=== PATIENT | female | born 1970 | race Caucasian/White ===

== ENCOUNTER 2020-07-20 15:56 | Emergency (ER) | payer MEDICARE, MEDICAID, SELFPAY ==
--- NOTE | 2020-07-20 | ECG_ITS ---
Test Reason : CP Blood Pressure : / mmHG Vent. Rate : 085 BPM Atrial Rate : 085 BPM P-R Int : 166 ms QRS Dur : 078 ms QT Int : 400 ms P-R-T Axes : 039 -02 028 degrees QTc Int : 476 ms Normal sinus rhythm Cannot rule out Anterior infarct (cited on or before 03-MAY-2019) Abnormal ECG When compared with ECG of 15-JUL-2020 15:26, Heart rate has decreased Referred By: Ry Gonzalez Electronically Signed By:REYNA POWER
--- NOTE | 2020-07-20 | XR_ITS ---
EXAMINATION: XR CHEST CLINICAL INFORMATION: Shortness of breath COMPARISON: 07/15/2020 TECHNIQUE: 2 views of the chest were obtained. FINDINGS: No significant abnormality is noted involving the heart, lungs, mediastinum, bony thorax or soft tissues. Again seen is a left chest wall port with its tip at the SVC/RA junction. IMPRESSION: No acute intrathoracic disease.
--- NOTE | 2020-07-20 18:32 | ED_ITS ---
HPI - Asthma General Chief Complaint: Dyspnea <Ry Gonzalez MD - Last Filed: 07/21/20 08:53> Stated Complaint: sob <Ry Gonzalez MD - Last Filed: 07/21/20 08:53> Time Seen by Provider: 07/20/20 18:32 <Ry Gonzalez MD - Last Filed: 07/21/20 08:53> Source: patient <Ry Gonzalez MD - Last Filed: 07/21/20 08:53> Mode of arrival: ambulatory <Ry Gonzalez MD - Last Filed: 07/21/20 08:53> Limitations: no limitations <Ry Gonzalez MD - Last Filed: 07/21/20 08:53> History of Present Illness HPI Narrative: patient was admitted and discharged yesterday, had a cardiac work up. Patient has a clotting disorder and her heart is racing. Patient has been ad mitted mulitple times in the last 3 weeks. <Ry Gonzalez MD - Last Filed: 07/21/20 08:53> MD complaint: shortness of breath <Ry Gonzalez MD - Last Filed: 07/21/20 08:53> Onset (ago): hour(s) <Ry Gonzalez MD - Last Filed: 07/21/20 08:53> Severity: moderate <Ry Gonzalez MD - Last Filed: 07/21/20 08:53> Associated symptoms: dry cough <Ry Gonzalez MD - Last Filed: 07/21/20 08:53> Asthma History: adult onset <Ry Gonzalez MD - Last Filed: 07/21/20 08:53> Related Data Current Asthma Therapy: inhaled bronchodilator, inhaled steroid and recent oral steroid <Ry Gonzalez MD - Last Filed: 07/21/20 08:53> Allergies/Adverse Reactions: Allergies Allergy/AdvReac Type Severity Reaction Status Date / Time dexamethasone [From DECADRON] Allergy Severe HIVES Verified 07/20/20 20:23 oxycodone [From PERCOCET] Allergy Severe HIVES Verified 07/20/20 20:23 azithromycin Allergy Intermediate ITCHING Verified 07/20/20 20:23 [From ZITHROMAX Z-XANDER] acetaminophen [Percocet] Allergy Unknown Unknown Verified 07/20/20 20:23 amoxicillin [AMOXICILLIN] Allergy Unknown UNKNOWN, Verified 07/20/20 20:23 hives, swelling budesonide [From SYMBICORT] Allergy Unknown UNKNOWN Verified 07/20/20 20:23 cefpodoxime [From VANTIN] Allergy Unknown UNKNOWN Verified 07/20/20 20:23 cefuroxime [From CEFTIN] Allergy Unknown UNKNOWN Verified 07/20/20 21:42 Cephalosporins Allergy Unknown UNKNOWN Verified 07/20/20 20:23 [CEPHALOSPORINS] ciprofloxacin [From CIPRO] Allergy Unknown UNKNOWN Verified 07/20/20 20:23 diazepam [DIAZEPAM] Allergy Unknown ITCHING Verified 07/20/20 20:23 diphtheria,pertussis Allergy Unknown Unknown Verified 07/20/20 20:23 (acellular),te [Adacel(Tdap Adolesn/Adult)(PF)] erythromycin base Allergy Unknown UNKNOWN Verified 07/20/20 20:23 [ERYTHROMYCIN BASE] fluticasone [Advair Diskus] Allergy Unknown Unknown Verified 07/20/20 20:23 formoterol [From SYMBICORT] Allergy Unknown UNKNOWN Verified 07/20/20 20:23 hydrocodone [From VICODIN] Allergy Unknown unknown Verified 07/20/20 20:23 Iodinated Contrast Media Allergy Unknown UNKNOWN Verified 07/20/20 20:23 [CONTRAST, IV] levofloxacin [From LEVAQUIN] Allergy Unknown UNKNOWN Verified 07/20/20 20:23 penicillin G Allergy Unknown Unknown Verified 07/20/20 20:23 penicillin V Allergy Unknown Unknown Verified 07/20/20 20:23 Penicillins [PENICILLINS] Allergy Unknown UNKNOWN Verified 07/20/20 20:23 salmeterol [Advair Diskus] Allergy Unknown Unknown Verified 07/20/20 20:23 sertraline [From ZOLOFT] Allergy Unknown SUICIDAL Verified 07/20/20 20:23 Sulfa (Sulfonamide Allergy Unknown hives Verified 07/20/20 20:23 Antibiotics) tetanus and diphtheria Allergy Unknown UNKNOWN Verified 07/20/20 20:23 toxoids [TETANUS & DIPHTHERIA TOXOIDS] Vantin Allergy Unknown Unknown Verified 07/20/20 20:23 ketorolac [From TORADOL] AdvReac Mild ITCHING Verified 07/20/20 20:23 Ceftin Allergy Unknown Unknown Uncoded 07/20/20 20:23 IV dye Allergy Unknown Unknown Uncoded 07/20/20 20:23 Symbicort Allergy Unknown Unknown Uncoded 07/20/20 20:23 Tetanus Allergy Unknown Unknown Uncoded 07/20/20 20:23 Erythromycin Allergy Unknown Uncoded 07/20/20 20:23 <Ry Gonzalez MD - Last Filed: 07/21/20 08:53> Review of Systems Constitutional: Constitutional: Reports no additional constitutional complaints <Ry Gonzalez MD - Last Filed: 07/21/20 08:53> Eyes: Eyes: Reports no additional eye complaints <Ry Gonzalez MD - Last Filed: 07/21/20 08:53> ENT: Denies dizziness <Ry Gonzalez MD - Last Filed: 07/21/20 08:53> Cardiovascular: Cardiovascular: Reports no additional cardiovascular complaints <Ry Gonzalez MD - Last Filed: 07/21/20 08:53> Respiratory: Respiratory: Reports as per HPI <Ry Gonzalez MD - Last Filed: 07/21/20 08:53> Gastrointestinal: Gastrointestinal: Reports no additional gastrointestinal complaints <Ry Gonzalez MD - Last Filed: 07/21/20 08:53> Genitourinary: Genitourinary: Reports no additional female genitourinary complaints <Ry Gonzalez MD - Last Filed: 07/21/20 08:53> Musculoskeletal: Musculoskeletal: Reports no additional musculoskeletal complaints <Ry Gonzalez MD - Last Filed: 07/21/20 08:53> Integumentary/Breasts: Skin/Breast: Denies rash <Ry Gonzalez MD - Last Filed: 07/21/20 08:53> Neurologic: Reports system reviewed and no additional complaints, except as documented, Denies dizziness and Denies Sensory deficit (Neuro) <Ry Gonzalez MD - Last Filed: 07/21/20 08:53> Psychiatric: Psychiatric: Denies anxiety <Ry Gonzalez MD - Last Filed: 07/21/20 08:53> PMFSH Past Medical History Medical History: Medical History Anxiety Asthma Depression DVT (deep venous thrombosis) <Ry Gonzalez MD - Last Filed: 07/21/20 08:53> Social History Social History: Social History Advance Directives: No Advance Directives Information Provided: No <Ry Gonzalez MD - Last Filed: 07/21/20 08:53> Physical Exam Vital Signs and I&O and Narrative: Vital Signs and I&O: Vital Signs Temp 98.0 F 07/20/20 21:32 Pulse 86 07/20/20 22:53 Resp 16 07/20/20 22:53 BP 116/60 07/20/20 22:53 Pulse Ox 98 07/20/20 22:53 Intake & Output 07/20/20 07/21/20 07/21/20 18:59 06:59 18:59 Weight 99.79 kg Body Mass Index 43.0 <Ry Gonzalez MD - Last Filed: 07/21/20 08:53> Vital Signs and I&O: Vital Signs Temp 98.0 F 07/20/20 21:32 Pulse 86 07/20/20 22:53 Resp 16 07/20/20 22:53 BP 116/60 07/20/20 22:53 Pulse Ox 98 07/20/20 22:53 Intake & Output 07/20/20 07/21/20 07/21/20 18:59 06:59 18:59 Weight 99.79 kg Body Mass Index 43.0 <Arnie Vital MD - Last Filed: 07/20/20 23:23> Const: General: comfortable <Ry Gonzalez MD - Last Filed: 07/21/20 08:53> Nutritional Appearance: obese <Ry Gonzalez MD - Last Filed: 07/21/20 08:53> Orientation/consciousness: oriented to person and patient oriented x3 <Ry Gonzalez MD - Last Filed: 07/21/20 08:53> Limitations: no limitations <Ry Gonzalez MD - Last Filed: 07/21/20 08:53> HENMT: Head: Yes normal to inspection <Ry Gonzalez MD - Last Filed: 07/21/20 08:53> Ears: external ears normal <Ry Gonzalez MD - Last Filed: 07/21/20 08:53> General nose exam: Normal external nose present <Ry Gonzalez MD - Last Filed: 07/21/20 08:53> Mouth: Normal oral and palatal mucosa present and oropharynx normal <Ry Gonzalez MD - Last Filed: 07/21/20 08:53> Throat: Yes posterior oropharynx normal <Ry Gonzalez MD - Last Filed: 07/21/20 08:53> Eyes: General: appearance normal, both eyes and all related structures <Ry Gonzalez MD - Last Filed: 07/21/20 08:53> Neck: Other: supple <Ry Gonzalez MD - Last Filed: 07/21/20 08:53> Neck: Yes normal visual inspection <Ry Gonzalez MD - Last Filed: 07/21/20 08:53> Chest: Chest palpation & inspection: normal inspection of the chest <Ry Gonzalez MD - Last Filed: 07/21/20 08:53> Resp: Auscultation: clear to auscultation bilaterally <Ry Gonzalez MD - Last Filed: 07/21/20 08:53> Cardio: Jugular venous distension: no JVD <Ry Gonzalez MD - Last Filed: 07/21/20 08:53> Rate: regular rate <Ry Gonzalez MD - Last Filed: 07/21/20 08:53> Rhythm: regular rhythm <Ry Gonzalez MD - Last Filed: 07/21/20 08:53> Heart sounds: S1 normal heart sound present and S2 normal heart sound present <Ry Gonzalez MD - Last Filed: 07/21/20 08:53> GI: Inspection: Yes normal to inspection <Ry Gonzalez MD - Last Filed: 07/21/20 08:53> Palpation (GI): Soft to palpation, nontender and No hepatosplenomegaly present <Ry Gonzalez MD - Last Filed: 07/21/20 08:53> Auscultation: normal bowel sounds <Ry Gonzalez MD - Last Filed: 07/21/20 08:53> : General: Yes no CVA tenderness <Ry Gonzalez MD - Last Filed: 07/21/20 08:53> Back/Spine/Pelvis: Back: no CVA tenderness <Ry Gonzalez MD - Last Filed: 07/21/20 08:53> Skin: General skin exam: no rashes or lesions noted <Ry Gonzalez MD - Last Filed: 07/21/20 08:53> Neuro: General: oriented to person and patient oriented x3 <Ry Gonzalez MD - Last Filed: 07/21/20 08:53> Cranial nerves: Yes CN's II-XII intact bilaterally <Ry Gonzalez MD - Last Filed: 07/21/20 08:53> Motor exam (neuro): 5/5 motor strength present throughout <Ry Gonzalez MD - Last Filed: 07/21/20 08:53> Sensory Exam: No Sensory deficit (Neuro) <Ry Gonzalez MD - Last Filed: 07/21/20 08:53> Extrem: General: Yes normal to inspection <Ry Gonzalez MD - Last Filed: 07/21/20 08:53> Psych: Appearance: grossly normal <Ry Gonzalez MD - Last Filed: 07/21/20 08:53> Course Reevaluation(s) Reevaluation #1: still awaiting blood draw <Ry Gonzalez MD - Last Filed: 07/21/20 08:53> Time: 20:46 <Ry Gonzalez MD - Last Filed: 07/21/20 08:53> Reevaluation #2: signed patient out to Dr. Vital expect work up to be negative and patient to go home <Ry Gonzalez MD - Last Filed: 07/21/20 08:53> Reevaluation #3: I received signout from Dr. Gonzalez <Arnie Vital MD - Last Filed: 07/20/20 23:23> Time: 21:00 <Arnie Vital MD - Last Filed: 07/20/20 23:23> Additional Reevaluation(s): 2230: Patients lab work, chest x-ray have returned. Her INR was subtherapeutic, which the patient was made aware of. Chest x-ray is unremarkable. Troponin and EKG are not consistent with myocardial ischemia. I have low suspicion of pulmonary embolism this patient as She is not hypoxic, she is not tachycardic and reports that she has been compliant with her anticoagulation although it is subtherapeutic she has had numerous supratherapeutic INRs over the past several days when she was an inpatient. I received additional history from the patient she has been experiencing left-sided chest pain that is pleuritic in nature without any neurologic symptoms and I do not think this is an aortic dissection. She was provided with discharge instructions and return precautions which she acknowledged. <Arnie Vital MD - Last Filed: 07/20/20 23:23> MDM - Asthma Lab Data Result diagrams: : 07/20/20 21:13 07/20/20 21:13 <Ry Gonzalez MD - Last Filed: 07/21/20 08:53> Labs: Lab Results 07/20/20 07/20/20 07/20/20 Range/Units 21:13 21:13 21:13 WBC 5.8 (4.8-10.8) X10*3/uL RBC 3.64 L (4.20-5.50) X10*6/uL Hgb 10.5 L (12.0-16.0) g/dl Hct 31.8 L (37-47) % MCV 87.4 (80-98) fL MCH 28.8 (27.0-33.0) pg MCHC 33.0 (31.0-35.0) g/dl RDW 14.4 (11.0-16.0) % Plt Count 223 (160-400) X10*3/uL MPV 11.0 (9.4-12.3) fL Immature Gran % (Auto) 1.0 H (0.0-0.4) % Neut % (Auto) 64.0 (45-73) % Lymph % (Auto) 24.0 (20-40) % [place] % (Auto) 7.7 (2-11) % Eos % (Auto) 3.3 (0-4) % Baso % (Auto) 0.0 (0-2) % Neut # (Auto) 3.7 (2.0-8.3) X10*3/uL Lymph # (Auto) 1.4 (1.2-4.9) X10*3/uL [place] # (Auto) 0.5 (0.1-1.2) X10*3/uL Eos # (Auto) 0.2 (0.0-0.4) X10*3/uL Baso # (Auto) 0.0 (0.0-0.2) X10*3/uL Abs Immat Gran (auto) 0.06 H (0.00-0.03) X10*3/uL Absolute Nucleated RBC 0.000 (0.0-0.012) X10*3/uL Nucleated RBC % (auto) 0.0 (0.0-0.2) /100WBC PT (10.8-13.0) SEC INR (0.9-1.1) Sodium 138 (135-145) mmol/L Potassium 3.5 (3.3-5.1) mmol/l Chloride 108 (96-108) mmol/L Carbon Dioxide 23 (22-29) mmol/L Anion Gap 11 L (12-20) BUN 26 H (9-16) mg/dL Creatinine 0.95 (0.5-1.4) mg/dL Estim Creat Clear Calc 75.1 Estimated GFR > 60 Random Glucose 114 (60-115) mg/dL Calcium 7.9 L (8.4-10.2) mg/dL Troponin I High Sens < 3.5 (<3.5-17.0) ng/L 07/20/20 Range/Units 21:13 WBC (4.8-10.8) X10*3/uL RBC (4.20-5.50) X10*6/uL Hgb (12.0-16.0) g/dl Hct (37-47) % MCV (80-98) fL MCH (27.0-33.0) pg MCHC (31.0-35.0) g/dl RDW (11.0-16.0) % Plt Count (160-400) X10*3/uL MPV (9.4-12.3) fL Immature Gran % (Auto) (0.0-0.4) % Neut % (Auto) (45-73) % Lymph % (Auto) (20-40) % [place] % (Auto) (2-11) % Eos % (Auto) (0-4) % Baso % (Auto) (0-2) % Neut # (Auto) (2.0-8.3) X10*3/uL Lymph # (Auto) (1.2-4.9) X10*3/uL [place] # (Auto) (0.1-1.2) X10*3/uL Eos # (Auto) (0.0-0.4) X10*3/uL Baso # (Auto) (0.0-0.2) X10*3/uL Abs Immat Gran (auto) (0.00-0.03) X10*3/uL Absolute Nucleated RBC (0.0-0.012) X10*3/uL Nucleated RBC % (auto) (0.0-0.2) /100WBC PT 18.1 H (10.8-13.0) SEC INR 1.5 H (0.9-1.1) Sodium (135-145) mmol/L Potassium (3.3-5.1) mmol/l Chloride (96-108) mmol/L Carbon Dioxide (22-29) mmol/L Anion Gap (12-20) BUN (9-16) mg/dL Creatinine (0.5-1.4) mg/dL Estim Creat Clear Calc Estimated GFR Random Glucose (60-115) mg/dL Calcium (8.4-10.2) mg/dL Troponin I High Sens (<3.5-17.0) ng/L <Ry Gonzalez MD - Last Filed: 07/21/20 08:53> Lab Results 07/20/20 07/20/20 07/20/20 Range/Units 21:13 21:13 21:13 WBC 5.8 (4.8-10.8) X10*3/uL RBC 3.64 L (4.20-5.50) X10*6/uL Hgb 10.5 L (12.0-16.0) g/dl Hct 31.8 L (37-47) % MCV 87.4 (80-98) fL MCH 28.8 (27.0-33.0) pg MCHC 33.0 (31.0-35.0) g/dl RDW 14.4 (11.0-16.0) % Plt Count 223 (160-400) X10*3/uL MPV 11.0 (9.4-12.3) fL Immature Gran % (Auto) 1.0 H (0.0-0.4) % Neut % (Auto) 64.0 (45-73) % Lymph % (Auto) 24.0 (20-40) % [place] % (Auto) 7.7 (2-11) % Eos % (Auto) 3.3 (0-4) % Baso % (Auto) 0.0 (0-2) % Neut # (Auto) 3.7 (2.0-8.3) X10*3/uL Lymph # (Auto) 1.4 (1.2-4.9) X10*3/uL [place] # (Auto) 0.5 (0.1-1.2) X10*3/uL Eos # (Auto) 0.2 (0.0-0.4) X10*3/uL Baso # (Auto) 0.0 (0.0-0.2) X10*3/uL Abs Immat Gran (auto) 0.06 H (0.00-0.03) X10*3/uL Absolute Nucleated RBC 0.000 (0.0-0.012) X10*3/uL Nucleated RBC % (auto) 0.0 (0.0-0.2) /100WBC PT (10.8-13.0) SEC INR (0.9-1.1) Sodium 138 (135-145) mmol/L Potassium 3.5 (3.3-5.1) mmol/l Chloride 108 (96-108) mmol/L Carbon Dioxide 23 (22-29) mmol/L Anion Gap 11 L (12-20) BUN 26 H (9-16) mg/dL Creatinine 0.95 (0.5-1.4) mg/dL Estim Creat Clear Calc 75.1 Estimated GFR > 60 Random Glucose 114 (60-115) mg/dL Calcium 7.9 L (8.4-10.2) mg/dL Troponin I High Sens < 3.5 (<3.5-17.0) ng/L 07/20/20 Range/Units 21:13 WBC (4.8-10.8) X10*3/uL RBC (4.20-5.50) X10*6/uL Hgb (12.0-16.0) g/dl Hct (37-47) % MCV (80-98) fL MCH (27.0-33.0) pg MCHC (31.0-35.0) g/dl RDW (11.0-16.0) % Plt Count (160-400) X10*3/uL MPV (9.4-12.3) fL Immature Gran % (Auto) (0.0-0.4) % Neut % (Auto) (45-73) % Lymph % (Auto) (20-40) % [place] % (Auto) (2-11) % Eos % (Auto) (0-4) % Baso % (Auto) (0-2) % Neut # (Auto) (2.0-8.3) X10*3/uL Lymph # (Auto) (1.2-4.9) X10*3/uL [place] # (Auto) (0.1-1.2) X10*3/uL Eos # (Auto) (0.0-0.4) X10*3/uL Baso # (Auto) (0.0-0.2) X10*3/uL Abs Immat Gran (auto) (0.00-0.03) X10*3/uL Absolute Nucleated RBC (0.0-0.012) X10*3/uL Nucleated RBC % (auto) (0.0-0.2) /100WBC PT 18.1 H (10.8-13.0) SEC INR 1.5 H (0.9-1.1) Sodium (135-145) mmol/L Potassium (3.3-5.1) mmol/l Chloride (96-108) mmol/L Carbon Dioxide (22-29) mmol/L Anion Gap (12-20) BUN (9-16) mg/dL Creatinine (0.5-1.4) mg/dL Estim Creat Clear Calc Estimated GFR Random Glucose (60-115) mg/dL Calcium (8.4-10.2) mg/dL Troponin I High Sens (<3.5-17.0) ng/L <Arnie Vital MD - Last Filed: 07/20/20 23:23> ECG Data Attestation: I personally reviewed and interpreted this ECG as follows: <Ry Gonzalez MD - Last Filed: 07/21/20 08:53> ECG interpretation date: 07/20/20 <Ry Gonzalez MD - Last Filed: 07/21/20 08:53> ECG interpretation time: 20:15 <Ry Gonzalez MD - Last Filed: 07/21/20 08:53> Interpretation: sinus rate of 85, no st or twave changes <Ry Gonzalez MD - Last Filed: 07/21/20 08:53> Discharge Plan Discharge Clinical Impression: Left-sided chest pain <Ry Gonzalez MD - Last Filed: 07/21/20 08:53> Patient Disposition: Home, Self-Care <Ry Gonzalez MD - Last Filed: 07/21/20 08:53> Instructions: Chest Pain (ED) <Ry Gonzalez MD - Last Filed: 07/21/20 08:53> Additional Instructions: Your lab work, WKG, and chest xray were reassuring. Your Coumadin was slightly low, please have this rechecked tomorrow or the next day. Please continue to take all of your medications at home. Followup with your primary care doctor in 1-2 days for reevaluation. If you develop any new or concerning symptoms please return to the emergency department. <Ry Gonzalez MD - Last Filed: 07/21/20 08:53> Interventions: ED Discharge Assessment Last Done: 07/20/20 23:42 <Ry Gonzalez MD - Last Filed: 07/21/20 08:53> Discharge Date/Time: 07/20/20 23:15 <Ry Gonzalez MD - Last Filed: 07/21/20 08:53>
[2020-07-20 18:47] VITALS: BP 120/42; PULSE 86; RESP 20; TEMP 36.6; O2SAT 98; BMI 43.0
--- NOTE | 2020-07-20 19:44 | PC.NURSE ---
Assumed care of pt. Pt resting in stretcher c/o pain which radiates into left shoulder, rating pain 8/10. MD aware. Pt alert, respirations easy, n/l. skin w/d. VS obtained. Will continue to montor pt.
[2020-07-20 19:46] VITALS: BP 118/56; PULSE 88; RESP 18
[2020-07-20 21:17] LABS: MANUAL DIFF FLAG NO
[2020-07-20] MEDS: Morphine Sulfate 4 MG/ML CARTRIDGE IVPUSH ×2 (21:17→22:48)
[2020-07-20 21:20] LABS: Eosinophils Absolute Auto 0.2 X10*3/uL (0.0-0.4); Eosinophils Percent Auto 3.3 % (0-4); Hematocrit 31.8 % (37-47); Hemoglobin 10.5 g/dl (12.0-16.0); Imm Gran Abs Auto 0.06 X10*3/uL (0.00-0.03); Lymphocytes Absolute Auto 1.4 X10*3/uL (1.2-4.9); Mean Corpuscular Hemoglobin 28.8 pg (27.0-33.0); Mean Corpuscular Volume 87.4 fL (80-98); Monocytes Absolute Auto 0.5 X10*3/uL (0.1-1.2); Monocytes Percent Auto 7.7 % (2-11); Neutrophils Absolute Auto 3.7 X10*3/uL (2.0-8.3); Platelet Count 223 X10*3/uL (160-400); Red Blood Count 3.64 X10*6/uL (4.20-5.50); Red Cell Distribution Width 14.4 % (11.0-16.0); White Blood Count 5.8 X10*3/uL (4.8-10.8)
[2020-07-20 21:30] LABS: INTERNATIONAL NORM RATIO 1.5 (0.9-1.1); Prothrombin Time 18.1 SEC (10.8-13.0)
[2020-07-20 21:32] VITALS: BP 119/64; PULSE 82; RESP 18; TEMP 36.7
--- NOTE | 2020-07-20 21:46 | PC.NURSE ---
Port accessed at 2114 and pt medicated for left sided chest pain rating pain 8/10.
[2020-07-20 21:48] LABS: Anion Gap 11 (12-20); Blood Urea Nitrogen 26 mg/dL (9-16); Calcium 7.9 mg/dL (8.4-10.2); Carbon Dioxide 23 mmol/L (22-29); Chloride 108 mmol/L (96-108); Creatinine Clr Calc Pharmacy 75.1; Estimated Glomerular Filt Rate > 60; Glucose Random 114 mg/dL (60-115); Potassium 3.5 mmol/l (3.3-5.1); Sodium 138 mmol/L (135-145)
[2020-07-20 21:53] LABS: Troponin-I High Sensitivity < 3.5 ng/L (<3.5-17.0)
[2020-07-20 22:06] VITALS: BP 119/64; PULSE 86; RESP 16; O2SAT 97
[2020-07-20] MEDS: Heparin Sodium,Porcine Flush 50 UNITS, 0.9 % Sodium Chloride Flush 5 ML IVFLUSH (22:30)
--- NOTE | 2020-07-20 22:52 | PC.NURSE ---
PT C/O PAIN TO LEFT CHEST AREA WHICH RADIATES INTO LEFT SHOULDER. PT MEDICATED PER EMAR FOR PAIN. PT C/O NAUSEA, MD AWARE.
[2020-07-20 22:53] VITALS: BP 116/60; PULSE 86; RESP 16; O2SAT 98
[2020-07-20] MEDS: ondansetron HCL 4 MG/2 ML VIAL IVPUSH (23:00)
== END 2020-07-20 23:15 | disposition home or self-care (01) ==
PROVIDERS: Emergency Medicine; Emergency Provider Emergency Medicine; PCP Family Medicine
DX: R07.9 Chest pain, unspecified (principal); J45.909 Unspecified asthma, uncomplicated; Z86.718 Personal history of other venous thrombosis and embolism; Z79.01 Long term (current) use of anticoagulants
CPT/HCPCS: 36415; 71046; 80048; 84484; 85025; 85610; 93005; 93010; 96374; 96375; 96376; 99284; J2270; J2405

== ENCOUNTER 2020-08-03 17:16 | Inpatient (IN) | payer MEDICARE, MEDICAID, SELFPAY ==
[2020-08-03 18:29] VITALS: PULSE 100; RESP 18; O2SAT 100
[2020-08-03 18:31] VITALS: BP 100/67; PULSE 112; RESP 22; TEMP 37.7; O2SAT 95; BMI 42.3
--- NOTE | 2020-08-03 19:04 | ECG_ITS ---
Test Reason : DYSPNEA Blood Pressure : / mmHG Vent. Rate : 097 BPM Atrial Rate : 097 BPM P-R Int : 154 ms QRS Dur : 070 ms QT Int : 372 ms P-R-T Axes : 035 -17 027 degrees QTc Int : 472 ms Normal sinus rhythm Left axis deviation Anterolateral infarct (cited on or before 03-MAY-2019) Abnormal ECG When compared with ECG of 20-JUL-2020 20:08, Heart rate has increased Referred By: Volodymyr Hernandez Electronically Signed By:BRIAN WILCOX MD
--- NOTE | 2020-08-03 19:11 | XR_ITS ---
EXAMINATION: XR CHEST CLINICAL INFORMATION: Cough and dyspnea. COMPARISON: Chest x-ray 07/20/2020 TECHNIQUE: Frontal portable view of the chest was obtained. 7:15 PM FINDINGS: Central port catheter tip projects over the right atrium and remains unchanged in position since prior study 07/20/2020. Lung volume is low. This causes crowding of the bronchovascular markings. Allowing for low inspiratory effort there does not appear to be significant pulmonary vascular congestion. There is no infiltrate or pleural effusion. There is no pneumothorax. IMPRESSION: Low lung volume. No acute abnormality of the chest.
--- NOTE | 2020-08-03 19:15 | ED.SOB ---
HPI - SOB/Dyspnea General Chief Complaint: Dyspnea <MARISOL Sandy Last Filed: 08/04/20 01:01> Stated Complaint: shortness of breath <MARISOL Sandy Last Filed: 08/04/20 01:01> Time Seen by Provider: 08/03/20 19:02 <MARISOL Sandy Last Filed: 08/04/20 01:01> Source: patient <MARISOL Sandy Last Filed: 08/04/20 01:01> Mode of arrival: ambulatory <MARISOL Sandy Last Filed: 08/04/20 01:01> Limitations: no limitations <MARISOL Sandy Last Filed: 08/04/20 01:01> History of Present Illness HPI Narrative: Patient presents to the ED for coughing, wheezing, and SOB for the past 2 weeks. Patient denies any swelling of lower extremity, calf pain, receive travel, or recent surgery. Patient states history of asthma. patient denies any chest pain on inspiration, leg swelling, calf pain, recent surgery, recent long travel, or control use. <MARISOL Sandy Last Filed: 08/04/20 01:01> MD elicited complaint: asthma attack <MARISOL Sandy Last Filed: 08/04/20 01:01> Pertinent past history: asthma and DVT <MARISOL Sandy Last Filed: 08/04/20 01:01> Related Data Home oxygen amount: none <MARISOL Sandy Last Filed: 08/04/20 01:01> Home Medications: Home Medications Medication Instructions Recorded Confirmed Trelegy Ellipta 1 inh INHALATION QID PRN 08/03/20 08/03/20 diltiazem HCl 180 mg PO DAILY 08/03/20 08/03/20 fluoxetine 60 mg PO BEDTIME 08/03/20 08/03/20 hydroxyzine HCl 50 mg PO BEDTIME PRN 08/03/20 08/03/20 montelukast 10 mg PO BEDTIME 08/03/20 08/03/20 omeprazole 40 mg PO BEDTIME 08/03/20 08/03/20 risperidone 0.25 mg PO BEDTIME 08/03/20 08/03/20 topiramate 50 mg PO BEDTIME 08/03/20 08/03/20 trazodone 100 mg PO BEDTIME 08/03/20 08/03/20 warfarin 5 mg PO 2XW 08/03/20 08/03/20 warfarin 15 mg PO 5XW 08/03/20 08/03/20 Previous Rx's Medication Instructions Recorded dextromethorphan-guaifenesin 10 ml PO Q4-8H PRN #118 ml 08/06/20 [Robitussin Cough-Chest Saad DM] morphine 15 mg PO Q6H PRN #8 tab 08/06/20 prednisone 20 mg PO DAILY #4 tab 08/06/20 <MARISOL Sandy - Last Filed: 08/04/20 01:01> Allergies/Adverse Reactions: Allergies Allergy/AdvReac Type Severity Reaction Status Date / Time dexamethasone [From DECADRON] Allergy Severe HIVES Verified 08/03/20 18:35 oxycodone [From PERCOCET] Allergy Severe HIVES Verified 08/03/20 18:35 azithromycin Allergy Intermediate ITCHING Verified 08/03/20 18:35 [From ZITHROMAX Z-XANDER] acetaminophen [Percocet] Allergy Unknown Unknown Verified 08/03/20 18:35 amoxicillin [AMOXICILLIN] Allergy Unknown UNKNOWN, Verified 08/03/20 18:35 hives, swelling budesonide [From SYMBICORT] Allergy Unknown UNKNOWN Verified 08/03/20 18:35 cefpodoxime [From VANTIN] Allergy Unknown UNKNOWN Verified 08/03/20 18:35 cefuroxime [From CEFTIN] Allergy Unknown UNKNOWN Verified 08/03/20 18:35 Cephalosporins Allergy Unknown UNKNOWN Verified 08/03/20 18:35 [CEPHALOSPORINS] ciprofloxacin [From CIPRO] Allergy Unknown UNKNOWN Verified 08/03/20 18:35 diazepam [DIAZEPAM] Allergy Unknown ITCHING Verified 08/03/20 18:35 diphtheria,pertussis Allergy Unknown Unknown Verified 08/03/20 18:35 (acellular),te [Adacel(Tdap Adolesn/Adult)(PF)] erythromycin base Allergy Unknown UNKNOWN Verified 08/03/20 18:35 [ERYTHROMYCIN BASE] fluticasone [Advair Diskus] Allergy Unknown Unknown Verified 08/03/20 18:35 formoterol [From SYMBICORT] Allergy Unknown UNKNOWN Verified 08/03/20 18:35 hydrocodone [From VICODIN] Allergy Unknown unknown Verified 08/03/20 18:35 Iodinated Contrast Media Allergy Unknown UNKNOWN Verified 08/03/20 18:35 [CONTRAST, IV] levofloxacin [From LEVAQUIN] Allergy Unknown UNKNOWN Verified 08/03/20 18:35 penicillin G Allergy Unknown Unknown Verified 08/03/20 18:35 penicillin V Allergy Unknown Unknown Verified 08/03/20 18:35 Penicillins [PENICILLINS] Allergy Unknown UNKNOWN Verified 08/03/20 18:35 salmeterol [Advair Diskus] Allergy Unknown Unknown Verified 08/03/20 18:35 sertraline [From ZOLOFT] Allergy Unknown SUICIDAL Verified 08/03/20 18:35 Sulfa (Sulfonamide Allergy Unknown hives Verified 08/03/20 18:35 Antibiotics) tetanus and diphtheria Allergy Unknown UNKNOWN Verified 08/03/20 18:35 toxoids [TETANUS & DIPHTHERIA TOXOIDS] Vantin Allergy Unknown Unknown Verified 08/03/20 18:35 ketorolac [From TORADOL] AdvReac Mild ITCHING Verified 08/03/20 18:35 Ceftin Allergy Unknown Unknown Uncoded 07/20/20 20:23 IV dye Allergy Unknown Unknown Uncoded 07/20/20 20:23 Symbicort Allergy Unknown Unknown Uncoded 07/20/20 20:23 Tetanus Allergy Unknown Unknown Uncoded 07/20/20 20:23 Erythromycin Allergy Unknown Uncoded 07/20/20 20:23 <MARISOL Sandy Last Filed: 08/04/20 01:01> Review of Systems Review of Systems: Yes all other systems are reviewed and are negative and unobtainable due to endotracheal tube <MARISOL Sandy Last Filed: 08/04/20 01:01> Constitutional: Constitutional: Reports as per HPI and Reports no additional constitutional complaints <MARISOL Sandy Last Filed: 08/04/20 01:01> Eyes: Eyes: Reports as per HPI and Reports no additional eye complaints <MARISOL Sandy Last Filed: 08/04/20 01:01> ENT: Reports system reviewed and no additional complaints, except as documented and Reports as per HPI <MARISOL Sandy Last Filed: 08/04/20 01:01> Cardiovascular: Cardiovascular: Reports as per HPI, Reports no additional cardiovascular complaints and Reports dyspnea <MARISOL Sandy Last Filed: 08/04/20 01:01> Respiratory: Respiratory: Reports cough, Reports pain with cough, Reports dyspnea and Reports wheezing <MARISOL Sandy - Last Filed: 08/04/20 01:01> Gastrointestinal: Gastrointestinal: Reports as per HPI and Reports no additional gastrointestinal complaints <MARISOL Sandy - Last Filed: 08/04/20 01:01> Musculoskeletal: Musculoskeletal: Reports no additional musculoskeletal complaints, Reports as per HPI and Reports back pain <MARISOL Sandy - Last Filed: 08/04/20 01:01> Allergic/Immunologic: Allergic/Immunologic: Reports wheezing <MARISOL Sandy - Last Filed: 08/04/20 01:01> [facility] Past Medical History Medical History: Medical History (Updated 08/05/20 @ 10:20 by Rodolfo Fairchild MD) Anxiety Asthma Depression DVT (deep venous thrombosis) Hypertension Morbid obesity <MARISOL Sandy - Last Filed: 08/04/20 01:01> Social History Social History: Social History Household Members: Family Housing: House Do you presently have visiting nurse or other home services: No Alcohol intake: never Smoking Status: Never smoker Smoked in Last 30 Days: No Second Hand Smoke Exposure: No Use of substances other than those prescribed or required for medical reasons: No Currently Displaying Signs/Symptoms of Drug Intoxication Withdrawal: No Any prior treatment program specific to substance use: No Have you been hit, kicked, punched, or otherwise hurt by someone within the past year? If so, by whom?: No Do you feel safe in your current relationship?: No Is there a partner from a previous relationship who is making you feel unsafe now?: No Are you made to feel afraid or neglected: No Advance Directives: No Advance Directives Information Provided: Yes Do you have thoughts of harming others: None Do you have a plan to hurt others: No Plan Recently lost weight without trying: No service: No Current occupational status: unemployed <MARISOL Sandy - Last Filed: 08/04/20 01:01> Physical Exam Vital Signs: Vital Signs: Vital Signs Temp Pulse Resp BP Pulse Ox 08/03/20 23:16 98.5 F 103 H 21 H 133/73 97 08/03/20 22:56 98.1 F 99 28 H 133/73 100 08/03/20 20:50 18 L 105 H 104/52 L 96 08/03/20 18:31 99.9 F 112 H 22 H 100/67 95 08/03/20 18:29 100 18 100 Body Mass Index 42.3 <MARISOL Sandy Last Filed: 08/04/20 01:01> Vital Signs: Vital Signs Temp Pulse Resp BP Pulse Ox 08/03/20 23:16 98.5 F 103 H 21 H 133/73 97 08/03/20 22:56 98.1 F 99 28 H 133/73 100 08/03/20 20:50 18 L 105 H 104/52 L 96 08/03/20 18:31 99.9 F 112 H 22 H 100/67 95 08/03/20 18:29 100 18 100 Body Mass Index 42.3 <Ry Gonzalez MD - Last Filed: 08/08/20 15:20> Const: General: cooperative, healthy appearing and comfortable <MARISOL Sandy Last Filed: 08/04/20 01:01> Orientation/consciousness: patient oriented x3 <MARISOL Sandy Last Filed: 08/04/20 01:01> HENMT: Head: Yes normal to inspection <MARISOL Sandy Last Filed: 08/04/20 01:01> Eyes: General: appearance normal, both eyes and all related structures <MARISOL Sandy Last Filed: 08/04/20 01:01> Neck: Neck: Yes normal visual inspection, Yes full ROM and Yes no lymphadenopathy <MARISOL Sandy Last Filed: 08/04/20 01:01> Chest: Chest palpation & inspection: normal inspection of the chest and normal palpation of entire chest wall <MARISOL Sandy Last Filed: 08/04/20 01:01> Resp: Auscultation: wheezes expiratory wheezes and throughout <MARISOL Sandy Last Filed: 08/04/20 01:01> Cardio: Jugular venous distension: no JVD <MARISOL Sandy Last Filed: 08/04/20 01:01> Rate: tachycardic <MARISOL Sandy Last Filed: 08/04/20 01:01> Heart sounds: S1 normal heart sound present and S2 normal heart sound present <MARISOL Sandy Last Filed: 08/04/20 01:01> GI: Inspection: Yes normal to inspection, Yes abdominal wall ecchymosis, No Abdominal wall edema and No distended <MARISOL Sandy Last Filed: 08/04/20 01:01> Palpation (GI): Soft to palpation, nontender, no guarding, not rigid and hepatosplenomegaly present <MARISOL Sandy Last Filed: 08/04/20 01:01> Percussion: Yes normal to percussion <MARISOL Sandy Last Filed: 08/04/20 01:01> : General: No CVA tenderness and Yes no CVA tenderness <MARISOL Sandy Last Filed: 08/04/20 01:01> Back/Spine/Pelvis: Back: no CVA tenderness, No CVA tenderness and No back tenderness <MARISOL Sandy Last Filed: 08/04/20 01:01> Skin: General skin exam: no rashes or lesions noted <MARISOL Sandy Last Filed: 08/04/20 01:01> Neuro: General: patient oriented x3, gait normal and CN's II-XI intact bilaterally <MARISOL Sandy Last Filed: 08/04/20 01:01> Cranial nerves: Yes CN's II-XII intact bilaterally <MARISOL Sandy Last Filed: 08/04/20 01:01> Extrem: Other: Lower extremites negative for pitting edema of lower extremites,calf pain, or redness <MARISOL Sandy Last Filed: 08/04/20 01:01> General: Yes normal to inspection and Yes full ROM <MARISOL Sandy Last Filed: 08/04/20 01:01> Psych: Appearance: grossly normal and well kempt <MARISOL Sandy Last Filed: 08/04/20 01:01> Course Course Course Narrative: History and physical exam indicate asthma exacerbation. albuterol, magnesium, solumderol, labs, and EKG ordered. Will re-evaluate patient. History and physical exam does not indicate PE <MARISOL Sandy - Last Filed: 08/04/20 01:01> I have reviewed the chart. Patient was never intubated despite statement in the chart. patient eventually went home provider to make an addendum <Ry Gonzalez MD - Last Filed: 08/08/20 15:20> Reevaluation(s) Reevaluation #1: Patient states she usually for her asthma exacerbations, she receives ketamine to help with her cough and SOB. Patient states ketamine helps with asthma exacerbation esoeciallly the cough. Patient recievied ketamine on 06/25/2020. <MARISOL Sandy - Last Filed: 08/04/20 01:01> Time: 20:33 <MARISOL Sandy - Last Filed: 08/04/20 01:01> Reevaluation #2: While walking around the ED, patient 02 saturation remained above 97%. Patient still has wheezing and states shorteness of breath. Labs and chest xray are normal. patient accepted by hospitalist, Dr. Pop, for admission for asthma exacaerbation. <MARISOL Sandy - Last Filed: 08/04/20 01:01> Time: 00:56 <MARISOL Sandy - Last Filed: 08/04/20 01:01> Reevaluation #3: Rapid Covid 19 test negtive <MARISOL Sandy - Last Filed: 08/04/20 01:01> Time: 00:56 <MARISOL Sandy - Last Filed: 08/04/20 01:01> MDM - SOB/Dyspnea MDM Narrative Medical decision making narrative: Asthma exacerbation <MARISOL Sandy - Last Filed: 08/04/20 01:01> Differential Diagnosis Differential diagnosis: Likely asthma with exacerbation <MARISOL Sandy - Last Filed: 08/04/20 01:01> Lab Data Result diagrams: : 08/03/20 19:52 08/03/20 19:52 <MARISOL Sandy - Last Filed: 08/04/20 01:01> Labs: Lab Results 08/03/20 08/03/20 08/03/20 Range/Units 19:52 19:52 19:52 WBC 5.8 (4.8-10.8) X10*3/uL RBC 3.84 L (4.20-5.50) X10*6/uL Hgb 10.8 L (12.0-16.0) g/dl Hct 32.9 L (37-47) % MCV 85.7 (80-98) fL MCH 28.1 (27.0-33.0) pg MCHC 32.8 (31.0-35.0) g/dl RDW 14.8 (11.0-16.0) % Plt Count 236 (160-400) X10*3/uL MPV 12.1 (9.4-12.3) fL Immature Gran % (Auto) 0.2 (0.0-0.4) % Neut % (Auto) 57.9 (45-73) % Lymph % (Auto) 32.1 (20-40) % [place] % (Auto) 8.1 (2-11) % Eos % (Auto) 1.2 (0-4) % Baso % (Auto) 0.5 (0-2) % Lymph # (Auto) 1.9 (1.2-4.9) X10*3/uL [place] # (Auto) 0.5 (0.1-1.2) X10*3/uL Eos # (Auto) 0.1 (0.0-0.4) X10*3/uL Baso # (Auto) 0.0 (0.0-0.2) X10*3/uL Abs Immat Gran (auto) 0.01 (0.00-0.03) X10*3/uL Absolute Neuts (auto) 3.4 (2.0-8.3) X10*3/uL Absolute Nucleated RBC 0.000 (0.0-0.012) X10*3/uL Nucleated RBC % (auto) 0.0 (0.0-0.2) /100WBC PT 28.9 H D (10.8-13.0) SEC INR 2.4 H (0.9-1.1) APTT 92.7 H* (24.1-38.0) SEC Sodium 138 (135-145) mmol/L Potassium 3.9 (3.3-5.1) mmol/l Chloride 107 (96-108) mmol/L Carbon Dioxide 21 L (22-29) mmol/L Anion Gap 14 (12-20) BUN 12 D (9-16) mg/dL Creatinine 0.81 (0.5-1.4) mg/dL Estim Creat Clear Calc 87.4 Estimated GFR > 60 Random Glucose 99 (60-115) mg/dL Calcium 9.2 (8.4-10.2) mg/dL Total Bilirubin 0.3 (0.0-1.0) mg/dL AST 19 (5-31) U/L ALT 29 (0-31) U/L Alkaline Phosphatase 89 (39-117) U/L Troponin I High Sens (<3.5-17.0) ng/L B-Natriuretic Peptide (<100) pg/mL Total Protein 6.3 L (6.5-8.0) g/dL Albumin 4.2 (3.5-5.0) g/dL Coronavirus (PCR) (Negative) 08/03/20 08/03/20 Range/Units 19:52 23:37 WBC (4.8-10.8) X10*3/uL RBC (4.20-5.50) X10*6/uL Hgb (12.0-16.0) g/dl Hct (37-47) % MCV (80-98) fL MCH (27.0-33.0) pg MCHC (31.0-35.0) g/dl RDW (11.0-16.0) % Plt Count (160-400) X10*3/uL MPV (9.4-12.3) fL Immature Gran % (Auto) (0.0-0.4) % Neut % (Auto) (45-73) % Lymph % (Auto) (20-40) % [place] % (Auto) (2-11) % Eos % (Auto) (0-4) % Baso % (Auto) (0-2) % Lymph # (Auto) (1.2-4.9) X10*3/uL [place] # (Auto) (0.1-1.2) X10*3/uL Eos # (Auto) (0.0-0.4) X10*3/uL Baso # (Auto) (0.0-0.2) X10*3/uL Abs Immat Gran (auto) (0.00-0.03) X10*3/uL Absolute Neuts (auto) (2.0-8.3) X10*3/uL Absolute Nucleated RBC (0.0-0.012) X10*3/uL Nucleated RBC % (auto) (0.0-0.2) /100WBC PT (10.8-13.0) SEC INR (0.9-1.1) APTT (24.1-38.0) SEC Sodium (135-145) mmol/L Potassium (3.3-5.1) mmol/l Chloride (96-108) mmol/L Carbon Dioxide (22-29) mmol/L Anion Gap (12-20) BUN (9-16) mg/dL Creatinine (0.5-1.4) mg/dL Estim Creat Clear Calc Estimated GFR Random Glucose (60-115) mg/dL Calcium (8.4-10.2) mg/dL Total Bilirubin (0.0-1.0) mg/dL AST (5-31) U/L ALT (0-31) U/L Alkaline Phosphatase (39-117) U/L Troponin I High Sens < 3.5 (<3.5-17.0) ng/L B-Natriuretic Peptide < 10 (<100) pg/mL Total Protein (6.5-8.0) g/dL Albumin (3.5-5.0) g/dL Coronavirus (PCR) NEGATIVE (Negative) <MARISOL Sandy - Last Filed: 08/04/20 01:01> Lab Results 08/03/20 08/03/20 08/03/20 Range/Units 19:52 19:52 19:52 WBC 5.8 (4.8-10.8) X10*3/uL RBC 3.84 L (4.20-5.50) X10*6/uL Hgb 10.8 L (12.0-16.0) g/dl Hct 32.9 L (37-47) % MCV 85.7 (80-98) fL MCH 28.1 (27.0-33.0) pg MCHC 32.8 (31.0-35.0) g/dl RDW 14.8 (11.0-16.0) % Plt Count 236 (160-400) X10*3/uL MPV 12.1 (9.4-12.3) fL Immature Gran % (Auto) 0.2 (0.0-0.4) % Neut % (Auto) 57.9 (45-73) % Lymph % (Auto) 32.1 (20-40) % [place] % (Auto) 8.1 (2-11) % Eos % (Auto) 1.2 (0-4) % Baso % (Auto) 0.5 (0-2) % Lymph # (Auto) 1.9 (1.2-4.9) X10*3/uL [place] # (Auto) 0.5 (0.1-1.2) X10*3/uL Eos # (Auto) 0.1 (0.0-0.4) X10*3/uL Baso # (Auto) 0.0 (0.0-0.2) X10*3/uL Abs Immat Gran (auto) 0.01 (0.00-0.03) X10*3/uL Absolute Neuts (auto) 3.4 (2.0-8.3) X10*3/uL Absolute Nucleated RBC 0.000 (0.0-0.012) X10*3/uL Nucleated RBC % (auto) 0.0 (0.0-0.2) /100WBC PT 28.9 H D (10.8-13.0) SEC INR 2.4 H (0.9-1.1) APTT 92.7 H* (24.1-38.0) SEC Sodium 138 (135-145) mmol/L Potassium 3.9 (3.3-5.1) mmol/l Chloride 107 (96-108) mmol/L Carbon Dioxide 21 L (22-29) mmol/L Anion Gap 14 (12-20) BUN 12 D (9-16) mg/dL Creatinine 0.81 (0.5-1.4) mg/dL Estim Creat Clear Calc 87.4 Estimated GFR > 60 Random Glucose 99 (60-115) mg/dL Calcium 9.2 (8.4-10.2) mg/dL Total Bilirubin 0.3 (0.0-1.0) mg/dL AST 19 (5-31) U/L ALT 29 (0-31) U/L Alkaline Phosphatase 89 (39-117) U/L Troponin I High Sens (<3.5-17.0) ng/L B-Natriuretic Peptide (<100) pg/mL Total Protein 6.3 L (6.5-8.0) g/dL Albumin 4.2 (3.5-5.0) g/dL Coronavirus (PCR) (Negative) 08/03/20 08/03/20 Range/Units 19:52 23:37 WBC (4.8-10.8) X10*3/uL RBC (4.20-5.50) X10*6/uL Hgb (12.0-16.0) g/dl Hct (37-47) % MCV (80-98) fL MCH (27.0-33.0) pg MCHC (31.0-35.0) g/dl RDW (11.0-16.0) % Plt Count (160-400) X10*3/uL MPV (9.4-12.3) fL Immature Gran % (Auto) (0.0-0.4) % Neut % (Auto) (45-73) % Lymph % (Auto) (20-40) % [place] % (Auto) (2-11) % Eos % (Auto) (0-4) % Baso % (Auto) (0-2) % Lymph # (Auto) (1.2-4.9) X10*3/uL [place] # (Auto) (0.1-1.2) X10*3/uL Eos # (Auto) (0.0-0.4) X10*3/uL Baso # (Auto) (0.0-0.2) X10*3/uL Abs Immat Gran (auto) (0.00-0.03) X10*3/uL Absolute Neuts (auto) (2.0-8.3) X10*3/uL Absolute Nucleated RBC (0.0-0.012) X10*3/uL Nucleated RBC % (auto) (0.0-0.2) /100WBC PT (10.8-13.0) SEC INR (0.9-1.1) APTT (24.1-38.0) SEC Sodium (135-145) mmol/L Potassium (3.3-5.1) mmol/l Chloride (96-108) mmol/L Carbon Dioxide (22-29) mmol/L Anion Gap (12-20) BUN (9-16) mg/dL Creatinine (0.5-1.4) mg/dL Estim Creat Clear Calc Estimated GFR Random Glucose (60-115) mg/dL Calcium (8.4-10.2) mg/dL Total Bilirubin (0.0-1.0) mg/dL AST (5-31) U/L ALT (0-31) U/L Alkaline Phosphatase (39-117) U/L Troponin I High Sens < 3.5 (<3.5-17.0) ng/L B-Natriuretic Peptide < 10 (<100) pg/mL Total Protein (6.5-8.0) g/dL Albumin (3.5-5.0) g/dL Coronavirus (PCR) NEGATIVE (Negative) <Ry Gonzalez MD - Last Filed: 08/08/20 15:20> ECG Data Interpretation: Normal Sign Rhythm. VEntricular Rate of 97. Anterolateral infarct, age undertermined. Negative for STEMI <MARISOL Sandy - Last Filed: 08/04/20 01:01> Discharge Plan Discharge Clinical Impression: Asthma with exacerbation <MARISOL Sandy - Last Filed: 08/04/20 01:01> Patient Disposition: Admitted As Inpatient <MARISOL Sandy - Last Filed: 08/04/20 01:01> Interventions: Admission Worksheet (ED) Last Done: 08/04/20 01:59 <MARISOL Sandy - Last Filed: 08/04/20 01:01> Discharge Date/Time: 08/04/20 02:00 <MARISOL Sandy - Last Filed: 08/04/20 01:01>
[2020-08-03 19:58] LABS: MANUAL DIFF FLAG NO
[2020-08-03 20:01] LABS: Basophils Percent Auto 0.5 % (0-2); Eosinophils Absolute Auto 0.1 X10*3/uL (0.0-0.4); Eosinophils Percent Auto 1.2 % (0-4); Hematocrit 32.9 % (37-47); Hemoglobin 10.8 g/dl (12.0-16.0); Imm Gran Abs Auto 0.01 X10*3/uL (0.00-0.03); Imm Gran Pct Auto 0.2 % (0.0-0.4); Lymphocytes Absolute Auto 1.9 X10*3/uL (1.2-4.9); Lymphocytes Percent Auto 32.1 % (20-40); Mean Corpuscular HGB Conc 32.8 g/dl (31.0-35.0); Mean Corpuscular Hemoglobin 28.1 pg (27.0-33.0); Mean Corpuscular Volume 85.7 fL (80-98); Mean Platelet Volume 12.1 fL (9.4-12.3); Monocytes Absolute Auto 0.5 X10*3/uL (0.1-1.2); Monocytes Percent Auto 8.1 % (2-11); Neutrophils Absolute Auto 3.4 X10*3/uL (2.0-8.3); Neutrophils Percent Auto 57.9 % (45-73); Platelet Count 236 X10*3/uL (160-400); Red Blood Count 3.84 X10*6/uL (4.20-5.50); Red Cell Distribution Width 14.8 % (11.0-16.0); White Blood Count 5.8 X10*3/uL (4.8-10.8)
[2020-08-03 20:07] LABS: INTERNATIONAL NORM RATIO 2.4 (0.9-1.1); Prothrombin Time 28.9 SEC (10.8-13.0)
[2020-08-03 20:12] LABS: Partial Thromboplastin Time 92.7 SEC (24.1-38.0)
[2020-08-03] MEDS: methylPREDNISolone Sod Succ/PF 125 MG/2 ML VIAL IVPUSH (20:18)
[2020-08-03] MEDS: Magnesium Sulfate/H2O 2 GM/50 ML PIGGYBACK IV (20:18)
[2020-08-03] MEDS: diphenhydrAMINE HCL 50 MG/ML VIAL IVPUSH (20:18)
[2020-08-03] MEDS: Albuterol/Iprat 2.5/0.5MG 3 ML AMPUL.NEB INHALE (20:25)
[2020-08-03 20:31] LABS: Alanine Aminotransferase 29 U/L (0-31); Albumin Level 4.2 g/dL (3.5-5.0); Alkaline Phosphatase 89 U/L (39-117); Anion Gap 14 (12-20); Aspartate Amino Transferase 19 U/L (5-31); Bilirubin Total 0.3 mg/dL (0.0-1.0); Blood Urea Nitrogen 12 mg/dL (9-16); Calcium 9.2 mg/dL (8.4-10.2); Carbon Dioxide 21 mmol/L (22-29); Chloride 107 mmol/L (96-108); Creatinine Clr Calc Pharmacy 87.4; Estimated Glomerular Filt Rate > 60; Glucose Random 99 mg/dL (60-115); Potassium 3.9 mmol/l (3.3-5.1); Sodium 138 mmol/L (135-145); Total Protein 6.3 g/dL (6.5-8.0)
[2020-08-03 20:37] LABS: B Type Natriuretic Peptide < 10 pg/mL (<100); Troponin-I High Sensitivity < 3.5 ng/L (<3.5-17.0)
[2020-08-03] MEDS: guaiFEN/Codeine SF 200/20/10ML 10 ML LIQUID PO (20:46)
[2020-08-03 20:50] VITALS: BP 104/52; PULSE 18; RESP 105; O2SAT 96
[2020-08-03] MEDS: Ketamine HCl 500 MG/5 ML VIAL 50 MG IM (20:57)
[2020-08-03 22:56] VITALS: BP 133/73; PULSE 99; RESP 28; TEMP 36.7; O2SAT 100
[2020-08-03 23:02] VITALS: PULSE 106; RESP 97; RESP 98
[2020-08-03] MEDS: Benzonatate 100 MG CAPSULE PO (23:15)
[2020-08-03 23:16] VITALS: BP 133/73; PULSE 103; RESP 21; TEMP 36.9; O2SAT 97
[2020-08-04] VITALS (7 sets, daily range): BP systolic 109–148; BP diastolic 62–80; PULSE 80–100; RESP 18–20; TEMP 35.8–36.8; O2SAT 95–97; BMI 42.8
--- NOTE | 2020-08-04 00:43 | P.HPIM_ITS ---
History of Present Illness Date of Service: 08/03/20 Chief Complaint: SOB This is a 49-year-old female with past medical history of asthma, CHF, depression, recurrent DVT, history of GI bleed, among others who presents to the hospital with complaints of shortness of breath, wheezing and cough. Patient reports her symptoms started about a day ago but she has not been feeling well for past 2 weeks. She has been feeling generalized weakness and just off for 2 weeks. She has no nausea or vomiting no fever or chills, patient is also complaining sharp back pain, and diarrhea for the past 1 week. She reports that her diarrhea is watery nonbloody, about 6 episode each day. Otherwise has no abdominal pain, no urinary symptoms and no lower extremity edema. All other review of systems negative except as mentioned above on arrival patient hemodynamically stable with no significant abnormal vitals satting 98% on room air labs ar significant for normal WBC count, INR of 2.4, chest x-ray negative for pneumonia Patient will be admitted for asthma exacerbation Past medical history: CHF, anxiety, asthma, depression, recurrent DVT, GI bleed, herniated disc L4 and L5, IBD, OCD Past surgical history: Partial hysterectomy, adenoidectomy, tonsillectomy, breast reduction Family history: No significant family history Social history: Comes from home, former smoker no longer smokes, no history of alcohol or illicit drug use Review of Systems Review of Systems: Yes all other systems are reviewed and are negative [facility] Medical History Anxiety Asthma Depression DVT (deep venous thrombosis) Hypertension Social History Household Members: Family Housing: House Do you presently have visiting nurse or other home services: No Alcohol intake: never Smoking Status: Never smoker Smoked in Last 30 Days: No Second Hand Smoke Exposure: No Use of substances other than those prescribed or required for medical reasons: No Currently Displaying Signs/Symptoms of Drug Intoxication Withdrawal: No Any prior treatment program specific to substance use: No Have you been hit, kicked, punched, or otherwise hurt by someone within the past year? If so, by whom?: No Do you feel safe in your current relationship?: No Is there a partner from a previous relationship who is making you feel unsafe now?: No Are you made to feel afraid or neglected: No Advance Directives: No Advance Directives Information Provided: Yes Do you have thoughts of harming others: None Recently lost weight without trying: No Meds Allergies Allergy/AdvReac Type Severity Reaction Status Date / Time dexamethasone [From DECADRON] Allergy Severe HIVES Verified 08/03/20 18:35 oxycodone [From PERCOCET] Allergy Severe HIVES Verified 08/03/20 18:35 azithromycin Allergy Intermediate ITCHING Verified 08/03/20 18:35 [From ZITHROMAX Z-XANDER] acetaminophen [Percocet] Allergy Unknown Unknown Verified 08/03/20 18:35 amoxicillin [AMOXICILLIN] Allergy Unknown UNKNOWN, Verified 08/03/20 18:35 hives, swelling budesonide [From SYMBICORT] Allergy Unknown UNKNOWN Verified 08/03/20 18:35 cefpodoxime [From VANTIN] Allergy Unknown UNKNOWN Verified 08/03/20 18:35 cefuroxime [From CEFTIN] Allergy Unknown UNKNOWN Verified 08/03/20 18:35 Cephalosporins Allergy Unknown UNKNOWN Verified 08/03/20 18:35 [CEPHALOSPORINS] ciprofloxacin [From CIPRO] Allergy Unknown UNKNOWN Verified 08/03/20 18:35 diazepam [DIAZEPAM] Allergy Unknown ITCHING Verified 08/03/20 18:35 diphtheria,pertussis Allergy Unknown Unknown Verified 08/03/20 18:35 (acellular),te [Adacel(Tdap Adolesn/Adult)(PF)] erythromycin base Allergy Unknown UNKNOWN Verified 08/03/20 18:35 [ERYTHROMYCIN BASE] fluticasone [Advair Diskus] Allergy Unknown Unknown Verified 08/03/20 18:35 formoterol [From SYMBICORT] Allergy Unknown UNKNOWN Verified 08/03/20 18:35 hydrocodone [From VICODIN] Allergy Unknown unknown Verified 08/03/20 18:35 Iodinated Contrast Media Allergy Unknown UNKNOWN Verified 08/03/20 18:35 [CONTRAST, IV] levofloxacin [From LEVAQUIN] Allergy Unknown UNKNOWN Verified 08/03/20 18:35 penicillin G Allergy Unknown Unknown Verified 08/03/20 18:35 penicillin V Allergy Unknown Unknown Verified 08/03/20 18:35 Penicillins [PENICILLINS] Allergy Unknown UNKNOWN Verified 08/03/20 18:35 salmeterol [Advair Diskus] Allergy Unknown Unknown Verified 08/03/20 18:35 sertraline [From ZOLOFT] Allergy Unknown SUICIDAL Verified 08/03/20 18:35 Sulfa (Sulfonamide Allergy Unknown hives Verified 08/03/20 18:35 Antibiotics) tetanus and diphtheria Allergy Unknown UNKNOWN Verified 08/03/20 18:35 toxoids [TETANUS & DIPHTHERIA TOXOIDS] Vantin Allergy Unknown Unknown Verified 08/03/20 18:35 ketorolac [From TORADOL] AdvReac Mild ITCHING Verified 08/03/20 18:35 Ceftin Allergy Unknown Unknown Uncoded 07/20/20 20:23 IV dye Allergy Unknown Unknown Uncoded 07/20/20 20:23 Symbicort Allergy Unknown Unknown Uncoded 07/20/20 20:23 Tetanus Allergy Unknown Unknown Uncoded 07/20/20 20:23 Erythromycin Allergy Unknown Uncoded 07/20/20 20:23 Home Medications Medication Instructions Recorded Confirmed Type diltiazem HCl 180 mg PO DAILY 08/03/20 08/03/20 History fluoxetine 60 mg PO BEDTIME 08/03/20 08/03/20 History flnnlbszedd-aunktofvk-jragrpoy 1 inh INHALATION QID PRN 08/03/20 08/03/20 History [Trelegy Ellipta] hydroxyzine HCl 50 mg PO BEDTIME PRN 08/03/20 08/03/20 History montelukast 10 mg PO BEDTIME 08/03/20 08/03/20 History omeprazole 40 mg PO BEDTIME 08/03/20 08/03/20 History risperidone 0.25 mg PO BEDTIME 08/03/20 08/03/20 History topiramate 50 mg PO BEDTIME 08/03/20 08/03/20 History trazodone 100 mg PO BEDTIME 08/03/20 08/03/20 History warfarin 5 mg PO 2XW 08/03/20 08/03/20 History warfarin 15 mg PO 5XW 08/03/20 08/03/20 History Physical Exam Vital Signs and Narrative: Vital Signs: Last Vital Signs Temp 98.5 F 08/03/20 23:16 Pulse 103 H 08/03/20 23:16 Resp 21 H 08/03/20 23:16 BP 133/73 08/03/20 23:16 Pulse Ox 97 08/03/20 23:16 Body Mass Index 42.3 Const: General: cooperative and no acute distress Orientation/consciousness: patient oriented x3 Eyes: General: appearance normal, both eyes and all related structures Pupils: Equal, round and reactive pupils present Resp: Other: wheezing, coughing, tachypneic Auscultation: wheezes Cardio: Rate: regular rate Rhythm: regular rhythm GI: Palpation (GI): Soft to palpation Auscultation: normal bowel sounds Skin: General skin exam: no rashes or lesions noted Neuro: General: patient oriented x3 Cranial nerves: Yes Equal, round and reactive pupils present Cognition (Neuro): normal cognition Extrem: General: Yes normal to inspection and Yes no pedal edema Results Labs Labs: Laboratory Tests 08/03/20 08/03/20 08/03/20 19:52 19:52 19:52 WBC 5.8 RBC 3.84 L Hgb 10.8 L Hct 32.9 L MCV 85.7 MCH 28.1 MCHC 32.8 RDW 14.8 Plt Count 236 MPV 12.1 Immature Gran % (Auto) 0.2 Neut % (Auto) 57.9 Lymph % (Auto) 32.1 [place] % (Auto) 8.1 Eos % (Auto) 1.2 Baso % (Auto) 0.5 Lymph # (Auto) 1.9 [place] # (Auto) 0.5 Eos # (Auto) 0.1 Baso # (Auto) 0.0 Abs Immat Gran (auto) 0.01 Absolute Neuts (auto) 3.4 Absolute Nucleated RBC 0.000 Nucleated RBC % (auto) 0.0 PT 28.9 H D INR 2.4 H APTT 92.7 H* Sodium 138 Potassium 3.9 Chloride 107 Carbon Dioxide 21 L Anion Gap 14 BUN 12 D Creatinine 0.81 Estim Creat Clear Calc 87.4 Estimated GFR > 60 Random Glucose 99 Calcium 9.2 Total Bilirubin 0.3 AST 19 ALT 29 Alkaline Phosphatase 89 Troponin I High Sens B-Natriuretic Peptide Total Protein 6.3 L Albumin 4.2 08/03/20 19:52 WBC RBC Hgb Hct MCV MCH MCHC RDW Plt Count MPV Immature Gran % (Auto) Neut % (Auto) Lymph % (Auto) [place] % (Auto) Eos % (Auto) Baso % (Auto) Lymph # (Auto) [place] # (Auto) Eos # (Auto) Baso # (Auto) Abs Immat Gran (auto) Absolute Neuts (auto) Absolute Nucleated RBC Nucleated RBC % (auto) PT INR APTT Sodium Potassium Chloride Carbon Dioxide Anion Gap BUN Creatinine Estim Creat Clear Calc Estimated GFR Random Glucose Calcium Total Bilirubin AST ALT Alkaline Phosphatase Troponin I High Sens < 3.5 B-Natriuretic Peptide < 10 Total Protein Albumin ECG Interpretation: Normal sinus rhythm Anterolateral infarct (cited on or before 03-MAY-2019) Abnormal ECG When compared with ECG of 20-JUL-2020 20:08, Questionable change in initial forces of Lateral leads Imaging Chest x-ray: Radiologist's impression: chest x-ray Assessment and Plan (1) Asthma with exacerbation: Status: Acute (2) Hypertension: Status: Acute (3) CHF (congestive heart failure): Status: Acute (4) Depression: Status: Acute (5) DVT (deep venous thrombosis): Status: Acute This is a 49-year-old female with past medical history of asthma exacerbation and multiple admissions for the same and intubations in the past who presents to the hospital with shortness of breath, wheezing, and cough. Patient will be admitted for management of asthma exacerbation # asthma exacerbation - wheezing, cough, dyspnea, no hypoxia - will start her on DuoNeb q.i.d. and Ventolin p.r.n. - Solu-Medrol 40 IV t.i.d. - patient was also recently treated for bronchitis with doxycycline- will continue that to complete course # diarrhea - patient with recent antibiotic use - no leukocytosis, no evidence of acute infection - will order C diff to rule out # history of recurrent DVTs - on Coumadin - PT INR pending - will get stat PT INR, will continue warfarin based on therapeutic level # history of hypertension - continue Cardizem # history of CHF - not in exacerbation - continue Lasix # mood disorder - continue risperidone, Atarax trazodone Dvt ppx: coumadin date of admission 08/04/2020
[2020-08-04 00:49] LABS: SARS COV2 PCR INHOUSE NEGATIVE (Negative)
[2020-08-04] MEDS: FLUoxetine HCl 20 MG CAPSULE 60 MG PO ×2 (02:34→21:18)
[2020-08-04] MEDS: Montelukast Sodium 10 MG TABLET PO ×2 (02:34→21:19)
[2020-08-04] MEDS: Omeprazole 40 MG CAPSULE.DR PO ×2 (02:34→21:18)
[2020-08-04] MEDS: risperiDONE 0.25 MG TABLET PO ×2 (02:35→22:44)
[2020-08-04] MEDS: Morphine Sulfate 2 MG/ML CARTRIDGE IVPUSH ×5 (02:35→21:18)
[2020-08-04] MEDS: 0.9 % Sodium Chloride Flush 3 ML SYRINGE IVFLUSH ×3 (02:35→16:00)
[2020-08-04] MEDS: traZODone HCL 100 MG TABLET PO ×2 (02:35→21:19)
[2020-08-04] MEDS: Albuterol/Iprat 2.5/0.5MG 3 ML AMPUL.NEB INHALE ×4 (08:16→19:59)
--- NOTE | 2020-08-04 08:49 | P.CDIC_ITS ---
CDI Concurrent Query Service Date: 08/05/20 Documentation Clarification: Please clarify if you are treating a proba ble/suspected/likely or confirmed: Chronic diastolic and/or systolic Congestive heart failure Please specify if known or other Provider Response: Other Other Diagnosis: Crh[place] diastolic heart failure PLEASE DO NOT DELETE/MODIFY EXISTING CONTENT Additional information is needed in order to code to the highest accuracy and appropriate Severity of Illness (SOI). Please clarify the information noted below in your progress notes and discharge summary. Risk Factors/Clinical Indicators/Treatments History of CHF not in exacerbation continue Lasix BNP <10 negative for pitting edema of low extremities. CDS: Marni Mcknight CCS, CDIS Contact Number: [phone] Please Review the information above and exercise your independent professional judgment in responding to the query. If you concur, pleas document in the PROGRESS NOTES and DISCHARGE SUMMARY. If you do not agree with the query, please document in the query above. THIS QUERY IS PART OF THE PERMANENT MEDICAL RECORD
--- NOTE | 2020-08-04 08:50 | P.CDIC_ITS ---
CDI Concurrent Query Service Date: 08/05/20 Documentation Clarification: Please clarify if you are treating a proba ble/suspected/likely or confirmed: Morbid obesity Please specify if known Provider Response: Morbid Obesity PLEASE DO NOT DELETE/MODIFY EXISTING CONTENT Additional information is needed in order to code to the highest accuracy and appropriate Severity of Illness (SOI). Please clarify the information noted below in your progress notes and discharge summary. Risk Factors/Clinical Indicators/Treatments Body mass index: 42.8 Assessment notes extreme obesity/Obesity class III CDS: Marni Mcknight CCS, CDIS Contact Number: [phone] Please Review the information above and exercise your independent professional judgment in responding to the query. If you concur, pleas document in the PROGRESS NOTES and DISCHARGE SUMMARY. If you do not agree with the query, please document in the query above. THIS QUERY IS PART OF THE PERMANENT MEDICAL RECORD
[2020-08-04 10:28] LABS: INTERNATIONAL NORM RATIO 3.3 (0.9-1.1)
[2020-08-04] MEDS: dilTIAZem HCL CD 180 MG CAP.ER.24H PO (10:57)
--- NOTE | 2020-08-04 13:21 | MHC.CM.PN ---
nurse tree care foreman note electronic medical record reviewed along with patient and explained the role of the nurse care manger in the in the transition from the hospital to home, she reported that she lives with her family , she is independent in all her adls and mobility, she reported to me that she was recently hospitalized for pneumonioa , and her asthma has worsen since then. patient atg this time has no vna no dme services , discharge plan home with n services patient to follow up post hospital discharge pulmonary physician follow up transportation family
[2020-08-04] MEDS: diphenhydrAMINE HCL 25 MG TABLET PO ×2 (13:39→22:44)
[2020-08-04] MEDS: Warfarin Sodium 7.5 MG TABLET 15 MG PO (16:23)
[2020-08-04] MEDS: Acetaminophen 325 MG TABLET 650 MG PO (16:23)
[2020-08-04] MEDS: LORazepam 1 MG TABLET PO (19:48)
[2020-08-04] MEDS: hydrOXYzine HCL 25 MG TABLET 50 MG PO (21:18)
[2020-08-05] VITALS (9 sets, daily range): BP systolic 114–142; BP diastolic 59–70; PULSE 82–94; RESP 16–19; TEMP 36.1–36.6; O2SAT 96–97
[2020-08-05] MEDS: 0.9 % Sodium Chloride Flush 3 ML SYRINGE IVFLUSH ×4 (00:47→22:20)
[2020-08-05] MEDS: Morphine Sulfate 2 MG/ML CARTRIDGE IVPUSH ×2 (01:06→07:59)
[2020-08-05] MEDS: diphenhydrAMINE HCL 50 MG/ML VIAL 25 MG IVPUSH ×2 (01:20→19:51)
[2020-08-05] MEDS: dilTIAZem HCL CD 180 MG CAP.ER.24H PO (07:52)
--- NOTE | 2020-08-05 10:05 | P.DS_ITS ---
DS: Providers Provider Date of admission: 08/04/20 00:04 Date of discharge and Date of Service: 08/06/20 Primary care physician: Vel Martinez MD DS: Diagnosis Discharge Diagnosis (1) Asthma with exacerbation: Status: Acute (2) Hypertension: Status: Acute (3) CHF (congestive heart failure): Status: Acute (4) Depression: Status: Acute (5) DVT (deep venous thrombosis): Status: Acute (6) Morbid obesity: Status: Acute DS: Summary Hospital Course Hospital Course: 49-year-old female with history of asthma require frequent hospitalization will presented yet again with shortness of breath as detailed in the history of present illness. She was admitted for exacerbation of asthma and was initiated on IV steroid bronchodilators by nebulizers. Hospital course: During hospitalization patient was treated with IV Solu- Medrol, bronchodilators by nebulizer. Her respiratory status has been stable she is not hypoxic her lung exam is clear. She will be discharged home with prednisone taper and to continue use of her home inhalers and to follow-up with her primary care doctor and her cabinet maker Dr. Esteban. She is to continue her other medications including those for history of DVT (Coumadin) And to follow-up with Doctor as usual. She has an Istat machine to check coumadin and report the result to PCP for further adjustment. I have advised her not to take coumadin today 08/06, check INR tomorrow and get direction from PCP as to what to do. Also advise to loose weight for morbid obesity as this maybe contributing to her overall health and specifically difficulty breathing Time Spent with Patient Time attestation: Total time spent providing and/or coordinating discharge services: Time spent: Greater than 30 minutes Physical Exam Vital Signs: Constitutional Awake and Alert, No apparent distress Neck Supple, No lymphadenopathy Cardiovascular RRR, No M/R/G, S1 S2, No S3 S4, No pedal edema Respiratory Lungs clear, No respiratory distress Gastrointestinal Non tender, Non-distended Skin No rash Neurological Alert & oriented x3 Psychological Appropriate affect DS: Data Data Completed and Pending Labs on day of discharge: Labs from last 24 hours 08/04/20 08/04/20 09:55 09:55 PT 40.0 H D Cancelled INR 3.3 H Cancelled Discharge Plan Discharge Anticipated Discharge Date/Time: 08/06/20 12:40 Patient Disposition: Home, Self-Care Referrals: Vel Martinez MD [Primary Care Provider] - 1 Week (Please call and edward e a follow up appointment.) Discharge Medications: New morphine 15 mg Tablet 15 mg PO Q6H PRN (Reason: Pain, Severe (Pain Scale 7-10)) Qty: 8 RF: 0 prednisone 20 mg tablet 20 mg PO DAILY Qty: 4 RF: 0 Robitussin Cough-Chest Saad DM 5-100 mg/5 mL liquid 10 ml PO Q4-8H PRN (Reason: cough) Qty: 118 RF: 0 Continued diltiazem HCl 180 mg capsule,extended release 24hr 180 mg PO DAILY RF: 0 warfarin 10 mg tablet 15 mg PO 5XW RF: 0 risperidone 0.25 mg tablet 0.25 mg PO BEDTIME RF: 0 omeprazole 40 mg capsule,delayed release(DR/EC) 40 mg PO BEDTIME RF: 0 trazodone 100 mg tablet 100 mg PO BEDTIME RF: 0 warfarin 5 mg Tablet 5 mg PO 2XW RF: 0 montelukast 10 mg tablet 10 mg PO BEDTIME RF: 0 hydroxyzine HCl 25 mg tablet 50 mg PO BEDTIME PRN (Reason: Anxiety) RF: 0 topiramate 50 mg tablet 50 mg PO BEDTIME RF: 0 fluoxetine 60 mg tablet 60 mg PO BEDTIME RF: 0 Trelegy Ellipta 100-62.5-25 mcg blister with device 1 inh inhalation QID PRN (Reason: Shortness Of Breath) RF: 0 Discharge Orders: Discharge Order (Routine); Ordered 08/06/20 Ordered By: Rodolfo Fairchild Diet: advance to your usual diet Activity on Discharge: As tolerated Print Language: Tristanian Visit Report Forms: Patient Portal Discharge page Care Plan Goals: you presented with asthma exacerbation and expect to have few flare and rehospitilization Health Concerns: Recurrent hospitalization for asthma Plan of Treatment: Take Prednisone as directed, continuing using inhalers, follow up with Dr. Esteban and your Primary care Doctor.. Call for appointment --Your INR was 7 on 08/05/20 and you were giving Vitamin K and no coumadin. Today 08/06/20 your INR is 4. Take no coumadin today and check INR tomorrow and call your Doctor for further direction. INR is checked at home
[2020-08-05 10:52] LABS: Prothrombin Time 81.2 SEC (10.8-13.0)
[2020-08-05 10:55] LABS: INTERNATIONAL NORM RATIO 6.7 (0.9-1.1)
[2020-08-05] MEDS: Albuterol/Iprat 2.5/0.5MG 3 ML AMPUL.NEB INHALE ×2 (11:45→20:19)
--- NOTE | 2020-08-05 15:12 | HO.PM.IMPN ---
Subjective Subjective Date of Service: 08/05/20 Interval History: Seen in f/u for asthma exacerbation. Better Review of Systems Resp no sob, cv no chest pain gen no fever Physical Exam Vital Signs: Vital Signs: Vital Signs Temp Pulse Resp BP Pulse Ox 08/05/20 07:52 82 114/64 08/05/20 07:50 97.0 F 82 16 114/64 97 08/05/20 03:26 97.6 F 94 19 136/69 96 08/05/20 01:30 94 18 142/70 H 08/05/20 01:05 89 18 114/68 08/04/20 23:16 97.6 F 91 19 109/66 97 08/04/20 19:14 98.3 F 95 19 136/62 96 08/04/20 15:34 97.7 F 100 18 144/77 H 97 Body Mass Index 42.8 Constitutional Awake and Alert, No apparent distress Neck Supple, No lymphadenopathy Cardiovascular RRR, No M/R/G, S1 S2, No S3 S4, No pedal edema Respiratory Lungs clear, No respiratory distress Gastrointestinal Non tender, Non-distended Skin No rash Neurological Alert & oriented x3 Psychological Appropriate affect Objective Data Current Medications Generic Name Dose Route Start Last Admin Trade Name Freq PRN Reason Stop Dose Admin Acetaminophen 650 mg 08/04/20 02:07 08/04/20 16:23 Acetaminophen 325 Mg Tablet PO 650 mg Q6H PRN Administration Pain, Mild (Pain Scale 1-3) Albuterol/Ipratropium 3 ml 08/04/20 08:00 08/05/20 11:45 Albuterol/Iprat 2.5/0.5mg 3 Ml Ampul.Neb INHALE 3 ml RQ4H WHILE AWAKE ONEIDA Administration Albuterol/Ipratropium 3 ml 08/04/20 06:21 Albuterol/Iprat 2.5/0.5mg 3 Ml Ampul.Neb INHALE RQ4H PRN Shortness of Breath/Wheezing Diltiazem HCl 180 mg 08/04/20 09:00 08/05/20 07:52 Diltiazem Hcl Cd 180 Mg Cap.Er.24h PO 180 mg DAILY ONEIDA Administration Protocol Diphenhydramine HCl 25 mg 08/04/20 13:16 08/04/20 22:44 Diphenhydramine Hcl 25 Mg Tablet PO 25 mg Q4H PRN Administration itchyness Docusate Sodium 100 mg 08/04/20 02:07 Docusate Sodium 100 Mg Capsule PO DAILY PRN Constipation Fluoxetine HCl 60 mg 08/04/20 02:07 08/04/20 21:18 Fluoxetine Hcl 20 Mg Capsule PO 60 mg BEDTIME ONEIDA Administration Hydroxyzine HCl 50 mg 08/04/20 02:07 08/04/20 21:18 Hydroxyzine Hcl 25 Mg Tablet PO 50 mg BEDTIME PRN Administration Anxiety Lorazepam 1 mg 08/04/20 17:01 08/04/20 19:48 Lorazepam 1 Mg Tablet PO 1 mg Q6H PRN Administration Anxiety Montelukast Sodium 10 mg 08/04/20 02:07 08/04/20 21:19 Montelukast Sodium 10 Mg Tablet PO 10 mg BEDTIME ONE[place] Administration Omeprazole 40 mg 08/04/20 02:07 08/04/20 21:18 Omeprazole 40 Mg Capsule.Dr PO 40 mg BEDTIME ONEIDA Administration Ondansetron HCl 4 mg 08/04/20 02:07 Ondansetron Hcl 4 Mg/2 Ml Vial IVPUSH Q8H PRN Nausea and Vomiting Oxycodone HCl 5 mg 08/05/20 13:54 Oxycodone Hcl Immed Release 5 Mg Tablet PO Q6H PRN Pain, Severe (Pain Scale 7-10) Risperidone 0.25 mg 08/04/20 02:07 08/04/20 22:44 Risperidone 0.25 Mg Tablet PO 0.25 mg BEDTIME ONE[place] Administration Sodium Chloride 3 ml 08/04/20 02:07 08/05/20 07:53 0.9 % Sodium Chloride Flush 3 Ml Syringe IVFLUSH 3 ml QSHIFT ONE[place] Administration Trazodone HCl 100 mg 08/04/20 02:07 08/04/20 21:19 Trazodone Hcl 100 Mg Tablet PO 100 mg BEDTIME ONE[place] Administration Warfarin Sodium 15 mg 08/04/20 16:00 08/04/20 16:23 Warfarin Sodium 7.5 Mg Tablet PO 15 mg [id number] ONEIDA Administration Warfarin Sodium 5 mg 08/05/20 16:00 Warfarin Sodium 5 Mg Tablet PO SuSa [facility] Labs CBC & Chem 7: 08/03/20 19:52 08/03/20 19:52 Labs: Laboratory Tests 08/05/20 10:25 INR 6.7 H* D Assessment and Plan (1) Asthma with exacerbation: Status: Acute (2) Depression: Status: Acute (3) CHF (congestive heart failure): Status: Acute (4) DVT (deep venous thrombosis): Status: Acute (5) Hypertension: Status: Acute (6) Morbid obesity: Status: Acute Assessment and Plan: 49-year-old female with past medical history of asthma exacerbation and multiple admissions for the same and intubations in the past who presents to the hospital with shortness of breath, wheezing, and cough. Patient will be admitted for management of asthma exacerbation # asthma exacerbation - wheezing, cough, dyspnea, no hypoxia - will start her on DuoNeb q.i.d. and Ventolin p.r.n. - Solu-Medrol 40 IV t.i.df to prednisone at discharge - patient was also recently treated for bronchitis with doxycycline- will continue that to complete course # diarrhea - patient with recent antibiotic use - no leukocytosis, no evidence of acute infection - no further diarrhea reported # history of recurrent DVTs - on Coumadin - PT INR is high, hold coumadin and follow level # history of hypertension - continue Cardizem # history of CHF - not in exacerbation - continue Lasix # mood disorder - continue risperidone, Atarax trazodone Dvt ppx inr is high possibly discharge later today
[2020-08-05 15:46] LABS: Prothrombin Time 86.8 SEC (10.8-13.0)
[2020-08-05 15:50] LABS: INTERNATIONAL NORM RATIO 7.2 (0.9-1.1)
[2020-08-05] MEDS: Phytonadione (Vit K1) Oral 10 MG/ML AMPUL 2.5 MG PO (16:10)
[2020-08-05] MEDS: Morphine Sulfate Immed Release 15 MG TABLET PO ×2 (16:49→22:53)
[2020-08-05] MEDS: risperiDONE 0.25 MG TABLET PO (20:49)
[2020-08-05] MEDS: FLUoxetine HCl 20 MG CAPSULE 60 MG PO (20:49)
[2020-08-05] MEDS: Omeprazole 40 MG CAPSULE.DR PO (20:49)
[2020-08-05] MEDS: Montelukast Sodium 10 MG TABLET PO (20:49)
[2020-08-05] MEDS: traZODone HCL 100 MG TABLET PO (20:49)
[2020-08-06] MEDS: Albuterol/Iprat 2.5/0.5MG 3 ML AMPUL.NEB INHALE ×2 (07:10→11:39)
[2020-08-06 07:48] VITALS: BP 117/67; PULSE 72; RESP 17; TEMP 36.6; O2SAT 96
[2020-08-06 08:43] VITALS: BP 117/67; PULSE 72
[2020-08-06] MEDS: 0.9 % Sodium Chloride Flush 3 ML SYRINGE IVFLUSH (08:43)
[2020-08-06] MEDS: dilTIAZem HCL CD 180 MG CAP.ER.24H PO (08:43)
[2020-08-06] MEDS: Morphine Sulfate Immed Release 15 MG TABLET PO ×2 (08:50→14:38)
[2020-08-06 09:38] LABS: Prothrombin Time 47.7 SEC (10.8-13.0)
[2020-08-06 12:00] VITALS: BP 131/62; PULSE 91; RESP 20; TEMP 37; O2SAT 96
--- NOTE | 2020-08-06 12:40 | MHC.CM.PN ---
Pt cleared for DC today, home with no services
--- NOTE | 2020-08-06 13:25 | MHC.CM.PN ---
Pt to DC today, home with no services. Pt to self arrange transportation at DC
== END 2020-08-06 15:00 | disposition home or self-care (01) | DRG 202 ==
LOC: HO.ED 08-04 01:07 → HO.S3 08-04 01:20
PROVIDERS: Physician Assistant; Admitting Provider Internal Medicine; Emergency Provider Emergency Medicine; PCP Family Medicine; Visit Provider Internal Medicine
DX: J45.901 Unspecified asthma with (acute) exacerbation (principal); I50.32 Chronic diastolic (congestive) heart failure; Z68.41 Body mass index [BMI] 40.0-44.9, adult; F41.9 Anxiety disorder, unspecified; F32.9 Major depressive disorder, single episode, unspecified; I11.0 Hypertensive heart disease with heart failure; E66.01 Morbid (severe) obesity due to excess calories; Z20.828 Contact with and (suspected) exposure to other viral communicable diseases; Z86.718 Personal history of other venous thrombosis and embolism; Z88.0 Allergy status to penicillin; Z88.2 Allergy status to sulfonamides; Z88.5 Allergy status to narcotic agent; Z79.01 Long term (current) use of anticoagulants; Z79.899 Other long term (current) drug therapy
CPT/HCPCS: 36415; 71045; 80053; 83880; 84484; 85025; 85610; 85730; 87635; 93005; 96365; 96366; 96372; 96375; 99285; J1200; J2270; J2920; J2930; J3430; J3475; Q0163

== ENCOUNTER 2020-08-23 15:45 | Emergency (ER) | payer MEDICARE, MEDICAID, SELFPAY ==
[2020-08-23 16:33] VITALS: BP 121/70; PULSE 123; RESP 22; TEMP 36.9; O2SAT 98; BMI 45.6
--- NOTE | 2020-08-23 16:37 | XR_ITS ---
EXAMINATION: XR CHEST CLINICAL INFORMATION: Shortness of breath COMPARISON: 08/03/2020 TECHNIQUE: Frontal view of the chest was obtained. FINDINGS: Since the previous exam there has been significant improvement in appearances better expanded lungs. The heart and pulmonary vessels appear normal. No infiltrates, effusions or lung masses are seen. Again noted is a left chest wall port with its tip at the SVC/RA junction. XR/XR chest 1V IMPRESSION: No acute intrathoracic disease.
[2020-08-23] MEDS: Albuterol Sulfate (0.083%) 2.5 MG/3 ML VIAL.NEB 7.5 MG INHALE (16:59)
--- NOTE | 2020-08-23 16:59 | ED_ITS ---
HPI - Asthma General Chief Complaint: Asthma Stated Complaint: Asthma Time Seen by Provider: 08/23/20 16:27 Source: patient Mode of arrival: ambulatory Limitations: no limitations History of Present Illness HPI Narrative: patient has history of asthma and tracheomalacia been here frequently for asthma attack anxiety mostly wheezing with question of symptoms secondary to tracheomalacia this time she comes here for increased shortness of breath for last 2 days very anxious on arrival patient very anxious on arrival making sounds from her throat asking for ketamine complaint: asthma attack Onset (ago): day(s) (2) Severity: moderate Context: none known Associated symptoms: none Asthma History: adult onset and history of frequent attacks Related Data Current Asthma Therapy: inhaled bronchodilator Home Medications Medication Instructions Recorded Confirmed Trelegy Ellipta 1 inh INHALATION QID PRN 08/03/20 08/03/20 diltiazem HCl 180 mg PO DAILY 08/03/20 08/03/20 fluoxetine 60 mg PO BEDTIME 08/03/20 08/03/20 hydroxyzine HCl 50 mg PO BEDTIME PRN 08/03/20 08/03/20 montelukast 10 mg PO BEDTIME 08/03/20 08/03/20 omeprazole 40 mg PO BEDTIME 08/03/20 08/03/20 risperidone 0.25 mg PO BEDTIME 08/03/20 08/03/20 topiramate 50 mg PO BEDTIME 08/03/20 08/03/20 trazodone 100 mg PO BEDTIME 08/03/20 08/03/20 warfarin 5 mg PO 2XW 08/03/20 08/03/20 warfarin 15 mg PO 5XW 08/03/20 08/03/20 Previous Rx's Medication Instructions Recorded dextromethorphan-guaifenesin 10 ml PO Q4-8H PRN #118 ml 08/06/20 [Robitussin Cough-Chest Saad DM] morphine 15 mg PO Q6H PRN #8 tab 08/06/20 prednisone 20 mg PO DAILY #4 tab 08/06/20 Allergies Allergy/AdvReac Type Severity Reaction Status Date / Time dexamethasone [From DECADRON] Allergy Severe HIVES Verified 08/03/20 18:35 oxycodone [From PERCOCET] Allergy Severe HIVES Verified 08/03/20 18:35 azithromycin Allergy Intermediate ITCHING Verified 08/03/20 18:35 [From ZITHROMAX Z-XANDER] acetaminophen [Percocet] Allergy Unknown Unknown Verified 08/03/20 18:35 amoxicillin [AMOXICILLIN] Allergy Unknown UNKNOWN, Verified 08/03/20 18:35 hives, swelling budesonide [From SYMBICORT] Allergy Unknown UNKNOWN Verified 08/03/20 18:35 cefpodoxime [From VANTIN] Allergy Unknown UNKNOWN Verified 08/03/20 18:35 cefuroxime [From CEFTIN] Allergy Unknown UNKNOWN Verified 08/03/20 18:35 Cephalosporins Allergy Unknown UNKNOWN Verified 08/03/20 18:35 [CEPHALOSPORINS] ciprofloxacin [From CIPRO] Allergy Unknown UNKNOWN Verified 08/03/20 18:35 diazepam [DIAZEPAM] Allergy Unknown ITCHING Verified 08/03/20 18:35 diphtheria,pertussis Allergy Unknown Unknown Verified 08/03/20 18:35 (acellular),te [Adacel(Tdap Adolesn/Adult)(PF)] erythromycin base Allergy Unknown UNKNOWN Verified 08/03/20 18:35 [ERYTHROMYCIN BASE] fluticasone [Advair Diskus] Allergy Unknown Unknown Verified 08/03/20 18:35 formoterol [From SYMBICORT] Allergy Unknown UNKNOWN Verified 08/03/20 18:35 hydrocodone [From VICODIN] Allergy Unknown unknown Verified 08/03/20 18:35 Iodinated Contrast Media Allergy Unknown UNKNOWN Verified 08/03/20 18:35 [CONTRAST, IV] levofloxacin [From LEVAQUIN] Allergy Unknown UNKNOWN Verified 08/03/20 18:35 penicillin G Allergy Unknown Unknown Verified 08/03/20 18:35 penicillin V Allergy Unknown Unknown Verified 08/03/20 18:35 Penicillins [PENICILLINS] Allergy Unknown UNKNOWN Verified 08/03/20 18:35 salmeterol [Advair Diskus] Allergy Unknown Unknown Verified 08/03/20 18:35 sertraline [From ZOLOFT] Allergy Unknown SUICIDAL Verified 08/03/20 18:35 Sulfa (Sulfonamide Allergy Unknown hives Verified 08/03/20 18:35 Antibiotics) tetanus and diphtheria Allergy Unknown UNKNOWN Verified 08/03/20 18:35 toxoids [TETANUS & DIPHTHERIA TOXOIDS] Vantin Allergy Unknown Unknown Verified 08/03/20 18:35 ketorolac [From TORADOL] AdvReac Mild ITCHING Verified 08/03/20 18:35 Ceftin Allergy Unknown Unknown Uncoded 07/20/20 20:23 IV dye Allergy Unknown Unknown Uncoded 07/20/20 20:23 Symbicort Allergy Unknown Unknown Uncoded 07/20/20 20:23 Tetanus Allergy Unknown Unknown Uncoded 07/20/20 20:23 Erythromycin Allergy Unknown Uncoded 07/20/20 20:23 Review of Systems Review of Systems: REVIEW OF SYSTEMS: Pertinent positives and negatives are stated above in the history. GEN: no fevers, chills, fatigue HEENT: no nasal congestion, sore throat, ear pain NEURO: no headache, dizziness, focal weakness, anxiety+ PULM: dry cough, shortness of breath+ CV: no chest pain, palpitations, LE edema ABD: no abdominal pain, nausea, vomiting, diarrhea : no dysuria, urgency, frequency SKIN: no rash ROS otherwise negative x 10 [facility] Past Medical History Medical History Anxiety Asthma CHF (congestive heart failure) Depression DVT (deep venous thrombosis) Hypertension Morbid obesity Social History Social History Household Members: Family Housing: House Alcohol intake: never Smoking Status: Former smoker Smoked in Last 30 Days: No Second Hand Smoke Exposure: No Use of substances other than those prescribed or required for medical reasons: No Advance Directives: No Advance Directives Information Provided: Yes service: No Current occupational status: unemployed Physical Exam Vital Signs: Vital Signs: Vital Signs Temp Pulse Resp BP Pulse Ox 08/23/20 16:33 98.5 F 123 H 22 H 121/70 98 Body Mass Index 45.6 Appearance: Alert. Oriented X3. very anxious. Eyes: Pupils equal, round and reactive to light. ENT: Pharynx normal. Neck: Normal inspection. Neck supple. CVS: Normal heart rate and rhythm. Pulses normal. Respiratory: expiratory stridor from the throat when patient exhales, equal air entry both sides occasional rhonchi no rales Abdomen: Soft and nontender. Skin: Skin warm and dry. Normal skin color. Normal skin turgor. Extremities: No lower extremity edema. Good range of movement Neuro: Oriented X 3. No motor deficit. No sensory deficit. Course Course Course Narrative: patient feeling much better now saturating 94% very anxious asking for pain medications will give her morphine usual p.m. dose chest x-ray negative will discharge patient home MDM - Asthma Lab Data Result diagrams: 08/23/20 16:59 08/23/20 16:59 Labs: Lab Results 08/23/20 08/23/20 08/23/20 Range/Units 16:59 16:59 16:59 WBC 4.8 (4.8-10.8) X10*3/uL RBC 3.49 L (4.20-5.50) X10*6/uL Hgb 9.8 L (12.0-16.0) g/dl Hct 30.5 L (37-47) % MCV 87.4 (80-98) fL MCH 28.1 (27.0-33.0) pg MCHC 32.1 (31.0-35.0) g/dl RDW 15.1 (11.0-16.0) % Plt Count 212 (160-400) X10*3/uL MPV 11.8 (9.4-12.3) fL Immature Gran % (Auto) 0.4 (0.0-0.4) % Neut % (Auto) 63.3 (45-73) % Lymph % (Auto) 27.2 (20-40) % Baker % (Auto) 6.2 (2-11) % Eos % (Auto) 2.5 (0-4) % Baso % (Auto) 0.4 (0-2) % Lymph # (Auto) 1.3 (1.2-4.9) X10*3/uL Baker # (Auto) 0.3 (0.1-1.2) X10*3/uL Eos # (Auto) 0.1 (0.0-0.4) X10*3/uL Baso # (Auto) 0.0 (0.0-0.2) X10*3/uL Abs Immat Gran (auto) 0.02 (0.00-0.03) X10*3/uL Absolute Neuts (auto) 3.0 (2.0-8.3) X10*3/uL Absolute Nucleated RBC 0.000 (0.0-0.012) X10*3/uL Nucleated RBC % (auto) 0.0 (0.0-0.2) /100WBC Sodium 138 (135-145) mmol/L Potassium 3.8 (3.3-5.1) mmol/l Chloride 108 (96-108) mmol/L Carbon Dioxide 22 (22-29) mmol/L Anion Gap 12 (12-20) BUN 12 (9-16) mg/dL Creatinine 0.84 (0.5-1.4) mg/dL Estim Creat Clear Calc 88.1 Estimated GFR > 60 Random Glucose 253 H D (60-115) mg/dL Calcium 8.1 L (8.4-10.2) mg/dL B-Natriuretic Peptide 77 (<100) pg/mL Discharge Plan Discharge Prescriptions: No Action diltiazem HCl 180 mg capsule,extended release 24hr 180 mg PO DAILY RF: 0 warfarin 10 mg tablet 15 mg PO 5XW RF: 0 risperidone 0.25 mg tablet 0.25 mg PO BEDTIME RF: 0 omeprazole 40 mg capsule,delayed release(DR/EC) 40 mg PO BEDTIME RF: 0 trazodone 100 mg tablet 100 mg PO BEDTIME RF: 0 warfarin 5 mg Tablet 5 mg PO 2XW RF: 0 montelukast 10 mg tablet 10 mg PO BEDTIME RF: 0 hydroxyzine HCl 25 mg tablet 50 mg PO BEDTIME PRN (Reason: Anxiety) RF: 0 topiramate 50 mg tablet 50 mg PO BEDTIME RF: 0 fluoxetine 60 mg tablet 60 mg PO BEDTIME RF: 0 Trelegy Ellipta 100-62.5-25 mcg blister with device 1 inh inhalation QID PRN (Reason: Shortness Of Breath) RF: 0 morphine 15 mg Tablet 15 mg PO Q6H PRN (Reason: Pain, Severe (Pain Scale 7-10)) Qty: 8 RF: 0 prednisone 20 mg tablet 20 mg PO DAILY Qty: 4 RF: 0 Robitussin Cough-Chest Saad DM 5-100 mg/5 mL liquid 10 ml PO Q4-8H PRN (Reason: cough) Qty: 118 RF: 0
[2020-08-23 17:04] LABS: MANUAL DIFF FLAG NO
[2020-08-23 17:05] LABS: Basophils Percent Auto 0.4 % (0-2); Eosinophils Absolute Auto 0.1 X10*3/uL (0.0-0.4); Eosinophils Percent Auto 2.5 % (0-4); Hematocrit 30.5 % (37-47); Hemoglobin 9.8 g/dl (12.0-16.0); Imm Gran Abs Auto 0.02 X10*3/uL (0.00-0.03); Imm Gran Pct Auto 0.4 % (0.0-0.4); Lymphocytes Absolute Auto 1.3 X10*3/uL (1.2-4.9); Lymphocytes Percent Auto 27.2 % (20-40); Mean Corpuscular HGB Conc 32.1 g/dl (31.0-35.0); Mean Corpuscular Hemoglobin 28.1 pg (27.0-33.0); Mean Corpuscular Volume 87.4 fL (80-98); Mean Platelet Volume 11.8 fL (9.4-12.3); Monocytes Absolute Auto 0.3 X10*3/uL (0.1-1.2); Monocytes Percent Auto 6.2 % (2-11); Neutrophils Percent Auto 63.3 % (45-73); Platelet Count 212 X10*3/uL (160-400); Red Blood Count 3.49 X10*6/uL (4.20-5.50); Red Cell Distribution Width 15.1 % (11.0-16.0); White Blood Count 4.8 X10*3/uL (4.8-10.8)
[2020-08-23] MEDS: LORazepam 2 MG/ML VIAL 1 MG IVPUSH (17:05)
[2020-08-23] MEDS: methylPREDNISolone Sod Succ/PF 125 MG/2 ML VIAL IVPUSH (17:06)
[2020-08-23] MEDS: Magnesium Sulfate/H2O 2 GM/50 ML PIGGYBACK IV (17:06)
[2020-08-23] MEDS: 0.9 % Sodium Chloride 1,000 ML 999 ML IVCONT (17:07)
[2020-08-23 17:37] LABS: B Type Natriuretic Peptide 77 pg/mL (<100)
[2020-08-23 17:39] LABS: Anion Gap 12 (12-20); Blood Urea Nitrogen 12 mg/dL (9-16); Calcium 8.1 mg/dL (8.4-10.2); Carbon Dioxide 22 mmol/L (22-29); Chloride 108 mmol/L (96-108); Creatinine Clr Calc Pharmacy 88.1; Estimated Glomerular Filt Rate > 60; Glucose Random 253 mg/dL (60-115); Potassium 3.8 mmol/l (3.3-5.1); Sodium 138 mmol/L (135-145)
[2020-08-23] MEDS: Morphine Sulfate 4 MG/ML CARTRIDGE IVPUSH (18:06)
[2020-08-23 18:08] VITALS: BP 140/102; PULSE 110; RESP 16; TEMP 36.9; O2SAT 99
--- NOTE | 2020-08-23 18:09 | PC.NURSE ---
pt initially arrives wheezing with shortness of breath. Accessed port, pt got nebulizer and slept. She requested ketamine, also morphine. MD aware. Pt states she takes morphine at home. She got one dose for chest pain, reports pain improved and is ready for discharge
== END 2020-08-23 18:49 | disposition home or self-care (01) ==
PROVIDERS: Emergency Provider Internal Medicine
DX: J45.909 Unspecified asthma, uncomplicated (principal); F41.9 Anxiety disorder, unspecified; F43.0 Acute stress reaction; Z79.899 Other long term (current) drug therapy; Z87.891 Personal history of nicotine dependence
CPT/HCPCS: 36415; 71045; 80048; 83880; 85025; 96365; 96375; 99284; J2060; J2270; J2930; J3475

== ENCOUNTER 2020-09-03 15:32 | Inpatient (IN) | payer MEDICARE, MEDICAID, SELFPAY ==
[2020-09-03 15:37] VITALS: BP 00/00; PULSE 115; RESP 55; TEMP 36.1; O2SAT 97; BMI 43.0
[2020-09-03] MEDS: Albuterol Sulfate (0.083%) 2.5 MG/3 ML VIAL.NEB 10 MG INHALE ×2 (17:28→22:00)
--- NOTE | 2020-09-03 17:39 | ED_ITS ---
HPI - Asthma General Chief Complaint: Asthma Stated Complaint: asthma flare-up Time Seen by Provider: 09/03/20 17:12 Source: patient Mode of arrival: ambulatory Limitations: no limitations History of Present Illness HPI Narrative: patient comes in complaining of shortness of breath for 2 days. Patient states she used 3 neb treatments prior to arrival with no relief. MD complaint: asthma attack and shortness of breath Related Data Home Medications Medication Instructions Recorded Confirmed Trelegy Ellipta 1 inh INHALATION QID PRN 08/03/20 08/03/20 diltiazem HCl 180 mg PO DAILY 08/03/20 08/03/20 fluoxetine 60 mg PO BEDTIME 08/03/20 08/03/20 hydroxyzine HCl 50 mg PO BEDTIME PRN 08/03/20 08/03/20 montelukast 10 mg PO BEDTIME 08/03/20 08/03/20 omeprazole 40 mg PO BEDTIME 08/03/20 08/03/20 risperidone 0.25 mg PO BEDTIME 08/03/20 08/03/20 topiramate 50 mg PO BEDTIME 08/03/20 08/03/20 trazodone 100 mg PO BEDTIME 08/03/20 08/03/20 warfarin 5 mg PO 2XW 08/03/20 08/03/20 warfarin 15 mg PO 5XW 08/03/20 08/03/20 Previous Rx's Medication Instructions Recorded dextromethorphan-guaifenesin 10 ml PO Q4-8H PRN #118 ml 08/06/20 [Robitussin Cough-Chest Saad DM] morphine 15 mg PO Q6H PRN #8 tab 08/06/20 prednisone 20 mg PO DAILY #4 tab 08/06/20 prednisone 40 mg PO DAILY #10 tab 08/23/20 Allergies Allergy/AdvReac Type Severity Reaction Status Date / Time dexamethasone [From DECADRON] Allergy Severe HIVES Verified 08/03/20 18:35 oxycodone [From PERCOCET] Allergy Severe HIVES Verified 08/03/20 18:35 azithromycin Allergy Intermediate ITCHING Verified 08/03/20 18:35 [From ZITHROMAX Z-XANDER] acetaminophen [Percocet] Allergy Unknown Unknown Verified 08/03/20 18:35 amoxicillin [AMOXICILLIN] Allergy Unknown UNKNOWN, Verified 08/03/20 18:35 hives, swelling budesonide [From SYMBICORT] Allergy Unknown UNKNOWN Verified 08/03/20 18:35 cefpodoxime [From VANTIN] Allergy Unknown UNKNOWN Verified 08/03/20 18:35 cefuroxime [From CEFTIN] Allergy Unknown UNKNOWN Verified 08/03/20 18:35 Cephalosporins Allergy Unknown UNKNOWN Verified 08/03/20 18:35 [CEPHALOSPORINS] ciprofloxacin [From CIPRO] Allergy Unknown UNKNOWN Verified 08/03/20 18:35 diazepam [DIAZEPAM] Allergy Unknown ITCHING Verified 08/03/20 18:35 diphtheria,pertussis Allergy Unknown Unknown Verified 08/03/20 18:35 (acellular),te [Adacel(Tdap Adolesn/Adult)(PF)] erythromycin base Allergy Unknown UNKNOWN Verified 08/03/20 18:35 [ERYTHROMYCIN BASE] fluticasone [Advair Diskus] Allergy Unknown Unknown Verified 08/03/20 18:35 formoterol [From SYMBICORT] Allergy Unknown UNKNOWN Verified 08/03/20 18:35 hydrocodone [From VICODIN] Allergy Unknown unknown Verified 08/03/20 18:35 Iodinated Contrast Media Allergy Unknown UNKNOWN Verified 08/03/20 18:35 [CONTRAST, IV] levofloxacin [From LEVAQUIN] Allergy Unknown UNKNOWN Verified 08/03/20 18:35 penicillin G Allergy Unknown Unknown Verified 08/03/20 18:35 penicillin V Allergy Unknown Unknown Verified 08/03/20 18:35 Penicillins [PENICILLINS] Allergy Unknown UNKNOWN Verified 08/03/20 18:35 salmeterol [Advair Diskus] Allergy Unknown Unknown Verified 08/03/20 18:35 sertraline [From ZOLOFT] Allergy Unknown SUICIDAL Verified 08/03/20 18:35 Sulfa (Sulfonamide Allergy Unknown hives Verified 08/03/20 18:35 Antibiotics) tetanus and diphtheria Allergy Unknown UNKNOWN Verified 08/03/20 18:35 toxoids [TETANUS & DIPHTHERIA TOXOIDS] Vantin Allergy Unknown Unknown Verified 08/03/20 18:35 ketorolac [From TORADOL] AdvReac Mild ITCHING Verified 08/03/20 18:35 Ceftin Allergy Unknown Unknown Uncoded 07/20/20 20:23 IV dye Allergy Unknown Unknown Uncoded 07/20/20 20:23 Symbicort Allergy Unknown Unknown Uncoded 07/20/20 20:23 Tetanus Allergy Unknown Unknown Uncoded 07/20/20 20:23 Erythromycin Allergy Unknown Uncoded 07/20/20 20:23 Review of Systems Review of Systems: Constitutional : No Weight loss, No Fever, No Chills, No Night Sweats, No Fatigue, No Malaise ENT/Mouth : No Hearing loss, No Ear Pain, No Nasal Congestion, No Sinus Pain, No Hoarseness, No sore throat, No Rhinorrhea, No Swallowing Difficulty Eyes: No Eye Pain, No Swelling, No Redness, No Foreign Body, No Discharge, No Vision Changes Cardiovascular : No Chest Pain, No SOB, No Dyspnea on Exertion, No Orthopnea, No Edema, No Palpitations Respiratory : Patient complaining of dyspnea, wheezing for 3 days. Gastrointestinal : No Nausea, No Vomiting, No Diarrhea, No Constipation, No abdominal Pain, No Hematochezia, No Melena Genitourinary : no irregular bleeding, No Dysuria, No Urinary Frequency, No Hematuria, No Urinary Incontinence, No Urgency, No Flank Pain, No Urinary Flow Changes, No Hesitancy Musculoskeletal : No joint pain, No Myalgias, No Joint Swelling Skin : No Skin Lesions, No rash Neuro : No Weakness, No Numbness, No Paresthesias, No Loss of Consciousness, No Dizziness, No Headache Psych : No Anxiety/Panic, No Depression, No SI/HI/AH/VH, No Social Issues, Heme/Lymph: No Bruising, No Bleeding,No Lymphadenopathy Endocrine : No Polyuria, No Polydipsia, No Temperature Intolerance [facility] Past Medical History Medical History Anxiety Asthma CHF (congestive heart failure) Depression DVT (deep venous thrombosis) Hypertension Morbid obesity Social History Social History Household Members: Family Housing: House Alcohol intake: unknown Smoking Status: Unknown if ever smoked Second Hand Smoke Exposure: No Use of substances other than those prescribed or required for medical reasons: Unknown Advance Directives: No Advance Directives Information Provided: No service: No Current occupational status: unemployed Physical Exam Vital Signs: Vital Signs: Last Vital Signs Temp 97 F 09/03/20 15:37 Pulse 108 H 09/03/20 18:16 Resp 26 H 09/03/20 18:16 BP 128/76 09/03/20 18:16 Pulse Ox 96 09/03/20 18:16 Body Mass Index 43.0 Appearance: Alert. Oriented X3. No acute distress. Very anxious. Eyes: Pupils equal, round and reactive to light. ENT: Pharynx normal. Neck: Normal inspection. Neck supple. No lymph nodes noted. No crepitus CVS: Normal heart rate and rhythm. Pulses normal. Normal S1 and S2 Respiratory: Patient wheezing, mild respiratory distress, oxygen saturation 97% on room air, tachypneic Abdomen: Soft and nontender. No rigidity. No distention. good BS x4 Skin: Skin warm and dry. Normal skin color. Normal skin turgor. Extremities: No lower extremity edema. No lower extremity edema. No Lacerations. No Rash Neuro: Oriented X 3. No motor deficit. No sensory deficit. Moving all exte rmities. No slurred speech. Course Course Course Narrative: patient continues coughing and wheezing, oxygen saturation is 97% on room air. I discussed the patient with our hospitalist, patient will be admitted for asthma exacerbation. [facility] - Asthma Lab Data Result diagrams: 09/03/20 18:50 09/03/20 18:50 Labs: Lab Results 09/03/20 09/03/20 Range/Units 18:50 18:50 WBC 5.0 (4.8-10.8) X10*3/uL RBC 3.45 L (4.20-5.50) X10*6/uL Hgb 9.5 L (12.0-16.0) g/dl Hct 29.6 L (37-47) % MCV 85.8 (80-98) fL MCH 27.5 (27.0-33.0) pg MCHC 32.1 (31.0-35.0) g/dl RDW 14.8 (11.0-16.0) % Plt Count 198 (160-400) X10*3/uL MPV 11.8 (9.4-12.3) fL Immature Gran % (Auto) 0.6 H (0.0-0.4) % Neut % (Auto) 51.6 (45-73) % Lymph % (Auto) 35.6 (20-40) % Bartholomew % (Auto) 9.0 (2-11) % Eos % (Auto) 2.8 (0-4) % Baso % (Auto) 0.4 (0-2) % Lymph # (Auto) 1.8 (1.2-4.9) X10*3/uL Bartholomew # (Auto) 0.5 (0.1-1.2) X10*3/uL Eos # (Auto) 0.1 (0.0-0.4) X10*3/uL Baso # (Auto) 0.0 (0.0-0.2) X10*3/uL Abs Immat Gran (auto) 0.03 (0.00-0.03) X10*3/uL Absolute Neuts (auto) 2.6 (2.0-8.3) X10*3/uL Absolute Nucleated RBC 0.000 (0.0-0.012) X10*3/uL Nucleated RBC % (auto) 0.0 (0.0-0.2) /100WBC Sodium 140 (135-145) mmol/L Potassium 3.4 (3.3-5.1) mmol/l Chloride 108 (96-108) mmol/L Carbon Dioxide 22 (22-29) mmol/L Anion Gap 13 (12-20) BUN 7 L (9-16) mg/dL Creatinine 0.82 (0.5-1.4) mg/dL Estim Creat Clear Calc 87.0 Estimated GFR > 60 Random Glucose 132 H D (60-115) mg/dL Calcium 8.5 (8.4-10.2) mg/dL Imaging Data Chest x-ray: Radiologist's impression: Once again, no significant abnormality is noted involving the heart, lungs, mediastinum, bony thorax or soft tissues. A left chest wall port remains in place with its tip at the SVC/RA junction. XR/XR chest 1V IMPRESSION: No acute intrathoracic disease. A cause for the patient's shortness of breath has not been found. Discharge Plan Discharge Clinical Impression: Asthma with exacerbation Qualifiers: Asthma severity: unspecified severity Asthma persistence: unspecified Qualified Code(s): J45.901 - Unspecified asthma with (acute) exacerbation Patient Disposition: Admitted As Inpatient
[2020-09-03] MEDS: LORazepam 2 MG/ML VIAL 1 MG IVPUSH (18:03)
[2020-09-03] MEDS: Magnesium Sulfate/H2O 2 GM/50 ML PIGGYBACK IV (18:04)
[2020-09-03] MEDS: methylPREDNISolone Sod Succ/PF 125 MG/2 ML VIAL IVPUSH (18:04)
[2020-09-03 18:16] VITALS: BP 128/76; PULSE 108; RESP 26; O2SAT 96
[2020-09-03] MEDS: diphenhydrAMINE HCL 50 MG/ML VIAL IVPUSH (18:19)
--- NOTE | 2020-09-03 18:22 | XR_ITS ---
EXAMINATION: XR CHEST CLINICAL INFORMATION: Shortness of breath COMPARISON: 08/23/2020 TECHNIQUE: Frontal view of the chest was obtained. FINDINGS: Once again, no significant abnormality is noted involving the heart, lungs, mediastinum, bony thorax or soft tissues. A left chest wall port remains in place with its tip at the SVC/RA junction. XR/XR chest 1V IMPRESSION: No acute intrathoracic disease. A cause for the patient's shortness of breath has not been found.
[2020-09-03 18:56] LABS: Basophils Percent Auto 0.4 % (0-2); Eosinophils Absolute Auto 0.1 X10*3/uL (0.0-0.4); Eosinophils Percent Auto 2.8 % (0-4); Hematocrit 29.6 % (37-47); Hemoglobin 9.5 g/dl (12.0-16.0); Imm Gran Abs Auto 0.03 X10*3/uL (0.00-0.03); Imm Gran Pct Auto 0.6 % (0.0-0.4); Lymphocytes Absolute Auto 1.8 X10*3/uL (1.2-4.9); Lymphocytes Percent Auto 35.6 % (20-40); Mean Corpuscular HGB Conc 32.1 g/dl (31.0-35.0); Mean Corpuscular Hemoglobin 27.5 pg (27.0-33.0); Mean Corpuscular Volume 85.8 fL (80-98); Mean Platelet Volume 11.8 fL (9.4-12.3); Monocytes Absolute Auto 0.5 X10*3/uL (0.1-1.2); Neutrophils Absolute Auto 2.6 X10*3/uL (2.0-8.3); Neutrophils Percent Auto 51.6 % (45-73); Platelet Count 198 X10*3/uL (160-400); Red Blood Count 3.45 X10*6/uL (4.20-5.50); Red Cell Distribution Width 14.8 % (11.0-16.0)
[2020-09-03 18:57] LABS: MANUAL DIFF FLAG NO
[2020-09-03 19:26] LABS: Anion Gap 13 (12-20); Blood Urea Nitrogen 7 mg/dL (9-16); Calcium 8.5 mg/dL (8.4-10.2); Carbon Dioxide 22 mmol/L (22-29); Chloride 108 mmol/L (96-108); Estimated Glomerular Filt Rate > 60; Glucose Random 132 mg/dL (60-115); Potassium 3.4 mmol/l (3.3-5.1); Sodium 140 mmol/L (135-145)
[2020-09-03 21:29] VITALS: BP 124/85; PULSE 110; O2SAT 95
[2020-09-03] MEDS: Benzonatate 100 MG CAPSULE 200 MG PO (21:38)
--- NOTE | 2020-09-03 21:53 | PC.NURSE ---
pt awake and alert, resting in bed. pt requested hospital pj bottoms and pad. pt also asking for ketamine, this was relayed to provider.
[2020-09-03 22:18] LABS: INTERNATIONAL NORM RATIO 1.9 (0.9-1.1); Prothrombin Time 22.5 SEC (10.8-13.0)
[2020-09-03 22:30] LABS: COVID-19 Test Negative (Negative)
[2020-09-03 22:36] VITALS: O2SAT 95
[2020-09-03 22:47] LABS: B Type Natriuretic Peptide 51 pg/mL (<100)
[2020-09-03] MEDS: Ketamine HCl 500 MG/5 ML VIAL 100 MG IM (22:49)
[2020-09-03 23:09] LABS: Pt Ventilation O2% ROOM AIR
--- NOTE | 2020-09-03 23:10 | P.HPHOSP_ITS ---
History of Present Illness Date of Service: 09/03/20 Chief Complaint: SOB 49 y/o female with PMHX of asthma who presented from home c/o SOB. Per history provided by the patient, for the past day has been having worsening difficulty breathing associated with wheezes. Denies any chest pain, nausea, vomiting, fever, sick contacts or any recent travel. Patient used to be a smoker but reports that stopped 1 year ago. Has been admitted in the past for asthma exacerbation in our premises, last time 1 month ago which was treated with duoneb, solumedrol and Ketamine (in the ED). On presentation currently patient was noted to be hypoxemic, RR 110 and tachypenic. Placed on oxygen therapy, given multiple doses of duoneb with minimal relieve on patients symptoms. One dose of ketamine to be administer now by ED. Decision for admission given at present to medicine. Patient seen and evaluated at the bedside, laying down in bed in mild resp distress. ROS as per above otherwise negative. Physical exam positive for w heezes, no rales or ronchi. PMHx: CHF, anxiety, asthma, depression, recurrent DVT, GI bleed, herniated disc L4 and L5, IBD, OCD PSx: Partial hysterectomy, adenoidectomy, tonsillectomy, breast reduction Family history: No significant family history Social history: Comes from home, former smoker no longer smokes, no history of alcohol or illicit drug use Review of Systems Cardiovascular: Cardiovascular: Reports dyspnea Respiratory: Respiratory: Reports cough, Reports dyspnea and Reports wheezing Allergic/Immunologic: Allergic/Immunologic: Reports wheezing [facility] Medical History (Updated 09/03/20 @ 23:19 by Siddharth Taylor MD) Anxiety Asthma CHF (congestive heart failure) Depression DVT (deep venous thrombosis) Hypertension Morbid obesity Functional capacity: independent ambulation Family history: reviewed and not pertinent Social History Household Members: Family Housing: House Alcohol intake: unknown Smoking Status: Unknown if ever smoked Second Hand Smoke Exposure: No Use of substances other than those prescribed or required for medical reasons: Unknown Advance Directives: No Advance Directives Information Provided: No service: No Current occupational status: unemployed Meds Allergies Allergy/AdvReac Type Severity Reaction Status Date / Time dexamethasone [From DECADRON] Allergy Severe HIVES Verified 08/03/20 18:35 oxycodone [From PERCOCET] Allergy Severe HIVES Verified 08/03/20 18:35 azithromycin Allergy Intermediate ITCHING Verified 08/03/20 18:35 [From ZITHROMAX Z-XANDER] acetaminophen [Percocet] Allergy Unknown Unknown Verified 08/03/20 18:35 amoxicillin [AMOXICILLIN] Allergy Unknown UNKNOWN, Verified 08/03/20 18:35 hives, swelling budesonide [From SYMBICORT] Allergy Unknown UNKNOWN Verified 08/03/20 18:35 cefpodoxime [From VANTIN] Allergy Unknown UNKNOWN Verified 08/03/20 18:35 cefuroxime [From CEFTIN] Allergy Unknown UNKNOWN Verified 08/03/20 18:35 Cephalosporins Allergy Unknown UNKNOWN Verified 08/03/20 18:35 [CEPHALOSPORINS] ciprofloxacin [From CIPRO] Allergy Unknown UNKNOWN Verified 08/03/20 18:35 diazepam [DIAZEPAM] Allergy Unknown ITCHING Verified 08/03/20 18:35 diphtheria,pertussis Allergy Unknown Unknown Verified 08/03/20 18:35 (acellular),te [Adacel(Tdap Adolesn/Adult)(PF)] erythromycin base Allergy Unknown UNKNOWN Verified 08/03/20 18:35 [ERYTHROMYCIN BASE] fluticasone [Advair Diskus] Allergy Unknown Unknown Verified 08/03/20 18:35 formoterol [From SYMBICORT] Allergy Unknown UNKNOWN Verified 08/03/20 18:35 hydrocodone [From VICODIN] Allergy Unknown unknown Verified 08/03/20 18:35 Iodinated Contrast Media Allergy Unknown UNKNOWN Verified 08/03/20 18:35 [CONTRAST, IV] levofloxacin [From LEVAQUIN] Allergy Unknown UNKNOWN Verified 08/03/20 18:35 penicillin G Allergy Unknown Unknown Verified 08/03/20 18:35 penicillin V Allergy Unknown Unknown Verified 08/03/20 18:35 Penicillins [PENICILLINS] Allergy Unknown UNKNOWN Verified 08/03/20 18:35 salmeterol [Advair Diskus] Allergy Unknown Unknown Verified 08/03/20 18:35 sertraline [From ZOLOFT] Allergy Unknown SUICIDAL Verified 08/03/20 18:35 Sulfa (Sulfonamide Allergy Unknown hives Verified 08/03/20 18:35 Antibiotics) tetanus and diphtheria Allergy Unknown UNKNOWN Verified 08/03/20 18:35 toxoids [TETANUS & DIPHTHERIA TOXOIDS] Vantin Allergy Unknown Unknown Verified 08/03/20 18:35 ketorolac [From TORADOL] AdvReac Mild ITCHING Verified 08/03/20 18:35 Ceftin Allergy Unknown Unknown Uncoded 07/20/20 20:23 IV dye Allergy Unknown Unknown Uncoded 07/20/20 20:23 Symbicort Allergy Unknown Unknown Uncoded 07/20/20 20:23 Tetanus Allergy Unknown Unknown Uncoded 07/20/20 20:23 Erythromycin Allergy Unknown Uncoded 07/20/20 20:23 Home Medications Medication Instructions Recorded Confirmed Type alprazolam PO 09/03/20 History diltiazem HCl 180 mg PO DAILY 09/03/20 09/03/20 History fluoxetine 60 mg PO DAILY 09/03/20 09/03/20 History montelukast 10 mg PO BEDTIME 09/03/20 09/03/20 History morphine 15 mg PO Q6H PRN 09/03/20 09/03/20 History risperidone 0.25 mg PO BEDTIME 09/03/20 09/03/20 History topiramate 50 mg PO DAILY 09/03/20 09/03/20 History trazodone 100 mg PO BEDTIME 09/03/20 09/03/20 History warfarin 5 mg PO DAILY 09/03/20 09/03/20 History warfarin 15 mg PO DAILY 09/03/20 09/03/20 History Physical Exam Vital Signs and Narrative: Vital Signs: Last Vital Signs Temp 97 F 09/03/20 15:37 Pulse 110 H 09/03/20 21:29 Resp 26 H 09/03/20 18:16 BP 124/85 09/03/20 21:29 Pulse Ox 95 09/03/20 21:29 Body Mass Index 43.0 Const: General: cooperative, well developed and anxious Orientation/c onsciousness: oriented to person, oriented to place and oriented to time HENMT: Head: Yes normal to inspection Eyes: General: appearance normal, both eyes and all related structures Neck: Yes normal visual inspection Chest: Chest palpation & inspection: normal inspection of the chest Resp: Effort & Inspection: able to speak in complete sentences, audible wheezes, Actively coughing and respiratory distress Auscultation: wheezes Cardio: Rate: tachycardic Heart sounds: S1 normal heart sound present and S2 normal heart sound present GI: Inspection: Yes normal to inspection Skin: General skin exam: no rashes or lesions noted Neuro: General: oriented to person, oriented to place and oriented to time Extrem: General: Yes normal to inspection Psych: Appearance: grossly normal Results Labs CBC and Chem 7: 09/03/20 18:50 09/03/20 18:50 Labs: Laboratory Results - last 24 hr 09/03/20 09/03/20 09/03/20 18:50 18:50 21:57 MCV 85.8 MCH 27.5 MCHC 32.1 RDW 14.8 Plt Count 198 MPV 11.8 Immature Gran % (Auto) 0.6 H Neut % (Auto) 51.6 Lymph % (Auto) 35.6 [place] % (Auto) 9.0 Eos % (Auto) 2.8 Baso % (Auto) 0.4 Lymph # (Auto) 1.8 [place] # (Auto) 0.5 Eos # (Auto) 0.1 Baso # (Auto) 0.0 Abs Immat Gran (auto) 0.03 Absolute Neuts (auto) 2.6 Absolute Nucleated RBC 0.000 Nucleated RBC % (auto) 0.0 PT 22.5 H D INR 1.9 H Oxygen Given Anion Gap 13 Estim Creat Clear Calc 87.0 Estimated GFR > 60 Random Glucose 132 H D Calcium 8.5 B-Natriuretic Peptide COVID-19 (ELYSE) COVID-FolderBoy Com 09/03/20 09/03/20 09/03/20 21:57 22:06 23:03 MCV MCH MCHC RDW Plt Count MPV Immature Gran % (Auto) Neut % (Auto) Lymph % (Auto) [place] % (Auto) Eos % (Auto) Baso % (Auto) Lymph # (Auto) [place] # (Auto) Eos # (Auto) Baso # (Auto) Abs Immat Gran (auto) Absolute Neuts (auto) Absolute Nucleated RBC Nucleated RBC % (auto) PT INR Oxygen Given ROOM AIR Anion Gap Estim Creat Clear Calc Estimated GFR Random Glucose Calcium B-Natriuretic Peptide 51 COVID-19 (ELYSE) Negative COVID-19 Clin Com See Note Imaging Radiologist's Impressions: Impressions Chest X-Ray 09/03/20 18:22 IMPRESSION: No acute intrathoracic disease. A cause for the patient's shortness of breath has not been found. Assessment and Plan (1) Asthma with exacerbation: Qualifiers: Asthma persistence: unspecified Asthma severity: unspecified severity Qualified Code(s): J45.901 - Unspecified asthma with (acute) exacerbation Status: Acute continue with oxygen therapy continue with solumedrol and taper off as tolerated. Benadryl to be given with the solumedrol dose in the am. No side effect seen in the ED after solumedrol was given. Follow up covid swab test Continue with duoneb therapy ABG ordered per Ed shows low CO2 which might be secondary to tachypnea, PaO2 level of 60. Patient noticed in the ED be okay but reacting with anxiety when anyone of the staff pass nearby, asking for ketamine to be given, Which raises the concern for possible psychogenic etiology of symptoms. Will monitor closely. (2) Hypertension: Status: Inactive continue with diltiazem home dose (3) DVT (deep venous thrombosis): Status: Inactive continue with coumadin home dose as ordered (patient taking 15 mg daily M- D and then only 5 mg on weekends) monitor INR (4) CHF (congestive heart failure): Status: Inactive stable (5) Depression: Status: Inactive continue with fluoxetine home dose continue with risperidone for underlying psychotic features continue with trazodone home dose (6) Anxiety: Status: Acute continue with fluoxetine as ordered
[2020-09-03 23:17] LABS: ABG PCO2 30 mmhg (32-45); HCO3 ABG 18 mmol/l (22-26); PO2 ABG 60 mmhg (83-108); pH ABG 7.39 (7.35-7.45)
[2020-09-03 23:18] LABS: Oxygen Saturation ABG 89.4 %
[2020-09-04] VITALS (10 sets, daily range): BP systolic 117–162; BP diastolic 65–82; PULSE 89–116; RESP 16–20; TEMP 36.4–36.8; O2SAT 93–98; BMI 44.3
--- NOTE | 2020-09-04 00:16 | PC.NURSE ---
PT HAS A MED PORT ON LEFT CHEST, FLUSHED FOLLOWING MAGNESIUM AND CLAMPED. PT REQUESTED AND WAS ADMINISTERED 100MG KETAMINE IM. SHORTLY FOLLOWING PT SLEEPING WITH GOOD RESPIRATORY EFFORT AND RATE. PT NO LONGER COUGHING.
--- NOTE | 2020-09-04 00:35 | PC.NURSE ---
AWAITING CALL BACK FROM FLOOR RN FOR REPORT.
--- NOTE | 2020-09-04 01:26 | PC.NURSE ---
report given to rn on floor, pt ready for transport.
[2020-09-04] MEDS: 0.9 % Sodium Chloride Flush 3 ML SYRINGE IVFLUSH ×4 (02:20→23:20)
[2020-09-04] MEDS: diphenhydrAMINE HCL 50 MG/ML VIAL 25 MG IVPUSH ×2 (06:53→12:18)
[2020-09-04 07:33] LABS: Basophils Percent Auto 0.1 % (0-2); Hematocrit 31.4 % (37-47); Imm Gran Abs Auto 0.11 X10*3/uL (0.00-0.03); Imm Gran Pct Auto 1.4 % (0.0-0.4); Lymphocytes Absolute Auto 0.7 X10*3/uL (1.2-4.9); Lymphocytes Percent Auto 8.7 % (20-40); MANUAL DIFF FLAG SCAN; Mean Corpuscular HGB Conc 31.8 g/dl (31.0-35.0); Mean Corpuscular Hemoglobin 27.2 pg (27.0-33.0); Mean Corpuscular Volume 85.6 fL (80-98); Mean Platelet Volume 12.1 fL (9.4-12.3); Monocytes Absolute Auto 0.1 X10*3/uL (0.1-1.2); Monocytes Percent Auto 0.8 % (2-11); Platelet Count 239 X10*3/uL (160-400); Red Blood Count 3.67 X10*6/uL (4.20-5.50); Red Cell Distribution Width 15.1 % (11.0-16.0); SCAN SMEAR FLAG 1; White Blood Count 7.9 X10*3/uL (4.8-10.8)
[2020-09-04 07:37] LABS: INTERNATIONAL NORM RATIO 1.9 (0.9-1.1); Prothrombin Time 22.1 SEC (10.8-13.0)
[2020-09-04 08:13] LABS: Anion Gap 16 (12-20); Blood Urea Nitrogen 8 mg/dL (9-16); Calcium 9.3 mg/dL (8.4-10.2); Carbon Dioxide 19 mmol/L (22-29); Chloride 108 mmol/L (96-108); Creatinine Clr Calc Pharmacy 95.7; Estimated Glomerular Filt Rate > 60; Glucose Random 199 mg/dL (60-115); Potassium 4.6 mmol/l (3.3-5.1); Sodium 138 mmol/L (135-145)
[2020-09-04 08:35] LABS: SLIDE REVIEW VERIFIED
[2020-09-04] MEDS: dilTIAZem HCL CD 180 MG CAP.ER.24H PO (08:41)
[2020-09-04] MEDS: FLUoxetine HCl 20 MG CAPSULE 60 MG PO (08:42)
[2020-09-04] MEDS: Topiramate 25 MG TABLET 50 MG PO (08:42)
--- NOTE | 2020-09-04 10:41 | P.CDIC_ITS ---
CDI Concurrent Query Service Date: 09/07/20 Documentation Clarification: Please clarify if you are treating a proba ble/suspected/likely or confirmed: BMI Morbid obesity Please specify if known wrong provider Provider Response: Other Other Diagnosis: wrong provider PLEASE DO NOT DELETE/MODIFY EXISTING CONTENT Additional information is needed in order to code to the highest accuracy and appropriate Severity of Illness (SOI). Please clarify the information noted below in your progress notes and discharge summary. Risk Factors/Clinical Indicators/Treatments Body mass index: 44.3 Nursing assessment - Extreme obesity Class III CDS: Marni Mcknight CCS, CDIS Contact Number: [phone] Please Review the information above and exercise your independent professional judgment in responding to the query. If you concur, pleas document in the PROGRESS NOTES and DISCHARGE SUMMARY. If you do not agree with the query, please document in the query above. THIS QUERY IS PART OF THE PERMANENT MEDICAL RECORD
--- NOTE | 2020-09-04 11:24 | MHC.CM.PN ---
CM met with patient at the bedside who reports she is independent and lives with her and 2 sons. Patient does have a HCP , Hussain [phone], and a copy is on file. Discussed discharge plan, home no services. or son will provide transportation. CM will continue to follow patient for discharge needs. IMM addressed.
[2020-09-04] MEDS: Morphine Sulfate Immed Release 15 MG TABLET PO ×2 (12:19→18:19)
--- NOTE | 2020-09-04 13:37 | HO.PM.IMPN ---
Subjective Subjective Date of Service: 09/05/20 Interval History: asthma excerebation Review of Systems stil feels sob Physical Exam Vital Signs: Vital Signs: Last Vital Signs Temp 97.9 F 09/04/20 11:57 Pulse 110 H 09/04/20 11:57 Resp 20 09/04/20 11:57 BP 162/82 H 09/04/20 11:57 Pulse Ox 96 09/04/20 11:57 Body Mass Index 44.3 Physical exam: Cvs: rrr, [id number] , no murmur res: diminshed at bases , wheezing present. abd: no rebound or guarding ,nt, bs present. ext pulses present , no cyanosis neuro: axo3 , nonfocal. Objective Data Current Medications Generic Name Dose Route Start Last Admin Trade Name Freq PRN Reason Stop Dose Admin Albuterol Sulfate 1.25 mg 09/04/20 01:18 Albuterol Sulfate (0.042%) 1.25 Mg/3 Ml Vial.Neb INHALE RQ4H PRN Shortness of Breath Diltiazem HCl 180 mg 09/04/20 09:00 09/04/20 08:41 Diltiazem Hcl Cd 180 Mg Cap.Er.24h PO 180 mg DAILY ONEIDA Administration Fluoxetine HCl 60 mg 09/04/20 09:00 09/04/20 08:42 Fluoxetine Hcl 20 Mg Capsule PO 60 mg DAILY ONEIDA Administration Methylprednisolone Sodium Succinate 40 mg 09/04/20 12:00 09/04/20 12:19 Methylprednisolone Sod Succ/Pf 40 Mg/Ml Vial IVPUSH Not Given Q24H ONEIDA Montelukast Sodium 10 mg 09/04/20 21:00 Montelukast Sodium 10 Mg Tablet PO BEDTIME ONEIDA Morphine Sulfate 15 mg 09/04/20 11:51 09/04/20 12:19 Morphine Sulfate Immed Release 15 Mg Tablet PO 15 mg Q6H PRN Administration Pain Nitrofurantoin Macrocrystals 100 mg 09/04/20 21:00 Nitrofurantoin Monohyd/M-Cryst 100 Mg Capsule PO BID [facility] Pharmacy Consult 1 each 09/03/20 20:56 Consult Rx Perform Med Rec MISCELLANE ONCE PRN Consult order Risperidone 0.25 mg 09/04/20 21:00 Risperidone 0.25 Mg Tablet PO BEDTIME [facility] Sodium Chloride 3 ml 09/04/20 01:18 09/04/20 08:41 0.9 % Sodium Chloride Flush 3 Ml Syringe IVFLUSH 3 ml QSHIFT [facility] Administration Topiramate 50 mg 09/04/20 09:00 09/04/20 08:42 Topiramate 25 Mg Tablet PO 50 mg DAILY ONEIDA Administration Trazodone HCl 100 mg 09/04/20 21:00 Trazodone Hcl 100 Mg Tablet PO BEDTIME [facility] Warfarin Sodium 15 mg 09/04/20 18:00 Warfarin Sodium 7.5 Mg Tablet PO [id number] [facility] Warfarin Sodium 5 mg 09/09/20 18:00 Warfarin Sodium 5 Mg Tablet PO [id number] [facility] Labs CBC & Chem 7: 09/04/20 06:45 09/04/20 06:30 Assessment and Plan (1) Asthma with exacerbation: Status: Acute Assessment and Plan: Asthma excerebation: continue solumedrole,continue , nebs with oxygen therapy continue with solumedrol and taper off as tolerated. Benadryl to be given with the solumedrol dose in the am. No side effect seen in the ED after solumedrol was given. Follow up covid and res panel neg UTI: cotninue microbid. dvt: inr 1.9 , continue warfarin (2) Anxiety: Status: Acute Assessment and Plan: continue with fluoxetine as ordered
[2020-09-04] MEDS: Warfarin Sodium 7.5 MG TABLET 15 MG PO (17:18)
[2020-09-04] MEDS: hydrOXYzine HCL 25 MG TABLET PO (18:18)
[2020-09-04] MEDS: Montelukast Sodium 10 MG TABLET PO (21:39)
[2020-09-04] MEDS: risperiDONE 0.25 MG TABLET PO (21:39)
[2020-09-04] MEDS: traZODone HCL 100 MG TABLET PO (21:39)
[2020-09-04] MEDS: Nitrofurantoin Monohyd/M-Cryst 100 MG CAPSULE PO (21:39)
[2020-09-05] MEDS: Morphine Sulfate Immed Release 15 MG TABLET PO ×3 (00:05→12:23)
[2020-09-05 03:29] VITALS: BP 119/78; PULSE 86; RESP 18; TEMP 36.6; O2SAT 94
[2020-09-05 07:29] VITALS: BP 127/73; PULSE 76; RESP 18; TEMP 36.5; O2SAT 94
[2020-09-05] MEDS: 0.9 % Sodium Chloride Flush 3 ML SYRINGE IVFLUSH (09:10)
[2020-09-05] MEDS: Nitrofurantoin Monohyd/M-Cryst 100 MG CAPSULE PO (09:10)
[2020-09-05 09:11] VITALS: BP 127/73; PULSE 76
[2020-09-05] MEDS: Topiramate 25 MG TABLET 50 MG PO (09:11)
[2020-09-05] MEDS: dilTIAZem HCL CD 180 MG CAP.ER.24H PO (09:11)
[2020-09-05] MEDS: FLUoxetine HCl 20 MG CAPSULE 60 MG PO (09:11)
[2020-09-05 09:59] LABS: INTERNATIONAL NORM RATIO 2.1 (0.9-1.1); Prothrombin Time 24.6 SEC (10.8-13.0)
[2020-09-05] MEDS: diphenhydrAMINE HCL 50 MG/ML VIAL 25 MG IVPUSH (10:46)
[2020-09-05 11:28] VITALS: BP 143/67; PULSE 83; RESP 18; TEMP 37; O2SAT 96
--- NOTE | 2020-09-05 13:37 | P.DS_ITS ---
DS: Providers Provider Date of admission: 09/03/20 23:49 Primary care physician: Unknown Physician DS: Diagnosis Discharge Diagnosis (1) Asthma with exacerbation: Status: Acute (2) Anxiety: Status: Acute (3) DVT (deep venous thrombosis): Status: Acute DS: Medications Discharge Medications Home Medications: Home Medications Medication Instructions Recorded Confirmed alprazolam PO 09/03/20 diltiazem HCl 180 mg PO DAILY 09/03/20 09/03/20 fluoxetine 60 mg PO DAILY 09/03/20 09/03/20 montelukast 10 mg PO BEDTIME 09/03/20 09/03/20 morphine 15 mg PO Q6H PRN 09/03/20 09/03/20 risperidone 0.25 mg PO BEDTIME 09/03/20 09/03/20 topiramate 50 mg PO DAILY 09/03/20 09/03/20 trazodone 100 mg PO BEDTIME 09/03/20 09/03/20 warfarin 5 mg PO SUSA 09/03/20 09/04/20 warfarin 15 mg PO MOTUWETHFR 09/03/20 09/04/20 nitrofurantoin monohyd/m-cryst 100 mg PO BID 09/04/20 09/04/20 DS: Summary Status at Discharge Cognitive/behavioral status at discharge: 49 y/o female with PMHX of asthma who presented from home c/o SOB. Per history provided by the patient, for the past day has been having worsening difficulty breathing associated with wheezes. Denies any chest pain, nausea, vomiting, fever, sick contacts or any recent travel. Patient used to be a smoker but reports that stopped 1 year ago. Has been admitted in the past for asthma exacerbation in our premises, last time 1 month ago which was treated with duoneb, solumedrol and Ketamine (in the ED). On presentation currently patient was noted to be hypoxemic, RR 110 and tachypenic. Placed on oxygen therapy, given multiple doses of duoneb with minimal relieve on patients symptoms. One dose of ketamine to be administer now by ED. Decision for admission given at present to medicine. Patient seen and evaluated at the bedside, laying down in bed in mild resp distress. ROS as per above otherwise negative. Physical exam positive for wheezes, no rales or ronchi. PMHx: CHF, anxiety, asthma, depression, recurrent DVT, GI bleed, herniated disc L4 and L5, IBD, OCD. Hospital cause problem virk section: Patient came with asthma exacerbation: Started on nebs, steroids and seems to be improving, subsequently patient will be discharged on p.o. steroids. DVT virk: Initially INR was borderline 1.9 , seems to be improved in her home warfarin dosing today INR is 2.1, continue warfarin and monitor INR out patiently with PCP and further management accordingly. Patient also has ER discomfort on the left side: Bilateral ear exam was done: Right-sided ear is within normal limit exam virk: Left-sided ear has some dried blood, she said she had some bleeding from the ear area on the left side re cently . She was advised to follow-up with Dr. Silver out patiently ENT virk and further management outpatient as per Dr. Silver. Above management discussed with the patient in detail length she understand and in agreement with the above plan, time spent 50 minutes and 50% time spent on counseling. Significant findings: As above. Procedures performed: None. Treatment and response: As above. Complications: None. Time Spent with Patient Time attestation: Total time spent providing and/or coordinating discharge services: Physical Exam Vital Signs: Vital Signs: Last Vital Signs Temp 98.6 F 09/05/20 11:28 Pulse 83 09/05/20 11:28 Resp 18 09/05/20 11:28 BP 143/67 H 09/05/20 11:28 Pulse Ox 96 09/05/20 11:28 Body Mass Index 44.3 Physical exam: Cvs: rrr, [id number] , no murmur res: clear to auscultation ,no rhonchii or wheezing abd: no rebound or guarding ,nt, bs present. ext pulses present , no cyanosis neuro: axo3 , nonfocal. DS: Data Data Completed and Pending Labs on day of discharge: 09/03/20 17:20 Albuterol Sulfate (0.083%) [Ventolin (0.083%)] 10 mg INHALE ONCE ONE Magnesium Sulfate/H2O 2 gm in 50 ml IV ONCE methylPREDNISolone Sod Succ/PF [SOLU-MedroL] 125 mg IVPUSH ONCE ONE 09/03/20 17:40 LORazepam [Ativan] 1 mg IVPUSH ONCE ONE 09/03/20 18:12 diphenhydrAMINE HCL [Benadryl] 50 mg IVPUSH ONCE ONE 09/03/20 18:22 XR chest 1V Stat 09/03/20 18:50 Basic Metabolic Panel Stat Complete Blood Count Auto Diff Stat 09/03/20 20:55 Albuterol Sulfate (0.083%) [Ventolin (0.083%)] 10 mg INHALE ONCE ONE 09/03/20 20:56 Benzonatate [Tessalon] 200 mg PO ONCE ONE 09/03/20 21:57 B Type Natriuretic Peptide Stat Prothrombin Time INR Stat 09/03/20 22:06 COVID-19 ID NOW (Aguilar) Stat 09/03/20 22:36 Ketamine HCl [Ketalar] 100 mg IM ONCE ONE 09/03/20 23:03 Arterial Blood Gas Routine 09/03/20 23:46 Transfer Order Routine 09/04/20 01:18 methylPREDNISolone Sod Succ/PF [SOLU-MedroL] 40 mg IVPUSH ONCE ONE 09/04/20 02:56 Ibuprofen [Motrin] 600 mg PO ONCE ONE 09/04/20 06:00 diphenhydrAMINE HCL [Benadryl] 25 mg IVPUSH ONCE ONE 09/04/20 06:27 methylPREDNISolone Sod Succ/PF [SOLU-MedroL] 40 mg IVPUSH ONCE ONE 09/04/20 06:30 Basic Metabolic Panel Routine Prothrombin Time INR DAILY 09/04/20 06:45 Complete Blood Count Auto Diff Routine SLIDE REVIEW Routine 09/04/20 Breakfast Regular Diet 09/04/20 11:42 diphenhydrAMINE HCL [Benadryl] 25 mg IVPUSH ONCE ONE 09/04/20 18:09 hydrOXYzine HCL [Atarax] 25 mg PO ONCE ONE 09/05/20 09:16 Prothrombin Time INR Urgent 09/05/20 10:13 diphenhydrAMINE HCL [Benadryl] 25 mg IVPUSH ONCE ONE Laboratory Last Values WBC 7.9 X10*3/uL (4.8-10.8) 09/04/20 06:45 RBC 3.67 X10*6/uL (4.20-5.50) L 09/04/20 06:45 Hgb 10.0 g/dl (12.0-16.0) L 09/04/20 06:45 Hct 31.4 % (37-47) L 09/04/20 06:45 MCV 85.6 fL (80-98) 09/04/20 06:45 MCH 27.2 pg (27.0-33.0) 09/04/20 06:45 MCHC 31.8 g/dl (31.0-35.0) 09/04/20 06:45 RDW 15.1 % (11.0-16.0) 09/04/20 06:45 Plt Count 239 X10*3/uL (160-400) 09/04/20 06:45 MPV 12.1 fL (9.4-12.3) 09/04/20 06:45 Immature Gran % (Auto) 1.4 % (0.0-0.4) H 09/04/20 06:45 Neut % (Auto) 89.0 % (45-73) H 09/04/20 06:45 Lymph % (Auto) 8.7 % (20-40) L 09/04/20 06:45 [place] % (Auto) 0.8 % (2-11) L 09/04/20 06:45 Eos % (Auto) 0.0 % (0-4) 09/04/20 06:45 Baso % (Auto) 0.1 % (0-2) 09/04/20 06:45 Lymph # (Auto) 0.7 X10*3/uL (1.2-4.9) L 09/04/20 06:45 [place] # (Auto) 0.1 X10*3/uL (0.1-1.2) 09/04/20 06:45 Eos # (Auto) 0.0 X10*3/uL (0.0-0.4) 09/04/20 06:45 Baso # (Auto) 0.0 X10*3/uL (0.0-0.2) 09/04/20 06:45 Abs Immat Gran (auto) 0.11 X10*3/uL (0.00-0.03) H 09/04/20 06:45 Absolute Neuts (auto) 7.0 X10*3/uL (2.0-8.3) 09/04/20 06:45 Absolute Nucleated RBC 0.000 X10*3/uL (0.0-0.012) 09/04/20 06:45 Nucleated RBC % (auto) 0.0 /100WBC (0.0-0.2) 09/04/20 06:45 Smear Tech's Comments VERIFIED 09/04/20 06:45 PT 24.6 SEC (10.8-13.0) H 09/05/20 09:16 INR 2.1 (0.9-1.1) H 09/05/20 09:16 ABG pH 7.39 (7.35-7.45) 09/03/20 23:03 ABG pCO2 30 mmhg (32-45) L 09/03/20 23:03 ABG pO2 60 mmhg (83-108) L 09/03/20 23:03 ABG HCO3 18 mmol/l (22-26) L 09/03/20 23:03 ABG O2 Saturation 89.4 % 09/03/20 23:03 ABG Base Excess -6.0 09/03/20 23:03 Oxygen Given ROOM AIR 09/03/20 23:03 Sodium 138 mmol/L (135-145) 09/04/20 06:30 Potassium 4.6 mmol/l (3.3-5.1) D 09/04/20 06:30 Chloride 108 mmol/L (96-108) 09/04/20 06:30 Carbon Dioxide 19 mmol/L (22-29) L 09/04/20 06:30 Anion Gap 16 (12-20) 09/04/20 06:30 BUN 8 mg/dL (9-16) L 09/04/20 06:30 Creatinine 0.76 mg/dL (0.5-1.4) 09/04/20 06:30 Estim Creat Clear Calc 95.7 09/04/20 06:30 Estimated GFR > 60 09/04/20 06:30 Random Glucose 199 mg/dL (60-115) H D 09/04/20 06:30 Calcium 9.3 mg/dL (8.4-10.2) D 09/04/20 06:30 B-Natriuretic Peptide 51 pg/mL (<100) 09/03/20 21:57 COVID-19 (ELYSE) Negative (Negative) 09/03/20 22:06 COVID-19 Clin Com See Note 09/03/20 22:06 Discharge Plan Discharge Patient Disposition: Home, Self-Care Referrals: Vel Martinez MD [Physician] - 1 Week (Please call and schedule a follow up appointment per Dr office.) Discharge Medications: New prednisone 20 mg tablet 20 mg PO DAILY Qty: 3 RF: 0 Continued diltiazem HCl 180 mg Capsule,Extended Release 24 Hr 180 mg PO DAILY RF: 0 alprazolam 1 mg tablet PO RF: 0 risperidone 0.25 mg Tablet 0.25 mg PO BEDTIME RF: 0 montelukast 10 mg Tablet 10 mg PO BEDTIME RF: 0 topiramate 50 mg Tablet 50 mg PO DAILY RF: 0 fluoxetine 60 mg Tablet 60 mg PO DAILY RF: 0 warfarin 10 mg Tablet 15 mg PO MOTUWETHFR RF: 0 trazodone 100 mg Tablet 100 mg PO BEDTIME RF: 0 warfarin 5 mg Tablet 5 mg PO SUSA RF: 0 morphine 15 mg Tablet 15 mg PO Q6H PRN (Reason: Pain) RF: 0 nitrofurantoin monohyd/m-cryst 100 mg capsule 100 mg PO BID RF: 0 Discharge Orders: Discharge Order (Routine); Ordered 09/05/20 Ordered By: Hank Roberts Diet: advance to usual diet Activity on Discharge: As tolerated Visit Report Forms: Patient Portal Discharge page Care Plan Goals: Patient came with asthma exacerbation-given nebs, steroids and seems improving, seems to near her baseline, going home with p.o. steroids. has hx of dvt -INR was initially borderline which is improved to therapeutic range 2.1, monitor INR with PCP and further management outpatient as per PCP. Health Concerns: As above. Plan of Treatment: As above.
[2020-09-05] MEDS: diphenhydrAMINE HCL 25 MG TABLET PO (13:41)
--- NOTE | 2020-09-05 13:56 | MHC.CM.PN ---
Patient will be discharged home no services. /son will provide transportation.
== END 2020-09-05 14:26 | disposition home or self-care (01) | DRG 202 ==
LOC: HO.ED 20:58 → HO.IMC 23:59
PROVIDERS: Nurse Practitioner Family; Admitting Provider Internal Medicine; Emergency Provider Emergency Medicine; Visit Provider Internal Medicine
DX: J45.901 Unspecified asthma with (acute) exacerbation (principal); N39.0 Urinary tract infection, site not specified; Z68.41 Body mass index [BMI] 40.0-44.9, adult; F41.9 Anxiety disorder, unspecified; E66.01 Morbid (severe) obesity due to excess calories; Z20.828 Contact with and (suspected) exposure to other viral communicable diseases; Z86.718 Personal history of other venous thrombosis and embolism; Z87.891 Personal history of nicotine dependence; Z88.0 Allergy status to penicillin; Z88.2 Allergy status to sulfonamides; Z88.5 Allergy status to narcotic agent; Z88.6 Allergy status to analgesic agent; Z79.01 Long term (current) use of anticoagulants; Z79.891 Long term (current) use of opiate analgesic; Z79.899 Other long term (current) drug therapy
CPT/HCPCS: 36415; 71045; 80048; 82803; 83880; 85025; 85610; 87635; 94640; 94644; 94645; 96365; 96366; 96372; 96375; 99285; J1200; J1642; J2060; J2920; J2930; J3475; Q0163

== ENCOUNTER 2020-10-02 22:07 | Emergency (ER) | payer MEDICARE, MEDICAID, SELFPAY ==
[2020-10-02 22:24] VITALS: BP 140/75; PULSE 105; RESP 13; TEMP 36.8; O2SAT 99; BMI 44.9
--- NOTE | 2020-10-02 22:24 | XR_ITS ---
EXAMINATION: XR CHEST CLINICAL INFORMATION: Shortness of breath COMPARISON: 09/03/2020 TECHNIQUE: Frontal view of the chest was obtained. FINDINGS: Lungs are clear. No focal consolidation or mass. Normal pulmonary vascularity. No pleural effusion or pneumothorax. CT compatible left-sided chest port with catheter tip in the right atrium, unchanged. XR/XR chest 1V IMPRESSION: No acute pulmonary disease. No significant change from prior study.
--- NOTE | 2020-10-02 22:27 | ED.SOB ---
HPI - SOB/Dyspnea General Chief Complaint: Dyspnea Stated Complaint: sob,cough Time Seen by Provider: 10/02/20 22:20 Source: patient History of Present Illness HPI Narrative: This is a 49-year-old female who is well known to this emergency department and presents with reported asthma exacerbation after having been evaluated at [place] emergency department and receiving breathing treatments there. Patient states that she had felt better and then was on her way home and began experiencing another asthma attack. She further endorses that she has been admitted there twice over the past 3 weeks and on review of her records she was admitted here to our facility on 09/03. Patient states that she is currently doing a Lovenox to Coumadin bridge under the direction of her primary care provider. Related Data Home Medications Medication Instructions Recorded Confirmed alprazolam PO 09/03/20 diltiazem HCl 180 mg PO DAILY 09/03/20 09/03/20 fluoxetine 60 mg PO DAILY 09/03/20 09/03/20 montelukast 10 mg PO BEDTIME 09/03/20 09/03/20 morphine 15 mg PO Q6H PRN 09/03/20 09/03/20 risperidone 0.25 mg PO BEDTIME 09/03/20 09/03/20 topiramate 50 mg PO DAILY 09/03/20 09/03/20 trazodone 100 mg PO BEDTIME 09/03/20 09/03/20 warfarin 5 mg PO SUSA 09/03/20 09/04/20 warfarin 15 mg PO MOTUWETHFR 09/03/20 09/04/20 nitrofurantoin monohyd/m-cryst 100 mg PO BID 09/04/20 09/04/20 Previous Rx's Medication Instructions Recorded prednisone 20 mg PO DAILY #3 tab 09/05/20 prednisone 50 mg PO DAILY 4 Days #4 tab 10/03/20 Allergies Allergy/AdvReac Type Severity Reaction Status Date / Time dexamethasone [From DECADRON] Allergy Severe HIVES Verified 10/02/20 22:28 oxycodone [From PERCOCET] Allergy Severe HIVES Verified 10/02/20 22:28 azithromycin Allergy Intermediate ITCHING Verified 10/02/20 22:28 [From ZITHROMAX Z-XANDER] acetaminophen [Percocet] Allergy Unknown Unknown Verified 10/02/20 22:28 amoxicillin [AMOXICILLIN] Allergy Unknown UNKNOWN, Verified 10/02/20 22:28 hives, swelling budesonide [From SYMBICORT] Allergy Unknown UNKNOWN Verified 10/02/20 22:28 cefpodoxime [From VANTIN] Allergy Unknown UNKNOWN Verified 10/02/20 22:28 cefuroxime [From CEFTIN] Allergy Unknown UNKNOWN Verified 10/02/20 22:28 Cephalosporins Allergy Unknown UNKNOWN Verified 10/02/20 22:28 [CEPHALOSPORINS] ciprofloxacin [From CIPRO] Allergy Unknown UNKNOWN Verified 10/02/20 22: diazepam [DIAZEPAM] Allergy Unknown ITCHING Verified 10/02/20 22:28 diphtheria,pertussis Allergy Unknown Unknown Verified 10/02/20 22:28 (acellular),te [Adacel(Tdap Adolesn/Adult)(PF)] erythromycin base Allergy Unknown UNKNOWN Verified 10/02/20 22:28 [ERYTHROMYCIN BASE] fluticasone [Advair Diskus] Allergy Unknown Unknown Verified 10/02/20 22:28 formoterol [From SYMBICORT] Allergy Unknown UNKNOWN Verified 10/02/20 22:28 hydrocodone [From VICODIN] Allergy Unknown unknown Verified 10/02/20 22:28 Iodinated Contrast Media Allergy Unknown UNKNOWN Verified 10/02/20 22:28 [CONTRAST, IV] levofloxacin [From LEVAQUIN] Allergy Unknown UNKNOWN Verified 10/02/20 22:28 penicillin G Allergy Unknown Unknown Verified 10/02/20 22:28 penicillin V Allergy Unknown Unknown Verified 10/02/20 22:28 Penicillins [PENICILLINS] Allergy Unknown UNKNOWN Verified 10/02/20 22:28 salmeterol [Advair Diskus] Allergy Unknown Unknown Verified 10/02/20 22:28 sertraline [From ZOLOFT] Allergy Unknown SUICIDAL Verified 10/02/20 22:28 Sulfa (Sulfonamide Allergy Unknown hives Verified 10/02/20 22:28 Antibiotics) tetanus and diphtheria Allergy Unknown UNKNOWN Verified 10/02/20 22:28 toxoids [TETANUS & DIPHTHERIA TOXOIDS] Vantin Allergy Unknown Unknown Verified 10/02/20 22:28 ketorolac [From TORADOL] AdvReac Mild ITCHING Verified 10/02/20 22:28 Ceftin Allergy Unknown Unknown Uncoded 10/02/20 22:28 IV dye Allergy Unknown Unknown Uncoded 10/02/20 22:28 Symbicort Allergy Unknown Unknown Uncoded 12/14/20 22:28 Tetanus Allergy Unknown Unknown Uncoded 10/02/20 22:28 Erythromycin Allergy Unknown Uncoded 10/02/20 22:28 Review of Systems Review of Systems: Pertinent positives and negatives as stated in HPI 10 point review of systems is otherwise negative. [facility] Past Medical History Source: nursing notes reviewed Medical History Anxiety Asthma Atrial fibrillation CHF (congestive heart failure) Depression DVT (deep venous thrombosis) Hypertension Morbid obesity Social History Social History Household Members: Family Housing: House Alcohol intake: unknown Smoking Status: Former smoker Second Hand Smoke Exposure: No Advance Directives: No Advance Directives Information Provided: Yes service: No Current occupational status: unemployed Physical Exam Vital Signs: Vital Signs: Last Vital Signs Temp 98.3 F 10/02/20 22:24 Pulse 96 10/02/20 23:01 Resp 13 10/02/20 22:24 BP 140/75 H 10/02/20 22:24 Pulse Ox 99 10/02/20 22:24 Body Mass Index 44.9 VITAL SIGNS: Reviewed. GENERAL: Well developed, well nourished, in no acute distress. HEAD: Normocephalic/atraumatic, EYES: PERRLA, EOMI intact without pain, no nystagmus/pallor/icterus noted EARS: Ext canals without abnormality, TMs non-bulging and non-erythematous NOSE: Nares patent bilateral OROPHARYNX: no oral lesions noted, posterior pharynx clear and non-erythematous without noted tonsillar enlargement/erythema/exudates NECK: Supple, no adenopathy LUNGS: Normal breath sounds. No adventitious sounds or accessory muscle use. SpO2<99> CARDIOVASCULAR: Regular rate and rhythm without noted murmurs, no JVD or lower extremity edema. ABDOMEN: Soft, non-tender, non-distended with bowel sounds. No rigidity. No guarding. No palpable masses or hernias noted MUSCULOSKELETAL: No tenderness, deformities, or effusions noted on gross inspection. EXTREMITIES: No cyanosis, clubbing or edema. SKIN: Inspection of the skin reveals no rashes, ulcerations, jaundice, pallor, or petechiae. NEUROLOGIC: Alert and oriented x 4. Strength and sensation to light touch were grossly intact x 4. Course Course Course Narrative: This is a 49-year-old female with history and clinical presentation consistent with poorly controlled asthma and specifically requesting ketamine. Patient was initially observed to be resting comfortably in the gurney not tachypneic, however when I entered the room she began breathing quickly and followups to be exhibiting increased work of breathing while she provided the history. Her oxygenation has remained within normal limits and again it was noted that when I prepared to auscultate her lungs she then began experiencing audible wheezing and on auscultation it was noted that she was bearing down at the end of the expiratory cycle. Will evaluate the patient for evidence of asthma exacerbation, pneumonia, CHF. She reports a recent GI bleed that she was treated for at [place] and we are awaiting for documentation from [place] at this time. There is no suspicion for COVID-19 at this time. On review of all investigations there is no evidence of systemic infection, anemia is chronically stable, and INR is not therapeutic but may be secondary to patient undergoing current bridging with Lovenox. BNP/chest x-ray/clinical exam inconsistent with CHF. Multiple rhythm strips demonstrate sinus tachycardia which is consistent with patient's multiple albuterol treatments between [facility] and here at our facility. ABG is without evidence of CO2 retention and SaO2 on room air is 99.4%. Plan is for patient to be discharged on a course of steroids with recommendations to follow-up with whomever prescribes her Coumadin. We have not received any documentation from [facility] at this time, but there is no evidence to suggest acute bleeding and patient has outpatient Gastroenterology following her. Again it is noted that patient was resting comfortably in the gurney until I entered the room to provide her with all the results and findings and reassure her that she is otherwise stable for discharge to home with follow-up in the morning with both her room service runner and primary care provider for further outpatient management via either medication adjustments or further workup. At the time that I entered the room patient began coughing and breathing heavily and was visibly upset at hearing that she was going to be discharged. She was also informed that she would be provided with a short course of oral steroids (which on review of her documentation she has been able to tolerate without difficulty although it is documented as being an allergy in her chart). MDM - SOB/Dyspnea Lab Data Result diagrams: 10/02/20 22:53 10/02/20 22:53 Labs: Lab Results 10/02/20 10/02/20 10/02/20 Range/Units 22:53 22:53 22:53 WBC 6.6 (4.8-10.8) X10*3/uL RBC 4.12 L (4.20-5.50) X10*6/uL Hgb 11.4 L (12.0-16.0) g/dl Hct 34.3 L (37-47) % MCV 83.3 (80-98) fL MCH 27.7 (27.0-33.0) pg MCHC 33.2 (31.0-35.0) g/dl RDW 14.9 (11.0-16.0) % Plt Count 194 (160-400) X10*3/uL MPV 11.6 (9.4-12.3) fL Immature Gran % (Auto) 0.5 H (0.0-0.4) % Neut % (Auto) 67.3 (45-73) % Lymph % (Auto) 23.4 (20-40) % Drew % (Auto) 7.6 (2-11) % Eos % (Auto) 1.2 (0-4) % Baso % (Auto) 0.0 (0-2) % Lymph # (Auto) 1.5 (1.2-4.9) X10*3/uL Drew # (Auto) 0.5 (0.1-1.2) X10*3/uL Eos # (Auto) 0.1 (0.0-0.4) X10*3/uL Baso # (Auto) 0.0 (0.0-0.2) X10*3/uL Abs Immat Gran (auto) 0.03 (0.00-0.03) X10*3/uL Absolute Neuts (auto) 4.4 (2.0-8.3) X10*3/uL Absolute Nucleated RBC 0.000 (0.0-0.012) X10*3/uL Nucleated RBC % (auto) 0.0 (0.0-0.2) /100WBC PT 12.8 D (10.8-13.0) SEC INR 1.1 (0.9-1.1) ABG pH (7.35-7.45) ABG pCO2 (32-45) mmhg ABG pO2 (83-108) mmhg ABG HCO3 (22-26) mmol/l ABG O2 Saturation % ABG Base Excess Oxygen Given Sodium (135-145) mmol/L Potassium (3.3-5.1) mmol/l Chloride (96-108) mmol/L Carbon Dioxide (22-29) mmol/L Anion Gap (12-20) BUN (9-16) mg/dL Creatinine (0.5-1.4) mg/dL Estim Creat Clear Calc Estimated GFR Random Glucose (60-115) mg/dL Calcium (8.4-10.2) mg/dL Total Bilirubin (0.0-1.0) mg/dL AST (5-31) U/L ALT (0-31) U/L Alkaline Phosphatase (39-117) U/L B-Natriuretic Peptide 12 (<100) pg/mL Total Protein (6.5-8.0) g/dL Albumin (3.5-5.0) g/dL 10/02/20 10/02/20 Range/Units 22:53 23:12 WBC (4.8-10.8) X10*3/uL RBC (4.20-5.50) X10*6/uL Hgb (12.0-16.0) g/dl Hct (37-47) % MCV (80-98) fL MCH (27.0-33.0) pg MCHC (31.0-35.0) g/dl RDW (11.0-16.0) % Plt Count (160-400) X10*3/uL MPV (9.4-12.3) fL Immature Gran % (Auto) (0.0-0.4) % Neut % (Auto) (45-73) % Lymph % (Auto) (20-40) % Drew % (Auto) (2-11) % Eos % (Auto) (0-4) % Baso % (Auto) (0-2) % Lymph # (Auto) (1.2-4.9) X10*3/uL Drew # (Auto) (0.1-1.2) X10*3/uL Eos # (Auto) (0.0-0.4) X10*3/uL Baso # (Auto) (0.0-0.2) X10*3/uL Abs Immat Gran (auto) (0.00-0.03) X10*3/uL Absolute Neuts (auto) (2.0-8.3) X10*3/uL Absolute Nucleated RBC (0.0-0.012) X10*3/uL Nucleated RBC % (auto) (0.0-0.2) /100WBC PT (10.8-13.0) SEC INR (0.9-1.1) ABG pH 7.44 (7.35-7.45) ABG pCO2 31 L (32-45) mmhg ABG pO2 231 H (83-108) mmhg ABG HCO3 21 L (22-26) mmol/l ABG O2 Saturation 99.4 % ABG Base Excess -2.8 Oxygen Given ROOM AIR Sodium 140 (135-145) mmol/L Potassium 4.0 (3.3-5.1) mmol/l Chloride 108 (96-108) mmol/L Carbon Dioxide 22 (22-29) mmol/L Anion Gap 14 (12-20) BUN 17 H D (9-16) mg/dL Creatinine 1.00 (0.5-1.4) mg/dL Estim Creat Clear Calc 73.3 Estimated GFR 59 Random Glucose 154 H (60-115) mg/dL Calcium 7.9 L D (8.4-10.2) mg/dL Total Bilirubin 0.5 (0.0-1.0) mg/dL AST 19 (5-31) U/L ALT 30 (0-31) U/L Alkaline Phosphatase 67 D (39-117) U/L B-Natriuretic Peptide (<100) pg/mL Total Protein 5.6 L (6.5-8.0) g/dL Albumin 3.7 (3.5-5.0) g/dL Discharge Plan Discharge Clinical Impression: Asthma with exacerbation Qualifiers: Asthma severity: mild Asthma persistence: persistent Qualified Code(s): J45.31 - Mild persistent asthma with (acute) exacerbation Patient Disposition: Home, Self-Care Instructions: Asthma (ED) Additional Instructions: 1. Please resume all home medications as prescribed. 2. Please follow up by calling your primary care provider tomorrow morning for re-evaluation after having been seen in the emergency department, copies of your visit will be sent to your primary care provider, room service runner, and java performance engineer. Prescriptions: New prednisone 50 mg tablet 50 mg PO DAILY 4 Days Qty: 4 RF: 0 No Action diltiazem HCl 180 mg Capsule,Extended Release 24 Hr 180 mg PO DAILY RF: 0 alprazolam 1 mg tablet PO RF: 0 risperidone 0.25 mg Tablet 0.25 mg PO BEDTIME RF: 0 montelukast 10 mg Tablet 10 mg PO BEDTIME RF: 0 topiramate 50 mg Tablet 50 mg PO DAILY RF: 0 fluoxetine 60 mg Tablet 60 mg PO DAILY RF: 0 warfarin 10 mg Tablet 15 mg PO MOTUWETHFR RF: 0 trazodone 100 mg Tablet 100 mg PO BEDTIME RF: 0 warfarin 5 mg Tablet 5 mg PO SUSA RF: 0 morphine 15 mg Tablet 15 mg PO Q6H PRN (Reason: Pain) RF: 0 nitrofurantoin monohyd/m-cryst 100 mg capsule 100 mg PO BID RF: 0 prednisone 20 mg tablet 20 mg PO DAILY Qty: 3 RF: 0 Referrals: Edilma Bunn MD [Physician] - 2 days (Re-evaluation after being seen at both [facility] as well as here at [facility] for respiratory symptoms, ABG/CXR/lab work without acute findings.)
[2020-10-02 23:01] VITALS: PULSE 96; O2SAT 100
[2020-10-02] MEDS: Albuterol Sulfate (0.083%) 2.5 MG/3 ML VIAL.NEB 10 MG INHALE (23:01)
[2020-10-02 23:12] LABS: MANUAL DIFF FLAG NO
[2020-10-02 23:14] LABS: Eosinophils Absolute Auto 0.1 X10*3/uL (0.0-0.4); Eosinophils Percent Auto 1.2 % (0-4); Hematocrit 34.3 % (37-47); Hemoglobin 11.4 g/dl (12.0-16.0); Imm Gran Abs Auto 0.03 X10*3/uL (0.00-0.03); Imm Gran Pct Auto 0.5 % (0.0-0.4); Lymphocytes Absolute Auto 1.5 X10*3/uL (1.2-4.9); Lymphocytes Percent Auto 23.4 % (20-40); Mean Corpuscular HGB Conc 33.2 g/dl (31.0-35.0); Mean Corpuscular Hemoglobin 27.7 pg (27.0-33.0); Mean Corpuscular Volume 83.3 fL (80-98); Mean Platelet Volume 11.6 fL (9.4-12.3); Monocytes Absolute Auto 0.5 X10*3/uL (0.1-1.2); Monocytes Percent Auto 7.6 % (2-11); Neutrophils Absolute Auto 4.4 X10*3/uL (2.0-8.3); Neutrophils Percent Auto 67.3 % (45-73); Platelet Count 194 X10*3/uL (160-400); Red Blood Count 4.12 X10*6/uL (4.20-5.50); Red Cell Distribution Width 14.9 % (11.0-16.0); White Blood Count 6.6 X10*3/uL (4.8-10.8)
[2020-10-02 23:19] LABS: ABG PCO2 31 mmhg (32-45); Base Excess ABG -2.8; HCO3 ABG 21 mmol/l (22-26); Oxygen Saturation ABG 99.4 %; PO2 ABG 231 mmhg (83-108); Pt Ventilation O2% ROOM AIR; pH ABG 7.44 (7.35-7.45)
[2020-10-02 23:23] VITALS: O2SAT 97
[2020-10-02] MEDS: methylPREDNISolone Sod Succ/PF 125 MG/2 ML VIAL IVPUSH (23:35)
[2020-10-02] MEDS: diphenhydrAMINE HCL 50 MG/ML VIAL IVPUSH (23:36)
[2020-10-02 23:37] LABS: Alanine Aminotransferase 30 U/L (0-31); Albumin Level 3.7 g/dL (3.5-5.0); Alkaline Phosphatase 67 U/L (39-117); Anion Gap 14 (12-20); Aspartate Amino Transferase 19 U/L (5-31); Bilirubin Total 0.5 mg/dL (0.0-1.0); Blood Urea Nitrogen 17 mg/dL (9-16); Calcium 7.9 mg/dL (8.4-10.2); Carbon Dioxide 22 mmol/L (22-29); Chloride 108 mmol/L (96-108); Creatinine Clr Calc Pharmacy 73.3; Estimated Glomerular Filt Rate 59; Glucose Random 154 mg/dL (60-115); Sodium 140 mmol/L (135-145); Total Protein 5.6 g/dL (6.5-8.0)
[2020-10-02 23:44] LABS: B Type Natriuretic Peptide 12 pg/mL (<100); INTERNATIONAL NORM RATIO 1.1 (0.9-1.1); Prothrombin Time 12.8 SEC (10.8-13.0)
[2020-10-03 00:52] VITALS: BP 130/61; PULSE 110; RESP 19; O2SAT 96
== END 2020-10-03 01:02 | disposition home or self-care (01) ==
PROVIDERS: Emergency Provider Student in an Organized Health Care Education/Training Program
DX: J45.31 Mild persistent asthma with (acute) exacerbation (principal); I11.0 Hypertensive heart disease with heart failure; I50.9 Heart failure, unspecified; I48.91 Unspecified atrial fibrillation; Z86.718 Personal history of other venous thrombosis and embolism; Z79.01 Long term (current) use of anticoagulants
CPT/HCPCS: 36415; 71045; 80053; 82803; 83880; 85025; 85610; 94640; 94644; 96374; 96375; 99283; 99284; J1200; J2930

== ENCOUNTER 2020-10-03 22:07 | Emergency (ER) | payer MEDICARE, MEDICAID, SELFPAY ==
[2020-10-03 22:10] VITALS: BP 137/77; PULSE 113; RESP 24; TEMP 36.7; O2SAT 98; BMI 44.9
--- NOTE | 2020-10-03 22:26 | ED_ITS ---
HPI - Allergic Reaction General Chief complaint: Allergic Reaction Stated complaint: allergic reaction Time Seen by Provider: 10/03/20 22:21 Source: patient Mode of arrival: ambulatory Limitations: no limitations History of Present Illness HPI narrative: Patient with anxiety with somatization syndrome been here multiple times for asthma and allergic reactions asking for ketamine was seen here yesterday patient received blood a week ago and today noticed slight itching and redness of face her spouse give her epinephrine prior to arrival patient complaining of itching all over but there is no rash noticed except face redness which she is scratching patient asking for Benadryl a higher dose. Patient already taken Atarax at home complaint: allergic reaction Exposure: unknown Symptoms: rash, itching and facial swelling Severity: mild Treatment prior to arrival: epinephrine Previous Allergic Reaction History: prior ED visit(s) Related Data Home Medications Medication Instructions Recorded Confirmed alprazolam PO 09/03/20 diltiazem HCl 180 mg PO DAILY 09/03/20 09/03/20 fluoxetine 60 mg PO DAILY 09/03/20 09/03/20 montelukast 10 mg PO BEDTIME 09/03/20 09/03/20 morphine 15 mg PO Q6H PRN 09/03/20 09/03/20 risperidone 0.25 mg PO BEDTIME 09/03/20 09/03/20 topiramate 50 mg PO DAILY 09/03/20 09/03/20 trazodone 100 mg PO BEDTIME 09/03/20 09/03/20 warfarin 5 mg PO SUSA 09/03/20 09/04/20 warfarin 15 mg PO MOTUWETHFR 09/03/20 09/04/20 nitrofurantoin monohyd/m-cryst 100 mg PO BID 09/04/20 09/04/20 Previous Rx's Medication Instructions Recorded prednisone 20 mg PO DAILY #3 tab 09/05/20 prednisone 50 mg PO DAILY 4 Days #4 tab 10/03/20 Allergies Allergy/AdvReac Type Severity Reaction Status Date / Time dexamethasone [From DECADRON] Allergy Severe HIVES Verified 10/02/20 22:28 oxycodone [From PERCOCET] Allergy Severe HIVES Verified 10/02/20 22:28 azithromycin Allergy Intermediate ITCHING Verified 10/02/20 22:28 [From ZITHROMAX Z-XANDER] acetaminophen [Percocet] Allergy Unknown Unknown Verified 10/02/20 22:28 amoxicillin [AMOXICILLIN] Allergy Unknown UNKNOWN, Verified 10/02/20 22:28 hives, swelling budesonide [From SYMBICORT] Allergy Unknown UNKNOWN Verified 10/02/20 22: cefpodoxime [From VANTIN] Allergy Unknown UNKNOWN Verified 10/02/20 22:28 cefuroxime [From CEFTIN] Allergy Unknown UNKNOWN Verified 10/02/20 22:28 Cephalosporins Allergy Unknown UNKNOWN Verified 10/02/20 22:28 [CEPHALOSPORINS] ciprofloxacin [From CIPRO] Allergy Unknown UNKNOWN Verified 10/02/20 22: diazepam [DIAZEPAM] Allergy Unknown ITCHING Verified 10/02/20 22:28 diphtheria,pertussis Allergy Unknown Unknown Verified 10/02/20 22: (acellular),te [Adacel(Tdap Adolesn/Adult)(PF)] erythromycin base Allergy Unknown UNKNOWN Verified 10/02/20 22:28 [ERYTHROMYCIN BASE] fluticasone [Advair Diskus] Allergy Unknown Unknown Verified 10/02/20 22:28 formoterol [From SYMBICORT] Allergy Unknown UNKNOWN Verified 10/02/20 22: hydrocodone [From VICODIN] Allergy Unknown unknown Verified 10/02/20 22:28 Iodinated Contrast Media Allergy Unknown UNKNOWN Verified 10/02/20 22:28 [CONTRAST, IV] levofloxacin [From LEVAQUIN] Allergy Unknown UNKNOWN Verified 10/02/20 22:28 penicillin G Allergy Unknown Unknown Verified 10/02/20 22:28 penicillin V Allergy Unknown Unknown Verified 10/02/20 22:28 Penicillins [PENICILLINS] Allergy Unknown UNKNOWN Verified 10/02/20 22:28 salmeterol [Advair Diskus] Allergy Unknown Unknown Verified 10/02/20 22:28 sertraline [From ZOLOFT] Allergy Unknown SUICIDAL Verified 10/02/20 22:28 Sulfa (Sulfonamide Allergy Unknown hives Verified 10/02/20 22:28 Antibiotics) tetanus and diphtheria Allergy Unknown UNKNOWN Verified 10/02/20 22:28 toxoids [TETANUS & DIPHTHERIA TOXOIDS] Vantin Allergy Unknown Unknown Verified 10/02/20 22:28 ketorolac [From TORADOL] AdvReac Mild ITCHING Verified 10/02/20 22:28 Ceftin Allergy Unknown Unknown Uncoded 10/02/20 22:28 IV dye Allergy Unknown Unknown Uncoded 10/02/20 22:28 Symbicort Allergy Unknown Unknown Uncoded 10/02/20 22:28 Tetanus Allergy Unknown Unknown Uncoded 10/02/20 22:28 Erythromycin Allergy Unknown Uncoded 10/02/20 22:28 Review of Systems Review of Systems: REVIEW OF SYSTEMS: Pertinent positives and negatives are stated above in the history. GEN: no fevers, chills, fatigue HEENT: no nasal congestion, sore throat, ear pain NEURO: no headache, dizziness, focal weakness PULM: no cough, shortness of breath CV: no chest pain, palpitations, LE edema ABD: no abdominal pain, nausea, vomiting, diarrhea : no dysuria, urgency, frequency SKIN: Erythematous rash on the face ROS otherwise negative x 10 [facility] Past Medical History Medical History Anxiety Asthma Atrial fibrillation CHF (congestive heart failure) Depression DVT (deep venous thrombosis) Hypertension Morbid obesity Social History Social History Household Members: Family Housing: House Alcohol intake: unknown Smoking Status: Former smoker Second Hand Smoke Exposure: No Advance Directives: No Advance Directives Information Provided: Yes service: No Current occupational status: unemployed Physical Exam Vital Signs: Vital Signs: Last Vital Signs Temp 98.0 F 10/03/20 22:10 Pulse 113 H 10/03/20 22:10 Resp 24 H 10/03/20 22:10 BP 137/77 10/03/20 22:10 Pulse Ox 98 10/03/20 22:10 Body Mass Index 44.9 Appearance: Alert. Oriented X3. Very anxious scratching her face with erythema of the face Eyes: Pupils equal, round and reactive to light. ENT: Pharynx normal. No tongue or lip swelling uvula is normal Neck: Normal inspection. Neck supple. CVS: Normal heart rate and rhythm. Pulses normal. Respiratory: No respiratory distress. Breath sounds normal. Abdomen: Soft and nontender. Skin: Skin warm and dry. Normal skin color. Normal skin turgor. Erythematous rash on the face Extremities: No lower extremity edema. Good range of movement Neuro: Oriented X 3. No motor deficit. No sensory deficit. MDM - Allergic Reaction MDM Narrative Medical decision making narrative: Patient with possible allergic reaction likely more anxiety induced scratching and rash gave her Benadryl and Pepcid will discharge her home, patient feeling better now Discharge Plan Discharge Clinical Impression: Anxiety Allergic reaction Qualifiers: Encounter type: initial encounter Qualified Code(s): T78.40XA - Allergy, unspecified, initial encounter Patient Disposition: Home, Self-Care Instructions: Allergies (ED) Additional Instructions: Taking medication as advised, take anxiety medication and follow-up with PCP Prescriptions: No Action prednisone 50 mg tablet 50 mg PO DAILY 4 Days Qty: 4 RF: 0 diltiazem HCl 180 mg Capsule,Extended Release 24 Hr 180 mg PO DAILY RF: 0 alprazolam 1 mg tablet PO RF: 0 risperidone 0.25 mg Tablet 0.25 mg PO BEDTIME RF: 0 montelukast 10 mg Tablet 10 mg PO BEDTIME RF: 0 topiramate 50 mg Tablet 50 mg PO DAILY RF: 0 fluoxetine 60 mg Tablet 60 mg PO DAILY RF: 0 warfarin 10 mg Tablet 15 mg PO MOTUWETHFR RF: 0 trazodone 100 mg Tablet 100 mg PO BEDTIME RF: 0 warfarin 5 mg Tablet 5 mg PO SUSA RF: 0 morphine 15 mg Tablet 15 mg PO Q6H PRN (Reason: Pain) RF: 0 nitrofurantoin monohyd/m-cryst 100 mg capsule 100 mg PO BID RF: 0 prednisone 20 mg tablet 20 mg PO DAILY Qty: 3 RF: 0
[2020-10-03] MEDS: diphenhydrAMINE HCL 50 MG/ML VIAL IM (22:46)
[2020-10-03] MEDS: Famotidine 20 MG TABLET PO (22:46)
== END 2020-10-03 23:16 | disposition home or self-care (01) ==
PROVIDERS: Emergency Provider Internal Medicine
DX: L23.9 Allergic contact dermatitis, unspecified cause (principal); F41.1 Generalized anxiety disorder; F43.0 Acute stress reaction; Z79.899 Other long term (current) drug therapy; Z87.891 Personal history of nicotine dependence
CPT/HCPCS: 96372; 99283; 99284; J1200

== ENCOUNTER 2020-10-30 16:12 | Emergency (ER) | payer MEDICARE, MEDICAID, SELFPAY | END 2020-10-30 20:01 | disposition left against medical advice (07) | PROVIDERS: Emergency Provider Emergency Medicine; PCP Family Medicine | DX: R06.02 Shortness of breath (principal) ==

== ENCOUNTER 2020-11-12 16:13 | Emergency (ER) | payer MEDICARE, MEDICAID, SELFPAY ==
[2020-11-12 16:22] VITALS: BP 131/64; PULSE 98; RESP 18; TEMP 36.8; O2SAT 97; BMI 44.9
[2020-11-12 17:26] VITALS: BP 111/69; PULSE 92; RESP 17; TEMP 37; O2SAT 98
--- NOTE | 2020-11-12 17:41 | ED_ITS ---
HPI - Ear Problem General Chief complaint: Ear Problems Stated complaint: ear problem Time Seen by Provider: 11/12/20 20:51 Source: patient Mode of arrival: ambulatory Limitations: no limitations History of Present Illness HPI Narrative: 49-year-old female presents with left ear pain radiating down to her neck. Was seen at [facility] last week and given doxycycline for otitis media as well as perforated tympanic membrane. She states it difficult to move her neck, difficult to chew and is asking for pain management. She is crying at this time, but denies any other symptoms. MD Complaint: ear pain Location: bilateral Duration: constant Severity: severe Relieving factors: nothing Exacerbating factors: chewing, position of head and palpation Context: recent illness Discharge from ear: yes - clear Associated symptoms ear: headache, external ear tenderness and neck pain Treatment prior to arrival: oral analgesic Related Data Home Medications Medication Instructions Recorded Confirmed alprazolam PO 09/03/20 diltiazem HCl 180 mg PO DAILY 09/03/20 09/03/20 fluoxetine 60 mg PO DAILY 09/03/20 09/03/20 montelukast 10 mg PO BEDTIME 09/03/20 09/03/20 morphine 15 mg PO Q6H PRN 09/03/20 09/03/20 risperidone 0.25 mg PO BEDTIME 09/03/20 09/03/20 topiramate 50 mg PO DAILY 09/03/20 09/03/20 trazodone 100 mg PO BEDTIME 09/03/20 09/03/20 warfarin 5 mg PO SUSA 09/03/20 09/04/20 warfarin 15 mg PO MOTUWETHFR 09/03/20 09/04/20 nitrofurantoin monohyd/m-cryst 100 mg PO BID 09/04/20 09/04/20 Previous Rx's Medication Instructions Recorded prednisone 20 mg PO DAILY #3 tab 09/05/20 prednisone 50 mg PO DAILY 4 Days #4 tab 10/03/20 doxycycline monohydrate 100 mg PO BID 10 Days #20 cap 11/12/20 Allergies Allergy/AdvReac Type Severity Reaction Status Date / Time dexamethasone [From DECADRON] Allergy Severe HIVES Verified 10/02/20 22:28 oxycodone [From PERCOCET] Allergy Severe HIVES Verified 10/02/20 22:28 azithromycin Allergy Intermediate ITCHING Verified 10/02/20 22:28 [From ZITHROMAX Z-XANDER] acetaminophen [Percocet] Allergy Unknown Unknown Verified 10/02/20 22:28 amoxicillin [AMOXICILLIN] Allergy Unknown UNKNOWN, Verified 10/02/20 22: hives, swelling budesonide [From SYMBICORT] Allergy Unknown UNKNOWN Verified 10/02/20 22: cefpodoxime [From VANTIN] Allergy Unknown UNKNOWN Verified 10/02/20 22: cefuroxime [From CEFTIN] Allergy Unknown UNKNOWN Verified 10/02/20 22: Cephalosporins Allergy Unknown UNKNOWN Verified 10/02/20 22:28 [CEPHALOSPORINS] ciprofloxacin [From CIPRO] Allergy Unknown UNKNOWN Verified 10/02/20 22: diazepam [DIAZEPAM] Allergy Unknown ITCHING Verified 10/02/20: diphtheria,pertussis Allergy Unknown Unknown Verified 10/02/20: (acellular),te [Adacel(Tdap Adolesn/Adult)(PF)] erythromycin base Allergy Unknown UNKNOWN Verified 10/02/20 22: [ERYTHROMYCIN BASE] fluticasone [Advair Diskus] Allergy Unknown Unknown Verified 10/02/20 22: formoterol [From SYMBICORT] Allergy Unknown UNKNOWN Verified 10/02/20 22: hydrocodone [From VICODIN] Allergy Unknown unknown Verified 10/02/20 22: Iodinated Contrast Media Allergy Unknown UNKNOWN Verified 10/02/20 22:28 [CONTRAST, IV] levofloxacin [From LEVAQUIN] Allergy Unknown UNKNOWN Verified 10/02/20 22:28 penicillin G Allergy Unknown Unknown Verified 10/02/20 22:28 penicillin V Allergy Unknown Unknown Verified 10/02/20 22:28 Penicillins [PENICILLINS] Allergy Unknown UNKNOWN Verified 10/02/20 22:28 salmeterol [Advair Diskus] Allergy Unknown Unknown Verified 10/02/20 22:28 sertraline [From ZOLOFT] Allergy Unknown SUICIDAL Verified 10/02/20: Sulfa (Sulfonamide Allergy Unknown hives Verified 10/02/20 22:28 Antibiotics) tetanus and diphtheria Allergy Unknown UNKNOWN Verified 10/02/20 22:28 toxoids [TETANUS & DIPHTHERIA TOXOIDS] Vantin Allergy Unknown Unknown Verified 10/02/20 22:28 ketorolac [From TORADOL] AdvReac Mild ITCHING Verified 10/02/20 22:28 Ceftin Allergy Unknown Unknown Uncoded 10/02/20 22:28 IV dye Allergy Unknown Unknown Uncoded 10/02/20 22:28 Symbicort Allergy Unknown Unknown Uncoded 10/02/20 22:28 Tetanus Allergy Unknown Unknown Uncoded 10/02/20 22:28 Erythromycin Allergy Unknown Uncoded 10/02/20 22:28 Review of Systems Review of Systems: Constitutional: No Fever, No Chills ENT/Mouth: Positive bilateral Ear Pain, No Hoarseness, No sore throat Eyes: No Eye Pain, No Swelling, No Redness, No Foreign Body Cardiovascular: No Chest Pain, No SOB Respiratory: No Cough, No Dyspnea Gastrointestinal: No Nausea, No Vomiting, No Diarrhea, No abdominal Pain Genitourinary: No Dysuria, No Hematuria Musculoskeletal: Positive soft tissue neck pain, No Myalgias, No Joint Swelling Skin: No Skin lacerations, No rash Neuro: No Weakness, No Numbness, No Paresthesias, No Loss of Consciousness, No Dizziness, No Headache Psych: No Anxiety/Panic, No Depression Heme/Lymph: no easy bruising, no Lymphadenopathy Endocrine: No Polyuria, No Polydipsia PMFSH Past Medical History Medical History Anxiety Asthma Atrial fibrillation CHF (congestive heart failure) Depression DVT (deep venous thrombosis) Hypertension Morbid obesity Social History Social History Household Members: Family Housing: House Alcohol intake: unknown Smoking Status: Former smoker Second Hand Smoke Exposure: No Use of substances other than those prescribed or required for medical reasons: No Advance Directives: No Advance Directives Information Provided: No service: No Current occupational status: unemployed Physical Exam Vital Signs: Vital Signs: Last Vital Signs Temp 97.3 F 11/12/20 20:00 Pulse 88 11/12/20 20:00 Resp 16 11/12/20 20:00 BP 119/60 11/12/20 20:00 Pulse Ox 96 11/12/20 20:00 Body Mass Index 44.9 Appearance: Alert. Oriented X3. No acute distress. Eyes: Pupils equal, round and reactive to light. ENT: Pharynx normal. Right tympanic membrane and auditory canal normal, left tympanic membrane small perforation noted in the 7 o'clock position, small drop of dried blood noted on the membrane, no purulent drainage noted. No lymphadenopathy, diffusely tender to the mastoid, sternocleidomastoid muscles. Neck: Normal inspection. Neck supple. CVS: Normal heart rate and rhythm. Pulses normal. Respiratory: No respiratory distress. Breath sounds normal. Abdomen: Soft and nontender. Skin: Skin warm and dry. Normal skin color. Normal skin turgor. Extremities: No lower extremity edema. Neuro: No motor deficit. No sensory deficit. Course Course Course Narrative: 49-year-old female with significant past medical history of chronic pain, asthma, anxiety, history of DVT on Coumadin, and multitude of allergies presents with bilateral ear pain, left worse than the right. Was treated with doxycycline when she was seen at [facility] last week. She is concerned because she is having drainage from the ear and is complaining of 10/[address] scan of head and neck to rule out mastoiditis as she is tender to the mastoid bone on palpation. She is able to open and close her mouth, is able to eat without difficulty but states that moving her mouth causes her significant pain. She states that she cannot lay on the left side because of the pain. Pain management with 4 mg of morphine and Benadryl 50 mg in preparation for IV dye. Labs note mild hypokalemia will replete with 40 mEq p.o.. At 8:02 p.m. Patient has hair extensions and has significant amounts of metal adhering the extensions to her natural hair. We cannot remove these extensions without pliers and she also does not want the extensions removed. CT scan would be inconclusive secondary to the artifact that metal will give off. Will change the CT scan of head and neck to x-rays. Patient does understand the x-rays are not as detailed as the CT scan. X-rays are negative for acute findings. Patient advised to follow-up with ENT, again requesting more pain medications. Detailed discussion regarding proper use of Pain medication, she was advised to follow up with her primary care physician and her pain management for further prescriptions. Patient disappointed but did understand pain medication policies. Patient verbalized understanding of and agrees to plan of care discharge home. Consultations Time: 20:02 MDM - Ear Differential Diagnosis Differential diagnosis: Likely otitis externa, otitis media and ruptured TM Medical Records Attestation: I reviewed the patient's medical records. Lab Data Attestation: I reviewed the patient's lab results. Result diagrams: 11/12/20 18:20 11/12/20 18:20 Labs: Lab Results 11/12/20 11/12/20 11/12/20 Range/Units 18:18 18:20 18:20 WBC 6.3 (4.8-10.8) X10*3/uL RBC 4.06 L (4.20-5.50) X10*6/uL Hgb 11.8 L (12.0-16.0) g/dl Hct 34.2 L (37-47) % MCV 84.2 (80-98) fL MCH 29.1 (27.0-33.0) pg MCHC 34.5 (31.0-35.0) g/dl RDW 15.8 (11.0-16.0) % Plt Count 263 D (160-400) X10*3/uL MPV 11.1 (9.4-12.3) fL Immature Gran % (Auto) 0.5 H (0.0-0.4) % Neut % (Auto) 56.1 (45-73) % Lymph % (Auto) 31.9 (20-40) % [place] % (Auto) 8.0 (2-11) % Eos % (Auto) 3.0 (0-4) % Baso % (Auto) 0.5 (0-2) % Lymph # (Auto) 2.0 (1.2-4.9) X10*3/uL [place] # (Auto) 0.5 (0.1-1.2) X10*3/uL Eos # (Auto) 0.2 (0.0-0.4) X10*3/uL Baso # (Auto) 0.0 (0.0-0.2) X10*3/uL Abs Immat Gran (auto) 0.03 (0.00-0.03) X10*3/uL Absolute Neuts (auto) 3.6 (2.0-8.3) X10*3/uL Absolute Nucleated RBC 0.000 (0.0-0.012) X10*3/uL Nucleated RBC % (auto) 0.0 (0.0-0.2) /100WBC PT 32.6 H D (10.8-13.0) SEC INR 2.7 H (0.9-1.1) APTT 52.0 H D (24.1-38.0) SEC Sodium 141 (135-145) mmol/L Potassium 3.1 L D (3.3-5.1) mmol/l Chloride 105 (96-108) mmol/L Carbon Dioxide 24 (22-29) mmol/L Anion Gap 15 (12-20) BUN 13 (9-16) mg/dL Creatinine 0.79 (0.5-1.4) mg/dL Estim Creat Clear Calc 92.8 Estimated GFR > 60 Random Glucose 95 D (60-115) mg/dL Calcium 8.4 D (8.4-10.2) mg/dL Imaging Data Soft tissue x-ray: Attestation: I personally reviewed and interpreted this imaging study as follows: Radiologist's impression: EXAMINATION: XR SOFT TISSUE NECK CLINICAL INDICATION: Left year pain COMPARISON: None TECHNIQUE: 2 views of the soft tissue neck were obtained. FINDINGS: The the nasopharyngeal, laryngeal airway is widely patent. The prevertebral soft tissues are normal. Degenerative disc changes with spondylosis C5-C6 disc level. No other bony abnormality seen. A left central port is noted with its tip in [facility] [place] XR/XR soft tissue neck IMPRESSION: Unremarkable exam soft tissue neck. Discharge Plan Discharge Clinical Impression: Otitis media Patient Disposition: Home, Self-Care Instructions: Ear Infection (ED), Warm Compress or Soak (ED) Additional Instructions: You were evaluated for recurrent otitis media with perforated tympanic membrane. Please follow-up with ENT. We prescribed doxycycline. Please take this medication as directed. Please follow-up with primary care physician and or pain management provider for pain medications. Thank you for choosing this emergency department for evaluation. Please follow-up with primary care physician as needed. Return to the emergency department for any new, concerning, or worsening symptoms. Prescriptions: New doxycycline monohydrate 100 mg capsule 100 mg PO BID 10 Days Qty: 20 RF: 0 No Action prednisone 50 mg tablet 50 mg PO DAILY 4 Days Qty: 4 RF: 0 diltiazem HCl 180 mg Capsule,Extended Release 24 Hr 180 mg PO DAILY RF: 0 alprazolam 1 mg tablet PO RF: 0 risperidone 0.25 mg Tablet 0.25 mg PO BEDTIME RF: 0 montelukast 10 mg Tablet 10 mg PO BEDTIME RF: 0 topiramate 50 mg Tablet 50 mg PO DAILY RF: 0 fluoxetine 60 mg Tablet 60 mg PO DAILY RF: 0 warfarin 10 mg Tablet 15 mg PO MOTUWETHFR RF: 0 trazodone 100 mg Tablet 100 mg PO BEDTIME RF: 0 warfarin 5 mg Tablet 5 mg PO SUSA RF: 0 morphine 15 mg Tablet 15 mg PO Q6H PRN (Reason: Pain) RF: 0 nitrofurantoin monohyd/m-cryst 100 mg capsule 100 mg PO BID RF: 0 prednisone 20 mg tablet 20 mg PO DAILY Qty: 3 RF: 0 Referrals: Cyril Silver [Physician] - 2 days (Left ear perforation) Interventions: ED Discharge Assessment Last Done: 11/12/20 21:26 Discharge Date/Time: 11/12/20 21:26
[2020-11-12 18:24] LABS: MANUAL DIFF FLAG NO
[2020-11-12 18:28] LABS: Basophils Percent Auto 0.5 % (0-2); Eosinophils Absolute Auto 0.2 X10*3/uL (0.0-0.4); Hematocrit 34.2 % (37-47); Hemoglobin 11.8 g/dl (12.0-16.0); Imm Gran Abs Auto 0.03 X10*3/uL (0.00-0.03); Imm Gran Pct Auto 0.5 % (0.0-0.4); Lymphocytes Percent Auto 31.9 % (20-40); Mean Corpuscular HGB Conc 34.5 g/dl (31.0-35.0); Mean Corpuscular Hemoglobin 29.1 pg (27.0-33.0); Mean Corpuscular Volume 84.2 fL (80-98); Mean Platelet Volume 11.1 fL (9.4-12.3); Monocytes Absolute Auto 0.5 X10*3/uL (0.1-1.2); Neutrophils Absolute Auto 3.6 X10*3/uL (2.0-8.3); Neutrophils Percent Auto 56.1 % (45-73); Platelet Count 263 X10*3/uL (160-400); Red Blood Count 4.06 X10*6/uL (4.20-5.50); Red Cell Distribution Width 15.8 % (11.0-16.0); White Blood Count 6.3 X10*3/uL (4.8-10.8)
[2020-11-12 18:32] LABS: INTERNATIONAL NORM RATIO 2.7 (0.9-1.1); Prothrombin Time 32.6 SEC (10.8-13.0)
[2020-11-12] MEDS: diphenhydrAMINE HCL 50 MG/ML VIAL IVPUSH (18:44)
[2020-11-12] MEDS: Morphine Sulfate 4 MG/ML CARTRIDGE IVPUSH (18:44)
[2020-11-12 18:45] VITALS: BP 128/62; PULSE 87; RESP 17; O2SAT 96
[2020-11-12 18:52] LABS: Anion Gap 15 (12-20); Blood Urea Nitrogen 13 mg/dL (9-16); Calcium 8.4 mg/dL (8.4-10.2); Carbon Dioxide 24 mmol/L (22-29); Chloride 105 mmol/L (96-108); Creatinine Clr Calc Pharmacy 92.8; Estimated Glomerular Filt Rate > 60; Glucose Random 95 mg/dL (60-115); Potassium 3.1 mmol/l (3.3-5.1); Sodium 141 mmol/L (135-145)
--- NOTE | 2020-11-12 19:43 | PC.NURSE ---
PROVIDER AWARE OF PT C/O PAIN. NO ADDITIONAL PAIN MED AT THIS TIME. PT AWARE. RESTING IN BED, APPEARS COMFORTABLE.
[2020-11-12 20:00] VITALS: BP 119/60; PULSE 88; RESP 16; TEMP 36.3; O2SAT 96
--- NOTE | 2020-11-12 20:03 | XR_ITS ---
EXAMINATION: XR SOFT TISSUE NECK CLINICAL INDICATION: Left year pain COMPARISON: None TECHNIQUE: 2 views of the soft tissue neck were obtained. FINDINGS: The the nasopharyngeal, laryngeal airway is widely patent. The prevertebral soft tissues are normal. Degenerative disc changes with spondylosis C5-C6 disc level. No other bony abnormality seen. A left central port is noted with its tip in SVC XR/XR soft tissue neck IMPRESSION: Unremarkable exam soft tissue neck.
[2020-11-12] MEDS: Heparin Sodium,Porcine Flush 500 UNIT/5 ML SYRINGE IVFLUSH (21:17)
[2020-11-12] MEDS: HYDROmorphone HCl 2 MG TABLET PO (21:17)
== END 2020-11-12 21:26 | disposition home or self-care (01) ==
PROVIDERS: Nurse Practitioner Family; Emergency Provider Emergency Medicine Emergency Medical Services; PCP Family Medicine
DX: H66.92 Otitis media, unspecified, left ear (principal); H92.02 Otalgia, left ear; R51.9 Headache, unspecified; M54.2 Cervicalgia; Z79.899 Other long term (current) drug therapy; Z87.891 Personal history of nicotine dependence; Z79.01 Long term (current) use of anticoagulants
CPT/HCPCS: 36415; 70360; 80048; 85025; 85610; 85730; 96374; 96375; 99284; J1200; J1642; J2270

== ENCOUNTER 2020-12-02 21:32 | Emergency (ER) | payer MEDICARE, MEDICAID, SELFPAY ==
--- NOTE | 2020-12-02 | ECG_ITS ---
Test Reason : SHORNESS OF BREATH Blood Pressure : / mmHG Vent. Rate : 108 BPM Atrial Rate : 108 BPM P-R Int : 152 ms QRS Dur : 072 ms QT Int : 362 ms P-R-T Axes : 046 -20 043 degrees QTc Int : 485 ms Sinus tachycardia Inferior infarct , age undetermined Anterior infarct (cited on or before 03-MAY-2019) Abnormal ECG When compared with ECG of 03-AUG-2020 20:00, No significant change was found Referred By: Generic ED Physician Electronically Signed By:LITTLE ROONEY MD
[2020-12-02 21:37] VITALS: BP 124/55; PULSE 110; RESP 22; TEMP 36.6; O2SAT 97; BMI 42.3
[2020-12-02] MEDS: 0.9 % Sodium Chloride 1,000 ML 999 ML IVCONT (22:25)
--- NOTE | 2020-12-02 22:37 | ED_ITS ---
HPI - Arrhythmia/Palpitations General Chief Complaint: Chest Pain Stated Complaint: Palpitations Time Seen by Provider: 12/02/20 22:02 Source: patient Mode of arrival: ambulatory Limitations: no limitations History of Present Illness HPI narrative: 50-year-old female history significant for asthma (with frequent exacerbation, requiring intubation in the past), tracheal malacia, anxiety, depression, DVT (recurrent on Coumadin), patient presented today with feeling palpitation, feeling anxious, chest wall cramps. Symptoms started few hours ago, has been constant since it started, described as moderate, patient felt the same when last week went to [facility] and found to have low potassium (record was requested from [facility]). Related Data Home Medications Medication Instructions Recorded Confirmed alprazolam PO 09/03/20 diltiazem HCl 180 mg PO DAILY 09/03/20 09/03/20 fluoxetine 60 mg PO DAILY 09/03/20 09/03/20 montelukast 10 mg PO BEDTIME 09/03/20 09/03/20 morphine 15 mg PO Q6H PRN 09/03/20 09/03/20 risperidone 0.25 mg PO BEDTIME 09/03/20 09/03/20 topiramate 50 mg PO DAILY 09/03/20 09/03/20 trazodone 100 mg PO BEDTIME 09/03/20 09/03/20 warfarin 5 mg PO SUSA 09/03/20 09/04/20 warfarin 15 mg PO MOTUWETHFR 09/03/20 09/04/20 nitrofurantoin monohyd/m-cryst 100 mg PO BID 09/04/20 09/04/20 Previous Rx's Medication Instructions Recorded prednisone 20 mg PO DAILY #3 tab 09/05/20 prednisone 50 mg PO DAILY 4 Days #4 tab 10/03/20 doxycycline monohydrate 100 mg PO BID 10 Days #20 cap 11/12/20 Allergies Allergy/AdvReac Type Severity Reaction Status Date / Time dexamethasone [From DECADRON] Allergy Severe HIVES Verified 12/02/20 21:41 oxycodone [From PERCOCET] Allergy Severe HIVES Verified 12/02/20 21:41 azithromycin Allergy Intermediate ITCHING Verified 12/02/20 21:41 [From ZITHROMAX Z-XANDER] acetaminophen [Percocet] Allergy Unknown Unknown Verified 12/02/20 21:41 amoxicillin [AMOXICILLIN] Allergy Unknown UNKNOWN, Verified 12/02/20 21:41 hives, swelling budesonide [From SYMBICORT] Allergy Unknown UNKNOWN Verified 12/02/20 21:41 cefpodoxime [From VANTIN] Allergy Unknown UNKNOWN Verified 12/02/20 21:41 cefuroxime [From CEFTIN] Allergy Unknown UNKNOWN Verified 12/02/20 21:41 Cephalosporins Allergy Unknown UNKNOWN Verified 12/02/20 21:41 [CEPHALOSPORINS] ciprofloxacin [From CIPRO] Allergy Unknown UNKNOWN Verified 12/02/20 21:41 diazepam [DIAZEPAM] Allergy Unknown ITCHING Verified 12/02/20 21:41 diphtheria,pertussis Allergy Unknown Unknown Verified 12/02/20 21:41 (acellular),te [Adacel(Tdap Adolesn/Adult)(PF)] erythromycin base Allergy Unknown UNKNOWN Verified 12/02/20 21:41 [ERYTHROMYCIN BASE] fluticasone [Advair Diskus] Allergy Unknown Unknown Verified 12/02/20 21:41 formoterol [From SYMBICORT] Allergy Unknown UNKNOWN Verified 12/02/20 21:41 hydrocodone [From VICODIN] Allergy Unknown unknown Verified 12/02/20 21:41 Iodinated Contrast Media Allergy Unknown UNKNOWN Verified 12/02/20 21:41 [CONTRAST, IV] levofloxacin [From LEVAQUIN] Allergy Unknown UNKNOWN Verified 12/02/20 21:41 penicillin G Allergy Unknown Unknown Verified 12/02/20 21:41 penicillin V Allergy Unknown Unknown Verified 12/02/20 21:41 Penicillins [PENICILLINS] Allergy Unknown UNKNOWN Verified 12/02/20 21:41 salmeterol [Advair Diskus] Allergy Unknown Unknown Verified 12/02/20 21:41 sertraline [From ZOLOFT] Allergy Unknown SUICIDAL Verified 12/02/20 21:41 Sulfa (Sulfonamide Allergy Unknown hives Verified 12/02/20 21:41 Antibiotics) tetanus and diphtheria Allergy Unknown UNKNOWN Verified 12/02/20 21:41 toxoids [TETANUS & DIPHTHERIA TOXOIDS] Vantin Allergy Unknown Unknown Verified 12/02/20 21:41 ketorolac [From TORADOL] AdvReac Mild ITCHING Verified 12/02/20 21:41 Ceftin Allergy Unknown Unknown Uncoded 12/02/20 21:41 IV dye Allergy Unknown Unknown Uncoded 12/02/20 21:41 Symbicort Allergy Unknown Unknown Uncoded 12/02/20 21:41 Tetanus Allergy Unknown Unknown Uncoded 12/02/20 21:41 Erythromycin Allergy Unknown Uncoded 12/02/20 21:41 Review of Systems Review of Systems: All other systems are reviewed and are negative Constitutional: Reports as per HPI and Reports no additional constitutional complaints Eyes: Reports as per HPI and Reports no additional eye complaints Reports system reviewed and no additional complaints, except as documented Cardiovascular: Reports as per HPI and Reports no additional cardiovascular complaints Respiratory: Reports as per HPI and Reports no additional respiratory complaints Gastrointestinal: Reports as per HPI and Reports no additional gastrointestinal complaints Genitourinary: Reports no additional female genitourinary complaints Musculoskeletal: Reports no additional musculoskeletal complaints Skin/Breast: Reports system reviewed and no additional complaints, except as d ocu Psychiatric: Reports no additional psychiatric complaints Endocrine: Reports no additional endocrine complaints Hematologic/Lymphatic: Reports no additional hematologic/lymphatic complaints Allergic/Immunologic: Reports no additional allergic/immunologic complaints Reports system reviewed and no additional complaints, except as documented and Reports Abnormal speech present [facility] Past Medical History Medical History Anxiety Asthma Atrial fibrillation CHF (congestive heart failure) Depression DVT (deep venous thrombosis) Hypertension Morbid obesity Social History Social History Household Members: Family Housing: House Alcohol intake: unknown Smoking Status: Current every day smoker Second Hand Smoke Exposure: No Use of substances other than those prescribed or required for medical reasons: No Advance Directives: No Advance Directives Information Provided: No service: No Current occupational status: unemployed Physical Exam Vital Signs: Vital Signs: Last Vital Signs Temp 97.9 F 12/02/20 21:37 Pulse 90 12/03/20 00:00 Resp 18 12/03/20 00:00 BP 120/54 L 12/03/20 00:00 Pulse Ox 96 12/03/20 00:00 Body Mass Index 42.3 Vital signs have been reviewed as normal and appeared to be correct. Blood pressure in the high range. Heart rate tachycardia. Respiration rate normal. Temperature normal. Oxygen saturation normal. Appearance: Alert. Oriented X3. No acute distress. Appear very anxious. Head: Normal external exam. Normocephalic. Atraumatic. No Salter signs noted. No raccoon eyes noted Eyes: PERRLA. EOMI. Conjunctiva and sclera normal. Eyelids normal. ENT: EAC normal. TM's Normal. Pharynx normal. Uvula midline. Moist mucous membranes. No trismus noted. No drooling noted. No muffled voice noted. Neck: Normal inspection. Neck supple. FROM. No adenopathy. Thyroid Normal. No meningeal signs. No neck mass noted. CVS: Normal heart rate and rhythm. Heart sound normal. No murmurs noted. Pulses normal throughout. Respiratory: No respiratory distress. Painless inspiration. Breath sounds normal. No wheezes/rales/rhonchi noted. Chest nontender. No accessory muscle usage noted or decreased air movement noted. Abdomen: Soft and nontender. Bowel sounds normal in all 4 quadrants. No distention noted. No organomegaly noted. No visible injury noted. Back: No CVA tenderness. Full range of motion noted. Skin: Skin warm and dry. Normal skin color. Normal skin turgor. No rashes/lesions/lacerations noted. Extremities: No lower extremity edema. Extremities exhibit normal range of motion. Extremities nontender. Neuro: Oriented X 3. No motor deficit. No sensory deficit. Reflexes normal. Course Course Course Narrative: Assessment and plan. This is a 50-year-old female known history of asthma, anxiety, recent hospitalization for hypokalemia, patient presented today with palpitation and shortness of breath, heart rate now is 90 beats per minute, lung exam is unremarkable for any pathology, labs at her baseline. Slight hypokalemia was replaced by p.o. potassium. Patient is asymptomatic now will discharge to follow-up with PCP. COVID is negative today. MDM - Arrhythmia/Palpitations Lab Data Attestation: I reviewed the patient's lab results. Result diagrams: 12/02/20 22:21 12/02/20 22:21 Labs: Lab Results 12/02/20 12/02/20 12/02/20 Range/Units 22:21 22:21 22:21 WBC 6.4 (4.8-10.8) X10*3/uL RBC 4.02 L (4.20-5.50) X10*6/uL Hgb 11.4 L (12.0-16.0) g/dl Hct 34.5 L (37-47) % MCV 85.8 (80-98) fL MCH 28.4 (27.0-33.0) pg MCHC 33.0 (31.0-35.0) g/dl RDW 16.1 H (11.0-16.0) % Plt Count 249 (160-400) X10*3/uL MPV 11.8 (9.4-12.3) fL Immature Gran % (Auto) 0.5 H (0.0-0.4) % Neut % (Auto) 59.3 (45-73) % Lymph % (Auto) 29.6 (20-40) % [place] % (Auto) 7.6 (2-11) % Eos % (Auto) 2.7 (0-4) % Baso % (Auto) 0.3 (0-2) % Lymph # (Auto) 1.9 (1.2-4.9) X10*3/uL [place] # (Auto) 0.5 (0.1-1.2) X10*3/uL Eos # (Auto) 0.2 (0.0-0.4) X10*3/uL Baso # (Auto) 0.0 (0.0-0.2) X10*3/uL Abs Immat Gran (auto) 0.03 (0.00-0.03) X10*3/uL Absolute Neuts (auto) 3.8 (2.0-8.3) X10*3/uL Absolute Nucleated RBC 0.000 (0.0-0.012) X10*3/uL Nucleated RBC % (auto) 0.0 (0.0-0.2) /100WBC PT 23.0 H D (10.8-13.0) SEC INR 1.9 H (0.9-1.1) APTT 65.5 H* D (24.1-38.0) SEC D-Dimer < 200 NG/ML Sodium 142 (135-145) mmol/L Potassium 3.3 (3.3-5.1) mmol/L Chloride 107 (96-108) mmol/L Carbon Dioxide 23 (22-29) mmol/L Anion Gap 15 (12-20) BUN 13 (9-16) mg/dL Creatinine 1.13 (0.5-1.4) mg/dL Estim Creat Clear Calc 62.0 Estimated GFR 51 Random Glucose 135 H D (60-115) mg/dL Calcium 8.5 (8.4-10.2) mg/dL Total Bilirubin 0.5 (0.0-1.0) mg/dL Direct Bilirubin < 0.2 (0.0-0.5) mg/dL AST 20 (5-31) U/L ALT 27 (0-31) U/L Alkaline Phosphatase 99 D (39-117) U/L Troponin I High Sens (<3.5-17.0) ng/L B-Natriuretic Peptide (<100) pg/mL Total Protein 6.3 L (6.5-8.0) g/dL Albumin 4.1 (3.5-5.0) g/dL Lipase 79 H (8-78) U/L COVID-19 (ELYSE) (Negative) COVID-19 Clin Com 12/02/20 12/02/20 Range/Units 22:21 22:23 WBC (4.8-10.8) X10*3/uL RBC (4.20-5.50) X10*6/uL Hgb (12.0-16.0) g/dl Hct (37-47) % MCV (80-98) fL MCH (27.0-33.0) pg MCHC (31.0-35.0) g/dl RDW (11.0-16.0) % Plt Count (160-400) X10*3/uL MPV (9.4-12.3) fL Immature Gran % (Auto) (0.0-0.4) % Neut % (Auto) (45-73) % Lymph % (Auto) (20-40) % [place] % (Auto) (2-11) % Eos % (Auto) (0-4) % Baso % (Auto) (0-2) % Lymph # (Auto) (1.2-4.9) X10*3/uL [place] # (Auto) (0.1-1.2) X10*3/uL Eos # (Auto) (0.0-0.4) X10*3/uL Baso # (Auto) (0.0-0.2) X10*3/uL Abs Immat Gran (auto) (0.00-0.03) X10*3/uL Absolute Neuts (auto) (2.0-8.3) X10*3/uL Absolute Nucleated RBC (0.0-0.012) X10*3/uL Nucleated RBC % (auto) (0.0-0.2) /100WBC PT (10.8-13.0) SEC INR (0.9-1.1) APTT (24.1-38.0) SEC D-Dimer NG/ML Sodium (135-145) mmol/L Potassium (3.3-5.1) mmol/L Chloride (96-108) mmol/L Carbon Dioxide (22-29) mmol/L Anion Gap (12-20) BUN (9-16) mg/dL Creatinine (0.5-1.4) mg/dL Estim Creat Clear Calc Estimated GFR Random Glucose (60-115) mg/dL Calcium (8.4-10.2) mg/dL Total Bilirubin (0.0-1.0) mg/dL Direct Bilirubin (0.0-0.5) mg/dL AST (5-31) U/L ALT (0-31) U/L Alkaline Phosphatase (39-117) U/L Troponin I High Sens < 3.5 (<3.5-17.0) ng/L B-Natriuretic Peptide < 10 (<100) pg/mL Total Protein (6.5-8.0) g/dL Albumin (3.5-5.0) g/dL Lipase (8-78) U/L COVID-19 (ELYSE) Negative (Negative) COVID-19 Clin Com See Note ECG Data Interpretation: Sinus tachycardia at 108 beats per minutes, normal axis deviatio n, normal intervals, left atrial enlargement, no change from old EKG. Discharge Plan Discharge Clinical Impression: Anxiety Patient Disposition: Home, Self-Care Instructions: Anxiety (ED) Prescriptions: No Action prednisone 50 mg tablet 50 mg PO DAILY 4 Days Qty: 4 RF: 0 doxycycline monohydrate 100 mg capsule 100 mg PO BID 10 Days Qty: 20 RF: 0 diltiazem HCl 180 mg Capsule,Extended Release 24 Hr 180 mg PO DAILY RF: 0 alprazolam 1 mg tablet PO RF: 0 risperidone 0.25 mg Tablet 0.25 mg PO BEDTIME RF: 0 montelukast 10 mg Tablet 10 mg PO BEDTIME RF: 0 topiramate 50 mg Tablet 50 mg PO DAILY RF: 0 fluoxetine 60 mg Tablet 60 mg PO DAILY RF: 0 warfarin 10 mg Tablet 15 mg PO MOTUWETHFR RF: 0 trazodone 100 mg Tablet 100 mg PO BEDTIME RF: 0 warfarin 5 mg Tablet 5 mg PO SUSA RF: 0 morphine 15 mg Tablet 15 mg PO Q6H PRN (Reason: Pain) RF: 0 nitrofurantoin monohyd/m-cryst 100 mg capsule 100 mg PO BID RF: 0 prednisone 20 mg tablet 20 mg PO DAILY Qty: 3 RF: 0 Referrals: Physician,Unknown [Primary Care Provider] - 2 days
[2020-12-02 22:40] LABS: MANUAL DIFF FLAG NO
[2020-12-02 22:49] LABS: Basophils Percent Auto 0.3 % (0-2); Eosinophils Absolute Auto 0.2 X10*3/uL (0.0-0.4); Eosinophils Percent Auto 2.7 % (0-4); Hematocrit 34.5 % (37-47); Hemoglobin 11.4 g/dl (12.0-16.0); Imm Gran Abs Auto 0.03 X10*3/uL (0.00-0.03); Imm Gran Pct Auto 0.5 % (0.0-0.4); Lymphocytes Absolute Auto 1.9 X10*3/uL (1.2-4.9); Lymphocytes Percent Auto 29.6 % (20-40); Mean Corpuscular Hemoglobin 28.4 pg (27.0-33.0); Mean Corpuscular Volume 85.8 fL (80-98); Mean Platelet Volume 11.8 fL (9.4-12.3); Monocytes Absolute Auto 0.5 X10*3/uL (0.1-1.2); Monocytes Percent Auto 7.6 % (2-11); Neutrophils Absolute Auto 3.8 X10*3/uL (2.0-8.3); Neutrophils Percent Auto 59.3 % (45-73); Platelet Count 249 X10*3/uL (160-400); Red Blood Count 4.02 X10*6/uL (4.20-5.50); Red Cell Distribution Width 16.1 % (11.0-16.0); White Blood Count 6.4 X10*3/uL (4.8-10.8)
[2020-12-02 23:04] LABS: COVID-19 Test Negative (Negative)
[2020-12-02 23:18] LABS: Alanine Aminotransferase 27 U/L (0-31); Albumin Level 4.1 g/dL (3.5-5.0); Alkaline Phosphatase 99 U/L (39-117); Anion Gap 15 (12-20); Aspartate Amino Transferase 20 U/L (5-31); Bilirubin Direct < 0.2 mg/dL (0.0-0.5); Bilirubin Total 0.5 mg/dL (0.0-1.0); Blood Urea Nitrogen 13 mg/dL (9-16); Calcium 8.5 mg/dL (8.4-10.2); Carbon Dioxide 23 mmol/L (22-29); Chloride 107 mmol/L (96-108); Estimated Glomerular Filt Rate 51; Glucose Random 135 mg/dL (60-115); Lipase 79 U/L (8-78); Potassium 3.3 mmol/L (3.3-5.1); Sodium 142 mmol/L (135-145); Total Protein 6.3 g/dL (6.5-8.0)
[2020-12-02 23:21] LABS: B Type Natriuretic Peptide < 10 pg/mL (<100); Troponin-I High Sensitivity < 3.5 ng/L (<3.5-17.0)
[2020-12-02 23:24] LABS: INTERNATIONAL NORM RATIO 1.9 (0.9-1.1)
[2020-12-02 23:30] LABS: D Dimer < 200 NG/ML
[2020-12-02 23:32] LABS: Partial Thromboplastin Time 65.5 SEC (24.1-38.0)
[2020-12-03] VITALS: BP 120/54; PULSE 90; RESP 18; O2SAT 96
--- NOTE | 2020-12-03 00:04 | PC.NURSE ---
md aware of complaints regarding muscle spasms and chest pressure. fluid infusing at this time.
[2020-12-03] MEDS: Potassium Chloride Packet 20 MEQ PACKET 40 MEQ PO (00:43)
== END 2020-12-03 01:05 | disposition home or self-care (01) ==
PROVIDERS: Emergency Provider Emergency Medicine
DX: F41.9 Anxiety disorder, unspecified (principal); Z20.822 Contact with and (suspected) exposure to COVID-19; I11.0 Hypertensive heart disease with heart failure; I50.9 Heart failure, unspecified; I48.91 Unspecified atrial fibrillation; J45.909 Unspecified asthma, uncomplicated; F17.200 Nicotine dependence, unspecified, uncomplicated; Z86.718 Personal history of other venous thrombosis and embolism; Z79.01 Long term (current) use of anticoagulants; Z79.899 Other long term (current) drug therapy
CPT/HCPCS: 36415; 80048; 80076; 83690; 83880; 84484; 85025; 85379; 85610; 85730; 87635; 93005; 96360; 99284

== ENCOUNTER 2020-12-27 16:21 | Emergency (ER) | payer MEDICARE, MEDICAID, SELFPAY ==
[2020-12-27 17:35] VITALS: BP 118/81; PULSE 95; RESP 20; TEMP 36.6; O2SAT 100; BMI 16.9
[2020-12-27 18:12] VITALS: BP 136/69; PULSE 88; RESP 18; TEMP 36.4; O2SAT 97
--- NOTE | 2020-12-27 18:12 | ED_ITS ---
HPI - Allergic Reaction General Chief complaint: Allergic Reaction Stated complaint: Allergic reaction Time Seen by Provider: 12/27/20 18:12 Source: patient Mode of arrival: ambulatory Limitations: no limitations History of Present Illness HPI narrative: Itching head to toe. MD complaint: allergic reaction and hives Onset (ago): day(s) Exposure: unknown Symptoms: rash and itching Severity: mild Treatment prior to arrival: benadryl Previous Allergic Reaction History: prior ED visit(s) Related Data Home Medications Medication Instructions Recorded Confirmed alprazolam PO 09/03/20 diltiazem HCl 180 mg PO DAILY 09/03/20 09/03/20 fluoxetine 60 mg PO DAILY 09/03/20 09/03/20 montelukast 10 mg PO BEDTIME 09/03/20 09/03/20 morphine 15 mg PO Q6H PRN 09/03/20 09/03/20 risperidone 0.25 mg PO BEDTIME 09/03/20 09/03/20 topiramate 50 mg PO DAILY 09/03/20 09/03/20 trazodone 100 mg PO BEDTIME 09/03/20 09/03/20 warfarin 5 mg PO SUSA 09/03/20 09/04/20 warfarin 15 mg PO MOTUWETHFR 09/03/20 09/04/20 nitrofurantoin monohyd/m-cryst 100 mg PO BID 09/04/20 09/04/20 Previous Rx's Medication Instructions Recorded prednisone 20 mg PO DAILY #3 tab 09/05/20 prednisone 50 mg PO DAILY 4 Days #4 tab 10/03/20 doxycycline monohydrate 100 mg PO BID 10 Days #20 cap 11/12/20 Allergies Allergy/AdvReac Type Severity Reaction Status Date / Time dexamethasone [From DECADRON] Allergy Severe HIVES Verified 12/02/20 21:41 oxycodone [From PERCOCET] Allergy Severe HIVES Verified 12/02/20 21:41 azithromycin Allergy Intermediate ITCHING Verified 12/02/20 21:41 [From ZITHROMAX Z-XANDER] acetaminophen [Percocet] Allergy Unknown Unknown Verified 12/02/20 21:41 amoxicillin [AMOXICILLIN] Allergy Unknown UNKNOWN, Verified 12/02/20 21:41 hives, swelling budesonide [From SYMBICORT] Allergy Unknown UNKNOWN Verified 12/02/20 21:41 cefpodoxime [From VANTIN] Allergy Unknown UNKNOWN Verified 12/02/20 21:41 cefuroxime [From CEFTIN] Allergy Unknown UNKNOWN Verified 12/02/20 21:41 Cephalosporins Allergy Unknown UNKNOWN Verified 12/02/20 21:41 [CEPHALOSPORINS] ciprofloxacin [From CIPRO] Allergy Unknown UNKNOWN Verified 12/02/20 21:41 diazepam [DIAZEPAM] Allergy Unknown ITCHING Verified 12/02/20 21:41 diphtheria,pertussis Allergy Unknown Unknown Verified 12/02/20 21:41 (acellular),te [Adacel(Tdap Adolesn/Adult)(PF)] erythromycin base Allergy Unknown UNKNOWN Verified 12/02/20 21:41 [ERYTHROMYCIN BASE] fluticasone [Advair Diskus] Allergy Unknown Unknown Verified 12/02/20 21:41 formoterol [From SYMBICORT] Allergy Unknown UNKNOWN Verified 12/02/20 21:41 hydrocodone [From VICODIN] Allergy Unknown unknown Verified 12/02/20 21:41 Iodinated Contrast Media Allergy Unknown UNKNOWN Verified 12/02/20 21:41 [CONTRAST, IV] levofloxacin [From LEVAQUIN] Allergy Unknown UNKNOWN Verified 12/02/20 21:41 penicillin G Allergy Unknown Unknown Verified 12/02/20 21:41 penicillin V Allergy Unknown Unknown Verified 12/02/20 21:41 Penicillins [PENICILLINS] Allergy Unknown UNKNOWN Verified 12/02/20 21:41 salmeterol [Advair Diskus] Allergy Unknown Unknown Verified 12/02/20 21:41 sertraline [From ZOLOFT] Allergy Unknown SUICIDAL Verified 12/02/20 21:41 Sulfa (Sulfonamide Allergy Unknown hives Verified 12/02/20 21:41 Antibiotics) tetanus and diphtheria Allergy Unknown UNKNOWN Verified 12/02/20 21:41 toxoids [TETANUS & DIPHTHERIA TOXOIDS] Vantin Allergy Unknown Unknown Verified 12/02/20 21:41 ketorolac [From TORADOL] AdvReac Mild ITCHING Verified 12/02/20 21:41 Ceftin Allergy Unknown Unknown Uncoded 12/02/20 21:41 IV dye Allergy Unknown Unknown Uncoded 12/02/20 21:41 Symbicort Allergy Unknown Unknown Uncoded 12/02/20 21:41 Tetanus Allergy Unknown Unknown Uncoded 12/02/20 21:41 Erythromycin Allergy Unknown Uncoded 12/02/20 21:41 Review of Systems Constitutional: Constitutional: Reports no additional constitutional complaints Eyes: Eyes: Reports no additional eye complaints ENT: Denies dizziness Cardiovascular: Cardiovascular: Reports no additional cardiovascular complaints Respiratory: Respiratory: Reports as per HPI Gastrointestinal: Gastrointestinal: Reports no additional gastrointestinal complaints Genitourinary: Genitourinary: Reports no additional female genitourinary complaints Musculoskeletal: Musculoskeletal: Reports no additional musculoskeletal complaints Integumentary/Breasts: Skin/Breast: Denies rash Neurologic: Reports system reviewed and no additional complaints, except as documented, Denies dizziness and Denies Sensory deficit (Neuro) Psychiatric: Psychiatric: Denies anxiety [facility] Past Medical History Medical History Anxiety Asthma Atrial fibrillation CHF (congestive heart failure) Depression DVT (deep venous thrombosis) Hypertension Morbid obesity Social History Social History Household Members: Family Housing: House Alcohol intake: current Alcohol intake frequency: 0-2 drinks per day Smoking Status: Current every day smoker Second Hand Smoke Exposure: No Use of substances other than those prescribed or required for medical reasons: No Advance Directives: No Advance Directives Information Provided: Yes service: No Current occupational status: unemployed Physical Exam Vital Signs: Vital Signs: Last Vital Signs Temp 97.5 F 12/27/20 18:12 Pulse 88 12/27/20 18:12 Resp 18 12/27/20 18:12 BP 136/69 12/27/20 18:12 Pulse Ox 97 12/27/20 18:12 Body Mass Index 16.9 Const: Other: calm no distress Nutritional Appearance: obese Orientation/consciousness: oriented to person and patient oriented x3 Limitations: no limitations HENMT: Other: uvula and tongue are normal Head: Yes normal to inspection Ears: external ears normal General nose exam: Normal external nose present Mouth: Normal oral and palatal mucosa present and oropharynx normal Throat: Yes posterior oropharynx normal Eyes: General: appearance normal, both eyes and all related structures Neck: Other: supple Neck: Yes normal visual inspection Chest: Chest palpation & inspection: normal inspection of the chest Resp: Auscultation: clear to auscultation bilaterally Cardio: Jugular venous distension: no JVD Rate: regular rate Rhythm: regular rhythm Heart sounds: S1 normal heart sound present and S2 normal heart sound present GI: Inspection: Yes normal to inspection Palpation (GI): Soft to palpation, nontender and No hepatosplenomegaly present Auscultation: normal bowel sounds : General: Yes no CVA tenderness Back/Spine/Pelvis: Back: no CVA tenderness Skin: Other: mild redness to face, no hives seen Neuro: General: oriented to person and patient oriented x3 Cranial nerves: Yes CN's II-XII intact bilaterally Motor exam (neuro): 5/5 motor strength present throughout Sensory Exam: No Sensory deficit (Neuro) Extrem: General: Yes normal to inspection Psych: Appearance: grossly normal Course Course Course Narrative: resting comfortably, no rash, no hives, no stridor, lungs jordy r MDM - Allergic Reaction Differential Diagnosis Differential diagnosis: Likely allergic reaction, angioedema, contact dermatitis and adverse reaction to drug Lab Data Result diagrams: 12/27/20 18:51 Discharge Plan Discharge Clinical Impression: Allergic reaction Patient Disposition: Home, Self-Care Prescriptions: No Action prednisone 50 mg tablet 50 mg PO DAILY 4 Days Qty: 4 RF: 0 doxycycline monohydrate 100 mg capsule 100 mg PO BID 10 Days Qty: 20 RF: 0 diltiazem HCl 180 mg Capsule,Extended Release 24 Hr 180 mg PO DAILY RF: 0 alprazolam 1 mg tablet PO RF: 0 risperidone 0.25 mg Tablet 0.25 mg PO BEDTIME RF: 0 montelukast 10 mg Tablet 10 mg PO BEDTIME RF: 0 topiramate 50 mg Tablet 50 mg PO DAILY RF: 0 fluoxetine 60 mg Tablet 60 mg PO DAILY RF: 0 warfarin 10 mg Tablet 15 mg PO MOTUWETHFR RF: 0 trazodone 100 mg Tablet 100 mg PO BEDTIME RF: 0 warfarin 5 mg Tablet 5 mg PO SUSA RF: 0 morphine 15 mg Tablet 15 mg PO Q6H PRN (Reason: Pain) RF: 0 nitrofurantoin monohyd/m-cryst 100 mg capsule 100 mg PO BID RF: 0 prednisone 20 mg tablet 20 mg PO DAILY Qty: 3 RF: 0 Referrals: Physician,Unknown [Primary Care Provider] - 2 days
--- NOTE | 2020-12-27 18:32 | PC.NURSE ---
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
[2020-12-27] MEDS: methylPREDNISolone Sod Succ 125 MG/2 ML VIAL IVPUSH (18:51)
[2020-12-27] MEDS: diphenhydrAMINE HCL 50 MG/ML VIAL IVPUSH (18:55)
[2020-12-27 19:58] LABS: Anion Gap 12 (12-20); Blood Urea Nitrogen 16 mg/dL (9-16); Calcium 8.6 mg/dL (8.4-10.2); Carbon Dioxide 19 mmol/L (22-29); Chloride 112 mmol/L (96-108); Estimated Glomerular Filt Rate > 60; Glucose Random 99 mg/dL (60-115); Potassium 3.6 mmol/L (3.3-5.1); Sodium 139 mmol/L (135-145)
[2020-12-27] MEDS: Heparin Sodium,Porcine Flush 50 UNITS, 0.9 % Sodium Chloride Flush 5 ML IVFLUSH (20:15)
== END 2020-12-27 20:23 | disposition home or self-care (01) ==
PROVIDERS: Emergency Provider Emergency Medicine
DX: L23.9 Allergic contact dermatitis, unspecified cause (principal); F17.200 Nicotine dependence, unspecified, uncomplicated; I10 Essential (primary) hypertension; Z71.6 Tobacco abuse counseling; Z79.899 Other long term (current) drug therapy
CPT/HCPCS: 36415; 80048; 96365; 96375; 99284; J1200; J1642; J2930

== ENCOUNTER 2021-01-12 15:43 | Emergency (ER) | payer MEDICARE, MEDICAID, SELFPAY ==
--- NOTE | ~2021-01-12 | CT_ITS ---
EXAMINATION: CT ABDOMEN AND PELVIS WITHOUT CONTRAST CLINICAL INFORMATION: Right lower quadrant pain and diarrhea COMPARISON: CT abdomen pelvis 12/23/2019 TECHNIQUE: Multidetector volumetric imaging was performed from the superior aspect of the liver through the pubic symphysis. Sagittal and coronal reformatted images were obtained on the technologist's workstation. This CT examination was performed using dose optimization techniques as appropriate, variously including the following: *Automated exposure control *Adjustment of mA and/or kV according to patient size (this includes techniques or standardized protocols for targeted exams where dose is matched to indication/reason for exam; i.e. extremities or head) *Use of iterative reconstruction technique DLP: 915 mGy-cm FINDINGS: LUNG BASES: The visualized lung bases are unremarkable. LIVER, GALLBLADDER, AND BILIARY TREE: The liver is normal in size and shape but demonstrates decreased attenuation consistent with hepatic steatosis. No focal hepatic lesion or biliary ductal dilatation is present. The gallbladder is unremarkable with no evidence of radiopaque gallstones, gallbladder wall thickening, or obvious pericholecystic inflammatory changes. PANCREAS: Unremarkable. SPLEEN: Unremarkable. ADRENAL GLANDS: Unremarkable. KIDNEYS AND URETERS: The kidneys are normal in size, shape, and attenuation. No hydronephrosis, hydroureter, or calculi seen. No perinephric stranding. BLADDER: Unremarkable. GASTROINTESTINAL TRACT: A small hiatal hernia is present. The small and large bowel are unremarkable. The appendix is unremarkable. ABDOMINAL WALL: No significant hernia is appreciated. There is a tiny periumbilical hernia containing only fat. LYMPH NODES: No retroperitoneal lymphadenopathy seen. VASCULAR: Unremarkable. PELVIC VISCERA: Surgically absent OSSEOUS STRUCTURES: Unremarkable. CT/CT abdomen pelvis wo con IMPRESSION: 1. Hepatic steatosis 2. Small hiatal hernia 3. Status post hysterectomy 4. A definitive cause for the patient's right lower quadrant pain and diarrhea has not been found.
[2021-01-12 15:54] VITALS: BP 114/76; PULSE 96; RESP 16; TEMP 36.8; O2SAT 97; BMI 43.0
--- NOTE | 2021-01-12 19:21 | ED.GIBLEED ---
HPI - GI Bleed General Chief complaint: GI Bleed Stated complaint: Asthma Time Seen by Provider: 01/12/21 19:19 Source: patient Mode of arrival: ambulatory Limitations: no limitations History of Present Illness HPI Narrative: 50-year-old female came in today for evaluation of diarrhea, and lower abdominal cramping pain. This is a 50-year-old female came in with lower abdominal pain that started 3 days ago pain was described as right lower quadrant area, pain has been intermittent crampy pain comes and goes, maximum pain is severe 10/10. Now pain is moderate 5/10, nothing makes the pain worse or make it better. Patient also has been complaining of 3 days of nonbloody watery diarrhea patient declined any recent travel, no recent use of antibiotics, no history of eating bad food. Today patient notices that she has been passing dark/black stool thought to be blood. Related Data Home Medications Medication Instructions Recorded Confirmed alprazolam PO 09/03/20 diltiazem HCl 180 mg PO DAILY 09/03/20 09/03/20 fluoxetine 60 mg PO DAILY 09/03/20 09/03/20 montelukast 10 mg PO BEDTIME 09/03/20 09/03/20 morphine 15 mg PO Q6H PRN 09/03/20 09/03/20 risperidone 0.25 mg PO BEDTIME 09/03/20 09/03/20 topiramate 50 mg PO DAILY 09/03/20 09/03/20 trazodone 100 mg PO BEDTIME 09/03/20 09/03/20 warfarin 5 mg PO SUSA 09/03/20 09/04/20 warfarin 15 mg PO MOTUWETHFR 09/03/20 09/04/20 nitrofurantoin monohyd/m-cryst 100 mg PO BID 09/04/20 09/04/20 Previous Rx's Medication Instructions Recorded prednisone 20 mg PO DAILY #3 tab 09/05/20 prednisone 50 mg PO DAILY 4 Days #4 tab 10/03/20 doxycycline monohydrate 100 mg PO BID 10 Days #20 cap 11/12/20 Allergies Allergy/AdvReac Type Severity Reaction Status Date / Time dexamethasone [From DECADRON] Allergy Severe HIVES Verified 12/02/20 21:41 oxycodone [From PERCOCET] Allergy Severe HIVES Verified 12/02/20 21:41 azithromycin Allergy Intermediate ITCHING Verified 12/02/20 21:41 [From ZITHROMAX Z-XANDER] acetaminophen [Percocet] Allergy Unknown Unknown Verified 12/02/20 21:41 amoxicillin [AMOXICILLIN] Allergy Unknown UNKNOWN, Verified 12/02/20 21:41 hives, swelling budesonide [From SYMBICORT] Allergy Unknown UNKNOWN Verified 12/02/20 21:41 cefpodoxime [From VANTIN] Allergy Unknown UNKNOWN Verified 12/02/20 21:41 cefuroxime [From CEFTIN] Allergy Unknown UNKNOWN Verified 12/02/20 21:41 Cephalosporins Allergy Unknown UNKNOWN Verified 12/02/20 21:41 [CEPHALOSPORINS] ciprofloxacin [From CIPRO] Allergy Unknown UNKNOWN Verified 12/02/20 21:41 diazepam [DIAZEPAM] Allergy Unknown ITCHING Verified 12/02/20 21:41 diphtheria,pertussis Allergy Unknown Unknown Verified 12/02/20 21:41 (acellular),te [Adacel(Tdap Adolesn/Adult)(PF)] erythromycin base Allergy Unknown UNKNOWN Verified 12/02/20 21:41 [ERYTHROMYCIN BASE] fluticasone [Advair Diskus] Allergy Unknown Unknown Verified 12/02/20 21:41 formoterol [From SYMBICORT] Allergy Unknown UNKNOWN Verified 12/02/20 21:41 hydrocodone [From VICODIN] Allergy Unknown unknown Verified 12/02/20 21:41 Iodinated Contrast Media Allergy Unknown UNKNOWN Verified 12/02/20 21:41 [CONTRAST, IV] levofloxacin [From LEVAQUIN] Allergy Unknown UNKNOWN Verified 12/02/20 21:41 penicillin G Allergy Unknown Unknown Verified 12/02/20 21:41 penicillin V Allergy Unknown Unknown Verified 12/02/20 21:41 Penicillins [PENICILLINS] Allergy Unknown UNKNOWN Verified 12/02/20 21:41 salmeterol [Advair Diskus] Allergy Unknown Unknown Verified 12/02/20 21:41 sertraline [From ZOLOFT] Allergy Unknown SUICIDAL Verified 12/02/20 21:41 Sulfa (Sulfonamide Allergy Unknown hives Verified 12/02/20 21:41 Antibiotics) tetanus and diphtheria Allergy Unknown UNKNOWN Verified 12/02/20 21:41 toxoids [TETANUS & DIPHTHERIA TOXOIDS] Vantin Allergy Unknown Unknown Verified 12/02/20 21:41 ketorolac [From TORADOL] AdvReac Mild ITCHING Verified 12/02/20 21:41 Ceftin Allergy Unknown Unknown Uncoded 12/02/20 21:41 IV dye Allergy Unknown Unknown Uncoded 12/02/20 21:41 Symbicort Allergy Unknown Unknown Uncoded 12/02/20 21:41 Tetanus Allergy Unknown Unknown Uncoded 12/02/20 21:41 Erythromycin Allergy Unknown Uncoded 12/02/20 21:41 Review of Systems Review of Systems: All other systems are reviewed and are negative Constitutional: Reports as per HPI and Reports no additional constitutional complaints Eyes: Reports as per HPI and Reports no additional eye complaints Reports system reviewed and no additional complaints, except as documented Cardiovascular: Reports as per HPI and Reports no additional cardiovascular complaints Respiratory: Reports as per HPI and Reports no additional respiratory complaints Gastrointestinal: Reports as per HPI and Reports no additional gastrointestinal complaints Genitourinary: Reports no additional female genitourinary complaints Musculoskeletal: Reports no additional musculoskeletal complaints Skin/Breast: Reports system reviewed and no additional complaints, except as docu Psychiatric: Reports no additional psychiatric complaints Endocrine: Reports no additional endocrine complaints Hematologic/Lymphatic: Reports no additional hematologic/lymphatic complaints Allergic/Immunologic: Reports no additional allergic/immunologic complaints Reports system reviewed and no additional complaints, except as documented and Reports Abnormal speech present ON LICENSE OF [facility] Past Medical History Medical History Anxiety Asthma Atrial fibrillation CHF (congestive heart failure) Depression DVT (deep venous thrombosis) Hypertension Morbid obesity Social History Social History Household Members: Family Housing: House Alcohol intake: current Alcohol intake frequency: 0-2 drinks per day Smoking Status: Current every day smoker Second Hand Smoke Exposure: No Advance Directives: No Advance Directives Information Provided: Yes service: No Current occupational status: unemployed Physical Exam Vital Signs: Vital Signs: Last Vital Signs Temp 98.3 F 01/12/21 15:54 Pulse 96 01/12/21 15:54 Resp 16 01/12/21 15:54 BP 114/76 01/12/21 15:54 Pulse Ox 97 01/12/21 15:54 Body Mass Index 43.0 Vital signs have been reviewed as appeared to be correct. Blood pressure normal. Heart rate normal. Respiration rate normal. Temperature normal. Oxygen saturation normal. Appearance: Alert. Oriented X3. No acute distress. Head: Normal external exam. Normocephalic. Atraumatic. No Salter signs noted. No raccoon eyes noted Eyes: PERRLA. EOMI. Conjunctiva and sclera normal. Eyelids normal. ENT: TM's Normal. Pharynx normal. Uvula midline. Moist mucous membranes. No trismus noted. No drooling noted. No muffled voice noted. Neck: Normal inspection. Neck supple. FROM. No adenopathy. Thyroid Normal. No meningeal signs. No neck mass noted. CVS: Normal heart rate and rhythm. Heart sound normal. No murmurs noted. Pulses normal throughout. Respiratory: No respiratory distress. Painless inspiration. Breath sounds normal. No wheezes/rales/rhonchi noted. Chest nontender. No accessory muscle usage noted or decreased air movement noted. Abdomen: Soft, mild tenderness to the right lower quadrant, no rebound tenderness, no guarding. Bowel sounds normal in all 4 quadrants. No distention noted. No organomegaly noted. No visible injury noted. Rectal exam: In the presence of a female landing signal officer RN, stool is brown guaiac negative. Back: No CVA tenderness. Full range of motion noted. Skin: Skin warm and dry. Normal skin color. Normal skin turgor. No rashes/lesions/lacerations noted. Extremities: No lower extremity edema. Extremities exhibit normal range of motion. Extremities nontender. Neuro: Oriented X 3. No motor deficit. No sensory deficit. Reflexes normal. Course Course Course Narrative: Assessment and plan. 50-year-old female came in with rectal bleed and abdominal pain. Patient had a CT of the abdomen pelvis which showed no acute intra abdominal pathology, patient was chronic anemia but at her baseline, unremarkable labs, patient unable to give UA. 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 MDM - GI Bleed Lab Data Attestation: I reviewed the patient's lab results. Result diagrams: 01/12/21 19:56 01/12/21 19:56 Labs: Lab Results 01/12/21 01/12/21 01/12/21 Range/Units 19:18 19:56 19:56 WBC 6.2 (4.8-10.8) X10*3/uL RBC 3.70 L (4.20-5.50) X10*6/uL Hgb 10.2 L (12.0-16.0) g/dl Hct 31.9 L (37-47) % MCV 86.2 (80-98) fL MCH 27.6 (27.0-33.0) pg MCHC 32.0 (31.0-35.0) g/dl RDW 14.7 (11.0-16.0) % Plt Count 250 (160-400) X10*3/uL MPV 12.6 H (9.4-12.3) fL Immature Gran % (Auto) 0.2 (0.0-0.4) % Neut % (Auto) 63.4 (45-73) % Lymph % (Auto) 26.4 (20-40) % [place] % (Auto) 7.1 (2-11) % Eos % (Auto) 2.4 (0-4) % Baso % (Auto) 0.5 (0-2) % Lymph # (Auto) 1.6 (1.2-4.9) X10*3/uL [place] # (Auto) 0.4 (0.1-1.2) X10*3/uL Eos # (Auto) 0.2 (0.0-0.4) X10*3/uL Baso # (Auto) 0.0 (0.0-0.2) X10*3/uL Abs Immat Gran (auto) 0.01 (0.00-0.03) X10*3/uL Absolute Neuts (auto) 3.9 (2.0-8.3) X10*3/uL Absolute Nucleated RBC 0.000 (0.0-0.012) X10*3/uL Nucleated RBC % (auto) 0.0 (0.0-0.2) /100WBC Hold Blue Top SEE NOTE Sodium (135-145) mmol/L Potassium (3.3-5.1) mmol/L Chloride (96-108) mmol/L Carbon Dioxide (22-29) mmol/L Anion Gap (12-20) BUN (9-16) mg/dL Creatinine (0.5-1.4) mg/dL Estim Creat Clear Calc Estimated GFR Random Glucose (60-115) mg/dL Calcium (8.4-10.2) mg/dL Lipase (8-78) U/L Stool Occult Blood NEGATIVE (NEGATIVE) 01/12/21 Range/Units 19:56 WBC (4.8-10.8) X10*3/uL RBC (4.20-5.50) X10*6/uL Hgb (12.0-16.0) g/dl Hct (37-47) % MCV (80-98) fL MCH (27.0-33.0) pg MCHC (31.0-35.0) g/dl RDW (11.0-16.0) % Plt Count (160-400) X10*3/uL MPV (9.4-12.3) fL Immature Gran % (Auto) (0.0-0.4) % Neut % (Auto) (45-73) % Lymph % (Auto) (20-40) % [place] % (Auto) (2-11) % Eos % (Auto) (0-4) % Baso % (Auto) (0-2) % Lymph # (Auto) (1.2-4.9) X10*3/uL [place] # (Auto) (0.1-1.2) X10*3/uL Eos # (Auto) (0.0-0.4) X10*3/uL Baso # (Auto) (0.0-0.2) X10*3/uL Abs Immat Gran (auto) (0.00-0.03) X10*3/uL Absolute Neuts (auto) (2.0-8.3) X10*3/uL Absolute Nucleated RBC (0.0-0.012) X10*3/uL Nucleated RBC % (auto) (0.0-0.2) /100WBC Hold Blue Top Sodium 142 (135-145) mmol/L Potassium 3.0 L (3.3-5.1) mmol/L Chloride 107 (96-108) mmol/L Carbon Dioxide 23 (22-29) mmol/L Anion Gap 15 (12-20) BUN 21 H (9-16) mg/dL Creatinine 0.86 (0.5-1.4) mg/dL Estim Creat Clear Calc 82.1 Estimated GFR > 60 Random Glucose 118 H (60-115) mg/dL Calcium 8.8 (8.4-10.2) mg/dL Lipase 44 (8-78) U/L Stool Occult Blood (NEGATIVE) Imaging Data CT scan - abdomen: Radiologist's impression: 1. Hepatic steatosis 2. Small hiatal hernia 3. Status post hysterectomy 4. A definitive cause for the patient's right lower quadrant pain and diarrhea has not been found. Discharge Plan Discharge Clinical Impression: Abdominal pain Qualifiers: Abdominal location: right lower quadrant Qualified Code(s): R10.31 - Right lower quadrant pain Anemia Qualifiers: Anemia type: unspecified type Qualified Code(s): D64.9 - Anemia, unspecified Patient Disposition: Home, Self-Care Instructions: Abdominal Pain (ED) Prescriptions: No Action prednisone 50 mg tablet 50 mg PO DAILY 4 Days Qty: 4 RF: 0 doxycycline monohydrate 100 mg capsule 100 mg PO BID 10 Days Qty: 20 RF: 0 diltiazem HCl 180 mg Capsule,Extended Release 24 Hr 180 mg PO DAILY RF: 0 alprazolam 1 mg tablet PO RF: 0 risperidone 0.25 mg Tablet 0.25 mg PO BEDTIME RF: 0 montelukast 10 mg Tablet 10 mg PO BEDTIME RF: 0 topiramate 50 mg Tablet 50 mg PO DAILY RF: 0 fluoxetine 60 mg Tablet 60 mg PO DAILY RF: 0 warfarin 10 mg Tablet 15 mg PO MOTUWETHFR RF: 0 trazodone 100 mg Tablet 100 mg PO BEDTIME RF: 0 warfarin 5 mg Tablet 5 mg PO SUSA RF: 0 morphine 15 mg Tablet 15 mg PO Q6H PRN (Reason: Pain) RF: 0 nitrofurantoin monohyd/m-cryst 100 mg capsule 100 mg PO BID RF: 0 prednisone 20 mg tablet 20 mg PO DAILY Qty: 3 RF: 0 Referrals: Vel Martinez MD [Primary Care Provider] - 2 days
[2021-01-12 19:26] LABS: OBS Int Ctl Valid YES; OBS1 NEGATIVE (NEGATIVE)
[2021-01-12 20:03] LABS: MANUAL DIFF FLAG NO
[2021-01-12] MEDS: 0.9 % Sodium Chloride 1,000 ML 999 ML IVCONT (20:05)
[2021-01-12] MEDS: ondansetron HCL 4 MG/2 ML VIAL IVPUSH (20:05)
[2021-01-12 20:06] LABS: Basophils Percent Auto 0.5 % (0-2); Eosinophils Absolute Auto 0.2 X10*3/uL (0.0-0.4); Eosinophils Percent Auto 2.4 % (0-4); Hematocrit 31.9 % (37-47); Hemoglobin 10.2 g/dl (12.0-16.0); Imm Gran Abs Auto 0.01 X10*3/uL (0.00-0.03); Imm Gran Pct Auto 0.2 % (0.0-0.4); Lymphocytes Absolute Auto 1.6 X10*3/uL (1.2-4.9); Lymphocytes Percent Auto 26.4 % (20-40); Mean Corpuscular Hemoglobin 27.6 pg (27.0-33.0); Mean Corpuscular Volume 86.2 fL (80-98); Mean Platelet Volume 12.6 fL (9.4-12.3); Monocytes Absolute Auto 0.4 X10*3/uL (0.1-1.2); Monocytes Percent Auto 7.1 % (2-11); Neutrophils Absolute Auto 3.9 X10*3/uL (2.0-8.3); Neutrophils Percent Auto 63.4 % (45-73); Platelet Count 250 X10*3/uL (160-400); Red Cell Distribution Width 14.7 % (11.0-16.0); White Blood Count 6.2 X10*3/uL (4.8-10.8)
[2021-01-12 20:26] LABS: Anion Gap 15 (12-20); Blood Urea Nitrogen 21 mg/dL (9-16); Calcium 8.8 mg/dL (8.4-10.2); Carbon Dioxide 23 mmol/L (22-29); Chloride 107 mmol/L (96-108); Creatinine Clr Calc Pharmacy 82.1; Estimated Glomerular Filt Rate > 60; Glucose Random 118 mg/dL (60-115); Lipase 44 U/L (8-78); Sodium 142 mmol/L (135-145)
[2021-01-12] MEDS: Potassium Chloride Packet 20 MEQ PACKET 40 MEQ PO (23:50)
[2021-01-12] MEDS: Heparin Sodium,Porcine Flush 50 UNITS/5 ML SYRINGE IVFLUSH (23:59)
== END 2021-01-13 00:02 | disposition home or self-care (01) ==
PROVIDERS: Emergency Provider Emergency Medicine; PCP Family Medicine
DX: R10.31 Right lower quadrant pain (principal); D64.9 Anemia, unspecified; R19.7 Diarrhea, unspecified; K44.9 Diaphragmatic hernia without obstruction or gangrene; I11.0 Hypertensive heart disease with heart failure; I50.9 Heart failure, unspecified; I48.91 Unspecified atrial fibrillation; Z90.710 Acquired absence of both cervix and uterus; Z86.718 Personal history of other venous thrombosis and embolism; Z79.01 Long term (current) use of anticoagulants; Z79.899 Other long term (current) drug therapy
CPT/HCPCS: 36415; 74176; 80048; 82272; 83690; 85025; 96361; 96374; 96375; 99283; 99284; J1642; J2405

== ENCOUNTER 2021-01-27 12:02 | Emergency (ER) | payer MEDICARE, MEDICAID, SELFPAY ==
--- NOTE | ~2021-01-27 | XR_ITS ---
EXAMINATION: XR CHEST CLINICAL INFORMATION: Shortness of breath COMPARISON: 10/02/2020 TECHNIQUE: Frontal view of the chest was obtained. FINDINGS: CT compatible left chest wall port terminates near the cavoatrial junction. The lungs are well expanded. There is no focal consolidation, edema, or effusion. No pneumothorax. The cardiomediastinal silhouette is within normal limits. No acute osseous abnormality. XR/XR chest 1V IMPRESSION: Clear lungs.
[2021-01-27 12:06] VITALS: BP 127/76; PULSE 106; RESP 24; TEMP 37.5; O2SAT 96; BMI 43.0
--- NOTE | 2021-01-27 12:29 | ED_ITS ---
HPI - General Adult General Chief complaint: General Medical Stated complaint: sob,facial swelling,leg swelling Time Seen by Provider: 01/27/21 12:28 Source: patient Mode of arrival: ambulatory Limitations: no limitations History of Present Illness HPI narrative: Pleasant 50-year-old female with below noted past medical history including history of anxiety disorder, asthma, CHF, DVT, hypertension, morbid obesity with numerous ED visits and she is currently anticoagulated on Coumadin she presents today with constellation of complaints including upper respiratory symptoms of cough congestion for past 1 day and also leg swelling with redness. No fever, chest pain or shortness of breath. Onset (ago): day(s) Severity: moderate Severity scale (1-10): 5 Pain Consistency: constant Relieving factors: none Exacerbating factors: none Treatments prior to arrival: none Related Data Home Medications Medication Instructions Recorded Confirmed alprazolam PO 09/03/20 diltiazem HCl 180 mg PO DAILY 09/03/20 09/03/20 fluoxetine 60 mg PO DAILY 09/03/20 09/03/20 montelukast 10 mg PO BEDTIME 09/03/20 09/03/20 morphine 15 mg PO Q6H PRN 09/03/20 09/03/20 risperidone 0.25 mg PO BEDTIME 09/03/20 09/03/20 topiramate 50 mg PO DAILY 09/03/20 09/03/20 trazodone 100 mg PO BEDTIME 09/03/20 09/03/20 warfarin 5 mg PO SUSA 09/03/20 09/04/20 warfarin 15 mg PO MOTUWETHFR 09/03/20 09/04/20 nitrofurantoin monohyd/m-cryst 100 mg PO BID 09/04/20 09/04/20 Previous Rx's Medication Instructions Recorded prednisone 20 mg PO DAILY #3 tab 09/05/20 prednisone 50 mg PO DAILY 4 Days #4 tab 10/03/20 doxycycline monohydrate 100 mg PO BID 10 Days #20 cap 11/12/20 Allergies Allergy/AdvReac Type Severity Reaction Status Date / Time dexamethasone [From DECADRON] Allergy Severe HIVES Verified 01/27/21 12:06 oxycodone [From PERCOCET] Allergy Severe HIVES Verified 01/27/21 12:06 azithromycin Allergy Intermediate ITCHING Verified 01/27/21 12:06 [From ZITHROMAX Z-XANDER] acetaminophen [Percocet] Allergy Unknown Unknown Verified 01/27/21 12:06 amoxicillin [AMOXICILLIN] Allergy Unknown UNKNOWN, Verified 01/27/21 12:06 hives, swelling budesonide [From SYMBICORT] Allergy Unknown UNKNOWN Verified 01/27/21 12:06 cefpodoxime [From VANTIN] Allergy Unknown UNKNOWN Verified 01/27/21 12:06 cefuroxime [From CEFTIN] Allergy Unknown UNKNOWN Verified 01/27/21 12:06 Cephalosporins Allergy Unknown UNKNOWN Verified 01/27/21 12:06 [CEPHALOSPORINS] ciprofloxacin [From CIPRO] Allergy Unknown UNKNOWN Verified 01/27/21 12:06 diazepam [DIAZEPAM] Allergy Unknown ITCHING Verified 01/27/21 12:06 diphtheria,pertussis Allergy Unknown Unknown Verified 01/27/21 12:06 (acellular),te [Adacel(Tdap Adolesn/Adult)(PF)] erythromycin base Allergy Unknown UNKNOWN Verified 01/27/21 12:06 [ERYTHROMYCIN BASE] fluticasone [Advair Diskus] Allergy Unknown Unknown Verified 01/27/21 12:06 formoterol [From SYMBICORT] Allergy Unknown UNKNOWN Verified 01/27/21 12:06 hydrocodone [From VICODIN] Allergy Unknown unknown Verified 01/27/21 12:06 Iodinated Contrast Media Allergy Unknown UNKNOWN Verified 01/27/21 12:06 [CONTRAST, IV] levofloxacin [From LEVAQUIN] Allergy Unknown UNKNOWN Verified 01/27/21 12:06 penicillin G Allergy Unknown Unknown Verified 01/27/21 12:06 penicillin V Allergy Unknown Unknown Verified 01/27/21 12:06 Penicillins [PENICILLINS] Allergy Unknown UNKNOWN Verified 01/27/21 12:06 salmeterol [Advair Diskus] Allergy Unknown Unknown Verified 01/27/21 12:06 sertraline [From ZOLOFT] Allergy Unknown SUICIDAL Verified 01/27/21 12:06 Sulfa (Sulfonamide Allergy Unknown hives Verified 01/27/21 12:06 Antibiotics) tetanus and diphtheria Allergy Unknown UNKNOWN Verified 01/27/21 12:06 toxoids [TETANUS & DIPHTHERIA TOXOIDS] Vantin Allergy Unknown Unknown Verified 01/27/21 12:06 ketorolac [From TORADOL] AdvReac Mild ITCHING Verified 01/27/21 12:06 Ceftin Allergy Unknown Unknown Uncoded 12/02/20 21:41 IV dye Allergy Unknown Unknown Uncoded 12/02/20 21:41 Symbicort Allergy Unknown Unknown Uncoded 12/02/20 21:41 Tetanus Allergy Unknown Unknown Uncoded 12/02/20 21:41 Erythromycin Allergy Unknown Uncoded 12/02/20 21:41 Review of Systems Review of Systems: Constitutional: No Weight loss, No Fever, No Chills, No Night Sweats, No Fatigue, No Malaise ENT/Mouth: No Hearing loss, No Ear Pain, + Nasal Congestion, No Sinus Pain, No Hoarseness, No sore throat, No Rhinorrhea, No Swallowing Difficulty Eyes: No Eye Pain, No Swelling, No Redness, No Foreign Body, No Discharge, No Vision Changes Cardiovascular: No Chest Pain, No SOB, No Dyspnea on Exertion, No Orthopnea, No Edema, No Palpitations Respiratory: No Cough, No Sputum, No Wheezing, No Smoke Exposure, No Dyspnea Gastrointestinal: No Nausea, No Vomiting, No Diarrhea, No Constipation, No abdominal Pain, No Hematochezia, No Melena Genitourinary: No Dysuria, No Urinary Frequency, No Hematuria, No Urinary Incontinence, No Urgency, No Flank Pain, No Urinary Flow Changes, No Hesitancy Musculoskeletal: No joint pain, No Myalgias, No Joint Swelling Skin: No Skin Lesions, + as noted Neuro: No Weakness, No Numbness, No Paresthesias, No Loss of Consciousness, No Dizziness, No Headache Psych: No Social Issues Heme/Lymph: No Bruising, No Bleeding,No Lymphadenopathy Endocrine: No Polyuria, No Polydipsia, No Temperature Intolerance Yes all other systems are reviewed and are negative [facility] Past Medical History Medical History Anxiety Asthma Atrial fibrillation CHF (congestive heart failure) Depression DVT (deep venous thrombosis) Hypertension Morbid obesity Social History Social History Household Members: Family Housing: House Alcohol intake: current Alcohol intake frequency: 0-2 drinks per day Smoking Status: Current every day smoker Second Hand Smoke Exposure: No Advance Directives: Yes Advance Directives Information Provided: Yes Advance Directives on File: Yes Advance Directives Date on File: 09/06/20 service: No Current occupational status: unemployed Physical Exam Vital Signs: Vital Signs: Last Vital Signs Temp 98.7 F 01/27/21 14:53 Pulse 99 01/27/21 14:53 Resp 18 01/27/21 14:53 BP 144/74 H 01/27/21 14:53 Pulse Ox 96 01/27/21 14:53 Body Mass Index 43.0 Reviewed Const: General: cooperative and healthy appearing; No acute distress or intoxicated appearing Nutritional Appearance: average body habitus Orientation/consciousness: patient oriented x3 HENMT: Head: Yes normal to inspection Ears: hearing grossly normal bilaterally Eyes: General: appearance normal, both eyes and all related structures Visual De Los Santos: normal visual de los santos by confrontation Neck: Neck: Yes normal visual inspection, No positive Brudzinski's sign, No positive Kernig's sign and No tender Thyroid: Thyroid normal Chest: Chest palpation & inspection: normal inspection of the chest Resp: Effort & Inspection: normal respiratory effort Auscultation: clear to auscultation bilaterally Cardio: Jugular venous distension: no JVD Rhythm: regular rhythm Heart sounds: S1 normal heart sound present and S2 normal heart sound present GI: Inspection: Yes normal to inspection Palpation (GI): Soft to palpation Percussion: Yes normal to percussion Auscultation: normal bowel sounds : General: Yes no CVA tenderness Back/Spine/Pelvis: Back: no CVA tenderness Skin: General skin exam: no rashes or lesions noted Neuro: General: patient oriented x3 Extrem: General: Yes normal to inspection Upper/lower leg/hip images: 1. Both anterior church areas with very minimal erythema over the exposed area and she admits to sitting in the chair in the sun over the past day given that with nice outside. Consistent with very mild sunburn. No blistering, erythema, TTP, discharge. 2. Course Reevaluation(s) Reevaluation #1: Overall nontoxic appearing more anxious. Mild upper respiratory symptoms will discharge supportive care. Bilateral church areas she wears shorts since this nature under the sun or past day since has been nice consistent with first-degree sunburn very mild. Supportive care for this reviewed. Feels comfortable plan. Otherwise lab stable stable for discharge. Medical Decision Making Lab Data Result diagrams: 01/27/21 12:53 01/27/21 12:53 Labs: Lab Results 04/10/21 04/10/21 04/10/21 Range/Units 12:52 12:52 12:53 WBC 7.6 (4.8-10.8) X10*3/uL RBC 4.03 L (4.20-5.50) X10*6/uL Hgb 10.7 L (12.0-16.0) g/dl Hct 34.5 L (37-47) % MCV 85.6 (80-98) fL MCH 26.6 L (27.0-33.0) pg MCHC 31.0 (31.0-35.0) g/dl RDW 14.8 (11.0-16.0) % Plt Count 256 (160-400) X10*3/uL MPV 12.7 H (9.4-12.3) fL Immature Gran % (Auto) 0.5 H (0.0-0.4) % Neut % (Auto) 74.8 H (45-73) % Lymph % (Auto) 15.5 L (20-40) % Kershaw % (Auto) 7.4 (2-11) % Eos % (Auto) 1.4 (0-4) % Baso % (Auto) 0.4 (0-2) % Lymph # (Auto) 1.2 (1.2-4.9) X10*3/uL [place] # (Auto) 0.6 (0.1-1.2) X10*3/uL Eos # (Auto) 0.1 (0.0-0.4) X10*3/uL Baso # (Auto) 0.0 (0.0-0.2) X10*3/uL Abs Immat Gran (auto) 0.04 H (0.00-0.03) X10*3/uL Absolute Neuts (auto) 5.7 (2.0-8.3) X10*3/uL Absolute Nucleated RBC 0.000 (0.0-0.012) X10*3/uL Nucleated RBC % (auto) 0.0 (0.0-0.2) /100WBC PT (10.8-13.0) SEC INR (0.9-1.1) APTT (24.1-38.0) SEC D-Dimer NG/ML Sodium (135-145) mmol/L Potassium (3.3-5.1) mmol/L Chloride (96-108) mmol/L Carbon Dioxide (22-29) mmol/L Anion Gap (12-20) BUN (9-16) mg/dL Creatinine (0.5-1.4) mg/dL Estim Creat Clear Calc Estimated GFR Random Glucose (60-115) mg/dL Lactic Acid 2.1 H* (0.5-2.0) mmol/L Calcium (8.4-10.2) mg/dL Total Bilirubin (0.0-1.0) mg/dL AST (5-31) U/L ALT (0-31) U/L Alkaline Phosphatase (39-117) U/L Troponin I High Sens 3.6 (<3.5-17.0) ng/L C-Reactive Protein (< or = 0.50) mg/dL B-Natriuretic Peptide 20 (<100) pg/mL Total Protein (6.5-8.0) g/dL Albumin (3.5-5.0) g/dL Coronavirus (PCR) (Negative) Influenza Type A (PCR) (Negative) Influenza Type B (PCR) (Negative) RSV RNA Qual (PCR) (Negative) 01/27/21 01/27/21 01/27/21 Range/Units 12:53 12:53 12:54 WBC (4.8-10.8) X10*3/uL RBC (4.20-5.50) X10*6/uL Hgb (12.0-16.0) g/dl Hct (37-47) % MCV (80-98) fL MCH (27.0-33.0) pg MCHC (31.0-35.0) g/dl RDW (11.0-16.0) % Plt Count (160-400) X10*3/uL MPV (9.4-12.3) fL Immature Gran % (Auto) (0.0-0.4) % Neut % (Auto) (45-73) % Lymph % (Auto) (20-40) % K[place]haw % (Auto) (2-11) % Eos % (Auto) (0-4) % Baso % (Auto) (0-2) % Lymph # (Auto) (1.2-4.9) X10*3/uL [place] # (Auto) (0.1-1.2) X10*3/uL Eos # (Auto) (0.0-0.4) X10*3/uL Baso # (Auto) (0.0-0.2) X10*3/uL Abs Immat Gran (auto) (0.00-0.03) X10*3/uL Absolute Neuts (auto) (2.0-8.3) X10*3/uL Absolute Nucleated RBC (0.0-0.012) X10*3/uL Nucleated RBC % (auto) (0.0-0.2) /100WBC PT 34.7 H D (10.8-13.0) SEC INR 2.9 H (0.9-1.1) APTT 42.2 H (24.1-38.0) SEC D-Dimer < 200 NG/ML Sodium 141 (135-145) mmol/L Potassium 5.0 D (3.3-5.1) mmol/L Chloride 111 H (96-108) mmol/L Carbon Dioxide 17 L (22-29) mmol/L Anion Gap 18 (12-20) BUN 9 D (9-16) mg/dL Creatinine 0.73 (0.5-1.4) mg/dL Estim Creat Clear Calc 96.7 Estimated GFR > 60 Random Glucose 99 (60-115) mg/dL Lactic Acid (0.5-2.0) mmol/L Calcium 8.7 (8.4-10.2) mg/dL Total Bilirubin 0.2 (0.0-1.0) mg/dL AST 31 D (5-31) U/L ALT 24 (0-31) U/L Alkaline Phosphatase 85 (39-117) U/L Troponin I High Sens (<3.5-17.0) ng/L C-Reactive Protein 1.27 H (< or = 0.50) mg/dL B-Natriuretic Peptide (<100) pg/mL Total Protein 6.8 (6.5-8.0) g/dL Albumin 4.2 (3.5-5.0) g/dL Coronavirus (PCR) NEGATIVE (Negative) Influenza Type A (PCR) NEGATIVE (Negative) Influenza Type B (PCR) NEGATIVE (Negative) RSV RNA Qual (PCR) NEGATIVE (Negative) Imaging Data Chest x-ray: Radiologist's impression: [facility] [place], [place] [id number] ReportSigned Patient: Samara TaylorMR#: [id number]: [id number]:[id number]/Sex: 50 / FADM Date: 01/27/21Loc: EDAttending Dr: Ordering Physician: Chad Barragan NP Date of Service: 01/27/21 Procedure(s): XR chest 1V Accession Number(s): [id number] cc: Chad Barragan [employer] SUPERVISOR~ EXAMINATION: XR CHEST CLINICAL INFORMATION: Shortness of breath COMPARISON: 10/02/2020 TECHNIQUE: Frontal view of the chest was obtained. FINDINGS: CT compatible left chest wall port terminates near the cavoatrial junction. The lungs are well expanded. There is no focal consolidation, edema, or effusion. No pneumothorax. The cardiomediastinal silhouette is within normal limits. No acute osseous abnormality. XR/XR chest 1V IMPRESSION: Clear lungs. Dictated By:Joseluis Arora MDSigned By:<Electronically signed by Joseluis Arora MD in OV>01/27/21 1340 DD/ 1230TD/TT: Telegraphic Typewriter Operator: SATHYA ECG Data Interpretation: Normal sinus rhythm HR 98 Low voltage QRS Cannot rule out Anterior infarct (cited on or before 03-MAY-2019) Abnormal ECG When compared with ECG of 02-DEC-2020 21:49, No significant change was found Discharge Plan Discharge Clinical Impression: Acute viral syndrome Sun exposure, mild Qualifiers: Encounter type: initial encounter Qualified Code(s): X32.XXXA - Exposure to sunlight, initial encounter Patient Disposition: Home, Self-Care Instructions: Sunscreen (On the skin), Viral Syndrome (ED) Additional Instructions: Your blood work was overall reassuring The redness to the lower legs anterior church area is from the mild sunburn Supportive care discussed Your COVID test was negative Her chest x-ray was okay Your mild upper respiratory symptoms will get better with supportive care discussed Return if any concerns or worsening symptoms Thank you Prescriptions: No Action prednisone 50 mg tablet 50 mg PO DAILY 4 Days Qty: 4 RF: 0 doxycycline monohydrate 100 mg capsule 100 mg PO BID 10 Days Qty: 20 RF: 0 diltiazem HCl 180 mg Capsule,Extended Release 24 Hr 180 mg PO DAILY RF: 0 alprazolam 1 mg tablet PO RF: 0 risperidone 0.25 mg Tablet 0.25 mg PO BEDTIME RF: 0 montelukast 10 mg Tablet 10 mg PO BEDTIME RF: 0 topiramate 50 mg Tablet 50 mg PO DAILY RF: 0 fluoxetine 60 mg Tablet 60 mg PO DAILY RF: 0 warfarin 10 mg Tablet 15 mg PO MOTUWETHFR RF: 0 trazodone 100 mg Tablet 100 mg PO BEDTIME RF: 0 warfarin 5 mg Tablet 5 mg PO SUSA RF: 0 morphine 15 mg Tablet 15 mg PO Q6H PRN (Reason: Pain) RF: 0 nitrofurantoin monohyd/m-cryst 100 mg capsule 100 mg PO BID RF: 0 prednisone 20 mg tablet 20 mg PO DAILY Qty: 3 RF: 0 Referrals: Vel Martinez MD [Primary Care Provider] - 1 week Discharge Date/Time: 01/27/21 15:57
--- NOTE | 2021-01-27 12:30 | ECG_ITS ---
Test Reason : SOB Blood Pressure : / mmHG Vent. Rate : 098 BPM Atrial Rate : 098 BPM P-R Int : 162 ms QRS Dur : 080 ms QT Int : 366 ms P-R-T Axes : 038 -14 034 degrees QTc Int : 467 ms Normal sinus rhythm Low voltage QRS Cannot rule out Anterior infarct (cited on or before 03-MAY-2019) Abnormal ECG When compared with ECG of 02-DEC-2020 21:49, No significant change was found Referred By: Chad Barragan Electronically Signed By:AUTUMN BALLARD
[2021-01-27 12:58] LABS: MANUAL DIFF FLAG NO
[2021-01-27 13:00] LABS: Basophils Percent Auto 0.4 % (0-2); Eosinophils Absolute Auto 0.1 X10*3/uL (0.0-0.4); Eosinophils Percent Auto 1.4 % (0-4); Hematocrit 34.5 % (37-47); Hemoglobin 10.7 g/dl (12.0-16.0); Imm Gran Abs Auto 0.04 X10*3/uL (0.00-0.03); Imm Gran Pct Auto 0.5 % (0.0-0.4); Lymphocytes Absolute Auto 1.2 X10*3/uL (1.2-4.9); Lymphocytes Percent Auto 15.5 % (20-40); Mean Corpuscular Hemoglobin 26.6 pg (27.0-33.0); Mean Corpuscular Volume 85.6 fL (80-98); Mean Platelet Volume 12.7 fL (9.4-12.3); Monocytes Absolute Auto 0.6 X10*3/uL (0.1-1.2); Monocytes Percent Auto 7.4 % (2-11); Neutrophils Absolute Auto 5.7 X10*3/uL (2.0-8.3); Neutrophils Percent Auto 74.8 % (45-73); Platelet Count 256 X10*3/uL (160-400); Red Blood Count 4.03 X10*6/uL (4.20-5.50); Red Cell Distribution Width 14.8 % (11.0-16.0); White Blood Count 7.6 X10*3/uL (4.8-10.8)
[2021-01-27 13:07] LABS: INTERNATIONAL NORM RATIO 2.9 (0.9-1.1); Prothrombin Time 34.7 SEC (10.8-13.0)
[2021-01-27 13:10] LABS: D Dimer < 200 NG/ML; Partial Thromboplastin Time 42.2 SEC (24.1-38.0)
[2021-01-27 13:32] LABS: Lactic Acid 2.1 mmol/L (0.5-2.0)
[2021-01-27 13:32] LABS: Alanine Aminotransferase 24 U/L (0-31); Albumin Level 4.2 g/dL (3.5-5.0); Alkaline Phosphatase 85 U/L (39-117); Anion Gap 18 (12-20); Aspartate Amino Transferase 31 U/L (5-31); Bilirubin Total 0.2 mg/dL (0.0-1.0); Blood Urea Nitrogen 9 mg/dL (9-16); C Reactive Protein 1.27 mg/dL (< or = 0.50); Calcium 8.7 mg/dL (8.4-10.2); Carbon Dioxide 17 mmol/L (22-29); Chloride 111 mmol/L (96-108); Creatinine Clr Calc Pharmacy 96.7; Estimated Glomerular Filt Rate > 60; Glucose Random 99 mg/dL (60-115); Sodium 141 mmol/L (135-145); Total Protein 6.8 g/dL (6.5-8.0)
[2021-01-27 13:39] LABS: B Type Natriuretic Peptide 20 pg/mL (<100); Troponin-I High Sensitivity 3.6 ng/L (<3.5-17.0)
[2021-01-27] MEDS: ondansetron HCL 4 MG/2 ML VIAL IVPUSH (14:09)
[2021-01-27 14:53] VITALS: BP 144/74; PULSE 99; RESP 18; TEMP 37.1; O2SAT 96
[2021-01-27 14:57] LABS: Reflex Lactate? Lactic Acid Added
[2021-01-27 15:03] LABS: Influenza A PCR NEGATIVE (Negative); Influenza B PCR NEGATIVE (Negative); Resp Syncy Virus RNA Qual PCR NEGATIVE (Negative); SARS COV2 PCR INHOUSE NEGATIVE (Negative)
--- NOTE | 2021-01-27 15:55 | PC.NURSE ---
[employer] SUPER[employer] aware of lacti acid of 2.1. At this time he does not feel a lactic acid repeat is necessary and he is comfortable with discharge.
== END 2021-01-27 15:57 | disposition home or self-care (01) ==
PROVIDERS: Nurse Practitioner Primary Care; Emergency Provider Emergency Medicine Emergency Medical Services; PCP Family Medicine
DX: B34.9 Viral infection, unspecified (principal); Z20.822 Contact with and (suspected) exposure to COVID-19; L55.0 Sunburn of first degree; I11.0 Hypertensive heart disease with heart failure; I50.9 Heart failure, unspecified; F41.9 Anxiety disorder, unspecified; J45.909 Unspecified asthma, uncomplicated; I48.91 Unspecified atrial fibrillation; F17.200 Nicotine dependence, unspecified, uncomplicated; Z79.01 Long term (current) use of anticoagulants
CPT/HCPCS: 0241U; 36415; 71045; 80053; 83605; 83880; 84484; 85025; 85379; 85610; 85730; 86140; 87040; 93005; 96374; 99283; 99284; J2405

== ENCOUNTER 2021-02-16 11:43 | Inpatient (IN) | payer MEDICARE, MEDICAID, SELFPAY ==
[2021-02-16] VITALS (14 sets, daily range): BP systolic 105–162; BP diastolic 77–115; PULSE 101–133; RESP 13–39; TEMP 37.3; O2SAT 96–100; BMI 41.0
--- NOTE | 2021-02-16 | ECG_ITS ---
Test Reason : CHEST PRESSURE Blood Pressure : / mmHG Vent. Rate : 120 BPM Atrial Rate : 120 BPM P-R Int : 146 ms QRS Dur : 074 ms QT Int : 326 ms P-R-T Axes : 050 -16 047 degrees QTc Int : 460 ms Sinus tachycardia Possible Inferior infarct , age undetermined Anterolateral infarct (cited on or before 03-MAY-2019) Abnormal ECG When compared with ECG of 27-JAN-2021 12:50, No significant change was found Referred By: Blade Luna Electronically Signed By:LITTLE ROONEY MD
--- NOTE | ~2021-02-16 | XR_ITS ---
EXAMINATION: XR CHEST CLINICAL INFORMATION: Asthma COMPARISON: Previous chest x-ray most recent 01/27/2021 TECHNIQUE: Frontal view of the chest was obtained. FINDINGS: The cardiac and mediastinal contours are normal. The lungs are clear. There is no pleural effusion or pneumothorax. There is a left jugular port with tip projecting over the cavoatrial junction. Bony structures are unremarkable. XR/XR chest 1V IMPRESSION: No evidence for acute disease in the chest.
--- NOTE | 2021-02-16 12:48 | ED.SOB ---
HPI - SOB/Dyspnea General Chief Complaint: Dyspnea Stated Complaint: DIFF BREATHING Time Seen by Provider: 02/16/21 12:40 Source: patient Mode of arrival: ambulatory Limitations: no limitations History of Present Illness HPI Narrative: 50-year-old female with a past medical history of asthma with previous intubations. AFib, CHF, DVT, HTN, obesity and depression and anxiety who presents with shortness of breath since 03:00. Patient states she took all of her normal asthma medications and gave herself a nebulizer treatment with albuterol but none of these medications helped. She is currently extremely short of breath, sweating and coughing. Related Data Home Medications Medication Instructions Recorded Confirmed diltiazem HCl 180 mg PO DAILY 09/03/20 02/16/21 fluoxetine 60 mg PO DAILY 09/03/20 02/16/21 montelukast 10 mg PO BEDTIME 09/03/20 02/16/21 risperidone 0.5 mg PO BEDTIME 09/03/20 02/16/21 topiramate 50 mg PO BEDTIME 09/03/20 02/16/21 trazodone 150 mg PO BEDTIME 09/03/20 02/16/21 cyclobenzaprine 5 mg PO BID PRN 02/16/21 02/16/21 diphenhydramine HCl [Benadryl] 25 mg PO Q6H PRN 02/16/21 02/16/21 furosemide 80 mg PO DAILY PRN 02/16/21 02/16/21 hydromorphone 2 mg PO Q6H PRN 02/16/21 02/16/21 omeprazole 40 mg PO BID@0630,1630 02/16/21 02/16/21 warfarin 12.5 mg PO DAILY@1800 02/16/21 02/16/21 Allergies Allergy/AdvReac Type Severity Reaction Status Date / Time dexamethasone [From DECADRON] Allergy Severe HIVES Verified 02/16/21 12:18 oxycodone [From PERCOCET] Allergy Severe HIVES Verified 02/16/21 12:18 azithromycin Allergy Intermediate ITCHING Verified 02/16/21 12:18 [From ZITHROMAX Z-XANDER] acetaminophen [Percocet] Allergy Unknown Unknown Verified 02/16/21 12:18 amoxicillin [AMOXICILLIN] Allergy Unknown UNKNOWN, Verified 02/16/21 12:18 hives, swelling budesonide [From SYMBICORT] Allergy Unknown UNKNOWN Verified 02/16/21 12:18 cefpodoxime [From VANTIN] Allergy Unknown UNKNOWN Verified 02/16/21 12:18 cefuroxime [From CEFTIN] Allergy Unknown UNKNOWN Verified 02/16/21 12:18 Cephalosporins Allergy Unknown UNKNOWN Verified 02/16/21 12:18 [CEPHALOSPORINS] ciprofloxacin [From CIPRO] Allergy Unknown UNKNOWN Verified 02/16/21 12:18 diazepam [DIAZEPAM] Allergy Unknown ITCHING Verified 02/16/21 12:18 diphtheria,pertussis Allergy Unknown Unknown Verified 02/16/21 12:18 (acellular),te [Adacel(Tdap Adolesn/Adult)(PF)] erythromycin base Allergy Unknown UNKNOWN Verified 02/16/21 12:18 [ERYTHROMYCIN BASE] fluticasone [Advair Diskus] Allergy Unknown Unknown Verified 02/16/21 12:18 formoterol [From SYMBICORT] Allergy Unknown UNKNOWN Verified 02/16/21 12:18 hydrocodone [From VICODIN] Allergy Unknown unknown Verified 02/16/21 12:18 Iodinated Contrast Media Allergy Unknown UNKNOWN Verified 02/16/21 12:18 [CONTRAST, IV] levofloxacin [From LEVAQUIN] Allergy Unknown UNKNOWN Verified 02/16/21 12:18 penicillin G Allergy Unknown Unknown Verified 02/16/21 12:18 penicillin V Allergy Unknown Unknown Verified 02/16/21 12:18 Penicillins [PENICILLINS] Allergy Unknown UNKNOWN Verified 02/16/21 12:18 salmeterol [Advair Diskus] Allergy Unknown Unknown Verified 02/16/21 12:18 sertraline [From ZOLOFT] Allergy Unknown SUICIDAL Verified 02/16/21 12:18 Sulfa (Sulfonamide Allergy Unknown hives Verified 02/16/21 12:18 Antibiotics) tetanus and diphtheria Allergy Unknown UNKNOWN Verified 02/16/21 12:18 toxoids [TETANUS & DIPHTHERIA TOXOIDS] Vantin Allergy Unknown Unknown Verified 02/16/21 12:18 ketorolac [From TORADOL] AdvReac Mild ITCHING Verified 02/16/21 12:18 Ceftin Allergy Unknown Unknown Uncoded 12/02/20 21:41 IV dye Allergy Unknown Unknown Uncoded 12/02/20 21:41 Symbicort Allergy Unknown Unknown Uncoded 12/02/20 21:41 Tetanus Allergy Unknown Unknown Uncoded 12/02/20 21:41 Erythromycin Allergy Unknown Uncoded 12/02/20 21:41 Review of Systems Review of Systems: Yes all other systems are reviewed and are negative [facility] Past Medical History Medical History Anxiety Asthma Atrial fibrillation CHF (congestive heart failure) Depression DVT (deep venous thrombosis) Hypertension Morbid obesity Social History Social History Household Members: Family Housing: House Alcohol intake: current Alcohol intake frequency: holidays/special occasions only Smoking Status: Never smoker Second Hand Smoke Exposure: No Use of substances other than those prescribed or required for medical reasons: No Advance Directives: Yes Advance Directives on File: Yes Advance Directives Date on File: 09/06/20 service: No Current occupational status: unemployed Physical Exam Vital Signs: Vital Signs: Last Vital Signs Temp 99.2 F 02/16/21 16:00 Pulse 118 H 02/16/21 16:00 Resp 26 H 02/16/21 16:50 BP 162/101 H 02/16/21 16:00 Pulse Ox 100 02/16/21 16:00 Body Mass Index 41.0 Const: General: cooperative, acute distress respiratory, anxious and diaphoretic Nutritional Appearance: obese Orientation/consciousness: patient oriented x3 Limitations: no limitations Eyes: General: appearance normal, both eyes and all related structures Neck: Neck: Yes normal visual inspection and Yes full ROM Resp: Effort & Inspection: not able to speak in complete sentences (speaking in short sentence), audible wheezes, Actively coughing, no grunting, labored, no nasal flaring, respiratory distress, tachypneic and no tripod positioning Cardio: Rate: tachycardic Rhythm: regular rhythm Neuro: General: patient oriented x3 Course Course Course Narrative: 50-year-old female with a past medical history of asthma with previous intubations. AFib, CHF, DVT, HTN, obesity and depression and anxiety who presents with shortness of breath since 03:00. Patient is tachycardic, dyspneic, tachypneic and diaphoretic. Called respiratory stat for BiPAP, will give magnesium Solu-Medrol and a breathing treatment while we wait. Dr Mccoy aware of pt, advised BiPAP and ketamine. Reevaluation(s) Reevaluation #1: Gave patient another 25 mg of ketamine as she was starting to struggle and become tachypneic. Time: 13:34 Reevaluation #2: Text to sanforizing machine operator for admission, patient unable to come off BiPAP, soon is BiPAP is removed she starts coughing and can not breathe. Dr Baxter recommended fentanyl and ativan. Pt off BiPAP, still coughing but O2 sat in high 90's. ABG not drawn yet... Time: 16:37 Reevaluation #3: Dr Mas advised to run the case by the hand suture winder at 19:00. Signing out patient to CARA Mckeon in the ED. Time: 18:08 MDM - SOB/Dyspnea Medical Records Attestation: I reviewed the patient's medical records. Lab Data Attestation: I reviewed the patient's lab results. Result diagrams: 02/16/21 13:23 02/16/21 13:23 Labs: Lab Results 02/16/21 02/16/21 02/16/21 Range/Units 13:23 13:23 13:23 WBC 6.0 (4.8-10.8) X10*3/uL RBC 3.87 L (4.20-5.50) X10*6/uL Hgb 10.1 L (12.0-16.0) g/dl Hct 32.5 L (37-47) % MCV 84.0 (80-98) fL MCH 26.1 L (27.0-33.0) pg MCHC 31.1 (31.0-35.0) g/dl RDW 15.9 (11.0-16.0) % Plt Count 226 (160-400) X10*3/uL MPV 12.1 (9.4-12.3) fL Immature Gran % (Auto) 0.3 (0.0-0.4) % Neut % (Auto) 63.5 (45-73) % Lymph % (Auto) 28.2 (20-40) % [place] % (Auto) 6.2 (2-11) % Eos % (Auto) 1.5 (0-4) % Baso % (Auto) 0.3 (0-2) % Lymph # (Auto) 1.7 (1.2-4.9) X10*3/uL [place] # (Auto) 0.4 (0.1-1.2) X10*3/uL Eos # (Auto) 0.1 (0.0-0.4) X10*3/uL Baso # (Auto) 0.0 (0.0-0.2) X10*3/uL Abs Immat Gran (auto) 0.02 (0.00-0.03) X10*3/uL Absolute Neuts (auto) 3.8 (2.0-8.3) X10*3/uL Absolute Nucleated RBC 0.000 (0.0-0.012) X10*3/uL Nucleated RBC % (auto) 0.0 (0.0-0.2) /100WBC Hold Purple Top SEE NOTE Hold Blue Top SEE NOTE O2 Saturation % ABG pH at Pt Temp (7.35-7.45) ABG pH (Temp Correct) (7.35-7.45) ABG pCO2 at Pt Temp (32-45) mmHg ABG pCO2 (Temp Corrct (32-45) mmHg ABG pO2 at Pt Temp (83-108) mmHg ABG pO2 (Temp Correct (83-108) ABG HCO3 (22-26) mmol/L ABG Base Excess (Actual) mmol/L Sodium (135-145) mmol/L Potassium (3.3-5.1) mmol/L Chloride (96-108) mmol/L Carbon Dioxide (22-29) mmol/L Anion Gap (12-20) BUN (9-16) mg/dL Creatinine (0.5-1.4) mg/dL Estim Creat Clear Calc Estimated GFR Random Glucose (60-115) mg/dL Calcium (8.4-10.2) mg/dL Hold Yellow Top 02/16/21 02/16/21 02/16/21 Range/Units 13:23 13:23 17:20 WBC (4.8-10.8) X10*3/uL RBC (4.20-5.50) X10*6/uL Hgb (12.0-16.0) g/dl Hct (37-47) % MCV (80-98) fL MCH (27.0-33.0) pg MCHC (31.0-35.0) g/dl RDW (11.0-16.0) % Plt Count (160-400) X10*3/uL MPV (9.4-12.3) fL Immature Gran % (Auto) (0.0-0.4) % Neut % (Auto) (45-73) % Lymph % (Auto) (20-40) % [place] % (Auto) (2-11) % Eos % (Auto) (0-4) % Baso % (Auto) (0-2) % Lymph # (Auto) (1.2-4.9) X10*3/uL [place] # (Auto) (0.1-1.2) X10*3/uL Eos # (Auto) (0.0-0.4) X10*3/uL Baso # (Auto) (0.0-0.2) X10*3/uL Abs Immat Gran (auto) (0.00-0.03) X10*3/uL Absolute Neuts (auto) (2.0-8.3) X10*3/uL Absolute Nucleated RBC (0.0-0.012) X10*3/uL Nucleated RBC % (auto) (0.0-0.2) /100WBC Hold Purple Top Hold Blue Top O2 Saturation 98.0 % ABG pH at Pt Temp 7.46 H (7.35-7.45) ABG pH (Temp Correct) 7.45 (7.35-7.45) ABG pCO2 at Pt Temp 24 L (32-45) mmHg ABG pCO2 (Temp Corrct 24 L (32-45) mmHg ABG pO2 at Pt Temp 116 H (83-108) mmHg ABG pO2 (Temp Correct 118 H (83-108) ABG HCO3 17 L (22-26) mmol/L ABG Base Excess (Actual) -4.7 mmol/L Sodium 141 (135-145) mmol/L Potassium 3.2 L D (3.3-5.1) mmol/L Chloride 109 H (96-108) mmol/L Carbon Dioxide 20 L (22-29) mmol/L Anion Gap 15 (12-20) BUN 14 D (9-16) mg/dL Creatinine 0.85 (0.5-1.4) mg/dL Estim Creat Clear Calc 80.8 Estimated GFR > 60 Random Glucose 146 H D (60-115) mg/dL Calcium 9.0 (8.4-10.2) mg/dL Hold Yellow Top See Note ABG Data ABG results: PH 7.46, pCO2 24, PO2 116, bicarb 17, negative base excess -4.7 Attestation: I personally reviewed and interpreted this ABG as follows: Interpretation: No acute process seen Imaging Data Chest x-ray: Attestation: I personally reviewed and interpreted this imaging study as follows: Radiologist's impression: [facility] [place] [id number] ReportSigned Patient: Samara TaylorMR#: [id number]: [id number]:[id number]/Sex: 50 / FADM Date: 02/16/21Loc: EDAttending Dr: Ordering Physician: Domenica Hilario PA-C Date of Service: 02/16/21 Procedure(s): XR chest 1V Accession Number(s): [id number] cc: Domenica Hilario PA-C~ EXAMINATION: XR CHEST CLINICAL INFORMATION: Asthma COMPARISON: Previous chest x-ray most recent 01/27/2021 TECHNIQUE: Frontal view of the chest was obtained. FINDINGS: The cardiac and mediastinal contours are normal. The lungs are clear. There is no pleural effusion or pneumothorax. There is a left jugular port with tip projecting over the cavoatrial junction. Bony structures are unremarkable. XR/XR chest 1V IMPRESSION: No evidence for acute disease in the chest. Dictated By:LEE DUARTE MDSigned By:<Electronically signed by LEE DUARTE MD in OV>02/16/21 1553 DD/ 1540TD/TT: Substance Abuse Clinician: VENKAT Discharge Plan Discharge Clinical Impression: Asthma with exacerbation Qualifiers: Asthma severity: moderate Asthma persistence: persistent Qualified Code(s): J45.41 - Moderate persistent asthma with (acute) exacerbation Patient Disposition: Admitted As Inpatient
[2021-02-16] MEDS: Ketamine HCl/NS 50 MG/5 ML SYRINGE 25 MG IVPUSH (13:12)
[2021-02-16] MEDS: methylPREDNISolone Sod Succ 125 MG/2 ML VIAL IVPUSH (13:16)
[2021-02-16] MEDS: Magnesium Sulfate/H2O 2 GM/50 ML PIGGYBACK IV (13:20)
[2021-02-16 13:27] LABS: MANUAL DIFF FLAG NO
[2021-02-16] MEDS: Albuterol Sulfate (0.083%) 2.5 MG/3 ML VIAL.NEB 10 MG INHALE (13:27)
[2021-02-16 13:32] LABS: Basophils Percent Auto 0.3 % (0-2); Eosinophils Absolute Auto 0.1 X10*3/uL (0.0-0.4); Eosinophils Percent Auto 1.5 % (0-4); Hematocrit 32.5 % (37-47); Hemoglobin 10.1 g/dl (12.0-16.0); Imm Gran Abs Auto 0.02 X10*3/uL (0.00-0.03); Imm Gran Pct Auto 0.3 % (0.0-0.4); Lymphocytes Absolute Auto 1.7 X10*3/uL (1.2-4.9); Lymphocytes Percent Auto 28.2 % (20-40); Mean Corpuscular HGB Conc 31.1 g/dl (31.0-35.0); Mean Corpuscular Hemoglobin 26.1 pg (27.0-33.0); Mean Platelet Volume 12.1 fL (9.4-12.3); Monocytes Absolute Auto 0.4 X10*3/uL (0.1-1.2); Monocytes Percent Auto 6.2 % (2-11); Neutrophils Absolute Auto 3.8 X10*3/uL (2.0-8.3); Neutrophils Percent Auto 63.5 % (45-73); Platelet Count 226 X10*3/uL (160-400); Red Blood Count 3.87 X10*6/uL (4.20-5.50); Red Cell Distribution Width 15.9 % (11.0-16.0)
[2021-02-16 13:52] LABS: Anion Gap 15 (12-20); Blood Urea Nitrogen 14 mg/dL (9-16); Carbon Dioxide 20 mmol/L (22-29); Chloride 109 mmol/L (96-108); Creatinine Clr Calc Pharmacy 80.8; Estimated Glomerular Filt Rate > 60; Glucose Random 146 mg/dL (60-115); Potassium 3.2 mmol/L (3.3-5.1); Sodium 141 mmol/L (135-145)
[2021-02-16] MEDS: Ketamine HCl 500 MG/5 ML VIAL 25 MG IVPUSH (14:03)
--- NOTE | 2021-02-16 14:08 | PC.NURSE ---
PP ACCESS OBTAINED. MAG GTT RUNNING. PT TOLERATING BIPAP WELL, DROWSY THOUGH EASILY ROUSED BY NAME, ORIENTED. NO LONGER TACHYPNEIC, THOUGH COUGHING DID RESUME. ADDITIONAL KETAMINE ADMINISTERED, WITNESSED ON WASTE BY RN. BP HAS REMAINED WNL. PLAN FOR ADMISSION, PT AWARE.
--- NOTE | 2021-02-16 16:21 | PC.NURSE ---
Patient remains on BIpap RR 28 100% spo2. ST on tele 110's. HTN. Tremors noted states shes not cold- likely from long albuterol treatments. Reports 8/10 central nonradiating chest pain, requesting pain medication.
--- NOTE | 2021-02-16 16:37 | PC.NURSE ---
Patient trailed off BIPAP by . Unable to tolerate. Coughing uncontrollably, face reddened. Back on BIPAP now 100% spo2. Pt aware she will be admitted to icu.
[2021-02-16] MEDS: fentaNYL citrate/PF 100 MCG/2 ML VIAL 50 MCG IVPUSH (16:59)
[2021-02-16] MEDS: LORazepam 1 MG TABLET PO (17:15)
[2021-02-16 17:28] LABS: ABG Refer to POC result
[2021-02-16 17:29] LABS: ABG Base Excess -4.7 mmol/L; ABG HCO3 17 mmol/L (22-26); ABG pCO2 24 mmHg (32-45); ABG pCO2 TC 24 mmHg (32-45); ABG pH 7.46 (7.35-7.45); ABG pH TC 7.45 (7.35-7.45); ABG pO2 116 mmHg (83-108); ABG pO2 TC 118 (83-108)
[2021-02-16] MEDS: Albuterol/Iprat 2.5/0.5MG 3 ML AMPUL.NEB INHALE ×2 (20:09→20:22)
--- NOTE | 2021-02-16 20:28 | PC.NURSE ---
pt is now awake nonstop coughing, attempting ekg. sat 99% o 3l nc.
[2021-02-16] MEDS: traZODone HCL 50 MG TABLET 150 MG PO (20:35)
[2021-02-16] MEDS: Topiramate 25 MG TABLET 50 MG PO (20:35)
[2021-02-16] MEDS: risperiDONE 0.5 MG TABLET PO (20:35)
[2021-02-16] MEDS: Montelukast Sodium 10 MG TABLET PO (20:36)
[2021-02-16] MEDS: diphenhydrAMINE HCL 50 MG/ML VIAL 25 MG IVPUSH (21:10)
[2021-02-16] MEDS: methylPREDNISolone Sod Succ 125 MG/2 ML VIAL 60 MG IVPUSH (21:10)
[2021-02-16] MEDS: guaiFEN/Codeine SF 200/20/10ML 10 ML LIQUID 5 ML PO (21:19)
[2021-02-16] MEDS: Morphine Sulfate 4 MG/ML CARTRIDGE IVPUSH (21:24)
--- NOTE | 2021-02-16 21:31 | PC.NURSE ---
pt medicated with morphoine 4 mg iv per verbal order from hospitalist. Rolando from ice present at bedside as well. pt still has the non stop coughing, sat 98% on 3l and now changed to highflow at this time.
--- NOTE | 2021-02-16 21:34 | PC.NURSE ---
pt lungs tights wheezing, non prod cough, medicated with cough med, morphine, solumederal, benadry,
--- NOTE | 2021-02-16 22:20 | P.HPHOSP_ITS ---
History of Present Illness Date of Service: 02/16/21 Chief Complaint: SOB 50-year-old female with a past medical history of hypertension, morbid obesity, history of DVT, depression, CHF, anxiety, history of AFib, history of very poor peripheral access status post Port-A-Cath; multiple allergies to medications presented to the hospital today with a chief complaint of shortness of breath. Patient reports that she has been having shortness of breath for the past 2 days. Symptoms are gradually worsening hence decided to come to the ER for further evaluation. Denies any chest pain palpitations. Denies any numbness tingling. Denies any fevers. Reports dry cough. Denies any urinary symptoms. Review of all other systems is negative except mentioned above ER course: Per ER team patient on presentation noted to be in mild distress placed on BiPAP briefly and subsequently transitioned to supplemental oxygen when acid cannula. Given nebs and steroids [facility] Medical History Anxiety Asthma Atrial fibrillation CHF (congestive heart failure) Depression DVT (deep venous thrombosis) Hypertension Morbid obesity Social History Household Members: Spouse and Children Housing: Apartment Do you presently have visiting nurse or other home services: No Alcohol intake: current Alcohol intake frequency: holidays/special occasions only Smoking Status: Never smoker Second Hand Smoke Exposure: No Use of substances other than those prescribed or required for medical reasons: No Currently Displaying Signs/Symptoms of Drug Intoxication Withdrawal: No Have you been hit, kicked, punched, or otherwise hurt by someone within the past year? If so, by whom?: No Do you feel safe in your current relationship?: Yes Is there a partner from a previous relationship who is making you feel unsafe now?: No Are you made to feel afraid or neglected: No Advance Directives: Yes Advance Directives on File: Yes Advance Directives Date on File: 09/06/20 Do you have thoughts of harming others: None Do you have a plan to hurt others: No Plan Recently lost weight without trying: No service: No Current occupational status: disabled Meds Allergies Allergy/AdvReac Type Severity Reaction Status Date / Time dexamethasone [From DECADRON] Allergy Severe HIVES Verified 02/16/21 12:18 oxycodone [From PERCOCET] Allergy Severe HIVES Verified 02/16/21 12:18 azithromycin Allergy Intermediate ITCHING Verified 02/16/21 12:18 [From ZITHROMAX Z-XANDER] acetaminophen [Percocet] Allergy Unknown Unknown Verified 02/16/21 12:18 amoxicillin [AMOXICILLIN] Allergy Unknown UNKNOWN, Verified 02/16/21 12:18 hives, swelling budesonide [From SYMBICORT] Allergy Unknown UNKNOWN Verified 02/16/21 12:18 cefpodoxime [From VANTIN] Allergy Unknown UNKNOWN Verified 02/16/21 12:18 cefuroxime [From CEFTIN] Allergy Unknown UNKNOWN Verified 02/16/21 12:18 Cephalosporins Allergy Unknown UNKNOWN Verified 02/16/21 12:18 [CEPHALOSPORINS] ciprofloxacin [From CIPRO] Allergy Unknown UNKNOWN Verified 02/16/21 12:18 diazepam [DIAZEPAM] Allergy Unknown ITCHING Verified 02/16/21 12:18 diphtheria,pertussis Allergy Unknown Unknown Verified 02/16/21 12:18 (acellular),te [Adacel(Tdap Adolesn/Adult)(PF)] erythromycin base Allergy Unknown UNKNOWN Verified 02/16/21 12:18 [ERYTHROMYCIN BASE] fluticasone [Advair Diskus] Allergy Unknown Unknown Verified 02/16/21 12:18 formoterol [From SYMBICORT] Allergy Unknown UNKNOWN Verified 02/16/21 12:18 hydrocodone [From VICODIN] Allergy Unknown unknown Verified 02/16/21 12:18 Iodinated Contrast Media Allergy Unknown UNKNOWN Verified 02/16/21 12:18 [CONTRAST, IV] levofloxacin [From LEVAQUIN] Allergy Unknown UNKNOWN Verified 02/16/21 12:18 penicillin G Allergy Unknown Unknown Verified 02/16/21 12:18 penicillin V Allergy Unknown Unknown Verified 02/16/21 12:18 Penicillins [PENICILLINS] Allergy Unknown UNKNOWN Verified 02/16/21 12:18 salmeterol [Advair Diskus] Allergy Unknown Unknown Verified 02/16/21 12:18 sertraline [From ZOLOFT] Allergy Unknown SUICIDAL Verified 02/16/21 12:18 Sulfa (Sulfonamide Allergy Unknown hives Verified 02/16/21 12:18 Antibiotics) tetanus and diphtheria Allergy Unknown UNKNOWN Verified 02/16/21 12:18 toxoids [TETANUS & DIPHTHERIA TOXOIDS] Vantin Allergy Unknown Unknown Verified 02/16/21 12:18 ketorolac [From TORADOL] AdvReac Mild ITCHING Verified 02/16/21 12:18 Ceftin Allergy Unknown Unknown Uncoded 12/02/20 21:41 IV dye Allergy Unknown Unknown Uncoded 12/02/20 21:41 Symbicort Allergy Unknown Unknown Uncoded 12/02/20 21:41 Tetanus Allergy Unknown Unknown Uncoded 12/02/20 21:41 Erythromycin Allergy Unknown Uncoded 12/02/20 21:41 Active Medications: Current Medications Generic Name Dose Route Start Last Admin Trade Name Freq PRN Reason Stop Dose Admin Acetaminophen 650 mg 02/16/21 19:45 Acetaminophen 325 Mg Tablet PO Q6H PRN Pain, Mild (Pain Scale 1-3) Albuterol/Ipratropium 3 ml 02/16/21 19:45 02/16/21 20:22 Albuterol/Iprat 2.5/0.5mg 3 Ml Ampul.Neb INHALE 3 ml RQ4H PRN Administration Shortness of Breath/Wheezing Albuterol/Ipratropium 3 ml 02/16/21 20:00 02/16/21 20:09 Albuterol/Iprat 2.5/0.5mg 3 Ml Ampul.Neb INHALE 3 ml RQ6H WHILE AWAKE ONE[place] Administration Cyclobenzaprine HCl 5 mg 02/16/21 19:50 Cyclobenzaprine Hcl 5 Mg Tablet PO BID PRN Muscle Pain Diltiazem HCl 180 mg 02/17/21 09:00 Diltiazem Hcl Cd 180 Mg Cap.Er.24h PO DAILY [place] Protocol Diphenhydramine HCl 25 mg 02/16/21 19:50 Diphenhydramine Hcl 25 Mg Tablet PO Q6H PRN Allergy Symptoms Diphenhydramine HCl 25 mg 02/16/21 21:00 02/16/21 21:10 Diphenhydramine Hcl 50 Mg/Ml Vial IVPUSH 25 mg Q8H [place] Administration Docusate Sodium 100 mg 02/16/21 19:45 Docusate Sodium 100 Mg Capsule PO DAILY PRN Constipation Fluoxetine HCl 60 mg 02/17/21 09:00 Fluoxetine Hcl 20 Mg Capsule PO DAILY [facility] Furosemide 80 mg 02/16/21 19:50 Furosemide 40 Mg Tablet PO DAILY PRN Edema Protocol Guaifenesin/Codeine Phosphate 5 ml 02/16/21 20:39 02/16/21 21:19 Guaifen/Codeine Sf 200/20/10ml 10 Ml Liquid PO 5 ml Q6H PRN Administration cough Methylprednisolone Sodium Succinate 60 mg 02/16/21 21:00 02/16/21 21:10 Methylprednisolone Sod Succ 125 Mg/2 Ml Vial IVPUSH 60 mg Q8H [place] Administration Montelukast Sodium 10 mg 02/16/21 21:00 02/16/21 20:36 Montelukast Sodium 10 Mg Tablet PO 10 mg BEDTIME [facility] Administration Morphine Sulfate 2 mg 02/16/21 22:15 Morphine Sulfate 2 Mg/Ml Cartridge IVPUSH Q4H PRN anxiety/restlessness Omeprazole 40 mg 02/17/21 06:30 Omeprazole 40 Mg Capsule.Dr TRAORE BID@2830,6240 [facility] Ondansetron HCl 4 mg 02/16/21 19:45 Ondansetron Hcl 4 Mg/2 Ml Vial IVPUSH Q8H PRN Nausea and Vomiting Pharmacy Consult 1 each 02/16/21 13:53 Consult Rx Perform Med Rec MISCELLANE ONCE PRN Consult order Risperidone 0.5 mg 02/16/21 21:00 02/16/21 20:35 Risperidone 0.5 Mg Tablet PO 0.5 mg BEDTIME [place] Administration Sodium Chloride 3 ml 02/17/21 00:00 0.9 % Sodium Chloride Flush 3 Ml Syringe IVFLUSH QSHIFT [facility] Topiramate 50 mg 02/16/21 21:00 02/16/21 20:35 Topiramate 25 Mg Tablet PO 50 mg BEDTIME [facility] Administration Trazodone HCl 150 mg 02/16/21 21:00 02/16/21 20:35 Trazodone Hcl 50 Mg Tablet PO 150 mg BEDTIME [facility] Administration Warfarin Sodium 12.5 mg 02/17/21 18:00 Warfarin Sodium 2.5 Mg Tablet PO DAILY@1800 [facility] Home Medications Medication Instructions Recorded Confirmed Last Taken Type diltiazem HCl 180 mg PO DAILY 09/03/20 02/16/21 02/16/21 History fluoxetine 60 mg PO DAILY 09/03/20 02/16/21 02/16/21 History montelukast 10 mg PO BEDTIME 09/03/20 02/16/21 02/15/21 History risperidone 0.5 mg PO BEDTIME 09/03/20 02/16/21 02/15/21 History topiramate 50 mg PO BEDTIME 09/03/20 02/16/21 02/15/21 History trazodone 150 mg PO BEDTIME 09/03/20 02/16/21 02/15/21 History cyclobenzaprine 5 mg PO BID PRN 02/16/21 02/16/21 Unknown History diphenhydramine HCl [Benadryl] 25 mg PO Q6H PRN 02/16/21 02/16/21 Unknown H istory furosemide 80 mg PO DAILY PRN 02/16/21 02/16/21 Unknown History omeprazole 40 mg PO BID@0630,1630 02/16/21 02/16/21 02/16/21 History warfarin 12.5 mg PO DAILY@1800 02/16/21 02/16/21 Unknown History Physical Exam Vital Signs and Narrative: Vital Signs: Last Vital Signs Temp 99.2 F 02/16/21 16:00 Pulse 114 H 02/16/21 22:15 Resp 39 H 02/16/21 22:15 BP 141/110 H 02/16/21 22:15 Pulse Ox 98 02/16/21 22:15 Body Mass Index 41.0 Gen: Appears be in no acute distress; patient has been coughing; Obese; HEENT: NCAT, Moist mucosa. Pulmonary: Slightly diminished breath sounds. Noted expiratory wheezing. CVS: Normal S1-S2 Abdomen: BS+, Soft, Nontender Extremities: Warm well perfused Neuro: Alert and awake. Results Labs CBC and Chem 7: 02/17/21 07:06 02/17/21 07:06 Labs: Laboratory Results - last 24 hr 02/16/21 02/16/21 02/16/21 13:23 13:23 13:23 MCV 84.0 MCH 26.1 L MCHC 31.1 RDW 15.9 Plt Count 226 MPV 12.1 Immature Gran % (Auto) 0.3 Neut % (Auto) 63.5 Lymph % (Auto) 28.2 [place] % (Auto) 6.2 Eos % (Auto) 1.5 Baso % (Auto) 0.3 Lymph # (Auto) 1.7 [place] # (Auto) 0.4 Eos # (Auto) 0.1 Baso # (Auto) 0.0 Abs Immat Gran (auto) 0.02 Absolute Neuts (auto) 3.8 Absolute Nucleated RBC 0.000 Nucleated RBC % (auto) 0.0 Hold Purple Top SEE NOTE Hold Blue Top SEE NOTE O2 Saturation ABG pH at Pt Temp ABG pH (Temp Correct) ABG pCO2 at Pt Temp ABG pCO2 (Temp Corrct ABG pO2 at Pt Temp ABG pO2 (Temp Correct ABG HCO3 ABG Base Excess (Actual) Anion Gap Estim Creat Clear Calc Estimated GFR Random Glucose Calcium Hold Yellow Top 02/16/21 02/16/21 02/16/21 13:23 13:23 17:20 MCV MCH MCHC RDW Plt Count MPV Immature Gran % (Auto) Neut % (Auto) Lymph % (Auto) [place] % (Auto) Eos % (Auto) Baso % (Auto) Lymph # (Auto) [place] # (Auto) Eos # (Auto) Baso # (Auto) Abs Immat Gran (auto) Absolute Neuts (auto) Absolute Nucleated RBC Nucleated RBC % (auto) Hold Purple Top Hold Blue Top O2 Saturation 98.0 ABG pH at Pt Temp 7.46 H ABG pH (Temp Correct) 7.45 ABG pCO2 at Pt Temp 24 L ABG pCO2 (Temp Corrct 24 L ABG pO2 at Pt Temp 116 H ABG pO2 (Temp Correct 118 H ABG HCO3 17 L ABG Base Excess (Actual) -4.7 Anion Gap 15 Estim Creat Clear Calc 80.8 Estimated GFR > 60 Random Glucose 146 H D Calcium 9.0 Hold Yellow Top See Note Imaging Radiologist's Impressions: Impressions Chest X-Ray 02/16/21 15:40 IMPRESSION: No evidence for acute disease in the chest. Assessment and Plan (1) Asthma with exacerbation: Qualifiers: Asthma persistence: persistent Asthma severity: moderate Qualified Code(s): J45.41 - Moderate persistent asthma with (acute) exacerbation Status: Acute 50-year-old female with a past medical history of hypertension, anxiety, depression, morbid obesity, DVT, AFib, CHF, multiple allergies to medications presented to the hospital with chief complaint of shortness of breath. Noted to be in acute asthma exacerbation Acute asthma exacerbation: Patient was briefly given the BiPAP subsequently transitioned to nasal cannula. Patient is currently placed on high-flow oxygen. Saturating well. Patient noted to be tachycardic and tachypneic-discussed with ICU attending, recommended morphine for rate controlling and anxiety, patient will be closely monitored by ICU team. Continue Solu-Medrol IV t.i.d.-> patient takes Benadryl along with Solu-Medrol g iven her allergies. Nebulizers standing and p.r.n.. DVT/AFib: Continue Coumadin. Monitor INR. Attending INR values from today. History of CHF: Continue home medications. For all other issues, home medications will be continued Code status: Full code
[2021-02-16 22:48] LABS: INTERNATIONAL NORM RATIO 1.9 (0.9-1.1); Prothrombin Time 22.1 SEC (10.8-13.0)
[2021-02-16 23:01] LABS: COVID-19 Test Negative (Negative); IDNOW Serial# 9DD0AD1C
[2021-02-16 23:08] LABS: Troponin-I High Sensitivity < 3.5 ng/L (<3.5-17.0)
[2021-02-17] VITALS (14 sets, daily range): BP systolic 109–132; BP diastolic 58–73; PULSE 78–102; RESP 12–20; TEMP 36.1–37.1; O2SAT 95–98
[2021-02-17] MEDS: Morphine Sulfate 2 MG/ML CARTRIDGE IVPUSH ×5 (00:58→19:52)
--- NOTE | 2021-02-17 03:05 | PC.NURSE ---
pt is sleeping at this time, no sign of distress.
[2021-02-17] MEDS: methylPREDNISolone Sod Succ 125 MG/2 ML VIAL 60 MG IVPUSH ×2 (06:33→12:34)
[2021-02-17] MEDS: Omeprazole 40 MG CAPSULE.DR PO ×2 (06:33→15:33)
[2021-02-17] MEDS: diphenhydrAMINE HCL 50 MG/ML VIAL 25 MG IVPUSH ×3 (06:34→20:55)
--- NOTE | 2021-02-17 07:15 | PC.NURSE ---
Pt alert, oriented x 3. Speaks in full clear sentences. Respirations slightly laboured on high flow O2, O2 saturation 97%. Pt asked for PRN morphine 2mg for 7/10 pain, administered it to patient per DEC. Will continue to monitor.
[2021-02-17 07:17] LABS: Hematocrit 31.3 % (37-47); Hemoglobin 9.7 g/dl (12.0-16.0); Imm Gran Abs Auto 0.03 X10*3/uL (0.00-0.03); Imm Gran Pct Auto 0.5 % (0.0-0.4); Lymphocytes Absolute Auto 0.5 X10*3/uL (1.2-4.9); MANUAL DIFF FLAG SCAN; Mean Corpuscular Hemoglobin 26.2 pg (27.0-33.0); Mean Corpuscular Volume 84.6 fL (80-98); Mean Platelet Volume 12.4 fL (9.4-12.3); Monocytes Absolute Auto 0.1 X10*3/uL (0.1-1.2); Monocytes Percent Auto 0.8 % (2-11); Neutrophils Absolute Auto 5.6 X10*3/uL (2.0-8.3); Neutrophils Percent Auto 90.7 % (45-73); Platelet Count 260 X10*3/uL (160-400); Red Cell Distribution Width 16.1 % (11.0-16.0); SCAN SMEAR FLAG 1; White Blood Count 6.1 X10*3/uL (4.8-10.8)
[2021-02-17 07:23] LABS: INTERNATIONAL NORM RATIO 1.8 (0.9-1.1); Prothrombin Time 21.9 SEC (10.8-13.0)
[2021-02-17 07:43] LABS: SLIDE REVIEW VERIFIED
[2021-02-17 07:46] LABS: Anion Gap 13 (12-20); Blood Urea Nitrogen 15 mg/dL (9-16); Calcium 9.1 mg/dL (8.4-10.2); Carbon Dioxide 20 mmol/L (22-29); Chloride 110 mmol/L (96-108); Creatinine Clr Calc Pharmacy 89.2; Estimated Glomerular Filt Rate > 60; Glucose Random 197 mg/dL (60-115); Magnesium 2.6 mg/dL (1.6-2.6); Potassium 4.3 mmol/L (3.3-5.1); Sodium 139 mmol/L (135-145)
[2021-02-17] MEDS: Albuterol/Iprat 2.5/0.5MG 3 ML AMPUL.NEB INHALE ×3 (08:04→20:10)
[2021-02-17] MEDS: FLUoxetine HCl 20 MG CAPSULE 60 MG PO (09:21)
[2021-02-17] MEDS: dilTIAZem HCL CD 180 MG CAP.ER.24H PO (09:22)
[2021-02-17] MEDS: 0.9 % Sodium Chloride Flush 3 ML SYRINGE IVFLUSH ×3 (09:26→20:59)
--- NOTE | 2021-02-17 10:43 | PC.NURSE ---
Per Hospitalist pt taken off high flow NC, Spo2 staying at 92% on room air at this time.
--- NOTE | 2021-02-17 15:02 | P.PNIM_ITS ---
Subjective Subjective Date of Service: 02/17/21 Interval History: Patient feeling better this morning , complaining of persistent shortness of breath, is on high-flow oxygen finger oximetry 97%, no other acute issues overnight. ROS General no headache , no fever chills. CVS no chest pain, no palpitation. Respiratory sob. Gastrointestinal no nausea no vomiting, no abdominal pain Physical Exam Vital Signs: Vital Signs: Last Vital Signs Temp 98.4 F 02/17/21 11:38 Pulse 97 02/17/21 13:47 Resp 18 02/17/21 11:38 BP 129/73 02/17/21 11:38 Pulse Ox 98 02/17/21 11:38 Body Mass Index 41.0 General sitting in bed, no acute distress. Neck is supple no JVD. CVS regular rate rhythm, Respiratory lungs clear to auscultation,coarse, no respiratory distress, no wheeze, no rhonchi. Gastrointestinal abdomen soft, nontender, bowel sounds audible Extremities no edema. Neuro nonfocal Skin no rash Objective Data Current Medications Generic Name Dose Route Start Last Admin Trade Name Freq PRN Reason Stop Dose Admin Acetaminophen 650 mg 02/16/21 19:45 Acetaminophen 325 Mg Tablet PO Q6H PRN Pain, Mild (Pain Scale 1-3) Albuterol/Ipratropium 3 ml 02/16/21 19:45 02/16/21 20:22 Albuterol/Iprat 2.5/0.5mg 3 Ml Ampul.Neb INHALE 3 ml RQ4H PRN Administration Shortness of Breath/Wheezing Albuterol/Ipratropium 3 ml 02/16/21 20:00 02/17/21 13:46 Albuterol/Iprat 2.5/0.5mg 3 Ml Ampul.Neb INHALE 3 ml RQ6H WHILE AWAKE ONEIDA Administration Cyclobenzaprine HCl 5 mg 02/16/21 19:50 Cyclobenzaprine Hcl 5 Mg Tablet PO BID PRN Muscle Pain Diltiazem HCl 180 mg 02/17/21 09:00 02/17/21 09:22 Diltiazem Hcl Cd 180 Mg Cap.Er.24h PO 180 mg DAILY ONEIDA Administration Protocol Diphenhydramine HCl 25 mg 02/16/21 19:50 Diphenhydramine Hcl 25 Mg Tablet PO Q6H PRN Allergy Symptoms Diphenhydramine HCl 25 mg 02/16/21 21:00 02/17/21 12:26 Diphenhydramine Hcl 50 Mg/Ml Vial IVPUSH 25 mg Q8H ONEIDA Administration Docusate Sodium 100 mg 02/16/21 19:45 Docusate Sodium 100 Mg Capsule PO DAILY PRN Constipation Fluoxetine HCl 60 mg 02/17/21 09:00 02/17/21 09:21 Fluoxetine Hcl 20 Mg Capsule PO 60 mg DAILY ONEIDA Administration Furosemide 80 mg 02/16/21 19:50 Furosemide 40 Mg Tablet PO DAILY PRN Edema Protocol Guaifenesin/Codeine Phosphate 5 ml 02/16/21 20:39 02/16/21 21:19 Guaifen/Codeine Sf 200/20/10ml 10 Ml Liquid PO 5 ml Q6H PRN Administration cough Methylprednisolone Sodium Succinate 60 mg 02/16/21 21:00 02/17/21 12:34 Methylprednisolone Sod Succ 125 Mg/2 Ml Vial IVPUSH 60 mg Q8H ONEIDA Administration Montelukast Sodium 10 mg 02/16/21 21:00 02/16/21 20:36 Montelukast Sodium 10 Mg Tablet PO 10 mg BEDTIME ONEIDA Administration Morphine Sulfate 2 mg 02/16/21 22:15 02/17/21 11:12 Morphine Sulfate 2 Mg/Ml Cartridge IVPUSH 2 mg Q4H PRN Administration anxiety/restlessness Omeprazole 40 mg 02/17/21 06:30 02/17/21 06:33 Omeprazole 40 Mg Capsule.Dr PO 40 mg BID@0630,1630 ONEIDA Administration Ondansetron HCl 4 mg 02/16/21 19:45 Ondansetron Hcl 4 Mg/2 Ml Vial IVPUSH Q8H PRN Nausea and Vomiting Pharmacy Consult 1 each 02/16/21 13:53 Consult Rx Perform Med Rec MISCELLANE ONCE PRN Consult order Risperidone 0.5 mg 02/16/21 21:00 02/16/21 20:35 Risperidone 0.5 Mg Tablet PO 0.5 mg BEDTIME ONEIDA Administration Sodium Chloride 3 ml 02/17/21 00:00 02/17/21 09:26 0.9 % Sodium Chloride Flush 3 Ml Syringe IVFLUSH 3 ml QSHIFT ONEIDA Administration Topiramate 50 mg 02/16/21 21:00 02/16/21 20:35 Topiramate 25 Mg Tablet PO 50 mg BEDTIME ONEIDA Administration Trazodone HCl 150 mg 02/16/21 21:00 02/16/21 20:35 Trazodone Hcl 50 Mg Tablet PO 150 mg BEDTIME ONEIDA Administration Warfarin Sodium 12.5 mg 02/17/21 18:00 Warfarin Sodium 2.5 Mg Tablet PO DAILY@1800 [facility] Labs CBC & Chem 7: 02/17/21 07:06 02/17/21 07:06 Assessment and Plan (1) Asthma with exacerbation: Status: Acute (2) Anxiety: Status: Acute Assessment and Plan: 50-year-old female with a past medical history of hypertension, anxiety, depress ion, morbid obesity, DVT, AFib, CHF, multiple allergies to medications presented to the hospital with chief complaint of shortness of breath. Noted to be in acute asthma exacerbation Acute asthma exacerbation: Patient feeling better, complaining of less shortness of breath, no overnight issues no fever chills, currently on high-flow oxygen finger oximetry 97%, lung sounds are clear pt. was briefly treated with BiPAP in ER, subsequently transitioned to nasal cannula,than placed on high-flow oxygen. No cause of acute exacerbation found to no evidence of acute infection, no allergy symptoms likely anxiety contributing to her symptoms, will place patient back on nasal cannula DC high-flow oxygen Will continue IV Solu-Medrol IV t.i.d., wean dosage, continue scheduled nebulizer treatment, continue Singulair, supportive care DVT/AFib: Stable ventricular rate continue Cardizem, Continue Coumadin,inr 1.8 , Monitor INR. History of CHF: No acute exacerbation,continue home medications. History of anxiety continue Prozac, trazodone and risperidone Code status: Full code
[2021-02-17] MEDS: diphenhydrAMINE HCL 25 MG TABLET PO (15:33)
[2021-02-17] MEDS: Warfarin Sodium 2.5 MG TABLET 12.5 MG PO (17:51)
--- NOTE | 2021-02-17 18:36 | PC.NURSE ---
Patient complained of shortness of breath and chest tightness. O2 saturation 95 on RA. Lungs diminished throughout with wheezing at bases. Patient also complaing of allergic reaction that is not new. Patients face is red. Dr. Mas made aware. Dr. Fairchild at bedside to evaluate patient. Instructed to give scheduled IV Benadryl as due. Patient currently resting in bed comfortably with no new complaints at this time. Oncoming nurse made aware.
--- NOTE | 2021-02-17 19:04 | PM.EVENT ---
Event Note Date of Service: 02/17/21 Event Note: Saw pt because she was having allergic reaction
[2021-02-17] MEDS: methylPREDNISolone Sod Succ 40 MG/ML VIAL IVPUSH (20:54)
[2021-02-17] MEDS: Montelukast Sodium 10 MG TABLET PO (20:55)
[2021-02-17] MEDS: risperiDONE 0.5 MG TABLET PO (20:55)
[2021-02-17] MEDS: traZODone HCL 50 MG TABLET 150 MG PO (20:56)
[2021-02-17] MEDS: Topiramate 25 MG TABLET 50 MG PO (20:56)
[2021-02-18] MEDS: Morphine Sulfate 2 MG/ML CARTRIDGE IVPUSH (00:38)
[2021-02-18 04:00] VITALS: BP 136/66; PULSE 96; RESP 18; TEMP 36.9; O2SAT 97
[2021-02-18] MEDS: methylPREDNISolone Sod Succ 40 MG/ML VIAL IVPUSH (05:32)
[2021-02-18] MEDS: diphenhydrAMINE HCL 50 MG/ML VIAL 25 MG IVPUSH (05:32)
[2021-02-18] MEDS: Omeprazole 40 MG CAPSULE.DR PO (05:33)
[2021-02-18 07:16] LABS: INTERNATIONAL NORM RATIO 2.6 (0.9-1.1)
[2021-02-18 08:00] VITALS: BP 127/61; PULSE 71; RESP 19; TEMP 36.4; O2SAT 96
[2021-02-18] MEDS: Albuterol/Iprat 2.5/0.5MG 3 ML AMPUL.NEB INHALE (08:47)
[2021-02-18 08:48] VITALS: PULSE 84; O2SAT 97
[2021-02-18 09:08] VITALS: BP 127/61; PULSE 84
[2021-02-18] MEDS: FLUoxetine HCl 20 MG CAPSULE 60 MG PO (09:08)
[2021-02-18] MEDS: 0.9 % Sodium Chloride Flush 3 ML SYRINGE IVFLUSH (09:08)
[2021-02-18] MEDS: dilTIAZem HCL CD 180 MG CAP.ER.24H PO (09:08)
--- NOTE | 2021-02-18 09:35 | MHC.CM.PN ---
CM met with Patient at bedside and addressed IMM , providing Patient with the original and placing a copy on the chart. Patient lives in an apartment with her and 2 adult Sons and she is functionally independent. PCP is Dr. Clifford and HCP is on file.Patient's goal for dc is to return home today with no services and CM has initiated and will follow for dc planning.
--- NOTE | 2021-02-18 10:27 | P.DS_ITS ---
DS: Providers Provider Date of Service: 02/18/21 Date of admission: 02/16/21 19:45 Primary care physician: Unknown Physician DS: Diagnosis Discharge Diagnosis (1) Asthma with exacerbation: Status: Acute (2) Anxiety: Status: Acute DS: Medications Discharge Medications Home Medications: Home Medications Medication Instructions Recorded Confirmed diltiazem HCl 180 mg PO DAILY 09/03/20 02/16/21 fluoxetine 60 mg PO DAILY 09/03/20 02/16/21 montelukast 10 mg PO BEDTIME 09/03/20 02/16/21 risperidone 0.5 mg PO BEDTIME 09/03/20 02/16/21 topiramate 50 mg PO BEDTIME 09/03/20 02/16/21 trazodone 150 mg PO BEDTIME 09/03/20 02/16/21 cyclobenzaprine 5 mg PO BID PRN 02/16/21 02/16/21 diphenhydramine HCl [Benadryl] 25 mg PO Q6H PRN 02/16/21 02/16/21 furosemide 80 mg PO DAILY PRN 02/16/21 02/16/21 omeprazole 40 mg PO BID@0630,1630 02/16/21 02/16/21 warfarin 12.5 mg PO DAILY@1800 02/16/21 02/16/21 Previous Rx's Medication Instructions Recorded ipratropium-albuterol 3 ml INHALATION RQ6H WHILE AWAKE 02/18/21 #100 ml prednisone 20 mg PO DAILY #3 tab 02/18/21 DS: Summary Hospital Course Hospital Course: History of presenting illness 50-year-old female with a past medical history of hypertension, morbid obesity, history of DVT, depression, CHF, anxiety, history of AFib, history of very poor peripheral access status post Port-A-Cath; multiple allergies to medications presented to the hospital today with a chief complaint of shortness of breath. Patient reports that she has been having shortness of breath for the past 2 days. Symptoms are gradually worsening hence decided to come to the ER for further evaluation. Denies any chest pain palpitations. Denies any numbness tingling. Denies any fevers. Reports dry cough. Denies any urinary symptoms. Hospital course Acute asthma exacerbation patient treated briefly with BiPAP in the emergency room and was subsequently transitioned to nasal cannula, she responded well to IV steroids, updraft treatment chest x-ray showed no acute infiltrate, currently oxygenation 95 96% on room air, patient has been ambulating to bathroom with no worsening symptoms, lungs are clear to auscultation, with good air movement, therefore patient is being discharged home on few more days of prednisone and DuoNeb updraft she has been recommended to take Shanda for allergies and continue her steroid inhalers. In regard to atrial fibrillation she will be continued on Coumadin recommended to follow PT INR closely, she had no acute exacerbation of CHF and has been continued on all baseline medications upon discharge Time Spent with Patient Time attestation: Total time spent providing and/or coordinating discharge services: Discharge coordination time: Greater than 30 minutes Physical Exam Vital Signs: Vital Signs: Last Vital Signs Temp 97.6 F 02/18/21 08:00 Pulse 84 02/18/21 09:08 Resp 19 02/18/21 08:00 BP 127/61 02/18/21 09:08 Pulse Ox 96 02/18/21 08:00 Body Mass Index 41.0 General sitting in bed, no acute distress. Neck supple no JVD. CVS regular rate rhythm, Respiratory lungs clear to auscultation,diminished,no respiratory distress, no wheeze, no rhonchi. Gastrointestinal abdomen soft, nontender, bowel sounds audible Extremities no edema. Neuro nonfocal Skin no rash DS: Data Data Completed and Pending Labs on day of discharge: Laboratory Results - last 24 hr 02/16/21 02/18/21 17:20 06:57 PT 31.0 H D INR 2.6 H O2 Saturation 98.0 ABG pH at Pt Temp 7.46 H ABG pH (Temp Correct) 7.45 ABG pCO2 at Pt Temp 24 L ABG pCO2 (Temp Corrct 24 L ABG pO2 at Pt Temp 116 H ABG pO2 (Temp Correct 118 H ABG HCO3 17 L ABG Base Excess (Actual) -4.7 Discharge Plan Discharge Patient Disposition: Home, Self-Care Discharge Diagnosis: Asthma exacerbation Referrals: Physician,Unknown [Primary Care Provider] - 1 Week Discharge Medications: New ipratropium-albuterol 0.5 mg-3 mg(2.5 mg base)/3 mL Solution For Nebulization 3 ml inhalation RQ6H WHILE AWAKE Qty: 100 RF: 0 prednisone 20 mg Tablet 20 mg PO DAILY Qty: 3 RF: 0 Continued diltiazem HCl 180 mg Capsule,Extended Release 24 Hr 180 mg PO DAILY RF: 0 risperidone 0.25 mg Tablet 0.5 mg PO BEDTIME RF: 0 montelukast 10 mg Tablet 10 mg PO BEDTIME RF: 0 topiramate 50 mg Tablet 50 mg PO BEDTIME RF: 0 fluoxetine 60 mg Tablet 60 mg PO DAILY RF: 0 trazodone 100 mg Tablet 150 mg PO BEDTIME RF: 0 cyclobenzaprine 5 mg Tablet 5 mg PO BID PRN (Reason: Muscle Pain) RF: 0 diphenhydramine HCl [Benadryl] 25 mg Capsule 25 mg PO Q6H PRN (Reason: Allergy Symptoms) RF: 0 warfarin 5 mg Tablet 12.5 mg PO DAILY@1800 RF: 0 furosemide 80 mg Tablet 80 mg PO DAILY PRN (Reason: Edema) RF: 0 omeprazole 40 mg Capsule,Delayed Release(Dr/Ec) 40 mg PO BID@0630,1630 RF: 0 Discontinued hydromorphone 2 mg Tablet 2 mg PO Q6H PRN (Reason: Breakthrough Pain, Severe) RF: 0 Discharge Orders: Discharge Order (Routine); Ordered 02/18/21 Ordered By: Agus Mas Diet: low fat, low cholesterol Activity on Discharge: As tolerated Stand Alone Forms: Patient Portal Discharge page Care Plan Goals: Continue all home medications follow PT INR closely, take dose of Coumadin as before Health Concerns: Your diagnosed to have asthma exacerbation likely due to allergies take Shanda as prescribed, take prednisone 20 mg daily for 3 more days, continue updraft treatment 4 times a day for next few days and then use as needed for shortness of breath. Plan of Treatment: Outpatient follow-up with primary care physician take all home medications as be fore Assessment: As per discharge plan
--- NOTE | 2021-02-18 10:46 | MHC.CM.PN ---
Patient has been medically cleared for dc to home today, no services. IMM addressed earlier this morning.
[2021-02-18] MEDS: Heparin Sodium,Porcine Flush 50 UNITS/5 ML SYRINGE IVFLUSH (13:12)
== END 2021-02-18 13:10 | disposition home or self-care (01) | DRG 202 ==
LOC: HO.ED 17:42 → HO.EDOVER 20:57 → HO.S3 02-17 10:25
PROVIDERS: Physician Assistant; Admitting Provider Hospitalist; Emergency Provider Emergency Medicine; Visit Provider Hospitalist
DX: J45.41 Moderate persistent asthma with (acute) exacerbation (principal); Z68.41 Body mass index [BMI] 40.0-44.9, adult; F32.9 Major depressive disorder, single episode, unspecified; I48.91 Unspecified atrial fibrillation; E66.01 Morbid (severe) obesity due to excess calories; Z20.822 Contact with and (suspected) exposure to COVID-19; Z88.0 Allergy status to penicillin; Z88.5 Allergy status to narcotic agent; Z79.01 Long term (current) use of anticoagulants; Z79.899 Other long term (current) drug therapy
CPT/HCPCS: 36415; 71045; 80048; 83735; 84484; 85025; 85610; 87635; 93005; 94640; 94644; 94645; 94660; 96365; 96366; 96375; 99285; J1200; J1642; J2270; J2920; J2930; J3010; J3475; Q0163

== ENCOUNTER 2021-02-24 12:30 | Emergency (ER) | payer MEDICARE, MEDICAID, SELFPAY ==
--- NOTE | ~2021-02-24 | XR_ITS ---
EXAMINATION: XR CHEST CLINICAL INFORMATION: Shortness of breath. COMPARISON: 02/16/2021 chest radiograph. TECHNIQUE: Frontal view of the chest was obtained. FINDINGS: A left-sided central venous port is seen with tip terminating at the cavoatrial junction. No significant abnormality is noted involving the heart, lungs, mediastinum, bony thorax or soft tissues. XR/XR chest 1V IMPRESSION: No acute cardiopulmonary process.
--- NOTE | 2021-02-24 08:00 | ECG_ITS ---
Test Reason : TACHYCARDIA Blood Pressure : / mmHG Vent. Rate : 122 BPM Atrial Rate : 122 BPM P-R Int : 154 ms QRS Dur : 078 ms QT Int : 330 ms P-R-T Axes : 035 -07 031 degrees QTc Int : 470 ms Sinus tachycardia Low voltage QRS Possible Inferior infarct , age undetermined Possible Anterolateral infarct (cited on or before 03-MAY-2019) Abnormal ECG When compared with ECG of 24-FEB-2021 13:43, No significant change was found Referred By: Malik Gregorio Electronically Signed By:Carlos Quick
[2021-02-24 12:32] VITALS: BP 147/104; PULSE 142; RESP 28; TEMP 36.8; O2SAT 99; BMI 43.0
--- NOTE | 2021-02-24 12:54 | ECG_ITS ---
Test Reason : ASTHMA Blood Pressure : / mmHG Vent. Rate : 135 BPM Atrial Rate : 135 BPM P-R Int : 136 ms QRS Dur : 064 ms QT Int : 302 ms P-R-T Axes : 043 -46 037 degrees QTc Int : 453 ms Sinus tachycardia Possible Left atrial enlargement Inferior infarct (cited on or before 03-MAY-2019) Anterolateral infarct (cited on or before 03-MAY-2019) Abnormal ECG When compared with ECG of 24-FEB-2021 13:40, No significant changes seen Referred By: Marlee Lopez Electronically Signed By:Carlos Quick
[2021-02-24] MEDS: Albuterol Sulfate (0.083%) 2.5 MG/3 ML VIAL.NEB 10 MG INHALE (13:14)
[2021-02-24 13:18] LABS: MANUAL DIFF FLAG NO
[2021-02-24] MEDS: Ketamine HCl/NS 50 MG/5 ML SYRINGE 25 MG IVPUSH (13:18)
[2021-02-24] MEDS: methylPREDNISolone Sod Succ 125 MG/2 ML VIAL IVPUSH (13:18)
[2021-02-24] MEDS: Magnesium Sulfate/H2O 2 GM/50 ML PIGGYBACK IV (13:18)
[2021-02-24 13:20] LABS: Basophils Percent Auto 0.1 % (0-2); Eosinophils Absolute Auto 0.2 X10*3/uL (0.0-0.4); Eosinophils Percent Auto 2.9 % (0-4); Hematocrit 33.5 % (37-47); Hemoglobin 10.4 g/dl (12.0-16.0); Imm Gran Abs Auto 0.03 X10*3/uL (0.00-0.03); Imm Gran Pct Auto 0.4 % (0.0-0.4); Lymphocytes Absolute Auto 2.1 X10*3/uL (1.2-4.9); Lymphocytes Percent Auto 28.4 % (20-40); Mean Corpuscular Hemoglobin 25.7 pg (27.0-33.0); Mean Corpuscular Volume 82.7 fL (80-98); Mean Platelet Volume 11.8 fL (9.4-12.3); Monocytes Absolute Auto 0.6 X10*3/uL (0.1-1.2); Monocytes Percent Auto 8.6 % (2-11); Neutrophils Absolute Auto 4.3 X10*3/uL (2.0-8.3); Neutrophils Percent Auto 59.6 % (45-73); Platelet Count 276 X10*3/uL (160-400); Red Blood Count 4.05 X10*6/uL (4.20-5.50); Red Cell Distribution Width 15.8 % (11.0-16.0); White Blood Count 7.2 X10*3/uL (4.8-10.8)
[2021-02-24 13:24] VITALS: O2SAT 98
--- NOTE | 2021-02-24 13:26 | ED_ITS ---
HPI - Asthma General Chief Complaint: Asthma Stated Complaint: Asthma Time Seen by Provider: 02/24/21 12:52 Source: patient Mode of arrival: ambulatory History of Present Illness HPI Narrative: 50-year-old female history of asthma with multiple ED visits and hospitalization came in for evaluation of acute exacerbation of asthma. Patient started to have wheezing, coughing about 1 hour before arrival which usually trigger her asthma, came in with wheezing and shortness of breath. Related Data Home Medications Medication Instructions Recorded Confirmed diltiazem HCl 180 mg PO DAILY 09/03/20 02/16/21 fluoxetine 60 mg PO DAILY 09/03/20 02/16/21 montelukast 10 mg PO BEDTIME 09/03/20 02/16/21 risperidone 0.5 mg PO BEDTIME 09/03/20 02/16/21 topiramate 50 mg PO BEDTIME 09/03/20 02/16/21 trazodone 150 mg PO BEDTIME 09/03/20 02/16/21 cyclobenzaprine 5 mg PO BID PRN 02/16/21 02/16/21 diphenhydramine HCl [Benadryl] 25 mg PO Q6H PRN 02/16/21 02/16/21 furosemide 80 mg PO DAILY PRN 02/16/21 02/16/21 omeprazole 40 mg PO BID@0630,1630 02/16/21 02/16/21 warfarin 12.5 mg PO DAILY@1800 02/16/21 02/16/21 Previous Rx's Medication Instructions Recorded ipratropium-albuterol 3 ml INHALATION RQ6H WHILE AWAKE 02/18/21 #100 ml prednisone 20 mg PO DAILY #3 tab 02/18/21 Allergies Allergy/AdvReac Type Severity Reaction Status Date / Time dexamethasone [From DECADRON] Allergy Severe HIVES Verified 02/16/21 12:18 oxycodone [From PERCOCET] Allergy Severe HIVES Verified 02/16/21 12:18 azithromycin Allergy Intermediate ITCHING Verified 02/16/21 12:18 [From ZITHROMAX Z-XANDER] acetaminophen [Percocet] Allergy Unknown Unknown Verified 02/16/21 12:18 amoxicillin [AMOXICILLIN] Allergy Unknown UNKNOWN, Verified 02/16/21 12:18 hives, swelling budesonide [From SYMBICORT] Allergy Unknown UNKNOWN Verified 02/16/21 12:18 cefpodoxime [From VANTIN] Allergy Unknown UNKNOWN Verified 02/16/21 12:18 cefuroxime [From CEFTIN] Allergy Unknown UNKNOWN Verified 02/16/21 12:18 Cephalosporins Allergy Unknown UNKNOWN Verified 02/16/21 12:18 [CEPHALOSPORINS] ciprofloxacin [From CIPRO] Allergy Unknown UNKNOWN Verified 02/16/21 12:18 diazepam [DIAZEPAM] Allergy Unknown ITCHING Verified 02/16/21 12:18 diphtheria,pertussis Allergy Unknown Unknown Verified 02/16/21 12:18 (acellular),te [Adacel(Tdap Adolesn/Adult)(PF)] erythromycin base Allergy Unknown UNKNOWN Verified 02/16/21 12:18 [ERYTHROMYCIN BASE] fluticasone [Advair Diskus] Allergy Unknown Unknown Verified 02/16/21 12:18 formoterol [From SYMBICORT] Allergy Unknown UNKNOWN Verified 02/16/21 12:18 hydrocodone [From VICODIN] Allergy Unknown unknown Verified 02/16/21 12:18 Iodinated Contrast Media Allergy Unknown UNKNOWN Verified 02/16/21 12:18 [CONTRAST, IV] levofloxacin [From LEVAQUIN] Allergy Unknown UNKNOWN Verified 02/16/21 12:18 penicillin G Allergy Unknown Unknown Verified 02/16/21 12:18 penicillin V Allergy Unknown Unknown Verified 02/16/21 12:18 Penicillins [PENICILLINS] Allergy Unknown UNKNOWN Verified 02/16/21 12:18 salmeterol [Advair Diskus] Allergy Unknown Unknown Verified 02/16/21 12:18 sertraline [From ZOLOFT] Allergy Unknown SUICIDAL Verified 02/16/21 12:18 Sulfa (Sulfonamide Allergy Unknown hives Verified 02/16/21 12:18 Antibiotics) tetanus and diphtheria Allergy Unknown UNKNOWN Verified 02/16/21 12:18 toxoids [TETANUS & DIPHTHERIA TOXOIDS] Vantin Allergy Unknown Unknown Verified 02/16/21 12:18 ketorolac [From TORADOL] AdvReac Mild ITCHING Verified 02/16/21 12:18 Ceftin Allergy Unknown Unknown Uncoded 12/02/20 21:41 IV dye Allergy Unknown Unknown Uncoded 12/02/20 21:41 Symbicort Allergy Unknown Unknown Uncoded 12/02/20 21:41 Tetanus Allergy Unknown Unknown Uncoded 12/02/20 21:41 Erythromycin Allergy Unknown Uncoded 12/02/20 21:41 Review of Systems Review of Systems: All other systems are reviewed and are negative Constitutional: Reports as per HPI and Reports no additional constitutional complaints Eyes: Reports as per HPI and Reports no additional eye complaints Reports system reviewed and no additional complaints, except as documented Cardiovascular: Reports as per HPI and Reports no additional cardiovascular complaints Respiratory: Reports as per HPI and Reports no additional respiratory complaints Gastrointestinal: Reports as per HPI and Reports no additional gastrointestinal complaints Genitourinary: Reports no additional female genitourinary complaints Musculoskeletal: Reports no additional musculoskeletal complaints Skin/Breast: Reports system reviewed and no additional complaints, except as docu Psychiatric: Reports no additional psychiatric complaints Endocrine: Reports no additional endocrine complaints Hematologic/Lymphatic: Reports no additional hematologic/lymphatic complaints Allergic/Immunologic: Reports no additional allergic/immunologic complaints Reports system reviewed and no additional complaints, except as documented and Reports Abnormal speech present [facility] Past Medical History Medical History Anxiety Asthma Atrial fibrillation CHF (congestive heart failure) Depression DVT (deep venous thrombosis) Hypertension Morbid obesity Social History Social History Household Members: Spouse and Children Housing: Apartment Alcohol intake: current Alcohol intake frequency: holidays/special occasions only Smoking Status: Never smoker Second Hand Smoke Exposure: No Advance Directives: Yes Advance Directives on File: Yes Advance Directives Date on File: 09/06/20 Patient : No service: No Current occupational status: disabled Physical Exam Vital Signs: Vital Signs: Last Vital Signs Temp 98.2 F 02/24/21 12:32 Pulse 116 H 02/24/21 14:25 Resp 16 02/24/21 14:25 BP 183/77 H 02/24/21 14:25 Pulse Ox 97 02/24/21 14:25 Body Mass Index 43.0 Vital signs have been reviewed as appeared to be correct. Blood pressure elevated. Heart rate elevated. Respiration rate elevated. Temperature normal. Oxygen saturation normal. Appearance: Alert. Oriented X3. No acute distress. Appear anxious Head: Normal external exam. Normocephalic. Atraumatic. No Salter signs noted. No raccoon eyes noted Eyes: PERRLA. EOMI. Conjunctiva and sclera normal. Eyelids normal. ENT: TM's Normal. Pharynx normal. Uvula midline. Moist mucous membranes. No trismus noted. No drooling noted. No muffled voice noted. Neck: Normal inspection. Neck supple. FROM. No adenopathy. Thyroid Normal. No meningeal signs. No neck mass noted. CVS: Normal heart rate and rhythm. Heart sound normal. No murmurs noted. Pulses normal throughout. Respiratory: No respiratory distress. Painless inspiration. Breath sounds normal. Diffuse mild expiratory wheezing with prolonged expiration.. Chest nontender. No accessory muscle usage noted or decreased air movement noted. Abdomen: Soft and nontender. Bowel sounds normal in all 4 quadrants. No distention noted. No organomegaly noted. No visible injury noted. Back: No CVA tenderness. Full range of motion noted. Skin: Skin warm and dry. Normal skin color. Normal skin turgor. No rashes/lesions/lacerations noted. Extremities: No lower extremity edema. Extremities exhibit normal range of motion. Extremities nontender. Neuro: Oriented X 3. No motor deficit. No sensory deficit. Reflexes normal. Course Course Course Narrative: Assessment and plan. Patient with acute asthma exacerbation and cough labs, ABG, chest x-ray at patient baseline, patient now sleeping maintaining her oxygenation at 97%, improved physical exam less wheezing more comfortable breathing. Will discharge the patient home continue with her home medication. MDM - Asthma Lab Data Attestation: I reviewed the patient's lab results. Result diagrams: 02/24/21 13:09 02/24/21 13:09 Labs: Lab Results 02/24/21 02/24/21 02/24/21 Range/Units 13:09 13:09 13:09 WBC 7.2 (4.8-10.8) X10*3/uL RBC 4.05 L (4.20-5.50) X10*6/uL Hgb 10.4 L (12.0-16.0) g/dl Hct 33.5 L (37-47) % MCV 82.7 (80-98) fL MCH 25.7 L (27.0-33.0) pg MCHC 31.0 (31.0-35.0) g/dl RDW 15.8 (11.0-16.0) % Plt Count 276 (160-400) X10*3/uL MPV 11.8 (9.4-12.3) fL Immature Gran % (Auto) 0.4 (0.0-0.4) % Neut % (Auto) 59.6 (45-73) % Lymph % (Auto) 28.4 (20-40) % [place] % (Auto) 8.6 (2-11) % Eos % (Auto) 2.9 (0-4) % Baso % (Auto) 0.1 (0-2) % Lymph # (Auto) 2.1 (1.2-4.9) X10*3/uL [place] # (Auto) 0.6 (0.1-1.2) X10*3/uL Eos # (Auto) 0.2 (0.0-0.4) X10*3/uL Baso # (Auto) 0.0 (0.0-0.2) X10*3/uL Abs Immat Gran (auto) 0.03 (0.00-0.03) X10*3/uL Absolute Neuts (auto) 4.3 (2.0-8.3) X10*3/uL Absolute Nucleated RBC 0.000 (0.0-0.012) X10*3/uL Nucleated RBC % (auto) 0.0 (0.0-0.2) /100WBC Hold Purple Top SEE NOTE PT 52.4 H D (10.8-13.0) SEC INR 4.3 H (0.9-1.1) O2 Saturation % ABG pH at Pt Temp (7.35-7.45) ABG pH (Temp Correct) (7.35-7.45) ABG pCO2 at Pt Temp (32-45) mmHg ABG pCO2 (Temp Corrct (32-45) mmHg ABG pO2 at Pt Temp (83-108) mmHg ABG pO2 (Temp Correct (83-108) ABG HCO3 (22-26) mmol/L ABG Base Excess (Actual) mmol/L Sodium (135-145) mmol/L Potassium (3.3-5.1) mmol/L Chloride (96-108) mmol/L Carbon Dioxide (22-29) mmol/L Anion Gap (12-20) BUN (9-16) mg/dL Creatinine (0.5-1.4) mg/dL Estim Creat Clear Calc Estimated GFR Random Glucose (60-115) mg/dL Calcium (8.4-10.2) mg/dL Magnesium (1.6-2.6) mg/dL Total Bilirubin (0.0-1.0) mg/dL AST (5-31) U/L ALT (0-31) U/L Alkaline Phosphatase (39-117) U/L B-Natriuretic Peptide (<100) pg/mL Total Protein (6.5-8.0) g/dL Albumin (3.5-5.0) g/dL Beta HCG, Quant mIU/mL 02/24/21 02/24/21 02/24/21 Range/Units 13:09 13:09 13:29 WBC (4.8-10.8) X10*3/uL RBC (4.20-5.50) X10*6/uL Hgb (12.0-16.0) g/dl Hct (37-47) % MCV (80-98) fL MCH (27.0-33.0) pg MCHC (31.0-35.0) g/dl RDW (11.0-16.0) % Plt Count (160-400) X10*3/uL MPV (9.4-12.3) fL Immature Gran % (Auto) (0.0-0.4) % Neut % (Auto) (45-73) % Lymph % (Auto) (20-40) % [place] % (Auto) (2-11) % Eos % (Auto) (0-4) % Baso % (Auto) (0-2) % Lymph # (Auto) (1.2-4.9) X10*3/uL [place] # (Auto) (0.1-1.2) X10*3/uL Eos # (Auto) (0.0-0.4) X10*3/uL Baso # (Auto) (0.0-0.2) X10*3/uL Abs Immat Gran (auto) (0.00-0.03) X10*3/uL Absolute Neuts (auto) (2.0-8.3) X10*3/uL Absolute Nucleated RBC (0.0-0.012) X10*3/uL Nucleated RBC % (auto) (0.0-0.2) /100WBC Hold Purple Top PT (10.8-13.0) SEC INR (0.9-1.1) O2 Saturation 98.0 % ABG pH at Pt Temp 7.45 (7.35-7.45) ABG pH (Temp Correct) 7.45 (7.35-7.45) ABG pCO2 at Pt Temp 28 L (32-45) mmHg ABG pCO2 (Temp Corrct 28 L (32-45) mmHg ABG pO2 at Pt Temp 104 (83-108) mmHg ABG pO2 (Temp Correct 103 (83-108) ABG HCO3 20 L (22-26) mmol/L ABG Base Excess (Actual) -2.6 mmol/L Sodium 139 (135-145) mmol/L Potassium 4.2 (3.3-5.1) mmol/L Chloride 107 (96-108) mmol/L Carbon Dioxide 22 (22-29) mmol/L Anion Gap 14 (12-20) BUN 10 (9-16) mg/dL Creatinine 0.80 (0.5-1.4) mg/dL Estim Creat Clear Calc 88.2 Estimated GFR > 60 Random Glucose 130 H (60-115) mg/dL Calcium 9.1 (8.4-10.2) mg/dL Magnesium 2.0 (1.6-2.6) mg/dL Total Bilirubin 0.2 (0.0-1.0) mg/dL AST 18 D (5-31) U/L ALT 25 (0-31) U/L Alkaline Phosphatase 118 H D (39-117) U/L B-Natriuretic Peptide 15 (<100) pg/mL Total Protein 6.4 L (6.5-8.0) g/dL Albumin 4.2 (3.5-5.0) g/dL Beta HCG, Quant < 2 mIU/mL ABG Data Interpretation: PH 7.45, pCO2 28, PO2 104, HC03 20 Imaging Data Chest x-ray: Radiologist's impression: No acute pathology, No acute cardiopulmonary pr ocess. Lab and today how Discharge Plan Discharge Clinical Impression: Asthma with exacerbation, Anxiety Patient Disposition: Home, Self-Care Instructions: Bronchospasm (ED) Prescriptions: No Action diltiazem HCl 180 mg Capsule,Extended Release 24 Hr 180 mg PO DAILY RF: 0 risperidone 0.25 mg Tablet 0.5 mg PO BEDTIME RF: 0 montelukast 10 mg Tablet 10 mg PO BEDTIME RF: 0 topiramate 50 mg Tablet 50 mg PO BEDTIME RF: 0 fluoxetine 60 mg Tablet 60 mg PO DAILY RF: 0 trazodone 100 mg Tablet 150 mg PO BEDTIME RF: 0 cyclobenzaprine 5 mg Tablet 5 mg PO BID PRN (Reason: Muscle Pain) RF: 0 diphenhydramine HCl [Benadryl] 25 mg Capsule 25 mg PO Q6H PRN (Reason: Allergy Symptoms) RF: 0 warfarin 5 mg Tablet 12.5 mg PO DAILY@1800 RF: 0 furosemide 80 mg Tablet 80 mg PO DAILY PRN (Reason: Edema) RF: 0 omeprazole 40 mg Capsule,Delayed Release(Dr/Ec) 40 mg PO BID@0630,1630 RF: 0 ipratropium-albuterol 0.5 mg-3 mg(2.5 mg base)/3 mL Solution For Nebulization 3 ml inhalation RQ6H WHILE AWAKE Qty: 100 RF: 0 prednisone 20 mg Tablet 20 mg PO DAILY Qty: 3 RF: 0 Referrals: Vel Martinez MD [Primary Care Provider] - 2 days
[2021-02-24 13:30] LABS: INTERNATIONAL NORM RATIO 4.3 (0.9-1.1); Prothrombin Time 52.4 SEC (10.8-13.0)
[2021-02-24 13:37] LABS: ABG Base Excess -2.6 mmol/L; ABG HCO3 20 mmol/L (22-26); ABG pCO2 28 mmHg (32-45); ABG pCO2 TC 28 mmHg (32-45); ABG pH 7.45 (7.35-7.45); ABG pH TC 7.45 (7.35-7.45); ABG pO2 104 mmHg (83-108); ABG pO2 TC 103 (83-108)
[2021-02-24 13:40] LABS: ABG Refer to POC result
[2021-02-24 13:54] LABS: Alanine Aminotransferase 25 U/L (0-31); Albumin Level 4.2 g/dL (3.5-5.0); Alkaline Phosphatase 118 U/L (39-117); Anion Gap 14 (12-20); Aspartate Amino Transferase 18 U/L (5-31); Bilirubin Total 0.2 mg/dL (0.0-1.0); Blood Urea Nitrogen 10 mg/dL (9-16); Calcium 9.1 mg/dL (8.4-10.2); Carbon Dioxide 22 mmol/L (22-29); Chloride 107 mmol/L (96-108); Creatinine Clr Calc Pharmacy 88.2; Estimated Glomerular Filt Rate > 60; Glucose Random 130 mg/dL (60-115); Potassium 4.2 mmol/L (3.3-5.1); Sodium 139 mmol/L (135-145); Total Protein 6.4 g/dL (6.5-8.0)
[2021-02-24 13:56] LABS: B Type Natriuretic Peptide 15 pg/mL (<100)
[2021-02-24 14:01] LABS: HCG Quantitative < 2 mIU/mL
[2021-02-24 14:25] VITALS: BP 183/77; PULSE 116; RESP 16; O2SAT 97
[2021-02-24] MEDS: Ketamine HCl 500 MG/5 ML VIAL 25 MG IV (14:26)
--- NOTE | 2021-02-24 15:17 | PC.NURSE ---
LS CLEAR THROUGHOUT, PT SLEEPING, NO LONGER TACHYPNEIC, HR DOWN TO 110S, SPO2 HAS REMAINED WNL SINCE ARRIVAL TO ED.
[2021-02-24 16:03] VITALS: BP 130/65; PULSE 109; RESP 16; O2SAT 98
== END 2021-02-24 16:09 | disposition home or self-care (01) ==
PROVIDERS: Physician Assistant Medical; Emergency Provider Emergency Medicine; PCP Family Medicine
DX: J45.901 Unspecified asthma with (acute) exacerbation (principal); F41.9 Anxiety disorder, unspecified; I11.0 Hypertensive heart disease with heart failure; I50.9 Heart failure, unspecified; I48.91 Unspecified atrial fibrillation; Z79.01 Long term (current) use of anticoagulants; Z79.899 Other long term (current) drug therapy
CPT/HCPCS: 36415; 71045; 80053; 83735; 83880; 84702; 85025; 85610; 93005; 96365; 96366; 96375; 99284; 99285; J2930; J3475

== ENCOUNTER 2021-02-24 20:15 | Inpatient (IN) | payer MEDICARE, MEDICAID, SELFPAY ==
[2021-02-24] VITALS (8 sets, daily range): BP systolic 101–159; BP diastolic 61–95; PULSE 110–140; RESP 20–32; TEMP 37.1; O2SAT 97–100; BMI 43.5
[2021-02-24] MEDS: diphenhydrAMINE HCL 50 MG/ML VIAL IVPUSH (20:25)
[2021-02-24] MEDS: Magnesium Sulfate/H2O 2 GM/50 ML PIGGYBACK IV (20:25)
[2021-02-24] MEDS: methylPREDNISolone Sod Succ 125 MG/2 ML VIAL IVPUSH (20:25)
[2021-02-24] MEDS: Albuterol Sulfate (0.083%) 2.5 MG/3 ML VIAL.NEB 10 MG INHALE (20:42)
[2021-02-24] MEDS: LORazepam 2 MG/ML VIAL 1 MG IVPUSH (20:52)
[2021-02-24] MEDS: Ketamine HCl/NS 50 MG/5 ML SYRINGE 90 MG IVPUSH (20:52)
[2021-02-24 20:54] LABS: VBG Base Excess -8.8 mmol/L; VBG HCO3 13 mmol/L (22-26); VBG pCO2 21 mmHg; VBG pO2 233 mmHg
[2021-02-24 20:55] LABS: Venous Blood Gas Refer to POC result
--- NOTE | 2021-02-24 20:57 | ED_ITS ---
HPI - Asthma General Chief Complaint: Asthma Stated Complaint: asthma Time Seen by Provider: 02/24/21 20:22 Source: patient and family Mode of arrival: wheelchair Limitations: other (Shortness of breath) History of Present Illness HPI Narrative: 50-year-old female with a past medical history of hypertension, morbid obesity, history of DVT, depression, CHF, anxiety, history of AFib, history of very poor peripheral access status post Port-A-Cath; multiple allergies to medications presented to the hospital today with a chief complaint of shortness of breath. Patient was discharged from the hospital 4 hours ago. Patient came in unable to speak, diaphoretic, wheezing. However, patient's oxygen saturation was 96% on room air. Patient's states that they were at home, their son has a cat, patient is allergic to cats, likely triggered the current asthma exacerbation. MD complaint: asthma attack Related Data Home Medications Medication Instructions Recorded Confirmed diltiazem HCl 180 mg PO DAILY 09/03/20 02/24/21 fluoxetine 60 mg PO DAILY 09/03/20 02/24/21 montelukast 10 mg PO BEDTIME 09/03/20 02/24/21 risperidone 0.5 mg PO BEDTIME 09/03/20 02/24/21 topiramate 50 mg PO BEDTIME 09/03/20 02/24/21 trazodone 150 mg PO BEDTIME 09/03/20 02/24/21 cyclobenzaprine 5 mg PO BID PRN 02/16/21 02/24/21 diphenhydramine HCl [Benadryl] 25 mg PO Q6H PRN 02/16/21 02/24/21 furosemide 80 mg PO DAILY PRN 02/16/21 02/24/21 omeprazole 40 mg PO BID@0630,1630 02/16/21 02/24/21 warfarin 12.5 mg PO DAILY@1800 02/16/21 02/24/21 Previous Rx's Medication Instructions Recorded ipratropium-albuterol 3 ml INHALATION RQ6H WHILE AWAKE 02/18/21 #100 ml prednisone 20 mg PO DAILY #3 tab 02/18/21 Allergies Allergy/AdvReac Type Severity Reaction Status Date / Time dexamethasone [From DECADRON] Allergy Severe HIVES Verified 02/16/21 12:18 oxycodone [From PERCOCET] Allergy Severe HIVES Verified 02/16/21 12:18 azithromycin Allergy Intermediate ITCHING Verified 02/16/21 12:18 [From ZITHROMAX Z-XANDER] acetaminophen [Percocet] Allergy Unknown Unknown Verified 02/16/21 12:18 amoxicillin [AMOXICILLIN] Allergy Unknown UNKNOWN, Verified 02/16/21 12:18 hives, swelling budesonide [From SYMBICORT] Allergy Unknown UNKNOWN Verified 02/16/21 12:18 cefpodoxime [From VANTIN] Allergy Unknown UNKNOWN Verified 02/16/21 12:18 cefuroxime [From CEFTIN] Allergy Unknown UNKNOWN Verified 02/16/21 12:18 Cephalosporins Allergy Unknown UNKNOWN Verified 02/16/21 12:18 [CEPHALOSPORINS] ciprofloxacin [From CIPRO] Allergy Unknown UNKNOWN Verified 02/16/21 12:18 diazepam [DIAZEPAM] Allergy Unknown ITCHING Verified 02/16/21 12:18 diphtheria,pertussis Allergy Unknown Unknown Verified 02/16/21 12:18 (acellular),te [Adacel(Tdap Adolesn/Adult)(PF)] erythromycin base Allergy Unknown UNKNOWN Verified 02/16/21 12:18 [ERYTHROMYCIN BASE] fluticasone [Advair Diskus] Allergy Unknown Unknown Verified 02/16/21 12:18 formoterol [From SYMBICORT] Allergy Unknown UNKNOWN Verified 02/16/21 12:18 hydrocodone [From VICODIN] Allergy Unknown unknown Verified 02/16/21 12:18 Iodinated Contrast Media Allergy Unknown UNKNOWN Verified 02/16/21 12:18 [CONTRAST, IV] levofloxacin [From LEVAQUIN] Allergy Unknown UNKNOWN Verified 02/16/21 12:18 penicillin G Allergy Unknown Unknown Verified 02/16/21 12:18 penicillin V Allergy Unknown Unknown Verified 02/16/21 12:18 Penicillins [PENICILLINS] Allergy Unknown UNKNOWN Verified 02/16/21 12:18 salmeterol [Advair Diskus] Allergy Unknown Unknown Verified 02/16/21 12:18 sertraline [From ZOLOFT] Allergy Unknown SUICIDAL Verified 02/16/21 12:18 Sulfa (Sulfonamide Allergy Unknown hives Verified 02/16/21 12:18 Antibiotics) tetanus and diphtheria Allergy Unknown UNKNOWN Verified 02/16/21 12:18 toxoids [TETANUS & DIPHTHERIA TOXOIDS] Vantin Allergy Unknown Unknown Verified 02/16/21 12:18 ketorolac [From TORADOL] AdvReac Mild ITCHING Verified 02/16/21 12:18 Ceftin Allergy Unknown Unknown Uncoded 12/02/20 21:41 IV dye Allergy Unknown Unknown Uncoded 12/02/20 21:41 Symbicort Allergy Unknown Unknown Uncoded 12/02/20 21:41 Tetanus Allergy Unknown Unknown Uncoded 12/02/20 21:41 Erythromycin Allergy Unknown Uncoded 12/02/20 21:41 Review of Systems Review of Systems: Constitutional : No Weight loss, No Fever, No Chills, No Night Sweats, No Fatigue, No Malaise ENT/Mouth : No Hearing loss, No Ear Pain, No Nasal Congestion, No Sinus Pain, No Hoarseness, No sore throat, No Rhinorrhea, No Swallowing Difficulty Eyes: No Eye Pain, No Swelling, No Redness, No Foreign Body, No Discharge, No Vision Changes Cardiovascular : No Chest Pain Respiratory : No Cough, No Sputum, complaining of wheezing and dyspnea Gastrointestinal : No Nausea, No Vomiting, No Diarrhea, No Constipation, No abdominal Pain, No Hematochezia, No Melena Genitourinary : no irregular bleeding, No Dysuria, No Urinary Frequency, No Hem aturia, No Urinary Incontinence, No Urgency, No Flank Pain, No Urinary Flow Changes, No Hesitancy Musculoskeletal : No joint pain, No Myalgias, No Joint Swelling Skin : No Skin Lesions, No rash Neuro : No Weakness, No Numbness, No Paresthesias, No Loss of Consciousness, No Dizziness, No Headache Psych : Anxious Heme/Lymph: No Bruising, No Bleeding,No Lymphadenopathy Endocrine : No Polyuria, No Polydipsia, No Temperature Intolerance [facility] Past Medical History Medical History Anxiety Asthma Atrial fibrillation CHF (congestive heart failure) Depression DVT (deep venous thrombosis) Hypertension Morbid obesity Social History Social History Household Members: Spouse and Children Housing: Apartment Alcohol intake: never Smoking Status: Never smoker Second Hand Smoke Exposure: No Use of substances other than those prescribed or required for medical reasons: No Advance Directives: Yes Advance Directives on File: Yes Advance Directives Date on File: 09/06/20 service: No Current occupational status: disabled Physical Exam Vital Signs: Vital Signs: Last Vital Signs Temp 98.8 F 02/24/21 20:55 Pulse 131 H 02/24/21 21:56 Resp 28 H 02/24/21 21:56 BP 146/95 H 02/24/21 21:10 Pulse Ox 99 02/24/21 21:56 Body Mass Index 43.5 Appearance: Alert. Oriented X3. In moderate distress, extremely anxious Eyes: Pupils equal, round and reactive to light. ENT: Pharynx normal. Neck: Normal inspection. Neck supple. No lymph nodes noted. No crepitus CVS: Normal heart rate and rhythm. Pulses normal. Normal S1 and S2 Respiratory: No respiratory distress. Breath sounds normal. No Wheezing. No rales Abdomen: Soft and nontender. No rigidity. No distention. good BS x4 Skin: Flushed and diffusely diaphoretic Extremities: No lower extremity edema. Neuro: Cranial nerves 2-12 grossly intact, Moving all extermities. No slurred speech. Course Course Course Narrative: Patient has labs from this morning, venous blood gas obtained this evening. Patient was giving a breathing treatment, Solu-Medrol, will be magnesium, ketamine, Ativan, responded well to treatment. Patient still has mild wheezing, I discussed the patient with our hospitalist Dr. Pop, patient being readmitted. Patient was initially on a non-rebreather at 15 L, she was weaned off to 4 L, patient remains oxygenating between 96 and 99% on room air, speaking full sentences. Patient was offered Tessalon Perles and Robitussin, patient states ?this shit doesnt work , patient states that she wants more ketamine, states that if I want to give herself, if should have codeine, and then the ICU they gave her morphine or fentanyl for her cough and she would like to have a dose. At this time, patient has wheezing, good air movement, oxygen saturation 99% on room air. At this time, I discussed with the patient that neither ketamine, codeine, morphine or fentanyl is indicated MDM - Asthma Lab Data Labs: Lab Results 02/24/21 02/24/21 Range/Units 20:38 20:46 VBG pH 7.40 (7.32-7.43) VBG pCO2 21 mmHg VBG pO2 233 mmHg VBG HCO3 13 L (22-26) mmol/L VBG O2 Saturation 99.0 % VBG Base Excess -8.8 mmol/L Coronavirus (PCR) NEGATIVE (Negative) Influenza Type A (PCR) NEGATIVE (Negative) Influenza Type B (PCR) NEGATIVE (Negative) RSV RNA Qual (PCR) NEGATIVE (Negative) ECG Data Attestation: I personally reviewed and interpreted this ECG as follows: (Sinus tachycardia, heart rate 122, no ST segment depression or elevation, no T-wave inversion, QTC 470) Discharge Plan Discharge Clinical Impression: Anxiety Asthma with exacerbation Qualifiers: Asthma severity: unspecified severity Asthma persistence: unspecified Qualified Code(s): J45.901 - Unspecified asthma with (acute) exacerbation Patient Disposition: Admitted As Inpatient
--- NOTE | 2021-02-24 21:05 | PC.NURSE ---
2044, ATIVAN AND 40MG KETAMINE GIVEN IVP FOR RESPIRATORY DISTRESS. PER MD, HOLD 50MG KETAMINE. PT BECAME TACHYCARDIAC IN 180S-250S. PROVIDER CALLED TO BEDSIDE TO CONFIRM RATE. PER MD MONITOR DOUBLE COUNTING. 2X ATTEMPTED IV ACCESS IN ADDITION TO PORT. FAILED. PROVIER AWARE. PER AT BEDSIDE, PT WAS TREATED HERE EARLY TODAY FOR SAME ISSUE, PATIENT GIVEN MORE KETAMINE AND LOTS OF OTHER THINGS TO HELP HER BREATH.
--- NOTE | 2021-02-24 21:17 | PC.NURSE ---
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 Arnie Feliciano aware of plan. continuing to monitor at this time.
--- NOTE | 2021-02-24 21:34 | PC.NURSE ---
Md aware of RR and. HR. Monitoring for further airway management needs.
[2021-02-24 21:43] LABS: Influenza A PCR NEGATIVE (Negative); Influenza B PCR NEGATIVE (Negative); Resp Syncy Virus RNA Qual PCR NEGATIVE (Negative); SARS COV2 PCR INHOUSE NEGATIVE (Negative)
--- NOTE | 2021-02-24 21:47 | PC.NURSE ---
MD AT BEDSIDE TITRATED PATIENT FROM 15LPM VIA NR TO 4LPM VIA NC. PER MD WHEEZING OCCURS FROM THROAT. PATIENT IS ASKING FOR MORE KETAMINE AT THIS TIME FOR COUGHING.
[2021-02-24] MEDS: Benzonatate 100 MG CAPSULE 200 MG PO (21:52)
--- NOTE | 2021-02-24 21:54 | PC.NURSE ---
Pt medicated with tessolon collette per dec. Pt stated this bullshit doesnt work for me, the only thing that does is ketamine and cough syrup with codeine . pt educated about potential for adverse reactions due to combo of meds eariler in day. continuing to monitor at this itme.
[2021-02-24] MEDS: guaiFENesin 200 MG/10 ML 10 ML LIQUID PO (22:11)
--- NOTE | 2021-02-24 22:13 | PC.NURSE ---
Per patient I don't get why you wont give me another dose of ketamine for my coughing. A second dose normally knocks it out. Pt educated that maintenance dosing with ketamine is not clinically appropriate unless in severe respiratory distress. Pt medicated with PO robatussin. Per patient Once again, this fucking bullshit doesnt' work for me. Only robatussin with codeine does or do what the ICU doctor did. Pt encouraged to further expand upon previous statement. He gave me morphine and fentanyl, whatever that is. pt at this time is able to speak full sentences and is maintaining oxygen saturation.
--- NOTE | 2021-02-24 22:29 | PM.IMHP ---
History of Present Illness Date of Service: 02/24/21 Chief Complaint: Shortness of breath This is a 50-year-old female with past medical history of asthma with multiple exacerbation within the last 1 year, recurrent DVT, depression, anxiety, history of GI bleed, who presents to the hospital with complaints of persistent shortness of breath and cough. Of note patient was discharged earlier in the day after being managed for asthma exacerbation. Patient reports that she did not feel better on discharge, continued to have shortness of breath, wheezing, coughing. She denies any chest pain, no headache, no change in vision, no abdominal pain nausea or vomiting, no diarrhea constipation, no urinary symptoms and no lower extremity edema To the ED patient had a temp of 98.2?, heart rate of 140, respiratory rate of 32, satting 153/63, satting well on room air but was placed on non-rebreather due to her work of breathing Labs showed pH of 7.4, CO2 of 21, INR 3.8, BNP of 34 Patient will be admitted for management of her asthma Review of Systems Review of Systems: Yes all other systems are reviewed and are negative [facility] Medical History Anxiety Asthma Atrial fibrillation CHF (congestive heart failure) Depression DVT (deep venous thrombosis) Hypertension Morbid obesity Social History Household Members: Family Housing: Apartment Do you presently have visiting nurse or other home services: Yes Alcohol intake: never Smoking Status: Never smoker Second Hand Smoke Exposure: No Use of substances other than those prescribed or required for medical reasons: No Have you been hit, kicked, punched, or otherwise hurt by someone within the past year? If so, by whom?: No Do you feel safe in your current relationship?: Yes Is there a partner from a previous relationship who is making you feel unsafe now?: No Are you made to feel afraid or neglected: No Advance Directives: Yes Advance Directives on File: Yes Advance Directives Date on File: 09/06/20 Do you have thoughts of harming others: None Do you have a plan to hurt others: No Plan Recently lost weight without trying: No Nutrition Risks: No Nutritional Risk Patient : No : No Poor oral hygiene: No service: No Current occupational status: disabled Meds Allergies Allergy/AdvReac Type Severity Reaction Status Date / Time dexamethasone [From DECADRON] Allergy Severe HIVES Verified 02/16/21 12:18 oxycodone [From PERCOCET] Allergy Severe HIVES Verified 02/16/21 12:18 azithromycin Allergy Intermediate ITCHING Verified 02/16/21 12:18 [From ZITHROMAX Z-XANDER] acetaminophen [Percocet] Allergy Unknown Unknown Verified 02/16/21 12:18 amoxicillin [AMOXICILLIN] Allergy Unknown UNKNOWN, Verified 02/16/21 12:18 hives, swelling budesonide [From SYMBICORT] Allergy Unknown UNKNOWN Verified 02/16/21 12:18 cefpodoxime [From VANTIN] Allergy Unknown UNKNOWN Verified 02/16/21 12:18 cefuroxime [From CEFTIN] Allergy Unknown UNKNOWN Verified 02/16/21 12:18 Cephalosporins Allergy Unknown UNKNOWN Verified 02/16/21 12:18 [CEPHALOSPORINS] ciprofloxacin [From CIPRO] Allergy Unknown UNKNOWN Verified 02/16/21 12:18 diazepam [DIAZEPAM] Allergy Unknown ITCHING Verified 02/16/21 12:18 diphtheria,pertussis Allergy Unknown Unknown Verified 02/16/21 12:18 (acellular),te [Adacel(Tdap Adolesn/Adult)(PF)] erythromycin base Allergy Unknown UNKNOWN Verified 02/16/21 12:18 [ERYTHROMYCIN BASE] fluticasone [Advair Diskus] Allergy Unknown Unknown Verified 02/16/21 12:18 formoterol [From SYMBICORT] Allergy Unknown UNKNOWN Verified 02/16/21 12:18 hydrocodone [From VICODIN] Allergy Unknown unknown Verified 02/16/21 12:18 Iodinated Contrast Media Allergy Unknown UNKNOWN Verified 02/16/21 12:18 [CONTRAST, IV] levofloxacin [From LEVAQUIN] Allergy Unknown UNKNOWN Verified 02/16/21 12:18 penicillin G Allergy Unknown Unknown Verified 02/16/21 12:18 penicillin V Allergy Unknown Unknown Verified 02/16/21 12:18 Penicillins [PENICILLINS] Allergy Unknown UNKNOWN Verified 02/16/21 12:18 salmeterol [Advair Diskus] Allergy Unknown Unknown Verified 02/16/21 12:18 sertraline [From ZOLOFT] Allergy Unknown SUICIDAL Verified 02/16/21 12:18 Sulfa (Sulfonamide Allergy Unknown hives Verified 02/16/21 12:18 Antibiotics) tetanus and diphtheria Allergy Unknown UNKNOWN Verified 02/16/21 12:18 toxoids [TETANUS & DIPHTHERIA TOXOIDS] Vantin Allergy Unknown Unknown Verified 02/16/21 12:18 ketorolac [From TORADOL] AdvReac Mild ITCHING Verified 02/16/21 12:18 Ceftin Allergy Unknown Unknown Uncoded 12/02/20 21:41 IV dye Allergy Unknown Unknown Uncoded 12/02/20 21:41 Symbicort Allergy Unknown Unknown Uncoded 12/02/20 21:41 Tetanus Allergy Unknown Unknown Uncoded 12/02/20 21:41 Erythromycin Allergy Unknown Uncoded 12/02/20 21:41 Active Medications: Current Medications Generic Name Dose Route Start Last Admin Trade Name Freq PRN Reason Stop Dose Admin Trazodone HCl 150 mg 02/25/21 21:00 Trazodone Hcl 50 Mg Tablet PO BEDTIME [facility] Home Medications Medication Instructions Recorded Confirmed Last Taken Type diltiazem HCl 180 mg PO DAILY 09/03/20 02/24/21 02/16/21 History fluoxetine 60 mg PO DAILY 09/03/20 02/24/21 02/16/21 History montelukast 10 mg PO BEDTIME 09/03/20 02/24/21 02/15/21 History risperidone 0.5 mg PO BEDTIME 09/03/20 02/24/21 02/15/21 History topiramate 50 mg PO BEDTIME 09/03/20 02/24/21 02/15/21 History trazodone 150 mg PO BEDTIME 09/03/20 02/24/21 02/15/21 History cyclobenzaprine 5 mg PO BID PRN 02/16/21 02/24/21 Unknown History diphenhydramine HCl [Benadryl] 25 mg PO Q6H PRN 02/16/21 02/24/21 Unknown History furosemide 80 mg PO DAILY PRN 02/16/21 02/24/21 Unknown History omeprazole 40 mg PO BID@0630,1630 02/16/21 02/24/21 02/16/21 History warfarin 12.5 mg PO DAILY@1800 02/16/21 02/24/21 Unknown History Physical Exam Vital Signs and Narrative: Vital Signs: Last Vital Signs Temp 98.8 F 02/24/21 20:55 Pulse 131 H 02/24/21 21:56 Resp 28 H 02/24/21 21:56 BP 146/95 H 02/24/21 21:10 Pulse Ox 99 02/24/21 21:56 Body Mass Index 43.5 Const: General: cooperative and no acute distress Orientation/consciousness: patient oriented x3 Eyes: General: appearance normal, both eyes and all related structures Resp: Other: Using accessory muscles, wheezing, coughing Effort & Inspection: respiratory distress Cardio: Rate: regular rate Rhythm: regular rhythm GI: Palpation (GI): Soft to palpation Auscultation: normal bowel sounds Skin: General skin exam: no rashes or lesions noted Neuro: General: patient oriented x3 Cognition (Neuro): normal cognition Extrem: General: Yes normal to inspection and Yes no pedal edema Results Labs Labs: Laboratory Results - last 24 hr 02/24/21 02/24/21 20:38 20:46 VBG pH 7.40 VBG pCO2 21 VBG pO2 233 VBG HCO3 13 L VBG O2 Saturation 99.0 VBG Base Excess -8.8 Coronavirus (PCR) NEGATIVE Influenza Type A (PCR) NEGATIVE Influenza Type B (PCR) NEGATIVE RSV RNA Qual (PCR) NEGATIVE Assessment and Plan (1) Asthma with exacerbation: Qualifiers: Asthma persistence: unspecified Asthma severity: unspecified severity Qualified Code(s): J45.901 - Unspecified asthma with (acute) exacerbation Status: Acute (2) Anxiety: Status: Acute This is a 50-year-old female with was known to our service for multiple admissions for asthma exacerbation returns today after being discharged only few hours prior with complaints of shortness of breath and cough # asthma exacerbation - she was discharged home on prednisone, will switch back to Solu-Medrol IV - DuoNeb q.i.d. and p.r.n. - I believe there is large aspect of anxiety as well as possible medical attention seeking and possible opioid seeking behavior also notable because patient comes in asking for ketamine in majority of admissions as well as fentanyl and morphine - monitor respiratory status # supratherapeutic INR - on Coumadin for history of DVT - will hold Coumadin given her supratherapeutic INR 3.8 - PT INR daily # anxiety = continue risperidone, trazodone and fluoxetine # hypertension - elevated - Continue diltiazem DVT prophylaxis: Warfarin
--- NOTE | 2021-02-24 22:40 | PC.NURSE ---
2236: pt bp 83/66, reports increased coughing. requesting ketamine. md notified, per md monk 1l ns. pt maintaining o2 saturation. upper airway wheezing heard only along with forced coughing.
--- NOTE | 2021-02-24 22:43 | PC.NURSE ---
BP now 101/67. Monitoring at this time.
--- NOTE | 2021-02-24 22:50 | PC.NURSE ---
Pt tolerating po.
[2021-02-24 23:54] LABS: INTERNATIONAL NORM RATIO 3.8 (0.9-1.1); Prothrombin Time 45.3 SEC (10.8-13.0)
--- NOTE | 2021-02-24 23:56 | PC.NURSE ---
pt sleeping at this time. rr even and labored.
[2021-02-25 00:12] LABS: B Type Natriuretic Peptide 34 pg/mL (<100)
--- NOTE | 2021-02-25 00:27 | PC.NURSE ---
remaining ketamine wasted with hannah mckee.
[2021-02-25] MEDS: Cyclobenzaprine HCl 5 MG TABLET PO ×2 (00:31→08:35)
[2021-02-25] MEDS: Morphine Sulfate 4 MG/ML CARTRIDGE IVPUSH (01:08)
[2021-02-25] MEDS: 0.9 % Sodium Chloride Flush 3 ML SYRINGE IVFLUSH ×2 (01:08→08:35)
[2021-02-25 04:00] VITALS: BP 148/84; PULSE 99; RESP 20; TEMP 36.2; O2SAT 98
[2021-02-25] MEDS: HYDROcodone/Homat 5/1.5/5 ML 5 ML SYRUP PO (04:32)
[2021-02-25] MEDS: Omeprazole 40 MG CAPSULE.DR PO (04:32)
[2021-02-25 07:05] LABS: Basophils Percent Auto 0.1 % (0-2); Hematocrit 30.6 % (37-47); Hemoglobin 9.4 g/dl (12.0-16.0); Imm Gran Abs Auto 0.08 X10*3/uL (0.00-0.03); Lymphocytes Absolute Auto 0.6 X10*3/uL (1.2-4.9); Lymphocytes Percent Auto 7.3 % (20-40); MANUAL DIFF FLAG SCAN; Mean Corpuscular HGB Conc 30.7 g/dl (31.0-35.0); Mean Corpuscular Hemoglobin 25.8 pg (27.0-33.0); Mean Corpuscular Volume 84.1 fL (80-98); Mean Platelet Volume 12.3 fL (9.4-12.3); Monocytes Absolute Auto 0.1 X10*3/uL (0.1-1.2); Monocytes Percent Auto 1.2 % (2-11); Neutrophils Absolute Auto 6.9 X10*3/uL (2.0-8.3); Neutrophils Percent Auto 90.4 % (45-73); Platelet Count 249 X10*3/uL (160-400); Red Blood Count 3.64 X10*6/uL (4.20-5.50); Red Cell Distribution Width 16.2 % (11.0-16.0); SCAN SMEAR FLAG 1; White Blood Count 7.7 X10*3/uL (4.8-10.8)
[2021-02-25 07:18] LABS: INTERNATIONAL NORM RATIO 3.9 (0.9-1.1); Prothrombin Time 46.4 SEC (10.8-13.0)
[2021-02-25 07:39] LABS: SLIDE REVIEW VERIFIED
[2021-02-25 07:42] LABS: Anion Gap 14 (12-20); Blood Urea Nitrogen 19 mg/dL (9-16); Calcium 8.8 mg/dL (8.4-10.2); Carbon Dioxide 21 mmol/L (22-29); Chloride 109 mmol/L (96-108); Creatinine Clr Calc Pharmacy 86.8; Estimated Glomerular Filt Rate > 60; Glucose Random 222 mg/dL (60-115); Potassium 4.9 mmol/L (3.3-5.1); Sodium 139 mmol/L (135-145)
[2021-02-25] MEDS: Albuterol/Iprat 2.5/0.5MG 3 ML AMPUL.NEB INHALE (07:44)
[2021-02-25 07:46] VITALS: PULSE 101; O2SAT 92
[2021-02-25 08:00] VITALS: BP 140/58; PULSE 100; RESP 26; TEMP 36.4; O2SAT 99
[2021-02-25] MEDS: Acetaminophen 325 MG TABLET 650 MG PO (08:35)
[2021-02-25] MEDS: dilTIAZem HCL CD 180 MG CAP.ER.24H PO (08:35)
[2021-02-25] MEDS: Docusate Sodium 100 MG CAPSULE PO (08:35)
[2021-02-25] MEDS: diphenhydrAMINE HCL 25 MG TABLET PO ×2 (08:35→12:12)
[2021-02-25] MEDS: FLUoxetine HCl 20 MG CAPSULE 60 MG PO (08:35)
[2021-02-25 11:27] VITALS: BP 139/73; PULSE 109; RESP 24; TEMP 36.6; O2SAT 96
--- NOTE | 2021-02-25 11:30 | PM.DS ---
DS: Providers Provider Date of Service: 02/25/21 Date of admission: 02/24/21 22:20 Primary care physician: Unknown Physician Consults: 02/25/21 00:29 Consult Respiratory Therapy Routine Reason for consultation: asthma ex Has provider been notified: Yes DS: Diagnosis Discharge Diagnosis (1) Asthma with exacerbation: Status: Acute (2) Anxiety: Status: Acute DS: Medications Discharge Medications Home Medications: Home Medications Medication Instructions Recorded Confirmed diltiazem HCl 180 mg PO DAILY 09/03/20 02/24/21 fluoxetine 60 mg PO DAILY 09/03/20 02/24/21 montelukast 10 mg PO BEDTIME 09/03/20 02/24/21 risperidone 0.5 mg PO BEDTIME 09/03/20 02/24/21 topiramate 50 mg PO BEDTIME 09/03/20 02/24/21 trazodone 150 mg PO BEDTIME 09/03/20 02/24/21 cyclobenzaprine 5 mg PO BID PRN 02/16/21 02/24/21 diphenhydramine HCl [Benadryl] 25 mg PO Q6H PRN 02/16/21 02/24/21 furosemide 80 mg PO DAILY PRN 02/16/21 02/24/21 omeprazole 40 mg PO BID@0630,1630 02/16/21 02/24/21 warfarin 12.5 mg PO DAILY@1800 02/16/21 02/24/21 Previous Rx's Medication Instructions Recorded ipratropium-albuterol 3 ml INHALATION RQ6H WHILE AWAKE 02/18/21 #100 ml DS: Summary Hospital Course Hospital Course: Chief Complaint: Shortness of breath 50-year-old female with past medical history of asthma with multiple exacerbation within the last 1 year, recurrent DVT, depression, anxiety, history of GI bleed, who presents to the hospital with complaints of persistent shortness of breath and cough. Of note patient was discharged earlier in the day after being managed for asthma exacerbation. Patient reports that she did not feel better on discharge, continued to have shortness of breath, wheezing, coughing. She denies any chest pain, no headache, no change in vision, no abdominal pain nausea or vomiting, no diarrhea constipation, no urinary symptoms and no lower extremity edema To the ED patient had a temp of 98.2?, heart rate of 140, respiratory rate of 32, satting 153/63, satting well on room air but was placed on non-rebreather due to her work of breathing Labs showed pH of 7.4, CO2 of 21, INR 3.8, BNP of 34 Hospital course Asthma exacerbation. 50-year-old female known to our service for multiple admissions for asthma exacerbation returns today after being discharged from ER only few hours prior with complaints of shortness of breath and cough workup including chest xray showed no acute infiltrate ,ABG showed no hypoxia symptoms likley due to anxiety and opiod seeking behavior at present patient oxygenation is stable her lungs are clear to auscultation, therefore she is being discharged home with strong recommendations to continue home inhalers to follow low-calorie diet, encourage ambulation, will hold off on steroids. [place] [id number] Hospitalist - Progress NoteSigned Patient: Samara TaylorMR#: [id number]: [id number]:[id number]/Sex: 50 / FLoc:[id number]: Agus Mas MD cc: ~ Subjective Subjective Date of Service: 02/17/21 Interval History: Patient feeling better this morning , complaining of persistent shortness of breath, is on high-flow oxygen finger oximetry 97%, no other acute issues overnight. ROS General no headache , no fever chills. CVS no chest pain, no palpitation. Respiratory sob. Gastrointestinal no nausea no vomiting, no abdominal pain Physical Exam Vital Signs: Vital Signs: Last Vital Signs Temp 98.4 F 02/17/21 11:38 Pulse 97 02/17/21 13:47 Resp 18 02/17/21 11:38 BP 129/73 02/17/21 11:38 Pulse Ox 98 02/17/21 11:38 Body Mass Index 41.0 General sitting in bed, no acute distress. Neck is supple no JVD. CVS regular rate rhythm, Respiratory lungs clear to auscultation,coarse, no respiratory distress, no wheeze, no rhonchi. Gastrointestinal abdomen soft, nontender, bowel sounds audible Extremities no edema. Neuro nonfocal Skin no rash Objective Data Current Medications Generic Name Dose Route Start Last Admin Trade Name Freq PRN Reason Stop Dose Admin Acetaminophen 650 mg 02/16/21 19:45 Acetaminophen 325 Mg Tablet PO Q6H PRN Pain, Mild (Pain Scale 1-3) Albuterol/Ipratropium 3 ml 02/16/21 19:45 02/16/21 20:22 Albuterol/Iprat 2.5/0.5mg 3 Ml Ampul.Neb INHALE 3 ml RQ4H PRN Administration Shortness of Breath/Wheezing Albuterol/Ipratropium 3 ml 02/16/21 20:00 02/17/21 13:46 Albuterol/Iprat 2.5/0.5mg 3 Ml Ampul.Neb INHALE 3 ml RQ6H WHILE AWAKE ONEIDA Administration Cyclobenzaprine HCl 5 mg 02/16/21 19:50 Cyclobenzaprine Hcl 5 Mg Tablet PO BID PRN Muscle Pain Diltiazem HCl 180 mg 02/17/21 09:00 02/17/21 09:22 Diltiazem Hcl Cd 180 Mg Cap.Er.24h PO 180 mg DAILY ONEIDA Administration Protocol Diphenhydramine HCl 25 mg 02/16/21 19:50 Diphenhydramine Hcl 25 Mg Tablet PO Q6H PRN Allergy Symptoms Diphenhydramine HCl 25 mg 02/16/21 21:00 02/17/21 12:26 Diphenhydramine Hcl 50 Mg/Ml Vial IVPUSH 25 mg Q8H ONEIDA Administration Docusate Sodium 100 mg 02/16/21 19:45 Docusate Sodium 100 Mg Capsule PO DAILY PRN Constipation Fluoxetine HCl 60 mg 02/17/21 09:00 02/17/21 09:21 Fluoxetine Hcl 20 Mg Capsule PO 60 mg DAILY ONEIDA Administration Furosemide 80 mg 02/16/21 19:50 Furosemide 40 Mg Tablet PO DAILY PRN Edema Protocol Guaifenesin/Codeine Phosphate 5 ml 02/16/21 20:39 02/16/21 21:19 Guaifen/Codeine Sf 200/20/10ml 10 Ml Liquid PO 5 ml Q6H PRN Administration cough Methylprednisolone Sodium Succinate 60 mg 02/16/21 21:00 02/17/21 12:34 Methylprednisolone Sod Succ 125 Mg/2 Ml Vial IVPUSH 60 mg Q8H ONEIDA Administration Montelukast Sodium 10 mg 02/16/21 21:00 02/16/21 20:36 Montelukast Sodium 10 Mg Tablet PO 10 mg BEDTIME ONEIDA Administration Morphine Sulfate 2 mg 02/16/21 22:15 02/17/21 11:12 Morphine Sulfate 2 Mg/Ml Cartridge IVPUSH 2 mg Q4H PRN Administration anxiety/restlessness Omeprazole 40 mg 02/17/21 06:30 02/17/21 06:33 Omeprazole 40 Mg Capsule. PO 40 mg BID@0630,1630 ONEIDA Administration Ondansetron HCl 4 mg 02/16/21 19:45 Ondansetron Hcl 4 Mg/2 Ml Vial IVPUSH Q8H PRN Nausea and Vomiting Pharmacy Consult 1 each 02/16/21 13:53 Consult Rx Perform Med Rec MISCELLANE ONCE PRN Consult order Risperidone 0.5 mg 02/16/21 21:00 02/16/21 20:35 Risperidone 0.5 Mg Tablet PO 0.5 mg BEDTIME ONEIDA Administration Sodium Chloride 3 ml 02/17/21 00:00 02/17/21 09:26 0.9 % Sodium Chloride Flush 3 Ml Syringe IVFLUSH 3 ml QSHIFT ONEIDA Administration Topiramate 50 mg 02/16/21 21:00 02/16/21 20:35 Topiramate 25 Mg Tablet PO 50 mg BEDTIME ONEIDA Administration Trazodone HCl 150 mg 02/16/21 21:00 02/16/21 20:35 Trazodone Hcl 50 Mg Tablet PO 150 mg BEDTIME ONEIDA Administration Warfarin Sodium 12.5 mg 02/17/21 18:00 Warfarin Sodium 2.5 Mg Tablet PO DAILY@1800 [facility] Labs CBC & Chem 7: 02/17/21 07:06 document embedded image 02/17/21 07:06 document embedded image Assessment and Plan (1) Asthma with exacerbation: Status: Acute (2) Anxiety: Status: Acute Assessment and Plan: 50-year-old female with a past medical history of hypertension, anxiety, depression, morbid obesity, DVT, AFib, CHF, multiple allergies to medications presented to the hospital with chief complaint of shortness of breath. Noted to be in acute asthma exacerbation Acute asthma exacerbation: Patient feeling better, complaining of less shortness of breath, no overnight issues no fever chills, currently on high-flow oxygen finger oximetry 97%, lung sounds are clear pt. was briefly treated with BiPAP in ER, subsequently transitioned to nasal cannula,than placed on high-flow oxygen. No cause of acute exacerbation found to no evidence of acute infection, no allergy symptoms likely anxiety contributing to her symptoms, will place patient back on nasal cannula DC high-flow oxygen Will continue IV Solu-Medrol IV t.i.d., wean dosage, continue scheduled nebulizer treatment, continue Singulair, supportive care DVT/AFib Elevated INR, advised to hold Coumadin and to lower dose from 12.5 mg daily to 10 mg daily and to check PT INR on February 27 prior to resuming Coumadin, continue Cardizem. History of CHF: No acute exacerbation,continue home medications. History of anxiety continue Prozac, trazodone and risperidone Time Spent with Patient Time attestation: Total time spent providing and/or coordinating discharge services: Discharge coordination time: Greater than 30 minutes Physical Exam Vital Signs: Vital Signs: Last Vital Signs Temp 97.9 F 02/25/21 11:27 Pulse 109 H 02/25/21 11:27 Resp 24 H 02/25/21 11:27 BP 139/73 02/25/21 11:27 Pulse Ox 96 02/25/21 11:27 Body Mass Index 43.5 General sitting in bed, no acute distress. Neck is supple no JVD. CVS regular rate rhythm, Respiratory lungs clear to auscultation, no respiratory distress, no wheeze, no rhonchi. Gastrointestinal abdomen soft, nontender, bowel sounds audible Extremities no edema. Neuro nonfocal Skin no rash DS: Data Data Completed and Pending Completed studies during hospitalization [Text1]: Procedures Assistance with Respiratory Ventilation, Less than 24 Consecutive Hours, Continuous Positive Airway Pressure (02/16/21) Labs on day of discharge: Laboratory Results - last 24 hr 02/24/21 02/24/21 02/24/21 20:38 20:46 23:40 WBC RBC Hgb Hct MCV MCH MCHC RDW Plt Count MPV Immature Gran % (Auto) Neut % (Auto) Lymph % (Auto) [place] % (Auto) Eos % (Auto) Baso % (Auto) Lymph # (Auto) [place] # (Auto) Eos # (Auto) Baso # (Auto) Abs Immat Gran (auto) Absolute Neuts (auto) Absolute Nucleated RBC Nucleated RBC % (auto) Smear Tech's Comments PT INR VBG pH 7.40 VBG pCO2 21 VBG pO2 233 VBG HCO3 13 L VBG O2 Saturation 99.0 VBG Base Excess -8.8 Sodium Potassium Chloride Carbon Dioxide Anion Gap BUN Creatinine Estim Creat Clear Calc Estimated GFR Random Glucose Calcium B-Natriuretic Peptide 34 Coronavirus (PCR) NEGATIVE Influenza Type A (PCR) NEGATIVE Influenza Type B (PCR) NEGATIVE RSV RNA Qual (PCR) NEGATIVE 02/24/21 02/25/21 02/25/21 23:40 06:44 06:44 WBC 7.7 RBC 3.64 L Hgb 9.4 L Hct 30.6 L MCV 84.1 MCH 25.8 L MCHC 30.7 L RDW 16.2 H Plt Count 249 MPV 12.3 Immature Gran % (Auto) 1.0 H Neut % (Auto) 90.4 H Lymph % (Auto) 7.3 L [place] % (Auto) 1.2 L Eos % (Auto) 0.0 Baso % (Auto) 0.1 Lymph # (Auto) 0.6 L [place] # (Auto) 0.1 Eos # (Auto) 0.0 Baso # (Auto) 0.0 Abs Immat Gran (auto) 0.08 H Absolute Neuts (auto) 6.9 Absolute Nucleated RBC 0.000 Nucleated RBC % (auto) 0.0 Smear Tech's Comments VERIFIED PT 45.3 H INR 3.8 H VBG pH VBG pCO2 VBG pO2 VBG HCO3 VBG O2 Saturation VBG Base Excess Sodium 139 Potassium 4.9 Chloride 109 H Carbon Dioxide 21 L Anion Gap 14 BUN 19 H D Creatinine 0.82 Estim Creat Clear Calc 86.8 Estimated GFR > 60 Random Glucose 222 H D Calcium 8.8 B-Natriuretic Peptide Coronavirus (PCR) Influenza Type A (PCR) Influenza Type B (PCR) RSV RNA Qual (PCR) 02/25/21 06:44 WBC RBC Hgb Hct MCV MCH MCHC RDW Plt Count MPV Immature Gran % (Auto) Neut % (Auto) Lymph % (Auto) [place] % (Auto) Eos % (Auto) Baso % (Auto) Lymph # (Auto) [place] # (Auto) Eos # (Auto) Baso # (Auto) Abs Immat Gran (auto) Absolute Neuts (auto) Absolute Nucleated RBC Nucleated RBC % (auto) Smear Tech's Comments PT 46.4 H INR 3.9 H VBG pH VBG pCO2 VBG pO2 VBG HCO3 VBG O2 Saturation VBG Base Excess Sodium Potassium Chloride Carbon Dioxide Anion Gap BUN Creatinine Estim Creat Clear Calc Estimated GFR Random Glucose Calcium B-Natriuretic Peptide Coronavirus (PCR) Influenza Type A (PCR) Influenza Type B (PCR) RSV RNA Qual (PCR) Discharge Plan Discharge Patient Disposition: Home, Self-Care Discharge Diagnosis: Asthma exacerbation Anxiety Referrals: Physician,Unknown [Primary Care Provider] - 1 Week Discharge Medications: Continued diltiazem HCl 180 mg Capsule,Extended Release 24 Hr 180 mg PO DAILY RF: 0 risperidone 0.25 mg Tablet 0.5 mg PO BEDTIME RF: 0 montelukast 10 mg Tablet 10 mg PO BEDTIME RF: 0 topiramate 50 mg Tablet 50 mg PO BEDTIME RF: 0 fluoxetine 60 mg Tablet 60 mg PO DAILY RF: 0 trazodone 100 mg Tablet 150 mg PO BEDTIME RF: 0 cyclobenzaprine 5 mg Tablet 5 mg PO BID PRN (Reason: Muscle Pain) RF: 0 diphenhydramine HCl [Benadryl] 25 mg Capsule 25 mg PO Q6H PRN (Reason: Allergy Symptoms) RF: 0 furosemide 80 mg Tablet 80 mg PO DAILY PRN (Reason: Edema) RF: 0 omeprazole 40 mg Capsule,Delayed Release(Dr/Ec) 40 mg PO BID@0630,1630 RF: 0 ipratropium-albuterol 0.5 mg-3 mg(2.5 mg base)/3 mL Solution For Nebulization 3 ml inhalation RQ6H WHILE AWAKE Qty: 100 RF: 0 Held warfarin 5 mg Tablet 12.5 mg PO DAILY@1800 RF: 0 Hold Instructions: Resume on 02/27/21. Change dose to 10mg and check inr on 02/27/21 if below 3 start coumadin 10mg Discontinued prednisone 20 mg Tablet 20 mg PO DAILY Qty: 3 RF: 0 Discharge Orders: Discharge Order (Routine); Ordered 02/25/21 Ordered By: Agus Mas Diet: low fat, low cholesterol and low salt diet Activity on Discharge: As tolerated Stand Alone Forms: Patient Portal Discharge page Care Plan Goals: Continue home inhalers as before, check PT INR on Friday and lower dose of Coumadin to 10 mg, Health Concerns: Asthma exacerbation, lungs are clear, continue home inhalers hold steroids, elevated INR therefore hold Coumadin, check PT INR on Friday and resume low-dose of Coumadin 10 mg if INR below 3. Plan of Treatment: Close outpatient follow-up with PCP Assessment: See discharge no
--- NOTE | 2021-02-25 12:13 | PC.NURSE ---
per dr herron, ok to give early dose of banadryl for co swelling to eye lids and hold prednisone
[2021-02-25] MEDS: Heparin Sodium,Porcine Flush 50 UNITS/5 ML SYRINGE IVFLUSH (13:22)
== END 2021-02-25 13:47 | disposition home or self-care (01) | DRG 202 ==
LOC: HO.ED 21:21 → HO.EDOVER 22:56 → HO.S3 23:48
PROVIDERS: Admitting Provider Internal Medicine; Emergency Provider Emergency Medicine; Visit Provider Hospitalist
DX: J45.901 Unspecified asthma with (acute) exacerbation (principal); Z68.41 Body mass index [BMI] 40.0-44.9, adult; E66.01 Morbid (severe) obesity due to excess calories; I10 Essential (primary) hypertension; F41.9 Anxiety disorder, unspecified; R79.1 Abnormal coagulation profile; F32.9 Major depressive disorder, single episode, unspecified; Z20.822 Contact with and (suspected) exposure to COVID-19; Z86.718 Personal history of other venous thrombosis and embolism; Z88.0 Allergy status to penicillin; Z88.5 Allergy status to narcotic agent; Z79.01 Long term (current) use of anticoagulants; Z79.899 Other long term (current) drug therapy
CPT/HCPCS: 0241U; 36415; 71045; 80048; 80053; 83735; 83880; 84702; 85025; 85610; 93005; 94640; 94644; 96365; 96366; 96375; 99284; 99285; J1200; J1642; J2060; J2270; J2930; J3475; Q0163

== ENCOUNTER 2021-03-06 14:43 | Inpatient (IN) | payer MEDICARE, MEDICAID, SELFPAY ==
[2021-03-06] VITALS (8 sets, daily range): BP systolic 97–138; BP diastolic 34–100; PULSE 113–147; RESP 18–26; TEMP 36.6–37.5; O2SAT 93–98; BMI 35.2
--- NOTE | ~2021-03-06 | XR_ITS ---
EXAMINATION: XR CHEST CLINICAL INFORMATION: Shortness of breath. COMPARISON: None TECHNIQUE: Frontal view of the chest was obtained. FINDINGS: The lungs are well-expanded and clear of acute process. Heart size and pulmonary vascularity is normal. There is a right central port with its tip in the mid to distal SVC. XR/XR chest 1V IMPRESSION: Unremarkable chest exam.
--- NOTE | 2021-03-06 15:20 | PC.NURSE ---
Respiratory contacted for eval regarding dyspnea. MD aware of HR.
--- NOTE | 2021-03-06 15:21 | ED_ITS ---
HPI - SOB/Dyspnea General Chief Complaint: Dyspnea <Ry Gonzalez MD - Last Filed: 03/29/21 01:38> Stated Complaint: ASTHMA DIFF BREATHING <Ry Gonzalez MD - Last Filed: 03/29/21 01:38> Time Seen by Provider: 03/06/21 15:21 <Ry Gonzalez MD - Last Filed: 03/29/21 01:38> Source: patient <Ry Gonzalez MD - Last Filed: 03/29/21 01:38> Mode of arrival: ambulatory <Ry Gonzalez MD - Last Filed: 03/29/21 01:38> Limitations: no limitations <Ry Gonzalez MD - Last Filed: 03/29/21 01:38> History of Present Illness HPI Narrative: shortness of breath all day. Patient with a long history of anxiety mixed with asthma <Ry Gonzalez MD - Last Filed: 03/29/21 01:38> MD elicited complaint: shortness of breath <Ry Gonzalez MD - Last Filed: 03/29/21 01:38> Pertinent past history: other (anxiety) <Ry Gonzalez MD - Last Filed: 03/29/21 01:38> Onset (ago): day(s) <Ry Gonzalez MD - Last Filed: 03/29/21 01:38> Timing: constant <Ry Gonzalez MD - Last Filed: 03/29/21 01:38> Severity: moderate <Ry Gonzalez MD - Last Filed: 03/29/21 01:38> Relieving factors: nothing <Ry Gonzalez MD - Last Filed: 03/29/21 01:38> Known history of: asthma <Ry Gonzalez MD - Last Filed: 03/29/21 01:38> Related Data Home Medications: Home Medications Medication Instructions Recorded Confirmed diltiazem HCl 180 mg PO DAILY 09/03/20 03/06/21 fluoxetine 60 mg PO DAILY 09/03/20 03/06/21 montelukast 10 mg PO BEDTIME 09/03/20 03/06/21 risperidone 0.5 mg PO BEDTIME 09/03/20 03/06/21 topiramate 50 mg PO BEDTIME 09/03/20 03/06/21 trazodone 150 mg PO BEDTIME 09/03/20 03/06/21 omeprazole 40 mg PO BEDTIME 02/16/21 03/06/21 warfarin 12.5 mg PO SUWEFR 02/16/21 03/06/21 warfarin 1 tab PO MOTUTHSA 03/06/21 03/06/21 Trelegy Ellipta 1 puff PO DAILY 03/08/21 03/08/21 ipratropium-albuterol 3 ml INHALATION Q6H PRN 03/08/21 03/08/21 Previous Rx's Medication Instructions Recorded dextromethorphan-guaifenesin 10 ml PO Q4-8H PRN #118 ml 03/08/21 [Robitussin Cough-Chest Saad DM] dextromethorphan-guaifenesin 2 tab-cap PO Q4-6H PRN #1 cap 03/14/21 [Robitussin Cough-Chest Saad DM] dicyclomine 20 mg PO BID PRN #10 tab 03/15/21 <Ry Gonzalez MD - Last Filed: 03/29/21 01:38> Allergies/Adverse Reactions: Allergies Allergy/AdvReac Type Severity Reaction Status Date / Time azithromycin Allergy Intermediate ITCHING Verified 03/06/21 20:19 [From ZITHROMAX Z-XANDER] amoxicillin [AMOXICILLIN] Allergy Unknown UNKNOWN, Verified 03/06/21 20:19 hives, swelling budesonide [From SYMBICORT] Allergy Unknown UNKNOWN Verified 03/06/21 20:19 cefpodoxime [From VANTIN] Allergy Unknown UNKNOWN Verified 03/06/21 20:19 cefuroxime [From CEFTIN] Allergy Unknown UNKNOWN Verified 03/06/21 20:19 Cephalosporins Allergy Unknown UNKNOWN Verified 03/06/21 20:19 [CEPHALOSPORINS] ciprofloxacin [From CIPRO] Allergy Unknown UNKNOWN Verified 03/06/21 20:19 diphtheria,pertussis Allergy Unknown Unknown Verified 03/06/21 20:19 (acellular),te [Adacel(Tdap Adolesn/Adult)(PF)] erythromycin base Allergy Unknown UNKNOWN Verified 03/06/21 20:19 [ERYTHROMYCIN BASE] fluticasone [Advair Diskus] Allergy Unknown Unknown Verified 03/06/21 20:19 formoterol [From SYMBICORT] Allergy Unknown UNKNOWN Verified 03/06/21 20:19 hydrocodone [From VICODIN] Allergy Unknown unknown Verified 03/06/21 20:19 Iodinated Contrast Media Allergy Unknown UNKNOWN Verified 03/06/21 20:19 [CONTRAST, IV] levofloxacin [From LEVAQUIN] Allergy Unknown UNKNOWN Verified 03/06/21 20:19 penicillin G Allergy Unknown Unknown Verified 03/06/21 20:19 penicillin V Allergy Unknown Unknown Verified 03/06/21 20:19 Penicillins [PENICILLINS] Allergy Unknown UNKNOWN Verified 03/06/21 20:19 salmeterol [Advair Diskus] Allergy Unknown Unknown Verified 03/06/21 20:19 sertraline [From ZOLOFT] Allergy Unknown SUICIDAL Verified 03/06/21 20:19 Sulfa (Sulfonamide Allergy Unknown hives Verified 03/06/21 20:19 Antibiotics) tetanus and diphtheria Allergy Unknown UNKNOWN Verified 03/06/21 20:19 toxoids [TETANUS & DIPHTHERIA TOXOIDS] Vantin Allergy Unknown Unknown Verified 03/06/21 20:19 ketorolac [From TORADOL] AdvReac Mild ITCHING Verified 03/06/21 20:19 Ceftin Allergy Unknown Unknown Uncoded 03/06/21 20:19 IV dye Allergy Unknown Unknown Uncoded 03/06/21 20:19 Symbicort Allergy Unknown Unknown Uncoded 03/06/21 20:19 Tetanus Allergy Unknown Unknown Uncoded 03/06/21 20:19 Erythromycin Allergy Unknown Uncoded 03/06/21 20:19 <Ry Gonzalez MD - Last Filed: 03/29/21 01:38> Review of Systems Constitutional: Constitutional: Reports no additional constitutional complaints <Ry Gonzalez MD - Last Filed: 03/29/21 01:38> Eyes: Eyes: Reports no additional eye complaints <Ry Gonzalez MD - Last Filed: 03/29/21 01:38> ENT: Denies dizziness <Ry Gonzalez MD - Last Filed: 03/29/21 01:38> Cardiovascular: Cardiovascular: Reports no additional cardiovascular complaints <Ry Gonzalez MD - Last Filed: 03/29/21 01:38> Respiratory: Respiratory: Reports as per HPI <Ry Gonzalez MD - Last Filed: 03/29/21 01:38> Gastrointestinal: Gastrointestinal: Reports no additional gastrointestinal complaints <Ry Gonzalez MD - Last Filed: 03/29/21 01:38> Genitourinary: Genitourinary: Reports no additional female genitourinary complaints <Ry Gonzalez MD - Last Filed: 03/29/21 01:38> Musculoskeletal: Musculoskeletal: Reports no additional musculoskeletal complaints <Ry Gonzalez MD - Last Filed: 03/29/21 01:38> Integumentary/Breasts: Skin/Breast: Denies rash <Ry Gonzalez MD - Last Filed: 03/29/21 01:38> Neurologic: Reports system reviewed and no additional complaints, except as documented, Denies dizziness and Denies Sensory deficit (Neuro) <Ry Gonzalez MD - Last Filed: 03/29/21 01:38> Psychiatric: Psychiatric: Denies anxiety <Ry Gonzalez MD - Last Filed: 03/29/21 01:38> [facility] Past Medical History Medical History: Medical History Anxiety Asthma Atrial fibrillation CHF (congestive heart failure) Depression DVT (deep venous thrombosis) Hypertension Morbid obesity <Ry Gonzalez MD - Last Filed: 03/29/21 01:38> Social History Social History: Social History Household Members: Family Housing: Apartment Housing Other:: duplex Do you presently have visiting nurse or other home services: No Alcohol intake: current Alcohol intake frequency: 0-2 drinks per day Second Hand Smoke Exposure: No Advance Directives: Yes Advance Directives on File: Yes Advance Directives Date on File: 09/06/20 service: No Current occupational status: disabled <Ry Gonzalez MD - Last Filed: 03/29/21 01:38> Physical Exam Vital Signs: Vital Signs: Last Vital Signs Temp 97.8 F 03/08/21 07:47 Pulse 89 03/08/21 11:16 Resp 18 03/08/21 07:47 BP 137/69 03/08/21 07:47 Pulse Ox 98 03/08/21 07:47 Body Mass Index 35.2 <Ry Gonzalez MD - Last Filed: 03/29/21 01:38> Vital Signs: Last Vital Signs Temp 97.8 F 03/08/21 07:47 Pulse 89 03/08/21 11:16 Resp 18 03/08/21 07:47 BP 137/69 03/08/21 07:47 Pulse Ox 98 03/08/21 07:47 Body Mass Index 35.2 <Malik Gregorio MD - Last Filed: 03/07/21 00:21> Const: Other: anxious female with abnormal breathing and coughing pattern appearing more anxious than true asthma <Ry Gonzalez MD - Last Filed: 03/29/21 01:38> Nutritional Appearance: obese <Ry Gonzalez MD - Last Filed: 03/29/21 01:38> Orientation/consciousness: oriented to person and patient oriented x3 <Ry Gonzalez MD - Last Filed: 03/29/21 01:38> Limitations: no limitations <Ry Gonzalez MD - Last Filed: 03/29/21 01:38> HENMT: Head: Yes normal to inspection <Ry Gonzalez MD - Last Filed: 03/29/21 01:38> Ears: external ears normal <Ry Gonzalez MD - Last Filed: 03/29/21 01:38> General nose exam: Normal external nose present <Ry Gonzalez MD - Last Filed: 03/29/21 01:38> Mouth: Normal oral and palatal mucosa present and oropharynx normal <Ry Gonzalez MD - Last Filed: 03/29/21 01:38> Throat: Yes posterior oropharynx normal <Ry Gonzalez MD - Last Filed: 03/29/21 01:38> Eyes: General: appearance normal, both eyes and all related structures <Ry Gonzalez MD - Last Filed: 03/29/21 01:38> Neck: Other: supple <Ry Gonzalez MD - Last Filed: 03/29/21 01:38> Neck: Yes normal visual inspection <Ry Gonzalez MD - Last Filed: 03/29/21 01:38> Chest: Chest palpation & inspection: normal inspection of the chest <Ry Gonzalez MD - Last Filed: 03/29/21 01:38> Resp: Other: Inspiration is clear but patient with force expiratory wheeze. There is good air movement <Ry Gonzalez MD - Last Filed: 03/29/21 01:38> Cardio: Other: severe tachycardia from most likely anxiety rather than asthma <Ry Gonzalez MD - Last Filed: 03/29/21 01:38> Jugular venous distension: no JVD <Ry Gonzalez MD - Last Filed: 03/29/21 01:38> Heart sounds: S1 normal heart sound present and S2 normal heart sound present <Ry Gonzalez MD - Last Filed: 03/29/21 01:38> GI: Inspection: Yes normal to inspection <Ry Gonzalez MD - Last Filed: 03/29/21 01:38> Palpation (GI): Soft to palpation, nontender and No hepatosplenomegaly present <Ry Gonzalez MD - Last Filed: 03/29/21 01:38> Auscultation: normal bowel sounds <Ry Gonzalez MD - Last Filed: 03/29/21 01:38> : General: Yes no CVA tenderness <Ry Gonzalez MD - Last Filed: 03/29/21 01:38> Back/Spine/Pelvis: Back: no CVA tenderness <Ry Gonzalez MD - Last Filed: 03/29/21 01:38> Skin: General skin exam: no rashes or lesions noted <Ry Gonzalez MD - Last Filed: 03/29/21 01:38> Neuro: General: oriented to person and patient oriented x3 <Ry Gonzalez MD - Last Filed: 03/29/21 01:38> Cranial nerves: Yes CN's II-XII intact bilaterally <Ry Gonzalez MD - Last Filed: 03/29/21 01:38> Motor exam (neuro): 5/5 motor strength present throughout <Ry Gonzalez MD - Last Filed: 03/29/21 01:38> Sensory Exam: No Sensory deficit (Neuro) <Ry Gonzalez MD - Last Filed: 03/29/21 01:38> Extrem: General: Yes normal to inspection <Ry Gonzalez MD - Last Filed: 03/29/21 01:38> Psych: Appearance: grossly normal <Ry Gonzalez MD - Last Filed: 03/29/21 01:38> Course Course Course Narrative: Discussed management and plan with Dr. Gregorio <Ry Gonzalez MD - Last Filed: 03/29/21 01:38> I assumed care of 50 years old female well known to our facility with frequent ED visits for COPD/anxiety exacerbation, patient seen initially by Dr. Diaz and sign-out to me, patient received in the emergency department ketamine/fentanyl/bronchodilator/Ativan that usually improved patient's symptoms. Today patient is appeared more anxious, causing more upper respiratory sound and coughing, tachycardic and tachypneic. Been saturating at 98%, bicarb at her normal levels, has been unremarkable, patient required multiple admissions in the past including ICU admission with BiPAP, I do not think patient needs BiPAP today. Will admit her for aggressive bronchodilator and keep monitoring the patient. <Malik Gregorio MD - Last Filed: 03/07/21 00:21> MDM - SOB/Dyspnea Lab Data Attestation: I reviewed the patient's lab results. <Malik Gregorio MD - Last Filed: 03/07/21 00:21> Result diagrams: : 03/07/21 06:06 03/07/21 06:06 <Ry Gonzalez MD - Last Filed: 03/29/21 01:38> Labs: Lab Results 03/06/21 03/06/21 03/06/21 Range/Units 15:35 15:35 17:39 WBC 7.5 (4.8-10.8) X10*3/uL RBC 3.80 L (4.20-5.50) X10*6/uL Hgb 9.8 L (12.0-16.0) g/dl Hct 32.1 L (37-47) % MCV 84.5 (80-98) fL MCH 25.8 L (27.0-33.0) pg MCHC 30.5 L (31.0-35.0) g/dl RDW 17.1 H (11.0-16.0) % Plt Count 177 D (160-400) X10*3/uL MPV 12.0 (9.4-12.3) fL Immature Gran % (Auto) 0.5 H (0.0-0.4) % Neut % (Auto) 81.3 H (45-73) % Lymph % (Auto) 13.8 L (20-40) % [place] % (Auto) 3.6 (2-11) % Eos % (Auto) 0.5 (0-4) % Baso % (Auto) 0.3 (0-2) % Lymph # (Auto) 1.0 L (1.2-4.9) X10*3/uL [place] # (Auto) 0.3 (0.1-1.2) X10*3/uL Eos # (Auto) 0.0 (0.0-0.4) X10*3/uL Baso # (Auto) 0.0 (0.0-0.2) X10*3/uL Abs Immat Gran (auto) 0.04 H (0.00-0.03) X10*3/uL Absolute Neuts (auto) 6.1 (2.0-8.3) X10*3/uL Absolute Nucleated RBC 0.000 (0.0-0.012) X10*3/uL Nucleated RBC % (auto) 0.0 (0.0-0.2) /100WBC Smear Tech's Comments VERIFIED VBG pH 7.32 (7.32-7.43) VBG pCO2 38 mmHg VBG pO2 48 mmHg VBG HCO3 20 L (22-26) mmol/L VBG O2 Saturation 74.0 % VBG Base Excess -4.9 mmol/L Sodium 141 (135-145) mmol/L Potassium 3.7 D (3.3-5.1) mmol/L Chloride 108 (96-108) mmol/L Carbon Dioxide 21 L (22-29) mmol/L Anion Gap 16 (12-20) BUN 11 (9-16) mg/dL Creatinine 1.03 (0.5-1.4) mg/dL Estim Creat Clear Calc 61.1 Estimated GFR 56 Random Glucose 193 H (60-115) mg/dL Calcium 9.2 (8.4-10.2) mg/dL COVID-19 (ELYSE) (Negative) COVID-19 Clin Com 03/06/21 Range/Units 20:39 WBC (4.8-10.8) X10*3/uL RBC (4.20-5.50) X10*6/uL Hgb (12.0-16.0) g/dl Hct (37-47) % MCV (80-98) fL MCH (27.0-33.0) pg MCHC (31.0-35.0) g/dl RDW (11.0-16.0) % Plt Count (160-400) X10*3/uL MPV (9.4-12.3) fL Immature Gran % (Auto) (0.0-0.4) % Neut % (Auto) (45-73) % Lymph % (Auto) (20-40) % [place] % (Auto) (2-11) % Eos % (Auto) (0-4) % Baso % (Auto) (0-2) % Lymph # (Auto) (1.2-4.9) X10*3/uL [place] # (Auto) (0.1-1.2) X10*3/uL Eos # (Auto) (0.0-0.4) X10*3/uL Baso # (Auto) (0.0-0.2) X10*3/uL Abs Immat Gran (auto) (0.00-0.03) X10*3/uL Absolute Neuts (auto) (2.0-8.3) X10*3/uL Absolute Nucleated RBC (0.0-0.012) X10*3/uL Nucleated RBC % (auto) (0.0-0.2) /100WBC Smear Tech's Comments VBG pH (7.32-7.43) VBG pCO2 mmHg VBG pO2 mmHg VBG HCO3 (22-26) mmol/L VBG O2 Saturation % VBG Base Excess mmol/L Sodium (135-145) mmol/L Potassium (3.3-5.1) mmol/L Chloride (96-108) mmol/L Carbon Dioxide (22-29) mmol/L Anion Gap (12-20) BUN (9-16) mg/dL Creatinine (0.5-1.4) mg/dL Estim Creat Clear Calc Estimated GFR Random Glucose (60-115) mg/dL Calcium (8.4-10.2) mg/dL COVID-19 (ELYSE) Negative (Negative) COVID-19 Clin Com See Note <Ry Gonzalez MD - Last Filed: 03/29/21 01:38> Lab Results 03/06/21 03/06/21 03/06/21 Range/Units 15:35 15:35 17:39 WBC 7.5 (4.8-10.8) X10*3/uL RBC 3.80 L (4.20-5.50) X10*6/uL Hgb 9.8 L (12.0-16.0) g/dl Hct 32.1 L (37-47) % MCV 84.5 (80-98) fL MCH 25.8 L (27.0-33.0) pg MCHC 30.5 L (31.0-35.0) g/dl RDW 17.1 H (11.0-16.0) % Plt Count 177 D (160-400) X10*3/uL MPV 12.0 (9.4-12.3) fL Immature Gran % (Auto) 0.5 H (0.0-0.4) % Neut % (Auto) 81.3 H (45-73) % Lymph % (Auto) 13.8 L (20-40) % [place] % (Auto) 3.6 (2-11) % Eos % (Auto) 0.5 (0-4) % Baso % (Auto) 0.3 (0-2) % Lymph # (Auto) 1.0 L (1.2-4.9) X10*3/uL [place] # (Auto) 0.3 (0.1-1.2) X10*3/uL Eos # (Auto) 0.0 (0.0-0.4) X10*3/uL Baso # (Auto) 0.0 (0.0-0.2) X10*3/uL Abs Immat Gran (auto) 0.04 H (0.00-0.03) X10*3/uL Absolute Neuts (auto) 6.1 (2.0-8.3) X10*3/uL Absolute Nucleated RBC 0.000 (0.0-0.012) X10*3/uL Nucleated RBC % (auto) 0.0 (0.0-0.2) /100WBC Smear Tech's Comments VERIFIED VBG pH 7.32 (7.32-7.43) VBG pCO2 38 mmHg VBG pO2 48 mmHg VBG HCO3 20 L (22-26) mmol/L VBG O2 Saturation 74.0 % VBG Base Excess -4.9 mmol/L Sodium 141 (135-145) mmol/L Potassium 3.7 D (3.3-5.1) mmol/L Chloride 108 (96-108) mmol/L Carbon Dioxide 21 L (22-29) mmol/L Anion Gap 16 (12-20) BUN 11 (9-16) mg/dL Creatinine 1.03 (0.5-1.4) mg/dL Estim Creat Clear Calc 61.1 Estimated GFR 56 Random Glucose 193 H (60-115) mg/dL Calcium 9.2 (8.4-10.2) mg/dL COVID-19 (ELYSE) (Negative) COVID-19 Clin Com 03/06/21 Range/Units 20:39 WBC (4.8-10.8) X10*3/uL RBC (4.20-5.50) X10*6/uL Hgb (12.0-16.0) g/dl Hct (37-47) % MCV (80-98) fL MCH (27.0-33.0) pg MCHC (31.0-35.0) g/dl RDW (11.0-16.0) % Plt Count (160-400) X10*3/uL MPV (9.4-12.3) fL Immature Gran % (Auto) (0.0-0.4) % Neut % (Auto) (45-73) % Lymph % (Auto) (20-40) % [place] % (Auto) (2-11) % Eos % (Auto) (0-4) % Baso % (Auto) (0-2) % Lymph # (Auto) (1.2-4.9) X10*3/uL [place] # (Auto) (0.1-1.2) X10*3/uL Eos # (Auto) (0.0-0.4) X10*3/uL Baso # (Auto) (0.0-0.2) X10*3/uL Abs Immat Gran (auto) (0.00-0.03) X10*3/uL Absolute Neuts (auto) (2.0-8.3) X10*3/uL Absolute Nucleated RBC (0.0-0.012) X10*3/uL Nucleated RBC % (auto) (0.0-0.2) /100WBC Smear Tech's Comments VBG pH (7.32-7.43) VBG pCO2 mmHg VBG pO2 mmHg VBG HCO3 (22-26) mmol/L VBG O2 Saturation % VBG Base Excess mmol/L Sodium (135-145) mmol/L Potassium (3.3-5.1) mmol/L Chloride (96-108) mmol/L Carbon Dioxide (22-29) mmol/L Anion Gap (12-20) BUN (9-16) mg/dL Creatinine (0.5-1.4) mg/dL Estim Creat Clear Calc Estimated GFR Random Glucose (60-115) mg/dL Calcium (8.4-10.2) mg/dL COVID-19 (ELYSE) Negative (Negative) COVID-19 Clin Com See Note <Malik Gregorio MD - Last Filed: 03/07/21 00:21> Imaging Data Chest x-ray: Radiologist's impression: no infiltrate <Ry Gonzalez MD - Last Filed: 03/29/21 01:38> No acute pathology. <Malik Gregorio MD - Last Filed: 03/07/21 00:21> Discharge Plan Discharge Clinical Impression: Acute exacerbation of chronic obstructive airways disease, Anxiety <Ry Gonzalez MD - Last Filed: 03/29/21 01:38> Patient Disposition: Admitted As Inpatient <Ry Gonzalez MD - Last Filed: 03/29/21 01:38> Interventions: Admission Worksheet (ED) Last Done: 03/07/21 00:50 <Ry Gonzalez MD - Last Filed: 03/29/21 01:38> Discharge Date/Time: 03/07/21 01:31 <Ry Gonzalez MD - Last Filed: 03/29/21 01:38>
[2021-03-06] MEDS: methylPREDNISolone Sod Succ 125 MG/2 ML VIAL IVPUSH (15:48)
[2021-03-06] MEDS: LORazepam 2 MG/ML VIAL IVPUSH (15:49)
[2021-03-06] MEDS: Ketamine HCl/NS 50 MG/5 ML SYRINGE 40 MG IVPUSH (15:49)
--- NOTE | 2021-03-06 16:10 | PC.NURSE ---
MD copeland gave verbal order to MONET baron
--- NOTE | 2021-03-06 16:13 | PC.NURSE ---
rt contacted for neb and abg.
[2021-03-06] MEDS: Albuterol Sulfate (0.083%) 2.5 MG/3 ML VIAL.NEB 10 MG INHALE (16:22)
[2021-03-06] MEDS: Ipratropium Bromide 0.5 MG/2.5 ML SOLUTION INHALE (16:22)
--- NOTE | 2021-03-06 16:46 | PC.NURSE ---
phlebotomy contacted due to patient being a difficult stick. Labs were not able to be drawn off of port. Pt stated last time port was accessed, heparin was not administered prior do deaccessing. port was difficult flush, with +but minimal blood return.
--- NOTE | 2021-03-06 17:12 | PC.NURSE ---
educational technologist was unable to draw patient. will send colleague
--- NOTE | 2021-03-06 17:16 | PC.NURSE ---
ketan rn, certified surgical assistant, phelbotomy supervisor [facility], and phleb tech to try for labs.
--- NOTE | 2021-03-06 17:38 | PC.NURSE ---
during blood draw, patient became upset and began to force coughing. per patient i want more ketamine, i need it. or morphine/fentynal to help .
[2021-03-06 17:48] LABS: VBG Base Excess -4.9 mmol/L; VBG HCO3 20 mmol/L (22-26); VBG pCO2 38 mmHg; VBG pH 7.32 (7.32-7.43); VBG pO2 48 mmHg
[2021-03-06 17:48] LABS: Eosinophils Percent Auto 0.5 % (0-4); Hemoglobin 9.8 g/dl (12.0-16.0); MANUAL DIFF FLAG SCAN; SCAN SMEAR FLAG 1
[2021-03-06 17:48] LABS: Venous Blood Gas Refer to POC result
[2021-03-06 17:50] LABS: Basophils Percent Auto 0.3 % (0-2); Hematocrit 32.1 % (37-47); Imm Gran Abs Auto 0.04 X10*3/uL (0.00-0.03); Imm Gran Pct Auto 0.5 % (0.0-0.4); Lymphocytes Percent Auto 13.8 % (20-40); Mean Corpuscular HGB Conc 30.5 g/dl (31.0-35.0); Mean Corpuscular Hemoglobin 25.8 pg (27.0-33.0); Mean Corpuscular Volume 84.5 fL (80-98); Monocytes Absolute Auto 0.3 X10*3/uL (0.1-1.2); Monocytes Percent Auto 3.6 % (2-11); Neutrophils Absolute Auto 6.1 X10*3/uL (2.0-8.3); Neutrophils Percent Auto 81.3 % (45-73); PLT ABN DIST 1; Platelet Count 177 X10*3/uL (160-400); Red Cell Distribution Width 17.1 % (11.0-16.0); White Blood Count 7.5 X10*3/uL (4.8-10.8)
[2021-03-06 18:06] LABS: Anion Gap 16 (12-20); Blood Urea Nitrogen 11 mg/dL (9-16); Calcium 9.2 mg/dL (8.4-10.2); Carbon Dioxide 21 mmol/L (22-29); Chloride 108 mmol/L (96-108); Creatinine Clr Calc Pharmacy 61.1; Estimated Glomerular Filt Rate 56; Glucose Random 193 mg/dL (60-115); Potassium 3.7 mmol/L (3.3-5.1); Sodium 141 mmol/L (135-145)
[2021-03-06 18:08] LABS: SLIDE REVIEW VERIFIED
[2021-03-06] MEDS: fentaNYL citrate/PF 100 MCG/2 ML VIAL 25 MCG IVPUSH (18:34)
[2021-03-06] MEDS: Ketamine HCl/NS 50 MG/5 ML SYRINGE 25 MG IVPUSH (18:36)
--- NOTE | 2021-03-06 19:04 | PC.NURSE ---
Pt resting on stretcher, appears uncomfortable, ST in 130-140 on property assessment monitor. Pt maintaining O2 sat >95% on RA. Pt with persistent nonproductive cough. Pt lung sounds with expiratory wheezing bilaterally. Pt in upright position. Pt endorses MSCP CP. Pt awaiting ABG from RT and dispo. Pt stretcher in lowest locked position, rails raised, call agrawal within reach.
--- NOTE | 2021-03-06 19:07 | PC.NURSE ---
MD Davonte aware of this RN's assessment and pt's current vital signs.
--- NOTE | 2021-03-06 20:05 | PC.NURSE ---
RAFI HUTCHINSON AWARE OF PATIENT HIGH HEART RATE .
--- NOTE | 2021-03-06 20:15 | PC.NURSE ---
respiratory and Dr Pop at bedside.
--- NOTE | 2021-03-06 20:16 | PC.NURSE ---
Per Dr Pop, ABG no longer needed
[2021-03-06] MEDS: Albuterol Sulfate (0.083%) 2.5 MG/3 ML VIAL.NEB INHALE ×2 (20:19→20:25)
[2021-03-06] MEDS: LORazepam 1 MG TABLET PO (20:19)
[2021-03-06] MEDS: Albuterol/Iprat 2.5/0.5MG 3 ML AMPUL.NEB INHALE (20:27)
[2021-03-06 21:01] LABS: COVID-19 Test Negative (Negative); IDNOW Serial# 9DD0AD1C
[2021-03-06] MEDS: methylPREDNISolone Sod Succ 40 MG/ML VIAL IVPUSH (22:25)
--- NOTE | 2021-03-06 22:26 | PC.NURSE ---
Per Chrissy Rogers RN, pt port is approved for use by [facility] [place].
--- NOTE | 2021-03-06 22:53 | P.HPHOSP_ITS ---
History of Present Illness Date of Service: 03/06/21 Chief Complaint: shortness of breath This is a 50-year-old female with past medical history of asthma with multiple exacerbation within the last 1 year and readmissions to hospital for the same most recently 02/24, recurrent DVT, depression, anxiety, history of GI bleed, who presents to the hospital with complaints of persistent shortness of breath and cough. pt reports symptoms started today, cough, no sputum production, no fever or chills, no chest pain, no abdominal pain, nausea or vomiting, no diarrhea constipation, no urinary symptoms and no lower extremity edema. Patient reports that she tried her inhalers, with no success and therefore she decided to come to the hospital. On arrival patient's vital significant for temperature of 99.0?, heart rate of 113, respiratory rate of 18, blood pressure of 138/94, satting 97% on room air Lab significant for WBC count of 7.5, hemoglobin of 9.8 which is around her baseline pH of 7.32 CO2 of 38, CMP unremarkable, COVID-19 negative, Chest x-ray is negative for any acute disease acute disease. Review of Systems Review of Systems: Yes all other systems are reviewed and are negative [facility] Medical History Anxiety Asthma Atrial fibrillation CHF (congestive heart failure) Depression DVT (deep venous thrombosis) Hypertension Morbid obesity Social History Household Members: Family Housing: Apartment Do you presently have visiting nurse or other home services: No Alcohol intake: current Alcohol intake frequency: 0-2 drinks per day Smoking Status: Former smoker Second Hand Smoke Exposure: No Use of substances other than those prescribed or required for medical reasons: No Currently Displaying Signs/Symptoms of Drug Intoxication Withdrawal: No Any prior treatment program specific to substance use: No Have you been hit, kicked, punched, or otherwise hurt by someone within the past year? If so, by whom?: No Do you feel safe in your current relationship?: Yes Is there a partner from a previous relationship who is making you feel unsafe now?: No Are you made to feel afraid or neglected: No Advance Directives: Yes Advance Directives on File: Yes Advance Directives Date on File: 09/06/20 Do you have thoughts of harming others: None Do you have a plan to hurt others: No Plan Recently lost weight without trying: No Eating poorly because of decreased appetite: Yes Patient : No : No Poor oral hygiene: No service: No Current occupational status: disabled Meds Allergies Allergy/AdvReac Type Severity Reaction Status Date / Time azithromycin Allergy Intermediate ITCHING Verified 03/06/21 20:19 [From ZITHROMAX Z-XANDER] amoxicillin [AMOXICILLIN] Allergy Unknown UNKNOWN, Verified 03/06/21 20:19 hives, swelling budesonide [From SYMBICORT] Allergy Unknown UNKNOWN Verified 03/06/21 20:19 cefpodoxime [From VANTIN] Allergy Unknown UNKNOWN Verified 03/06/21 20:19 cefuroxime [From CEFTIN] Allergy Unknown UNKNOWN Verified 03/06/21 20:19 Cephalosporins Allergy Unknown UNKNOWN Verified 03/06/21 20:19 [CEPHALOSPORINS] ciprofloxacin [From CIPRO] Allergy Unknown UNKNOWN Verified 03/06/21 20:19 diphtheria,pertussis Allergy Unknown Unknown Verified 03/06/21 20:19 (acellular),te [Adacel(Tdap Adolesn/Adult)(PF)] erythromycin base Allergy Unknown UNKNOWN Verified 03/06/21 20:19 [ERYTHROMYCIN BASE] fluticasone [Advair Diskus] Allergy Unknown Unknown Verified 03/06/21 20:19 formoterol [From SYMBICORT] Allergy Unknown UNKNOWN Verified 03/06/21 20:19 hydrocodone [From VICODIN] Allergy Unknown unknown Verified 03/06/21 20:19 Iodinated Contrast Media Allergy Unknown UNKNOWN Verified 03/06/21 20:19 [CONTRAST, IV] levofloxacin [From LEVAQUIN] Allergy Unknown UNKNOWN Verified 03/06/21 20:19 penicillin G Allergy Unknown Unknown Verified 03/06/21 20:19 penicillin V Allergy Unknown Unknown Verified 03/06/21 20:19 Penicillins [PENICILLINS] Allergy Unknown UNKNOWN Verified 03/06/21 20:19 salmeterol [Advair Diskus] Allergy Unknown Unknown Verified 03/06/21 20:19 sertraline [From ZOLOFT] Allergy Unknown SUICIDAL Verified 03/06/21 20:19 Sulfa (Sulfonamide Allergy Unknown hives Verified 03/06/21 20:19 Antibiotics) tetanus and diphtheria Allergy Unknown UNKNOWN Verified 03/06/21 20:19 toxoids [TETANUS & DIPHTHERIA TOXOIDS] Vantin Allergy Unknown Unknown Verified 03/06/21 20:19 ketorolac [From TORADOL] AdvReac Mild ITCHING Verified 03/06/21 20:19 Ceftin Allergy Unknown Unknown Uncoded 03/06/21 20:19 IV dye Allergy Unknown Unknown Uncoded 03/06/21 20:19 Symbicort Allergy Unknown Unknown Uncoded 03/06/21 20:19 Tetanus Allergy Unknown Unknown Uncoded 03/06/21 20:19 Erythromycin Allergy Unknown Uncoded 03/06/21 20:19 Active Medications: Current Medications Generic Name Dose Route Start Last Admin Trade Name Freq PRN Reason Stop Dose Admin Acetaminophen 650 mg 03/06/21 22:02 Acetaminophen 325 Mg Tablet PO Q6H PRN Pain, Mild (Pain Scale 1-3) Albuterol/Ipratropium 3 ml 03/07/21 08:00 Albuterol/Iprat 2.5/0.5mg 3 Ml Ampul.Neb INHALE RQ4H WHILE AWAKE ONEIDA Albuterol/Ipratropium 3 ml 03/06/21 22:02 Albuterol/Iprat 2.5/0.5mg 3 Ml Ampul.Neb INHALE Q4H PRN Shortness of Breath/Wheezing Diltiazem HCl 180 mg 03/07/21 09:00 Diltiazem Hcl Cd 180 Mg Cap.Er.24h PO DAILY [facility] Protocol Docusate Sodium 100 mg 03/06/21 22:02 Docusate Sodium 100 Mg Capsule PO DAILY PRN Constipation Fluoxetine HCl 60 mg 03/07/21 09:00 Fluoxetine Hcl 20 Mg Capsule PO DAILY [facility] Hydrocodone Bit/Homatropine Methylb 5 ml 03/06/21 22:02 Hydrocodone/Homat 5/1.5/5 Ml 5 Ml Syrup PO Q6H PRN Cough Methylprednisolone Sodium Succinate 40 mg 03/06/21 22:02 03/06/21 22:25 Methylprednisolone Sod Succ 40 Mg/Ml Vial IVPUSH 40 mg Q12H ONEIDA Administration Omeprazole 40 mg 03/07/21 21:00 Omeprazole 40 Mg Capsule.Dr PO BEDTIME ONEIDA Ondansetron HCl 4 mg 03/06/21 22:02 Ondansetron Hcl 4 Mg/2 Ml Vial IVPUSH Q8H PRN Nausea and Vomiting Pharmacy Consult 1 each 03/06/21 19:44 Consult Rx Perform Med Rec MISCELLANE ONCE PRN Consult order Risperidone 0.5 mg 03/07/21 21:00 Risperidone 0.5 Mg Tablet PO BEDTIME [facility] Sodium Chloride 3 ml 03/07/21 00:00 0.9 % Sodium Chloride Flush 3 Ml Syringe IVFLUSH QSHIFT [facility] Topiramate 50 mg 03/07/21 21:00 Topiramate 25 Mg Tablet PO BEDTIME [facility] Trazodone HCl 150 mg 03/07/21 21:00 Trazodone Hcl 50 Mg Tablet PO BEDTIME [facility] Warfarin Sodium 10 mg 03/08/21 18:00 Warfarin Sodium 10 Mg Tablet PO [email or web address] [facility] Warfarin Sodium 10 mg/ 12.5 mg 03/07/21 18:00 Warfarin Sodium 2.5 mg PO [email or web address] [facility] Home Medications Medication Instructions Recorded Confirmed Last Taken Type diltiazem HCl 180 mg PO DAILY 09/03/20 03/06/21 02/16/21 History fluoxetine 60 mg PO DAILY 09/03/20 03/06/21 02/16/21 History montelukast 10 mg PO BEDTIME 09/03/20 03/06/21 02/15/21 History risperidone 0.5 mg PO BEDTIME 09/03/20 03/06/21 02/15/21 History topiramate 50 mg PO BEDTIME 09/03/20 03/06/21 02/15/21 History trazodone 150 mg PO BEDTIME 09/03/20 03/06/21 02/15/21 History omeprazole 40 mg PO BEDTIME 02/16/21 03/06/21 02/16/21 History warfarin 12.5 mg PO SUWEFR 02/16/21 03/06/21 Unknown History warfarin 1 tab PO MOTUTHSA 03/06/21 03/06/21 Unknown History Physical Exam Vital Signs and Narrative: Vital Signs: Last Vital Signs Temp 97.8 F 03/06/21 22:02 Pulse 114 H 03/06/21 22:02 Resp 18 03/06/21 22:02 BP 107/60 03/06/21 22:02 Pulse Ox 93 03/06/21 22:02 Body Mass Index 35.2 Const: General: cooperative and no acute distress Orientation/consciousness: patient oriented x3 Eyes: General: appearance normal, both eyes and all related structures Resp: Other: Constant coughing, wheezing, Cardio: Rate: regular rate Rhythm: regular rhythm GI: Palpation (GI): Soft to palpation Auscultation: normal bowel sounds Skin: General skin exam: no rashes or lesions noted Neuro: General: patient oriented x3 Cognition (Neuro): normal cognition Extrem: General: Yes normal to inspection and Yes no pedal edema Results Labs CBC and Chem 7: 03/06/21 15:35 03/06/21 15:35 Labs: Laboratory Results - last 24 hr 03/06/21 03/06/21 03/06/21 15:35 15:35 17:39 MCV 84.5 MCH 25.8 L MCHC 30.5 L RDW 17.1 H Plt Count 177 D MPV 12.0 Immature Gran % (Auto) 0.5 H Neut % (Auto) 81.3 H Lymph % (Auto) 13.8 L [place] % (Auto) 3.6 Eos % (Auto) 0.5 Baso % (Auto) 0.3 Lymph # (Auto) 1.0 L [place] # (Auto) 0.3 Eos # (Auto) 0.0 Baso # (Auto) 0.0 Abs Immat Gran (auto) 0.04 H Absolute Neuts (auto) 6.1 Absolute Nucleated RBC 0.000 Nucleated RBC % (auto) 0.0 Smear Tech's Comments VERIFIED VBG pH 7.32 VBG pCO2 38 VBG pO2 48 VBG HCO3 20 L VBG O2 Saturation 74.0 VBG Base Excess -4.9 Anion Gap 16 Estim Creat Clear Calc 61.1 Estimated GFR 56 Random Glucose 193 H Calcium 9.2 COVID-19 (ELYSE) COVID-19 Clin Com 03/06/21 20:39 MCV MCH MCHC RDW Plt Count MPV Immature Gran % (Auto) Neut % (Auto) Lymph % (Auto) [place] % (Auto) Eos % (Auto) Baso % (Auto) Lymph # (Auto) [place] # (Auto) Eos # (Auto) Baso # (Auto) Abs Immat Gran (auto) Absolute Neuts (auto) Absolute Nucleated RBC Nucleated RBC % (auto) Smear Tech's Comments VBG pH VBG pCO2 VBG pO2 VBG HCO3 VBG O2 Saturation VBG Base Excess Anion Gap Estim Creat Clear Calc Estimated GFR Random Glucose Calcium COVID-19 (ELYSE) Negative COVID-19 Clin Com See Note Imaging Radiologist's Impressions: Impressions Chest X-Ray 03/06/21 15:35 IMPRESSION: Unremarkable chest exam. Assessment and Plan (1) Acute exacerbation of chronic obstructive airways disease: Status: Acute (2) Anxiety: Status: Acute 50-year-old female with was known to our service for multiple admissions for asthma exacerbation returns today after being discharged only few hours prior with complaints of shortness of breath and cough # asthma exacerbation - Solu-Medrol IV - DuoNeb q.i.d. and p.r.n. - cough suppressant - I believe there is large aspect of anxiety as well as possible medical attention seeking and possible opioid seeking behavior also notable because patient comes in asking for ketamine in majority of admissions as well as fentanyl and morphine - monitor respiratory status # Recurrent DVT - will check PT/INR - Continue warfarin # anxiety = continue risperidone, trazodone and fluoxetine # hypertension -stable - Continue diltiazem DVT prophylaxis: Warfarin
[2021-03-07] VITALS (13 sets, daily range): BP systolic 103–176; BP diastolic 58–81; PULSE 96–123; RESP 17–19; TEMP 36.4–37.1; O2SAT 94–99
[2021-03-07] MEDS: HYDROcodone/Homat 5/1.5/5 ML 5 ML SYRUP PO ×3 (02:02→17:14)
[2021-03-07] MEDS: Albuterol/Iprat 2.5/0.5MG 3 ML AMPUL.NEB INHALE ×5 (02:11→19:59)
[2021-03-07] MEDS: diphenhydrAMINE HCL 50 MG/ML VIAL IVPUSH ×2 (02:58→20:58)
[2021-03-07 06:46] LABS: Hematocrit 29.7 % (37-47); Imm Gran Abs Auto 0.04 X10*3/uL (0.00-0.03); Imm Gran Pct Auto 0.6 % (0.0-0.4); Lymphocytes Absolute Auto 0.3 X10*3/uL (1.2-4.9); Lymphocytes Percent Auto 5.4 % (20-40); MANUAL DIFF FLAG SCAN; Mean Corpuscular HGB Conc 30.3 g/dl (31.0-35.0); Mean Corpuscular Hemoglobin 25.4 pg (27.0-33.0); Mean Corpuscular Volume 83.9 fL (80-98); Mean Platelet Volume 12.9 fL (9.4-12.3); Monocytes Percent Auto 0.5 % (2-11); Neutrophils Absolute Auto 5.9 X10*3/uL (2.0-8.3); Neutrophils Percent Auto 93.5 % (45-73); Platelet Count 220 X10*3/uL (160-400); Red Blood Count 3.54 X10*6/uL (4.20-5.50); Red Cell Distribution Width 17.1 % (11.0-16.0); SCAN SMEAR FLAG 1; White Blood Count 6.3 X10*3/uL (4.8-10.8)
[2021-03-07 07:02] LABS: INTERNATIONAL NORM RATIO 1.7 (0.9-1.1); Prothrombin Time 20.7 SEC (10.8-13.0)
[2021-03-07 07:18] LABS: Anion Gap 16 (12-20); Blood Urea Nitrogen 15 mg/dL (9-16); Calcium 9.4 mg/dL (8.4-10.2); Carbon Dioxide 19 mmol/L (22-29); Chloride 109 mmol/L (96-108); Estimated Glomerular Filt Rate > 60; Glucose Random 286 mg/dL (60-115); Potassium 4.3 mmol/L (3.3-5.1); Sodium 140 mmol/L (135-145)
[2021-03-07 07:28] LABS: SLIDE REVIEW VERIFIED
[2021-03-07] MEDS: 0.9 % Sodium Chloride Flush 3 ML SYRINGE IVFLUSH (07:43)
--- NOTE | 2021-03-07 08:40 | HO.PM.IMPN ---
Subjective Subjective Date of Service: 03/08/21 Interval History: copd excerebation Review of Systems Patient is somewhat short of breath but otherwise seems near baseline. Denies any cough or phlegm or fever or chills., feels anxious Physical Exam Vital Signs: Vital Signs: Last Vital Signs Temp 98.7 F 03/07/21 07:34 Pulse 109 H 03/07/21 07:34 Resp 19 03/07/21 07:34 BP 176/81 H 03/07/21 07:34 Pulse Ox 96 03/07/21 07:34 Body Mass Index 35.2 Physical exam: Constitutional: Does not seem to be in acute distress Cvs: rrr, [id number] , no murmur res: grossly fair air entry, few scattered rhonchii or no wheezing abd: no rebound or guarding ,nt, bs present. ext pulses present , no cyanosis neuro: axo3 , nonfocal. Objective Data Current Medications Generic Name Dose Route Start Last Admin Trade Name Freq PRN Reason Stop Dose Admin Acetaminophen 650 mg 03/06/21 22:02 Acetaminophen 325 Mg Tablet PO Q6H PRN Pain, Mild (Pain Scale 1-3) Albuterol/Ipratropium 3 ml 03/07/21 08:00 03/07/21 07:29 Albuterol/Iprat 2.5/0.5mg 3 Ml Ampul.Neb INHALE 3 ml RQ4H WHILE AWAKE ONEIDA Administration Albuterol/Ipratropium 3 ml 03/06/21 22:02 03/07/21 02:11 Albuterol/Iprat 2.5/0.5mg 3 Ml Ampul.Neb INHALE 3 ml Q4H PRN Administration Shortness of Breath/Wheezing Diltiazem HCl 180 mg 03/07/21 09:00 Diltiazem Hcl Cd 180 Mg Cap.Er.24h PO DAILY [facility] Protocol Docusate Sodium 100 mg 03/06/21 22:02 Docusate Sodium 100 Mg Capsule PO DAILY PRN Constipation Fluoxetine HCl 60 mg 03/07/21 09:00 Fluoxetine Hcl 20 Mg Capsule PO DAILY [facility] Hydrocodone Bit/Homatropine Methylb 5 ml 03/06/21 22:02 03/07/21 02:02 Hydrocodone/Homat 5/1.5/5 Ml 5 Ml Syrup PO 5 ml Q6H PRN Administration Cough Methylprednisolone Sodium Succinate 40 mg 05/18/21 22:02 03/06/21 22:25 Methylprednisolone Sod Succ 40 Mg/Ml Vial IVPUSH 40 mg Q12H ONE[place] Administration Omeprazole 40 mg 03/07/21 21:00 Omeprazole 40 Mg Capsule. PO BEDTIME [facility] Ondansetron HCl 4 mg 03/06/21 22:02 Ondansetron Hcl 4 Mg/2 Ml Vial IVPUSH Q8H PRN Nausea and Vomiting Pharmacy Consult 1 each 03/06/21 19:44 Consult Rx Perform Med Rec MISCELLANE ONCE PRN Consult order Risperidone 0.5 mg 03/07/21 21:00 Risperidone 0.5 Mg Tablet PO BEDTIME [facility] Sodium Chloride 3 ml 03/07/21 00:00 03/07/21 07:43 0.9 % Sodium Chloride Flush 3 Ml Syringe IVFLUSH 3 ml QSHIFT [facility] Administration Topiramate 50 mg 03/07/21 21:00 Topiramate 25 Mg Tablet PO BEDTIME [facility] Trazodone HCl 150 mg 03/07/21 21:00 Trazodone Hcl 50 Mg Tablet PO BEDTIME [facility] Warfarin Sodium 10 mg 03/08/21 18:00 Warfarin Sodium 10 Mg Tablet PO [id number] [facility] Warfarin Sodium 10 mg/ 12.5 mg 03/07/21 18:00 Warfarin Sodium 2.5 mg PO [email or web address]@1800 [facility] Labs CBC & Chem 7: 03/07/21 06:06 03/07/21 06:06 Assessment and Plan (1) Acute exacerbation of chronic obstructive airways disease: Status: Acute (2) Anxiety: Status: Acute Assessment and Plan: 50-year-old female with was known to our service for multiple admissions for asthma exacerbation returns today after being discharged only few hours prior with complaints of shortness of breath and cough 1. asthma exacerbation Seems shortness of breath is significantly improved, sats are totally fine. Will continue to monitor, -continue nebs and steroids for now, cough medication.. 2.Recurrent DVT - will check PT/INR sutherapeutic - Continue warfarin, willrecheck inr in am 3. anxiety:continue risperidone, trazodone and fluoxetine 4.hypertension -stable - Continue diltiazem
--- NOTE | 2021-03-07 10:21 | MHC.CM.PN ---
IMM 03/07/21, EMR REVIEWED, PT ADMITTED W/ ASTHMA EXACERBATION, CM MET W/ PT WHO REPORTS SHE LIVES W/ AND SON, PT'S ONLY DME IS A NEBULIZER AND PT HAS NO HOME SERVICES, PT VERIFIES PCPS AND PHARMACY AND HAS HCP ON FILE FROM PREVIOUS VISIT. PT IS ON DIAZEPAM, FLUOXETINE AND RISPERIDONE WHICH HER PCP DR. MAJOR CURRENTLY ORDERS, PT REPORTS SHE HAS BEEN DIFFICULTY FINDING A THERAPIST AND WAS OFFERED CARE TEAM WHO CAN REFER PT TO [facility], PT REPORTS SHE IS WILLING TO TRAVEL TO [place] HOWEVER DOES NOT WANT TO HAVE TO TRAVEL TO [facility] TO SEE A THERAPIST. PCP: DR. OATES HCP: SPARKLE BUCK ([place]) [phone] D/C PLAN: HOME SELF-CARE, REFERRAL FOR [facility] COUNSELING, FAMILY FOR TRANSPORT
[2021-03-07] MEDS: dilTIAZem HCL CD 180 MG CAP.ER.24H PO (10:27)
[2021-03-07] MEDS: FLUoxetine HCl 20 MG CAPSULE 60 MG PO (10:27)
[2021-03-07] MEDS: Heparin Sodium,Porcine Flush 50 UNITS, 0.9 % Sodium Chloride Flush 5 ML IVFLUSH (10:27)
[2021-03-07] MEDS: diphenhydrAMINE HCL 50 MG/ML VIAL 25 MG IVPUSH ×2 (10:27→17:45)
[2021-03-07] MEDS: methylPREDNISolone Sod Succ 40 MG/ML VIAL IVPUSH ×2 (10:27→20:58)
[2021-03-07] MEDS: Acetaminophen 325 MG TABLET 650 MG PO ×2 (10:28→17:13)
--- NOTE | 2021-03-07 16:08 | MHC.CARE ---
CARE Team met with Pt who reported she is need of a therapist and pyschiatrist due to PCP stating she will no longer prescriber her pysch medications. She reports she had a lapse in health insurance which made her loose her previous providers through [facility]. Pt reports difficulty obtaining new mental health providers. Pt reports overall no concerns regarding her mental health or needing a medication adjustment. CARE Team to refer Pt to [facility] for mental health providers.
[2021-03-07] MEDS: traZODone HCL 50 MG TABLET 150 MG PO (20:58)
[2021-03-07] MEDS: hydrOXYzine HCL 25 MG TABLET PO (20:58)
[2021-03-07] MEDS: Topiramate 25 MG TABLET 50 MG PO (20:59)
[2021-03-07] MEDS: risperiDONE 0.5 MG TABLET PO (20:59)
[2021-03-07] MEDS: Omeprazole 40 MG CAPSULE.DR PO (20:59)
[2021-03-08] VITALS: BP 165/81; PULSE 79; RESP 18; TEMP 35.7; O2SAT 98
[2021-03-08 03:43] VITALS: BP 156/79; PULSE 93; RESP 20; TEMP 36.6; O2SAT 97
[2021-03-08] MEDS: diphenhydrAMINE HCL 50 MG/ML VIAL 25 MG IVPUSH (04:52)
[2021-03-08] MEDS: HYDROcodone/Homat 5/1.5/5 ML 5 ML SYRUP PO ×2 (04:52→10:06)
[2021-03-08] MEDS: Albuterol/Iprat 2.5/0.5MG 3 ML AMPUL.NEB INHALE ×2 (07:16→11:14)
[2021-03-08 07:18] VITALS: PULSE 84; O2SAT 96
[2021-03-08 07:47] VITALS: BP 137/69; PULSE 87; RESP 18; TEMP 36.6; O2SAT 98
[2021-03-08] MEDS: dilTIAZem HCL CD 180 MG CAP.ER.24H PO (09:03)
[2021-03-08] MEDS: FLUoxetine HCl 20 MG CAPSULE 60 MG PO (09:04)
[2021-03-08] MEDS: Heparin Sodium,Porcine Flush 50 UNITS, 0.9 % Sodium Chloride Flush 5 ML IVFLUSH (09:05)
[2021-03-08 09:10] LABS: INTERNATIONAL NORM RATIO 1.9 (0.9-1.1); Prothrombin Time 22.1 SEC (10.8-13.0)
[2021-03-08] MEDS: diphenhydrAMINE HCL 50 MG/ML VIAL IVPUSH (10:07)
[2021-03-08 11:16] VITALS: PULSE 89; O2SAT 96
--- NOTE | 2021-03-08 13:18 | MHC.CM.PN ---
PT DISCHARGING TODAY HOME SELF-CARE W/APPT'S FOR APPTS FOR [facility] COUNSELING LISTED BELOW, PER PT PCP IS MAKING REFERRALS FOR PULMONOLGY FOR PT THROUGH [facility] FOR TRANSPORT. [facility] COUNSELING APPT'S 03/12/21 10AM [facility] ASSESSMENT & DIAGNOSTIC INTAKE 04/04/21 9:20AM [facility] FOR PSYCH EVAL 04/30/21 11:30AM [facility] HORAN, MED MANAGEMENT
--- NOTE | 2021-03-08 13:20 | PM.DS ---
DS: Providers Provider Date of Service: 03/10/21 Date of admission: 03/06/21 21:52 Primary care physician: Unknown Physician Consults: 03/07/21 11:52 Consult to Care Team Routine Comment: Reason for consultation: anxiety DS: Diagnosis Discharge Diagnosis (1) Acute exacerbation of chronic obstructive airways disease: Status: Acute (2) Anxiety: Status: Acute DS: Medications Discharge Medications Home Medications: Home Medications Medication Instructions Recorded Confirmed diltiazem HCl 180 mg PO DAILY 09/03/20 03/06/21 fluoxetine 60 mg PO DAILY 09/03/20 03/06/21 montelukast 10 mg PO BEDTIME 09/03/20 03/06/21 risperidone 0.5 mg PO BEDTIME 09/03/20 03/06/21 topiramate 50 mg PO BEDTIME 09/03/20 03/06/21 trazodone 150 mg PO BEDTIME 09/03/20 03/06/21 omeprazole 40 mg PO BEDTIME 02/16/21 03/06/21 warfarin 12.5 mg PO SUWEFR 02/16/21 03/06/21 warfarin 1 tab PO MOTUTHSA 03/06/21 03/06/21 Trelegy Ellipta 1 puff PO DAILY 03/08/21 03/08/21 ipratropium-albuterol 3 ml INHALATION Q6H PRN 03/08/21 03/08/21 Previous Rx's Medication Instructions Recorded dextromethorphan-guaifenesin 10 ml PO Q4-8H PRN #118 ml 03/08/21 [Robitussin Cough-Chest Saad DM] DS: Summary Hospital Course Hospital Course: 50-year-old female with a past medical history of hypertension, anxiety, depression, morbid obesity, DVT, AFib, CHF, multiple allergies to medications presented to the hospital with chief complaint of shortness of breath. Noted to be in acute asthma exacerbation Patient initially admitted for Acute asthma exacerbation: Patient was started on nebs and steroids and coughs medication Patient feeling better, complaining of less shortness of breath, no overnight issues no fever chills, currently on high-flow oxygen finger oximetry 97%, lung sounds are clear Patient sats seems to be fine, no shortness of breath, question that patient probably have these symptoms related to her anxiety related rather than asthma. No cause of acute exacerbation found to no evidence of acute infection, no allergy symptoms likely anxiety contributing to her symptoms. Continue her home asthma medications include Anxiety virk also seen care team and given information in detail. DVT/AFib : inr is improving to 1.9 (borderline ), we will continue current warfarin dose and patient needs her INR checked out patiently with PCP. History of CHF: No acute exacerbation,continue home medications. Above management discussed with the patient in detail length she understand and in agreement with the above plan, time spent 50 minutes and 50% time spent on counseling. Significant findings: As above. Procedures performed: None. Treatment and response: As above. Complications: None. Time Spent with Patient Time attestation: Total time spent providing and/or coordinating discharge services: Discharge coordination time: Greater than 30 minutes Quality: Stroke Does the patient have a stroke diagnosis?: No Physical Exam Vital Signs: Vital Signs: Last Vital Signs Temp 97.8 F 03/08/21 07:47 Pulse 89 03/08/21 11:16 Resp 18 03/08/21 07:47 BP 137/69 03/08/21 07:47 Pulse Ox 98 03/08/21 07:47 Body Mass Index 35.2 Physical exam: Constitutional: Not in acute distress Cvs: rrr, [id number] , no murmur res: clear to auscultation ,no rhonchii or wheezing abd: no rebound or guarding ,nt, bs present. ext pulses present , no cyanosis neuro: axo3 , nonfocal. DS: Data Data Completed and Pending Completed studies during hospitalization [Text1]: Procedures Assistance with Respiratory Ventilation, Less than 24 Consecutive Hours, Continuous Positive Airway Pressure (02/16/21) Labs on day of discharge: Laboratory Results - last 24 hr 03/08/21 08:16 PT 22.1 H INR 1.9 H Discharge Plan Discharge Patient Disposition: Home, Self-Care Discharge Diagnosis: asthma , anxiety Referrals: [facility] [Other] - 1 Week (All Appointments listed below are telehealth appts. 03/12/21 10am-11am with Yari Dozier, Assessment and Diagnostic Intake 04/04/21 9:20am -10:20am with Regina Martinez, Psychiatric Evaluation 04/30/21 11:30am-11:50am with Regina Martinez, Medication Management ) Physician,Unknown [Primary Care Provider] - 1 Week (Patient has follow up on 03/12/2021 at 1:30 pm to discuss this visit) Discharge Medications: New Robitussin Cough-Chest Saad DM 5-100 mg/5 mL liquid 10 ml PO Q4-8H PRN (Reason: cough) Qty: 118 RF: 0 Continued diltiazem HCl 180 mg Capsule,Extended Release 24 Hr 180 mg PO DAILY RF: 0 risperidone 0.25 mg Tablet 0.5 mg PO BEDTIME RF: 0 montelukast 10 mg Tablet 10 mg PO BEDTIME RF: 0 topiramate 50 mg Tablet 50 mg PO BEDTIME RF: 0 fluoxetine 60 mg Tablet 60 mg PO DAILY RF: 0 trazodone 100 mg Tablet 150 mg PO BEDTIME RF: 0 warfarin 5 mg Tablet 12.5 mg PO SUWEFR RF: 0 Hold Instructions: Resume on 02/27/21. Change dose to 10mg and check inr on 02/27/21 if below 3 start coumadin 10mg omeprazole 40 mg Capsule,Delayed Release(Dr/Ec) 40 mg PO BEDTIME RF: 0 warfarin 10 mg tablet 1 tab PO MOTUTHSA RF: 0 Trelegy Ellipta 100-62.5-25 mcg blister with device 1 puff PO DAILY RF: 0 ipratropium-albuterol 0.5 mg-3 mg(2.5 mg base)/3 mL Solution For Nebulization 3 ml INHALATION Q6H PRN (Reason: Wheezing) RF: 0 Discharge Orders: Discharge Order (Routine); Ordered 03/08/21 Ordered By: Hank Roberts Diet: advance to usual diet Activity on Discharge: As tolerated Stand Alone Forms: Patient Portal Discharge page Care Plan Goals: Patient asthma virk shortness of breath is seems to be improved. Patient will be going home will continue her home medications. In addition patient was advised to follow up with Pulmonary out patiently as per the patient she is already in the process with her PCP to get there. Further management outpatient as per PCP. Health Concerns: As above. Plan of Treatment: As above. Assessment: As above. Discharge Date/Time: 03/08/21 14:55
== END 2021-03-08 14:55 | disposition home or self-care (01) | DRG 202 ==
LOC: HO.ED 19:43 → HO.EDOVER 22:00 → HO.S3 03-07 00:38
PROVIDERS: Emergency Medicine; Admitting Provider Internal Medicine; Emergency Provider Emergency Medicine; PCP Family Medicine; Visit Provider Internal Medicine
DX: J45.901 Unspecified asthma with (acute) exacerbation (principal); J44.1 Chronic obstructive pulmonary disease with (acute) exacerbation; F41.9 Anxiety disorder, unspecified; I11.0 Hypertensive heart disease with heart failure; E66.01 Morbid (severe) obesity due to excess calories; I48.91 Unspecified atrial fibrillation; I50.9 Heart failure, unspecified; Z68.35 Body mass index [BMI] 35.0-35.9, adult; Z86.718 Personal history of other venous thrombosis and embolism; Z76.5 Malingerer [conscious simulation]; Z20.822 Contact with and (suspected) exposure to COVID-19; Z88.0 Allergy status to penicillin; Z88.2 Allergy status to sulfonamides; Z79.01 Long term (current) use of anticoagulants; Z79.899 Other long term (current) drug therapy
CPT/HCPCS: 36415; 71045; 80048; 85025; 85610; 87635; 94640; 94644; 94645; 96374; 96375; 99285; J1200; J1642; J2060; J2920; J2930; J3010

== ENCOUNTER 2021-03-14 20:54 | Emergency (ER) | payer MEDICARE, MEDICAID, SELFPAY ==
[2021-03-14 21:05] VITALS: BP 139/80; PULSE 93; RESP 20; TEMP 36.9; O2SAT 98; BMI 43.0
[2021-03-14 21:09] VITALS: BP 130/80; PULSE 88; O2SAT 98
--- NOTE | 2021-03-14 21:22 | ED_ITS ---
HPI - Allergic Reaction General Chief complaint: Allergic Reaction Stated complaint: HIVES/ITCH S/P 1ST MODERNA SHOT Time Seen by Provider: 03/14/21 21:00 Source: patient Mode of arrival: ambulatory Limitations: no limitations History of Present Illness HPI narrative: Patient comes emergency room complaining of itchiness in her head and face after receiving her COVID-19 shot at 18:30. Patient complaining of itchiness all over her body. Patient denies shortness of breath, no facial swelling, no foreign body sensation in her throat. Only itchiness. Related Data Home Medications Medication Instructions Recorded Confirmed diltiazem HCl 180 mg PO DAILY 09/03/20 03/06/21 fluoxetine 60 mg PO DAILY 09/03/20 03/06/21 montelukast 10 mg PO BEDTIME 09/03/20 03/06/21 risperidone 0.5 mg PO BEDTIME 09/03/20 03/06/21 topiramate 50 mg PO BEDTIME 09/03/20 03/06/21 trazodone 150 mg PO BEDTIME 09/03/20 03/06/21 omeprazole 40 mg PO BEDTIME 02/16/21 03/06/21 warfarin 12.5 mg PO SUWEFR 02/16/21 03/06/21 warfarin 1 tab PO MOTUTHSA 03/06/21 03/06/21 Trelegy Ellipta 1 puff PO DAILY 03/08/21 03/08/21 ipratropium-albuterol 3 ml INHALATION Q6H PRN 03/08/21 03/08/21 Previous Rx's Medication Instructions Recorded dextromethorphan-guaifenesin 10 ml PO Q4-8H PRN #118 ml 03/08/21 [Robitussin Cough-Chest Saad DM] dextromethorphan-guaifenesin 2 tab-cap PO Q4-6H PRN #1 cap 03/14/21 [Robitussin Cough-Chest Saad DM] Allergies Allergy/AdvReac Type Severity Reaction Status Date / Time azithromycin Allergy Intermediate ITCHING Verified 03/06/21 20:19 [From ZITHROMAX Z-XANDER] amoxicillin [AMOXICILLIN] Allergy Unknown UNKNOWN, Verified 03/06/21 20:19 hives, swelling budesonide [From SYMBICORT] Allergy Unknown UNKNOWN Verified 03/06/21 20:19 cefpodoxime [From VANTIN] Allergy Unknown UNKNOWN Verified 03/06/21 20:19 cefuroxime [From CEFTIN] Allergy Unknown UNKNOWN Verified 03/06/21 20:19 Cephalosporins Allergy Unknown UNKNOWN Verified 03/06/21 20:19 [CEPHALOSPORINS] ciprofloxacin [From CIPRO] Allergy Unknown UNKNOWN Verified 03/06/21 20:19 diphtheria,pertussis Allergy Unknown Unknown Verified 03/06/21 20:19 (acellular),te [Adacel(Tdap Adolesn/Adult)(PF)] erythromycin base Allergy Unknown UNKNOWN Verified 03/06/21 20:19 [ERYTHROMYCIN BASE] fluticasone [Advair Diskus] Allergy Unknown Unknown Verified 03/06/21 20:19 formoterol [From SYMBICORT] Allergy Unknown UNKNOWN Verified 03/06/21 20:19 hydrocodone [From VICODIN] Allergy Unknown unknown Verified 03/06/21 20:19 Iodinated Contrast Media Allergy Unknown UNKNOWN Verified 03/06/21 20:19 [CONTRAST, IV] levofloxacin [From LEVAQUIN] Allergy Unknown UNKNOWN Verified 03/06/21 20:19 penicillin G Allergy Unknown Unknown Verified 03/06/21 20:19 penicillin V Allergy Unknown Unknown Verified 03/06/21 20:19 Penicillins [PENICILLINS] Allergy Unknown UNKNOWN Verified 03/06/21 20:19 salmeterol [Advair Diskus] Allergy Unknown Unknown Verified 03/06/21 20:19 sertraline [From ZOLOFT] Allergy Unknown SUICIDAL Verified 03/06/21 20:19 Sulfa (Sulfonamide Allergy Unknown hives Verified 03/06/21 20:19 Antibiotics) tetanus and diphtheria Allergy Unknown UNKNOWN Verified 03/06/21 20:19 toxoids [TETANUS & DIPHTHERIA TOXOIDS] Vantin Allergy Unknown Unknown Verified 03/06/21 20:19 ketorolac [From TORADOL] AdvReac Mild ITCHING Verified 03/06/21 20:19 Ceftin Allergy Unknown Unknown Uncoded 03/06/21 20:19 IV dye Allergy Unknown Unknown Uncoded 03/06/21 20:19 Symbicort Allergy Unknown Unknown Uncoded 03/06/21 20:19 Tetanus Allergy Unknown Unknown Uncoded 03/06/21 20:19 Erythromycin Allergy Unknown Uncoded 03/06/21 20:19 Review of Systems Review of Systems: Constitutional : No Weight loss, No Fever, No Chills, No Night Sweats, No Fatigue, No Malaise ENT/Mouth : No Hearing loss, No Ear Pain, No Nasal Congestion, No Sinus Pain, No Hoarseness, No sore throat, No Rhinorrhea, No Swallowing Difficulty Eyes: No Eye Pain, No Swelling, No Redness, No Foreign Body, No Discharge, No Vision Changes Cardiovascular : No Chest Pain, No SOB, No Dyspnea on Exertion, No Orthopnea, No Edema, No Palpitations Respiratory : No Cough, No Sputum, No Wheezing, No Smoke Exposure, No Dyspnea Gastrointestinal : No Nausea, No Vomiting, No Diarrhea, No Constipation, No abdominal Pain, No Hematochezia, No Melena Genitourinary : no irregular bleeding, No Dysuria, No Urinary Frequency, No Hematuria, No Urinary Incontinence, No Urgency, No Flank Pain, No Urinary Flow Changes, No Hesitancy Musculoskeletal : No joint pain, No Myalgias, No Joint Swelling Skin : Itchiness in scalp and face Neuro : No Weakness, No Numbness, No Paresthesias, No Loss of Consciousness, No Dizziness, No Headache Psych : No Anxiety/Panic, No Depression, No SI/HI/AH/VH, No Social Issues, Heme/Lymph: No Bruising, No Bleeding,No Lymphadenopathy Endocrine : No Polyuria, No Polydipsia, No Temperature Intolerance [facility] Past Medical History Medical History Anxiety Asthma Atrial fibrillation CHF (congestive heart failure) Depression DVT (deep venous thrombosis) Hypertension Morbid obesity Social History Social History Household Members: Family Housing: Apartment Housing Other:: duplex Do you presently have visiting nurse or other home services: No Alcohol intake: current Alcohol intake frequency: 0-2 drinks per day Second Hand Smoke Exposure: No Advance Directives: Yes Advance Directives on File: Yes Advance Directives Date on File: 09/06/20 Patient : No service: No Current occupational status: disabled Physical Exam Vital Signs: Vital Signs: Last Vital Signs Temp 98.4 F 03/14/21 21:05 Pulse 98 03/14/21 22:50 Resp 19 03/14/21 22:50 BP 132/79 03/14/21 22:50 Pulse Ox 98 03/14/21 22:50 Body Mass Index 43.0 Appearance: Alert. Oriented X3. No acute distress. Eyes: Pupils equal, round and reactive to light. ENT: Pharynx normal. No angioedema Neck: Normal inspection. Neck supple. No lymph nodes noted. No crepitus CVS: Normal heart rate and rhythm. Pulses normal. Normal S1 and S2 Respiratory: No respiratory distress. Breath sounds normal. No Wheezing. No rales Abdomen: Soft and nontender. No rigidity. No distention. good BS x4 Skin: Skin warm and dry. Very mild erythema in face in both cheeks from scratching/L jeronimo but no visible rash on face, no rash/hives noted anywhere in her body including face and scalp. Extremities: No lower extremity edema. No lower extremity edema. No Lacerations. No Rash Neuro: Oriented X 3. No motor deficit. No sensory deficit. Moving all extermities. No slurred speech. Course Course Course Narrative: Patient is actively coughing, requesting albuterol. Patient is very well known to the hospital. Patient is known to make herself wheeze and asked for IV ketamine. At this time, patient is coughing , requesting albuterol. However, the patient is not wheezing at all, oxygen saturation is 99% on room air. Patient provided with albuterol for comfort. Patient no longer has itchiness. Patient occasionally coughing, oxygen saturation remains at 98% on room air, on multiple pulmonary/respiratory checks, on auscultation patient was not wheezing Allergic reaction resolved, as mentioned above patient wheezing, occasionally coughing, vitals stable. After the patient left, I was informed by the patient's nurse that upon discharge, the patient and her were upset because I sent to the pharmacy cough syrup that does not contain codeine Discharge Plan Discharge Clinical Impression: Allergic reaction Qualifiers: Encounter type: initial encounter Qualified Code(s): T78.40XA - Allergy, unspecified, initial encounter Patient Disposition: Home, Self-Care Instructions: General Allergic Reaction (ED) Additional Instructions: Please follow-up with your primary care physician tomorrow, discussed with your PCP if you should get the 2nd dose of the COVID-19 immunization. If you have any worsening or new symptoms, please return to the emergency room or call 911 Prescriptions: New Robitussin Cough-Chest Saad DM 10-200 mg capsule 2 tab-cap PO Q4-6H PRN (Reason: cough) Qty: 1 RF: 0 No Action diltiazem HCl 180 mg Capsule,Extended Release 24 Hr 180 mg PO DAILY RF: 0 risperidone 0.25 mg Tablet 0.5 mg PO BEDTIME RF: 0 montelukast 10 mg Tablet 10 mg PO BEDTIME RF: 0 topiramate 50 mg Tablet 50 mg PO BEDTIME RF: 0 fluoxetine 60 mg Tablet 60 mg PO DAILY RF: 0 trazodone 100 mg Tablet 150 mg PO BEDTIME RF: 0 warfarin 5 mg Tablet 12.5 mg PO SUWEFR RF: 0 Hold Instructions: Resume on 02/27/21. Change dose to 10mg and check inr on 02/27/21 if below 3 start coumadin 10mg omeprazole 40 mg Capsule,Delayed Release(Dr/Ec) 40 mg PO BEDTIME RF: 0 warfarin 10 mg tablet 1 tab PO MOTUTHSA RF: 0 Trelegy Ellipta 100-62.5-25 mcg blister with device 1 puff PO DAILY RF: 0 ipratropium-albuterol 0.5 mg-3 mg(2.5 mg base)/3 mL Solution For Nebulization 3 ml INHALATION Q6H PRN (Reason: Wheezing) RF: 0 Robitussin Cough-Chest Saad DM 5-100 mg/5 mL liquid 10 ml PO Q4-8H PRN (Reason: cough) Qty: 118 RF: 0 Interventions: ED Discharge Assessment Last Done: 03/14/21 22:55 Discharge Date/Time: 03/14/21 22:56
[2021-03-14] MEDS: Famotidine 20 MG TABLET PO (21:26)
[2021-03-14] MEDS: predniSONE 20 MG TABLET 60 MG PO (21:26)
[2021-03-14] MEDS: diphenhydrAMINE HCL 25 MG TABLET 50 MG PO (21:26)
--- NOTE | 2021-03-14 21:56 | PC.NURSE ---
Pt rang in requesting RN to bedside. This rn to bedside, pt states I need an inhaler. This RN inspects airway, no visible swelling to airway. Pt without stridor. Lauro WHITE to bedside, assesses pt's lung sounds, discusses plan for neb tx with pt. Respiratory made aware.
[2021-03-14 22:00] VITALS: BP 152/110; PULSE 122; RESP 17; O2SAT 97
[2021-03-14] MEDS: Albuterol Sulfate 90 MCG 8 GM INHALER 2 PUFF INHALE (22:08)
[2021-03-14 22:50] VITALS: BP 132/79; PULSE 98; RESP 19; O2SAT 98
== END 2021-03-14 22:56 | disposition home or self-care (01) ==
PROVIDERS: Emergency Provider Emergency Medicine; PCP Family Medicine
DX: L50.9 Urticaria, unspecified (principal); Z79.899 Other long term (current) drug therapy
CPT/HCPCS: 99284; Q0163

== ENCOUNTER 2021-03-15 09:27 | Emergency (ER) | payer MEDICARE, MEDICAID, SELFPAY ==
[2021-03-15] VITALS (9 sets, daily range): BP systolic 122–147; BP diastolic 62–108; PULSE 111–129; RESP 20–36; TEMP 36.5; O2SAT 9–100; BMI 43.0
--- NOTE | ~2021-03-15 | XR_ITS ---
EXAMINATION: XR CHEST CLINICAL INFORMATION: Cough, shortness of breath, wheezing COMPARISON: Chest radiographs 03/06/2021, 02/24/2021, 02/16/2021 TECHNIQUE: Portable upright AP view of the chest was obtained. FINDINGS: The lungs are clear. There is no hyperinflation, airspace consolidation, groundglass opacity. Tunneled port is again seen with catheter tip overlying right atrium similar to prior studies. The heart is normal in size. The vascularity is normal. The costophrenic sulci are clear. The hilar and mediastinal contours and visualized bony structures are unremarkable. XR/XR chest 1V IMPRESSION: Unremarkable examination.
--- NOTE | 2021-03-15 09:34 | ED_ITS ---
HPI - SOB/Dyspnea General Chief Complaint: General Medical Stated Complaint: difficulty breathing, blood in stool Time Seen by Provider: 03/15/21 09:32 Source: patient Mode of arrival: ambulatory Limitations: no limitations History of Present Illness HPI Narrative: 50 y/o female with history of poorly controlled asthma/COPD, afib, recurrent DVT's on Coumadin, CHF, depression/anxiety, obesity who presents to the ED with SOB, cough, lower abdominal pain and dark stools. She was seen in the ED last night for itchiness in her throat after receiving the COVID-19 vaccination. She was coughing but not wheezing at that time per documentation. She was recently admitted 02/16-02/18, 02/24-02/25, and again 03/06-03/08 for acute asthma exacerbations. She reports last night she did not sleep at all because of her cough and wheezing. She was discharged with a medication that did not work. Cough is dry. She reports being intubated for this cough before. She also has central chest pain that started before the coughing. She reports her face being red, swollen, and itchy since her COVID-19 vaccination yesterday evening. Pertinent past history: COPD, asthma and congestive heart failure Onset (ago): day(s) Context: anxiety and other (recent COVID vaccine) Timing: constant Severity: similar to previous episodes Exacerbating factors: exertion and coughing Relieving factors: rest and bronchodilators Known history of: COPD, asthma, congestive heart failure and DVT Associated symptoms: chest pain, cough, wheezing, palpitations and abdominal pain Treatment prior to arrival: bronchodilator Related Data Home oxygen amount: none Home Medications Medication Instructions Recorded Confirmed diltiazem HCl 180 mg PO DAILY 09/03/20 03/06/21 fluoxetine 60 mg PO DAILY 09/03/20 03/06/21 montelukast 10 mg PO BEDTIME 09/03/20 03/06/21 risperidone 0.5 mg PO BEDTIME 09/03/20 03/06/21 topiramate 50 mg PO BEDTIME 09/03/20 03/06/21 trazodone 150 mg PO BEDTIME 09/03/20 03/06/21 omeprazole 40 mg PO BEDTIME 02/16/21 03/06/21 warfarin 12.5 mg PO SUWEFR 02/16/21 03/06/21 warfarin 1 tab PO MOTUTHSA 03/06/21 03/06/21 Trelegy Ellipta 1 puff PO DAILY 03/08/21 03/08/21 ipratropium-albuterol 3 ml INHALATION Q6H PRN 03/08/21 03/08/21 Previous Rx's Medication Instructions Recorded dextromethorphan-guaifenesin 10 ml PO Q4-8H PRN #118 ml 03/08/21 [Robitussin Cough-Chest Saad DM] dextromethorphan-guaifenesin 2 tab-cap PO Q4-6H PRN #1 cap 03/14/21 [Robitussin Cough-Chest Saad DM] dicyclomine 20 mg PO BID PRN #10 tab 03/15/21 Allergies Allergy/AdvReac Type Severity Reaction Status Date / Time azithromycin Allergy Intermediate ITCHING Verified 03/06/21 20:19 [From ZITHROMAX Z-XANDER] amoxicillin [AMOXICILLIN] Allergy Unknown UNKNOWN, Verified 03/06/21 20:19 hives, swelling budesonide [From SYMBICORT] Allergy Unknown UNKNOWN Verified 03/06/21 20:19 cefpodoxime [From VANTIN] Allergy Unknown UNKNOWN Verified 03/06/21 20:19 cefuroxime [From CEFTIN] Allergy Unknown UNKNOWN Verified 03/06/21 20:19 Cephalosporins Allergy Unknown UNKNOWN Verified 03/06/21 20:19 [CEPHALOSPORINS] ciprofloxacin [From CIPRO] Allergy Unknown UNKNOWN Verified 03/06/21 20:19 diphtheria,pertussis Allergy Unknown Unknown Verified 03/06/21 20:19 (acellular),te [Adacel(Tdap Adolesn/Adult)(PF)] erythromycin base Allergy Unknown UNKNOWN Verified 03/06/21 20:19 [ERYTHROMYCIN BASE] fluticasone [Advair Diskus] Allergy Unknown Unknown Verified 03/06/21 20:19 formoterol [From SYMBICORT] Allergy Unknown UNKNOWN Verified 03/06/21 20:19 hydrocodone [From VICODIN] Allergy Unknown unknown Verified 03/06/21 20:19 Iodinated Contrast Media Allergy Unknown UNKNOWN Verified 03/06/21 20:19 [CONTRAST, IV] levofloxacin [From LEVAQUIN] Allergy Unknown UNKNOWN Verified 03/06/21 20:19 penicillin G Allergy Unknown Unknown Verified 03/06/21 20:19 penicillin V Allergy Unknown Unknown Verified 03/06/21 20:19 Penicillins [PENICILLINS] Allergy Unknown UNKNOWN Verified 03/06/21 20:19 salmeterol [Advair Diskus] Allergy Unknown Unknown Verified 03/06/21 20:19 sertraline [From ZOLOFT] Allergy Unknown SUICIDAL Verified 03/06/21 20:19 Sulfa (Sulfonamide Allergy Unknown hives Verified 03/06/21 20:19 Antibiotics) tetanus and diphtheria Allergy Unknown UNKNOWN Verified 03/06/21 20:19 toxoids [TETANUS & DIPHTHERIA TOXOIDS] Vantin Allergy Unknown Unknown Verified 03/06/21 20:19 ketorolac [From TORADOL] AdvReac Mild ITCHING Verified 03/06/21 20:19 Ceftin Allergy Unknown Unknown Uncoded 03/06/21 20:19 IV dye Allergy Unknown Unknown Uncoded 03/06/21 20:19 Symbicort Allergy Unknown Unknown Uncoded 03/06/21 20:19 Tetanus Allergy Unknown Unknown Uncoded 03/06/21 20:19 Erythromycin Allergy Unknown Uncoded 03/06/21 20:19 Review of Systems Review of Systems: Constitutional: No Fever, No Chills ENT/Mouth: No sore throat, No Rhinorrhea, No Swallowing Difficulty Eyes: No Eye Pain, No Swelling, No Redness Cardiovascular: + Chest Pain, + SOB, No Orthopnea, No Edema Respiratory: + Cough, No Sputum, + Wheezing, + dyspnea Gastrointestinal: No Nausea, No Vomiting, No Diarrhea, +abdominal Pain, No Hematochezia, + Melena Genitourinary: No Dysuria, No Urinary Frequency, No Hematuria Musculoskeletal: No joint pain, No Myalgias Skin: No Skin Lesions, + rash Neuro: No Weakness, No Numbness, No Dizziness, No Headache Psych: + Anxiety/Panic, No Depression Heme/Lymph: No Bruising, No Lymphadenopathy Endocrine: No Polyuria, No Polydipsia PMFSH Past Medical History Attestation statement: The following information was validated with the patient. Medical History Anxiety Asthma Atrial fibrillation CHF (congestive heart failure) Depression DVT (deep venous thrombosis) Hypertension Morbid obesity Social History Social History Household Members: Family Housing: Apartment Housing Other:: duplex Do you presently have visiting nurse or other home services: No Alcohol intake: current Alcohol intake frequency: 0-2 drinks per day Second Hand Smoke Exposure: No Advance Directives: Yes Advance Directives on File: Yes Advance Directives Date on File: 09/06/20 service: No Current occupational status: disabled Physical Exam Vital Signs: Vital Signs: Last Vital Signs Temp 97.7 F 03/15/21 09:29 Pulse 111 H 03/15/21 16:00 Resp 20 03/15/21 16:00 BP 136/78 03/15/21 16:00 Pulse Ox 100 03/15/21 16:00 Body Mass Index 43.0 Appearance: Alert. Oriented X3. Mild respiratory distress w/ persistent cough and increased RR. Head/face: erythemtatous skin of face, neck and chest. no swelling. Eyes: Pupils equal, round and reactive to light. ENT: Pharynx normal. Neck: Normal inspection. Neck supple. CVS: tachycardic, regular rhythm. Pulses normal. Respiratory: Mild respiratory distress. Breath sounds with inspiratory and expiratory wheezes throughout, coarse. No rales. No rhonchi. Speaks in 2-3 word sentences. Dry cough Abdomen: Obese, Soft and non-tender. +BS x4. MACIE with brown stool in rectal vault, normal sphincter tone. no hemorrhoids. Skin: Skin warm and dry. Normal skin color. Normal skin turgor. No rashes. Extremities: No lower extremity edema. Neuro: Oriented X 3. No motor deficit. No sensory deficit. Anxious Course Course Course Narrative: 50 y/o female presenting with SOB, cough, and wheezing since last night along with mild lower abdominal pain and reports of dark stools x3 days. She is on Coumadin and has history of GI bleed. She cannot recall the source. Diffuse wheezing on exam, ?partially from upper airway ?vocal cord dysfunction component. Will treat with IV steroids, hour long neb and Mg++. CXR, EKG and lab workup ordered. She will most likely require admission. Reevaluation(s) Reevaluation #1: Minimal improvement after 1st neb, 2nd neb ordered. Will reassess. Lab workup shows H/H is stable. Occult stool negative. Troponin negative. INR is subtherapeutic, however given her examination with wheezing and cough doubt her symptoms are due to PE. Reevaluation #2: Patient reports feeling slightly improved after the 2nd neb treatment but also like she was tiring out. Agreeable to BiPAP for rest. Will get ABG prior to putting on NIV to make sure she is not retaining CO2. Reevaluation #3: ABG ok, no CO2 retention. Reassessed patient at 2:05 pm - found sleeping comfortably with BiPAP 15/10, RR 16-18. Wheezing resolved on BiPAP. Asked if she wants to come off and she states not yet. She c/o itching of her face - already given steroids and benadryl. Will plan for admission once off BiPAP. Additional Reevaluation(s): Patient agreeable to come off of BiPAP. She remains SOB and wheezing has return, making VCD or tracheomalacia more likely. Called and spoke with Dr. Dow and Dr. Mas who are recommending discharge home with psych follow up, that her tachycardia, wheezing and SOB are anxiety driven. Dr. Mas will come evaluate the patient but anticipates d/c home. Dr. Mas evaluated the patient and is recommending discharge home. Discussed with patient. She is asking for pain medication for her abdominal pain. When offered Bentyl she cursed at staff, left the ER saying she was going to [facility]. MDM - SOB/Dyspnea Differential Diagnosis Differential diagnosis: Likely congestive heart failure, pneumonia, asthma with exacerbation, pleural effusion, sleep apnea and anemia Medical Records Attestation: I reviewed the patient's medical records. Lab Data Attestation: I reviewed the patient's lab results. Result diagrams: 03/15/21 10:30 03/15/21 10:30 Labs: Lab Results 03/15/21 03/15/21 03/15/21 Range/Units 10:30 10:30 10:30 WBC 6.9 (4.8-10.8) X10*3/uL RBC 3.74 L (4.20-5.50) X10*6/uL Hgb 9.5 L (12.0-16.0) g/dl Hct 30.9 L (37-47) % MCV 82.6 (80-98) fL MCH 25.4 L (27.0-33.0) pg MCHC 30.7 L (31.0-35.0) g/dl RDW 17.0 H (11.0-16.0) % Plt Count 284 D (160-400) X10*3/uL MPV 11.3 (9.4-12.3) fL Immature Gran % (Auto) 1.3 H (0.0-0.4) % Neut % (Auto) 75.5 H (45-73) % Lymph % (Auto) 17.6 L (20-40) % [place] % (Auto) 5.6 (2-11) % Eos % (Auto) 0.0 (0-4) % Baso % (Auto) 0.0 (0-2) % Lymph # (Auto) 1.2 (1.2-4.9) X10*3/uL [place] # (Auto) 0.4 (0.1-1.2) X10*3/uL Eos # (Auto) 0.0 (0.0-0.4) X10*3/uL Baso # (Auto) 0.0 (0.0-0.2) X10*3/uL Abs Immat Gran (auto) 0.09 H (0.00-0.03) X10*3/uL Absolute Neuts (auto) 5.2 (2.0-8.3) X10*3/uL Absolute Nucleated RBC 0.000 (0.0-0.012) X10*3/uL Nucleated RBC % (auto) 0.0 (0.0-0.2) /100WBC PT 16.4 H D (10.8-13.0) SEC INR 1.4 H (0.9-1.1) APTT 68.2 H* D (24.1-38.0) SEC Hold Blue Top SEE NOTE O2 Saturation % ABG pH at Pt Temp (7.35-7.45) ABG pH (Temp Correct) (7.35-7.45) ABG pCO2 at Pt Temp (32-45) mmHg ABG pCO2 (Temp Corrct (32-45) mmHg ABG pO2 at Pt Temp (83-108) mmHg ABG pO2 (Temp Correct (83-108) ABG HCO3 (22-26) mmol/L ABG Base Excess (Actual) mmol/L Sodium 140 (135-145) mmol/L Potassium 4.2 (3.3-5.1) mmol/L Chloride 109 H (96-108) mmol/L Carbon Dioxide 20 L (22-29) mmol/L Anion Gap 15 (12-20) BUN 12 (9-16) mg/dL Creatinine 0.85 (0.5-1.4) mg/dL Estim Creat Clear Calc 83.0 Estimated GFR > 60 Random Glucose 142 H D (60-115) mg/dL Calcium 9.5 (8.4-10.2) mg/dL Magnesium 2.2 (1.6-2.6) mg/dL Total Bilirubin 0.3 (0.0-1.0) mg/dL Direct Bilirubin < 0.2 (0.0-0.5) mg/dL AST 13 (5-31) U/L ALT 21 (0-31) U/L Alkaline Phosphatase 95 (39-117) U/L Troponin I High Sens (<3.5-17.0) ng/L B-Natriuretic Peptide (<100) pg/mL Total Protein 6.6 (6.5-8.0) g/dL Albumin 4.3 (3.5-5.0) g/dL Procalcitonin ng/mL Stool Occult Blood (NEGATIVE) 03/15/21 03/15/21 03/15/21 Range/Units 10:30 10:30 10:30 WBC (4.8-10.8) X10*3/uL RBC (4.20-5.50) X10*6/uL Hgb (12.0-16.0) g/dl Hct (37-47) % MCV (80-98) fL MCH (27.0-33.0) pg MCHC (31.0-35.0) g/dl RDW (11.0-16.0) % Plt Count (160-400) X10*3/uL MPV (9.4-12.3) fL Immature Gran % (Auto) (0.0-0.4) % Neut % (Auto) (45-73) % Lymph % (Auto) (20-40) % [place] % (Auto) (2-11) % Eos % (Auto) (0-4) % Baso % (Auto) (0-2) % Lymph # (Auto) (1.2-4.9) X10*3/uL [place] # (Auto) (0.1-1.2) X10*3/uL Eos # (Auto) (0.0-0.4) X10*3/uL Baso # (Auto) (0.0-0.2) X10*3/uL Abs Immat Gran (auto) (0.00-0.03) X10*3/uL Absolute Neuts (auto) (2.0-8.3) X10*3/uL Absolute Nucleated RBC (0.0-0.012) X10*3/uL Nucleated RBC % (auto) (0.0-0.2) /100WBC PT (10.8-13.0) SEC INR (0.9-1.1) APTT (24.1-38.0) SEC Hold Blue Top O2 Saturation % ABG pH at Pt Temp (7.35-7.45) ABG pH (Temp Correct) (7.35-7.45) ABG pCO2 at Pt Temp (32-45) mmHg ABG pCO2 (Temp Corrct (32-45) mmHg ABG pO2 at Pt Temp (83-108) mmHg ABG pO2 (Temp Correct (83-108) ABG HCO3 (22-26) mmol/L ABG Base Excess (Actual) mmol/L Sodium (135-145) mmol/L Potassium (3.3-5.1) mmol/L Chloride (96-108) mmol/L Carbon Dioxide (22-29) mmol/L Anion Gap (12-20) BUN (9-16) mg/dL Creatinine (0.5-1.4) mg/dL Estim Creat Clear Calc Estimated GFR Random Glucose (60-115) mg/dL Calcium (8.4-10.2) mg/dL Magnesium (1.6-2.6) mg/dL Total Bilirubin (0.0-1.0) mg/dL Direct Bilirubin (0.0-0.5) mg/dL AST (5-31) U/L ALT (0-31) U/L Alkaline Phosphatase (39-117) U/L Troponin I High Sens < 3.5 (<3.5-17.0) ng/L B-Natriuretic Peptide 27 (<100) pg/mL Total Protein (6.5-8.0) g/dL Albumin (3.5-5.0) g/dL Procalcitonin 0.29 ng/mL Stool Occult Blood (NEGATIVE) 03/15/21 03/15/21 Range/Units 12:21 12:51 WBC (4.8-10.8) X10*3/uL RBC (4.20-5.50) X10*6/uL Hgb (12.0-16.0) g/dl Hct (37-47) % MCV (80-98) fL MCH (27.0-33.0) pg MCHC (31.0-35.0) g/dl RDW (11.0-16.0) % Plt Count (160-400) X10*3/uL MPV (9.4-12.3) fL Immature Gran % (Auto) (0.0-0.4) % Neut % (Auto) (45-73) % Lymph % (Auto) (20-40) % [place] % (Auto) (2-11) % Eos % (Auto) (0-4) % Baso % (Auto) (0-2) % Lymph # (Auto) (1.2-4.9) X10*3/uL [place] # (Auto) (0.1-1.2) X10*3/uL Eos # (Auto) (0.0-0.4) X10*3/uL Baso # (Auto) (0.0-0.2) X10*3/uL Abs Immat Gran (auto) (0.00-0.03) X10*3/uL Absolute Neuts (auto) (2.0-8.3) X10*3/uL Absolute Nucleated RBC (0.0-0.012) X10*3/uL Nucleated RBC % (auto) (0.0-0.2) /100WBC PT (10.8-13.0) SEC INR (0.9-1.1) APTT (24.1-38.0) SEC Hold Blue Top O2 Saturation 98.0 % ABG pH at Pt Temp 7.45 (7.35-7.45) ABG pH (Temp Correct) 7.46 H (7.35-7.45) ABG pCO2 at Pt Temp 24 L (32-45) mmHg ABG pCO2 (Temp Corrct 23 L (32-45) mmHg ABG pO2 at Pt Temp 138 H (83-108) mmHg ABG pO2 (Temp Correct 135 H (83-108) ABG HCO3 17 L (22-26) mmol/L ABG Base Excess (Actual) -5.2 mmol/L Sodium (135-145) mmol/L Potassium (3.3-5.1) mmol/L Chloride (96-108) mmol/L Carbon Dioxide (22-29) mmol/L Anion Gap (12-20) BUN (9-16) mg/dL Creatinine (0.5-1.4) mg/dL Estim Creat Clear Calc Estimated GFR Random Glucose (60-115) mg/dL Calcium (8.4-10.2) mg/dL Magnesium (1.6-2.6) mg/dL Total Bilirubin (0.0-1.0) mg/dL Direct Bilirubin (0.0-0.5) mg/dL AST (5-31) U/L ALT (0-31) U/L Alkaline Phosphatase (39-117) U/L Troponin I High Sens (<3.5-17.0) ng/L B-Natriuretic Peptide (<100) pg/mL Total Protein (6.5-8.0) g/dL Albumin (3.5-5.0) g/dL Procalcitonin ng/mL Stool Occult Blood NEGATIVE (NEGATIVE) ABG Data ABG results: 7.46/24/138 Attestation: I personally reviewed and interpreted this ABG as follows: Interpretation: mild acute respiratory alkalosis ECG Data Attestation: I personally reviewed and interpreted this ECG as follows: ECG interpretation date: 03/15/21 ECG interpretation time: 13:13 Interpretation: sinus tachycardia, HR 119 bpm, artifact present, prolonged QTc, normal FL interval Critical Care Time Critical Care Time Critical Care Time: Yes Total Critical Care Time: 42 Attestation: I attest to critical care time spent with this patient. Discharge Plan Discharge Clinical Impression: Anxiety Patient Disposition: Home, Self-Care Instructions: Anxiety (ED) Additional Instructions: Your lab workup today was normal. Your chest x-ray was negative. Your stool did NOT have any blood in it. Your blood counts were normal. Continue taking Coumadin. Your INR was low 1.4 - follow up with your doctor for dosing recommendations. Your wheezing and shortness of breath is likely anxiety related. Recommend following up with Psychiatry. Recommend following up with Pulmonology for formal Pulmonary Function Testing. Recommend Benadryl 50 mg every 6 hours as needed for itching. Recommend trial of dicyclomine as needed for abdominal pain. Can also try Pepto Bismol. Follow up with your doctor on Friday. If you have any worsening symptoms come back to the ER for further evaluation. Prescriptions: New dicyclomine 20 mg tablet 20 mg PO BID PRN (Reason: abdominal pain) Qty: 10 RF: 0 No Action Robitussin Cough-Chest Saad DM 10-200 mg capsule 2 tab-cap PO Q4-6H PRN (Reason: cough) Qty: 1 RF: 0 diltiazem HCl 180 mg Capsule,Extended Release 24 Hr 180 mg PO DAILY RF: 0 risperidone 0.25 mg Tablet 0.5 mg PO BEDTIME RF: 0 montelukast 10 mg Tablet 10 mg PO BEDTIME RF: 0 topiramate 50 mg Tablet 50 mg PO BEDTIME RF: 0 fluoxetine 60 mg Tablet 60 mg PO DAILY RF: 0 trazodone 100 mg Tablet 150 mg PO BEDTIME RF: 0 warfarin 5 mg Tablet 12.5 mg PO SUWEFR RF: 0 Hold Instructions: Resume on 02/27/21. Change dose to 10mg and check inr on 02/27/21 if below 3 start coumadin 10mg omeprazole 40 mg Capsule,Delayed Release(Dr/Ec) 40 mg PO BEDTIME RF: 0 warfarin 10 mg tablet 1 tab PO MOTUTHSA RF: 0 Trelegy Ellipta 100-62.5-25 mcg blister with device 1 puff PO DAILY RF: 0 ipratropium-albuterol 0.5 mg-3 mg(2.5 mg base)/3 mL Solution For Nebulization 3 ml INHALATION Q6H PRN (Reason: Wheezing) RF: 0 Robitussin Cough-Chest Saad DM 5-100 mg/5 mL liquid 10 ml PO Q4-8H PRN (Reason: cough) Qty: 118 RF: 0 Referrals: Frederick Whitney MD [Physician] - 2 days (anxiety) Destin Esteban MD [Physician] - 2 days (?Asthma) Interventions: ED Discharge Assessment Last Done: 03/15/21 16:37
--- NOTE | 2021-03-15 09:54 | ECG_ITS ---
Test Reason : DYSPNEA Blood Pressure : / mmHG Vent. Rate : 119 BPM Atrial Rate : 119 BPM P-R Int : 144 ms QRS Dur : 072 ms QT Int : 344 ms P-R-T Axes : 048 -23 043 degrees QTc Int : 483 ms Artifact in tracing Sinus tachycardia Low voltage QRS Inferior infarct (cited on or before 03-MAY-2019) Possible Anterolateral infarct (cited on or before 03-MAY-2019) Abnormal ECG When compared with ECG of 24-FEB-2021 20:54, No significant change was found Referred By: Linda Francois Electronically Signed By:AUTUMN BALLARD
[2021-03-15] MEDS: Albuterol Sulfate (0.083%) 2.5 MG/3 ML VIAL.NEB 10 MG INHALE ×2 (09:57→11:15)
[2021-03-15 10:35] LABS: MANUAL DIFF FLAG NO
[2021-03-15] MEDS: methylPREDNISolone Sod Succ 125 MG/2 ML VIAL IVPUSH (10:37)
[2021-03-15] MEDS: diphenhydrAMINE HCL 50 MG/ML VIAL IVPUSH (10:37)
[2021-03-15 10:39] LABS: Hematocrit 30.9 % (37-47); Hemoglobin 9.5 g/dl (12.0-16.0); Imm Gran Abs Auto 0.09 X10*3/uL (0.00-0.03); Imm Gran Pct Auto 1.3 % (0.0-0.4); Lymphocytes Absolute Auto 1.2 X10*3/uL (1.2-4.9); Lymphocytes Percent Auto 17.6 % (20-40); Mean Corpuscular HGB Conc 30.7 g/dl (31.0-35.0); Mean Corpuscular Hemoglobin 25.4 pg (27.0-33.0); Mean Corpuscular Volume 82.6 fL (80-98); Mean Platelet Volume 11.3 fL (9.4-12.3); Monocytes Absolute Auto 0.4 X10*3/uL (0.1-1.2); Monocytes Percent Auto 5.6 % (2-11); Neutrophils Absolute Auto 5.2 X10*3/uL (2.0-8.3); Neutrophils Percent Auto 75.5 % (45-73); Platelet Count 284 X10*3/uL (160-400); Red Blood Count 3.74 X10*6/uL (4.20-5.50); White Blood Count 6.9 X10*3/uL (4.8-10.8)
[2021-03-15 10:41] LABS: INTERNATIONAL NORM RATIO 1.4 (0.9-1.1); Prothrombin Time 16.4 SEC (10.8-13.0)
[2021-03-15] MEDS: Magnesium Sulfate/H2O 2 GM/50 ML PIGGYBACK IV (10:42)
[2021-03-15 10:55] LABS: Partial Thromboplastin Time 68.2 SEC (24.1-38.0)
[2021-03-15 11:09] LABS: B Type Natriuretic Peptide 27 pg/mL (<100)
[2021-03-15 11:10] LABS: Troponin-I High Sensitivity < 3.5 ng/L (<3.5-17.0)
[2021-03-15 11:20] LABS: Alanine Aminotransferase 21 U/L (0-31); Albumin Level 4.3 g/dL (3.5-5.0); Alkaline Phosphatase 95 U/L (39-117); Anion Gap 15 (12-20); Aspartate Amino Transferase 13 U/L (5-31); Bilirubin Direct < 0.2 mg/dL (0.0-0.5); Bilirubin Total 0.3 mg/dL (0.0-1.0); Blood Urea Nitrogen 12 mg/dL (9-16); Calcium 9.5 mg/dL (8.4-10.2); Carbon Dioxide 20 mmol/L (22-29); Chloride 109 mmol/L (96-108); Estimated Glomerular Filt Rate > 60; Glucose Random 142 mg/dL (60-115); Magnesium 2.2 mg/dL (1.6-2.6); Potassium 4.2 mmol/L (3.3-5.1); Sodium 140 mmol/L (135-145); Total Protein 6.6 g/dL (6.5-8.0)
[2021-03-15 12:25] LABS: OBS1 NEGATIVE (NEGATIVE)
[2021-03-15 12:26] LABS: OBS Int Ctl Valid YES
[2021-03-15 12:57] LABS: ABG Base Excess -5.2 mmol/L; ABG HCO3 17 mmol/L (22-26); ABG pCO2 24 mmHg (32-45); ABG pCO2 TC 23 mmHg (32-45); ABG pH 7.45 (7.35-7.45); ABG pH TC 7.46 (7.35-7.45); ABG pO2 138 mmHg (83-108); ABG pO2 TC 135 (83-108)
[2021-03-15 12:59] LABS: ABG Refer to POC result
[2021-03-15 13:38] LABS: Procalcitonin 0.29 ng/mL
--- NOTE | 2021-03-15 15:41 | PC.NURSE ---
md grady at bedside to eval.
--- NOTE | 2021-03-15 15:51 | P.EN_ITS ---
Event Note Date of Service: 03/15/21 Event Note: Evaluated patient in the emergency room at request of ER MARISOL 50-year-old female with recurrent hospitalization to [facility] due to asthma exacerbation presented today due to shortness of breath receive mode on a short last evening after that notice redness and swelling of face and neck and itching complaining of abdominal pain asking for pain medication and allergy medication On examination resting comfortably eating sandwich talking in full sentences Lungs no wheeze or rhonchi, coarse breath sounds Abdomen obese soft nontender Extremities no edema Face mild hyperemia, neck with no redness no swelling, tongue midline ABGs unremarkable Chest x-ray no infiltrate CBC baseline blood sugar 142 normal sodium and potassium CO2 20 Chronic asthma with multiple hospitalization no acute exacerbation patient seems to be at baseline anxious Patient does not require admission at present with stable oxygenation no respiratory distress clear lungs and normal ABG recommended patient to continue home inhalers as before. Patient can be discharged home with home inhalers.
--- NOTE | 2021-03-15 16:01 | PC.NURSE ---
cleared by [facility] for d/c home. per siddhartha amaya, medicate with bentyl and benadryl
--- NOTE | 2021-03-15 16:35 | PC.NURSE ---
Per patient fuck your benytal. I am going to go to [facility]. I'm not going sign your discharge paperwork because you refereed me to junior, i already have psychiatrist. Pt ambualted to exit with steady gait. skin p/w/d. airway patent.
== END 2021-03-15 16:37 | disposition home or self-care (01) ==
PROVIDERS: Physician Assistant; Emergency Provider Emergency Medicine; PCP Family Medicine
DX: F41.1 Generalized anxiety disorder (principal); F43.0 Acute stress reaction; R06.02 Shortness of breath; J44.9 Chronic obstructive pulmonary disease, unspecified; I48.91 Unspecified atrial fibrillation; Z79.01 Long term (current) use of anticoagulants; Z79.899 Other long term (current) drug therapy; Z20.822 Contact with and (suspected) exposure to COVID-19
CPT/HCPCS: 36415; 71045; 80048; 80076; 82272; 83735; 83880; 84145; 84484; 85025; 85610; 85730; 93005; 94640; 94644; 94645; 94660; 96365; 96375; 99284; 99291; J1200; J2930; J3475

== ENCOUNTER 2021-04-01 11:36 | Emergency (ER) | payer MEDICARE, MEDICAID, SELFPAY ==
[2021-04-01 11:43] VITALS: BP 125/93; PULSE 120; RESP 20; TEMP 36.6; O2SAT 97; BMI 42.7
--- NOTE | 2021-04-01 12:38 | ED.GENADULT ---
HPI - General Adult General Chief complaint: General Medical Stated complaint: throat swollen Time Seen by Provider: 04/01/21 12:06 Source: patient and family Mode of arrival: ambulatory Limitations: no limitations History of Present Illness HPI narrative: 50 y/o female with history of poorly controlled asthma/COPD, afib, recurrent DVT's on Coumadin, CHF, depression/anxiety, obesity here with complaints of sore throat with waking and now feeling like she is having difficulty swallowing. She feels like it is difficult to swallow liquids. She is tolerating her secretions. She denies any new ingestion or new medications. She denies any itching, rash, facial swelling, vomiting, diarrhea. She does have mild shortness of breath but tells me that this is secondary to her asthma. Chronic cough but does not feel like this change from baseline. No chest pain. No weakness. Related Data Home Medications Medication Instructions Recorded Confirmed diltiazem HCl 180 mg PO DAILY 09/03/20 03/06/21 fluoxetine 60 mg PO DAILY 09/03/20 03/06/21 montelukast 10 mg PO BEDTIME 09/03/20 03/06/21 risperidone 0.5 mg PO BEDTIME 09/03/20 03/06/21 topiramate 50 mg PO BEDTIME 09/03/20 03/06/21 trazodone 150 mg PO BEDTIME 09/03/20 03/06/21 omeprazole 40 mg PO BEDTIME 02/16/21 03/06/21 warfarin 12.5 mg PO SUWEFR 02/16/21 03/06/21 warfarin 1 tab PO MOTUTHSA 03/06/21 03/06/21 Trelegy Ellipta 1 puff PO DAILY 03/08/21 03/08/21 ipratropium-albuterol 3 ml INHALATION Q6H PRN 03/08/21 03/08/21 Previous Rx's Medication Instructions Recorded dextromethorphan-guaifenesin 10 ml PO Q4-8H PRN #118 ml 03/08/21 [Robitussin Cough-Chest Saad DM] dextromethorphan-guaifenesin 2 tab-cap PO Q4-6H PRN #1 cap 03/14/21 [Robitussin Cough-Chest Saad DM] dicyclomine 20 mg PO BID PRN #10 tab 05/27/21 prednisone 40 mg PO DAILY #8 tab 04/01/21 Allergies Allergy/AdvReac Type Severity Reaction Status Date / Time azithromycin Allergy Intermediate ITCHING Verified 03/06/21 20:19 [From ZITHROMAX Z-XANDER] amoxicillin [AMOXICILLIN] Allergy Unknown UNKNOWN, Verified 03/06/21 20:19 hives, swelling budesonide [From SYMBICORT] Allergy Unknown UNKNOWN Verified 03/06/21 20:19 cefpodoxime [From VANTIN] Allergy Unknown UNKNOWN Verified 03/06/21 20:19 cefuroxime [From CEFTIN] Allergy Unknown UNKNOWN Verified 03/06/21 20:19 Cephalosporins Allergy Unknown UNKNOWN Verified 03/06/21 20:19 [CEPHALOSPORINS] ciprofloxacin [From CIPRO] Allergy Unknown UNKNOWN Verified 03/06/21 20:19 diphtheria,pertussis Allergy Unknown Unknown Verified 03/06/21 20:19 (acellular),te [Adacel(Tdap Adolesn/Adult)(PF)] erythromycin base Allergy Unknown UNKNOWN Verified 03/06/21 20:19 [ERYTHROMYCIN BASE] fluticasone [Advair Diskus] Allergy Unknown Unknown Verified 03/06/21 20:19 formoterol [From SYMBICORT] Allergy Unknown UNKNOWN Verified 03/06/21 20:19 hydrocodone [From VICODIN] Allergy Unknown unknown Verified 03/06/21 20:19 Iodinated Contrast Media Allergy Unknown UNKNOWN Verified 03/06/21 20:19 [CONTRAST, IV] levofloxacin [From LEVAQUIN] Allergy Unknown UNKNOWN Verified 03/06/21 20:19 penicillin G Allergy Unknown Unknown Verified 03/06/21 20:19 penicillin V Allergy Unknown Unknown Verified 03/06/21 20:19 Penicillins [PENICILLINS] Allergy Unknown UNKNOWN Verified 03/06/21 20:19 salmeterol [Advair Diskus] Allergy Unknown Unknown Verified 03/06/21 20:19 sertraline [From ZOLOFT] Allergy Unknown SUICIDAL Verified 03/06/21 20:19 Sulfa (Sulfonamide Allergy Unknown hives Verified 03/06/21 20:19 Antibiotics) tetanus and diphtheria Allergy Unknown UNKNOWN Verified 03/06/21 20:19 toxoids [TETANUS & DIPHTHERIA TOXOIDS] Vantin Allergy Unknown Unknown Verified 03/06/21 20:19 ketorolac [From TORADOL] AdvReac Mild ITCHING Verified 03/06/21 20:19 Ceftin Allergy Unknown Unknown Uncoded 03/06/21 20:19 IV dye Allergy Unknown Unknown Uncoded 03/06/21 20:19 Symbicort Allergy Unknown Unknown Uncoded 03/06/21 20:19 Tetanus Allergy Unknown Unknown Uncoded 03/06/21 20:19 Erythromycin Allergy Unknown Uncoded 03/06/21 20:19 Review of Systems Review of Systems: Yes all other systems are reviewed and are negative Constitutional: Constitutional: Reports no additional constitutional complaints, Denies body ache(s), Denies chills, Denies fever(s), Denies headache(s) and Denies weakness Eyes: Eyes: Reports no additional eye complaints and Denies change in vision ENT: Reports system reviewed and no additional complaints, except as documented, Denies dizziness, Denies headache(s), Denies nasal congestion, Denies nasal discharge, Denies neck pain, Reports sore throat and Reports throat swelling Cardiovascular: Cardiovascular: Reports no additional cardiovascular complaints, Denies chest pain, Denies leg edema and Reports dyspnea (Chronic) Respiratory: Respiratory: Reports no additional respiratory complaints, Reports cough (Chronic) and Reports dyspnea (Chronic) Gastrointestinal: Gastrointestinal: Reports no additional gastrointestinal complaints, Denies abdominal pain, Denies diarrhea, Denies nausea and Denies vomiting Genitourinary: Genitourinary: Reports no additional female genitourinary complaints and Denies urinary incontinence Musculoskeletal: Musculoskeletal: Reports no additional musculoskeletal complaints, Denies back pain, Denies arthralgias, Denies joint swelling, Denies neck pain, Denies numbness and Denies tingling Integumentary/Breasts: Skin/Breast: Reports system reviewed and no additional complaints, except as docu and Denies rash Neurologic: Reports system reviewed and no additional complaints, except as documented, Denies Abnormal speech present, Denies dizziness, Denies headache(s), Denies numbness, Denies tingling and Denies weakness Allergic/Immunologic: Allergic/Immunologic: Reports throat swelling PMFSH Past Medical History Attestation statement: The following information was validated with the patient. Source: old records reviewed and nursing notes reviewed Medical History Anxiety Asthma Atrial fibrillation CHF (congestive heart failure) Depression DVT (deep venous thrombosis) Hypertension Morbid obesity Social History Social History Household Members: Family Housing: Apartment Housing Other:: duplex Do you presently have visiting nurse or other home services: No Alcohol intake: current Alcohol intake frequency: 0-2 drinks per day Second Hand Smoke Exposure: No Advance Directives: Yes Advance Directives on File: Yes Advance Directives Date on File: 09/06/20 Patient : No service: No Current occupational status: disabled Physical Exam Vital Signs: Vital Signs: Last Vital Signs Temp 98.5 F 04/01/21 13:48 Pulse 113 H 04/01/21 13:48 Resp 18 04/01/21 13:48 BP 144/81 H 04/01/21 13:48 Pulse Ox 95 04/01/21 13:48 Body Mass Index 42.7 Const: General: cooperative, healthy appearing, comfortable and no acute distress Orientation/consciousness: patient oriented x3 Limitations: no limitations HENMT: Other: s/p tonsillectomy No angioedema or swelling Patient tolerating her secretions with no drooling Head: Yes normal to inspection Ears: hearing grossly normal bilaterally and TM's normal bilaterally General nose exam: Normal external nose present Face and sinus: Yes normal facial exam Mouth: Normal oral and palatal mucosa present Throat: Yes posterior oropharynx normal, Yes uvula midline, No peritonsillar mass and Yes posterior oropharynx abnormal Eyes: General: appearance normal, both eyes and all related structures Pupils: Equal, round and reactive pupils present Neck: Other: No swelling, crepitus or angioedema noted. No stridor Neck: Yes normal visual inspection, Yes full ROM, Yes no lymphadenopathy, Yes no meningeal signs, Yes trachea midline, Yes supple, No anterior neck swelling and No bilateral parotid enlargement Chest: Chest palpation & inspection: normal inspection of the chest Resp: Other: Mild expiratory wheezing throughout Effort & Inspection: normal respiratory effort Cardio: Rate: regular rate Rhythm: regular rhythm Peripheral pulses: Peripheral pulses 2+ throughout GI: Inspection: Yes normal to inspection Palpation (GI): Soft to palpation and nontender Auscultation: normal bowel sounds Back/Spine/Pelvis: Thoracic/Lumbar Spine: thoracic and lumbar spine normal to inspection Skin: General skin exam: no rashes or lesions noted Neuro: General: patient oriented x3, no meningeal signs, no focal motor deficits and normal sensation to monofilament Cranial nerves: Yes CN's II-XII intact bilaterally, Yes Equal, round and reactive pupils present, Yes Bilaterally intact EOM present, Yes Nystagmus not present, Yes Normal facial strength present and Yes Midline tongue present Cognition (Neuro): normal cognition Speech: No Abnormal speech present Gait exam (Neuro): Normal gait present Motor exam (neuro): 5/5 motor strength present throughout Sensory Exam: Normal double simultaneous stimulation for sensation Extrem: General: Yes normal to inspection, Yes no pedal edema and Yes no calf tenderness Course Course Course Narrative: 50 yo female here with complaints of waking with sore throat and now feels like her throat is swollen and she is having difficulty swallowing. No new ingestion. No new medications. No rash, itching, facial swelling or redness, vomiting or diarrhea. Patient does have chronic cough and shortness of breath with wheezing secondary to asthma does not feel like this is changed from baseline. On exam she is sitting upright, calm, speaking full sentences. Mild hoarse voice but from knowing the patient this is unchanged from baseline. ?VCD from previous intubation history. Her uvula is midline with no swelling. There is no angioedema, crepitus, stridor in the upper airway noted. Patient is tolerating her secretions with no drooling. Mild exp wheezing on exam with stable saturations. +anxiety. Will give patient solumedrol as reportable unable to tolerate decadron, benadryl, topical lidocaine, duoneb. Check basic labs and re-assess. 1430-mild improvement in symptoms. Re-evaluated the patient and she was able to tolerate the Maalox and lidocaine with no difficulty. Again she is tolerating her secretions with no drooling or upper airway stridor. Her lungs are clear. She looks very well. Reviewed findings with the patient. Will send her home with a short course of prednisone. Reviewed worrisome signs and symptoms and when to return to the emergency department. Comfortable discharge home. Medical Decision Making MDM Narrative Medical decision making narrative: No reports of ingestion and no other signs on exam concerning for anaphylaxis so this is less likely. No evidence of [employer], absent tonsils on exam with no posterior pharynx exudate or swelling and the uvula appears normal so less likely uveitis, peritonsillar abscess, pharyngitis Less likely MG with more sudden onset and no neurological deficits or recent illneses Medical Records Medical records reviewed: Yes I reviewed the patient's medical records. Lab Data Lab results reviewed: Yes I reviewed the patient's lab results. Result diagrams: 04/01/21 13:31 04/01/21 13:31 Labs: Lab Results 04/01/21 04/01/21 Range/Units 13:31 13:31 WBC 8.1 (4.8-10.8) X10*3/uL RBC 3.78 L (4.20-5.50) X10*6/uL Hgb 9.7 L (12.0-16.0) g/dl Hct 30.0 L (37-47) % MCV 79.4 L (80-98) fL MCH 25.7 L (27.0-33.0) pg MCHC 32.3 (31.0-35.0) g/dl RDW 16.7 H (11.0-16.0) % Plt Count 253 (160-400) X10*3/uL MPV 11.0 (9.4-12.3) fL Immature Gran % (Auto) 1.2 H (0.0-0.4) % Neut % (Auto) 70.6 (45-73) % Lymph % (Auto) 18.6 L (20-40) % Pettis % (Auto) 8.4 (2-11) % Eos % (Auto) 1.1 (0-4) % Baso % (Auto) 0.1 (0-2) % Lymph # (Auto) 1.5 (1.2-4.9) X10*3/uL Pettis # (Auto) 0.7 (0.1-1.2) X10*3/uL Eos # (Auto) 0.1 (0.0-0.4) X10*3/uL Baso # (Auto) 0.0 (0.0-0.2) X10*3/uL Abs Immat Gran (auto) 0.10 H (0.00-0.03) X10*3/uL Absolute Neuts (auto) 5.7 (2.0-8.3) X10*3/uL Absolute Nucleated RBC 0.000 (0.0-0.012) X10*3/uL Nucleated RBC % (auto) 0.0 (0.0-0.2) /100WBC Sodium 141 (135-145) mmol/L Potassium 3.7 (3.3-5.1) mmol/L Chloride 106 (96-108) mmol/L Carbon Dioxide 25 (22-29) mmol/L Anion Gap 14 (12-20) BUN 6 L (9-16) mg/dL Creatinine 0.71 (0.5-1.4) mg/dL Estim Creat Clear Calc 99.2 Estimated GFR > 60 Random Glucose 132 H (60-115) mg/dL Calcium 8.9 D (8.4-10.2) mg/dL Discharge Plan Discharge Clinical Impression: Acute sore throat Patient Disposition: Home, Self-Care Instructions: Pharyngitis (ED) Additional Instructions: Your exam is re-assuring with no swelling noted We gave you some solumedrol and benadryl and will give your short course of steroids for discomfort Increase fluids, try popicles/freeze pops and colder object which are not difficult to tolerate Prescriptions: New prednisone 20 mg tablet 40 mg PO DAILY Qty: 8 RF: 0 No Action Robitussin Cough-Chest Saad DM 10-200 mg capsule 2 tab-cap PO Q4-6H PRN (Reason: cough) Qty: 1 RF: 0 diltiazem HCl 180 mg Capsule,Extended Release 24 Hr 180 mg PO DAILY RF: 0 risperidone 0.25 mg Tablet 0.5 mg PO BEDTIME RF: 0 montelukast 10 mg Tablet 10 mg PO BEDTIME RF: 0 topiramate 50 mg Tablet 50 mg PO BEDTIME RF: 0 fluoxetine 60 mg Tablet 60 mg PO DAILY RF: 0 trazodone 100 mg Tablet 150 mg PO BEDTIME RF: 0 warfarin 5 mg Tablet 12.5 mg PO SUWEFR RF: 0 Hold Instructions: Resume on 02/27/21. Change dose to 10mg and check inr on 02/27/21 if below 3 start coumadin 10mg omeprazole 40 mg Capsule,Delayed Release(Dr/Ec) 40 mg PO BEDTIME RF: 0 warfarin 10 mg tablet 1 tab PO MOTUTHSA RF: 0 Trelegy Ellipta 100-62.5-25 mcg blister with device 1 puff PO DAILY RF: 0 ipratropium-albuterol 0.5 mg-3 mg(2.5 mg base)/3 mL Solution For Nebulization 3 ml INHALATION Q6H PRN (Reason: Wheezing) RF: 0 Robitussin Cough-Chest Saad DM 5-100 mg/5 mL liquid 10 ml PO Q4-8H PRN (Reason: cough) Qty: 118 RF: 0 dicyclomine 20 mg tablet 20 mg PO BID PRN (Reason: abdominal pain) Qty: 10 RF: 0 Referrals: Physician,Unknown [Primary Care Provider] - 2 days Interventions: ED Discharge Assessment Last Done: 04/01/21 14:58 Discharge Date/Time: 04/01/21 15:00
[2021-04-01] MEDS: Albuterol/Iprat 2.5/0.5MG 3 ML AMPUL.NEB INHALE (12:48)
[2021-04-01 12:51] VITALS: PULSE 104; O2SAT 96
[2021-04-01 13:35] LABS: MANUAL DIFF FLAG NO
[2021-04-01 13:36] LABS: Basophils Percent Auto 0.1 % (0-2); Eosinophils Absolute Auto 0.1 X10*3/uL (0.0-0.4); Eosinophils Percent Auto 1.1 % (0-4); Hemoglobin 9.7 g/dl (12.0-16.0); Imm Gran Pct Auto 1.2 % (0.0-0.4); Lymphocytes Absolute Auto 1.5 X10*3/uL (1.2-4.9); Lymphocytes Percent Auto 18.6 % (20-40); Mean Corpuscular HGB Conc 32.3 g/dl (31.0-35.0); Mean Corpuscular Hemoglobin 25.7 pg (27.0-33.0); Mean Corpuscular Volume 79.4 fL (80-98); Monocytes Absolute Auto 0.7 X10*3/uL (0.1-1.2); Monocytes Percent Auto 8.4 % (2-11); Neutrophils Absolute Auto 5.7 X10*3/uL (2.0-8.3); Neutrophils Percent Auto 70.6 % (45-73); Platelet Count 253 X10*3/uL (160-400); Red Blood Count 3.78 X10*6/uL (4.20-5.50); Red Cell Distribution Width 16.7 % (11.0-16.0); White Blood Count 8.1 X10*3/uL (4.8-10.8)
[2021-04-01] MEDS: Lidocaine HCl Viscous 2 % 15 ML SOLUTION MUCOUS MEM (13:44)
[2021-04-01] MEDS: 0.9 % Sodium Chloride 1,000 ML 999 ML IV (13:44)
[2021-04-01] MEDS: diphenhydrAMINE HCL 50 MG/ML VIAL IVPUSH (13:44)
[2021-04-01] MEDS: Magnesium Hydrox/Alum Hydrox 30 ML ORAL.SUSP 15 ML PO (13:44)
[2021-04-01] MEDS: methylPREDNISolone Sod Succ 125 MG/2 ML VIAL IVPUSH (13:44)
[2021-04-01 13:48] VITALS: BP 144/81; PULSE 113; RESP 18; TEMP 36.9; O2SAT 95
[2021-04-01 14:24] LABS: Anion Gap 14 (12-20); Blood Urea Nitrogen 6 mg/dL (9-16); Calcium 8.9 mg/dL (8.4-10.2); Carbon Dioxide 25 mmol/L (22-29); Chloride 106 mmol/L (96-108); Creatinine Clr Calc Pharmacy 99.2; Estimated Glomerular Filt Rate > 60; Glucose Random 132 mg/dL (60-115); Potassium 3.7 mmol/L (3.3-5.1); Sodium 141 mmol/L (135-145)
== END 2021-04-01 15:00 | disposition home or self-care (01) ==
PROVIDERS: Nurse Practitioner Family; Emergency Provider Emergency Medicine Emergency Medical Services
DX: J02.9 Acute pharyngitis, unspecified (principal); J44.9 Chronic obstructive pulmonary disease, unspecified; I48.91 Unspecified atrial fibrillation; I11.0 Hypertensive heart disease with heart failure; I50.9 Heart failure, unspecified; Z86.718 Personal history of other venous thrombosis and embolism; Z79.01 Long term (current) use of anticoagulants; Z79.899 Other long term (current) drug therapy
CPT/HCPCS: 36415; 80048; 85025; 94640; 96361; 96374; 96375; 99283; 99284; J1200; J2930

== ENCOUNTER 2021-04-25 12:54 | Emergency (ER) | payer MEDICARE, MEDICAID, SELFPAY ==
--- NOTE | ~2021-04-25 | XR_ITS ---
EXAMINATION: XR CHEST CLINICAL INFORMATION: Shortness of breath, pneumonia. COMPARISON: Chest radiographs 03/15/2021, 03/06/2021, 02/24/2021 TECHNIQUE: Frontal view of the chest was obtained. FINDINGS: There is a left tunneled port with tip at proximal right atrium similar to prior studies. The heart is normal in size. The vascularity is normal. The lungs are clear. There is no airspace consolidation or groundglass opacity or effusion. The hilar and mediastinal contours and visualized bony structures are unremarkable. XR/XR chest 1V IMPRESSION: Unremarkable examination.
[2021-04-25 12:56] VITALS: BP 111/80; PULSE 136; RESP 26; TEMP 37.2; O2SAT 98; BMI 43.0
--- NOTE | 2021-04-25 13:10 | ED_ITS ---
HPI - SOB/Dyspnea General Chief Complaint: Dyspnea Stated Complaint: SOB Time Seen by Provider: 04/25/21 13:07 Source: patient Mode of arrival: ambulatory Limitations: no limitations History of Present Illness HPI Narrative: Patient with shortness of breath since last night. Last weekend patient was told that she has pneumonia, and was admitted. Discharged 2 days ago. Went back to [facility] yesterday and was discharged MD elicited complaint: shortness of breath Pertinent past history: COPD and asthma Onset (ago): day(s) Context: recent illness Timing: constant Severity: mild Related Data Home Medications Medication Instructions Recorded Confirmed diltiazem HCl 180 mg PO DAILY 09/03/20 03/06/21 fluoxetine 60 mg PO DAILY 09/03/20 03/06/21 montelukast 10 mg PO BEDTIME 09/03/20 03/06/21 risperidone 0.5 mg PO BEDTIME 09/03/20 03/06/21 topiramate 50 mg PO BEDTIME 09/03/20 03/06/21 trazodone 150 mg PO BEDTIME 09/03/20 03/06/21 omeprazole 40 mg PO BEDTIME 02/16/21 03/06/21 warfarin 12.5 mg PO SUWEFR 02/16/21 03/06/21 warfarin 1 tab PO MOTUTHSA 03/06/21 03/06/21 Trelegy Ellipta 1 puff PO DAILY 03/08/21 03/08/21 ipratropium-albuterol 3 ml INHALATION Q6H PRN 03/08/21 03/08/21 Previous Rx's Medication Instructions Recorded dextromethorphan-guaifenesin 10 ml PO Q4-8H PRN #118 ml 03/08/21 [Robitussin Cough-Chest Saad DM] dextromethorphan-guaifenesin 2 tab-cap PO Q4-6H PRN #1 cap 03/14/21 [Robitussin Cough-Chest Saad DM] dicyclomine 20 mg PO BID PRN #10 tab 03/15/21 prednisone 40 mg PO DAILY #8 tab 04/01/21 Allergies Allergy/AdvReac Type Severity Reaction Status Date / Time azithromycin Allergy Intermediate ITCHING Verified 03/06/21 20:19 [From ZITHROMAX Z-XANDER] amoxicillin [AMOXICILLIN] Allergy Unknown UNKNOWN, Verified 03/06/21 20:19 hives, swelling budesonide [From SYMBICORT] Allergy Unknown UNKNOWN Verified 03/06/21 20:19 cefpodoxime [From VANTIN] Allergy Unknown UNKNOWN Verified 03/06/21 20:19 cefuroxime [From CEFTIN] Allergy Unknown UNKNOWN Verified 03/06/21 20:19 Cephalosporins Allergy Unknown UNKNOWN Verified 03/06/21 20:19 [CEPHALOSPORINS] ciprofloxacin [From CIPRO] Allergy Unknown UNKNOWN Verified 03/06/21 20:19 diphtheria,pertussis Allergy Unknown Unknown Verified 03/06/21 20:19 (acellular),te [Adacel(Tdap Adolesn/Adult)(PF)] erythromycin base Allergy Unknown UNKNOWN Verified 03/06/21 20:19 [ERYTHROMYCIN BASE] fluticasone [Advair Diskus] Allergy Unknown Unknown Verified 03/06/21 20:19 formoterol [From SYMBICORT] Allergy Unknown UNKNOWN Verified 03/06/21 20:19 hydrocodone [From VICODIN] Allergy Unknown unknown Verified 03/06/21 20:19 Iodinated Contrast Media Allergy Unknown UNKNOWN Verified 03/06/21 20:19 [CONTRAST, IV] levofloxacin [From LEVAQUIN] Allergy Unknown UNKNOWN Verified 03/06/21 20:19 penicillin G Allergy Unknown Unknown Verified 03/06/21 20:19 penicillin V Allergy Unknown Unknown Verified 03/06/21 20:19 Penicillins [PENICILLINS] Allergy Unknown UNKNOWN Verified 03/06/21 20:19 salmeterol [Advair Diskus] Allergy Unknown Unknown Verified 03/06/21 20:19 sertraline [From ZOLOFT] Allergy Unknown SUICIDAL Verified 03/06/21 20:19 Sulfa (Sulfonamide Allergy Unknown hives Verified 03/06/21 20:19 Antibiotics) tetanus and diphtheria Allergy Unknown UNKNOWN Verified 03/06/21 20:19 toxoids [TETANUS & DIPHTHERIA TOXOIDS] Vantin Allergy Unknown Unknown Verified 03/06/21 20:19 ketorolac [From TORADOL] AdvReac Mild ITCHING Verified 03/06/21 20:19 Ceftin Allergy Unknown Unknown Uncoded 03/06/21 20:19 IV dye Allergy Unknown Unknown Uncoded 03/06/21 20:19 Symbicort Allergy Unknown Unknown Uncoded 03/06/21 20:19 Tetanus Allergy Unknown Unknown Uncoded 03/06/21 20:19 Erythromycin Allergy Unknown Uncoded 03/06/21 20:19 Review of Systems Constitutional: Constitutional: Reports no additional constitutional complaints Eyes: Eyes: Reports no additional eye complaints ENT: Denies dizziness Cardiovascular: Cardiovascular: Reports no additional cardiovascular complaints Respiratory: Respiratory: Reports as per HPI Gastrointestinal: Gastrointestinal: Reports no additional gastrointestinal complaints Genitourinary: Genitourinary: Reports no additional female genitourinary complaints Musculoskeletal: Musculoskeletal: Reports no additional musculoskeletal complaints Integumentary/Breasts: Skin/Breast: Denies rash Neurologic: Reports system reviewed and no additional complaints, except as documented, Denies dizziness and Denies Sensory deficit (Neuro) Psychiatric: Psychiatric: Denies anxiety PMFSH Past Medical History Medical History Anxiety Asthma Atrial fibrillation CHF (congestive heart failure) Depression DVT (deep venous thrombosis) Hypertension Morbid obesity Social History Social History Household Members: Family Housing: Apartment Housing Other:: duplex Do you presently have visiting nurse or other home services: No Alcohol intake: current Alcohol intake frequency: 0-2 drinks per day Second Hand Smoke Exposure: No Advance Directives: Yes Advance Directives on File: Yes Advance Directives Date on File: 09/06/20 Patient : No service: No Current occupational status: disabled Physical Exam Vital Signs: Vital Signs: Last Vital Signs Temp 99.0 F 04/25/21 12:56 Pulse 114 H 04/25/21 14:39 Resp 24 H 04/25/21 14:25 BP 134/74 04/25/21 14:25 Pulse Ox 98 04/25/21 14:25 Oxygen Flow Rate 2 04/25/21 12:56 Body Mass Index 43.0 Const: Other: patient with similar presentation as the past, much more short of breath with strange cough and anxiety Nutritional Appearance: obese Orientation/consciousness: oriented to person and patient oriented x3 Limitations: no limitations HENMT: Head: Yes normal to inspection Ears: external ears normal General nose exam: Normal external nose present Mouth: Normal oral and palatal mucosa present and oropharynx normal Throat: Yes posterior oropharynx normal Eyes: General: appearance normal, both eyes and all related structures Neck: Other: supple Neck: Yes normal visual inspection Chest: Chest palpation & inspection: normal inspection of the chest Resp: Other: slight wheeze with good air movement Cardio: Jugular venous distension: no JVD Rate: regular rate Rhythm: regular rhythm Heart sounds: S1 normal heart sound present and S2 normal heart sound present GI: Inspection: Yes normal to inspection Palpation (GI): Soft to palpation, nontender and No hepatosplenomegaly present Auscultation: normal bowel sounds : General: Yes no CVA tenderness Back/Spine/Pelvis: Back: no CVA tenderness Skin: General skin exam: no rashes or lesions noted Neuro: General: oriented to person and patient oriented x3 Cranial nerves: Yes CN's II-XII intact bilaterally Motor exam (neuro): 5/5 motor strength present throughout Sensory Exam: No Sensory deficit (Neuro) Extrem: General: Yes normal to inspection Psych: Appearance: grossly normal Course Course Course Narrative: old records reviewed: patient had a CT chest negative for PE with question on ground glass opacification in RLL and RML so she was treated for pneumonia. Patient was seen yesterday on the day of her discharge at [facility] where her work up was negative and she was discharged home Reevaluation(s) Reevaluation #1: patient relaxed sleeping will dc home Time: 15:35 MDM - SOB/Dyspnea Lab Data Result diagrams: 04/25/21 14:04 04/25/21 14:04 Labs: Lab Results 04/25/21 04/25/21 04/25/21 Range/Units 14:04 14:04 14:04 WBC 5.2 (4.8-10.8) X10*3/uL RBC 3.50 L (4.20-5.50) X10*6/uL Hgb 8.7 L (12.0-16.0) g/dl Hct 28.5 L (37-47) % MCV 81.4 (80-98) fL MCH 24.9 L (27.0-33.0) pg MCHC 30.5 L (31.0-35.0) g/dl RDW 16.0 (11.0-16.0) % Plt Count 211 (160-400) X10*3/uL MPV 11.4 (9.4-12.3) fL Immature Gran % (Auto) 0.2 (0.0-0.4) % Neut % (Auto) 61.7 (45-73) % Lymph % (Auto) 27.7 (20-40) % Pitkin % (Auto) 8.3 (2-11) % Eos % (Auto) 1.9 (0-4) % Baso % (Auto) 0.2 (0-2) % Lymph # (Auto) 1.4 (1.2-4.9) X10*3/uL Pitkin # (Auto) 0.4 (0.1-1.2) X10*3/uL Eos # (Auto) 0.1 (0.0-0.4) X10*3/uL Baso # (Auto) 0.0 (0.0-0.2) X10*3/uL Abs Immat Gran (auto) 0.01 (0.00-0.03) X10*3/uL Absolute Neuts (auto) 3.2 (2.0-8.3) X10*3/uL Absolute Nucleated RBC 0.000 (0.0-0.012) X10*3/uL Nucleated RBC % (auto) 0.0 (0.0-0.2) /100WBC VBG pH (7.32-7.43) VBG pCO2 mmHg VBG pO2 mmHg VBG HCO3 (22-26) mmol/L VBG O2 Saturation % VBG Base Excess mmol/L Sodium 142 (135-145) mmol/L Potassium 3.7 (3.3-5.1) mmol/L Chloride 108 (96-108) mmol/L Carbon Dioxide 25 (22-29) mmol/L Anion Gap 13 (12-20) BUN 12 D (9-16) mg/dL Creatinine 0.95 (0.5-1.4) mg/dL Estim Creat Clear Calc 74.3 Estimated GFR > 60 Random Glucose 119 H (60-115) mg/dL Calcium 9.2 (8.4-10.2) mg/dL Coronavirus (PCR) NEGATIVE (Negative) Influenza Type A (PCR) NEGATIVE (Negative) Influenza Type B (PCR) NEGATIVE (Negative) RSV RNA Qual (PCR) NEGATIVE (Negative) 04/25/21 Range/Units 14:10 WBC (4.8-10.8) X10*3/uL RBC (4.20-5.50) X10*6/uL Hgb (12.0-16.0) g/dl Hct (37-47) % MCV (80-98) fL MCH (27.0-33.0) pg MCHC (31.0-35.0) g/dl RDW (11.0-16.0) % Plt Count (160-400) X10*3/uL MPV (9.4-12.3) fL Immature Gran % (Auto) (0.0-0.4) % Neut % (Auto) (45-73) % Lymph % (Auto) (20-40) % Pitkin % (Auto) (2-11) % Eos % (Auto) (0-4) % Baso % (Auto) (0-2) % Lymph # (Auto) (1.2-4.9) X10*3/uL Pitkin # (Auto) (0.1-1.2) X10*3/uL Eos # (Auto) (0.0-0.4) X10*3/uL Baso # (Auto) (0.0-0.2) X10*3/uL Abs Immat Gran (auto) (0.00-0.03) X10*3/uL Absolute Neuts (auto) (2.0-8.3) X10*3/uL Absolute Nucleated RBC (0.0-0.012) X10*3/uL Nucleated RBC % (auto) (0.0-0.2) /100WBC VBG pH 7.45 H (7.32-7.43) VBG pCO2 35 mmHg VBG pO2 113 mmHg VBG HCO3 24 (22-26) mmol/L VBG O2 Saturation 98.0 % VBG Base Excess 1.1 mmol/L Sodium (135-145) mmol/L Potassium (3.3-5.1) mmol/L Chloride (96-108) mmol/L Carbon Dioxide (22-29) mmol/L Anion Gap (12-20) BUN (9-16) mg/dL Creatinine (0.5-1.4) mg/dL Estim Creat Clear Calc Estimated GFR Random Glucose (60-115) mg/dL Calcium (8.4-10.2) mg/dL Coronavirus (PCR) (Negative) Influenza Type A (PCR) (Negative) Influenza Type B (PCR) (Negative) RSV RNA Qual (PCR) (Negative) Imaging Data Chest x-ray: Radiologist's impression: IMPRESSION: Unremarkable examination. Discharge Plan Discharge Clinical Impression: Acute exacerbation of chronic obstructive airways disease, Anxiety Patient Disposition: Home, Self-Care Instructions: Asthma (ED) Prescriptions: No Action Robitussin Cough-Chest Saad DM 10-200 mg capsule 2 tab-cap PO Q4-6H PRN (Reason: cough) Qty: 1 RF: 0 diltiazem HCl 180 mg Capsule,Extended Release 24 Hr 180 mg PO DAILY RF: 0 risperidone 0.25 mg Tablet 0.5 mg PO BEDTIME RF: 0 montelukast 10 mg Tablet 10 mg PO BEDTIME RF: 0 topiramate 50 mg Tablet 50 mg PO BEDTIME RF: 0 fluoxetine 60 mg Tablet 60 mg PO DAILY RF: 0 trazodone 100 mg Tablet 150 mg PO BEDTIME RF: 0 warfarin 5 mg Tablet 12.5 mg PO SUWEFR RF: 0 Hold Instructions: Resume on 02/27/21. Change dose to 10mg and check inr on 02/27/21 if below 3 start coumadin 10mg omeprazole 40 mg Capsule,Delayed Release(Dr/Ec) 40 mg PO BEDTIME RF: 0 warfarin 10 mg tablet 1 tab PO MOTUTHSA RF: 0 Trelegy Ellipta 100-62.5-25 mcg blister with device 1 puff PO DAILY RF: 0 ipratropium-albuterol 0.5 mg-3 mg(2.5 mg base)/3 mL Solution For Nebulization 3 ml INHALATION Q6H PRN (Reason: Wheezing) RF: 0 Robitussin Cough-Chest Saad DM 5-100 mg/5 mL liquid 10 ml PO Q4-8H PRN (Reason: cough) Qty: 118 RF: 0 dicyclomine 20 mg tablet 20 mg PO BID PRN (Reason: abdominal pain) Qty: 10 RF: 0 prednisone 20 mg tablet 40 mg PO DAILY Qty: 8 RF: 0 Referrals: Physician,None [Primary Care Provider] - 2 days (Must call your doctor and be seen in 2 days)
[2021-04-25] MEDS: Albuterol Sulfate (0.083%) 2.5 MG/3 ML VIAL.NEB INHALE (13:32)
[2021-04-25 13:34] VITALS: PULSE 109; O2SAT 99
[2021-04-25 14:10] LABS: MANUAL DIFF FLAG NO
[2021-04-25 14:13] LABS: Basophils Percent Auto 0.2 % (0-2); Eosinophils Absolute Auto 0.1 X10*3/uL (0.0-0.4); Eosinophils Percent Auto 1.9 % (0-4); Hematocrit 28.5 % (37-47); Hemoglobin 8.7 g/dl (12.0-16.0); Imm Gran Abs Auto 0.01 X10*3/uL (0.00-0.03); Imm Gran Pct Auto 0.2 % (0.0-0.4); Lymphocytes Absolute Auto 1.4 X10*3/uL (1.2-4.9); Lymphocytes Percent Auto 27.7 % (20-40); Mean Corpuscular HGB Conc 30.5 g/dl (31.0-35.0); Mean Corpuscular Hemoglobin 24.9 pg (27.0-33.0); Mean Corpuscular Volume 81.4 fL (80-98); Mean Platelet Volume 11.4 fL (9.4-12.3); Monocytes Absolute Auto 0.4 X10*3/uL (0.1-1.2); Monocytes Percent Auto 8.3 % (2-11); Neutrophils Absolute Auto 3.2 X10*3/uL (2.0-8.3); Neutrophils Percent Auto 61.7 % (45-73); Platelet Count 211 X10*3/uL (160-400); White Blood Count 5.2 X10*3/uL (4.8-10.8)
[2021-04-25 14:17] LABS: VBG Base Excess 1.1 mmol/L; VBG HCO3 24 mmol/L (22-26); VBG pCO2 35 mmHg; VBG pH 7.45 (7.32-7.43); VBG pO2 113 mmHg
[2021-04-25 14:19] LABS: Venous Blood Gas Refer to POC result
[2021-04-25 14:25] VITALS: BP 134/74; PULSE 133; RESP 24; O2SAT 98
[2021-04-25 14:39] VITALS: PULSE 114
[2021-04-25] MEDS: Albuterol Sulfate (0.083%) 2.5 MG/3 ML VIAL.NEB 10 MG INHALE (14:39)
[2021-04-25 14:55] LABS: Influenza A PCR NEGATIVE (Negative); Influenza B PCR NEGATIVE (Negative); Resp Syncy Virus RNA Qual PCR NEGATIVE (Negative); SARS COV2 PCR INHOUSE NEGATIVE (Negative)
[2021-04-25 15:02] LABS: Anion Gap 13 (12-20); Blood Urea Nitrogen 12 mg/dL (9-16); Calcium 9.2 mg/dL (8.4-10.2); Carbon Dioxide 25 mmol/L (22-29); Chloride 108 mmol/L (96-108); Creatinine Clr Calc Pharmacy 74.3; Estimated Glomerular Filt Rate > 60; Glucose Random 119 mg/dL (60-115); Potassium 3.7 mmol/L (3.3-5.1); Sodium 142 mmol/L (135-145)
[2021-04-25] MEDS: Heparin Sodium,Porcine Flush 50 UNITS, 0.9 % Sodium Chloride Flush 5 ML IVFLUSH (16:05)
== END 2021-04-25 16:07 | disposition home or self-care (01) ==
PROVIDERS: Emergency Provider Emergency Medicine
DX: J44.1 Chronic obstructive pulmonary disease with (acute) exacerbation (principal); F41.9 Anxiety disorder, unspecified; I48.91 Unspecified atrial fibrillation; I11.0 Hypertensive heart disease with heart failure; I50.9 Heart failure, unspecified; Z86.718 Personal history of other venous thrombosis and embolism; Z79.01 Long term (current) use of anticoagulants; Z79.899 Other long term (current) drug therapy; Z20.822 Contact with and (suspected) exposure to COVID-19
CPT/HCPCS: 0241U; 36415; 71045; 80048; 85025; 94640; 94644; 99284; J1642

== ENCOUNTER 2021-05-13 08:44 | Inpatient (IN) | payer MEDICARE, MEDICAID, SELFPAY ==
--- NOTE | ~2021-05-13 | XR_ITS ---
EXAMINATION: XR CHEST CLINICAL INFORMATION: Pneumonia, CHF? COMPARISON: April 25, 2021 TECHNIQUE: AP portable view of the chest was obtained. FINDINGS: No significant abnormality is noted involving the heart, lungs, mediastinum, bony thorax or soft tissues. Left internal jugular port catheter in place with tip within the right atrium. XR/XR chest 1V IMPRESSION: No acute disease.
[2021-05-13 08:53] VITALS: BP 131/93; PULSE 95; RESP 20; TEMP 36.7; O2SAT 100; BMI 43.0
[2021-05-13 09:00] VITALS: RESP 20
--- NOTE | 2021-05-13 09:29 | ED.PSYCH ---
HPI - Psych General Chief Complaint: Psychiatric Symptoms Stated Complaint: CRISIS Time Seen by Provider: 05/13/21 11:22 Source: patient Mode of arrival: ambulatory Limitations: no limitations History of Present Illness HPI Narrative: Patient presents to ED for suicidal ideation. Patient states feeling depressed and suicidal. Patient patient states feeling suicidal because of feeling constantly sick since April. Patient has multiple admissions to [place] [id number] for anemia, slight fluid around the heart, and tachycardia. Patient has history of depression. MD complaint: suicidal ideation Related Data Home Medications Medication Instructions Recorded Confirmed diltiazem HCl 180 mg PO DAILY 09/03/20 05/13/21 montelukast 10 mg PO BEDTIME 09/03/20 05/13/21 risperidone 0.5 mg PO BEDTIME 09/03/20 05/13/21 trazodone 150 mg PO BEDTIME 09/03/20 05/13/21 omeprazole 40 mg PO BEDTIME 02/16/21 05/13/21 warfarin 10 mg PO SUTUTH@1800 03/06/21 05/13/21 Trelegy Ellipta 1 puff PO DAILY 03/08/21 05/13/21 ipratropium-albuterol 3 ml INHALATION Q6H PRN 03/08/21 05/13/21 escitalopram oxalate 1 tab PO QAM 05/13/21 05/13/21 warfarin 12.5 mg PO MOWEFRSA@1800 05/13/21 05/13/21 Allergies Allergy/AdvReac Type Severity Reaction Status Date / Time azithromycin Allergy Intermediate ITCHING Verified 03/06/21 20:19 [From ZITHROMAX Z-XANDER] amoxicillin [AMOXICILLIN] Allergy Unknown UNKNOWN, Verified 03/06/21 20:19 hives, swelling budesonide [From SYMBICORT] Allergy Unknown UNKNOWN Verified 03/06/21 20:19 cefpodoxime [From VANTIN] Allergy Unknown UNKNOWN Verified 03/06/21 20:19 cefuroxime [From CEFTIN] Allergy Unknown UNKNOWN Verified 03/06/21 20:19 Cephalosporins Allergy Unknown UNKNOWN Verified 03/06/21 20:19 [CEPHALOSPORINS] ciprofloxacin [From CIPRO] Allergy Unknown UNKNOWN Verified 03/06/21 20:19 diphtheria,pertussis Allergy Unknown Unknown Verified 03/06/21 20:19 (acellular),te [Adacel(Tdap Adolesn/Adult)(PF)] erythromycin base Allergy Unknown UNKNOWN Verified 03/06/21 20:19 [ERYTHROMYCIN BASE] fluticasone [Advair Diskus] Allergy Unknown Unknown Verified 03/06/21 20:19 formoterol [From SYMBICORT] Allergy Unknown UNKNOWN Verified 03/06/21 20:19 hydrocodone [From VICODIN] Allergy Unknown unknown Verified 03/06/21 20:19 Iodinated Contrast Media Allergy Unknown UNKNOWN Verified 03/06/21 20:19 [CONTRAST, IV] levofloxacin [From LEVAQUIN] Allergy Unknown UNKNOWN Verified 03/06/21 20:19 penicillin G Allergy Unknown Unknown Verified 03/06/21 20:19 penicillin V Allergy Unknown Unknown Verified 03/06/21 20:19 Penicillins [PENICILLINS] Allergy Unknown UNKNOWN Verified 03/06/21 20:19 salmeterol [Advair Diskus] Allergy Unknown Unknown Verified 03/06/21 20:19 sertraline [From ZOLOFT] Allergy Unknown SUICIDAL Verified 03/06/21 20:19 Sulfa (Sulfonamide Allergy Unknown hives Verified 03/06/21 20:19 Antibiotics) tetanus and diphtheria Allergy Unknown UNKNOWN Verified 03/06/21 20:19 toxoids [TETANUS & DIPHTHERIA TOXOIDS] Vantin Allergy Unknown Unknown Verified 03/06/21 20:19 ketorolac [From TORADOL] AdvReac Mild ITCHING Verified 03/06/21 20:19 Ceftin Allergy Unknown Unknown Uncoded 03/06/21 20:19 IV dye Allergy Unknown Unknown Uncoded 03/06/21 20:19 Symbicort Allergy Unknown Unknown Uncoded 03/06/21 20:19 Tetanus Allergy Unknown Unknown Uncoded 03/06/21 20:19 Erythromycin Allergy Unknown Uncoded 03/06/21 20:19 Review of Systems Review of Systems: Yes all other systems are reviewed and are negative Constitutional: Constitutional: Reports as per HPI and Reports no additional constitutional complaints Eyes: Eyes: Reports as per HPI and Reports no additional eye complaints ENT: Reports system reviewed and no additional complaints, except as documented and Reports as per HPI Cardiovascular: Cardiovascular: Reports as per HPI, Reports no additional cardiovascular complaints and Reports chest pain (since april 21) Respiratory: Respiratory: Reports as per HPI and Reports no additional respiratory complaints Gastrointestinal: Gastrointestinal: Reports as per HPI and Reports no additional gastrointestinal complaints Genitourinary: Genitourinary: Reports no additional female genitourinary complaints and Reports as per HPI Musculoskeletal: Musculoskeletal: Reports no additional musculoskeletal complaints and Reports as per HPI Integumentary/Breasts: Skin/Breast: Reports system reviewed and no additional complaints, except as docu and Reports as per HPI Neurologic: Reports system reviewed and no additional complaints, except as documented and Reports as per HPI Psychiatric: Psychiatric: Reports no additional psychiatric complaints, Reports as per HPI, Reports depression and Reports suicidal ideation [facility] Past Medical History Medical History Anxiety Asthma Atrial fibrillation CHF (congestive heart failure) Depression DVT (deep venous thrombosis) Hypertension Morbid obesity Social History Social History Household Members: Family Housing: Apartment Housing Other:: duplex Do you presently have visiting nurse or other home services: No Alcohol intake: former Patient Tobacco Use Status: Former Tobacco user Second Hand Smoke Exposure: No Use of substances other than those prescribed or required for medical reasons: No Advance Directives: Yes Advance Directives on File: Yes Advance Directives Date on File: 09/06/20 Healthcare Proxy: No Guardian: No Patient : No service: No Current occupational status: disabled Physical Exam Vital Signs: Vital Signs: Last Vital Signs Temp 97.2 F 05/13/21 15:12 Pulse 89 05/13/21 15:12 Resp 20 05/13/21 09:00 BP 128/71 05/13/21 15:12 Pulse Ox 98 05/13/21 15:12 Body Mass Index 43.0 Const: General: cooperative, healthy appearing, comfortable, no acute distress, well developed, alert, awake and Physically active Orientation/consciousness: patient oriented x3 HENMT: Head: Yes normal to inspection, Yes No palpable skull fracture present, Yes normocephalic, Yes atraumatic and No abrasion Eyes: General: appearance normal, both eyes and all related structures Neck: Neck: Yes normal visual inspection, Yes full ROM, Yes no lymphadenopathy, Yes no meningeal signs, Yes trachea midline, Yes supple and No tender Chest: Chest palpation & inspection: normal inspection of the chest and normal palpation of entire chest wall Resp: Effort & Inspection: normal respiratory effort and able to speak in complete sentences Auscultation: clear to auscultation bilaterally Cardio: Jugular venous distension: no JVD Heart sounds: S1 normal heart sound present and S2 normal heart sound present GI: Inspection: Yes normal to inspection and No abdominal wall ecchymosis Palpation (GI): Soft to palpation, not firm, nontender, no guarding and not rigid : General: No CVA tenderness and Yes no CVA tenderness Back/Spine/Pelvis: Back: no CVA tenderness, No CVA tenderness and No back tenderness Skin: General skin exam: no rashes or lesions noted and elasticity normal Neuro: General: patient oriented x3, gait normal, no meningeal signs and CN's II-XI intact bilaterally Cranial nerves: Yes CN's II-XII intact bilaterally Extrem: Other: Patient obese. Both lower extremities are the same size. Negative for any pitting edema or calf tenderness. Negative for any redness. General: Yes normal to inspection and Yes full ROM Psych: Appearance: grossly normal, well kempt and not disheveled Course Course Course Narrative: Patient presently stable. Patient vital signs stable. Patient is not showing signs of any respiratory distress. Will do medical evaluation which include troponin, BNP, chest x-ray. Will get records from [facility]. EKG ordered. Type and screen ordered. Reevaluation(s) Reevaluation #1: Perceive patient's [facility] ED notes from the 10 of May. Patient was there for similar complaints. As per ED note patient was discharged May 09 and was ruled out for PE. Patient also received blood transfusion during admission during the hospital. Before she was discharged on May 09. Chest CT during admission in April it only showed thin fluid around the heart. The ED on May 10 patient was evaluated and discharged. During that visit patient had mild left leg swelling compared to the right and had ultrasound whic was negative for DVT. Patient's troponin negative. Patient's BNP was also negative. Patient did not require blood transfusion an EKG was normal. Patient was safely discharged with normal vital signs. In the ER they also did bedside cardiac ultrasound which was negative for heart strain. Time: 10:00 Reevaluation #2: Patient's troponin BNP negative. Chest x-ray normal. Hemoglobin/hematocrit is stable and similar to visit at [facility] on the 10 of May. COVID swab negative. INR is 2. Patient history physical exam not in fluid overload. Patient eating food, talking and laughing with staff. Not suspect any cardiac tamponade or large pericardial effusion. Case was discussed with Dr. Gonzalez and he does not recommend repeat chest CT. He was informed of patient's PTT over 200. Patient is not on any heparin. Patient states taking warfarin 12 mg every other day and in between states taking 10 mg of warfarin. Will do repeat a PTT. Time: 14:40 Reevaluation #3: Repeat PTT came back at 56 which is her baseline. Patient evaluated by care team consulted [facility] and recommend inpatient for psych. pResently Not suspecting any PE, NE, pericardial effusion, pneumonia, Pericarditis, or Covid. Patient presently laughing with staff. Patient is on one-to-one. Patient is medically cleared Time: 16:24 MDM - Psych MDM Narrative Medical decision making narrative: Depression SI Lab Data Result diagrams: 05/13/21 11:47 05/13/21 11:47 Labs: Lab Results 05/13/21 05/13/21 05/13/21 Range/Units 10:33 10:33 10:33 WBC (4.8-10.8) X10*3/uL RBC (4.20-5.50) X10*6/uL Hgb (12.0-16.0) g/dl Hct (37-47) % MCV (80-98) fL MCH (27.0-33.0) pg MCHC (31.0-35.0) g/dl RDW (11.0-16.0) % Plt Count (160-400) X10*3/uL MPV (9.4-12.3) fL Immature Gran % (Auto) (0.0-0.4) % Neut % (Auto) (45-73) % Lymph % (Auto) (20-40) % [place] % (Auto) (2-11) % Eos % (Auto) (0-4) % Baso % (Auto) (0-2) % Lymph # (Auto) (1.2-4.9) X10*3/uL [place] # (Auto) (0.1-1.2) X10*3/uL Eos # (Auto) (0.0-0.4) X10*3/uL Baso # (Auto) (0.0-0.2) X10*3/uL Abs Immat Gran (auto) (0.00-0.03) X10*3/uL Absolute Neuts (auto) (2.0-8.3) X10*3/uL Absolute Nucleated RBC (0.0-0.012) X10*3/uL Nucleated RBC % (auto) (0.0-0.2) /100WBC PT (9.9-13.0) SEC INR (0.9-1.1) APTT (24.1-38.0) SEC Sodium (135-145) mmol/L Potassium (3.3-5.1) mmol/L Chloride (96-108) mmol/L Carbon Dioxide (22-29) mmol/L Anion Gap (12-20) BUN (9-16) mg/dL Creatinine (0.5-1.4) mg/dL Estim Creat Clear Calc Estimated GFR Random Glucose (60-115) mg/dL Calcium (8.4-10.2) mg/dL Total Bilirubin (0.0-1.0) mg/dL AST (5-31) U/L ALT (0-31) U/L Alkaline Phosphatase (39-117) U/L Troponin I High Sens (<3.5-17.0) ng/L B-Natriuretic Peptide (<100) pg/mL Total Protein (6.5-8.0) g/dL Albumin (3.5-5.0) g/dL Beta HCG, Quant mIU/mL Urine Color YELLOW Urine Appearance CLEAR Urine pH 7.0 (5.0-8.0) Ur Specific [place] 1.010 (1.005-1.025) Urine Protein NEG (NEG-TRACE) MG/DL Urine Glucose (UA) NEG (NEG) MG/DL Urine Ketones NEG (NEG) MG/DL Urine Blood NEG (NEG) Urine Nitrite NEG (NEG) Ur Leukocyte Esterase NEG (NEG) Urine Opiates Screen Not Detected (Not Detect) Ur Barbiturates Screen Not Detected (Not Detect) Ur Phencyclidine Scrn Not Detected (Not Detect) Ur Amphetamines Screen Not Detected (Not Detect) U Benzodiazepines Scrn Not Detected (Not Detect) Urine Cocaine Screen Not Detected (Not Detect) U Marijuana (THC) Screen Not Detected (Not Detect) COVID-19 (ELYSE) Cancelled COVID-19 Clin Com Cancelled Blood Type Antibody Screen 05/13/21 05/13/21 05/13/21 Range/Units 11:14 11:47 11:47 WBC 4.8 (4.8-10.8) X10*3/uL RBC 3.49 L (4.20-5.50) X10*6/uL Hgb 9.1 L (12.0-16.0) g/dl Hct 29.2 L (37-47) % MCV 83.7 (80-98) fL MCH 26.1 L (27.0-33.0) pg MCHC 31.2 (31.0-35.0) g/dl RDW 17.8 H (11.0-16.0) % Plt Count 205 (160-400) X10*3/uL MPV 11.0 (9.4-12.3) fL Immature Gran % (Auto) 0.4 (0.0-0.4) % Neut % (Auto) 70.4 (45-73) % Lymph % (Auto) 18.3 L (20-40) % [place] % (Auto) 6.5 (2-11) % Eos % (Auto) 3.8 (0-4) % Baso % (Auto) 0.6 (0-2) % Lymph # (Auto) 0.9 L (1.2-4.9) X10*3/uL [place] # (Auto) 0.3 (0.1-1.2) X10*3/uL Eos # (Auto) 0.2 (0.0-0.4) X10*3/uL Baso # (Auto) 0.0 (0.0-0.2) X10*3/uL Abs Immat Gran (auto) 0.02 (0.00-0.03) X10*3/uL Absolute Neuts (auto) 3.4 (2.0-8.3) X10*3/uL Absolute Nucleated RBC 0.000 (0.0-0.012) X10*3/uL Nucleated RBC % (auto) 0.0 (0.0-0.2) /100WBC PT 23.5 H (9.9-13.0) SEC INR 2.0 H (0.9-1.1) APTT > 200.0 H* (24.1-38.0) SEC Sodium (135-145) mmol/L Potassium (3.3-5.1) mmol/L Chloride (96-108) mmol/L Carbon Dioxide (22-29) mmol/L Anion Gap (12-20) BUN (9-16) mg/dL Creatinine (0.5-1.4) mg/dL Estim Creat Clear Calc Estimated GFR Random Glucose (60-115) mg/dL Calcium (8.4-10.2) mg/dL Total Bilirubin (0.0-1.0) mg/dL AST (5-31) U/L ALT (0-31) U/L Alkaline Phosphatase (39-117) U/L Troponin I High Sens (<3.5-17.0) ng/L B-Natriuretic Peptide (<100) pg/mL Total Protein (6.5-8.0) g/dL Albumin (3.5-5.0) g/dL Beta HCG, Quant mIU/mL Urine Color Urine Appearance Urine pH (5.0-8.0) Ur Specific [place] (1.005-1.025) Urine Protein (NEG-TRACE) MG/DL Urine Glucose (UA) (NEG) MG/DL Urine Ketones (NEG) MG/DL Urine Blood (NEG) Urine Nitrite (NEG) Ur Leukocyte Esterase (NEG) Urine Opiates Screen (Not Detect) Ur Barbiturates Screen (Not Detect) Ur Phencyclidine Scrn (Not Detect) Ur Amphetamines Screen (Not Detect) U Benzodiazepines Scrn (Not Detect) Urine Cocaine Screen (Not Detect) U Marijuana (THC) Screen (Not Detect) COVID-19 (ELYSE) Negative COVID-19 Clin Com See Note Blood Type Antibody Screen 05/13/21 05/13/21 05/13/21 Range/Units 11:47 11:47 11:55 WBC (4.8-10.8) X10*3/uL RBC (4.20-5.50) X10*6/uL Hgb (12.0-16.0) g/dl Hct (37-47) % MCV (80-98) fL MCH (27.0-33.0) pg MCHC (31.0-35.0) g/dl RDW (11.0-16.0) % Plt Count (160-400) X10*3/uL MPV (9.4-12.3) fL Immature Gran % (Auto) (0.0-0.4) % Neut % (Auto) (45-73) % Lymph % (Auto) (20-40) % [place] % (Auto) (2-11) % Eos % (Auto) (0-4) % Baso % (Auto) (0-2) % Lymph # (Auto) (1.2-4.9) X10*3/uL [place] # (Auto) (0.1-1.2) X10*3/uL Eos # (Auto) (0.0-0.4) X10*3/uL Baso # (Auto) (0.0-0.2) X10*3/uL Abs Immat Gran (auto) (0.00-0.03) X10*3/uL Absolute Neuts (auto) (2.0-8.3) X10*3/uL Absolute Nucleated RBC (0.0-0.012) X10*3/uL Nucleated RBC % (auto) (0.0-0.2) /100WBC PT (9.9-13.0) SEC INR (0.9-1.1) APTT (24.1-38.0) SEC Sodium 141 (135-145) mmol/L Potassium 4.3 (3.3-5.1) mmol/L Chloride 110 H (96-108) mmol/L Carbon Dioxide 22 (22-29) mmol/L Anion Gap 13 (12-20) BUN 11 (9-16) mg/dL Creatinine 0.80 (0.5-1.4) mg/dL Estim Creat Clear Calc 88.2 Estimated GFR > 60 Random Glucose 116 H (60-115) mg/dL Calcium 9.2 (8.4-10.2) mg/dL Total Bilirubin 0.3 (0.0-1.0) mg/dL AST 18 (5-31) U/L ALT 17 (0-31) U/L Alkaline Phosphatase 78 (39-117) U/L Troponin I High Sens < 3.5 (<3.5-17.0) ng/L B-Natriuretic Peptide 27 (<100) pg/mL Total Protein 6.1 L (6.5-8.0) g/dL Albumin 4.0 (3.5-5.0) g/dL Beta HCG, Quant < 2 mIU/mL Urine Color Urine Appearance Urine pH (5.0-8.0) Ur Specific [place] (1.005-1.025) Urine Protein (NEG-TRACE) MG/DL Urine Glucose (UA) (NEG) MG/DL Urine Ketones (NEG) MG/DL Urine Blood (NEG) Urine Nitrite (NEG) Ur Leukocyte Esterase (NEG) Urine Opiates Screen (Not Detect) Ur Barbiturates Screen (Not Detect) Ur Phencyclidine Scrn (Not Detect) Ur Amphetamines Screen (Not Detect) U Benzodiazepines Scrn (Not Detect) Urine Cocaine Screen (Not Detect) U Marijuana (THC) Screen (Not Detect) COVID-19 (ELYSE) COVID-19 Clin Com Blood Type O Positive Antibody Screen NEGATIVE 05/13/21 Range/Units 13:33 WBC (4.8-10.8) X10*3/uL RBC (4.20-5.50) X10*6/uL Hgb (12.0-16.0) g/dl Hct (37-47) % MCV (80-98) fL MCH (27.0-33.0) pg MCHC (31.0-35.0) g/dl RDW (11.0-16.0) % Plt Count (160-400) X10*3/uL MPV (9.4-12.3) fL Immature Gran % (Auto) (0.0-0.4) % Neut % (Auto) (45-73) % Lymph % (Auto) (20-40) % [place] % (Auto) (2-11) % Eos % (Auto) (0-4) % Baso % (Auto) (0-2) % Lymph # (Auto) (1.2-4.9) X10*3/uL [place] # (Auto) (0.1-1.2) X10*3/uL Eos # (Auto) (0.0-0.4) X10*3/uL Baso # (Auto) (0.0-0.2) X10*3/uL Abs Immat Gran (auto) (0.00-0.03) X10*3/uL Absolute Neuts (auto) (2.0-8.3) X10*3/uL Absolute Nucleated RBC (0.0-0.012) X10*3/uL Nucleated RBC % (auto) (0.0-0.2) /100WBC PT (9.9-13.0) SEC INR (0.9-1.1) APTT 56.5 H D (24.1-38.0) SEC Sodium (135-145) mmol/L Potassium (3.3-5.1) mmol/L Chloride (96-108) mmol/L Carbon Dioxide (22-29) mmol/L Anion Gap (12-20) BUN (9-16) mg/dL Creatinine (0.5-1.4) mg/dL Estim Creat Clear Calc Estimated GFR Random Glucose (60-115) mg/dL Calcium (8.4-10.2) mg/dL Total Bilirubin (0.0-1.0) mg/dL AST (5-31) U/L ALT (0-31) U/L Alkaline Phosphatase (39-117) U/L Troponin I High Sens (<3.5-17.0) ng/L B-Natriuretic Peptide (<100) pg/mL Total Protein (6.5-8.0) g/dL Albumin (3.5-5.0) g/dL Beta HCG, Quant mIU/mL Urine Color Urine Appearance Urine pH (5.0-8.0) Ur Specific [place] (1.005-1.025) Urine Protein (NEG-TRACE) MG/DL Urine Glucose (UA) (NEG) MG/DL Urine Ketones (NEG) MG/DL Urine Blood (NEG) Urine Nitrite (NEG) Ur Leukocyte Esterase (NEG) Urine Opiates Screen (Not Detect) Ur Barbiturates Screen (Not Detect) Ur Phencyclidine Scrn (Not Detect) Ur Amphetamines Screen (Not Detect) U Benzodiazepines Scrn (Not Detect) Urine Cocaine Screen (Not Detect) U Marijuana (THC) Screen (Not Detect) COVID-19 (ELYSE) COVID-19 Clin Com Blood Type Antibody Screen Discharge Plan Discharge Clinical Impression: Depression Prescriptions: No Action escitalopram oxalate 10 mg tablet 1 tab PO QAM RF: 0 warfarin 5 mg Tablet 12.5 mg PO MOWEFRSA@1800 RF: 0 diltiazem HCl 180 mg Capsule,Extended Release 24 Hr 180 mg PO DAILY RF: 0 risperidone 0.25 mg Tablet 0.5 mg PO BEDTIME RF: 0 montelukast 10 mg Tablet 10 mg PO BEDTIME RF: 0 trazodone 100 mg Tablet 150 mg PO BEDTIME RF: 0 omeprazole 40 mg Capsule,Delayed Release(Dr/Ec) 40 mg PO BEDTIME RF: 0 warfarin 10 mg tablet 10 mg PO SUTUTH@1800 RF: 0 Trelegy Ellipta 100-62.5-25 mcg blister with device 1 puff PO DAILY RF: 0 ipratropium-albuterol 0.5 mg-3 mg(2.5 mg base)/3 mL Solution For Nebulization 3 ml INHALATION Q6H PRN (Reason: Wheezing) RF: 0
--- NOTE | 2021-05-13 09:52 | ECG_ITS ---
Test Reason : CHEST PAIN Blood Pressure : / mmHG Vent. Rate : 082 BPM Atrial Rate : 082 BPM P-R Int : 168 ms QRS Dur : 078 ms QT Int : 386 ms P-R-T Axes : 043 000 033 degrees QTc Int : 450 ms Normal sinus rhythm Low voltage QRS Cannot rule out Anterior infarct (cited on or before 03-MAY-2019) Abnormal ECG When compared with ECG of 15-MAR-2021 10:08, No significant changes seen Referred By: Volodymyr Hernandez Electronically Signed By:AUTUMN BALLARD
[2021-05-13 10:50] LABS: Glucose Urine UA NEG (NEG); Leukocyte Esterase Urine NEG (NEG); Nitrite Urine NEG (NEG); Urine Blood NEG (NEG); Urine Ketones NEG (NEG); Urine Protein NEG (NEG-TRACE)
[2021-05-13 10:51] LABS: Appearance Urine CLEAR; Color Urine YELLOW
[2021-05-13 11:17] LABS: Amphetamine Screen Urine Not Detected (Not Detect); Barbiturates, Urine Not Detected (Not Detect); Benzodiazepines Screen Urine Not Detected (Not Detect); Cannabinoid Screen Urine Not Detected (Not Detect); Cocaine Screen Urine Not Detected (Not Detect); Opiate Screen Urine Not Detected (Not Detect); Phencyclidine Screen Urine Not Detected (Not Detect)
[2021-05-13 11:35] LABS: COVID-19 Test Negative (Negative)
[2021-05-13 11:53] LABS: Basophils Percent Auto 0.6 % (0-2); Eosinophils Absolute Auto 0.2 X10*3/uL (0.0-0.4); Eosinophils Percent Auto 3.8 % (0-4); Hematocrit 29.2 % (37-47); Hemoglobin 9.1 g/dl (12.0-16.0); Imm Gran Abs Auto 0.02 X10*3/uL (0.00-0.03); Imm Gran Pct Auto 0.4 % (0.0-0.4); Lymphocytes Absolute Auto 0.9 X10*3/uL (1.2-4.9); Lymphocytes Percent Auto 18.3 % (20-40); Mean Corpuscular HGB Conc 31.2 g/dl (31.0-35.0); Mean Corpuscular Hemoglobin 26.1 pg (27.0-33.0); Mean Corpuscular Volume 83.7 fL (80-98); Monocytes Absolute Auto 0.3 X10*3/uL (0.1-1.2); Monocytes Percent Auto 6.5 % (2-11); Neutrophils Absolute Auto 3.4 X10*3/uL (2.0-8.3); Neutrophils Percent Auto 70.4 % (45-73); Platelet Count 205 X10*3/uL (160-400); Red Blood Count 3.49 X10*6/uL (4.20-5.50); Red Cell Distribution Width 17.8 % (11.0-16.0); White Blood Count 4.8 X10*3/uL (4.8-10.8)
[2021-05-13 11:54] LABS: MANUAL DIFF FLAG NO
[2021-05-13 12:05] LABS: Prothrombin Time 23.5 SEC (9.9-13.0)
[2021-05-13] MEDS: LORazepam 1 MG TABLET 2 MG PO (12:28)
[2021-05-13 12:31] LABS: B Type Natriuretic Peptide 27 pg/mL (<100); Troponin-I High Sensitivity < 3.5 ng/L (<3.5-17.0)
[2021-05-13 12:36] LABS: Partial Thromboplastin Time > 200.0 SEC (24.1-38.0)
[2021-05-13 12:57] LABS: Alanine Aminotransferase 17 U/L (0-31); Alkaline Phosphatase 78 U/L (39-117); Anion Gap 13 (12-20); Aspartate Amino Transferase 18 U/L (5-31); Bilirubin Total 0.3 mg/dL (0.0-1.0); Blood Urea Nitrogen 11 mg/dL (9-16); Calcium 9.2 mg/dL (8.4-10.2); Carbon Dioxide 22 mmol/L (22-29); Chloride 110 mmol/L (96-108); Creatinine Clr Calc Pharmacy 88.2; Estimated Glomerular Filt Rate > 60; Glucose Random 116 mg/dL (60-115); Potassium 4.3 mmol/L (3.3-5.1); Sodium 141 mmol/L (135-145); Total Protein 6.1 g/dL (6.5-8.0)
[2021-05-13 13:05] LABS: HCG Quantitative < 2 mIU/mL
[2021-05-13 13:45] LABS: Partial Thromboplastin Time 56.5 SEC (24.1-38.0)
--- NOTE | 2021-05-13 13:59 | PC.NURSE ---
care team at bedside
--- NOTE | 2021-05-13 14:14 | PC.NURSE ---
bedsearch by care team
[2021-05-13] MEDS: Heparin Sodium,Porcine Flush 50 UNITS, 0.9 % Sodium Chloride Flush 5 ML IVFLUSH (14:26)
--- NOTE | 2021-05-13 14:30 | PC.NURSE ---
port deaccessed report given to francesco rn and pt back to pod with security and po
[2021-05-13 15:12] VITALS: BP 128/71; PULSE 89; TEMP 36.2; O2SAT 98
[2021-05-13 22:07] VITALS: BP 140/78; PULSE 83; TEMP 36.1; O2SAT 98
[2021-05-13] MEDS: traZODone HCL 50 MG TABLET 150 MG PO (23:11)
[2021-05-13] MEDS: Escitalopram Oxalate 10 MG TABLET PO (23:11)
[2021-05-13] MEDS: Montelukast Sodium 10 MG TABLET PO (23:12)
[2021-05-13] MEDS: Omeprazole 40 MG CAPSULE.DR PO (23:12)
[2021-05-13] MEDS: risperiDONE 1 MG TABLET PO (23:13)
[2021-05-13] MEDS: hydrOXYzine HCL 50 MG TABLET PO (23:33)
[2021-05-13 23:35] VITALS: BP 112/54; PULSE 76; RESP 17; TEMP 37.1; O2SAT 97
[2021-05-13] MEDS: Warfarin Sodium 7.5 MG TABLET PO (23:55)
--- NOTE | 2021-05-14 00:48 | PC.NURSE ---
Patient compliant with her night time medication, patient reported that she did not receive her Coumadin, provider notified/ordered Coumadin 7.5 mg/administered as ordered, patient in currently appears sleeping, no distress observed/reported, will continue to monitor.
--- NOTE | 2021-05-14 05:50 | PC.NURSE ---
Patient slept through the night, no distress observed/reported, med compliant, behavior appropriate, appetite good, elimination intact, VSS, disposition section 12 inpatient bed search, will continue to monitor.
--- NOTE | 2021-05-14 06:57 | PC.NURSE ---
patient appears to remain at rest at present, appears in no distress, respirations even and unlabored
[2021-05-14 07:53] VITALS: BP 112/54; PULSE 76
[2021-05-14] MEDS: Escitalopram Oxalate 10 MG TABLET PO (07:53)
[2021-05-14] MEDS: dilTIAZem HCL CD 180 MG CAP.ER.24H PO (07:53)
[2021-05-14 08:02] VITALS: BP 125/46; PULSE 73; RESP 16; TEMP 36.6; O2SAT 99
[2021-05-14 14:21] VITALS: BP 136/60; PULSE 90; RESP 16; TEMP 36.1; O2SAT 97
[2021-05-14 15:16] LABS: MANUAL DIFF FLAG NO
[2021-05-14 15:18] LABS: Basophils Percent Auto 0.4 % (0-2); Eosinophils Absolute Auto 0.2 X10*3/uL (0.0-0.4); Eosinophils Percent Auto 3.7 % (0-4); Hematocrit 33.4 % (37-47); Hemoglobin 10.3 g/dl (12.0-16.0); Imm Gran Abs Auto 0.01 X10*3/uL (0.00-0.03); Imm Gran Pct Auto 0.2 % (0.0-0.4); Lymphocytes Absolute Auto 1.1 X10*3/uL (1.2-4.9); Lymphocytes Percent Auto 22.9 % (20-40); Mean Corpuscular HGB Conc 30.8 g/dl (31.0-35.0); Mean Corpuscular Hemoglobin 25.9 pg (27.0-33.0); Mean Corpuscular Volume 84.1 fL (80-98); Mean Platelet Volume 11.8 fL (9.4-12.3); Monocytes Absolute Auto 0.3 X10*3/uL (0.1-1.2); Monocytes Percent Auto 6.5 % (2-11); Neutrophils Absolute Auto 3.3 X10*3/uL (2.0-8.3); Neutrophils Percent Auto 66.3 % (45-73); Platelet Count 237 X10*3/uL (160-400); Red Blood Count 3.97 X10*6/uL (4.20-5.50); Red Cell Distribution Width 17.9 % (11.0-16.0); White Blood Count 4.9 X10*3/uL (4.8-10.8)
--- NOTE | 2021-05-14 16:49 | PC.NURSE ---
phlebotomy unable to draw patient for pt/inr and patient states she wont allow additional blood draws
--- NOTE | 2021-05-14 17:07 | PC.NURSE ---
relayed information to Gill jovel in regards to patient and lab draws. she asked to me call unit and update them and ask power distribution engineer doc about proceeding, called unit and spoke with Carlos regarding update.
[2021-05-14] MEDS: Warfarin Sodium 2.5 MG TABLET PO (18:25)
[2021-05-14] MEDS: Warfarin Sodium 10 MG TABLET PO (18:25)
[2021-05-14] MEDS: risperiDONE 1 MG TABLET PO (21:37)
[2021-05-14] MEDS: Omeprazole 40 MG CAPSULE.DR PO (21:37)
[2021-05-14] MEDS: Montelukast Sodium 10 MG TABLET PO (21:37)
[2021-05-14] MEDS: LORazepam 1 MG TABLET PO (21:37)
[2021-05-14] MEDS: traZODone HCL 50 MG TABLET 150 MG PO (21:38)
--- NOTE | 2021-05-14 22:13 | PC.ADMIT ---
A 50 year old female was admitted to [facility] at 1940 as a CV following referral from [facility] team and [facility]. Pt self presented to [facility] ED reporting SI and depression. Pt stated in ED I am currently having thoughts to hurt myself and I am afraid to hurt someone else Pt denied thoughts to hurt anyone else during assessment, but reported by history of being afraid of what if thoughts of hurting self or others. Pt reported that has had vague thoughts without plan, but can seek help from staff. Pt reported one previous admission here on M5 many years ago. Pt has IPLOC elsewhere. Pt substance related admissions. Pt reports depressed mood and congruent affect, and poor sleep with difficulty falling asleep and frequent awakening from nightmares r/t her medical problems. Pt said is ruminative on and dying and had witnessed a a number of years ago. Pt reports recent weight gain r/t depressive symptoms and mentioned had history of anorexia. Pt denies AH/VH. Pt thinks may have PTSD and reported some history of dissociation. Pt refused blood work in ED POD prior to admission, stating she preferred blood be drawn from her port; pt refused blood work again after arrival to . Pt was cooperative during admission, but said did not want to attend any groups because her problems are different than thos of the other patients. Pt reports drinking Etoh less than monthly, 3-4 drinks; last consumption on 05/12/21. Pt denies use of substances except for recent use of marijuana to regulate her anxiety and depressive symptoms, Pt said the marijuana was not helpful and does not normally use it. Medical issues include: asthma, atrial fibrillation, CHF, DVT, HTN, IBS. Pt has an extensive list of meds to which she has allergies. Pt placed on 5-minute safety checks upon arrival, [id number]-[id number] done, admission orders obtained and treatment plan initiated. Pt is resting in room at this time.
[2021-05-14 23:38] VITALS: PULSE 90; O2SAT 97
[2021-05-14] MEDS: Albuterol/Iprat 2.5/0.5MG 3 ML AMPUL.NEB INHALE (23:38)
[2021-05-14 23:54] VITALS: BP 117/81; PULSE 120; O2SAT 98
--- NOTE | 2021-05-15 08:00 | ECG_ITS ---
Test Reason : QTC CHECK Blood Pressure : / mmHG Vent. Rate : 076 BPM Atrial Rate : 076 BPM P-R Int : 174 ms QRS Dur : 074 ms QT Int : 416 ms P-R-T Axes : 044 004 050 degrees QTc Int : 468 ms Normal sinus rhythm Low voltage QRS Cannot rule out old anterior infarct but could be from lead placement or body habitus Abnormal ECG When compared with ECG of 13-MAY-2021 10:53, No significant change was found Referred By: Chayo Contreras Electronically Signed By:AUTUMN BALLARD
[2021-05-15 08:53] VITALS: BP 122/68; PULSE 88
[2021-05-15] MEDS: dilTIAZem HCL CD 180 MG CAP.ER.24H PO (08:53)
[2021-05-15] MEDS: Escitalopram Oxalate 10 MG TABLET PO (08:54)
[2021-05-15 09:45] VITALS: BP 122/68; PULSE 88; RESP 20; TEMP 36.9; O2SAT 98
--- NOTE | 2021-05-15 10:36 | P.HPPS_ITS ---
HPI Chief Complaint: Suicidal ideation HPI Subjective Notes: [place] Warning and 3 Day Narrative: Ms. Taylor is a 50 year-old woman with hx of MDD, multiple medical comorbidities including asthma, CHF, anemia (of unclear source but apparently it may be GI), DVT on coumadin who initially presented to [facility] with c/o of asthma exacerbation. While in the ED, pt expressed suicidal ideation in context of worsening medical conditions. She denied any plan or intent to hurt herself. In the ED, her utox was negative. She did receive blood transfusion as Hgb (8.7)/Hct (28.5). On the unit, pt reports feeling tired, with SOB (although O 2 sat 100%), she reported that suicidal thoughts had faded but she states that she was frustrated as they did not give her enough medical attention while in the ED. She reports that usually she receives a combination of glucocortisode, nebulizer treatment and ketamine. She makes emphasis on ketamine being helpful for her asthma attacks and also her mood, as she feels much calmer afterwards. She had incident while in unit where pt presented out of breath, despite nebulizer treatments, rapid response was called. Dr. Dow evaluated pt- clear lungs, O2 sat 100%. Pt denied anxious mood and insisted this is the calmest I felt in days. She continues to report that medical staff were ignoring her medical condition. She insisted on ketamine treatment, which at time it was not recommeded by medical team. Pt on the unit adamantly denied suicidal or homicidal ideatino. She denies hx of VH/AH. She reports sleep is fair. She does report worrying about her health and this taking toll on her mental health. However, she signed 3 day noticed as she reported she was safe going back home. Collateral information was gathered from the - who reports they have been together for 35 years. reports increase anxiety with current medical conditions but denied any safety concerns. Medical Evaluation Reviewed: Yes Chronic anemia- unclear source most likely GI, on coumadin for DVT prevention w hich worsens bleeding. Monitor CBC with dif. On Coumadin- monitor INR/PT, aPPT. Asthma- no signs of pneumonia or infection source [facility] Medical History (Updated 05/17/21 @ 10:56 by Mayuri Schmidt) Anxiety Asthma Atrial fibrillation CHF (congestive heart failure) Depression DVT (deep venous thrombosis) Hypertension Irritable bowel Morbid obesity Family History: denies Social History: lives with and two sons ages 28 and 22. Reports is supportive as well as sons. No working on disability since . Substance History: denies Trauma History: of mother Diagnostics Vital Signs (24Hr): Vital Signs - 24 hr 05/16/21 18:00 05/17/21 08:34 Temperature 97 F Pulse Rate 78 Respiratory Rate 16 Blood Pressure 140/84 H 113/82 Pulse Oximetry 98 Body Mass Index 43.0 Labs Results: 05/16/21 15:32 05/13/21 11:47 Labs: Laboratory Results - last 48 hr 05/16/21 05/16/21 15:32 15:32 WBC 5.2 RBC 3.68 L Hgb 9.8 L Hct 31.2 L MCV 84.8 MCH 26.6 L MCHC 31.4 RDW 17.6 H Plt Count 235 MPV 12.1 Immature Gran % (Auto) 0.2 Neut % (Auto) 67.0 Lymph % (Auto) 18.4 L [place] % (Auto) 9.1 Eos % (Auto) 4.9 H Baso % (Auto) 0.4 Lymph # (Auto) 1.0 L [place] # (Auto) 0.5 Eos # (Auto) 0.3 Baso # (Auto) 0.0 Abs Immat Gran (auto) 0.01 Absolute Neuts (auto) 3.5 Absolute Nucleated RBC 0.000 Nucleated RBC % (auto) 0.0 PT 25.0 H INR 2.2 H APTT 44.1 H D EKG EKG: reviewed Imaging Radiology Impressions: ITS Impressions Chest X-Ray 05/13/21 09:52 IMPRESSION: No acute disease. Meds/Allergies Meds Home Medications Acetaminophen (Acetaminophen 325 Mg Tablet) 650 mg PO Q6H PRN PRN Reason: Headache/Pain Mild Scale (1-3) Al Hydroxide/Mg Hydroxide (Magnesium Hydrox/Alum Hydrox 30 Ml Oral.Susp) 30 ml PO Q6H PRN PRN Reason: Heartburn/Nausea Albuterol Sulfate (Albuterol Sulfate 90 Mcg 8 Gm Inhaler) 2 puff INHALE RQ4H PRN PRN Reason: Shortness of Breath Last Admin: 05/17/21 08:54 Dose: 2 puff Documented by: Albuterol/Ipratropium (Albuterol/Iprat 2.5/0.5mg 3 Ml Ampul.Neb) 3 ml INHALE Q6H PRN PRN Reason: Wheezing Last Admin: 05/15/21 12:30 Dose: 3 ml Documented by: Diltiazem HCl (Diltiazem Hcl Cd 180 Mg Cap.Er.24h) 180 mg PO DAILY [facility]; Protocol Last Admin: 05/17/21 08:34 Dose: 180 mg Documented by: Escitalopram Oxalate (Escitalopram Oxalate 10 Mg Tablet) 10 mg PO DAILY [facility] Last Admin: 05/17/21 08:35 Dose: 10 mg Documented by: Hydroxyzine HCl (Hydroxyzine Hcl 25 Mg Tablet) 25 mg PO BEDTIME PRN PRN Reason: Anxiety Last Admin: 05/16/21 21:23 Dose: 25 mg Documented by: Lorazepam (Lorazepam 1 Mg Tablet) 1 mg PO Q4H PRN PRN Reason: anxiety/restlessness Last Admin: 05/17/21 08:53 Dose: 1 mg Documented by: Magnesium Hydroxide (Milk Of Magnesia 30 Ml Oral.Susp) 30 ml PO DAILY PRN PRN Reason: Constipation Montelukast Sodium (Montelukast Sodium 10 Mg Tablet) 10 mg PO BEDTIME [facility] Last Admin: 05/16/21 21:23 Dose: 10 mg Documented by: Omeprazole (Omeprazole 40 Mg Capsule.Dr) 40 mg PO BEDTIME [facility] Last Admin: 05/16/21 21:23 Dose: 40 mg Documented by: Risperidone (Risperidone 1 Mg Tablet) 1 mg PO BEDTIME [facility] Last Admin: 05/16/21 21:23 Dose: 1 mg Documented by: Trazodone HCl (Trazodone Hcl 50 Mg Tablet) 150 mg PO BEDTIME [facility] Last Admin: 05/16/21 21:23 Dose: 150 mg Documented by: Trazodone HCl (Trazodone Hcl 50 Mg Tablet) 50 mg PO BEDTIME PRN PRN Reason: Insomnia Last Admin: 05/16/21 23:41 Dose: 50 mg Documented by: Warfarin Sodium (Warfarin Sodium 10 Mg Tablet) 10 mg PO DAILY@1800 [facility] Last Admin: 05/16/21 20:00 Dose: 10 mg Documented by: Warfarin Sodium (Warfarin Sodium 2.5 Mg Tablet) 2.5 mg PO MOWEFRSA@1800 [facility] Last Admin: 05/16/21 20:00 Dose: 2.5 mg Documented by: Allergies Allergies Allergy/AdvReac Type Severity Reaction Status Date / Time azithromycin Allergy Intermediate ITCHING Verified 03/06/21 20:19 [From ZITHROMAX Z-XANDER] amoxicillin [AMOXICILLIN] Allergy Unknown UNKNOWN, Verified 03/06/21 20:19 hives, swelling budesonide [From SYMBICORT] Allergy Unknown UNKNOWN Verified 03/06/21 20:19 cefpodoxime [From VANTIN] Allergy Unknown UNKNOWN Verified 03/06/21 20:19 cefuroxime [From CEFTIN] Allergy Unknown UNKNOWN Verified 03/06/21 20:19 Cephalosporins Allergy Unknown UNKNOWN Verified 03/06/21 20:19 [CEPHALOSPORINS] ciprofloxacin [From CIPRO] Allergy Unknown UNKNOWN Verified 03/06/21 20:19 diphtheria,pertussis Allergy Unknown Unknown Verified 03/06/21 20:19 (acellular),te [Adacel(Tdap Adolesn/Adult)(PF)] erythromycin base Allergy Unknown UNKNOWN Verified 03/06/21 20:19 [ERYTHROMYCIN BASE] fluticasone [Advair Diskus] Allergy Unknown Unknown Verified 03/06/21 20:19 formoterol [From SYMBICORT] Allergy Unknown UNKNOWN Verified 03/06/21 20:19 hydrocodone [From VICODIN] Allergy Unknown unknown Verified 03/06/21 20:19 Iodinated Contrast Media Allergy Unknown UNKNOWN Verified 03/06/21 20:19 [CONTRAST, IV] levofloxacin [From LEVAQUIN] Allergy Unknown UNKNOWN Verified 03/06/21 20:19 penicillin G Allergy Unknown Unknown Verified 03/06/21 20:19 penicillin V Allergy Unknown Unknown Verified 03/06/21 20:19 Penicillins [PENICILLINS] Allergy Unknown UNKNOWN Verified 03/06/21 20:19 salmeterol [Advair Diskus] Allergy Unknown Unknown Verified 03/06/21 20:19 sertraline [From ZOLOFT] Allergy Unknown SUICIDAL Verified 03/06/21 20:19 Sulfa (Sulfonamide Allergy Unknown hives Verified 03/06/21 20:19 Antibiotics) tetanus and diphtheria Allergy Unknown UNKNOWN Verified 03/06/21 20:19 toxoids [TETANUS & DIPHTHERIA TOXOIDS] Vantin Allergy Unknown Unknown Verified 03/06/21 20:19 ketorolac [From TORADOL] AdvReac Mild ITCHING Verified 03/06/21 20:19 Ceftin Allergy Unknown Unknown Uncoded 03/06/21 20:19 IV dye Allergy Unknown Unknown Uncoded 03/06/21 20:19 Symbicort Allergy Unknown Unknown Uncoded 03/06/21 20:19 Tetanus Allergy Unknown Unknown Uncoded 03/06/21 20:19 Erythromycin Allergy Unknown Uncoded 03/06/21 20:19 Mental Status Exam Mental Status Exam Narrative: Appearance: MO, casually groomed, fair hygiene, coughing but able to talk without getting out of breath Behavior:calm, somewhat guarded at first psychomotor: no agitation or retardation noted Speech:clear, normal rate/rhythm/volume, spontaneous Thought process:linear Thought content:no signs of psychosis, somatically preoccupied, feeling ignored and unheard by providers and family alike Mood: calm Affect:guarded SI:none HI:none VH/AH:none Delusions:none Memory/cog: alert, oriented x 3. grossly intact to conversational testing. Assessment & Plan Assessment & Plan (1) MDD (major depressive disorder), recurrent episode, moderate: Status: Acute Code(s): F33.1 - Major depressive disorder, recurrent, moderate Assessment and Plan: Mrs. Taylor is a 50 year-old woman w hx of MDD, multiple complex medical conditions including CHF, hx of DVT, afib, anemia (apparently GI) who expressed suicidal ideation while in [facility] initially presented for asthma exacerbation, found to have Hgb 8.7, received transfusion. She has not had psychiatric admission since 2014. She is somatically preoccupied with thoughts of others ignoring her concerns despite medical reassurance by medical providers. On the unit, she adamantly denies suicidal ideation and signed a 3 day notice. Family have no safety concern at the time. 1. continue lexapro 2. continue ativan 3. pt interested in ketamine treatments for depression 4. obtain collateral information 5. aftercare planning (2) Atrial fibrillation: Status: Acute Code(s): I48.91 - Unspecified atrial fibrillation (3) DVT (deep venous thrombosis): Status: Acute Code(s): I82.409 - Acute embolism and thrombosis of unspecified deep veins of unspecified lower extremity (4) Asthma: Status: Acute Code(s): J45.909 - Unspecified asthma, uncomplicated (5) CHF (congestive heart failure): Status: Acute Code(s): I50.9 - Heart failure, unspecified (6) Acute exacerbation of chronic obstructive airways disease: Status: Acute Code(s): J44.1 - Chronic obstructive pulmonary disease with (acute) exacerbation Reason for continued inpatient stay Substantial Risk for: harm to self
[2021-05-15] MEDS: Albuterol/Iprat 2.5/0.5MG 3 ML AMPUL.NEB INHALE (12:30)
[2021-05-15] MEDS: LORazepam 1 MG TABLET PO (12:56)
[2021-05-15] MEDS: Warfarin Sodium 10 MG TABLET PO (17:11)
[2021-05-15 17:23] VITALS: BP 124/59; PULSE 94; TEMP 36.6; O2SAT 99
[2021-05-15] MEDS: Montelukast Sodium 10 MG TABLET PO (20:59)
[2021-05-15] MEDS: traZODone HCL 50 MG TABLET 150 MG PO (20:59)
[2021-05-15] MEDS: risperiDONE 1 MG TABLET PO (20:59)
[2021-05-15] MEDS: hydrOXYzine HCL 25 MG TABLET PO (20:59)
[2021-05-15] MEDS: Omeprazole 40 MG CAPSULE.DR PO (20:59)
[2021-05-16 06:42] VITALS: BP 136/63; PULSE 83; TEMP 36.1; O2SAT 93
[2021-05-16 08:36] VITALS: BP 128/74; PULSE 101
[2021-05-16] MEDS: dilTIAZem HCL CD 180 MG CAP.ER.24H PO (08:36)
[2021-05-16] MEDS: Albuterol Sulfate 90 MCG 8 GM INHALER 2 PUFF INHALE ×2 (08:36→23:40)
[2021-05-16] MEDS: Escitalopram Oxalate 10 MG TABLET PO (08:37)
--- NOTE | 2021-05-16 11:02 | HO.PSYCHPN ---
Subjective Subjective Date of Service: 05/17/21 Reason For Visit: Suicidal ideation Subjective Notes: 3 Day (05/17/21) Interim History: Pt presents as much calmer although preoccupied with somatic complaints. Pt continues to denied suicidal or homicidal ideation. She reports fair sleep- due for new sleep study, may need CPAP. Pt reports she is looking forward to go home but interested in ketamine treatment for depression, as she thinks it will also have medical benefit for asthma. Although she denies anxiety and states this is calmer she's been in days asks if this creative services writer can given her ativan. Medication Compliance: Yes Side effects from medications: No Attending Groups: Intermittent Review of Systems Review of Systems Yes all other systems are reviewed and are negative Constitutional: Reports as per HPI and Reports no additional constitutional complaints Eyes: Reports as per HPI, Reports no additional eye complaints, Denies blurry vision, Denies diplopia and Denies photophobia Reports system reviewed and no additional complaints, except as documented and Reports as per HPI Cardiovascular: Reports as per HPI, Reports no additional cardiovascular complaints, Denies chest pain and Reports dyspnea Respiratory: Reports as per HPI, Reports no additional respiratory complaints, Reports cough and Reports dyspnea Gastrointestinal: Reports as per HPI and Reports no additional gastrointestinal complaints Musculoskeletal: Denies no additional musculoskeletal complaints and Reports as per HPI Skin/Breast: Reports system reviewed and no additional complaints, except as docu and Reports as per HPI Reports system reviewed and no additional complaints, except as documented and Reports as per HPI Psychiatric: Reports no additional psychiatric complaints, Reports as per HPI, Reports depression and Reports suicidal ideation Mental Status Exam Mental Status Exam Narrative: Appearance: MO, casually groomed, fair hygiene, coughing but able to talk without getting out of breath Behavior:superficially cooperative, somewhat guarded at first psychomotor: no agitation or retardation noted Speech:clear, normal rate/rhythm/volume, spontaneous Thought process:linear Thought content:no signs of psychosis, somatically preoccupied, feeling ignored and unheard by providers and family alike Mood: calm Affect:guarded SI:none HI:none VH/AH:none Delusions:none Memory/cog: alert, oriented x 3. grossly intact to conversational testing. Diagnostics Vital Signs (24Hr): Vital Signs - 24 hr 05/16/21 18:00 05/17/21 08:34 Temperature 97 F Pulse Rate 78 Respiratory Rate 16 Blood Pressure 140/84 H 113/82 Pulse Oximetry 98 Body Mass Index 43.0 Labs Results: 05/16/21 15:32 05/13/21 11:47 Labs: Laboratory Results - last 48 hr 05/16/21 05/16/21 15:32 15:32 WBC 5.2 RBC 3.68 L Hgb 9.8 L Hct 31.2 L MCV 84.8 MCH 26.6 L MCHC 31.4 RDW 17.6 H Plt Count 235 MPV 12.1 Immature Gran % (Auto) 0.2 Neut % (Auto) 67.0 Lymph % (Auto) 18.4 L [place] % (Auto) 9.1 Eos % (Auto) 4.9 H Baso % (Auto) 0.4 Lymph # (Auto) 1.0 L [place] # (Auto) 0.5 Eos # (Auto) 0.3 Baso # (Auto) 0.0 Abs Immat Gran (auto) 0.01 Absolute Neuts (auto) 3.5 Absolute Nucleated RBC 0.000 Nucleated RBC % (auto) 0.0 PT 25.0 H INR 2.2 H APTT 44.1 H D Imaging Radiology Impressions: ITS Impressions Chest X-Ray 05/13/21 09:52 IMPRESSION: No acute disease. Medications Medications Current Medications Generic Name Dose Route Start Last Admin Trade Name Freq PRN Reason Stop Dose Admin Acetaminophen 650 mg 05/14/21 18:32 Acetaminophen 325 Mg Tablet PO Q6H PRN Headache/Pain Mild Scale (1-3) Al Hydroxide/Mg Hydroxide 30 ml 05/14/21 18:32 Magnesium Hydrox/Alum Hydrox 30 Ml Oral.Susp PO Q6H PRN Heartburn/Nausea Albuterol Sulfate 2 puff 05/15/21 12:19 05/17/21 08:54 Albuterol Sulfate 90 Mcg 8 Gm Inhaler INHALE 2 puff RQ4H PRN Administration Shortness of Breath Albuterol/Ipratropium 3 ml 05/13/21 22:05 05/15/21 12:30 Albuterol/Iprat 2.5/0.5mg 3 Ml Ampul.Neb INHALE 3 ml Q6H PRN Administration Wheezing Diltiazem HCl 180 mg 05/14/21 09:00 05/17/21 08:34 Diltiazem Hcl Cd 180 Mg Cap.Er.24h PO 180 mg DAILY [facility] Administration Protocol Escitalopram Oxalate 10 mg 05/13/21 22:15 05/17/21 08:35 Escitalopram Oxalate 10 Mg Tablet PO 10 mg DAILY [facility] Administration Hydroxyzine HCl 25 mg 05/14/21 18:32 05/16/21 21:23 Hydroxyzine Hcl 25 Mg Tablet PO 25 mg BEDTIME PRN Administration Anxiety Lorazepam 1 mg 05/14/21 18:36 05/17/21 08:53 Lorazepam 1 Mg Tablet PO 1 mg Q4H PRN Administration anxiety/restlessness Magnesium Hydroxide 30 ml 05/14/21 18:32 Milk Of Magnesia 30 Ml Oral.Susp PO DAILY PRN Constipation Montelukast Sodium 10 mg 05/13/21 22:15 05/16/21 21:23 Montelukast Sodium 10 Mg Tablet PO 10 mg BEDTIME [facility] Administration Omeprazole 40 mg 05/13/21 22:15 05/16/21 21:23 Omeprazole 40 Mg Capsule.Dr PO 40 mg BEDTIME [facility] Administration Risperidone 1 mg 05/14/21 21:00 05/16/21 21:23 Risperidone 1 Mg Tablet PO 1 mg BEDTIME [facility] Administration Trazodone HCl 150 mg 05/13/21 22:15 05/16/21 21:23 Trazodone Hcl 50 Mg Tablet PO 150 mg BEDTIME [facility] Administration Trazodone HCl 50 mg 05/14/21 18:32 05/16/21 23:41 Trazodone Hcl 50 Mg Tablet PO 50 mg BEDTIME PRN Administration Insomnia Warfarin Sodium 10 mg 05/14/21 17:45 05/16/21 20:00 Warfarin Sodium 10 Mg Tablet PO 10 mg DAILY@1800 [facility] Administration Warfarin Sodium 2.5 mg 05/14/21 18:00 05/16/21 20:00 Warfarin Sodium 2.5 Mg Tablet PO 2.5 mg MOWEFRSA@1800 [facility] Administration Allergies Allergies Allergy/AdvReac Type Severity Reaction Status Date / Time azithromycin Allergy Intermediate ITCHING Verified 03/06/21 20:19 [From ZITHROMAX Z-XANDER] amoxicillin [AMOXICILLIN] Allergy Unknown UNKNOWN, Verified 03/06/21 20:19 hives, swelling budesonide [From SYMBICORT] Allergy Unknown UNKNOWN Verified 03/06/21 20:19 cefpodoxime [From VANTIN] Allergy Unknown UNKNOWN Verified 03/06/21 20:19 cefuroxime [From CEFTIN] Allergy Unknown UNKNOWN Verified 03/06/21 20:19 Cephalosporins Allergy Unknown UNKNOWN Verified 03/06/21 20:19 [CEPHALOSPORINS] ciprofloxacin [From CIPRO] Allergy Unknown UNKNOWN Verified 03/06/21 20:19 diphtheria,pertussis Allergy Unknown Unknown Verified 03/06/21 20:19 (acellular),te [Adacel(Tdap Adolesn/Adult)(PF)] erythromycin base Allergy Unknown UNKNOWN Verified 03/06/21 20:19 [ERYTHROMYCIN BASE] fluticasone [Advair Diskus] Allergy Unknown Unknown Verified 03/06/21 20:19 formoterol [From SYMBICORT] Allergy Unknown UNKNOWN Verified 03/06/21 20:19 hydrocodone [From VICODIN] Allergy Unknown unknown Verified 03/06/21 20:19 Iodinated Contrast Media Allergy Unknown UNKNOWN Verified 03/06/21 20:19 [CONTRAST, IV] levofloxacin [From LEVAQUIN] Allergy Unknown UNKNOWN Verified 03/06/21 20:19 penicillin G Allergy Unknown Unknown Verified 03/06/21 20:19 penicillin V Allergy Unknown Unknown Verified 03/06/21 20:19 Penicillins [PENICILLINS] Allergy Unknown UNKNOWN Verified 03/06/21 20:19 salmeterol [Advair Diskus] Allergy Unknown Unknown Verified 03/06/21 20:19 sertraline [From ZOLOFT] Allergy Unknown SUICIDAL Verified 03/06/21 20:19 Sulfa (Sulfonamide Allergy Unknown hives Verified 03/06/21 20:19 Antibiotics) tetanus and diphtheria Allergy Unknown UNKNOWN Verified 03/06/21 20:19 toxoids [TETANUS & DIPHTHERIA TOXOIDS] Vantin Allergy Unknown Unknown Verified 03/06/21 20:19 ketorolac [From TORADOL] AdvReac Mild ITCHING Verified 03/06/21 20:19 Ceftin Allergy Unknown Unknown Uncoded 03/06/21 20:19 IV dye Allergy Unknown Unknown Uncoded 03/06/21 20:19 Symbicort Allergy Unknown Unknown Uncoded 03/06/21 20:19 Tetanus Allergy Unknown Unknown Uncoded 03/06/21 20:19 Erythromycin Allergy Unknown Uncoded 03/06/21 20:19 Assessment & Plan Assessment & Plan (1) MDD (major depressive disorder), recurrent episode, moderate: Status: Acute Code(s): F33.1 - Major depressive disorder, recurrent, moderate Assessment and Plan: Mrs. Tyalor is a 50 year-old woman w hx of MDD, multiple complex medical conditions including CHF, hx of DVT, afib, anemia (apparently GI) who expressed suicidal ideation while in [facility] initially presented for asthma exacerbation, found to have Hgb 8.7, received transfusion. She has not had psychiatric admission since 2015. She is somatically preoccupied with thoughts of others ignoring her concerns despite medical reassurance by medical providers. On the unit, she adamantly denies suicidal ideation and signed a 3 day notice. Family have no safety concern at the time. 1. continue lexapro 2. continue ativan 3. pt interested in ketamine treatments for depression 4. obtain collateral information 5. aftercare planning (2) Atrial fibrillation: Status: Acute Code(s): I48.91 - Unspecified atrial fibrillation (3) DVT (deep venous thrombosis): Status: Acute Code(s): I82.409 - Acute embolism and thrombosis of unspecified deep veins of unspecified lower extremity (4) Asthma: Status: Acute Code(s): J45.909 - Unspecified asthma, uncomplicated (5) CHF (congestive heart failure): Status: Acute Code(s): I50.9 - Heart failure, unspecified (6) Acute exacerbation of chronic obstructive airways disease: Status: Acute Code(s): J44.1 - Chronic obstructive pulmonary disease with (acute) exacerbation Greater than 50% of the session was spent on counseling and/or coordination of care Reason for contiued inpatient stay Substantial Risk for: stable for discharge
[2021-05-16] MEDS: LORazepam 1 MG TABLET PO ×2 (13:19→21:23)
[2021-05-16 16:28] LABS: Basophils Percent Auto 0.4 % (0-2); Eosinophils Absolute Auto 0.3 X10*3/uL (0.0-0.4); Eosinophils Percent Auto 4.9 % (0-4); Hematocrit 31.2 % (37-47); Hemoglobin 9.8 g/dl (12.0-16.0); Imm Gran Abs Auto 0.01 X10*3/uL (0.00-0.03); Imm Gran Pct Auto 0.2 % (0.0-0.4); Lymphocytes Percent Auto 18.4 % (20-40); MANUAL DIFF FLAG NO; Mean Corpuscular HGB Conc 31.4 g/dl (31.0-35.0); Mean Corpuscular Hemoglobin 26.6 pg (27.0-33.0); Mean Corpuscular Volume 84.8 fL (80-98); Mean Platelet Volume 12.1 fL (9.4-12.3); Monocytes Absolute Auto 0.5 X10*3/uL (0.1-1.2); Monocytes Percent Auto 9.1 % (2-11); Neutrophils Absolute Auto 3.5 X10*3/uL (2.0-8.3); Platelet Count 235 X10*3/uL (160-400); Red Blood Count 3.68 X10*6/uL (4.20-5.50); Red Cell Distribution Width 17.6 % (11.0-16.0); White Blood Count 5.2 X10*3/uL (4.8-10.8)
[2021-05-16 16:41] LABS: INTERNATIONAL NORM RATIO 2.2 (0.9-1.1)
[2021-05-16 16:44] LABS: Partial Thromboplastin Time 44.1 SEC (24.1-38.0)
[2021-05-16 18:00] VITALS: BP 140/84; PULSE 78; RESP 16; TEMP 36.1; O2SAT 98
[2021-05-16] MEDS: Warfarin Sodium 2.5 MG TABLET PO (20:00)
[2021-05-16] MEDS: Warfarin Sodium 10 MG TABLET PO (20:00)
--- NOTE | 2021-05-16 20:04 | PC.NURSE ---
Patient relayed to this nurse concerns re latest labs and fears of needing a blood transfusion. Patient reports feeling fatigued and shortness of breath. VS stable @ this time, respirations even and unlabored, O2 sat 98%. Spoke w/ Dr. Contreras , no new orders at this time.
[2021-05-16] MEDS: Omeprazole 40 MG CAPSULE.DR PO (21:23)
[2021-05-16] MEDS: traZODone HCL 50 MG TABLET 150 MG PO (21:23)
[2021-05-16] MEDS: hydrOXYzine HCL 25 MG TABLET PO (21:23)
[2021-05-16] MEDS: risperiDONE 1 MG TABLET PO (21:23)
[2021-05-16] MEDS: Montelukast Sodium 10 MG TABLET PO (21:23)
[2021-05-16] MEDS: traZODone HCL 50 MG TABLET PO (23:41)
[2021-05-17 08:34] VITALS: BP 113/82
[2021-05-17] MEDS: dilTIAZem HCL CD 180 MG CAP.ER.24H PO (08:34)
[2021-05-17] MEDS: Escitalopram Oxalate 10 MG TABLET PO (08:35)
[2021-05-17] MEDS: LORazepam 1 MG TABLET PO (08:53)
[2021-05-17] MEDS: Albuterol Sulfate 90 MCG 8 GM INHALER 2 PUFF INHALE (08:54)
[2021-05-17 10:41] LABS: MANUAL DIFF FLAG NO
[2021-05-17 10:45] LABS: Basophils Percent Auto 0.2 % (0-2); Eosinophils Absolute Auto 0.2 X10*3/uL (0.0-0.4); Eosinophils Percent Auto 3.3 % (0-4); Hematocrit 30.8 % (37-47); Hemoglobin 9.5 g/dl (12.0-16.0); Imm Gran Abs Auto 0.01 X10*3/uL (0.00-0.03); Imm Gran Pct Auto 0.2 % (0.0-0.4); Lymphocytes Absolute Auto 0.9 X10*3/uL (1.2-4.9); Lymphocytes Percent Auto 20.7 % (20-40); Mean Corpuscular HGB Conc 30.8 g/dl (31.0-35.0); Mean Corpuscular Volume 84.2 fL (80-98); Mean Platelet Volume 12.4 fL (9.4-12.3); Monocytes Absolute Auto 0.4 X10*3/uL (0.1-1.2); Neutrophils Percent Auto 66.6 % (45-73); Platelet Count 210 X10*3/uL (160-400); Red Blood Count 3.66 X10*6/uL (4.20-5.50); Red Cell Distribution Width 17.3 % (11.0-16.0); White Blood Count 4.6 X10*3/uL (4.8-10.8)
--- NOTE | 2021-05-17 11:16 | P.DS_ITS ---
DS: Providers Provider Date of Service: 04/17/21 Date of admission: 05/14/21 18:32 Date of discharge: 05/17/21 Primary care physician: Unknown Physician Attending physician on discharge: Mayuri Schmidt DS: Diagnosis Discharge Diagnosis (1) MDD (major depressive disorder), recurrent episode, moderate: Status: Acute (2) Atrial fibrillation: Status: Acute (3) DVT (deep venous thrombosis): Status: Acute (4) Asthma: Status: Acute (5) CHF (congestive heart failure): Status: Acute (6) Acute exacerbation of chronic obstructive airways disease: Status: Acute DS: Medications Discharge Medications Home Medications: Home Medications Medication Instructions Recorded Confirmed diltiazem HCl 180 mg capsule,24 180 mg PO DAILY 09/03/20 05/13/21 hr,extended release montelukast 10 mg tablet 10 mg PO BEDTIME 09/03/20 05/13/21 trazodone 100 mg tablet 150 mg PO BEDTIME 09/03/20 05/13/21 omeprazole 40 mg capsule,delayed 40 mg PO BEDTIME 02/16/21 05/13/21 release warfarin 10 mg tablet 10 mg PO SUTUTH@1800 03/06/21 05/13/21 fluticasone fur. 100 mcg-umeclid 1 puff PO DAILY 03/08/21 05/13/21 62.5 mcg-vilant 25 mcg inhalat.powder (Trelegy Ellipta) ipratropium 0.5 mg-albuterol 3 mg 3 ml INHALATION Q6H PRN 03/08/21 05/13/21 (2.5 mg base)/3 mL nebulization soln escitalopram oxalate 10 mg tablet 1 tab PO QAM 05/13/21 05/13/21 risperidone 1 mg tablet (Risperdal) 1 mg PO BEDTIME 05/13/21 05/13/21 warfarin 5 mg tablet 12.5 mg PO MOWEFRSA@1800 05/13/21 05/13/21 Previous Rx's Medication Instructions Recorded albuterol sulfate 90 mcg/actuation 2 puff INHALATION RQ4H PRN #6.7 g 05/17/21 aerosol inhaler (Ventolin HFA) Mental Status Exam Mental Status Exam Narrative: Appearance: MO, casually groomed, fair hygiene, coughing but able to talk without getting out of breath Behavior:superficially cooperative, somewhat guarded at first psychomotor: no agitation or retardation noted Speech:clear, normal rate/rhythm/volume, spontaneous Thought process:linear Thought content:no signs of psychosis, somatically preoccupied, feeling ignored and unheard by providers and family alike Mood: calm Affect:guarded SI:none HI:none VH/AH:none Delusions:none Memory/cog: alert, oriented x 3. grossly intact to conversational testing. Data Data Completed and Pending Completed studies during hospitalization [Text1]: 05/13/21 05/13/21 05/13/21 10:33 10:33 10:33 WBC RBC Hgb Hct MCV MCH MCHC RDW Plt Count MPV Immature Gran % (Auto) Neut % (Auto) Lymph % (Auto) [place] % (Auto) Eos % (Auto) Baso % (Auto) Lymph # (Auto) [place] # (Auto) Eos # (Auto) Baso # (Auto) Abs Immat Gran (auto) Absolute Neuts (auto) Absolute Nucleated RBC Nucleated RBC % (auto) PT INR APTT Sodium Potassium Chloride Carbon Dioxide Anion Gap BUN Creatinine Estim Creat Clear Calc Estimated GFR Random Glucose Calcium Total Bilirubin AST ALT Alkaline Phosphatase Troponin I High Sens B-Natriuretic Peptide Total Protein Albumin Beta HCG, Quant Urine Color YELLOW Urine Appearance CLEAR Urine pH 7.0 Ur Specific [place] 1.010 Urine Protein NEG Urine Glucose (UA) NEG Urine Ketones NEG Urine Blood NEG Urine Nitrite NEG Ur Leukocyte Esterase NEG Urine Opiates Screen Not Detected Ur Barbiturates Screen Not Detected Ur Phencyclidine Scrn Not Detected Ur Amphetamines Screen Not Detected U Benzodiazepines Scrn Not Detected Urine Cocaine Screen Not Detected U Marijuana (THC) Screen Not Detected COVID-19 (ELYSE) Cancelled COVID-19 Clin Com Cancelled Blood Type Antibody Screen 05/13/21 05/13/21 05/13/21 11:14 11:47 11:47 WBC 4.8 RBC 3.49 L Hgb 9.1 L Hct 29.2 L MCV 83.7 MCH 26.1 L MCHC 31.2 RDW 17.8 H Plt Count 205 MPV 11.0 Immature Gran % (Auto) 0.4 Neut % (Auto) 70.4 Lymph % (Auto) 18.3 L [place] % (Auto) 6.5 Eos % (Auto) 3.8 Baso % (Auto) 0.6 Lymph # (Auto) 0.9 L [place] # (Auto) 0.3 Eos # (Auto) 0.2 Baso # (Auto) 0.0 Abs Immat Gran (auto) 0.02 Absolute Neuts (auto) 3.4 Absolute Nucleated RBC 0.000 Nucleated RBC % (auto) 0.0 PT 23.5 H INR 2.0 H APTT > 200.0 H* Sodium Potassium Chloride Carbon Dioxide Anion Gap BUN Creatinine Estim Creat Clear Calc Estimated GFR Random Glucose Calcium Total Bilirubin AST ALT Alkaline Phosphatase Troponin I High Sens B-Natriuretic Peptide Total Protein Albumin Beta HCG, Quant Urine Color Urine Appearance Urine pH Ur Specific [place] Urine Protein Urine Glucose (UA) Urine Ketones Urine Blood Urine Nitrite Ur Leukocyte Esterase Urine Opiates Screen Ur Barbiturates Screen Ur Phencyclidine Scrn Ur Amphetamines Screen U Benzodiazepines Scrn Urine Cocaine Screen U Marijuana (THC) Screen COVID-19 (ELYSE) Negative COVID-[place] Com See Note Blood Type Antibody Screen 05/13/21 05/13/21 05/13/21 11:47 11:47 11:55 WBC RBC Hgb Hct MCV MCH MCHC RDW Plt Count MPV Immature Gran % (Auto) Neut % (Auto) Lymph % (Auto) [place] % (Auto) Eos % (Auto) Baso % (Auto) Lymph # (Auto) [place] # (Auto) Eos # (Auto) Baso # (Auto) Abs Immat Gran (auto) Absolute Neuts (auto) Absolute Nucleated RBC Nucleated RBC % (auto) PT INR APTT Sodium 141 Potassium 4.3 Chloride 110 H Carbon Dioxide 22 Anion Gap 13 BUN 11 Creatinine 0.80 Estim Creat Clear Calc 88.2 Estimated GFR > 60 Random Glucose 116 H Calcium 9.2 Total Bilirubin 0.3 AST 18 ALT 17 Alkaline Phosphatase 78 Troponin I High Sens < 3.5 B-Natriuretic Peptide 27 Total Protein 6.1 L Albumin 4.0 Beta HCG, Quant < 2 Urine Color Urine Appearance Urine pH Ur Specific [place] Urine Protein Urine Glucose (UA) Urine Ketones Urine Blood Urine Nitrite Ur Leukocyte Esterase Urine Opiates Screen Ur Barbiturates Screen Ur Phencyclidine Scrn Ur Amphetamines Screen U Benzodiazepines Scrn Urine Cocaine Screen U Marijuana (THC) Screen COVID-19 (ELYSE) COVID-19 [facility] Com Blood Type O Positive Antibody Screen NEGATIVE 05/13/21 05/14/21 05/16/21 13:33 15:12 15:32 WBC 4.9 RBC 3.97 L Hgb 10.3 L Hct 33.4 L MCV 84.1 MCH 25.9 L MCHC 30.8 L RDW 17.9 H Plt Count 237 MPV 11.8 Immature Gran % (Auto) 0.2 Neut % (Auto) 66.3 Lymph % (Auto) 22.9 [place] % (Auto) 6.5 Eos % (Auto) 3.7 Baso % (Auto) 0.4 Lymph # (Auto) 1.1 L [place] # (Auto) 0.3 Eos # (Auto) 0.2 Baso # (Auto) 0.0 Abs Immat Gran (auto) 0.01 Absolute Neuts (auto) 3.3 Absolute Nucleated RBC 0.000 Nucleated RBC % (auto) 0.0 PT 25.0 H INR 2.2 H APTT 56.5 H D 44.1 H D Sodium Potassium Chloride Carbon Dioxide Anion Gap BUN Creatinine Estim Creat Clear Calc Estimated GFR Random Glucose Calcium Total Bilirubin AST ALT Alkaline Phosphatase Troponin I High Sens B-Natriuretic Peptide Total Protein Albumin Beta HCG, Quant Urine Color Urine Appearance Urine pH Ur Specific [place] Urine Protein Urine Glucose (UA) Urine Ketones Urine Blood Urine Nitrite Ur Leukocyte Esterase Urine Opiates Screen Ur Barbiturates Screen Ur Phencyclidine Scrn Ur Amphetamines Screen U Benzodiazepines Scrn Urine Cocaine Screen U Marijuana (THC) Screen COVID-19 (ELYSE) COVID-19 Clin Com Blood Type Antibody Screen 05/16/21 05/17/21 15:32 10:18 WBC 5.2 4.6 L RBC 3.68 L 3.66 L Hgb 9.8 L 9.5 L Hct 31.2 L 30.8 L MCV 84.8 84.2 MCH 26.6 L 26.0 L MCHC 31.4 30.8 L RDW 17.6 H 17.3 H Plt Count 235 210 MPV 12.1 12.4 H Immature Gran % (Auto) 0.2 0.2 Neut % (Auto) 67.0 66.6 Lymph % (Auto) 18.4 L 20.7 [place] % (Auto) 9.1 9.0 Eos % (Auto) 4.9 H 3.3 Baso % (Auto) 0.4 0.2 Lymph # (Auto) 1.0 L 0.9 L [place] # (Auto) 0.5 0.4 Eos # (Auto) 0.3 0.2 Baso # (Auto) 0.0 0.0 Abs Immat Gran (auto) 0.01 0.01 Absolute Neuts (auto) 3.5 3.0 Absolute Nucleated RBC 0.000 0.000 Nucleated RBC % (auto) 0.0 0.0 PT INR APTT Sodium Potassium Chloride Carbon Dioxide Anion Gap BUN Creatinine Estim Creat Clear Calc Estimated GFR Random Glucose Calcium Total Bilirubin AST ALT Alkaline Phosphatase Troponin I High Sens B-Natriuretic Peptide Total Protein Albumin Beta HCG, Quant Urine Color Urine Appearance Urine pH Ur Specific [place] Urine Protein Urine Glucose (UA) Urine Ketones Urine Blood Urine Nitrite Ur Leukocyte Esterase Urine Opiates Screen Ur Barbiturates Screen Ur Phencyclidine Scrn Ur Amphetamines Screen U Benzodiazepines Scrn Urine Cocaine Screen U Marijuana (THC) Screen COVID-19 (ELYSE) COVID-19 Clin Com Blood Type Antibody Screen Imaging Diagnostic Imaging Impressions Chest X-Ray 05/13/21 09:52 IMPRESSION: No acute disease. DS: Summary Hospital Course Hospital Course: HPI: Ms. Taylor is a 50 year-old woman with hx of MDD, multiple medical comorbidities including asthma, CHF, anemia (of unclear source but apparently it may be GI), DVT on coumadin who initially presented to [facility] ED with c/o of asthma exacerbation. While in the ED, pt expressed suicidal ideation in context of worsening medical conditions. She denied any plan or intent to hurt herself. In the ED, her utox was negative. She did receive blood transfusion as Hgb (8.7)/H ct (28.5). On the unit, pt reports feeling tired, with SOB (although O 2 sat 100%), she reported that suicidal thoughts had faded but she states that she was frustrated as they did not give her enough medical attention while in the ED. She reports that usually she receives a combination of glucocortisode, nebulizer treatment and ketamine. She makes emphasis on ketamine being helpful for her asthma attacks and also her mood, as she feels much calmer afterwards. She had incident while in unit where pt presented out of breath, despite nebulizer treatments, rapid response was called. Dr. Dow evaluated pt- clear lungs, O2 sat 100%. Pt denied anxious mood and insisted this is the calmest I felt in days. She continues to report that medical staff were ignoring her medical condition. She insisted on ketamine treatment, which at time it was not recommeded by medical team.? Pt on the unit adamantly denied suicidal or homicidal ideatino. She denies hx of VH/AH. She reports sleep is fair. She does report worrying about her health and this taking toll on her mental health. However, she signed 3 day noticed as she reported she was safe going back home. Collateral information was gathered from the - who reports they have been together for 35 years. reports increase anxiety with current medical conditions but denied any safety concerns. Medical Evaluation Reviewed: Yes Chronic anemia- unclear source most likely GI, on coumadin for DVT prevention which worsens bleeding. Monitor CBC with dif. On Coumadin- monitor INR/PT, aPPT. Asthma- no signs of pneumonia or infection source HOSPITAL COURSE On the unit, Ms. Taylor presented with several somatic complaints. She reported feeling frustrated as she felt that ED had not provided the usual treatment she receives when in respiratory distress secondary to asthma including combination of glucoesteroid and ketamine. Pt reported finding ketamine very helpful for mental health and medical. Pt did report feeling anxious as medical conditions worsening in past year. However, she reported that coughing and feeling out of breath it was not due to anxiety. However, she was evaluated by medical hospitalist- lungs clear, o2 sat 100% on room air. On the unit, she adamantly denied suicidal or homicidal ideation. She reported feeling calmer, hoping that referral to ketamine problem will be beneficial for mental health as well. we discussed risks, benefits and alternative treatment option. Ms. Taylor agreed to continue antidepressant- lexapro. She also agreed to continue ativan which was decreased by her OP provider as apparently pt asking to increase dose and reporting no benefit. Collateral information gathered from family- who denies any safety concerns and agrees that pt is ready to return home. She was visible in the unit, social with select peers. No incidences of disruptive behaviors nor use of restraints. Status at Discharge Cognitive/behavioral status at discharge: Pt presents as less overwhelmed, calmer, future oriented, no SI/HI. No signs of aggression towards self or others although somatically preoccupied despite reassurance from hospitalist. Functional status at discharge: independent ambulation Overall status at discharge: patient is progressing back to baseline Time Spent with Patient Time attestation: Total time spent providing and/or coordinating discharge services: Time spent: Greater than 30 minutes Discharge Plan Discharge Patient Disposition: Home, Self-Care Discharge Diagnosis: MDD, recurrent, moderate BILLY Referrals: RANDY NICOLE [Other] - 05/23/21 3:00 pm (TELEHEALTH) RK HORAN [Other] - 05/31/21 2:40 pm (TELEHEALTH) Sophie Tang MD [Physician] - 1 Week (OFFICE WILL CALL PT. AT HOME WITH FOLLOW-UP APOINTMENT) Discharge Medications: New albuterol sulfate [Ventolin HFA] 90 mcg/actuation Hfa Aerosol Inhaler 2 puff inhalation RQ4H PRN (Reason: Shortness Of Breath) Qty: 6.7 RF: 0 Continued escitalopram oxalate 10 mg tablet 1 tab PO QAM RF: 0 warfarin 5 mg Tablet 12.5 mg PO MOWEFRSA@1800 RF: 0 risperidone [Risperdal] 1 mg Tablet 1 mg PO BEDTIME RF: 0 diltiazem HCl 180 mg Capsule,Extended Release 24 Hr 180 mg PO DAILY RF: 0 montelukast 10 mg Tablet 10 mg PO BEDTIME RF: 0 trazodone 100 mg Tablet 150 mg PO BEDTIME RF: 0 omeprazole 40 mg Capsule,Delayed Release(Dr/Ec) 40 mg PO BEDTIME RF: 0 warfarin 10 mg tablet 10 mg PO SUTUTH@1800 RF: 0 Trelegy Ellipta 100-62.5-25 mcg blister with device 1 puff PO DAILY RF: 0 ipratropium-albuterol 0.5 mg-3 mg(2.5 mg base)/3 mL Solution For Nebulization 3 ml INHALATION Q6H PRN (Reason: Wheezing) RF: 0 Discharge Orders: Discharge Order (Routine); Ordered 05/17/21 Ordered By: Mayuri Schmidt Diet: low fat, low cholesterol Activity on Discharge: As tolerated Stand Alone Forms: Patient Portal Discharge page Care Plan Goals: 1. maintain mood 2. No SI/HI. Health Concerns: 1. Follow up with PCP Plan of Treatment: 1. Take medications as prescribed. 2. Go to nearest ED or call 911 in event of emergency. Assessment: No SI/HI. Less anxious. Future oriented, although continues to present as somatically preoccupied.
--- NOTE | 2021-05-17 15:16 | PC.NURSE ---
ACCESS DEVICE REMOVED BY CASHIER ASSOCIATE, HEP LOCK FLUCH ADMINISTERED BEFORE D/C FROM UNIT
== END 2021-05-17 15:17 | disposition home or self-care (01) | DRG 885 ==
LOC: HO.ED 23:36 → HO.PM5 05-14 18:49
PROVIDERS: Physician Assistant; Admitting Provider Psychiatry & Neurology Psychiatry; Emergency Provider Emergency Medicine; Visit Provider Social Worker
DX: F33.1 Major depressive disorder, recurrent, moderate (principal); R45.851 Suicidal ideations; I82.409 Acute embolism and thrombosis of unspecified deep veins of unspecified lower extremity; J44.1 Chronic obstructive pulmonary disease with (acute) exacerbation; F41.9 Anxiety disorder, unspecified; I48.91 Unspecified atrial fibrillation; I50.9 Heart failure, unspecified; Z20.822 Contact with and (suspected) exposure to COVID-19; Z88.0 Allergy status to penicillin; Z88.2 Allergy status to sulfonamides; Z79.01 Long term (current) use of anticoagulants; Z79.899 Other long term (current) drug therapy
CPT/HCPCS: 36415; 71045; 80053; 80307; 81003; 83880; 84484; 84702; 85025; 85610; 85730; 86850; 86900; 86901; 87635; 93005; 94640; 99285; J1642

== ENCOUNTER 2021-05-29 16:45 | Emergency (ER) | payer MEDICARE, MEDICAID, SELFPAY ==
--- NOTE | ~2021-05-29 | XR_ITS ---
EXAMINATION: XR CHEST CLINICAL INFORMATION: Shortness of breath. Chest pain. COMPARISON: Most recent chest radiograph dated 05/13/2021. TECHNIQUE: Frontal view of the chest was obtained. FINDINGS: Left chest wall port with its catheter tip in the region of the cavoatrial junction. No focal airspace consolidation. No pleural effusion or pneumothorax. Stable cardiac mediastinal silhouette. XR/XR chest 1V IMPRESSION: No acute cardiopulmonary findings.
--- NOTE | 2021-05-29 16:55 | ECG_ITS ---
Test Reason : DYSPNEA Blood Pressure : / mmHG Vent. Rate : 129 BPM Atrial Rate : 129 BPM P-R Int : 134 ms QRS Dur : 074 ms QT Int : 316 ms P-R-T Axes : 044 -19 029 degrees QTc Int : 462 ms Sinus tachycardia Possible Inferior infarct , age undetermined Cannot rule out Anterior infarct , age undetermined Abnormal ECG When compared with ECG of 15-MAY-2021 10:15, Vent. rate has increased BY 53 BPM Minimal criteria for Anterior infarct are now Present Borderline criteria for Inferior infarct are now Present Referred By: Marlee Lopez Electronically Signed By:LITTLE ROONEY MD
[2021-05-29] MEDS: Albuterol Sulfate (0.083%) 2.5 MG/3 ML VIAL.NEB 10 MG INHALE (17:06)
[2021-05-29 17:07] VITALS: PULSE 124; O2SAT 97
--- NOTE | 2021-05-29 17:14 | ED.SOB ---
HPI - SOB/Dyspnea General Chief Complaint: Dyspnea Stated Complaint: CHEST PAIN, SOB Time Seen by Provider: 05/29/21 16:55 Source: patient and EMS Mode of arrival: EMS Limitations: no limitations History of Present Illness HPI Narrative: 50 y/o female with history of poorly controlled asthma/COPD, afib, recurrent DVT's on Coumadin, CHF, depression/anxiety, obesity here with complaints of shortness of breath, chest discomfort with coughing No fevers, chills, productive cough, leg swelling or pain. Used daily medications today, rescue nebulizer. Went to PCP for scheduled appointment and sent here from there. Recently admitted 02/16-02/18, 02/24-02/25, and again 03/06-03/08 for acute asthma exacerbations. Patient also frequents [facility] and per patient has had multiple admits there for same. Per patient seen at [facility] last evening and discharged home. MD elicited complaint: shortness of breath, cough, pain with inspiration and chest pain Related Data Home Medications Medication Instructions Recorded Confirmed diltiazem HCl 180 mg capsule,24 180 mg PO DAILY 09/03/20 05/13/21 hr,extended release montelukast 10 mg tablet 10 mg PO BEDTIME 09/03/20 05/13/21 trazodone 100 mg tablet 150 mg PO BEDTIME 09/03/20 05/13/21 omeprazole 40 mg capsule,delayed 40 mg PO BEDTIME 02/16/21 05/13/21 release warfarin 10 mg tablet 10 mg PO SUTUTH@1800 03/06/21 05/13/21 fluticasone fur. 100 mcg-umeclid 1 puff PO DAILY 03/08/21 05/13/21 62.5 mcg-vilant 25 mcg inhalat.powder (Trelegy Ellipta) ipratropium 0.5 mg-albuterol 3 mg 3 ml INHALATION Q6H PRN 03/08/21 05/13/21 (2.5 mg base)/3 mL nebulization soln escitalopram oxalate 10 mg tablet 1 tab PO QAM 05/13/21 05/13/21 risperidone 1 mg tablet (Risperdal) 1 mg PO BEDTIME 05/13/21 05/13/21 warfarin 5 mg tablet 12.5 mg PO MOWEFRSA@1800 05/13/21 05/13/21 Previous Rx's Medication Instructions Recorded albuterol sulfate 90 mcg/actuation 2 puff INHALATION RQ4H PRN #6.7 g 05/17/21 aerosol inhaler (Ventolin HFA) lorazepam 1 mg tablet (Ativan) 1 mg PO BID PRN #30 tab 05/17/21 prednisone 20 mg tablet 40 mg PO DAILY #10 tab 05/29/21 Allergies Allergy/AdvReac Type Severity Reaction Status Date / Time azithromycin Allergy Intermediate ITCHING Verified 03/06/21 20:19 [From ZITHROMAX Z-XANDER] amoxicillin [AMOXICILLIN] Allergy Unknown UNKNOWN, Verified 03/06/21 20:19 hives, swelling budesonide [From SYMBICORT] Allergy Unknown UNKNOWN Verified 03/06/21 20:19 cefpodoxime [From VANTIN] Allergy Unknown UNKNOWN Verified 03/06/21 20:19 cefuroxime [From CEFTIN] Allergy Unknown UNKNOWN Verified 03/06/21 20:19 Cephalosporins Allergy Unknown UNKNOWN Verified 03/06/21 20:19 [CEPHALOSPORINS] ciprofloxacin [From CIPRO] Allergy Unknown UNKNOWN Verified 03/06/21 20:19 diphtheria,pertussis Allergy Unknown Unknown Verified 03/06/21 20:19 (acellular),te [Adacel(Tdap Adolesn/Adult)(PF)] erythromycin base Allergy Unknown UNKNOWN Verified 03/06/21 20:19 [ERYTHROMYCIN BASE] fluticasone [Advair Diskus] Allergy Unknown Unknown Verified 03/06/21 20:19 formoterol [From SYMBICORT] Allergy Unknown UNKNOWN Verified 03/06/21 20:19 hydrocodone [From VICODIN] Allergy Unknown unknown Verified 03/06/21 20:19 Iodinated Contrast Media Allergy Unknown UNKNOWN Verified 03/06/21 20:19 [CONTRAST, IV] levofloxacin [From LEVAQUIN] Allergy Unknown UNKNOWN Verified 03/06/21 20:19 penicillin G Allergy Unknown Unknown Verified 03/06/21 20:19 penicillin V Allergy Unknown Unknown Verified 03/06/21 20:19 Penicillins [PENICILLINS] Allergy Unknown UNKNOWN Verified 03/06/21 20:19 salmeterol [Advair Diskus] Allergy Unknown Unknown Verified 03/06/21 20:19 sertraline [From ZOLOFT] Allergy Unknown SUICIDAL Verified 03/06/21 20:19 Sulfa (Sulfonamide Allergy Unknown hives Verified 03/06/21 20:19 Antibiotics) tetanus and diphtheria Allergy Unknown UNKNOWN Verified 03/06/21 20:19 toxoids [TETANUS & DIPHTHERIA TOXOIDS] Vantin Allergy Unknown Unknown Verified 03/06/21 20:19 ketorolac [From TORADOL] AdvReac Mild ITCHING Verified 03/06/21 20:19 Ceftin Allergy Unknown Unknown Uncoded 03/06/21 20:19 IV dye Allergy Unknown Unknown Uncoded 03/06/21 20:19 Symbicort Allergy Unknown Unknown Uncoded 03/06/21 20:19 Tetanus Allergy Unknown Unknown Uncoded 03/06/21 20:19 Erythromycin Allergy Unknown Uncoded 03/06/21 20:19 Review of Systems Review of Systems: Yes all other systems are reviewed and are negative Constitutional: Constitutional: Reports no additional constitutional complaints, Denies body ache(s), Denies chills, Denies fever(s), Denies headache(s) and Denies weakness Eyes: Eyes: Reports no additional eye complaints and Denies change in vision ENT: Reports system reviewed and no additional complaints, except as documented, Denies dizziness, Denies headache(s), Denies nasal congestion, Denies nasal discharge and Denies neck pain Cardiovascular: Cardiovascular: Reports no additional cardiovascular complaints, Reports chest pain, Denies leg edema and Reports dyspnea Respiratory: Respiratory: Reports no additional respiratory complaints, Reports cough and Reports dyspnea Gastrointestinal: Gastrointestinal: Reports no additional gastrointestinal complaints, Denies abdominal pain, Denies diarrhea, Denies nausea and Denies vomiting Genitourinary: Genitourinary: Reports no additional female genitourinary complaints and Denies urinary incontinence Musculoskeletal: Musculoskeletal: Reports no additional musculoskeletal complaints, Denies back pain, Denies arthralgias, Denies joint swelling, Denies neck pain, Denies numbness and Denies tingling Integumentary/Breasts: Skin/Breast: Reports system reviewed and no additional complaints, except as docu and Denies rash Neurologic: Reports system reviewed and no additional complaints, except as documented, Denies Abnormal speech present, Denies dizziness, Denies headache(s), Denies numbness, Denies tingling and Denies weakness PMFSH Past Medical History Attestation statement: The following information was validated with the patient. Source: old records reviewed and nursing notes reviewed Medical History Anxiety Asthma Atrial fibrillation CHF (congestive heart failure) Depression DVT (deep venous thrombosis) Hypertension Irritable bowel Morbid obesity Social History Social History Household Members: Spouse and Children Housing: Apartment Housing Other:: duplex Do you presently have visiting nurse or other home services: No Alcohol intake: former Patient Tobacco Use Status: Former Tobacco user e-Cigarette/Vaping Use: Never Used Second Hand Smoke Exposure: No Substance Use Type: Marijuana Advance Directives: Yes Advance Directives on File: Yes Advance Directives Date on File: 09/06/20 service: No Current occupational status: disabled Sexual orientation: Straight/Heterosexual Physical Exam Vital Signs: Vital Signs: Last Vital Signs Pulse 103 H 05/29/21 20:00 Resp 25 H 05/29/21 20:00 BP 111/48 L 05/29/21 20:00 Pulse Ox 96 05/29/21 20:00 Body Mass Index 43.0 Const: General: cooperative, healthy appearing, comfortable and no acute distress Orientation/consciousness: patient oriented x3 Limitations: no limitations HENMT: Head: Yes normal to inspection Ears: hearing grossly normal bilaterally General nose exam: Normal external nose present Face and sinus: Yes normal facial exam Mouth: Normal oral and palatal mucosa present Throat: Yes posterior oropharynx normal Eyes: General: appearance normal, both eyes and all related structures Pupils: Equal, round and reactive pupils present Neck: Neck: Yes normal visual inspection Chest: Chest palpation & inspection: normal inspection of the chest Resp: Other: ?Mild respiratory distress.? Breath sounds with inspiratory and expiratory wheezes throughout, coarse. No rales. No rhonchi. Speaks in 2-3 word sentences. Dry cough Very anxious Cardio: Rate: regular rate Rhythm: regular rhythm Peripheral pulses: Peripheral pulses 2+ throughout GI: Inspection: Yes normal to inspection Palpation (GI): Soft to palpation and nontender Auscultation: normal bowel sounds Back/Spine/Pelvis: Thoracic/Lumbar Spine: thoracic and lumbar spine normal to inspection Skin: General skin exam: no rashes or lesions noted Neuro: General: patient oriented x3, no focal motor deficits and normal sensation to monofilament Cranial nerves: Yes Equal, round and reactive pupils present Cognition (Neuro): normal cognition Speech: No Abnormal speech present Gait exam (Neuro): Normal gait present Motor exam (neuro): 5/5 motor strength present throughout Extrem: General: Yes normal to inspection Course Course Course Narrative: 50 yo female well known to us with h/o poorly controlled asthma with anxiety component here with SOB, cough, wheezing, chest discomfort with coughing x several days worsening today despite home meds. On arrival diffuse wheezing, tachypnea, very anxious appearing. Chronic hoarseness ?secondary to VCD. Patient requesting pain medication and ketamine for ?anxiety/WOB. Patient will need labs, CXR, EKG, Covid screen. Will give 1 hr long nebulizer, iv solumedrol and magnesium and re-assess. APAP for pain. 1829-After 1st nebulizer continued wheezing, shortness of breath, cough. ?underlying anxiety component. Also c/o throat tightness with no itching/rash/vomiting or diarrhea. Will give dose of benadryl although I think this is from underlying anxiety. Will re-evaluate post nebulizer. -elevated lactic acid. Not from infection. Likely from multiple albuterol treatments. Gentle hydration ordered and will follow. Tachycardia and tachypnea from CLD/anxiety and not infection. 1854-Patient requesting cough medication. When I asked her what cough medication she can take d/t multiple listed allergies she tells me she has had robitussin and hycodan multiple times with no issues. Ordered hycodan. 1999-Patient has been resting from 1900 to now with no coughing with eyes closed, resp rate 20 and heart rate 103. I woke her at 1945 and she is requesting admission although I am not sure at this time if it is warranted. We discussed as she is improving she will likely be discharged home. 2009- Patient woke c/o facial itching and rash. Mild erythema noted to right side of face but patient itching it extensively so this may be from constant itching. No angioedema. Stable vital signs. Will re-dose with benadryl and give IV pepcid and re-assess. 2099-Sleeping, heart rate 94, rr 18, oxygen saturation >95% on RA. No angioedema, no diff breathing, resp even and unlabored. No redness or swelling noticed to the face. 2129-Spoke to patient. She wishes to stay but I do not think at this time admission is warranted. She is requesting dilaudid here which she tells me she takes at home however on review of [facility] she filled 2mg dilaudid 05/09 #12 and prior to this on 01/30 2mg #4. Does not seem consistent with what I am being told. Patient has been resting calmly >2 hrs with no wheezing and stable vital signs. Will send home with course of prednisone which she tells me she can. Has adequate refills for nebulizers. Reviewed worrisome signs and symptoms of when to return to the emergency department. Comfortable discharge home. MDM - SOB/Dyspnea MDM Narrative Medical decision making narrative: Less likely ACS symptoms greater than 24 hours with an EKG and troponin which are unremarkable. Less likely PE with patient being on Coumadin and compliant with dose Medical Records Attestation: I reviewed the patient's medical records. Lab Data Attestation: I reviewed the patient's lab results. Result diagrams: 05/29/21 17:58 05/29/21 17:58 Labs: Lab Results 05/29/21 05/29/21 05/29/21 Range/Units 17:37 17:58 17:58 WBC 8.8 (4.8-10.8) X10*3/uL RBC 4.05 L (4.20-5.50) X10*6/uL Hgb 10.5 L (12.0-16.0) g/dl Hct 34.0 L (37-47) % MCV 84.0 (80-98) fL MCH 25.9 L (27.0-33.0) pg MCHC 30.9 L (31.0-35.0) g/dl RDW 17.0 H (11.0-16.0) % Plt Count 270 D (160-400) X10*3/uL MPV 11.2 (9.4-12.3) fL Immature Gran % (Auto) 0.3 (0.0-0.4) % Neut % (Auto) 57.0 (45-73) % Lymph % (Auto) 34.1 (20-40) % [place] % (Auto) 6.9 (2-11) % Eos % (Auto) 1.5 (0-4) % Baso % (Auto) 0.2 (0-2) % Lymph # (Auto) 3.0 (1.2-4.9) X10*3/uL [place] # (Auto) 0.6 (0.1-1.2) X10*3/uL Eos # (Auto) 0.1 (0.0-0.4) X10*3/uL Baso # (Auto) 0.0 (0.0-0.2) X10*3/uL Abs Immat Gran (auto) 0.03 (0.00-0.03) X10*3/uL Absolute Neuts (auto) 5.0 (2.0-8.3) X10*3/uL Absolute Nucleated RBC 0.000 (0.0-0.012) X10*3/uL Nucleated RBC % (auto) 0.0 (0.0-0.2) /100WBC PT (9.9-13.0) SEC INR (0.9-1.1) Sodium 141 (135-145) mmol/L Potassium 4.1 (3.3-5.1) mmol/L Chloride 107 (96-108) mmol/L Carbon Dioxide 23 (22-29) mmol/L Anion Gap 15 (12-20) BUN 16 (9-16) mg/dL Creatinine 1.05 (0.5-1.4) mg/dL Estim Creat Clear Calc 67.2 Estimated GFR 55 Random Glucose 153 H (60-115) mg/dL Lactic Acid (0.5-2.0) mmol/L Calcium 9.9 D (8.4-10.2) mg/dL Magnesium 3.4 H (1.6-2.6) mg/dL Total Bilirubin 0.4 (0.0-1.0) mg/dL AST 16 (5-31) U/L ALT 20 (0-31) U/L Alkaline Phosphatase 78 (39-117) U/L Troponin I High Sens (<3.5-17.0) ng/L B-Natriuretic Peptide (<100) pg/mL Total Protein 6.8 (6.5-8.0) g/dL Albumin 4.5 (3.5-5.0) g/dL Coronavirus (PCR) NEGATIVE (Negative) Influenza Type A (PCR) NEGATIVE (Negative) Influenza Type B (PCR) NEGATIVE (Negative) RSV RNA Qual (PCR) NEGATIVE (Negative) 05/29/21 05/29/2105/29/21 Range/Units 17:58 17:58 17:58 WBC (4.8-10.8) X10*3/uL RBC (4.20-5.50) X10*6/uL Hgb (12.0-16.0) g/dl Hct (37-47) % MCV (80-98) fL MCH (27.0-33.0) pg MCHC (31.0-35.0) g/dl RDW (11.0-16.0) % Plt Count (160-400) X10*3/uL MPV (9.4-12.3) fL Immature Gran % (Auto) (0.0-0.4) % Neut % (Auto) (45-73) % Lymph % (Auto) (20-40) % [place] % (Auto) (2-11) % Eos % (Auto) (0-4) % Baso % (Auto) (0-2) % Lymph # (Auto) (1.2-4.9) X10*3/uL [place] # (Auto) (0.1-1.2) X10*3/uL Eos # (Auto) (0.0-0.4) X10*3/uL Baso # (Auto) (0.0-0.2) X10*3/uL Abs Immat Gran (auto) (0.00-0.03) X10*3/uL Absolute Neuts (auto) (2.0-8.3) X10*3/uL Absolute Nucleated RBC (0.0-0.012) X10*3/uL Nucleated RBC % (auto) (0.0-0.2) /100WBC PT 20.6 H (9.9-13.0) SEC INR 1.8 H (0.9-1.1) Sodium (135-145) mmol/L Potassium (3.3-5.1) mmol/L Chloride (96-108) mmol/L Carbon Dioxide (22-29) mmol/L Anion Gap (12-20) BUN (9-16) mg/dL Creatinine (0.5-1.4) mg/dL Estim Creat Clear Calc Estimated GFR Random Glucose (60-115) mg/dL Lactic Acid 2.3 H* (0.5-2.0) mmol/L Calcium (8.4-10.2) mg/dL Magnesium (1.6-2.6) mg/dL Total Bilirubin (0.0-1.0) mg/dL AST (5-31) U/L ALT (0-31) U/L Alkaline Phosphatase (39-117) U/L Troponin I High Sens < 3.5 (<3.5-17.0) ng/L B-Natriuretic Peptide 57 (<100) pg/mL Total Protein (6.5-8.0) g/dL Albumin (3.5-5.0) g/dL Coronavirus (PCR) (Negative) Influenza Type A (PCR) (Negative) Influenza Type B (PCR) (Negative) RSV RNA Qual (PCR) (Negative) Imaging Data Chest x-ray: Attestation: I personally reviewed and interpreted this imaging study as follows: Radiologist's impression: [address] [address] XRay Report Signed Patient: Samara Taylor MR#: [id number] : 1970 Acct:[id number] Age/Sex: 50 / F ADM Date: 05/29/21 Loc: .ED Attending Dr: Ordering Physician: SINDY SULLIVAN? MARISOL Date of Service: 05/29/21 Procedure(s): XR chest 1V Accession Number(s): [id number] cc: SINDY SULLIVAN? MARISOL~ EXAMINATION: XR CHEST CLINICAL INFORMATION: Shortness of breath. Chest pain. COMPARISON: Most recent chest radiograph dated 05/13/2021. TECHNIQUE: Frontal view of the chest was obtained. FINDINGS: Left chest wall port with its catheter tip in the region of the cavoatrial junction. No focal airspace consolidation. No pleural effusion or pneumothorax. Stable cardiac mediastinal silhouette. XR/XR chest 1V IMPRESSION: No acute cardiopulmonary findings. ? ECG Data Attestation: I personally reviewed and interpreted this ECG as follows: ECG interpretation date: 05/29/21 ECG interpretation time: 17:24 Interpretation: Sinus tachycardia with artifact present, rate 129, will repeat once patient less anxious Discharge Plan Discharge Clinical Impression: Asthma, Atypical chest pain Patient Disposition: Home, Self-Care Instructions: Chest Pain (ED), Asthma (ED) Additional Instructions: Your lab work showed mild anemia however this actually looks improved from your previous blood count Your EKG and chest x-ray are normal Your COVID test was negative You were treated with IV steroids, magnesium and nebulizers. You had some itching to hycodan cough syrup so you should probably avoid this moving forward Next dose of steroids tomorrow Continue your nebulizers Follow-up with your regular care doctors Prescriptions: New prednisone 20 mg tablet 40 mg PO DAILY Qty: 10 RF: 0 No Action escitalopram oxalate 10 mg tablet 1 tab PO QAM RF: 0 warfarin 5 mg Tablet 12.5 mg PO MOWEFRSA@1800 RF: 0 risperidone [Risperdal] 1 mg Tablet 1 mg PO BEDTIME RF: 0 albuterol sulfate [Ventolin HFA] 90 mcg/actuation Hfa Aerosol Inhaler 2 puff inhalation RQ4H PRN (Reason: Shortness Of Breath) Qty: 6.7 RF: 0 lorazepam [Ativan] 1 mg tablet 1 mg PO BID PRN (Reason: anxiety) Qty: 30 RF: 0 diltiazem HCl 180 mg Capsule,Extended Release 24 Hr 180 mg PO DAILY RF: 0 montelukast 10 mg Tablet 10 mg PO BEDTIME RF: 0 trazodone 100 mg Tablet 150 mg PO BEDTIME RF: 0 omeprazole 40 mg Capsule,Delayed Release(Dr/Ec) 40 mg PO BEDTIME RF: 0 warfarin 10 mg tablet 10 mg PO SUTUTH@1800 RF: 0 Trelegy Ellipta 100-62.5-25 mcg blister with device 1 puff PO DAILY RF: 0 ipratropium-albuterol 0.5 mg-3 mg(2.5 mg base)/3 mL Solution For Nebulization 3 ml INHALATION Q6H PRN (Reason: Wheezing) RF: 0 Referrals: Physician,Unknown [Primary Care Provider] - 2 days Interventions: ED Discharge Assessment Last Done: 05/29/21 21:18 Discharge Date/Time: 05/29/21 21:41
[2021-05-29] MEDS: methylPREDNISolone Sod Succ 125 MG/2 ML VIAL IVPUSH (17:20)
[2021-05-29] MEDS: Magnesium Sulfate/H2O 2 GM/50 ML PIGGYBACK IV (17:21)
--- NOTE | 2021-05-29 17:45 | PC.NURSE ---
Pt alert and oriented x3. she presents to the ed with c/o sob, difficulty breathing, and a dry cough with chest discomfort, audible breath sounds noted throughout lung botello. She states symptoms started this morning but got worse while at her doctor's appointment this afternoon. Pt reports she has had multiple episodes of the same symptoms in the past. Pt's port accessed, all her meds given and labs drawn as documented. Pt given updraft tx however she states it was not effective. Another updraft given. Pt's at bedside.
[2021-05-29 17:47] VITALS: BP 121/72; PULSE 133; RESP 22; O2SAT 96; BMI 43.0
[2021-05-29 18:01] LABS: Basophils Percent Auto 0.2 % (0-2); Eosinophils Absolute Auto 0.1 X10*3/uL (0.0-0.4); Eosinophils Percent Auto 1.5 % (0-4); Hemoglobin 10.5 g/dl (12.0-16.0); Imm Gran Abs Auto 0.03 X10*3/uL (0.00-0.03); Imm Gran Pct Auto 0.3 % (0.0-0.4); Lymphocytes Percent Auto 34.1 % (20-40); Mean Corpuscular HGB Conc 30.9 g/dl (31.0-35.0); Mean Corpuscular Hemoglobin 25.9 pg (27.0-33.0); Mean Platelet Volume 11.2 fL (9.4-12.3); Monocytes Absolute Auto 0.6 X10*3/uL (0.1-1.2); Monocytes Percent Auto 6.9 % (2-11); Platelet Count 270 X10*3/uL (160-400); Red Blood Count 4.05 X10*6/uL (4.20-5.50); White Blood Count 8.8 X10*3/uL (4.8-10.8)
[2021-05-29 18:02] LABS: MANUAL DIFF FLAG NO
[2021-05-29 18:07] LABS: INTERNATIONAL NORM RATIO 1.8 (0.9-1.1); Prothrombin Time 20.6 SEC (9.9-13.0)
[2021-05-29 18:21] LABS: Influenza A PCR NEGATIVE (Negative); Influenza B PCR NEGATIVE (Negative); Resp Syncy Virus RNA Qual PCR NEGATIVE (Negative); SARS COV2 PCR INHOUSE NEGATIVE (Negative)
[2021-05-29 18:29] LABS: Alanine Aminotransferase 20 U/L (0-31); Albumin Level 4.5 g/dL (3.5-5.0); Alkaline Phosphatase 78 U/L (39-117); Anion Gap 15 (12-20); Aspartate Amino Transferase 16 U/L (5-31); Bilirubin Total 0.4 mg/dL (0.0-1.0); Blood Urea Nitrogen 16 mg/dL (9-16); Calcium 9.9 mg/dL (8.4-10.2); Carbon Dioxide 23 mmol/L (22-29); Chloride 107 mmol/L (96-108); Creatinine Clr Calc Pharmacy 67.2; Estimated Glomerular Filt Rate 55; Glucose Random 153 mg/dL (60-115); Magnesium 3.4 mg/dL (1.6-2.6); Potassium 4.1 mmol/L (3.3-5.1); Sodium 141 mmol/L (135-145); Total Protein 6.8 g/dL (6.5-8.0)
[2021-05-29] MEDS: Albuterol Sulfate (0.083%) 2.5 MG/3 ML VIAL.NEB 5 MG INHALE (18:29)
[2021-05-29] MEDS: diphenhydrAMINE HCL 50 MG/ML VIAL IVPUSH ×2 (18:29→20:14)
[2021-05-29 18:32] LABS: Lactic Acid 2.3 mmol/L (0.5-2.0)
[2021-05-29 18:33] VITALS: PULSE 127; O2SAT 96
[2021-05-29 18:33] LABS: B Type Natriuretic Peptide 57 pg/mL (<100); Troponin-I High Sensitivity < 3.5 ng/L (<3.5-17.0)
[2021-05-29 19:18] VITALS: BP 111/48; PULSE 108; RESP 25; O2SAT 96
[2021-05-29] MEDS: Acetaminophen 325 MG TABLET 650 MG PO (19:19)
[2021-05-29] MEDS: 0.9 % Sodium Chloride 500 ML 999 ML IV (19:21)
[2021-05-29] MEDS: HYDROcodone/Homat 5/1.5/5 ML 5 ML SYRUP PO (19:44)
[2021-05-29 19:58] LABS: Reflex Lactate? Lactic Acid Added
[2021-05-29 20:00] VITALS: BP 111/48; PULSE 103; RESP 25; O2SAT 96
[2021-05-29] MEDS: Famotidine/PF 20 MG/2 ML VIAL IVPUSH (20:14)
== END 2021-05-29 21:41 | disposition home or self-care (01) ==
PROVIDERS: Nurse Practitioner Family; Physician Assistant Medical; Emergency Provider Emergency Medicine Emergency Medical Services
DX: J45.909 Unspecified asthma, uncomplicated (principal); R07.89 Other chest pain; R06.02 Shortness of breath; Z20.822 Contact with and (suspected) exposure to COVID-19; I48.91 Unspecified atrial fibrillation
CPT/HCPCS: 0241U; 36415; 71045; 80053; 83605; 83735; 83880; 84484; 85025; 85610; 87040; 93005; 94640; 94644; 96361; 96365; 96366; 96375; 96376; 99284; J1200; J2930; J3475

== ENCOUNTER 2021-05-31 12:35 | Emergency (ER) | payer MEDICARE, MEDICAID, SELFPAY | END 2021-05-31 13:31 | disposition left against medical advice (07) | PROVIDERS: Emergency Provider Emergency Medicine; PCP Family Medicine | DX: T14.90XA Injury, unspecified, initial encounter (principal); X58.XXXA Exposure to other specified factors, initial encounter ==

== ENCOUNTER 2021-06-03 23:08 | Emergency (ER) | payer MEDICARE, MEDICAID, SELFPAY ==
[2021-06-03 23:28] VITALS: PULSE 130; RESP 26; TEMP 36.8; O2SAT 99; BMI 43.0
[2021-06-03 23:36] VITALS: BP 127/97
--- NOTE | 2021-06-03 23:36 | PC.NURSE ---
patient is holding her breath during triage and why trying to listen to breath sounds, making and upper resp gurgling coughing noise. breath sounds are clear when patient takes a breath, normal gas exchange and upper resp sounds heard that patient is making. turning her face red from holding her breath. o2 sat is 100% on room. air. patient reports giving herself 4 breathing treatments today prior to arrival.
--- NOTE | 2021-06-03 23:55 | ED.SOB ---
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 She has been using her nebulizer at home with no improvement. She states her chest feels tight. She is coughing so hard that she vomits. She took 2 doses of ativan before coming in with no improvement in her cough and bronchospasm. She reports having pneumonia last month but the doctors did not want her to have antibiotics. She has multiple admissions here and other surrounding hospitals for asthma exacerbations. She was last seen here on 05/29 and had a full workup, discharged home on steroids. MD elicited complaint: shortness of breath and cough Pertinent past history: COPD, asthma and congestive heart failure Onset (ago): day(s) Timing: intermittent Severity: similar to previous episodes Exacerbating factors: coughing Relieving factors: nothing Known history of: COPD, asthma and congestive heart failure Associated symptoms: chest pain, cough and wheezing Treatment prior to arrival: bronchodilator Related Data Home oxygen amount: none Home Medications Medication Instructions Recorded Confirmed diltiazem HCl 180 mg capsule,24 180 mg PO DAILY 09/03/20 05/13/21 hr,extended release montelukast 10 mg tablet 10 mg PO BEDTIME 09/03/20 05/13/21 trazodone 100 mg tablet 150 mg PO BEDTIME 09/03/20 05/13/21 omeprazole 40 mg capsule,delayed 40 mg PO BEDTIME 02/16/21 05/13/21 release warfarin 10 mg tablet 10 mg PO SUTUTH@1800 03/06/21 05/13/21 fluticasone fur. 100 mcg-umeclid 1 puff PO DAILY 03/08/21 05/13/21 62.5 mcg-vilant 25 mcg inhalat.powder (Trelegy Ellipta) ipratropium 0.5 mg-albuterol 3 mg 3 ml INHALATION Q6H PRN 03/08/21 05/13/21 (2.5 mg base)/3 mL nebulization soln escitalopram oxalate 10 mg tablet 1 tab PO QAM 05/13/21 05/13/21 risperidone 1 mg tablet (Risperdal) 1 mg PO BEDTIME 05/13/21 05/13/21 warfarin 5 mg tablet 12.5 mg PO MOWEFRSA@1800 05/13/21 05/13/21 Previous Rx's Medication Instructions Recorded albuterol sulfate 90 mcg/actuation 2 puff INHALATION RQ4H PRN #6.7 g 05/17/21 aerosol inhaler (Ventolin HFA) lorazepam 1 mg tablet (Ativan) 1 mg PO BID PRN #30 tab 05/17/21 prednisone 20 mg tablet 40 mg PO DAILY #10 tab 05/29/21 Allergies Allergy/AdvReac Type Severity Reaction Status Date / Time azithromycin Allergy Intermediate ITCHING Verified 03/06/21 20:19 [From ZITHROMAX Z-XANDER] amoxicillin [AMOXICILLIN] Allergy Unknown UNKNOWN, Verified 03/06/21 20:19 hives, swelling budesonide [From SYMBICORT] Allergy Unknown UNKNOWN Verified 03/06/21 20:19 cefpodoxime [From VANTIN] Allergy Unknown UNKNOWN Verified 03/06/21 20:19 cefuroxime [From CEFTIN] Allergy Unknown UNKNOWN Verified 03/06/21 20:19 Cephalosporins Allergy Unknown UNKNOWN Verified 03/06/21 20:19 [CEPHALOSPORINS] ciprofloxacin [From CIPRO] Allergy Unknown UNKNOWN Verified 03/06/21 20:19 diphtheria,pertussis Allergy Unknown Unknown Verified 03/06/21 20:19 (acellular),te [Adacel(Tdap Adolesn/Adult)(PF)] erythromycin base Allergy Unknown UNKNOWN Verified 03/06/21 20:19 [ERYTHROMYCIN BASE] fluticasone [Advair Diskus] Allergy Unknown Unknown Verified 03/06/21 20:19 formoterol [From SYMBICORT] Allergy Unknown UNKNOWN Verified 03/06/21 20:19 hydrocodone [From VICODIN] Allergy Unknown unknown Verified 03/06/21 20:19 Iodinated Contrast Media Allergy Unknown UNKNOWN Verified 03/06/21 20:19 [CONTRAST, IV] levofloxacin [From LEVAQUIN] Allergy Unknown UNKNOWN Verified 03/06/21 20:19 penicillin G Allergy Unknown Unknown Verified 03/06/21 20:19 penicillin V Allergy Unknown Unknown Verified 03/06/21 20:19 Penicillins [PENICILLINS] Allergy Unknown UNKNOWN Verified 03/06/21 20:19 salmeterol [Advair Diskus] Allergy Unknown Unknown Verified 03/06/21 20:19 sertraline [From ZOLOFT] Allergy Unknown SUICIDAL Verified 03/06/21 20:19 Sulfa (Sulfonamide Allergy Unknown hives Verified 03/06/21 20:19 Antibiotics) tetanus and diphtheria Allergy Unknown UNKNOWN Verified 03/06/21 20:19 toxoids [TETANUS & DIPHTHERIA TOXOIDS] Vantin Allergy Unknown Unknown Verified 03/06/21 20:19 ketorolac [From TORADOL] AdvReac Mild ITCHING Verified 03/06/21 20:19 Ceftin Allergy Unknown Unknown Uncoded 03/06/21 20:19 IV dye Allergy Unknown Unknown Uncoded 03/06/21 20:19 Symbicort Allergy Unknown Unknown Uncoded 03/06/21 20:19 Tetanus Allergy Unknown Unknown Uncoded 03/06/21 20:19 Erythromycin Allergy Unknown Uncoded 03/06/21 20:19 Review of Systems Constitutional: Constitutional: Denies chills, Denies fever(s) and Reports headache(s) Eyes: Eyes: Reports irritation ENT: Reports Normal hearing present, Reports headache(s), Reports sore throat and Denies throat swelling Cardiovascular: Cardiovascular: Reports chest pain, Reports lightheadedness and Reports dyspnea Respiratory: Respiratory: Denies chest congestion, Reports cough, Denies hemoptysis, Reports pain with cough, Reports dyspnea and Denies stridor Gastrointestinal: Gastrointestinal: Denies abdominal pain, Denies diarrhea and Reports vomiting Musculoskeletal: Musculoskeletal: Denies myalgias Integumentary/Breasts: Skin/Breast: Denies rash Neurologic: Reports Normal hearing present and Reports headache(s) Psychiatric: Psychiatric: Reports anxiety, Reports depression and Reports irritability Allergic/Immunologic: Allergic/Immunologic: Denies throat swelling PMFSH Past Medical History Attestation statement: The following information was validated with the patient. Medical History Anxiety Asthma Atrial fibrillation CHF (congestive heart failure) Depression DVT (deep venous thrombosis) Hypertension Irritable bowel Morbid obesity Social History Social History Household Members: Spouse and Children Housing: Apartment Housing Other:: duplex Do you presently have visiting nurse or other home services: No Alcohol intake: former Patient Tobacco Use Status: Former Tobacco user e-Cigarette/Vaping Use: Never Used Second Hand Smoke Exposure: No Substance Use Type: Marijuana Advance Directives: Yes Advance Directives on File: Yes Advance Directives Date on File: 09/06/20 Patient : No service: No Current occupational status: disabled Sexual orientation: Straight/Heterosexual Physical Exam Vital Signs: Vital Signs: Last Vital Signs Temp 98.2 F 06/03/21 23:28 Pulse 130 H 06/03/21 23:28 Resp 26 H 06/03/21 23:28 BP 127/97 H 06/03/21 23:36 Pulse Ox 99 06/03/21 23:28 Body Mass Index 43.0 Const: General: alert, awake and in distress mild (excessive coughing fits) Nutritional Appearance: obese Orientation/consciousness: patient oriented x3 Limitations: no limitations HENMT: Head: Yes normal to inspection Ears: hearing grossly normal bilaterally General nose exam: Normal external nose present and Normal nares present Face and sinus: Yes erythema Mouth: Normal oral and palatal mucosa present, lip normal, tongue normal and no drooling Teeth and gingiva: dentition normal and gingiva normal Throat: Yes posterior oropharynx normal and Yes tonsils normal Eyes: General: appearance normal, both eyes and all related structures Neck: Neck: Yes normal visual inspection, Yes full ROM, Yes no lymphadenopathy and Yes other (audible wheezing auscultated in the neck only) Lymphatic: no lymphadenopathy noted Chest: Chest palpation & inspection: normal inspection of the chest Resp: Effort & Inspection: able to speak in complete sentences, Actively coughing Quality: fake cough and no respiratory distress Auscultation: clear to auscultation bilaterally Cardio: Rate: tachycardic Rhythm: regular rhythm Heart sounds: S1 normal heart sound present and S2 normal heart sound present GI: Inspection: Yes obesity Palpation (GI): Soft to palpation and nontender Auscultation: normal bowel sounds Skin: General skin exam: no rashes or lesions noted Neuro: General: patient oriented x3 Cranial nerves: Yes Normal hearing present Cognition (Neuro): normal cognition Gait exam (Neuro): Normal gait present Extrem: General: Yes normal to inspection Course Course Course Narrative: 50 y/o female well known to this ER presenting with cough and bronchospasm. Her exam and clinical presentation is consistent with vocal cord dysfunciton. Her lungs are clear. Her cough is forced. She is asking for BiPAP and ketamine. When asked questions she is able to stop coughing and speak in complete sentences. She is not hypoxic. We discussed management of VCD. Will give trial of inhaled lidocaine. She denies any current anxiety. Reevaluation(s) Reevaluation #1: Patient eloped. Critical Care Time Critical Care Time Critical Care Time: No Discharge Plan Discharge Clinical Impression: Vocal cord dysfunction Patient Disposition: Elopement Prescriptions: No Action escitalopram oxalate 10 mg tablet 1 tab PO QAM RF: 0 warfarin 5 mg Tablet 12.5 mg PO MOWEFRSA@1800 RF: 0 risperidone [Risperdal] 1 mg Tablet 1 mg PO BEDTIME RF: 0 albuterol sulfate [Ventolin HFA] 90 mcg/actuation Hfa Aerosol Inhaler 2 puff inhalation RQ4H PRN (Reason: Shortness Of Breath) Qty: 6.7 RF: 0 lorazepam [Ativan] 1 mg tablet 1 mg PO BID PRN (Reason: anxiety) Qty: 30 RF: 0 diltiazem HCl 180 mg Capsule,Extended Release 24 Hr 180 mg PO DAILY RF: 0 montelukast 10 mg Tablet 10 mg PO BEDTIME RF: 0 trazodone 100 mg Tablet 150 mg PO BEDTIME RF: 0 omeprazole 40 mg Capsule,Delayed Release(Dr/Ec) 40 mg PO BEDTIME RF: 0 warfarin 10 mg tablet 10 mg PO SUTUTH@1800 RF: 0 Trelegy Ellipta 100-62.5-25 mcg blister with device 1 puff PO DAILY RF: 0 ipratropium-albuterol 0.5 mg-3 mg(2.5 mg base)/3 mL Solution For Nebulization 3 ml INHALATION Q6H PRN (Reason: Wheezing) RF: 0 prednisone 20 mg tablet 40 mg PO DAILY Qty: 10 RF: 0 Discharge Date/Time: 06/04/21 01:10
--- NOTE | 2021-06-04 01:09 | PC.NURSE ---
RESPIRATORY REPORTED PATIENT WAS NOT INT HE ROOM, LOOKED FOR PATIENT AROUND DEPARTMENT NO SIGNS OF PATIENT. PROVIDER MADE AWARE PATIENT ELOPED.
== END 2021-06-04 01:10 | disposition left against medical advice (07) ==
PROVIDERS: Emergency Provider Student in an Organized Health Care Education/Training Program; PCP Family Medicine
DX: J38.3 Other diseases of vocal cords (principal); R06.02 Shortness of breath; R05 Cough; J44.9 Chronic obstructive pulmonary disease, unspecified; Z79.899 Other long term (current) drug therapy; Z87.891 Personal history of nicotine dependence; Z79.01 Long term (current) use of anticoagulants
CPT/HCPCS: 99283

== ENCOUNTER 2021-06-07 14:59 | Emergency (ER) | payer MEDICARE, MEDICAID, SELFPAY ==
--- NOTE | ~2021-06-07 | XR_ITS ---
EXAMINATION: XR CHEST CLINICAL INFORMATION: SOB COMPARISON: Chest 05/29/2021 TECHNIQUE: Frontal view of the chest was obtained. FINDINGS: The lungs are well-expanded and clear. The heart size and pulmonary vascularity is normal. There is a left central port with its tip in the mid SVC. Heart size and pulmonary vascularity is normal. No gross bony abnormality seen XR/XR chest 1V IMPRESSION: No acute cardiopulmonary process seen. No change from 05/29/2021.
[2021-06-07 15:08] VITALS: BMI 43.0
--- NOTE | 2021-06-07 15:09 | ECG_ITS ---
Test Reason : SHORTNESS OF BREATH Blood Pressure : / mmHG Vent. Rate : 099 BPM Atrial Rate : 099 BPM P-R Int : 150 ms QRS Dur : 074 ms QT Int : 372 ms P-R-T Axes : 043 -20 031 degrees QTc Int : 477 ms Normal sinus rhythm Inferior infarct (cited on or before 29-MAY-2021) Possible Anterolateral infarct (cited on or before 29-MAY-2021) Abnormal ECG When compared with ECG of 29-MAY-2021 17:24, Heart rate has decreased Referred By: Generic ED Physician Electronically Signed By:REYNA POWER
[2021-06-07 15:57] VITALS: BP 140/80; PULSE 106; RESP 22; TEMP 37.6; O2SAT 84; BMI 43.0
[2021-06-07 16:15] VITALS: BP 116/70; PULSE 88; RESP 15; TEMP 37.2; O2SAT 96
[2021-06-07 16:37] LABS: Influenza A PCR NEGATIVE (Negative); Influenza B PCR NEGATIVE (Negative); Resp Syncy Virus RNA Qual PCR NEGATIVE (Negative); SARS COV2 PCR INHOUSE NEGATIVE (Negative)
--- NOTE | 2021-06-07 16:51 | ED_ITS ---
HPI - Asthma General Chief Complaint: Asthma Stated Complaint: diff breathing Time Seen by Provider: 06/07/21 16:25 Source: patient and EMS Mode of arrival: EMS Limitations: no limitations History of Present Illness HPI Narrative: 50-year-old female came in for evaluation of coughing, this is a 50-year-old female with past medical history of hypertension, anxiety, depression, morbid ST, DVT, atrial fibrillation, congestive heart failure, asthma/COPD patient had multiple admissions for acute asthma exacerbation in the past, patient was seen by her primary doctor noted to be tachycardic patient was seen and evaluated at [facility] ER yesterday was sent home, patient is not satisfied with the treatment she received at [facility] because she did not receive her routine treatment for her cough which is (magnesium, ketamine, Solu- Medrol). Related Data Home Medications Medication Instructions Recorded Confirmed diltiazem HCl 180 mg capsule,24 180 mg PO DAILY 09/03/20 05/13/21 hr,extended release montelukast 10 mg tablet 10 mg PO BEDTIME 09/03/20 05/13/21 trazodone 100 mg tablet 150 mg PO BEDTIME 09/03/20 05/13/21 omeprazole 40 mg capsule,delayed 40 mg PO BEDTIME 02/16/21 05/13/21 release warfarin 10 mg tablet 10 mg PO SUTUTH@1800 03/06/21 05/13/21 fluticasone fur. 100 mcg-umeclid 1 puff PO DAILY 03/08/21 05/13/21 62.5 mcg-vilant 25 mcg inhalat.powder (Trelegy Ellipta) ipratropium 0.5 mg-albuterol 3 mg 3 ml INHALATION Q6H PRN 03/08/21 05/13/21 (2.5 mg base)/3 mL nebulization soln escitalopram oxalate 10 mg tablet 1 tab PO QAM 05/13/21 05/13/21 risperidone 1 mg tablet (Risperdal) 1 mg PO BEDTIME 05/13/21 05/13/21 warfarin 5 mg tablet 12.5 mg PO MOWEFRSA@1800 05/13/21 05/13/21 Previous Rx's Medication Instructions Recorded albuterol sulfate 90 mcg/actuation 2 puff INHALATION RQ4H PRN #6.7 g 05/17/21 aerosol inhaler (Ventolin HFA) lorazepam 1 mg tablet (Ativan) 1 mg PO BID PRN #30 tab 05/17/21 prednisone 20 mg tablet 40 mg PO DAILY #10 tab 05/29/21 Allergies Allergy/AdvReac Type Severity Reaction Status Date / Time azithromycin Allergy Intermediate ITCHING Verified 03/06/21 20:19 [From ZITHROMAX Z-XANDER] amoxicillin [AMOXICILLIN] Allergy Unknown UNKNOWN, Verified 03/06/21 20:19 hives, swelling budesonide [From SYMBICORT] Allergy Unknown UNKNOWN Verified 03/06/21 20:19 cefpodoxime [From VANTIN] Allergy Unknown UNKNOWN Verified 03/06/21 20:19 cefuroxime [From CEFTIN] Allergy Unknown UNKNOWN Verified 03/06/21 20:19 Cephalosporins Allergy Unknown UNKNOWN Verified 03/06/21 20:19 [CEPHALOSPORINS] ciprofloxacin [From CIPRO] Allergy Unknown UNKNOWN Verified 03/06/21 20:19 diphtheria,pertussis Allergy Unknown Unknown Verified 03/06/21 20:19 (acellular),te [Adacel(Tdap Adolesn/Adult)(PF)] erythromycin base Allergy Unknown UNKNOWN Verified 03/06/21 20:19 [ERYTHROMYCIN BASE] fluticasone [Advair Diskus] Allergy Unknown Unknown Verified 03/06/21 20:19 formoterol [From SYMBICORT] Allergy Unknown UNKNOWN Verified 03/06/21 20:19 hydrocodone [From VICODIN] Allergy Unknown unknown Verified 03/06/21 20:19 Iodinated Contrast Media Allergy Unknown UNKNOWN Verified 03/06/21 20:19 [CONTRAST, IV] levofloxacin [From LEVAQUIN] Allergy Unknown UNKNOWN Verified 03/06/21 20:19 penicillin G Allergy Unknown Unknown Verified 03/06/21 20:19 penicillin V Allergy Unknown Unknown Verified 03/06/21 20:19 Penicillins [PENICILLINS] Allergy Unknown UNKNOWN Verified 03/06/21 20:19 salmeterol [Advair Diskus] Allergy Unknown Unknown Verified 03/06/21 20:19 sertraline [From ZOLOFT] Allergy Unknown SUICIDAL Verified 03/06/21 20:19 Sulfa (Sulfonamide Allergy Unknown hives Verified 03/06/21 20:19 Antibiotics) tetanus and diphtheria Allergy Unknown UNKNOWN Verified 03/06/21 20:19 toxoids [TETANUS & DIPHTHERIA TOXOIDS] Vantin Allergy Unknown Unknown Verified 03/06/21 20:19 ketorolac [From TORADOL] AdvReac Mild ITCHING Verified 03/06/21 20:19 Ceftin Allergy Unknown Unknown Uncoded 03/06/21 20:19 IV dye Allergy Unknown Unknown Uncoded 03/06/21 20:19 Symbicort Allergy Unknown Unknown Uncoded 03/06/21 20:19 Tetanus Allergy Unknown Unknown Uncoded 03/06/21 20:19 Erythromycin Allergy Unknown Uncoded 03/06/21 20:19 Review of Systems Review of Systems: All other systems are reviewed and are negative Constitutional: Reports as per HPI and Reports no additional constitutional complaints Eyes: Reports as per HPI and Reports no additional eye complaints Reports system reviewed and no additional complaints, except as documented Cardiovascular: Reports as per HPI and Reports no additional cardiovascular c omplaints Respiratory: Reports as per HPI and Reports no additional respiratory complaints Gastrointestinal: Reports as per HPI and Reports no additional gastrointestinal complaints Genitourinary: Reports no additional female genitourinary complaints Musculoskeletal: Reports no additional musculoskeletal complaints Skin/Breast: Reports system reviewed and no additional complaints, except as docu Psychiatric: Reports no additional psychiatric complaints Endocrine: Reports no additional endocrine complaints Hematologic/Lymphatic: Reports no additional hematologic/lymphatic complaints Allergic/Immunologic: Reports no additional allergic/immunologic complaints Reports system reviewed and no additional complaints, except as documented and Reports Abnormal speech present [facility] Past Medical History Medical History Anxiety Asthma Atrial fibrillation CHF (congestive heart failure) Depression DVT (deep venous thrombosis) Hypertension Irritable bowel Morbid obesity Social History Social History Household Members: Spouse and Children Housing: Apartment Housing Other:: duplex Do you presently have visiting nurse or other home services: No Alcohol intake: former Patient Tobacco Use Status: Former Tobacco user e-Cigarette/Vaping Use: Never Used Second Hand Smoke Exposure: No Substance Use Type: Marijuana Advance Directives: Yes Advance Directives on File: Yes Advance Directives Date on File: 09/06/20 service: No Current occupational status: disabled Sexual orientation: Straight/Heterosexual Physical Exam Vital Signs: Vital Signs: Last Vital Signs Temp 98.9 F 06/07/21 16:15 Pulse 88 06/07/21 16:15 Resp 15 06/07/21 16:15 BP 116/70 08/19/21 16:15 Pulse Ox 96 06/07/21 16:15 Body Mass Index 43.0 Vital signs have been reviewed as appeared to be correct. Blood pressure normal. Heart rate normal. Respiration rate normal. Temperature normal. Oxygen saturation normal. Appearance: Alert. Oriented X3. No acute distress, anxious. Head: Normal external exam. Normocephalic. Atraumatic. No Salter signs noted. No raccoon eyes noted Eyes: PERRLA. EOMI. Conjunctiva and sclera normal. Eyelids normal. ENT: TM's Normal. Pharynx normal. Uvula midline. Moist mucous membranes. No trismus noted. No drooling noted. No muffled voice noted. Neck: Normal inspection. Neck supple. FROM. No adenopathy. Thyroid Normal. No meningeal signs. No neck mass noted. CVS: Normal heart rate and rhythm. Heart sound normal. No murmurs noted. Pulses normal throughout. Respiratory: No respiratory distress. Painless inspiration. Breath sounds normal. No wheezes/rales/rhonchi noted. Chest nontender. No accessory muscle usage noted or decreased air movement noted. Abdomen: Soft and nontender. Bowel sounds normal in all 4 quadrants. No distention noted. No organomegaly noted. No visible injury noted. Back: No CVA tenderness. Full range of motion noted. Skin: Skin warm and dry. Normal skin color. Normal skin turgor. No rashes/lesions/lacerations noted. Extremities: No lower extremity edema. Extremities exhibit normal range of motion. Extremities nontender. Neuro: Oriented X 3. Cranial nerve exam: II-XII are grossly intact No motor deficit. No sensory deficit. Reflexes normal. Course Course Course Narrative: Assessment and plan. 50-year-old female with history of asthma, presented with cough which is patient's typical presentation is cough and laryngeal spasm. Patient vital signs stable, x-ray is unremarkable, negative for COVID. Patient at baseline no medical intervention is needed at this point. Will discharge to follow with her quality control representative.. [facility] - Asthma Medical Records Attestation: I reviewed the patient's medical records. Lab Data Attestation: I reviewed the patient's lab results. Result diagrams: 06/07/21 17:46 06/07/21 17:46 Labs: Lab Results 06/07/21 06/07/21 06/07/21 Range/Units 15:55 17:46 17:46 WBC 6.4 (4.8-10.8) X10*3/uL RBC 3.57 L (4.20-5.50) X10*6/uL Hgb 9.4 L (12.0-16.0) g/dl Hct 29.7 L (37-47) % MCV 83.2 (80-98) fL MCH 26.3 L (27.0-33.0) pg MCHC 31.6 (31.0-35.0) g/dl RDW 17.0 H (11.0-16.0) % Plt Count 236 (160-400) X10*3/uL MPV 11.9 (9.4-12.3) fL Immature Gran % (Auto) 0.5 H (0.0-0.4) % Neut % (Auto) 59.2 (45-73) % Lymph % (Auto) 29.7 (20-40) % Andrews % (Auto) 7.9 (2-11) % Eos % (Auto) 2.5 (0-4) % Baso % (Auto) 0.2 (0-2) % Lymph # (Auto) 1.9 (1.2-4.9) X10*3/uL Andrews # (Auto) 0.5 (0.1-1.2) X10*3/uL Eos # (Auto) 0.2 (0.0-0.4) X10*3/uL Baso # (Auto) 0.0 (0.0-0.2) X10*3/uL Abs Immat Gran (auto) 0.03 (0.00-0.03) X10*3/uL Absolute Neuts (auto) 3.8 (2.0-8.3) X10*3/uL Absolute Nucleated RBC 0.000 (0.0-0.012) X10*3/uL Nucleated RBC % (auto) 0.0 (0.0-0.2) /100WBC Sodium 142 (135-145) mmol/L Potassium 4.1 (3.3-5.1) mmol/L Chloride 110 H (96-108) mmol/L Carbon Dioxide 23 (22-29) mmol/L Anion Gap 13 (12-20) BUN 17 H (9-16) mg/dL Creatinine 0.81 (0.5-1.4) mg/dL Estim Creat Clear Calc 87.1 Estimated GFR > 60 Random Glucose 112 (60-115) mg/dL Calcium 9.3 D (8.4-10.2) mg/dL Troponin I High Sens (<3.5-17.0) ng/L Coronavirus (PCR) NEGATIVE (Negative) Influenza Type A (PCR) NEGATIVE (Negative) Influenza Type B (PCR) NEGATIVE (Negative) RSV RNA Qual (PCR) NEGATIVE (Negative) 06/07/21 Range/Units 17:46 WBC (4.8-10.8) X10*3/uL RBC (4.20-5.50) X10*6/uL Hgb (12.0-16.0) g/dl Hct (37-47) % MCV (80-98) fL MCH (27.0-33.0) pg MCHC (31.0-35.0) g/dl RDW (11.0-16.0) % Plt Count (160-400) X10*3/uL MPV (9.4-12.3) fL Immature Gran % (Auto) (0.0-0.4) % Neut % (Auto) (45-73) % Lymph % (Auto) (20-40) % Andrews % (Auto) (2-11) % Eos % (Auto) (0-4) % Baso % (Auto) (0-2) % Lymph # (Auto) (1.2-4.9) X10*3/uL Andrews # (Auto) (0.1-1.2) X10*3/uL Eos # (Auto) (0.0-0.4) X10*3/uL Baso # (Auto) (0.0-0.2) X10*3/uL Abs Immat Gran (auto) (0.00-0.03) X10*3/uL Absolute Neuts (auto) (2.0-8.3) X10*3/uL Absolute Nucleated RBC (0.0-0.012) X10*3/uL Nucleated RBC % (auto) (0.0-0.2) /100WBC Sodium (135-145) mmol/L Potassium (3.3-5.1) mmol/L Chloride (96-108) mmol/L Carbon Dioxide (22-29) mmol/L Anion Gap (12-20) BUN (9-16) mg/dL Creatinine (0.5-1.4) mg/dL Estim Creat Clear Calc Estimated GFR Random Glucose (60-115) mg/dL Calcium (8.4-10.2) mg/dL Troponin I High Sens < 3.5 (<3.5-17.0) ng/L Coronavirus (PCR) (Negative) Influenza Type A (PCR) (Negative) Influenza Type B (PCR) (Negative) RSV RNA Qual (PCR) (Negative) Imaging Data Chest x-ray: Radiologist's impression: No acute cardiopulmonary process seen, no change from 05/29/2021. ECG Data Interpretation: Normal sinus rhythm at 99 beats per minutes, left axis deviation, normal intervals, no significant EKG changes. Discharge Plan Discharge Clinical Impression: Asthma Patient Disposition: Home, Self-Care Instructions: Bronchospasm (ED) Prescriptions: No Action escitalopram oxalate 10 mg tablet 1 tab PO QAM RF: 0 warfarin 5 mg Tablet 12.5 mg PO MOWEFRSA@1800 RF: 0 risperidone [Risperdal] 1 mg Tablet 1 mg PO BEDTIME RF: 0 albuterol sulfate [Ventolin HFA] 90 mcg/actuation Hfa Aerosol Inhaler 2 puff inhalation RQ4H PRN (Reason: Shortness Of Breath) Qty: 6.7 RF: 0 lorazepam [Ativan] 1 mg tablet 1 mg PO BID PRN (Reason: anxiety) Qty: 30 RF: 0 diltiazem HCl 180 mg Capsule,Extended Release 24 Hr 180 mg PO DAILY RF: 0 montelukast 10 mg Tablet 10 mg PO BEDTIME RF: 0 trazodone 100 mg Tablet 150 mg PO BEDTIME RF: 0 omeprazole 40 mg Capsule,Delayed Release(Dr/Ec) 40 mg PO BEDTIME RF: 0 warfarin 10 mg tablet 10 mg PO SUTUTH@1800 RF: 0 Trelegy Ellipta 100-62.5-25 mcg blister with device 1 puff PO DAILY RF: 0 ipratropium-albuterol 0.5 mg-3 mg(2.5 mg base)/3 mL Solution For Nebulization 3 ml INHALATION Q6H PRN (Reason: Wheezing) RF: 0 prednisone 20 mg tablet 40 mg PO DAILY Qty: 10 RF: 0 Referrals: Destin Esteban MD [Physician] - 2 days
[2021-06-07] MEDS: Magnesium Sulfate/H2O 2 GM/50 ML PIGGYBACK IV (17:18)
[2021-06-07] MEDS: Ketamine HCl 500 MG/5 ML VIAL 25 MG IVPUSH (17:19)
[2021-06-07] MEDS: methylPREDNISolone Sod Succ 125 MG/2 ML VIAL IVPUSH (17:19)
[2021-06-07 17:51] LABS: MANUAL DIFF FLAG NO
[2021-06-07 17:53] LABS: Basophils Percent Auto 0.2 % (0-2); Eosinophils Absolute Auto 0.2 X10*3/uL (0.0-0.4); Eosinophils Percent Auto 2.5 % (0-4); Hematocrit 29.7 % (37-47); Hemoglobin 9.4 g/dl (12.0-16.0); Imm Gran Abs Auto 0.03 X10*3/uL (0.00-0.03); Imm Gran Pct Auto 0.5 % (0.0-0.4); Lymphocytes Absolute Auto 1.9 X10*3/uL (1.2-4.9); Lymphocytes Percent Auto 29.7 % (20-40); Mean Corpuscular HGB Conc 31.6 g/dl (31.0-35.0); Mean Corpuscular Hemoglobin 26.3 pg (27.0-33.0); Mean Corpuscular Volume 83.2 fL (80-98); Mean Platelet Volume 11.9 fL (9.4-12.3); Monocytes Absolute Auto 0.5 X10*3/uL (0.1-1.2); Monocytes Percent Auto 7.9 % (2-11); Neutrophils Absolute Auto 3.8 X10*3/uL (2.0-8.3); Neutrophils Percent Auto 59.2 % (45-73); Platelet Count 236 X10*3/uL (160-400); Red Blood Count 3.57 X10*6/uL (4.20-5.50); White Blood Count 6.4 X10*3/uL (4.8-10.8)
[2021-06-07 18:25] LABS: Anion Gap 13 (12-20); Blood Urea Nitrogen 17 mg/dL (9-16); Calcium 9.3 mg/dL (8.4-10.2); Carbon Dioxide 23 mmol/L (22-29); Chloride 110 mmol/L (96-108); Creatinine Clr Calc Pharmacy 87.1; Estimated Glomerular Filt Rate > 60; Glucose Random 112 mg/dL (60-115); Potassium 4.1 mmol/L (3.3-5.1); Sodium 142 mmol/L (135-145)
[2021-06-07] MEDS: diphenhydrAMINE HCL 50 MG/ML VIAL 25 MG IVPUSH (18:30)
[2021-06-07 18:32] LABS: Troponin-I High Sensitivity < 3.5 ng/L (<3.5-17.0)
== END 2021-06-07 20:05 | disposition home or self-care (01) ==
PROVIDERS: Emergency Provider Emergency Medicine; PCP Family Medicine
DX: J45.909 Unspecified asthma, uncomplicated (principal); Z20.822 Contact with and (suspected) exposure to COVID-19; I10 Essential (primary) hypertension; F41.9 Anxiety disorder, unspecified; I48.91 Unspecified atrial fibrillation; Z79.01 Long term (current) use of anticoagulants; Z79.899 Other long term (current) drug therapy
CPT/HCPCS: 0241U; 36415; 71045; 80048; 84484; 85025; 93005; 96365; 96366; 96375; 99284; J1200; J1642; J2930; J3475

== ENCOUNTER 2021-06-07 22:09 | Emergency (ER) | payer MEDICARE, MEDICAID, SELFPAY ==
[2021-06-07 22:31] VITALS: BP 137/81; PULSE 113; RESP 16; TEMP 36.9; O2SAT 94; BMI 43.0
[2021-06-08 05:37] VITALS: BP 151/82; PULSE 101; RESP 20; TEMP 36.7; O2SAT 91
--- NOTE | 2021-06-08 05:47 | PC.NURSE ---
PT SEATED IN GUSMAN 1 BED, AMBULATORY TO BATHROOM WITH STEADY GAIT. PT SPEAKING IN FULL SENTENCES AND IN NO DISTRESS. PT HAS A FREQUENT COUGH. PT HAS A MED PORT THAT NEEDS TO BE ACCESSED FOR LABS AND MEDICATION, POOR PERIPHERAL ACCESS. AWAITING MD EVALUATION FOR ORDERS, PT JUST DISCHARGED 8 HOURS AGO.
--- NOTE | 2021-06-08 06:01 | ED.SOB ---
HPI - SOB/Dyspnea General Chief Complaint: Dyspnea Stated Complaint: diff breathing Time Seen by Provider: 06/08/21 05:45 Source: patient Mode of arrival: ambulatory Limitations: no limitations History of Present Illness HPI Narrative: 50-year-old female who presents emergency department for evaluation of shortness of breath cough diaphoresis and vomiting. The patient was seen yesterday 06/07/2021 at around 4:25 p.m. for coughing. The patient had a negative chest x-ray and a negative COVID-19 test. The patient was discharged home and not given a medications. She states that she got home she felt short of breath and began coughing again. She states that her heart was racing and she took her temperature it was 100? F. she states she could not get any air so she came back to the emergency department. In reviewing the record, the note states that she did not receive any medications but the patient states that she was treated with ketamine, Benadryl and Solu-Medrol. She also states she was incontinent of urine and she has been urinating frequently, she denied dysuria. Related Data Home Medications Medication Instructions Recorded Confirmed diltiazem HCl 180 mg capsule,24 180 mg PO DAILY 09/03/20 05/13/21 hr,extended release montelukast 10 mg tablet 10 mg PO BEDTIME 09/03/20 05/13/21 trazodone 100 mg tablet 150 mg PO BEDTIME 09/03/20 05/13/21 omeprazole 40 mg capsule,delayed 40 mg PO BEDTIME 02/16/21 05/13/21 release warfarin 10 mg tablet 10 mg PO SUTUTH@1800 03/06/21 05/13/21 fluticasone fur. 100 mcg-umeclid 1 puff PO DAILY 03/08/21 05/13/21 62.5 mcg-vilant 25 mcg inhalat.powder (Trelegy Ellipta) ipratropium 0.5 mg-albuterol 3 mg 3 ml INHALATION Q6H PRN 03/08/21 05/13/21 (2.5 mg base)/3 mL nebulization soln escitalopram oxalate 10 mg tablet 1 tab PO QAM 05/13/21 05/13/21 risperidone 1 mg tablet (Risperdal) 1 mg PO BEDTIME 07/25/21 07/25/21 warfarin 5 mg tablet 12.5 mg PO LIZZETTE@1800 05/13/21 05/13/21 Previous Rx's Medication Instructions Recorded albuterol sulfate 90 mcg/actuation 2 puff INHALATION RQ4H PRN #6.7 g 05/17/21 aerosol inhaler (Ventolin HFA) lorazepam 1 mg tablet (Ativan) 1 mg PO BID PRN #30 tab 05/17/21 prednisone 20 mg tablet 40 mg PO DAILY #10 tab 05/29/21 Allergies Allergy/AdvReac Type Severity Reaction Status Date / Time azithromycin Allergy Intermediate ITCHING Verified 03/06/21 20:19 [From ZITHROMAX Z-XANDER] amoxicillin [AMOXICILLIN] Allergy Unknown UNKNOWN, Verified 03/06/21 20:19 hives, swelling budesonide [From SYMBICORT] Allergy Unknown UNKNOWN Verified 03/06/21 20:19 cefpodoxime [From VANTIN] Allergy Unknown UNKNOWN Verified 03/06/21 20:19 cefuroxime [From CEFTIN] Allergy Unknown UNKNOWN Verified 03/06/21 20:19 Cephalosporins Allergy Unknown UNKNOWN Verified 03/06/21 20:19 [CEPHALOSPORINS] ciprofloxacin [From CIPRO] Allergy Unknown UNKNOWN Verified 03/06/21 20:19 diphtheria,pertussis Allergy Unknown Unknown Verified 03/06/21 20:19 (acellular),te [Adacel(Tdap Adolesn/Adult)(PF)] erythromycin base Allergy Unknown UNKNOWN Verified 03/06/21 20:19 [ERYTHROMYCIN BASE] fluticasone [Advair Diskus] Allergy Unknown Unknown Verified 03/06/21 20:19 formoterol [From SYMBICORT] Allergy Unknown UNKNOWN Verified 03/06/21 20:19 hydrocodone [From VICODIN] Allergy Unknown unknown Verified 03/06/21 20:19 Iodinated Contrast Media Allergy Unknown UNKNOWN Verified 03/06/21 20:19 [CONTRAST, IV] levofloxacin [From LEVAQUIN] Allergy Unknown UNKNOWN Verified 03/06/21 20:19 penicillin G Allergy Unknown Unknown Verified 03/06/21 20:19 penicillin V Allergy Unknown Unknown Verified 03/06/21 20:19 Penicillins [PENICILLINS] Allergy Unknown UNKNOWN Verified 03/06/21 20:19 salmeterol [Advair Diskus] Allergy Unknown Unknown Verified 03/06/21 20:19 sertraline [From ZOLOFT] Allergy Unknown SUICIDAL Verified 03/06/21 20:19 Sulfa (Sulfonamide Allergy Unknown hives Verified 03/06/21 20:19 Antibiotics) tetanus and diphtheria Allergy Unknown UNKNOWN Verified 03/06/21 20:19 toxoids [TETANUS & DIPHTHERIA TOXOIDS] Vantin Allergy Unknown Unknown Verified 03/06/21 20:19 ketorolac [From TORADOL] AdvReac Mild ITCHING Verified 03/06/21 20:19 Ceftin Allergy Unknown Unknown Uncoded 03/06/21 20:19 IV dye Allergy Unknown Unknown Uncoded 03/06/21 20:19 Symbicort Allergy Unknown Unknown Uncoded 03/06/21 20:19 Tetanus Allergy Unknown Unknown Uncoded 03/06/21 20:19 Erythromycin Allergy Unknown Uncoded 03/06/21 20:19 Review of Systems Review of Systems: Yes all other systems are reviewed and are negative PMFSH Past Medical History Medical History Anxiety Asthma Atrial fibrillation CHF (congestive heart failure) Depression DVT (deep venous thrombosis) Hypertension Irritable bowel Morbid obesity Social History Social History Household Members: Spouse and Children Housing: Apartment Housing Other:: duplex Do you presently have visiting nurse or other home services: No Alcohol intake: former Patient Tobacco Use Status: Former Tobacco user e-Cigarette/Vaping Use: Never Used Second Hand Smoke Exposure: No Substance Use Type: Marijuana Advance Directives: Yes Advance Directives on File: Yes Advance Directives Date on File: 09/06/20 Patient : No service: No Current occupational status: disabled Sexual orientation: Straight/Heterosexual Physical Exam Vital Signs: Vital Signs: Last Vital Signs Temp 98.1 F 06/08/21 05:37 Pulse 101 H 06/08/21 05:37 Resp 20 06/08/21 05:37 BP 151/82 H 06/08/21 05:37 Pulse Ox 91 L 06/08/21 05:37 Body Mass Index 43.0 Const: Other: Very anxious appearing female, does not appear to be in distress, talks in full sentences without any difficulty. HENMT: Head: Yes normal to inspection, Yes normocephalic and Yes atraumatic Ears: external ears normal General nose exam: Normal external nose present Face and sinus: Yes normal facial exam Mouth: Normal oral and palatal mucosa present Throat: Yes posterior oropharynx normal Eyes: General: appearance normal, both eyes and all related structures Pupils: Equal, round and reactive pupils present Neck: Neck: Yes normal visual inspection, Yes no lymphadenopathy, Yes trachea midline and Yes supple Chest: Chest palpation & inspection: normal inspection of the chest and normal palpation of entire chest wall Resp: Effort & Inspection: normal respiratory effort and able to speak in complete sentences Auscultation: clear to auscultation bilaterally Cardio: Rate: regular rate Rhythm: regular rhythm Heart sounds: S1 normal heart sound present, S2 normal heart sound present and no murmurs GI: Inspection: Yes normal to inspection Palpation (GI): Soft to palpation, nontender and no guarding Auscultation: normal bowel sounds : General: Yes no CVA tenderness Back/Spine/Pelvis: Back: no CVA tenderness Skin: General skin exam: no rashes or lesions noted Neuro: Cranial nerves: Yes CN's II-XII intact bilaterally and Yes Equal, round and reactive pupils present Cognition (Neuro): normal cognition Motor exam (neuro): 5/5 motor strength present throughout Extrem: General: Yes normal to inspection Psych: Appearance: grossly normal Speech and movement: Normal speech and movement present Affect: normal affect Attitude: cooperative Thought process: Normal thought process present Thought content: Normal thought content present Course Course Course Narrative: 50-year-old female who presents emergency department for evaluation of cough, low-grade fever, vomiting, diaphoresis and shortness of breath. Patient was seen yesterday in the emergency department with a cough and had a negative chest x-ray negative COVID 19 test. On presentation this morning she does appear to be anxious, lung exam was clear with no wheezing. Her vital signs did reveal tachycardia and her O2 saturation was 91-94%. The the patient did not give us a urine sample and I did tell her that we could check for urinary tract infection. The patient requested ketamine treatment because she states that this helps with her shortness of breath. I told her that at this time I do not think that she needs ketamine or any other treatment for her cough since she had a negative chest x-ray and also her lung exam was normal. The patient got angry and decided to leave the emergency department without getting discharge papers. Discharge Plan Discharge Clinical Impression: Cough, Anxiety, Acute dyspnea Patient Disposition: Home, Self-Care Additional Instructions: Patient did not want to wait for her discharge papers and left emergency department. Prescriptions: No Action escitalopram oxalate 10 mg tablet 1 tab PO QAM RF: 0 warfarin 5 mg Tablet 12.5 mg PO MOWEFRSA@1800 RF: 0 risperidone [Risperdal] 1 mg Tablet 1 mg PO BEDTIME RF: 0 albuterol sulfate [Ventolin HFA] 90 mcg/actuation Hfa Aerosol Inhaler 2 puff inhalation RQ4H PRN (Reason: Shortness Of Breath) Qty: 6.7 RF: 0 lorazepam [Ativan] 1 mg tablet 1 mg PO BID PRN (Reason: anxiety) Qty: 30 RF: 0 diltiazem HCl 180 mg Capsule,Extended Release 24 Hr 180 mg PO DAILY RF: 0 montelukast 10 mg Tablet 10 mg PO BEDTIME RF: 0 trazodone 100 mg Tablet 150 mg PO BEDTIME RF: 0 omeprazole 40 mg Capsule,Delayed Release(Dr/Ec) 40 mg PO BEDTIME RF: 0 warfarin 10 mg tablet 10 mg PO SUTUTH@1800 RF: 0 Trelegy Ellipta 100-62.5-25 mcg blister with device 1 puff PO DAILY RF: 0 ipratropium-albuterol 0.5 mg-3 mg(2.5 mg base)/3 mL Solution For Nebulization 3 ml INHALATION Q6H PRN (Reason: Wheezing) RF: 0 prednisone 20 mg tablet 40 mg PO DAILY Qty: 10 RF: 0
== END 2021-06-08 06:23 | disposition home or self-care (01) ==
PROVIDERS: Emergency Provider Emergency Medicine Emergency Medical Services; PCP Family Medicine
DX: R05 Cough (principal); F41.9 Anxiety disorder, unspecified; R06.00 Dyspnea, unspecified; I10 Essential (primary) hypertension; I48.91 Unspecified atrial fibrillation; Z86.718 Personal history of other venous thrombosis and embolism; Z79.01 Long term (current) use of anticoagulants; Z79.899 Other long term (current) drug therapy
CPT/HCPCS: 0241U; 36415; 71045; 80048; 84484; 85025; 93005; 96365; 96366; 96375; 99282; 99284; J1200; J1642; J2930; J3475

== ENCOUNTER 2021-06-20 16:54 | Emergency (ER) | payer MEDICARE, MEDICAID, SELFPAY ==
--- NOTE | 2021-06-20 | ECG_ITS ---
Test Reason : PALPITATIONS Blood Pressure : / mmHG Vent. Rate : 084 BPM Atrial Rate : 084 BPM P-R Int : 164 ms QRS Dur : 080 ms QT Int : 390 ms P-R-T Axes : 044 -08 041 degrees QTc Int : 460 ms Normal sinus rhythm Low voltage QRS Cannot rule out Anterior infarct (cited on or before 29-MAY-2021) Abnormal ECG When compared with ECG of 07-JUN-2021 15:34, No significant change was found Referred By: Generic ED Physician Electronically Signed By:REYNA POWER
[2021-06-20 17:10] VITALS: BP 127/65; PULSE 87; RESP 16; TEMP 37; O2SAT 99; BMI 43.5
--- NOTE | 2021-06-20 17:37 | ED.ARRPALP ---
HPI - Arrhythmia/Palpitations General Chief Complaint: Arrhythmia/Palpitations Stated Complaint: palpitations Time Seen by Provider: 06/20/21 17:36 Source: patient Mode of arrival: ambulatory Limitations: no limitations History of Present Illness HPI narrative: Patient has history of hypertension, anxiety, depression, morbid obesity, DVT, paroxysmal AFib, CHF on Coumadin comes here for palpitation for last few days off and on, at home heart rate was in the range of 150in the ER patient's heart rate was 86 beats per minute normal sinus rhythm presents complaining of dizziness and chest pressure patient also noticed right flank pain and slight blood tinge blood when she wiped in the front Related Data Home Medications Medication Instructions Recorded Confirmed diltiazem HCl 180 mg capsule,24 180 mg PO DAILY 09/03/20 05/13/21 hr,extended release montelukast 10 mg tablet 10 mg PO BEDTIME 09/03/20 05/13/21 trazodone 100 mg tablet 150 mg PO BEDTIME 09/03/20 05/13/21 omeprazole 40 mg capsule,delayed 40 mg PO BEDTIME 02/16/21 05/13/21 release warfarin 10 mg tablet 10 mg PO SUTUTH@1800 03/06/21 05/13/21 fluticasone fur. 100 mcg-umeclid 1 puff PO DAILY 03/08/21 05/13/21 62.5 mcg-vilant 25 mcg inhalat.powder (Trelegy Ellipta) ipratropium 0.5 mg-albuterol 3 mg 3 ml INHALATION Q6H PRN 03/08/21 05/13/21 (2.5 mg base)/3 mL nebulization soln escitalopram oxalate 10 mg tablet 1 tab PO QAM 05/13/21 05/13/21 risperidone 1 mg tablet (Risperdal) 1 mg PO BEDTIME 05/13/21 05/13/21 warfarin 5 mg tablet 12.5 mg PO MOWEFRSA@1800 05/13/21 05/13/21 Previous Rx's Medication Instructions Recorded albuterol sulfate 90 mcg/actuation 2 puff INHALATION RQ4H PRN #6.7 g 05/17/21 aerosol inhaler (Ventolin HFA) lorazepam 1 mg tablet (Ativan) 1 mg PO BID PRN #30 tab 05/17/21 prednisone 20 mg tablet 40 mg PO DAILY #10 tab 05/29/21 Allergies Allergy/AdvReac Type Severity Reaction Status Date / Time azithromycin Allergy Intermediate ITCHING Verified 03/06/21 20:19 [From ZITHROMAX Z-XANDER] amoxicillin [AMOXICILLIN] Allergy Unknown UNKNOWN, Verified 03/06/21 20:19 hives, swelling budesonide [From SYMBICORT] Allergy Unknown UNKNOWN Verified 03/06/21 20:19 cefpodoxime [From VANTIN] Allergy Unknown UNKNOWN Verified 03/06/21 20:19 cefuroxime [From CEFTIN] Allergy Unknown UNKNOWN Verified 03/06/21 20:19 Cephalosporins Allergy Unknown UNKNOWN Verified 03/06/21 20:19 [CEPHALOSPORINS] ciprofloxacin [From CIPRO] Allergy Unknown UNKNOWN Verified 03/06/21 20:19 diphtheria,pertussis Allergy Unknown Unknown Verified 03/06/21 20:19 (acellular),te [Adacel(Tdap Adolesn/Adult)(PF)] erythromycin base Allergy Unknown UNKNOWN Verified 03/06/21 20:19 [ERYTHROMYCIN BASE] fluticasone [Advair Diskus] Allergy Unknown Unknown Verified 03/06/21 20:19 formoterol [From SYMBICORT] Allergy Unknown UNKNOWN Verified 03/06/21 20:19 hydrocodone [From VICODIN] Allergy Unknown unknown Verified 03/06/21 20:19 Iodinated Contrast Media Allergy Unknown UNKNOWN Verified 03/06/21 20:19 [CONTRAST, IV] levofloxacin [From LEVAQUIN] Allergy Unknown UNKNOWN Verified 03/06/21 20:19 penicillin G Allergy Unknown Unknown Verified 03/06/21 20:19 penicillin V Allergy Unknown Unknown Verified 03/06/21 20:19 Penicillins [PENICILLINS] Allergy Unknown UNKNOWN Verified 03/06/21 20:19 salmeterol [Advair Diskus] Allergy Unknown Unknown Verified 03/06/21 20:19 sertraline [From ZOLOFT] Allergy Unknown SUICIDAL Verified 03/06/21 20:19 Sulfa (Sulfonamide Allergy Unknown hives Verified 03/06/21 20:19 Antibiotics) tetanus and diphtheria Allergy Unknown UNKNOWN Verified 03/06/21 20:19 toxoids [TETANUS & DIPHTHERIA TOXOIDS] Vantin Allergy Unknown Unknown Verified 03/06/21 20:19 ketorolac [From TORADOL] AdvReac Mild ITCHING Verified 03/06/21 20:19 Ceftin Allergy Unknown Unknown Uncoded 03/06/21 20:19 IV dye Allergy Unknown Unknown Uncoded 03/06/21 20:19 Symbicort Allergy Unknown Unknown Uncoded 03/06/21 20:19 Tetanus Allergy Unknown Unknown Uncoded 03/06/21 20:19 Erythromycin Allergy Unknown Uncoded 03/06/21 20:19 Review of Systems Review of Systems: Constitutional : No Weight loss, No Fever, No Chills ENT/Mouth : No sore throat, No Rhinorrhea Eyes: No Eye Pain, No Swelling Cardiovascular : + Chest Pain, ++ palpitations Respiratory : No Cough, No Sputum, no shortness of breath Gastrointestinal : no Nausea, No Vomiting, No Diarrhea, No abdominal Pain, no black stools right flank pain++ Genitourinary : No Dysuria, No Urinary Frequency Musculoskeletal : No joint pain, No Myalgias, No Joint Swelling Skin : No Skin Lesions, No rash Neuro : No Weakness, No Numbness, No Dizziness, No Headache Psych : No Anxiety/Panic, No Depression Heme/Lymph: No Bruising, No Lymphadenopathy Endocrine : No Polyuria, No Polydipsia All other systems reviewed and are negative [facility] Past Medical History Medical History Anxiety Asthma Atrial fibrillation CHF (congestive heart failure) Depression DVT (deep venous thrombosis) Hypertension Irritable bowel Morbid obesity Social History Social History Household Members: Spouse and Children Housing: Apartment Housing Other:: duplex Do you presently have visiting nurse or other home services: No Alcohol intake: former Patient Tobacco Use Status: Former Tobacco user e-Cigarette/Vaping Use: Never Used Second Hand Smoke Exposure: No Substance Use Type: Marijuana Advance Directives: Yes Advance Directives on File: Yes Advance Directives Date on File: 09/06/20 service: No Current occupational status: disabled Sexual orientation: Straight/Heterosexual Physical Exam Vital Signs: Vital Signs: Last Vital Signs Temp 98.6 F 06/20/21 17:10 Pulse 87 06/20/21 17:10 Resp 16 06/20/21 17:10 BP 127/65 06/20/21 17:10 Pulse Ox 99 06/20/21 17:10 Body Mass Index 43.5 Appearance: Alert. Oriented X3. No acute distress. Eyes: No pallor or icterus ENT: Pharynx normal. Oral Mucosa moist Neck: Normal inspection. Neck supple. CVS: Normal heart rate and rhythm. Pulses normal. Respiratory: No respiratory distress. Equal air entry bilateral, no wheezing/rales/rhonchi Abdomen: Soft and nontender. Bowel sounds are present, no mass palpable, mild right CVA tenderness Skin: Skin warm and dry. Normal skin color. Normal skin turgor. Extremities: No lower extremity edema. No calf tenderness Neuro: Oriented X 3. No motor deficit. MDM - Arrhythmia/Palpitations MDM Narrative Medical decision making narrative: Patient with palpitation for weeks got worse for last 4 days his seen medical record consultant suspecting dysautonomia plan to place on Holter monitoring . On arrival patient was sinus rhythm with heart rate of 84 beats per minute with do the labs workup Labs are stable patient is in sinus rhythm with heart rate in 60s already has a plan to see medical record consultant to implanted loop recorder for the further diagnosis. Will discharge patient home Lab Data Attestation: I reviewed the patient's lab results. Result diagrams: 06/20/21 18:57 06/20/21 18:57 Labs: Lab Results 06/20/21 06/20/21 06/20/21 Range/Units 18:57 18:57 18:57 WBC 6.4 (4.8-10.8) X10*3/uL RBC 3.52 L (4.20-5.50) X10*6/uL Hgb 9.4 L (12.0-16.0) g/dl Hct 29.1 L (37-47) % MCV 82.7 (80-98) fL MCH 26.7 L (27.0-33.0) pg MCHC 32.3 (31.0-35.0) g/dl RDW 16.9 H (11.0-16.0) % Plt Count 211 (160-400) X10*3/uL MPV 11.4 (9.4-12.3) fL Immature Gran % (Auto) 0.5 H (0.0-0.4) % Neut % (Auto) 62.4 (45-73) % Lymph % (Auto) 26.7 (20-40) % Kings % (Auto) 7.2 (2-11) % Eos % (Auto) 3.0 (0-4) % Baso % (Auto) 0.2 (0-2) % Lymph # (Auto) 1.7 (1.2-4.9) X10*3/uL Kings # (Auto) 0.5 (0.1-1.2) X10*3/uL Eos # (Auto) 0.2 (0.0-0.4) X10*3/uL Baso # (Auto) 0.0 (0.0-0.2) X10*3/uL Abs Immat Gran (auto) 0.03 (0.00-0.03) X10*3/uL Absolute Neuts (auto) 4.0 (2.0-8.3) X10*3/uL Absolute Nucleated RBC 0.000 (0.0-0.012) X10*3/uL Nucleated RBC % (auto) 0.0 (0.0-0.2) /100WBC PT 32.9 H D (9.9-13.0) SEC INR 2.8 H (0.9-1.1) APTT 57.0 H D (24.1-38.0) SEC Sodium 138 (135-145) mmol/L Potassium 4.0 (3.3-5.1) mmol/L Chloride 106 (96-108) mmol/L Carbon Dioxide 25 (22-29) mmol/L Anion Gap 11 L (12-20) BUN 13 (9-16) mg/dL Creatinine 0.77 (0.5-1.4) mg/dL Estim Creat Clear Calc 92.4 Estimated GFR > 60 Random Glucose 172 H D (60-115) mg/dL Calcium 9.5 (8.4-10.2) mg/dL Magnesium 2.9 H (1.6-2.6) mg/dL Troponin I High Sens (<3.5-17.0) ng/L B-Natriuretic Peptide (<100) pg/mL Urine Color Urine Appearance Urine pH (5.0-8.0) Ur Specific [place] (1.005-1.025) Urine Protein (NEG-TRACE) MG/DL Urine Glucose (UA) (NEG) MG/DL Urine Ketones (NEG) MG/DL Urine Blood (NEG) Urine Nitrite (NEG) Ur Leukocyte Esterase (NEG) 06/20/21 06/20/21 06/20/21 Range/Units 18:57 18:57 18:57 WBC (4.8-10.8) X10*3/uL RBC (4.20-5.50) X10*6/uL Hgb (12.0-16.0) g/dl Hct (37-47) % MCV (80-98) fL MCH (27.0-33.0) pg MCHC (31.0-35.0) g/dl RDW (11.0-16.0) % Plt Count (160-400) X10*3/uL MPV (9.4-12.3) fL Immature Gran % (Auto) (0.0-0.4) % Neut % (Auto) (45-73) % Lymph % (Auto) (20-40) % Kings % (Auto) (2-11) % Eos % (Auto) (0-4) % Baso % (Auto) (0-2) % Lymph # (Auto) (1.2-4.9) X10*3/uL Kings # (Auto) (0.1-1.2) X10*3/uL Eos # (Auto) (0.0-0.4) X10*3/uL Baso # (Auto) (0.0-0.2) X10*3/uL Abs Immat Gran (auto) (0.00-0.03) X10*3/uL Absolute Neuts (auto) (2.0-8.3) X10*3/uL Absolute Nucleated RBC (0.0-0.012) X10*3/uL Nucleated RBC % (auto) (0.0-0.2) /100WBC PT (9.9-13.0) SEC INR (0.9-1.1) APTT (24.1-38.0) SEC Sodium (135-145) mmol/L Potassium (3.3-5.1) mmol/L Chloride (96-108) mmol/L Carbon Dioxide (22-29) mmol/L Anion Gap (12-20) BUN (9-16) mg/dL Creatinine (0.5-1.4) mg/dL Estim Creat Clear Calc Estimated GFR Random Glucose (60-115) mg/dL Calcium (8.4-10.2) mg/dL Magnesium Cancelled (1.6-2.6) mg/dL Troponin I High Sens < 3.5 (<3.5-17.0) ng/L B-Natriuretic Peptide 15 (<100) pg/mL Urine Color Urine Appearance Urine pH (5.0-8.0) Ur Specific [place] (1.005-1.025) Urine Protein (NEG-TRACE) MG/DL Urine Glucose (UA) (NEG) MG/DL Urine Ketones (NEG) MG/DL Urine Blood (NEG) Urine Nitrite (NEG) Ur Leukocyte Esterase (NEG) 06/20/21 Range/Units 18:57 WBC (4.8-10.8) X10*3/uL RBC (4.20-5.50) X10*6/uL Hgb (12.0-16.0) g/dl Hct (37-47) % MCV (80-98) fL MCH (27.0-33.0) pg MCHC (31.0-35.0) g/dl RDW (11.0-16.0) % Plt Count (160-400) X10*3/uL MPV (9.4-12.3) fL Immature Gran % (Auto) (0.0-0.4) % Neut % (Auto) (45-73) % Lymph % (Auto) (20-40) % Kings % (Auto) (2-11) % Eos % (Auto) (0-4) % Baso % (Auto) (0-2) % Lymph # (Auto) (1.2-4.9) X10*3/uL Kings # (Auto) (0.1-1.2) X10*3/uL Eos # (Auto) (0.0-0.4) X10*3/uL Baso # (Auto) (0.0-0.2) X10*3/uL Abs Immat Gran (auto) (0.00-0.03) X10*3/uL Absolute Neuts (auto) (2.0-8.3) X10*3/uL Absolute Nucleated RBC (0.0-0.012) X10*3/uL Nucleated RBC % (auto) (0.0-0.2) /100WBC PT (9.9-13.0) SEC INR (0.9-1.1) APTT (24.1-38.0) SEC Sodium (135-145) mmol/L Potassium (3.3-5.1) mmol/L Chloride (96-108) mmol/L Carbon Dioxide (22-29) mmol/L Anion Gap (12-20) BUN (9-16) mg/dL Creatinine (0.5-1.4) mg/dL Estim Creat Clear Calc Estimated GFR Random Glucose (60-115) mg/dL Calcium (8.4-10.2) mg/dL Magnesium (1.6-2.6) mg/dL Troponin I High Sens (<3.5-17.0) ng/L B-Natriuretic Peptide (<100) pg/mL Urine Color YELLOW Urine Appearance CLEAR Urine pH 7.5 (5.0-8.0) Ur Specific [place] 1.010 (1.005-1.025) Urine Protein NEG (NEG-TRACE) MG/DL Urine Glucose (UA) NEG (NEG) MG/DL Urine Ketones NEG (NEG) MG/DL Urine Blood NEG (NEG) Urine Nitrite NEG (NEG) Ur Leukocyte Esterase NEG (NEG) ECG Data Attestation: I personally reviewed and interpreted this ECG as follows: Interpretation: Normal sinus rhythm heart rate 84 beats per minute normal intervals normal axis no acute ischemic changes Discharge Plan Discharge Clinical Impression: Palpitations Patient Disposition: Home, Self-Care Instructions: Heart Palpitations (ED) Additional Instructions: Follow-up with your medical record consultant next week as scheduled for further management and care Continue medication as prescribed Prescriptions: No Action escitalopram oxalate 10 mg tablet 1 tab PO QAM RF: 0 warfarin 5 mg Tablet 12.5 mg PO MOWEFRSA@1800 RF: 0 risperidone [Risperdal] 1 mg Tablet 1 mg PO BEDTIME RF: 0 albuterol sulfate [Ventolin HFA] 90 mcg/actuation Hfa Aerosol Inhaler 2 puff inhalation RQ4H PRN (Reason: Shortness Of Breath) Qty: 6.7 RF: 0 lorazepam [Ativan] 1 mg tablet 1 mg PO BID PRN (Reason: anxiety) Qty: 30 RF: 0 diltiazem HCl 180 mg Capsule,Extended Release 24 Hr 180 mg PO DAILY RF: 0 montelukast 10 mg Tablet 10 mg PO BEDTIME RF: 0 trazodone 100 mg Tablet 150 mg PO BEDTIME RF: 0 omeprazole 40 mg Capsule,Delayed Release(Dr/Ec) 40 mg PO BEDTIME RF: 0 warfarin 10 mg tablet 10 mg PO SUTUTH@1800 RF: 0 Trelegy Ellipta 100-62.5-25 mcg blister with device 1 puff PO DAILY RF: 0 ipratropium-albuterol 0.5 mg-3 mg(2.5 mg base)/3 mL Solution For Nebulization 3 ml INHALATION Q6H PRN (Reason: Wheezing) RF: 0 prednisone 20 mg tablet 40 mg PO DAILY Qty: 10 RF: 0 Interventions: ED Discharge Assessment Last Done: 06/20/21 21:29 Discharge Date/Time: 06/20/21 21:30
[2021-06-20 19:08] LABS: MANUAL DIFF FLAG NO
[2021-06-20 19:12] LABS: Basophils Percent Auto 0.2 % (0-2); Eosinophils Absolute Auto 0.2 X10*3/uL (0.0-0.4); Hematocrit 29.1 % (37-47); Hemoglobin 9.4 g/dl (12.0-16.0); Imm Gran Abs Auto 0.03 X10*3/uL (0.00-0.03); Imm Gran Pct Auto 0.5 % (0.0-0.4); Lymphocytes Absolute Auto 1.7 X10*3/uL (1.2-4.9); Lymphocytes Percent Auto 26.7 % (20-40); Mean Corpuscular HGB Conc 32.3 g/dl (31.0-35.0); Mean Corpuscular Hemoglobin 26.7 pg (27.0-33.0); Mean Corpuscular Volume 82.7 fL (80-98); Mean Platelet Volume 11.4 fL (9.4-12.3); Monocytes Absolute Auto 0.5 X10*3/uL (0.1-1.2); Monocytes Percent Auto 7.2 % (2-11); Neutrophils Percent Auto 62.4 % (45-73); Platelet Count 211 X10*3/uL (160-400); Red Blood Count 3.52 X10*6/uL (4.20-5.50); Red Cell Distribution Width 16.9 % (11.0-16.0); White Blood Count 6.4 X10*3/uL (4.8-10.8)
[2021-06-20 19:14] LABS: Glucose Urine UA NEG (NEG); Leukocyte Esterase Urine NEG (NEG); Nitrite Urine NEG (NEG); PH 7.5 (5.0-8.0); Urine Blood NEG (NEG); Urine Ketones NEG (NEG); Urine Protein NEG (NEG-TRACE)
[2021-06-20 19:16] LABS: Appearance Urine CLEAR; Color Urine YELLOW
[2021-06-20 19:26] LABS: Anion Gap 11 (12-20); Blood Urea Nitrogen 13 mg/dL (9-16); Calcium 9.5 mg/dL (8.4-10.2); Carbon Dioxide 25 mmol/L (22-29); Chloride 106 mmol/L (96-108); Creatinine Clr Calc Pharmacy 92.4; Estimated Glomerular Filt Rate > 60; Glucose Random 172 mg/dL (60-115); Magnesium 2.9 mg/dL (1.6-2.6); Sodium 138 mmol/L (135-145)
[2021-06-20 19:28] LABS: INTERNATIONAL NORM RATIO 2.8 (0.9-1.1); Prothrombin Time 32.9 SEC (9.9-13.0)
[2021-06-20 19:31] LABS: B Type Natriuretic Peptide 15 pg/mL (<100); Troponin-I High Sensitivity < 3.5 ng/L (<3.5-17.0)
== END 2021-06-20 21:30 | disposition home or self-care (01) ==
PROVIDERS: Emergency Provider Internal Medicine; PCP Family Medicine
DX: R00.2 Palpitations (principal); I10 Essential (primary) hypertension; I48.0 Paroxysmal atrial fibrillation; Z86.718 Personal history of other venous thrombosis and embolism; Z79.01 Long term (current) use of anticoagulants
CPT/HCPCS: 36415; 80048; 81003; 83735; 83880; 84484; 85025; 85610; 85730; 93005; 99283; J1642

== ENCOUNTER 2021-06-21 12:17 | Emergency (ER) | payer MEDICARE, MEDICAID, SELFPAY ==
[2021-06-21 12:20] VITALS: BP 153/94; PULSE 129; RESP 30; TEMP 36.6; O2SAT 98; BMI 43.5
== END 2021-06-21 13:22 | disposition left against medical advice (07) ==
PROVIDERS: Emergency Provider Emergency Medicine; PCP Family Medicine
DX: R06.02 Shortness of breath (principal)
CPT/HCPCS: 99281; 99282

== ENCOUNTER 2021-06-22 10:57 | Emergency (ER) | payer MEDICARE, MEDICAID, SELFPAY ==
[2021-06-22 10:59] VITALS: BP 140/72; PULSE 97; RESP 22; TEMP 36.1; O2SAT 97; BMI 43.5
--- NOTE | 2021-06-22 11:19 | ED.GENADULT ---
HPI - General Adult General Chief complaint: Allergic Reaction Stated complaint: ALLERGIC REACTION DIFF BREATHING Time Seen by Provider: 06/22/21 11:17 Source: patient Mode of arrival: ambulatory History of Present Illness HPI narrative: Patient reports that she was seen at [facility] last night in received [facility] but reports mild shortness of breath with a scratchy throat, cough, itchiness, lack of energy. Patient denies any lip/tongue swelling. Related Data Home Medications Medication Instructions Recorded Confirmed diltiazem HCl 180 mg capsule,24 180 mg PO DAILY 09/03/20 05/13/21 hr,extended release montelukast 10 mg tablet 10 mg PO BEDTIME 09/03/20 05/13/21 trazodone 100 mg tablet 150 mg PO BEDTIME 09/03/20 05/13/21 omeprazole 40 mg capsule,delayed 40 mg PO BEDTIME 02/16/21 05/13/21 release warfarin 10 mg tablet 10 mg PO SUTUTH@1800 03/06/21 05/13/21 fluticasone fur. 100 mcg-umeclid 1 puff PO DAILY 03/08/21 05/13/21 62.5 mcg-vilant 25 mcg inhalat.powder (Trelegy Ellipta) ipratropium 0.5 mg-albuterol 3 mg 3 ml INHALATION Q6H PRN 03/08/21 05/13/21 (2.5 mg base)/3 mL nebulization soln escitalopram oxalate 10 mg tablet 1 tab PO QAM 05/13/21 05/13/21 risperidone 1 mg tablet (Risperdal) 1 mg PO BEDTIME 05/13/21 05/13/21 warfarin 5 mg tablet 12.5 mg PO MOWEFRSA@1800 05/13/21 05/13/21 Previous Rx's Medication Instructions Recorded albuterol sulfate 90 mcg/actuation 2 puff INHALATION RQ4H PRN #6.7 g 05/17/21 aerosol inhaler (Ventolin HFA) lorazepam 1 mg tablet (Ativan) 1 mg PO BID PRN #30 tab 05/17/21 prednisone 20 mg tablet 40 mg PO DAILY #10 tab 05/29/21 Allergies Allergy/AdvReac Type Severity Reaction Status Date / Time azithromycin Allergy Intermediate ITCHING Verified 03/06/21 20:19 [From ZITHROMAX Z-XANDER] amoxicillin [AMOXICILLIN] Allergy Unknown UNKNOWN, Verified 03/06/21 20:19 hives, swelling budesonide [From SYMBICORT] Allergy Unknown UNKNOWN Verified 03/06/21 20:19 cefpodoxime [From VANTIN] Allergy Unknown UNKNOWN Verified 03/06/21 20:19 cefuroxime [From CEFTIN] Allergy Unknown UNKNOWN Verified 03/06/21 20:19 Cephalosporins Allergy Unknown UNKNOWN Verified 03/06/21 20:19 [CEPHALOSPORINS] ciprofloxacin [From CIPRO] Allergy Unknown UNKNOWN Verified 03/06/21 20:19 diphtheria,pertussis Allergy Unknown Unknown Verified 03/06/21 20:19 (acellular),te [Adacel(Tdap Adolesn/Adult)(PF)] erythromycin base Allergy Unknown UNKNOWN Verified 03/06/21 20:19 [ERYTHROMYCIN BASE] fluticasone [Advair Diskus] Allergy Unknown Unknown Verified 03/06/21 20:19 formoterol [From SYMBICORT] Allergy Unknown UNKNOWN Verified 03/06/21 20:19 hydrocodone [From VICODIN] Allergy Unknown unknown Verified 03/06/21 20:19 Iodinated Contrast Media Allergy Unknown UNKNOWN Verified 03/06/21 20:19 [CONTRAST, IV] levofloxacin [From LEVAQUIN] Allergy Unknown UNKNOWN Verified 03/06/21 20:19 penicillin G Allergy Unknown Unknown Verified 03/06/21 20:19 penicillin V Allergy Unknown Unknown Verified 03/06/21 20:19 Penicillins [PENICILLINS] Allergy Unknown UNKNOWN Verified 03/06/21 20:19 salmeterol [Advair Diskus] Allergy Unknown Unknown Verified 03/06/21 20:19 sertraline [From ZOLOFT] Allergy Unknown SUICIDAL Verified 03/06/21 20:19 Sulfa (Sulfonamide Allergy Unknown hives Verified 03/06/21 20:19 Antibiotics) tetanus and diphtheria Allergy Unknown UNKNOWN Verified 03/06/21 20:19 toxoids [TETANUS & DIPHTHERIA TOXOIDS] Vantin Allergy Unknown Unknown Verified 03/06/21 20:19 ketorolac [From TORADOL] AdvReac Mild ITCHING Verified 03/06/21 20:19 Ceftin Allergy Unknown Unknown Uncoded 03/06/21 20:19 IV dye Allergy Unknown Unknown Uncoded 03/06/21 20:19 Symbicort Allergy Unknown Unknown Uncoded 03/06/21 20:19 Tetanus Allergy Unknown Unknown Uncoded 03/06/21 20:19 Erythromycin Allergy Unknown Uncoded 03/06/21 20:19 Review of Systems Review of Systems: Pertinent positives and negatives as stated in HPI 10 point review of systems is otherwise negative. [facility] Past Medical History Source: nursing notes reviewed Medical History Anxiety Asthma Atrial fibrillation CHF (congestive heart failure) Depression DVT (deep venous thrombosis) Hypertension Irritable bowel Morbid obesity Social History Social History Household Members: Spouse and Children Housing: Apartment Housing Other:: duplex Do you presently have visiting nurse or other home services: No Alcohol intake: former Patient Tobacco Use Status: Former Tobacco user e-Cigarette/Vaping Use: Never Used Second Hand Smoke Exposure: No Substance Use Type: Marijuana Advance Directives: Yes Advance Directives on File: Yes Advance Directives Date on File: 09/06/20 service: No Current occupational status: disabled Sexual orientation: Straight/Heterosexual Physical Exam Vital Signs: Vital Signs: Last Vital Signs Temp 97.0 F 06/22/21 10:59 Pulse 97 06/22/21 10:59 Resp 22 H 06/22/21 10:59 BP 140/72 H 06/22/21 10:59 Pulse Ox 97 06/22/21 10:59 Body Mass Index 43.5 VITAL SIGNS: Reviewed. GENERAL: Well developed, well nourished, in no acute distress. HEAD: Normocephalic/atraumatic, patient is noted to have erythema surrounding bilateral eyes and across the nose without edema EYES: PERRLA, EOMI EARS: Ext canals without abnormality, TMs non-bulging and non-erythematous NOSE: Nares patent bilateral OROPHARYNX: no oral lesions noted, posterior pharynx clear and non-erythematous without noted tonsillar enlargement/erythema/exudates; no tongue/lip/facial swelling NECK: Supple, no adenopathy LUNGS: No stridor, mild expiratory wheeze, good inspiratory effort, able to complete sentences SpO2<97> CARDIOVASCULAR: Regular rate and rhythm without noted murmurs, no JVD or lower extremity edema. ABDOMEN: Soft, non-tender, non-distended with bowel sounds. SKIN: Inspection of the skin reveals no rashes NEUROLOGIC: Alert and oriented x 4. Strength and sensation to light touch were grossly intact x 4. Course Course Course Narrative: 50-year-old female with history and clinical presentation of low clinical suspicion for allergic reaction, angioedema, or asthma exacerbation. Noted redness to the face appears more to be steroid related and patient was evaluated by Kait last night. It was explained to the patient that she may need to continue with Benadryl over the next 24-48 hours for complete resolution of her symptoms. On re-evaluation patient was provided with additional Benadryl and reports that she is feeling much better and was discharged in stable condition. Medical Decision Making Lab Data Labs: Lab Results 06/22/21 Range/Units 11:36 Coronavirus (PCR) NEGATIVE (Negative) Influenza Type A (PCR) NEGATIVE (Negative) Influenza Type B (PCR) NEGATIVE (Negative) RSV RNA Qual (PCR) NEGATIVE (Negative) Discharge Plan Discharge Clinical Impression: Contact dermatitis, Pruritus Patient Disposition: Home, Self-Care Instructions: Cold Compress or Soak (ED), Contact Dermatitis (ED) Additional Instructions: Follow-up with your primary care provider in the next 2-3 days. Return to the ER for acute worsening of your symptoms. Prescriptions: No Action escitalopram oxalate 10 mg tablet 1 tab PO QAM RF: 0 warfarin 5 mg Tablet 12.5 mg PO MOWEFRSA@1800 RF: 0 risperidone [Risperdal] 1 mg Tablet 1 mg PO BEDTIME RF: 0 albuterol sulfate [Ventolin HFA] 90 mcg/actuation Hfa Aerosol Inhaler 2 puff inhalation RQ4H PRN (Reason: Shortness Of Breath) Qty: 6.7 RF: 0 lorazepam [Ativan] 1 mg tablet 1 mg PO BID PRN (Reason: anxiety) Qty: 30 RF: 0 diltiazem HCl 180 mg Capsule,Extended Release 24 Hr 180 mg PO DAILY RF: 0 montelukast 10 mg Tablet 10 mg PO BEDTIME RF: 0 trazodone 100 mg Tablet 150 mg PO BEDTIME RF: 0 omeprazole 40 mg Capsule,Delayed Release(Dr/Ec) 40 mg PO BEDTIME RF: 0 warfarin 10 mg tablet 10 mg PO SUTUTH@1800 RF: 0 Trelegy Ellipta 100-62.5-25 mcg blister with device 1 puff PO DAILY RF: 0 ipratropium-albuterol 0.5 mg-3 mg(2.5 mg base)/3 mL Solution For Nebulization 3 ml INHALATION Q6H PRN (Reason: Wheezing) RF: 0 prednisone 20 mg tablet 40 mg PO DAILY Qty: 10 RF: 0 Referrals: Sophie Tang MD [Primary Care Provider] - 2 days
[2021-06-22] MEDS: predniSONE 20 MG TABLET 40 MG PO (11:34)
[2021-06-22] MEDS: Loratadine 10 MG TABLET PO (11:34)
[2021-06-22 12:19] LABS: Influenza A PCR NEGATIVE (Negative); Influenza B PCR NEGATIVE (Negative); Resp Syncy Virus RNA Qual PCR NEGATIVE (Negative); SARS COV2 PCR INHOUSE NEGATIVE (Negative)
[2021-06-22] MEDS: diphenhydrAMINE HCL 25 MG TABLET PO (13:10)
--- NOTE | 2021-06-22 13:20 | PC.NURSE ---
First encounter with patient for dc purposes. Pt awake, alert and oriented x 3. skin warm and dry. resp unlabored. Denies n/v. Airway patent, managing secretions. Speaking in full clear sentences. Aware of plan for dc home and agreeable.
== END 2021-06-22 13:23 | disposition home or self-care (01) ==
PROVIDERS: Emergency Provider Student in an Organized Health Care Education/Training Program; PCP Family Medicine
DX: L25.9 Unspecified contact dermatitis, unspecified cause (principal); L29.9 Pruritus, unspecified; R06.02 Shortness of breath; Z20.822 Contact with and (suspected) exposure to COVID-19
CPT/HCPCS: 0241U; 36415; 99283; Q0163

== ENCOUNTER 2021-06-22 18:05 | Emergency (ER) | payer MEDICARE, MEDICAID, SELFPAY ==
[2021-06-22 18:08] VITALS: BP 152/87; PULSE 103; RESP 20; TEMP 36.5; O2SAT 99; BMI 43.5
--- NOTE | 2021-06-22 19:10 | ED.ALLEREA ---
HPI - Allergic Reaction General Chief complaint: Allergic Reaction Stated complaint: allergic reaction Time Seen by Provider: 06/22/21 18:24 Source: patient Mode of arrival: ambulatory Limitations: no limitations History of Present Illness HPI narrative: Patient woke up yesterday with erythematous rash on the face itching no lip swelling no tongue swelling no hives anywhere else patient been here in the ER multiple times for anxiety related shortness of breath. Patient was seen at [facility] yesterday was given Solu-Medrol IV and Benadryl was seen here again today and discharged at 11:00 and given extra dose of Benadryl. No hives/rash noticed on extremities or trunk patient complaining of heartburn also. Patient denied any shortness of breath Related Data Home Medications Medication Instructions Recorded Confirmed diltiazem HCl 180 mg capsule,24 180 mg PO DAILY 09/03/20 05/13/21 hr,extended release montelukast 10 mg tablet 10 mg PO BEDTIME 09/03/20 05/13/21 trazodone 100 mg tablet 150 mg PO BEDTIME 09/03/20 05/13/21 omeprazole 40 mg capsule,delayed 40 mg PO BEDTIME 02/16/21 05/13/21 release warfarin 10 mg tablet 10 mg PO SUTUTH@1800 03/06/21 05/13/21 fluticasone fur. 100 mcg-umeclid 1 puff PO DAILY 03/08/21 05/13/21 62.5 mcg-vilant 25 mcg inhalat.powder (Trelegy Ellipta) ipratropium 0.5 mg-albuterol 3 mg 3 ml INHALATION Q6H PRN 03/08/21 05/13/21 (2.5 mg base)/3 mL nebulization soln escitalopram oxalate 10 mg tablet 1 tab PO QAM 05/13/21 05/13/21 risperidone 1 mg tablet (Risperdal) 1 mg PO BEDTIME 05/13/21 05/13/21 warfarin 5 mg tablet 12.5 mg PO MOWEFRSA@1800 05/13/21 05/13/21 Previous Rx's Medication Instructions Recorded albuterol sulfate 90 mcg/actuation 2 puff INHALATION RQ4H PRN #6.7 g 05/17/21 aerosol inhaler (Ventolin HFA) lorazepam 1 mg tablet (Ativan) 1 mg PO BID PRN #30 tab 05/17/21 prednisone 20 mg tablet 40 mg PO DAILY #10 tab 05/29/21 Allergies Allergy/AdvReac Type Severity Reaction Status Date / Time azithromycin Allergy Intermediate ITCHING Verified 03/06/21 20:19 [From ZITHROMAX Z-XANDER] amoxicillin [AMOXICILLIN] Allergy Unknown UNKNOWN, Verified 03/06/21 20:19 hives, swelling budesonide [From SYMBICORT] Allergy Unknown UNKNOWN Verified 03/06/21 20:19 cefpodoxime [From VANTIN] Allergy Unknown UNKNOWN Verified 03/06/21 20:19 cefuroxime [From CEFTIN] Allergy Unknown UNKNOWN Verified 03/06/21 20:19 Cephalosporins Allergy Unknown UNKNOWN Verified 03/06/21 20:19 [CEPHALOSPORINS] ciprofloxacin [From CIPRO] Allergy Unknown UNKNOWN Verified 03/06/21 20:19 diphtheria,pertussis Allergy Unknown Unknown Verified 03/06/21 20:19 (acellular),te [Adacel(Tdap Adolesn/Adult)(PF)] erythromycin base Allergy Unknown UNKNOWN Verified 03/06/21 20:19 [ERYTHROMYCIN BASE] fluticasone [Advair Diskus] Allergy Unknown Unknown Verified 03/06/21 20:19 formoterol [From SYMBICORT] Allergy Unknown UNKNOWN Verified 03/06/21 20:19 hydrocodone [From VICODIN] Allergy Unknown unknown Verified 03/06/21 20:19 Iodinated Contrast Media Allergy Unknown UNKNOWN Verified 03/06/21 20:19 [CONTRAST, IV] levofloxacin [From LEVAQUIN] Allergy Unknown UNKNOWN Verified 03/06/21 20:19 penicillin G Allergy Unknown Unknown Verified 03/06/21 20:19 penicillin V Allergy Unknown Unknown Verified 03/06/21 20:19 Penicillins [PENICILLINS] Allergy Unknown UNKNOWN Verified 03/06/21 20:19 salmeterol [Advair Diskus] Allergy Unknown Unknown Verified 03/06/21 20:19 sertraline [From ZOLOFT] Allergy Unknown SUICIDAL Verified 03/06/21 20:19 Sulfa (Sulfonamide Allergy Unknown hives Verified 03/06/21 20:19 Antibiotics) tetanus and diphtheria Allergy Unknown UNKNOWN Verified 03/06/21 20:19 toxoids [TETANUS & DIPHTHERIA TOXOIDS] Vantin Allergy Unknown Unknown Verified 03/06/21 20:19 ketorolac [From TORADOL] AdvReac Mild ITCHING Verified 03/06/21 20:19 Ceftin Allergy Unknown Unknown Uncoded 03/06/21 20:19 IV dye Allergy Unknown Unknown Uncoded 03/06/21 20:19 Symbicort Allergy Unknown Unknown Uncoded 03/06/21 20:19 Tetanus Allergy Unknown Unknown Uncoded 03/06/21 20:19 Erythromycin Allergy Unknown Uncoded 03/06/21 20:19 Review of Systems Review of Systems: Yes all other systems are reviewed and are negative [facility] Past Medical History Medical History Anxiety Asthma Atrial fibrillation CHF (congestive heart failure) Depression DVT (deep venous thrombosis) Hypertension Irritable bowel Morbid obesity Social History Social History Household Members: Spouse and Children Housing: Apartment Housing Other:: duplex Do you presently have visiting nurse or other home services: No Alcohol intake: former Patient Tobacco Use Status: Former Tobacco user e-Cigarette/Vaping Use: Never Used Second Hand Smoke Exposure: No Substance Use Type: Marijuana Advance Directives: Yes Advance Directives on File: Yes Advance Directives Date on File: 09/06/20 service: No Current occupational status: disabled Sexual orientation: Straight/Heterosexual Physical Exam Vital Signs: Vital Signs: Last Vital Signs Temp 97.7 F 06/22/21 18:08 Pulse 103 H 06/22/21 18:08 Resp 20 06/22/21 18:08 BP 152/87 H 06/22/21 18:08 Pulse Ox 99 06/22/21 18:08 Body Mass Index 43.5 Appearance: Alert. Oriented X3. No acute distress. Anxious Eyes: No pallor or icterus ENT: Pharynx normal. Oral Mucosa moist no lip or tongue swelling Neck: Normal inspection. Neck supple. CVS: Normal heart rate and rhythm. Pulses normal. Respiratory: No respiratory distress. Equal air entry bilateral, no wheezing/rales/rhonchi Abdomen: Soft and nontender. Bowel sounds are present, no mass palpable, no CVA tenderness Skin: Skin warm and dry. Slight erythema of the face no hives noted swelling or tongue swelling Extremities: No lower extremity edema. No calf tenderness Neuro: Oriented X 3. Discharge Plan Discharge Clinical Impression: Allergic reaction Patient Disposition: Home, Self-Care Instructions: Allergies (ED) Additional Instructions: Continue medication as prescribed and follow with PCP Prescriptions: No Action escitalopram oxalate 10 mg tablet 1 tab PO QAM RF: 0 warfarin 5 mg Tablet 12.5 mg PO MOWEFRSA@1800 RF: 0 risperidone [Risperdal] 1 mg Tablet 1 mg PO BEDTIME RF: 0 albuterol sulfate [Ventolin HFA] 90 mcg/actuation Hfa Aerosol Inhaler 2 puff inhalation RQ4H PRN (Reason: Shortness Of Breath) Qty: 6.7 RF: 0 lorazepam [Ativan] 1 mg tablet 1 mg PO BID PRN (Reason: anxiety) Qty: 30 RF: 0 diltiazem HCl 180 mg Capsule,Extended Release 24 Hr 180 mg PO DAILY RF: 0 montelukast 10 mg Tablet 10 mg PO BEDTIME RF: 0 trazodone 100 mg Tablet 150 mg PO BEDTIME RF: 0 omeprazole 40 mg Capsule,Delayed Release(Dr/Ec) 40 mg PO BEDTIME RF: 0 warfarin 10 mg tablet 10 mg PO SUTUTH@1800 RF: 0 Trelegy Ellipta 100-62.5-25 mcg blister with device 1 puff PO DAILY RF: 0 ipratropium-albuterol 0.5 mg-3 mg(2.5 mg base)/3 mL Solution For Nebulization 3 ml INHALATION Q6H PRN (Reason: Wheezing) RF: 0 prednisone 20 mg tablet 40 mg PO DAILY Qty: 10 RF: 0 Interventions: ED Discharge Assessment Last Done: 06/22/21 20:14 Discharge Date/Time: 06/22/21 20:15
[2021-06-22] MEDS: Famotidine 20 MG TABLET PO (19:20)
[2021-06-22] MEDS: Magnesium Hydrox/Alum Hydrox 30 ML ORAL.SUSP PO (19:20)
[2021-06-22] MEDS: hydrOXYzine HCL 50 MG TABLET PO (19:20)
== END 2021-06-22 20:15 | disposition home or self-care (01) ==
PROVIDERS: Emergency Provider Internal Medicine; PCP Family Medicine
DX: L23.9 Allergic contact dermatitis, unspecified cause (principal); F12.90 Cannabis use, unspecified, uncomplicated; Z20.822 Contact with and (suspected) exposure to COVID-19; Z79.899 Other long term (current) drug therapy
CPT/HCPCS: 0241U; 36415; 99283; 99284; Q0163

== ENCOUNTER 2021-07-09 14:07 | Inpatient (IN) | payer MEDICARE, MEDICAID, SELFPAY ==
[2021-07-09] VITALS (8 sets, daily range): BP systolic 96–146; BP diastolic 53–85; PULSE 93–145; RESP 13–36; TEMP 36.1–36.3; O2SAT 88–99; BMI 52.2; BMI 45.7
--- NOTE | ~2021-07-09 | XR_ITS ---
EXAMINATION: XR CHEST CLINICAL INFORMATION: Shortness of breath with dyspnea COMPARISON: June 07, 2021 and studies dating back to December 23, 2019 TECHNIQUE: AP portable view of the chest was obtained. FINDINGS: There is no evidence of acute parenchymal disease, pneumothorax, or pleural effusion. Heart normal size. No evidence of pulmonary edema. Left internal jugular port catheter seen in place with tip of the catheter within the superior right atrium. XR/XR chest 1V IMPRESSION: No acute disease.
--- NOTE | 2021-07-09 14:43 | ECG_ITS ---
Test Reason : ASTHMA Blood Pressure : / mmHG Vent. Rate : 109 BPM Atrial Rate : 109 BPM P-R Int : 154 ms QRS Dur : 084 ms QT Int : 358 ms P-R-T Axes : 050 -02 040 degrees QTc Int : 482 ms Sinus tachycardia Possible Inferior infarct , age undetermined Anterolateral infarct (cited on or before 29-MAY-2021) Abnormal ECG When compared with ECG of 20-JUN-2021 17:16, Borderline criteria for Inferior infarct are now Present Referred By: Mars Le Electronically Signed By:REYNA POWER
--- NOTE | 2021-07-09 14:54 | ED.ASTHMA ---
HPI - Asthma General Chief Complaint: Asthma Stated Complaint: DIFF BREATGING ALLAN CPAP Time Seen by Provider: 07/09/21 14:34 Source: patient, EMS and other (ED nurse) Mode of arrival: EMS Limitations: other History of Present Illness HPI Narrative: 50-year-old female who presents emergency department for evaluation of shortness of breath. The patient states she has been sick for approximately 4 days. She denied cough but states she has been having chest pain which is worse with breathing. She has also felt very short of breath. She does have a history of asthma/COPD and she has been using her medications at home without any relief. The patient states her shortness of breath got severe prior to coming to the emergency department therefore she called an ambulance. Paramedics found the patient's O2 saturation to be 88% on room air. Patient was given a DuoNeb EN route and placed on CPAP. In the emergency department she was taken off CPAP but continued to be tachypneic therefore she was placed on BiPAP 20/5 +at 80% FiO2. The patient was also ordered to get a continuous hour long albuterol nebulizer 10 mg. Related Data Home Medications Medication Instructions Recorded Confirmed diltiazem HCl 180 mg capsule,24 180 mg PO DAILY 09/03/20 05/13/21 hr,extended release montelukast 10 mg tablet 10 mg PO BEDTIME 09/03/20 05/13/21 trazodone 100 mg tablet 150 mg PO BEDTIME 09/03/20 05/13/21 omeprazole 40 mg capsule,delayed 40 mg PO BEDTIME 02/16/21 05/13/21 release warfarin 10 mg tablet 10 mg PO SUTUTH@1800 03/06/21 05/13/21 fluticasone fur. 100 mcg-umeclid 1 puff PO DAILY 03/08/21 05/13/21 62.5 mcg-vilant 25 mcg inhalat.powder (Trelegy Ellipta) ipratropium 0.5 mg-albuterol 3 mg 3 ml INHALATION Q6H PRN 03/08/21 05/13/21 (2.5 mg base)/3 mL nebulization soln escitalopram oxalate 10 mg tablet 1 tab PO QAM 05/13/21 05/13/21 risperidone 1 mg tablet (Risperdal) 1 mg PO BEDTIME 05/13/21 05/13/21 warfarin 5 mg tablet 12.5 mg PO LIZZETTE@1800 05/13/21 05/13/21 Previous Rx's Medication Instructions Recorded albuterol sulfate 90 mcg/actuation 2 puff INHALATION RQ4H PRN #6.7 g 05/17/21 aerosol inhaler (Ventolin HFA) lorazepam 1 mg tablet (Ativan) 1 mg PO BID PRN #30 tab 05/17/21 prednisone 20 mg tablet 40 mg PO DAILY #10 tab 05/29/21 Allergies Allergy/AdvReac Type Severity Reaction Status Date / Time azithromycin Allergy Intermediate ITCHING Verified 03/06/21 20:19 [From ZITHROMAX Z-XANDER] amoxicillin [AMOXICILLIN] Allergy Unknown UNKNOWN, Verified 03/06/21 20:19 hives, swelling budesonide [From SYMBICORT] Allergy Unknown UNKNOWN Verified 03/06/21 20:19 cefpodoxime [From VANTIN] Allergy Unknown UNKNOWN Verified 03/06/21 20:19 cefuroxime [From CEFTIN] Allergy Unknown UNKNOWN Verified 03/06/21 20:19 Cephalosporins Allergy Unknown UNKNOWN Verified 03/06/21 20:19 [CEPHALOSPORINS] ciprofloxacin [From CIPRO] Allergy Unknown UNKNOWN Verified 03/06/21 20:19 diphtheria,pertussis Allergy Unknown Unknown Verified 03/06/21 20:19 (acellular),te [Adacel(Tdap Adolesn/Adult)(PF)] erythromycin base Allergy Unknown UNKNOWN Verified 03/06/21 20:19 [ERYTHROMYCIN BASE] fluticasone [Advair Diskus] Allergy Unknown Unknown Verified 03/06/21 20:19 formoterol [From SYMBICORT] Allergy Unknown UNKNOWN Verified 03/06/21 20:19 hydrocodone [From VICODIN] Allergy Unknown unknown Verified 03/06/21 20:19 Iodinated Contrast Media Allergy Unknown UNKNOWN Verified 03/06/21 20:19 [CONTRAST, IV] levofloxacin [From LEVAQUIN] Allergy Unknown UNKNOWN Verified 03/06/21 20:19 penicillin G Allergy Unknown Unknown Verified 03/06/21 20:19 penicillin V Allergy Unknown Unknown Verified 03/06/21 20:19 Penicillins [PENICILLINS] Allergy Unknown UNKNOWN Verified 03/06/21 20:19 salmeterol [Advair Diskus] Allergy Unknown Unknown Verified 03/06/21 20:19 sertraline [From ZOLOFT] Allergy Unknown SUICIDAL Verified 03/06/21 20:19 Sulfa (Sulfonamide Allergy Unknown hives Verified 03/06/21 20:19 Antibiotics) tetanus and diphtheria Allergy Unknown UNKNOWN Verified 03/06/21 20:19 toxoids [TETANUS & DIPHTHERIA TOXOIDS] Vantin Allergy Unknown Unknown Verified 03/06/21 20:19 ketorolac [From TORADOL] AdvReac Mild ITCHING Verified 03/06/21 20:19 Ceftin Allergy Unknown Unknown Uncoded 03/06/21 20:19 IV dye Allergy Unknown Unknown Uncoded 03/06/21 20:19 Symbicort Allergy Unknown Unknown Uncoded 03/06/21 20:19 Tetanus Allergy Unknown Unknown Uncoded 03/06/21 20:19 Erythromycin Allergy Unknown Uncoded 03/06/21 20:19 Review of Systems Review of Systems: Yes all other systems are reviewed and are negative PMFSH Past Medical History Medical History Anxiety Asthma Atrial fibrillation CHF (congestive heart failure) Depression DVT (deep venous thrombosis) Hypertension Irritable bowel Morbid obesity Social History Social History Household Members: Spouse and Children Housing: Apartment Housing Other:: duplex Do you presently have visiting nurse or other home services: No Alcohol intake: unknown Patient Tobacco Use Status: Former Tobacco user e-Cigarette/Vaping Use: Never Used Second Hand Smoke Exposure: No Use of substances other than those prescribed or required for medical reasons: Unknown Substance Use Type: Marijuana Advance Directives: Yes Advance Directives on File: Yes Advance Directives Date on File: 09/06/20 service: No Current occupational status: disabled Sexual orientation: Straight/Heterosexual Physical Exam Vital Signs: Vital Signs: Last Vital Signs Temp 97.4 F 07/09/21 19:51 Pulse 101 H 07/09/21 19:51 Resp 25 H 07/09/21 19:51 BP 134/85 07/09/21 19:51 Pulse Ox 96 07/09/21 19:51 Body Mass Index 52.2 Const: Other: Awake, alert, appears to be anxious, wearing a BiPAP mask, tachypnea using accessory muscles to breathe. HENMT: Head: Yes normal to inspection, Yes normocephalic and Yes atraumatic Ears: external ears normal General nose exam: Normal external nose present Face and sinus: Yes normal facial exam Mouth: Normal oral and palatal mucosa present Throat: Yes posterior oropharynx normal Eyes: General: appearance normal, both eyes and all related structures Pupils: Equal, round and reactive pupils present Neck: Neck: Yes normal visual inspection, Yes no lymphadenopathy, Yes trachea midline and Yes supple Chest: Chest palpation & inspection: normal inspection of the chest and normal palpation of entire chest wall Resp: Other: Wearing BiPAP mask, tachypnea, symmetric breath sounds bilaterally with diffuse wheezing, no rhonchi or rales Cardio: Rate: tachycardic Rhythm: regular rhythm Heart sounds: S1 normal heart sound present, S2 normal heart sound present and no murmurs GI: Inspection: Yes normal to inspection Palpation (GI): Soft to palpation, nontender and no guarding Auscultation: normal bowel sounds : General: Yes no CVA tenderness Back/Spine/Pelvis: Back: no CVA tenderness Skin: General skin exam: no rashes or lesions noted Neuro: Cranial nerves: Yes CN's II-XII intact bilaterally and Yes Equal, round and reactive pupils present Cognition (Neuro): normal cognition Motor exam (neuro): 5/5 motor strength present throughout Extrem: General: Yes normal to inspection Psych: Appearance: grossly normal Speech and movement: Normal speech and movement present Affect: normal affect Attitude: cooperative Thought process: Normal thought process present Thought content: Normal thought content present Course Course Course Narrative: 50-year-old female who presents emergency department for evaluation of the shortness of breath x4 days with chest pain. Patient's symptoms became worse today so she called an ambulance. The patient was was found to have an O2 saturation of 88% on room air and was placed on CPAP by EMS and given a DuoNeb nebulizer treatment EN route to the hospital. On presentation the patient initially was taken off CPAP but then had to be placed on BiPAP secondary to tachypnea. And hypertensive with a blood pressure of 146/84. O2 saturation saturation on BiPAP 96%. Lung exam revealed symmetric breath sounds bilaterally but diffuse wheezing. I did order a CBC, CMP, lactic acid, blood culture, troponin, chest x-ray and EKG. Patient's Port-A-Cath only accessed by nursing staff. The patient was ordered to get Solu-Medrol 125 mg IV and a an albuterol 10 mg hour long nebulizer through the BiPAP machine. Patient also appears to be some extremely anxious secondary to her tachypnea therefore she was given Ativan 1 mg IV. 1937: The patient was taken off BiPAP. Patient was placed on 3 L of oxygen via nasal cannula with O2 saturations remaining above93%. The patient has a presistent cough and her lungs revealed diffuse wheezing. Patient continues to have wheezing and chest pain and required morphine 4 mg IV x3 doses with only minimal effect on her pain. The patient lung examination did reveal diffuse wheezing. The patient was ordered to get another albuterol 2.5 mg nebulizer. The patient has improved significantly from presentation however I do not think she has improved enough to be discharged home, therefore I will discuss the patient's presentation with the covering hospitalist 1950: The patient's laboratory evaluation revealed anemia with an H&H of 8.9 and 27, this is chronic. Patient's INR was therapeutic at 2.8, the patient is taking warfarin. The patient's chest x-ray revealed no evidence for pneumonia or congestive heart failure. The patient's troponin was below detectable limits. Twelve EKG was unremarkable unchanged from her baseline. 2013: I did discuss the patient's presentation with the covering hospitalist, Dr. Pop and she accepted the patient onto the hospitalist service. I will obtain a COVID-19 swab. MDM - Asthma Lab Data Result diagrams: 07/09/21 16:26 07/09/21 16:26 Labs: Lab Results 07/09/21 07/09/21 07/09/21 Range/Units 16:26 16:26 16:26 WBC 5.8 (4.8-10.8) X10*3/uL RBC 3.37 L (4.20-5.50) X10*6/uL Hgb 8.9 L (12.0-16.0) g/dl Hct 27.8 L (37-47) % MCV 82.5 (80-98) fL MCH 26.4 L (27.0-33.0) pg MCHC 32.0 (31.0-35.0) g/dl RDW 16.3 H (11.0-16.0) % Plt Count 215 (160-400) X10*3/uL MPV 12.6 H (9.4-12.3) fL Immature Gran % (Auto) 0.2 (0.0-0.4) % Neut % (Auto) 71.2 (45-73) % Lymph % (Auto) 18.9 L (20-40) % [place] % (Auto) 8.3 (2-11) % Eos % (Auto) 1.2 (0-4) % Baso % (Auto) 0.2 (0-2) % Lymph # (Auto) 1.1 L (1.2-4.9) X10*3/uL [place] # (Auto) 0.5 (0.1-1.2) X10*3/uL Eos # (Auto) 0.1 (0.0-0.4) X10*3/uL Baso # (Auto) 0.0 (0.0-0.2) X10*3/uL Abs Immat Gran (auto) 0.01 (0.00-0.03) X10*3/uL Absolute Neuts (auto) 4.1 (2.0-8.3) X10*3/uL Absolute Nucleated RBC 0.000 (0.0-0.012) X10*3/uL Nucleated RBC % (auto) 0.0 (0.0-0.2) /100WBC Sodium 137 (135-145) mmol/L Potassium 3.4 (3.3-5.1) mmol/L Chloride 103 (96-108) mmol/L Carbon Dioxide 23 (22-29) mmol/L Anion Gap 14 (12-20) BUN 15 (9-16) mg/dL Creatinine 0.92 (0.5-1.4) mg/dL Estim Creat Clear Calc 86.6 Estimated GFR > 60 Random Glucose 210 H (60-115) mg/dL Lactic Acid 1.8 (0.5-2.0) mmol/L Calcium 9.0 (8.4-10.2) mg/dL Total Bilirubin < 0.2 (0.0-1.0) mg/dL AST 19 (5-31) U/L ALT 26 (0-31) U/L Alkaline Phosphatase 82 (39-117) U/L Troponin I High Sens (<3.5-17.0) ng/L Total Protein 5.7 L (6.5-8.0) g/dL Albumin 3.8 (3.5-5.0) g/dL Lipase (8-78) U/L 07/09/21 07/09/21 Range/Units 16:26 16:26 WBC (4.8-10.8) X10*3/uL RBC (4.20-5.50) X10*6/uL Hgb (12.0-16.0) g/dl Hct (37-47) % MCV (80-98) fL MCH (27.0-33.0) pg MCHC (31.0-35.0) g/dl RDW (11.0-16.0) % Plt Count (160-400) X10*3/uL MPV (9.4-12.3) fL Immature Gran % (Auto) (0.0-0.4) % Neut % (Auto) (45-73) % Lymph % (Auto) (20-40) % [place] % (Auto) (2-11) % Eos % (Auto) (0-4) % Baso % (Auto) (0-2) % Lymph # (Auto) (1.2-4.9) X10*3/uL [place] # (Auto) (0.1-1.2) X10*3/uL Eos # (Auto) (0.0-0.4) X10*3/uL Baso # (Auto) (0.0-0.2) X10*3/uL Abs Immat Gran (auto) (0.00-0.03) X10*3/uL Absolute Neuts (auto) (2.0-8.3) X10*3/uL Absolute Nucleated RBC (0.0-0.012) X10*3/uL Nucleated RBC % (auto) (0.0-0.2) /100WBC Sodium (135-145) mmol/L Potassium (3.3-5.1) mmol/L Chloride (96-108) mmol/L Carbon Dioxide (22-29) mmol/L Anion Gap (12-20) BUN (9-16) mg/dL Creatinine (0.5-1.4) mg/dL Estim Creat Clear Calc Estimated GFR Random Glucose (60-115) mg/dL Lactic Acid (0.5-2.0) mmol/L Calcium (8.4-10.2) mg/dL Total Bilirubin (0.0-1.0) mg/dL AST (5-31) U/L ALT (0-31) U/L Alkaline Phosphatase (39-117) U/L Troponin I High Sens < 3.5 (<3.5-17.0) ng/L Total Protein (6.5-8.0) g/dL Albumin (3.5-5.0) g/dL Lipase 40 (8-78) U/L ABG Data Attestation: I personally reviewed and interpreted this ABG as follows: Interpretation: 1645: Sinus tachycardia with a rate of 109, normal RI interval, QRS duration. Prolonged QTC of 482 milliseconds. Q-waves in lead 3 and AVF, inverted T-wave in the V1, no ST segment elevation, no ST segment depression, no PACs, no PVCs. Compared to EKG 06/20/2021, there are no significant changes. Critical Care Time Critical Care Time Critical Care Time: Yes Total Critical Care Time: 45 Attestation: Critical Care: The patient was critically ill with a high probability of imminent or life threatening deterioration. I spent greater than 30 minutes of discontinuous time evaluating the patient,delivering critical care at the bedside, discussing and evaluating pertinent data with consultants. Critical care time does not include time spent performing separately billable procedures or teaching. Total time spent performing critical care was 45 minutes. Discharge Plan Discharge Patient Disposition: Admitted As Inpatient
[2021-07-09] MEDS: Albuterol Sulfate (0.083%) 2.5 MG/3 ML VIAL.NEB 10 MG INHALE (14:55)
[2021-07-09] MEDS: LORazepam 2 MG/ML VIAL 1 MG IVPUSH (16:32)
[2021-07-09 16:33] LABS: MANUAL DIFF FLAG NO
[2021-07-09] MEDS: Morphine Sulfate 4 MG/ML CARTRIDGE IM (16:33)
[2021-07-09 16:42] LABS: Basophils Percent Auto 0.2 % (0-2); Eosinophils Absolute Auto 0.1 X10*3/uL (0.0-0.4); Eosinophils Percent Auto 1.2 % (0-4); Hematocrit 27.8 % (37-47); Hemoglobin 8.9 g/dl (12.0-16.0); Imm Gran Abs Auto 0.01 X10*3/uL (0.00-0.03); Imm Gran Pct Auto 0.2 % (0.0-0.4); Lymphocytes Absolute Auto 1.1 X10*3/uL (1.2-4.9); Lymphocytes Percent Auto 18.9 % (20-40); Mean Corpuscular Hemoglobin 26.4 pg (27.0-33.0); Mean Corpuscular Volume 82.5 fL (80-98); Mean Platelet Volume 12.6 fL (9.4-12.3); Monocytes Absolute Auto 0.5 X10*3/uL (0.1-1.2); Monocytes Percent Auto 8.3 % (2-11); Neutrophils Absolute Auto 4.1 X10*3/uL (2.0-8.3); Neutrophils Percent Auto 71.2 % (45-73); Platelet Count 215 X10*3/uL (160-400); Red Blood Count 3.37 X10*6/uL (4.20-5.50); Red Cell Distribution Width 16.3 % (11.0-16.0); White Blood Count 5.8 X10*3/uL (4.8-10.8)
[2021-07-09 16:51] LABS: Lactic Acid 1.8 mmol/L (0.5-2.0)
[2021-07-09 16:54] LABS: Lipase 40 U/L (8-78)
[2021-07-09 16:55] LABS: Alanine Aminotransferase 26 U/L (0-31); Albumin Level 3.8 g/dL (3.5-5.0); Alkaline Phosphatase 82 U/L (39-117); Anion Gap 14 (12-20); Aspartate Amino Transferase 19 U/L (5-31); Bilirubin Total < 0.2 mg/dL (0.0-1.0); Blood Urea Nitrogen 15 mg/dL (9-16); Carbon Dioxide 23 mmol/L (22-29); Chloride 103 mmol/L (96-108); Creatinine Clr Calc Pharmacy 86.6; Estimated Glomerular Filt Rate > 60; Glucose Random 210 mg/dL (60-115); Potassium 3.4 mmol/L (3.3-5.1); Sodium 137 mmol/L (135-145); Total Protein 5.7 g/dL (6.5-8.0)
[2021-07-09 16:57] LABS: Troponin-I High Sensitivity < 3.5 ng/L (<3.5-17.0)
[2021-07-09] MEDS: methylPREDNISolone Sod Succ 125 MG/2 ML VIAL IVPUSH (17:11)
[2021-07-09] MEDS: diphenhydrAMINE HCL 50 MG/ML VIAL IVPUSH (17:11)
--- NOTE | 2021-07-09 17:34 | PC.NURSE ---
Pt is on bipap at this time and does not appear to be in any respiratory distress at this time. Pt has intermittent dry cough. Port accessed and pt recieved multiple IV medications. Pt continues to complain of pain. MD is aware and is ordering additional morphine.
[2021-07-09] MEDS: Morphine Sulfate 4 MG/ML CARTRIDGE IVPUSH ×2 (18:04→19:53)
--- NOTE | 2021-07-09 20:12 | PC.NURSE ---
When this RN to bedside to medicate with morphine, pt reports itching to face. No rash/swelling noted. Dr Le made aware, to order benadryl. This RN contacted RT to notify of order for neb. This RN ordered covid swab for pt.
[2021-07-09] MEDS: diphenhydrAMINE HCL 50 MG/ML VIAL 25 MG IVPUSH (20:22)
[2021-07-09] MEDS: Albuterol Sulfate (0.083%) 2.5 MG/3 ML VIAL.NEB INHALE (20:52)
--- NOTE | 2021-07-09 21:10 | PM.IMHP ---
History of Present Illness Date of Service: 07/09/21 Chief Complaint: asthma exacerbation This patient is very well known toes with recurrent admissions for asthma exacerbation She is a 50-year-old female with past medical history of asthma, recurrent DVT, depression, anxiety, history of GI bleed who presents to the hospital with complaints of 1 day history of shortness of breath wheezing, as well as coughing. Patient reports that her symptoms came on all of a sudden associated with chest pain that is midsternal, worse with coughing, and deep inspiration radiating to her shoulder rate, constant, no relieving factors except morphine or Dilaudid. Patient denies any fever, but reports chills, denies any abdominal pain nausea or vomiting, no diarrhea constipation, no urinary symptoms and no lower extremity edema. Denies headache, dizziness, numbness tingling or weakness. Patient reports that she was at [facility] few days prior to arrival due to tachycardia and is currently being worked up for tachycardia. Per report on arrival of EMS patient had an oxygen of 88%, patient was placed on CPAP EN route, in the ED patient was found to be tachypneic placed on BiPAP, currently off the BiPAP, satting nasal cannula. Her other vitals are significant for temp of 97.4?, heart rate of 140, respiratory rate of 25, blood pressure 134 over 85. Labs on arrival remarkable for hemoglobin of 8.9 which is around her baseline, otherwise unremarkable, COVID-19 negative, influenza as well as RSV negative Multiple rounds of albuterol, as well Solu-Medrol magnesium but patient continues to have wheezing and therefore will be admitted for further management of asthma exacerbation Review of Systems Review of Systems: Yes all other systems are reviewed and are negative [facility] Medical History Anxiety Asthma Atrial fibrillation CHF (congestive heart failure) Depression DVT (deep venous thrombosis) Hypertension Irritable bowel Morbid obesity Pertinent family history: No pertinent family history Patient denies any family history Surgical History H/O adenoidectomy History of hysterectomy History of tonsillectomy Hx of breast reduction, elective Social History Household Members: Spouse and Children Household Members Other:: 3 Housing: House Housing Other:: duplex Do you presently have visiting nurse or other home services: No Alcohol intake: unknown Patient Tobacco Use Status: Former Tobacco user e-Cigarette/Vaping Use: Never Used Second Hand Smoke Exposure: No Use of substances other than those prescribed or required for medical reasons: No Substance Use Type: Marijuana Currently Displaying Signs/Symptoms of Drug Intoxication Withdrawal: No Have you been hit, kicked, punched, or otherwise hurt by someone within the past year? If so, by whom?: No Do you feel safe in your current relationship?: No Is there a partner from a previous relationship who is making you feel unsafe now?: No Are you made to feel afraid or neglected: No Spiritual Healthcare Practices: no Advance Directives: Yes Advance Directives on File: Yes Advance Directives Date on File: 09/06/20 Do you have thoughts of harming others: None Do you have a plan to hurt others: No Plan Recently lost weight without trying: No Nutrition Risks: No Nutritional Risk Poor oral hygiene: No service: No Current occupational status: disabled Sexual orientation: Straight/Heterosexual Meds Allergies Allergy/AdvReac Type Severity Reaction Status Date / Time azithromycin Allergy Intermediate ITCHING Verified 03/06/21 20:19 [From ZITHROMAX Z-XANDER] amoxicillin [AMOXICILLIN] Allergy Unknown UNKNOWN, Verified 03/06/21 20:19 hives, swelling budesonide [From SYMBICORT] Allergy Unknown UNKNOWN Verified 03/06/21 20:19 cefpodoxime [From VANTIN] Allergy Unknown UNKNOWN Verified 03/06/21 20:19 cefuroxime [From CEFTIN] Allergy Unknown UNKNOWN Verified 03/06/21 20:19 Cephalosporins Allergy Unknown UNKNOWN Verified 03/06/21 20:19 [CEPHALOSPORINS] ciprofloxacin [From CIPRO] Allergy Unknown UNKNOWN Verified 03/06/21 20:19 diphtheria,pertussis Allergy Unknown Unknown Verified 03/06/21 20:19 (acellular),te [Adacel(Tdap Adolesn/Adult)(PF)] erythromycin base Allergy Unknown UNKNOWN Verified 03/06/21 20:19 [ERYTHROMYCIN BASE] fluticasone [Advair Diskus] Allergy Unknown Unknown Verified 03/06/21 20:19 formoterol [From SYMBICORT] Allergy Unknown UNKNOWN Verified 03/06/21 20:19 hydrocodone [From VICODIN] Allergy Unknown unknown Verified 03/06/21 20:19 Iodinated Contrast Media Allergy Unknown UNKNOWN Verified 03/06/21 20:19 [CONTRAST, IV] levofloxacin [From LEVAQUIN] Allergy Unknown UNKNOWN Verified 03/06/21 20:19 penicillin G Allergy Unknown Unknown Verified 03/06/21 20:19 penicillin V Allergy Unknown Unknown Verified 03/06/21 20:19 Penicillins [PENICILLINS] Allergy Unknown UNKNOWN Verified 03/06/21 20:19 salmeterol [Advair Diskus] Allergy Unknown Unknown Verified 03/06/21 20:19 sertraline [From ZOLOFT] Allergy Unknown SUICIDAL Verified 03/06/21 20:19 Sulfa (Sulfonamide Allergy Unknown hives Verified 03/06/21 20:19 Antibiotics) tetanus and diphtheria Allergy Unknown UNKNOWN Verified 03/06/21 20:19 toxoids [TETANUS & DIPHTHERIA TOXOIDS] Vantin Allergy Unknown Unknown Verified 03/06/21 20:19 ketorolac [From TORADOL] AdvReac Mild ITCHING Verified 03/06/21 20:19 Ceftin Allergy Unknown Unknown Uncoded 03/06/21 20:19 IV dye Allergy Unknown Unknown Uncoded 03/06/21 20:19 Symbicort Allergy Unknown Unknown Uncoded 03/06/21 20:19 Tetanus Allergy Unknown Unknown Uncoded 03/06/21 20:19 Erythromycin Allergy Unknown Uncoded 03/06/21 20:19 Active Medications: Current Medications Pharmacy Consult (Consult Rx Perform Med Rec) 1 each MISCELLANE ONCE PRN PRN Reason: Consult order Home Medications Medication Instructions Recorded Confirmed Last Taken Type montelukast 10 mg tablet 10 mg PO BEDTIME 09/03/20 07/09/21 07/08/21 History trazodone 100 mg tablet 150 mg PO BEDTIME 09/03/20 07/09/21 07/08/21 History omeprazole 40 mg capsule,delayed 40 mg PO BEDTIME 02/16/21 07/09/21 07/08/21 History release warfarin 10 mg tablet 10 mg PO SUTUTH@1800 03/06/21 07/09/21 07/08/21 History ipratropium 0.5 mg-albuterol 3 mg 3 ml INHALATION Q6H PRN 03/08/21 07/09/21 Unknown History (2.5 mg base)/3 mL nebulization soln risperidone 1 mg tablet (Risperdal) 1 mg PO BEDTIME 05/13/21 07/09/21 07/08/21 History warfarin 5 mg tablet 12.5 mg PO MOWEFRSA@1800 05/13/21 07/09/21 07/09/21 History diltiazem HCl 120 mg 1 cap PO DAILY 07/09/21 07/09/21 07/09/21 History capsule,extended release 24 hr escitalopram oxalate 20 mg tablet 1 tab PO DAILY 07/09/21 07/09/21 07/09/21 History fludrocortisone 0.1 mg tablet 1 tab PO DAILY 07/09/21 07/09/21 07/09/21 History potassium chloride 20 mEq 1 tab PO BID 07/09/21 07/09/21 07/09/21 History tablet,extended release(part/cryst) sodium chloride 1 gram tablet 500 mg PO DAILY 07/09/21 07/09/21 07/09/21 History Physical Exam Vital Signs and Narrative: Vital Signs: Last Vital Signs Temp 97.4 F 07/09/21 19:51 Pulse 95 07/09/21 20:53 Resp 25 H 07/09/21 19:51 BP 134/85 07/09/21 19:51 Pulse Ox 96 07/09/21 19:51 Body Mass Index 52.2 Const: General: cooperative and no acute distress Orientation/consciousness: patient oriented x3 Eyes: General: appearance normal, both eyes and all related structures Pupils: Equal, round and reactive pupils present Resp: Other: Expiratory wheezing , coughing Effort & Inspection: normal respiratory effort Cardio: Rate: regular rate Rhythm: regular rhythm GI: Palpation (GI): Soft to palpation Auscultation: normal bowel sounds Skin: General skin exam: no rashes or lesions noted Neuro: General: patient oriented x3 Cranial nerves: Yes Equal, round and reactive pupils present Cognition (Neuro): normal cognition Extrem: General: Yes normal to inspection and Yes no pedal edema Results Labs CBC and Chem 7: 07/09/21 16:26 07/09/21 16:26 Labs: Laboratory Results - last 24 hr 07/09/21 07/09/21 07/09/21 16:26 16:26 16:26 MCV 82.5 MCH 26.4 L MCHC 32.0 RDW 16.3 H Plt Count 215 MPV 12.6 H Immature Gran % (Auto) 0.2 Neut % (Auto) 71.2 Lymph % (Auto) 18.9 L Woods % (Auto) 8.3 Eos % (Auto) 1.2 Baso % (Auto) 0.2 Lymph # (Auto) 1.1 L Woods # (Auto) 0.5 Eos # (Auto) 0.1 Baso # (Auto) 0.0 Abs Immat Gran (auto) 0.01 Absolute Neuts (auto) 4.1 Absolute Nucleated RBC 0.000 Nucleated RBC % (auto) 0.0 Anion Gap 14 Estim Creat Clear Calc 86.6 Estimated GFR > 60 Random Glucose 210 H Lactic Acid 1.8 Calcium 9.0 Total Bilirubin < 0.2 AST 19 ALT 26 Alkaline Phosphatase 82 Troponin I High Sens Total Protein 5.7 L Albumin 3.8 Lipase 07/09/21 07/09/21 16:26 16:26 MCV MCH MCHC RDW Plt Count MPV Immature Gran % (Auto) Neut % (Auto) Lymph % (Auto) Woods % (Auto) Eos % (Auto) Baso % (Auto) Lymph # (Auto) Woods # (Auto) Eos # (Auto) Baso # (Auto) Abs Immat Gran (auto) Absolute Neuts (auto) Absolute Nucleated RBC Nucleated RBC % (auto) Anion Gap Estim Creat Clear Calc Estimated GFR Random Glucose Lactic Acid Calcium Total Bilirubin AST ALT Alkaline Phosphatase Troponin I High Sens < 3.5 Total Protein Albumin Lipase 40 Imaging Radiologist's Impressions: Impressions Chest X-Ray 07/09/21 14:43 IMPRESSION: No acute disease. Assessment and Plan (1) Asthma with acute exacerbation: Qualifiers: Asthma persistence: persistent Asthma severity: severe Qualified Code(s): J45.51 - Severe persistent asthma with (acute) exacerbation Status: Acute (2) Chest pain: Qualifiers: Chest pain type: unspecified Qualified Code(s): R07.9 - Chest pain, unspecified Status: Acute 50-year-old female with was known to our service for multiple admissions for asthma exacerbation presents to the hospital with complaints of shortness of breath and cough # asthma exacerbation - has wheezing, dyspnea, cough - no evidence of pneumonia, negative COVID, fluids and RSV - will start her on Solu-Medrol 40 IV b.i.d. - DuoNeb q.i.d. and p.r.n. - I believe there is large aspect of anxiety as well as possible medical attention seeking and possible opioid seeking behavior also notable because patient comes in asking for ketamine in majority of admissions as well as fentanyl and morphine - monitor respiratory status # chest pain - pleuritic, noncardiac - troponin negative - no EKG changes - supportive measures # history of DVT - continue Coumadin - will obtain PT INR # anxiety = continue risperidone, trazodone and fluoxetine # hypertension - elevated - Continue diltiazem DVT prophylaxis:? Warfarin Quality Stroke Does the patient have a stroke diagnosis?: No VTE Prior VTE?: No VTE Risk Level:: Medical - moderate - high VTE Device Contraindication: Treatment Not Indicated VTE Drug Contraindication: N/A - Med Ordered
[2021-07-09 21:14] LABS: Influenza A PCR NEGATIVE (Negative); Influenza B PCR NEGATIVE (Negative); Resp Syncy Virus RNA Qual PCR NEGATIVE (Negative); SARS COV2 PCR INHOUSE NEGATIVE (Negative)
--- NOTE | 2021-07-09 21:24 | PHA.MEDREC ---
Pharmacy Consult ? Medication Reconciliation Pharmacy has completed the medication reconciliation.
[2021-07-09] MEDS: Heparin Sodium,Porcine 5,000 UNIT/ML VIAL 5000 UNIT SUBCUT (22:55)
[2021-07-09] MEDS: methylPREDNISolone Sod Succ 40 MG/ML VIAL IVPUSH (22:56)
[2021-07-10] VITALS (7 sets, daily range): BP systolic 114–130; BP diastolic 59–70; PULSE 99–107; RESP 17–20; TEMP 36.3–36.8; O2SAT 94–97
[2021-07-10] MEDS: Morphine Sulfate 4 MG/ML CARTRIDGE IVPUSH (00:49)
[2021-07-10] MEDS: 0.9 % Sodium Chloride Flush 3 ML SYRINGE IVFLUSH ×2 (00:50→10:25)
[2021-07-10] MEDS: diphenhydrAMINE HCL 50 MG/ML VIAL 25 MG IVPUSH ×3 (00:50→12:19)
[2021-07-10 06:10] LABS: MANUAL DIFF FLAG NO
[2021-07-10 06:24] LABS: Hemoglobin 9.5 g/dl (12.0-16.0); Imm Gran Abs Auto 0.04 X10*3/uL (0.00-0.03); Imm Gran Pct Auto 0.8 % (0.0-0.4); Lymphocytes Absolute Auto 0.5 X10*3/uL (1.2-4.9); Lymphocytes Percent Auto 9.2 % (20-40); Mean Corpuscular HGB Conc 30.6 g/dl (31.0-35.0); Mean Corpuscular Hemoglobin 25.7 pg (27.0-33.0); Mean Platelet Volume 12.4 fL (9.4-12.3); Monocytes Percent Auto 0.6 % (2-11); Neutrophils Absolute Auto 4.6 X10*3/uL (2.0-8.3); Neutrophils Percent Auto 89.4 % (45-73); Platelet Count 235 X10*3/uL (160-400); Red Blood Count 3.69 X10*6/uL (4.20-5.50); Red Cell Distribution Width 16.3 % (11.0-16.0); White Blood Count 5.1 X10*3/uL (4.8-10.8)
[2021-07-10 06:36] LABS: Anion Gap 15 (12-20); Blood Urea Nitrogen 14 mg/dL (9-16); Calcium 9.8 mg/dL (8.4-10.2); Carbon Dioxide 23 mmol/L (22-29); Chloride 105 mmol/L (96-108); Creatinine Clr Calc Pharmacy 78.9; Estimated Glomerular Filt Rate > 60; Glucose Random 287 mg/dL (60-115); Potassium 4.4 mmol/L (3.3-5.1); Sodium 139 mmol/L (135-145)
[2021-07-10] MEDS: Albuterol/Iprat 2.5/0.5MG 3 ML AMPUL.NEB INHALE (07:45)
[2021-07-10] MEDS: Heparin Sodium,Porcine 5,000 UNIT/ML VIAL 5000 UNIT SUBCUT (10:18)
[2021-07-10] MEDS: methylPREDNISolone Sod Succ 40 MG/ML VIAL IVPUSH (10:19)
[2021-07-10] MEDS: Escitalopram Oxalate 20 MG TABLET PO (10:19)
[2021-07-10] MEDS: Potassium Chloride ER 20 MEQ TAB.ER.PRT PO (10:19)
[2021-07-10] MEDS: Sodium Chloride Tab 1 GM TABLET 0.5 GM PO (10:19)
[2021-07-10] MEDS: dilTIAZem HCL CD 120 MG CAP.ER.DEG PO (10:24)
[2021-07-10] MEDS: Fludrocortisone Acetate 0.1 MG TABLET PO (10:24)
--- NOTE | 2021-07-10 11:07 | P.CDIC_ITS ---
CDI Concurrent Query Documentation Clarification: PHYSICIAN'S DOCUMENTATION REQUEST Date of Query: 07/10/21 1107 Patient Name: Samara Taylor Admit Date: 07/09/21 Dear Doctor, A review of the medical record indicates additional documentation may be needed. Please review below and update the documentation accordingly. Clinical Indicators: Risk Factors/Clinical Indicators/Treatments SOB, O2 sat 88% on RA/CPAP placed on BIPAP 2nd to tachypnea, on 3 liters oxygen via NC w O2 saturations remaining 93%. coughing, wheezing. morbidly obese with asthma exacerbation. RR 36 HR 101 Recognized standard criteria for respiratory failure includes: (Source: [employer] [facility] Aug 2013) ABGs (1 or more) Symptoms: ? PO2 <60 or RA SpO2 <91% ? Tachypnea, SOB ? PcO2 >50 and pH <7.35 ? pO2 decrease or pcO2 increase ? Anxiety or restlessness by 10 mm/Hg from baseline if known ? Use of accessory muscles P/F ratio < 300 Supplemental O2 requirement of 40% or more Clarify which of the following accurately represents the patient's respiratory status: * Acute respiratory failure * Acute on chronic respiratory failure * Other (please specify) * Unable to determine Please include type if known: * Hypoxic * Hypercapnic * Hypoxic and hypercapnic * Unable to determine Use of terms such as suspected, likely, concern for, or probable (associated with a specific diagnosis that is being evaluated, monitored, or treated as if it exists) are acceptable and can be coded in the inpatient setting, when docume nted at the time of discharge. Thank you, Marni Mcknight [facility], [facility] Extension: [phone] Please use your independent medical judgment in providing your response. THIS QUERY IS PART OF THE PERMANENT MEDICAL RECORD Provider Response: Other Other Diagnosis: Acute resp failure with hypoxia
--- NOTE | 2021-07-10 11:29 | MHC.CM.PN ---
met with pt who reports not having mservceis pt is indepedent cm intervention is not indicarted
--- NOTE | 2021-07-10 11:32 | P.DS_ITS ---
DS: Providers Provider Date of Service: 07/10/21 Date of admission: 07/09/21 21:09 Primary care physician: Unknown Physician Attending physician on discharge: Андрей Banks Discharging clinician: Olya Esteban DS: Diagnosis Discharge Diagnosis (1) Asthma with acute exacerbation: Status: Acute (2) Chest pain: Status: Acute DS: Summary Hospital Course Hospital Course: HP as per admitting provider This patient is very well known toes with recurrent admissions for asthma exacerbation She is a 50-year-old female with past medical history of asthma, recurrent DVT, depression, anxiety, history of GI bleed who presents to the hospital with complaints of 1 day history of shortness of breath wheezing, as well as coughing.? Patient reports that her symptoms came on all of a sudden associated with chest pain that is midsternal, worse with coughing, and deep inspiration radiating to her shoulder rate, constant, no relieving factors except morphine or Dilaudid. Patient denies any fever, but reports chills, denies any abdominal pain nausea or vomiting, no diarrhea constipation, no urinary symptoms and no lower extremity edema.? Denies headache, dizziness, numbness tingling or weakness.? Patient reports that she was at [facility] few days prior to arrival due to tachycardia and is currently being worked up for tachycardia. Per report on arrival of EMS patient had an oxygen of 88%, patient was placed on CPAP EN route, in the ED patient was found to be tachypneic placed on BiPAP, currently off the BiPAP, satting nasal cannula.? Her other vitals are significant for temp of 97.4?, heart rate of 140, respiratory rate of 25, blood pressure 134 over 85. Labs on arrival remarkable for hemoglobin of 8.9 which is around her baseline, otherwise unremarkable, COVID-19 negative, influenza as well as RSV negative Multiple rounds of albuterol, as well Solu-Medrol magnesium but patient continues to have wheezing and therefore will be admitted for further management of asthma exacerbation Asthma exacerbation . Patient well known to [facility] with history of asthma. She was at [facility] in the ER yesterday with shortness of breath. She was worked up for asthma as well as congestive heart failure due to her her dyspnea however all workup was negative and this was according to the medical record for [facility]. She was discharged from the ER at [facility] yesterday. Patient then came to [facility] with complaints of shortness of breath due to asthma symptoms. At this point patient is not noted to be hypoxic she is 94% on room air. Her lung sounds are clear, she was put on IV Solu-Medrol and had asked for Benadryl 50 mg which she was given for facial flushing. She was also ordered oxycodone f or incidental pain but declined stating that would not work for her but did not request any other medication. She was then offered Tylenol and ibuprofen but the client. At this point patient is safe for discharge home she will be sent home with 4 days of prednisone she can continue her usual maintenance medication at home. Chest pain. EKG showed no ischemic changes, troponin negative at less than 3.5. No ACS, no further workup. Time Spent with Patient Time attestation: Total time spent providing and/or coordinating discharge services: Discharge coordination time: Greater than 30 minutes Quality: Stroke Does the patient have a stroke diagnosis?: No Physical Exam Vital Signs: Vital Signs: Last Vital Signs Temp 98.1 F 07/10/21 11:08 Pulse 99 07/10/21 11:08 Resp 20 07/10/21 11:08 BP 126/59 L 07/10/21 11:08 Pulse Ox 94 07/10/21 11:25 Body Mass Index 45.7 Appearing in no acute distress head is normocephalic atraumatic eyes pupils are PERRLA sclera is anicteric mouth throat mucous membranes are intact and moist neck is supple no lymphadenopathy, no JVD noted lung sounds are clear to auscultation heart regular rate rhythm, clear S1, S2 positive bowel sounds, abdomen is soft, nontender neuro patient is alert x3, no focal deficits DS: Data Data Completed and Pending Completed studies during hospitalization [Text1]: Procedures Assistance with Respiratory Ventilation, Less than 24 Consecutive Hours, Continuous Positive Airway Pressure (02/16/21) Labs on day of discharge: Laboratory Results - last 24 hr 07/09/21 07/09/21 07/09/21 16:26 16:26 16:26 WBC 5.8 RBC 3.37 L Hgb 8.9 L Hct 27.8 L MCV 82.5 MCH 26.4 L MCHC 32.0 RDW 16.3 H Plt Count 215 MPV 12.6 H Immature Gran % (Auto) 0.2 Neut % (Auto) 71.2 Lymph % (Auto) 18.9 L Clayton % (Auto) 8.3 Eos % (Auto) 1.2 Baso % (Auto) 0.2 Lymph # (Auto) 1.1 L Clayton # (Auto) 0.5 Eos # (Auto) 0.1 Baso # (Auto) 0.0 Abs Immat Gran (auto) 0.01 Absolute Neuts (auto) 4.1 Absolute Nucleated RBC 0.000 Nucleated RBC % (auto) 0.0 PT INR Sodium 137 Potassium 3.4 Chloride 103 Carbon Dioxide 23 Anion Gap 14 BUN 15 Creatinine 0.92 Estim Creat Clear Calc 86.6 Estimated GFR > 60 Random Glucose 210 H Lactic Acid 1.8 Calcium 9.0 Total Bilirubin < 0.2 AST 19 ALT 26 Alkaline Phosphatase 82 Troponin I High Sens Total Protein 5.7 L Albumin 3.8 Lipase Coronavirus (PCR) Influenza Type A (PCR) Influenza Type B (PCR) RSV RNA Qual (PCR) 07/09/21 07/09/21 07/09/21 16:26 16:26 20:22 WBC RBC Hgb Hct MCV MCH MCHC RDW Plt Count MPV Immature Gran % (Auto) Neut % (Auto) Lymph % (Auto) Clayton % (Auto) Eos % (Auto) Baso % (Auto) Lymph # (Auto) Clayton # (Auto) Eos # (Auto) Baso # (Auto) Abs Immat Gran (auto) Absolute Neuts (auto) Absolute Nucleated RBC Nucleated RBC % (auto) PT INR Sodium Potassium Chloride Carbon Dioxide Anion Gap BUN Creatinine Estim Creat Clear Calc Estimated GFR Random Glucose Lactic Acid Calcium Total Bilirubin AST ALT Alkaline Phosphatase Troponin I High Sens < 3.5 Total Protein Albumin Lipase 40 Coronavirus (PCR) NEGATIVE Influenza Type A (PCR) NEGATIVE Influenza Type B (PCR) NEGATIVE RSV RNA Qual (PCR) NEGATIVE 07/10/21 07/10/21 07/10/21 05:43 05:43 Unknown WBC 5.1 RBC 3.69 L Hgb 9.5 L Hct 31.0 L MCV 84.0 MCH 25.7 L MCHC 30.6 L RDW 16.3 H Plt Count 235 MPV 12.4 H Immature Gran % (Auto) 0.8 H Neut % (Auto) 89.4 H Lymph % (Auto) 9.2 L Clayton % (Auto) 0.6 L Eos % (Auto) 0.0 Baso % (Auto) 0.0 Lymph # (Auto) 0.5 L Clayton # (Auto) 0.0 L Eos # (Auto) 0.0 Baso # (Auto) 0.0 Abs Immat Gran (auto) 0.04 H Absolute Neuts (auto) 4.6 Absolute Nucleated RBC 0.000 Nucleated RBC % (auto) 0.0 PT 23.0 H D INR 2.0 H Sodium 139 Potassium 4.4 D Chloride 105 Carbon Dioxide 23 Anion Gap 15 BUN 14 Creatinine 0.93 Estim Creat Clear Calc 78.9 Estimated GFR > 60 Random Glucose 287 H Lactic Acid Calcium 9.8 D Total Bilirubin AST ALT Alkaline Phosphatase Troponin I High Sens Total Protein Albumin Lipase Coronavirus (PCR) Influenza Type A (PCR) Influenza Type B (PCR) RSV RNA Qual (PCR) Discharge Plan Discharge Anticipated Discharge Date/Time: 07/10/21 12:09 Patient Disposition: Home, Self-Care Discharge Diagnosis: Asthma exacerbation, chest pain Referrals: Physician,Unknown [Primary Care Provider] - 1 Week Discharge Medications: New prednisone 10 mg tablet 40 mg PO DAILY Qty: 16 RF: 0 Continued warfarin 5 mg Tablet 12.5 mg PO MOWEFRSA@1800 RF: 0 risperidone [Risperdal] 1 mg Tablet 1 mg PO BEDTIME RF: 0 albuterol sulfate [Ventolin HFA] 90 mcg/actuation Hfa Aerosol Inhaler 2 puff inhalation RQ4H PRN (Reason: Shortness Of Breath) Qty: 6.7 RF: 0 lorazepam [Ativan] 1 mg tablet 1 mg PO BID PRN (Reason: anxiety) Qty: 30 RF: 0 montelukast 10 mg Tablet 10 mg PO BEDTIME RF: 0 trazodone 100 mg Tablet 150 mg PO BEDTIME RF: 0 omeprazole 40 mg Capsule,Delayed Release(Dr/Ec) 40 mg PO BEDTIME RF: 0 warfarin 10 mg tablet 10 mg PO SUTUTH@1800 RF: 0 ipratropium-albuterol 0.5 mg-3 mg(2.5 mg base)/3 mL Solution For Nebulization 3 ml INHALATION Q6H PRN (Reason: Wheezing) RF: 0 diltiazem HCl 120 mg capsule,extended release 24hr 1 cap PO DAILY RF: 0 escitalopram oxalate 20 mg tablet 1 tab PO DAILY RF: 0 potassium chloride 20 mEq tablet,ER particles/crystals 1 tab PO BID RF: 0 fludrocortisone 0.1 mg tablet 1 tab PO DAILY RF: 0 sodium chloride 1 gram Tablet 500 mg PO DAILY RF: 0 Discharge Orders: Discharge Order (Routine); Ordered 07/10/21 Ordered By: Olya Esteban Diet: advance to usual diet Activity on Discharge: As tolerated Stand Alone Forms: Patient Portal Discharge page Care Plan Goals: Resolution of asthma symptoms Health Concerns: asthma exacerbation chest pain Plan of Treatment: Follow up with primary care provider as needed You will be sent home with a 4 days taper of prednisone Assessment: See discharge summary
--- NOTE | 2021-07-10 12:22 | MHC.CM.PN ---
PT DISCHARGING HOME SELF-CARE, FOR TRANSPORT
--- NOTE | 2021-07-10 14:38 | PC.NURSE ---
This nurse in to complete patient discharge. Patient states she is not sure if she is ready. Provider Olya Esteban and case management made aware. Provider in to discuss with patient, pt agreeable to discharge at this time.
--- NOTE | 2021-07-10 14:45 | MHC.CM.PN ---
Addendum entered by Katerina Vazquez RN 07/10/21 15:05: CM VERIFIED W/PCP PT DOES HAVE A FOLLOW-UP APPT W/[facility] MD ON 07/26/2021 AT 11:20AM. Original Note: CM AND HOSPITALIST MET W/PT DUE TO NSG REPORTING SHE WAS REFUSING TO LEAVE, HOSPITALIST DID EXPLAIN TO PT THAT SHE WAS MEDICALLY CLEARED AND DID NOT NEED TO REMAIN INPT FOR FURTHER TX, THAT PT COULD CONTINUE TAKING PREDNISONE BY MOUTH AT HOME, PT AGITATED AND ARGUING W/HOSPITALIST AND CM, PT WAS OFFERED MEDICARE # TO APPEAL DISCHARGE MULTIPLE TIMES AND LASTLY AT 1432, PT REFUSING TO APPEAL AND STATES' GET ME OUT OF HERE AND I'M NEVER COMING BACK TO THIS HOSPITAL , CM HAD ALSO OFFERED TO SCHEDULE A FOLLOW-UP W/HER PCP AND DECLINED ASSISTANCE AND REPORTS SHE HAS A FOLLOW-UP W/DR. AHMADI COMING UP AND DOES NOT NEED ASSISTANCE. PT NOW ASKING TO LEAVE AND CALLING FOR RIDE.
[2021-07-10] MEDS: Heparin Sodium,Porcine Flush 50 UNITS, 0.9 % Sodium Chloride Flush 5 ML IVFLUSH (14:51)
== END 2021-07-10 15:03 | disposition home or self-care (01) | DRG 202 ==
LOC: HO.ED 20:15 → HO.EDOVER 21:28 → HO.IMC 22:30 → HO.S3 07-10 11:01
PROVIDERS: Admitting Provider Internal Medicine; Emergency Provider Emergency Medicine Emergency Medical Services; Visit Provider Nurse Practitioner Acute Care
DX: J45.51 Severe persistent asthma with (acute) exacerbation (principal); J96.01 Acute respiratory failure with hypoxia; Z20.822 Contact with and (suspected) exposure to COVID-19; F41.9 Anxiety disorder, unspecified; Z86.718 Personal history of other venous thrombosis and embolism; I10 Essential (primary) hypertension; Z87.891 Personal history of nicotine dependence; Z88.0 Allergy status to penicillin; Z88.2 Allergy status to sulfonamides; Z79.01 Long term (current) use of anticoagulants; Z79.51 Long term (current) use of inhaled steroids; Z79.899 Other long term (current) drug therapy
CPT/HCPCS: 0241U; 36415; 71045; 80048; 80053; 83605; 83690; 84484; 85025; 85610; 87040; 93005; 94640; 94644; 94660; 96372; 96374; 96375; 96376; 99285; 99291; J1200; J1642; J2060; J2270; J2920; J2930

== ENCOUNTER 2021-07-30 14:20 | Emergency (ER) | payer MEDICARE, MEDICAID, SELFPAY ==
[2021-07-30 14:23] VITALS: BP 115/54; PULSE 106; RESP 20; TEMP 37.2; O2SAT 100; BMI 44.9
== END 2021-07-30 17:43 | disposition left against medical advice (07) ==
PROVIDERS: Emergency Provider Internal Medicine
DX: T78.40XA Allergy, unspecified, initial encounter (principal); X58.XXXA Exposure to other specified factors, initial encounter
CPT/HCPCS: 99281; 99282

== ENCOUNTER 2021-08-19 18:21 | Emergency (ER) | payer MEDICARE, MEDICAID, SELFPAY ==
[2021-08-19 18:51] VITALS: BP 106/70; PULSE 120; RESP 30; TEMP 37; O2SAT 95; BMI 44.9
[2021-08-19 19:43] VITALS: BP 108/68; PULSE 116; RESP 24; O2SAT 98
== END 2021-08-19 21:25 | disposition left against medical advice (07) ==
PROVIDERS: Emergency Provider Emergency Medicine
DX: R06.02 Shortness of breath (principal); I11.0 Hypertensive heart disease with heart failure; I50.9 Heart failure, unspecified; I48.91 Unspecified atrial fibrillation; J45.909 Unspecified asthma, uncomplicated; Z86.718 Personal history of other venous thrombosis and embolism
CPT/HCPCS: 99283

== ENCOUNTER → 2021-08-27 15:13 | Outpatient (BNVA) | payer MEDICARE, MEDICAID, SELFPAY | PROVIDERS: PCP Family Medicine; Visit Provider Internal Medicine Pulmonary Disease | DX: J45.909 Unspecified asthma, uncomplicated (principal) | CPT/HCPCS: 99212 ==

== ENCOUNTER 2021-09-01 19:53 | Emergency (ER) | payer MEDICARE, MEDICAID, SELFPAY ==
--- NOTE | ~2021-09-01 | XR_ITS ---
EXAMINATION: XR CHEST CLINICAL INFORMATION: Cough COMPARISON: 07/09/2021 TECHNIQUE: Frontal view of the chest was obtained. FINDINGS: No focal consolidation, pleural effusion or pneumothorax. The cardiomediastinal silhouette is stable. Left chest port with catheter tip at the superior cavoatrial junction. No acute osseous abnormality. EKG leads project over the chest. XR/XR chest 1V IMPRESSION: No acute pulmonary process.
[2021-09-01 19:57] VITALS: BP 158/81; PULSE 105; RESP 18; TEMP 36.6; O2SAT 98; BMI 44.9
--- NOTE | 2021-09-01 21:20 | ECG_ITS ---
Test Reason : ABDOMIANL PAIN Blood Pressure : / mmHG Vent. Rate : 088 BPM Atrial Rate : 088 BPM P-R Int : 164 ms QRS Dur : 080 ms QT Int : 396 ms P-R-T Axes : 038 -06 028 degrees QTc Int : 479 ms Normal sinus rhythm Low voltage QRS Left axis deviation Borderline ECG When compared with ECG of 09-JUL-2021 16:45, No significant changes seen Referred By: Debbie Mi Electronically Signed By:BRIAN WILCOX MD
--- NOTE | 2021-09-01 21:30 | ED.FEMALEGU ---
HPI - Female Genitourinary General Chief complaint: Urogenital-Female Stated complaint: Flank pain/Palpitations Time Seen by Provider: 09/01/21 21:09 Source: patient Mode of arrival: ambulatory History of Present Illness HPI Narrative: 50-year-old female with extensive past medical history of multiple medical conditions to include DVTs on anticoagulation, GI bleed, COPD/asthma, MDD, atrial fibrillation, CHF who presents with increasing bilateral back discomfort after being started on a course of Macrobid for a UTI. She states that the right hurts more than the left and reports both fevers and chills with nausea. She is also complaining of some suprapubic pain and is status post cholecystectomy. She has recently been treated for a GI bleed at [facility], she had an IVC filter placed at that time, and then as per the patient she states she was informed that she no longer needs anticoagulation because she has an IVC filter in place. In addition, she states she has had multiple episodes of diarrhea since last Friday. Related Data Home Medications Medication Instructions Recorded Confirmed montelukast 10 mg tablet 10 mg PO BEDTIME 09/03/20 07/09/21 trazodone 100 mg tablet 150 mg PO BEDTIME 09/03/20 07/09/21 omeprazole 40 mg capsule,delayed 40 mg PO BEDTIME 02/16/21 07/09/21 release ipratropium 0.5 mg-albuterol 3 mg 3 ml INHALATION Q6H PRN 03/08/21 07/09/21 (2.5 mg base)/3 mL nebulization soln risperidone 1 mg tablet (Risperdal) 1 mg PO BEDTIME 05/13/21 07/09/21 diltiazem HCl 120 mg 1 cap PO DAILY 07/09/21 07/09/21 capsule,extended release 24 hr escitalopram oxalate 20 mg tablet 1 tab PO DAILY 07/09/21 07/09/21 fludrocortisone 0.1 mg tablet 1 tab PO DAILY 07/09/21 07/09/21 potassium chloride 20 mEq 1 tab PO BID 07/09/21 07/09/21 tablet,extended release(part/cryst) metformin 500 mg tablet mg PO 08/27/21 Previous Rx's Medication Instructions Recorded albuterol sulfate 90 mcg/actuation 2 puff INHALATION RQ4H PRN #6.7 g 05/17/21 aerosol inhaler (Ventolin HFA) lorazepam 1 mg tablet (Ativan) 1 mg PO BID PRN #30 tab 05/17/21 prednisone 10 mg tablet 40 mg PO DAILY #16 tab 07/10/21 fluticasone fur. 200 mcg-umeclid 1 inh INHALATION DAILY 30 Days #1 08/27/21 62.5 mcg-vilant 25 mcg ea inhalat.powder (Trelegy Ellipta) Allergies Allergy/AdvReac Type Severity Reaction Status Date / Time azithromycin Allergy Intermediate ITCHING Verified 08/27/21 15:17 [From ZITHROMAX Z-XANDER] amoxicillin [AMOXICILLIN] Allergy Unknown UNKNOWN, Verified 08/27/21 15:17 hives, swelling budesonide [From SYMBICORT] Allergy Unknown UNKNOWN Verified 08/27/21 15:17 cefpodoxime [From VANTIN] Allergy Unknown UNKNOWN Verified 08/27/21 15:17 cefuroxime [From CEFTIN] Allergy Unknown UNKNOWN Verified 08/27/21 15:17 Cephalosporins Allergy Unknown UNKNOWN Verified 08/27/21 15:17 [CEPHALOSPORINS] ciprofloxacin [From CIPRO] Allergy Unknown UNKNOWN Verified 08/27/21 15:17 diphtheria,pertussis Allergy Unknown Unknown Verified 08/27/21 15:17 (acellular),te [Adacel(Tdap Adolesn/Adult)(PF)] erythromycin base Allergy Unknown UNKNOWN Verified 08/27/21 15:17 [ERYTHROMYCIN BASE] fluticasone [Advair Diskus] Allergy Unknown Unknown Verified 08/27/21 15:17 formoterol [From SYMBICORT] Allergy Unknown UNKNOWN Verified 08/27/21 15:17 hydrocodone [From VICODIN] Allergy Unknown unknown Verified 08/27/21 15:17 Iodinated Contrast Media Allergy Unknown UNKNOWN Verified 08/27/21 15:17 [CONTRAST, IV] levofloxacin [From LEVAQUIN] Allergy Unknown UNKNOWN Verified 08/27/21 15:17 penicillin G Allergy Unknown Unknown Verified 08/27/21 15:17 penicillin V Allergy Unknown Unknown Verified 08/27/21 15:17 Penicillins [PENICILLINS] Allergy Unknown UNKNOWN Verified 08/27/21 15:17 salmeterol [Advair Diskus] Allergy Unknown Unknown Verified 08/27/21 15:17 sertraline [From ZOLOFT] Allergy Unknown SUICIDAL Verified 08/27/21 15:17 Sulfa (Sulfonamide Allergy Unknown hives Verified 08/27/21 15:17 Antibiotics) tetanus and diphtheria Allergy Unknown UNKNOWN Verified 08/27/21 15:17 toxoids [TETANUS & DIPHTHERIA TOXOIDS] Vantin Allergy Unknown Unknown Verified 08/27/21 15:17 ketorolac [From TORADOL] AdvReac Mild ITCHING Verified 08/27/21 15:17 Ceftin Allergy Unknown Unknown Uncoded 03/06/21 20:19 IV dye Allergy Unknown Unknown Uncoded 03/06/21 20:19 Symbicort Allergy Unknown Unknown Uncoded 03/06/21 20:19 Tetanus Allergy Unknown Unknown Uncoded 03/06/21 20:19 Erythromycin Allergy Unknown Uncoded 03/06/21 20:19 Review of Systems Review of Systems: Pertinent positives and negatives as stated in HPI 10 point review of systems is otherwise negative. PMFSH Past Medical History Source: nursing notes reviewed Medical History Anxiety Asthma Atrial fibrillation CHF (congestive heart failure) Depression DVT (deep venous thrombosis) Hypertension Irritable bowel Morbid obesity Surgical History H/O adenoidectomy History of hysterectomy History of tonsillectomy Hx of breast reduction, elective Social History Social History Household Members: Spouse and Children Household Members Other:: 3 Housing: House Housing Other:: duplex Do you presently have visiting nurse or other home services: No Alcohol intake: unknown Patient Tobacco Use Status: Former Tobacco user e-Cigarette/Vaping Use: Never Used Second Hand Smoke Exposure: No Substance Use Type: Marijuana Advance Directives: Yes Advance Directives on File: Yes Advance Directives Date on File: 09/06/20 service: No Current occupational status: disabled Sexual orientation: Straight/Heterosexual Physical Exam Vital Signs: Vital Signs: Last Vital Signs Temp 98 F 09/01/21 22:35 Pulse 86 09/01/21 22:35 Resp 22 H 09/01/21 22:35 BP 116/59 L 09/01/21 22:35 Pulse Ox 96 09/01/21 22:35 Body Mass Index 44.9 VITAL SIGNS: Reviewed. GENERAL: obese, well nourished, in no acute distress. HEAD: Normocephalic/atraumatic EYES: PERRLA, EOMI OROPHARYNX: no oral lesions noted, posterior pharynx clear, moist mucosa NECK: Supple, no adenopathy LUNGS: Tachypneic without retractions or noted wheezing/rhonchi/rales. SpO2<98> CARDIOVASCULAR: Sinus tachycardia and rhythm without noted murmurs, no JVD or lower extremity edema. ABDOMEN: obese, Soft, non-tender, non-distended with bowel sounds, CVA ttp bilaterally R>L. MUSCULOSKELETAL: No tenderness, deformities, or effusions noted on gross inspection. EXTREMITIES: No cyanosis, clubbing or edema. SKIN: Inspection of the skin reveals no rashes NEUROLOGIC: Alert and oriented x 4. Strength and sensation to light touch were grossly intact x 4. Course Course Course Narrative: 50-year-old female with history and clinical presentation initially most consistent with anxiety as there is no evidence of acute asthma/COPD exacerbation and although patient initially found to be tachycardic her heart rate continue to improve during the interview. At this time based on history, suspect possible pyelonephritis as patient has a history. In the meantime, will reach out to [facility] for records and urinalysis results. In addition, will evaluate stool sample. Review of all investigations without significant findings from chronic when compared. There was a noted lactic acidosis, however this is felt to have been secondary to patient's recent bout with diarrhea and on repeat assessment is within normal limits after receiving IV fluids. 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 MDM - Female Genitourinary Lab Data Result diagrams: 09/01/21 21:59 09/01/21 22:25 Labs: Lab Results 09/01/21 09/01/21 09/01/21 Range/Units 21:58 21:59 21:59 WBC 6.6 (4.8-10.8) X10*3/uL RBC 3.53 L (4.20-5.50) X10*6/uL Hgb 9.3 L (12.0-16.0) g/dl Hct 29.4 L (37.0-47.0) % MCV 83.3 (80.0-98.0) fL MCH 26.3 L (27.0-33.0) pg MCHC 31.6 (31.0-35.0) g/dl RDW 17.1 H (11.0-16.0) % Plt Count 166 (160-400) X10*3/uL MPV 12.4 H (9.4-12.3) fL Immature Gran % (Auto) 1.5 H (0.0-0.4) % Neut % (Auto) 64.6 (45-73) % Lymph % (Auto) 24.1 (20-40) % [place] % (Auto) 7.6 (2-11) % Eos % (Auto) 1.7 (0-4) % Baso % (Auto) 0.5 (0-2) % Lymph # (Auto) 1.6 (1.2-4.9) X10*3/uL [place] # (Auto) 0.5 (0.1-1.2) X10*3/uL Eos # (Auto) 0.1 (0.0-0.4) X10*3/uL Baso # (Auto) 0.0 (0.0-0.2) X10*3/uL Abs Immat Gran (auto) 0.10 H (0.00-0.03) X10*3/uL Absolute Neuts (auto) 4.3 (2.0-8.3) x10*3/uL Absolute Nucleated RBC 0.000 (0.0-0.012) X10*3/uL Nucleated RBC % (auto) 0.0 (0.0-0.2) /100WBC PT (9.9-13.0) SEC INR (0.9-1.1) Sodium (135-145) mmol/L Potassium (3.3-5.1) mmol/L Chloride (96-108) mmol/L Carbon Dioxide (22-29) mmol/L Anion Gap (12-20) BUN (9-16) mg/dL Creatinine (0.5-1.4) mg/dL Estim Creat Clear Calc Estimated GFR Random Glucose (60-115) mg/dL Lactic Acid 3.3 H* (0.5-2.0) mmol/L Lactic Acid Fup @ 2Hr (0.5-2.0) mmol/L Calcium (8.4-10.2) mg/dL Magnesium (1.6-2.6) mg/dL Total Bilirubin (0.0-1.0) mg/dL AST (5-31) U/L ALT (0-31) U/L Alkaline Phosphatase (39-117) U/L B-Natriuretic Peptide 26 (<100) pg/mL Total Protein (6.5-8.0) g/dL Albumin (3.5-5.0) g/dL Lipase (8-78) U/L Urine Color Urine Appearance Urine pH (5.0-8.0) Ur Specific [place] (1.005-1.025) Urine Protein (NEG-TRACE) MG/DL Urine Glucose (UA) (NEG) MG/DL Urine Ketones (NEG) MG/DL Urine Blood (NEG) Urine Nitrite (NEG) Ur Leukocyte Esterase (NEG) 09/01/21 09/01/21 09/01/21 Range/Units 22:01 22:25 22:26 WBC (4.8-10.8) X10*3/uL RBC (4.20-5.50) X10*6/uL Hgb (12.0-16.0) g/dl Hct (37.0-47.0) % MCV (80.0-98.0) fL MCH (27.0-33.0) pg MCHC (31.0-35.0) g/dl RDW (11.0-16.0) % Plt Count (160-400) X10*3/uL MPV (9.4-12.3) fL Immature Gran % (Auto) (0.0-0.4) % Neut % (Auto) (45-73) % Lymph % (Auto) (20-40) % [place] % (Auto) (2-11) % Eos % (Auto) (0-4) % Baso % (Auto) (0-2) % Lymph # (Auto) (1.2-4.9) X10*3/uL [place] # (Auto) (0.1-1.2) X10*3/uL Eos # (Auto) (0.0-0.4) X10*3/uL Baso # (Auto) (0.0-0.2) X10*3/uL Abs Immat Gran (auto) (0.00-0.03) X10*3/uL Absolute Neuts (auto) (2.0-8.3) x10*3/uL Absolute Nucleated RBC (0.0-0.012) X10*3/uL Nucleated RBC % (auto) (0.0-0.2) /100WBC PT 9.4 L (9.9-13.0) SEC INR 0.8 L (0.9-1.1) Sodium 141 (135-145) mmol/L Potassium 4.0 (3.3-5.1) mmol/L Chloride 111 H (96-108) mmol/L Carbon Dioxide 22 (22-29) mmol/L Anion Gap 12 (12-20) BUN 12 (9-16) mg/dL Creatinine 0.88 (0.5-1.4) mg/dL Estim Creat Clear Calc 82.4 Estimated GFR > 60 Random Glucose 155 H (60-115) mg/dL Lactic Acid (0.5-2.0) mmol/L Lactic Acid Fup @ 2Hr (0.5-2.0) mmol/L Calcium 8.8 D (8.4-10.2) mg/dL Magnesium 2.1 (1.6-2.6) mg/dL Total Bilirubin 0.2 (0.0-1.0) mg/dL AST 14 (5-31) U/L ALT 25 (0-31) U/L Alkaline Phosphatase 89 (39-117) U/L B-Natriuretic Peptide (<100) pg/mL Total Protein 5.7 L (6.5-8.0) g/dL Albumin 3.7 (3.5-5.0) g/dL Lipase 72 (8-78) U/L Urine Color YELLOW Urine Appearance HAZY Urine pH 5.5 (5.0-8.0) Ur Specific [place] >= 1.030 H (1.005-1.025) Urine Protein NEG (NEG-TRACE) MG/DL Urine Glucose (UA) NEG (NEG) MG/DL Urine Ketones NEG (NEG) MG/DL Urine Blood NEG (NEG) Urine Nitrite NEG (NEG) Ur Leukocyte Esterase NEG (NEG) 09/02/21 Range/Units 01:04 WBC (4.8-10.8) X10*3/uL RBC (4.20-5.50) X10*6/uL Hgb (12.0-16.0) g/dl Hct (37.0-47.0) % MCV (80.0-98.0) fL MCH (27.0-33.0) pg MCHC (31.0-35.0) g/dl RDW (11.0-16.0) % Plt Count (160-400) X10*3/uL MPV (9.4-12.3) fL Immature Gran % (Auto) (0.0-0.4) % Neut % (Auto) (45-73) % Lymph % (Auto) (20-40) % [place] % (Auto) (2-11) % Eos % (Auto) (0-4) % Baso % (Auto) (0-2) % Lymph # (Auto) (1.2-4.9) X10*3/uL [place] # (Auto) (0.1-1.2) X10*3/uL Eos # (Auto) (0.0-0.4) X10*3/uL Baso # (Auto) (0.0-0.2) X10*3/uL Abs Immat Gran (auto) (0.00-0.03) X10*3/uL Absolute Neuts (auto) (2.0-8.3) x10*3/uL Absolute Nucleated RBC (0.0-0.012) X10*3/uL Nucleated RBC % (auto) (0.0-0.2) /100WBC PT (9.9-13.0) SEC INR (0.9-1.1) Sodium (135-145) mmol/L Potassium (3.3-5.1) mmol/L Chloride (96-108) mmol/L Carbon Dioxide (22-29) mmol/L Anion Gap (12-20) BUN (9-16) mg/dL Creatinine (0.5-1.4) mg/dL Estim Creat Clear Calc Estimated GFR Random Glucose (60-115) mg/dL Lactic Acid (0.5-2.0) mmol/L Lactic Acid Fup @ 2Hr 2.0 (0.5-2.0) mmol/L Calcium (8.4-10.2) mg/dL Magnesium (1.6-2.6) mg/dL Total Bilirubin (0.0-1.0) mg/dL AST (5-31) U/L ALT (0-31) U/L Alkaline Phosphatase (39-117) U/L B-Natriuretic Peptide (<100) pg/mL Total Protein (6.5-8.0) g/dL Albumin (3.5-5.0) g/dL Lipase (8-78) U/L Urine Color Urine Appearance Urine pH (5.0-8.0) Ur Specific [place] (1.005-1.025) Urine Protein (NEG-TRACE) MG/DL Urine Glucose (UA) (NEG) MG/DL Urine Ketones (NEG) MG/DL Urine Blood (NEG) Urine Nitrite (NEG) Ur Leukocyte Esterase (NEG) ECG Data Attestation: I personally reviewed and interpreted this ECG as follows: Prior ECG tracings: available for review (07/09/2021 no acute changes on comparison) Interpretation: Normal sinus rhythm, HR-88, no STEMI, VT/QRS/QTC are within normal limits. Discharge Plan Discharge Clinical Impression: Back pain, Flank pain, Diarrhea Patient Disposition: Home, Self-Care Instructions: Dehydration (ED), Gastroenteritis (ED) Additional Instructions: 1. Resume all home medications as prescribed. Continue to drink plenty of fluids, especially water. 2. Follow-up with your primary care provider on Friday morning for re-evaluation and further outpatient management. Return to the ER for acute worsening of symptoms. Prescriptions: No Action risperidone [Risperdal] 1 mg Tablet 1 mg PO BEDTIME RF: 0 albuterol sulfate [Ventolin HFA] 90 mcg/actuation Hfa Aerosol Inhaler 2 puff inhalation RQ4H PRN (Reason: Shortness Of Breath) Qty: 6.7 RF: 0 lorazepam [Ativan] 1 mg tablet 1 mg PO BID PRN (Reason: anxiety) Qty: 30 RF: 0 montelukast 10 mg Tablet 10 mg PO BEDTIME RF: 0 trazodone 100 mg Tablet 150 mg PO BEDTIME RF: 0 omeprazole 40 mg Capsule,Delayed Release(Dr/Ec) 40 mg PO BEDTIME RF: 0 ipratropium-albuterol 0.5 mg-3 mg(2.5 mg base)/3 mL Solution For Nebulization 3 ml INHALATION Q6H PRN (Reason: Wheezing) RF: 0 diltiazem HCl 120 mg capsule,extended release 24hr 1 cap PO DAILY RF: 0 escitalopram oxalate 20 mg tablet 1 tab PO DAILY RF: 0 potassium chloride 20 mEq tablet,ER particles/crystals 1 tab PO BID RF: 0 fludrocortisone 0.1 mg tablet 1 tab PO DAILY RF: 0 prednisone 10 mg tablet 40 mg PO DAILY Qty: 16 RF: 0 Trelegy Ellipta 200-62.5-25 mcg blister with device 1 inh inhalation DAILY 30 Days Qty: 1 RF: 6 Referrals: Sophie Tang MD [Primary Care Provider] - 2 days
[2021-09-01 22:08] LABS: MANUAL DIFF FLAG NO
[2021-09-01 22:14] LABS: Basophils Percent Auto 0.5 % (0-2); Eosinophils Absolute Auto 0.1 X10*3/uL (0.0-0.4); Eosinophils Percent Auto 1.7 % (0-4); Hematocrit 29.4 % (37.0-47.0); Hemoglobin 9.3 g/dl (12.0-16.0); Imm Gran Pct Auto 1.5 % (0.0-0.4); Lymphocytes Absolute Auto 1.6 X10*3/uL (1.2-4.9); Lymphocytes Percent Auto 24.1 % (20-40); Mean Corpuscular HGB Conc 31.6 g/dl (31.0-35.0); Mean Corpuscular Hemoglobin 26.3 pg (27.0-33.0); Mean Corpuscular Volume 83.3 fL (80.0-98.0); Mean Platelet Volume 12.4 fL (9.4-12.3); Monocytes Absolute Auto 0.5 X10*3/uL (0.1-1.2); Monocytes Percent Auto 7.6 % (2-11); Neutrophils Absolute Auto 4.3 x10*3/uL (2.0-8.3); Neutrophils Percent Auto 64.6 % (45-73); Platelet Count 166 X10*3/uL (160-400); Red Blood Count 3.53 X10*6/uL (4.20-5.50); Red Cell Distribution Width 17.1 % (11.0-16.0); White Blood Count 6.6 X10*3/uL (4.8-10.8)
[2021-09-01 22:19] LABS: INTERNATIONAL NORM RATIO 0.8 (0.9-1.1); Prothrombin Time 9.4 SEC (9.9-13.0)
[2021-09-01 22:28] LABS: Lactic Acid 3.3 mmol/L (0.5-2.0)
[2021-09-01 22:31] LABS: B Type Natriuretic Peptide 26 pg/mL (<100)
[2021-09-01 22:35] VITALS: BP 116/59; PULSE 86; RESP 22; TEMP 36.6; O2SAT 96
[2021-09-01 22:35] LABS: Appearance Urine HAZY; Color Urine YELLOW; Glucose Urine UA NEG (NEG); Leukocyte Esterase Urine NEG (NEG); Nitrite Urine NEG (NEG); PH 5.5 (5.0-8.0); Specific Gravity - Urine >= 1.030 (1.005-1.025); Urine Blood NEG (NEG); Urine Ketones NEG (NEG); Urine Protein NEG (NEG-TRACE)
[2021-09-01 22:49] LABS: Alanine Aminotransferase 25 U/L (0-31); Albumin Level 3.7 g/dL (3.5-5.0); Alkaline Phosphatase 89 U/L (39-117); Anion Gap 12 (12-20); Aspartate Amino Transferase 14 U/L (5-31); Bilirubin Total 0.2 mg/dL (0.0-1.0); Blood Urea Nitrogen 12 mg/dL (9-16); Calcium 8.8 mg/dL (8.4-10.2); Carbon Dioxide 22 mmol/L (22-29); Chloride 111 mmol/L (96-108); Creatinine Clr Calc Pharmacy 82.4; Estimated Glomerular Filt Rate > 60; Glucose Random 155 mg/dL (60-115); Magnesium 2.1 mg/dL (1.6-2.6); Sodium 141 mmol/L (135-145); Total Protein 5.7 g/dL (6.5-8.0)
[2021-09-01 23:13] LABS: Lipase 72 U/L (8-78)
[2021-09-01] MEDS: 0.9 % Sodium Chloride 500 ML 999 ML IV (23:13)
[2021-09-02 00:07] LABS: Reflex Lactate? Lactic Acid Added
[2021-09-02] MEDS: Acetaminophen 325 MG TABLET 975 MG PO (00:25)
[2021-09-02] MEDS: Lidocaine 4 % Patch ADH..PATCH 1 PATCH TRANSDERMA (00:26)
== END 2021-09-02 01:57 | disposition home or self-care (01) ==
PROVIDERS: Emergency Provider Student in an Organized Health Care Education/Training Program; PCP Family Medicine
DX: R19.7 Diarrhea, unspecified (principal); R10.9 Unspecified abdominal pain; M54.50 Low back pain, unspecified; F12.90 Cannabis use, unspecified, uncomplicated; Z79.899 Other long term (current) drug therapy
CPT/HCPCS: 36415; 71045; 80053; 81003; 83605; 83690; 83735; 83880; 85025; 85610; 87040; 93005; 96360; 99284

== ENCOUNTER 2021-11-08 17:51 | Inpatient (IN) | payer MEDICARE, MEDICAID, SELFPAY ==
[2021-11-08] VITALS (7 sets, daily range): BP systolic 105–135; BP diastolic 41–117; PULSE 100–137; RESP 18–35; TEMP 36.5–37.6; O2SAT 95–100; BMI 44.3
--- NOTE | ~2021-11-08 | XR_ITS ---
EXAMINATION: XR CHEST CLINICAL INFORMATION: Shortness of breath. COMPARISON: Chest radiograph dated from 09/01/2021. TECHNIQUE: AP view of the chest was obtained. FINDINGS: Left-sided chest port terminating within the proximal right atrium, similar to prior. Stable appearance of the cardiomediastinal silhouette. No focal airspace opacities, pleural effusions or pneumothorax. No acute osseous abnormalities. Visualized upper abdomen is within normal limits. XR/XR chest 1V IMPRESSION: No acute cardiopulmonary findings.
--- NOTE | 2021-11-08 18:24 | ED.SOB ---
HPI - SOB/Dyspnea General Chief Complaint: Dyspnea <MARISOL John - Last Filed: 11/08/21 21:18> Stated Complaint: Asthma <MARISOL John - Last Filed: 11/08/21 21:18> Time Seen by Provider: 11/08/21 18:15 <MARISOL John - Last Filed: 11/08/21 21:18> Source: patient <MARISOL John - Last Filed: 11/08/21 21:18> Mode of arrival: ambulatory <MARISOL John Last Filed: 11/08/21 21:18> Limitations: other ( Poor historian) <MARISOL John Last Filed: 11/08/21 21:18> History of Present Illness HPI Narrative: 50 year old female past medical history of poorly controlled asthma/COPD, afib, recurrent DVT's and PEs, CHF, depression/anxiety, obesity here with complaints of shortness of breath and cough since this am. Patient tells me that her cough is productive of thick sputum. She tells me that she is recovering from COVID and she was recently hospitalized at [facility] for a month due to pulmonary embolisms. She tells me that she is currently on 2 different blood thinners she is on warfarin 6 mg and she started Lovenox injections this morning. Patient appears to be a poor historian. She also tells me that her face appears to be more swollen than usual. She has used her upon multiple times, she is unable to quantify how many times. She has also had several breathing treatments at home. She denies chest pain, nausea, vomiting, abdominal pain, fevers, chills, weakness, headache, dizziness. She is not a smoker. <MARISOL John Last Filed: 11/08/21 21:18> MD elicited complaint: shortness of breath and asthma attack <MARISOL John Last Filed: 11/08/21 21:18> Pertinent past history: COPD and asthma <MARISOL John Last Filed: 11/08/21 21:18> Onset (ago): day(s) (1) <MARISOL John - Last Filed: 11/08/21 21:18> Context: recent illness ( tells me she is recovering from COVID) <MARISOL John - Last Filed: 11/08/21 21:18> Timing: constant <MARISOL John - Last Filed: 11/08/21 21:18> Severity: severe <MARISOL John - Last Filed: 11/08/21 21:18> Exacerbating factors: nothing <MARISOL John - Last Filed: 11/08/21 21:18> Relieving factors: nothing <MARISOL John - Last Filed: 11/08/21 21:18> Known history of: COPD, asthma, PE and DVT <MARISOL John - Last Filed: 11/08/21 21:18> Associated symptoms: cough ( productive in nature) <MARISOL John - Last Filed: 11/08/21 21:18> Treatment prior to arrival: bronchodilator <MARISOL John - Last Filed: 11/08/21 21:18> Related Data Home Medications: Home Medications Medication Instructions Recorded Confirmed montelukast 10 mg tablet 10 mg PO BEDTIME 09/03/20 07/09/21 trazodone 100 mg tablet 150 mg PO BEDTIME 09/03/20 07/09/21 omeprazole 40 mg capsule,delayed 40 mg PO BEDTIME 02/16/21 07/09/21 release ipratropium 0.5 mg-albuterol 3 mg 3 ml INHALATION Q6H PRN 03/08/21 07/09/21 (2.5 mg base)/3 mL nebulization soln risperidone 1 mg tablet (Risperdal) 1 mg PO BEDTIME 05/13/21 07/09/21 diltiazem HCl 120 mg 1 cap PO DAILY 07/09/21 07/09/21 capsule,extended release 24 hr escitalopram oxalate 20 mg tablet 1 tab PO DAILY 07/09/21 07/09/21 fludrocortisone 0.1 mg tablet 1 tab PO DAILY 07/09/21 07/09/21 potassium chloride 20 mEq 1 tab PO BID 07/09/21 07/09/21 tablet,extended release(part/cryst) metformin 500 mg tablet mg PO 08/27/21 Previous Rx's Medication Instructions Recorded albuterol sulfate 90 mcg/actuation 2 puff INHALATION RQ4H PRN #6.7 g 05/17/21 aerosol inhaler (Ventolin HFA) lorazepam 1 mg tablet (Ativan) 1 mg PO BID PRN #30 tab 05/17/21 prednisone 10 mg tablet 40 mg PO DAILY #16 tab 07/10/21 fluticasone fur. 200 mcg-umeclid 1 inh INHALATION DAILY 30 Days #1 08/27/21 62.5 mcg-vilant 25 mcg ea inhalat.powder (Trelegy Ellipta) <MARISOL John - Last Filed: 11/08/21 21:18> Allergies/Adverse Reactions: Allergies Allergy/AdvReac Type Severity Reaction Status Date / Time azithromycin Allergy Intermediate ITCHING Verified 08/27/21 15:17 [From ZITHROMAX Z-XANDER] amoxicillin [AMOXICILLIN] Allergy Unknown UNKNOWN, Verified 08/27/21 15:17 hives, swelling budesonide [From SYMBICORT] Allergy Unknown UNKNOWN Verified 08/27/21 15:17 cefpodoxime [From VANTIN] Allergy Unknown UNKNOWN Verified 08/27/21 15:17 cefuroxime [From CEFTIN] Allergy Unknown UNKNOWN Verified 08/27/21 15:17 Cephalosporins Allergy Unknown UNKNOWN Verified 08/27/21 15:17 [CEPHALOSPORINS] ciprofloxacin [From CIPRO] Allergy Unknown UNKNOWN Verified 08/27/21 15:17 diphtheria,pertussis Allergy Unknown Unknown Verified 08/27/21 15:17 (acellular),te [Adacel(Tdap Adolesn/Adult)(PF)] erythromycin base Allergy Unknown UNKNOWN Verified 08/27/21 15:17 [ERYTHROMYCIN BASE] fluticasone [Advair Diskus] Allergy Unknown Unknown Verified 08/27/21 15:17 formoterol [From SYMBICORT] Allergy Unknown UNKNOWN Verified 08/27/21 15:17 hydrocodone [From VICODIN] Allergy Unknown unknown Verified 08/27/21 15:17 Iodinated Contrast Media Allergy Unknown UNKNOWN Verified 08/27/21 15:17 [CONTRAST, IV] levofloxacin [From LEVAQUIN] Allergy Unknown UNKNOWN Verified 08/27/21 15:17 penicillin G Allergy Unknown Unknown Verified 08/27/21 15:17 penicillin V Allergy Unknown Unknown Verified 08/27/21 15:17 Penicillins [PENICILLINS] Allergy Unknown UNKNOWN Verified 08/27/21 15:17 salmeterol [Advair Diskus] Allergy Unknown Unknown Verified 08/27/21 15:17 sertraline [From ZOLOFT] Allergy Unknown SUICIDAL Verified 08/27/21 15:17 Sulfa (Sulfonamide Allergy Unknown hives Verified 08/27/21 15:17 Antibiotics) tetanus and diphtheria Allergy Unknown UNKNOWN Verified 08/27/21 15:17 toxoids [TETANUS & DIPHTHERIA TOXOIDS] Vantin Allergy Unknown Unknown Verified 08/27/21 15:17 ketorolac [From TORADOL] AdvReac Mild ITCHING Verified 08/27/21 15:17 Ceftin Allergy Unknown Unknown Uncoded 03/06/21 20:19 IV dye Allergy Unknown Unknown Uncoded 03/06/21 20:19 Symbicort Allergy Unknown Unknown Uncoded 03/06/21 20:19 Tetanus Allergy Unknown Unknown Uncoded 03/06/21 20:19 Erythromycin Allergy Unknown Uncoded 03/06/21 20:19 <MARISOL John - Last Filed: 11/08/21 21:18> Review of Systems Review of Systems: Constitutional : No Fever, No Chills ENT/Mouth : No sore throat, No Rhinorrhea, No Swallowing Difficulty Eyes: No Eye Pain, No Swelling, No Redness Cardiovascular : No Chest Pain, + SOB, No Orthopnea, + Edema Respiratory : + Cough, + Sputum, + Wheezing, + dyspnea Gastrointestinal : No Nausea, No Vomiting, No Diarrhea, No abdominal Pain, No Hematochezia, No Melena Genitourinary : No Dysuria, No Urinary Frequency, No Hematuria Musculoskeletal : No joint pain, No Myalgias Skin : No Skin Lesions, No rash Neuro : No Weakness, No Numbness, No Dizziness, No Headache Psych : No Anxiety/Panic, No Depression All other systems reviewed and are negative <MARISOL John Last Filed: 11/08/21 21:18> Yes all other systems are reviewed and are negative <MARISOL John Last Filed: 11/08/21 21:18> PMFSH Past Medical History Attestation statement: The following information was validated with the patient. <MARISOL John - Last Filed: 11/08/21 21:18> Source: old records reviewed and nursing notes reviewed <MARISOL John - Last Filed: 11/08/21 21:18> Medical History: Medical History Anxiety Asthma Atrial fibrillation CHF (congestive heart failure) Depression DVT (deep venous thrombosis) Hypertension Irritable bowel Morbid obesity Pulmonary embolism <MARISOL John - Last Filed: 11/08/21 21:18> Surgical History: Surgical History H/O adenoidectomy History of hysterectomy History of tonsillectomy Hx of breast reduction, elective <MARISOL John - Last Filed: 11/08/21 21:18> Social History Social History: Social History Household Members: Spouse and Children Household Members Other:: 3 Housing: House Housing Other:: duplex Do you presently have visiting nurse or other home services: No Alcohol intake: unknown Patient Tobacco Use Status: Former Tobacco user e-Cigarette/Vaping Use: Never Used Second Hand Smoke Exposure: No Substance Use Type: Marijuana Advance Directives: Yes Advance Directives on File: Yes Advance Directives Date on File: 09/06/20 service: No Current occupational status: disabled Sexual orientation: Straight/Heterosexual <MARISOL John - Last Filed: 11/08/21 21:18> Physical Exam Vital Signs: Vital Signs: Last Vital Signs Temp 99.6 F 11/08/21 18:21 Pulse 103 H 11/08/21 22:00 Resp 25 H 11/08/21 22:00 BP 105/41 L 11/08/21 22:00 Pulse Ox 96 11/08/21 22:00 BMI result Body Mass Index 44.3 VSS <MARISOL John - Last Filed: 11/08/21 21:18> Vital Signs: Last Vital Signs Temp 99.6 F 11/08/21 18:21 Pulse 103 H 11/08/21 22:00 Resp 25 H 11/08/21 22:00 BP 105/41 L 11/08/21 22:00 Pulse Ox 96 11/08/21 22:00 BMI result Body Mass Index 44.3 <MARISOL Angulo - Last Filed: 11/08/21 22:39> Appearance: Alert.? Oriented X3.? No acute distress.?+ anxious Head: Normocephalic, atraumatic, no step-offs or deformities Eyes: Pupils equal, round and reactive to light.? ENT: Pharynx normal.? Neck: Normal inspection.? Neck supple.? CVS: Normal heart rate and rhythm.? Pulses normal.? Respiratory: + mild respiratory distress.? + faint crackles to bilateral lower lobes an expiratory wheezing appreciated. Abdomen: Soft and nontender.? Skin: Skin warm and dry.? Normal skin color.? Normal skin turgor.? Extremities: No lower extremity edema.? No calf ttp. 5/5 strength to bilateral upper and lower extremities Back: No midline tenderness, no C-spine tenderness, full range of motion, no CVA tenderness bilaterally Neuro: Oriented X 3.? No motor deficit.? No sensory deficit. <MARISOL John - Last Filed: 11/08/21 21:18> Course Reevaluation(s) Reevaluation #1: Patient is noted to be slightly anemic. No acute electrolyte abnormalities. PT 17.0, INR 1.5. D-dimer negative. <MARISOL John - Last Filed: 11/08/21 21:18> Time: 20:45 <MARISOL John - Last Filed: 11/08/21 21:18> Reevaluation #2: Unlikley PE. CXR no acute findings. No calf pain - sol, unlikley DVT. Patient states both her legs have been swollen lately, appears to be her baseline. BNP 82, unlikely CHF. Likley asthma exacerbation. Second Duoneb ordered. Sign-out will be given to care a PA. likely patient will be discharged if improvement with the DuoNeb. <MARISOL John - Last Filed: 11/08/21 21:18> Time: 21:17 <MARISOL John - Last Filed: 11/08/21 21:18> Reevaluation #3: on re-evaluation after 2nd DuoNeb patient is still with shallow breath sounds and expiratory wheeze. plan will be for admission, Solu-Medrol/ magnesium added and additional neb treatment <MARISOL Angulo - Last Filed: 11/08/21 22:39> Time: 22:38 <MARISOL Angulo - Last Filed: 11/08/21 22:39> MDM - SOB/Dyspnea MDM Narrative Medical decision making narrative: 1834 50 yo F pmhx poorly controlled asthma/COPD, afib, recurrent DVT's, CHF, depression/anxiety, obesity here with complaints of shortness of breath and productive cough since this AM. She tells me that she was at [facility] for 1 month recently and she is recovering fro covid. Tells me that she is currently comes of warfarin daily and they have added Lovenox injections, her 1st 1 was this morning. Obtained records from [facility] where she was seen yesterday for dehydration her last visit documentation states patient has a history of recurrent PEs and DVTs she was on warfarin and apixaban. at 1 point her anticoagulation was discontinued and she had an IVC filter placed in August of 2021. Despite the IVC filter she developed a pulmonary embolism in September 2021 in the setting of COVID-19 infection, warfarin was resumed. Plan at this time is to obtain basic labs, x-ray, DuoNeb EKG, cardiac monitoring, d-dimer <MARISOL John - Last Filed: 11/08/21 21:18> Medical Records Attestation: I reviewed the patient's medical records. <MARISOL John - Last Filed: 11/08/21 21:18> Lab Data Attestation: I reviewed the patient's lab results. <MARISOL John - Last Filed: 11/08/21 21:18> Result diagrams: : 11/08/21 19:17 11/08/21 19:17 <MARISOL John - Last Filed: 11/08/21 21:18> Labs: Lab Results 11/08/21 11/08/21 11/08/21 Range/Units 18:33 19:17 19:17 WBC 6.3 (4.8-10.8) X10*3/uL RBC 2.97 L (4.20-5.50) X10*6/uL Hgb 8.7 L (12.0-16.0) g/dl Hct 27.8 L (37.0-47.0) % MCV 93.6 (80.0-98.0) fL MCH 29.3 (27.0-33.0) pg MCHC 31.3 (31.0-35.0) g/dl RDW 19.2 H (11.0-16.0) % Plt Count 156 L (160-400) X10*3/uL MPV 10.7 (9.4-12.3) fL Immature Gran % (Auto) 2.1 H (0.0-0.4) % Neut % (Auto) 67.9 (45-73) % Lymph % (Auto) 21.3 (20-40) % [place] % (Auto) 7.9 (2-11) % Eos % (Auto) 0.6 (0-4) % Baso % (Auto) 0.2 (0-2) % Lymph # (Auto) 1.4 (1.2-4.9) X10*3/uL [place] # (Auto) 0.5 (0.1-1.2) X10*3/uL Eos # (Auto) 0.0 (0.0-0.4) X10*3/uL Baso # (Auto) 0.0 (0.0-0.2) X10*3/uL Abs Immat Gran (auto) 0.13 H (0.00-0.03) X10*3/uL Absolute Neuts (auto) 4.3 (2.0-8.3) x10*3/uL Absolute Nucleated RBC 0.000 (0.0-0.012) X10*3/uL Nucleated RBC % (auto) 0.0 (0.0-0.2) /100WBC PT 17.0 H (9.9-13.0) SEC INR 1.5 H (0.9-1.1) APTT 103.8 H* D (24.1-38.0) SEC D-Dimer High Sensitivty < 150 NG/ML Sodium (135-145) mmol/L Potassium (3.3-5.1) mmol/L Chloride (96-108) mmol/L Carbon Dioxide (22-29) mmol/L Anion Gap (12-20) BUN (9-16) mg/dL Creatinine (0.5-1.4) mg/dL Estim Creat Clear Calc Estimated GFR Random Glucose (60-115) mg/dL Calcium (8.4-10.2) mg/dL Total Bilirubin (0.0-1.0) mg/dL AST (5-31) U/L ALT (0-31) U/L Alkaline Phosphatase (39-117) U/L B-Natriuretic Peptide (<100) pg/mL Total Protein (6.5-8.0) g/dL Albumin (3.5-5.0) g/dL COVID-19 (ELYSE) Negative (Negative) COVID-19 Clin Com See Note 11/08/21 11/08/21 Range/Units 19:17 19:17 WBC (4.8-10.8) X10*3/uL RBC (4.20-5.50) X10*6/uL Hgb (12.0-16.0) g/dl Hct (37.0-47.0) % MCV (80.0-98.0) fL MCH (27.0-33.0) pg MCHC (31.0-35.0) g/dl RDW (11.0-16.0) % Plt Count (160-400) X10*3/uL MPV (9.4-12.3) fL Immature Gran % (Auto) (0.0-0.4) % Neut % (Auto) (45-73) % Lymph % (Auto) (20-40) % [place] % (Auto) (2-11) % Eos % (Auto) (0-4) % Baso % (Auto) (0-2) % Lymph # (Auto) (1.2-4.9) X10*3/uL [place] # (Auto) (0.1-1.2) X10*3/uL Eos # (Auto) (0.0-0.4) X10*3/uL Baso # (Auto) (0.0-0.2) X10*3/uL Abs Immat Gran (auto) (0.00-0.03) X10*3/uL Absolute Neuts (auto) (2.0-8.3) x10*3/uL Absolute Nucleated RBC (0.0-0.012) X10*3/uL Nucleated RBC % (auto) (0.0-0.2) /100WBC PT (9.9-13.0) SEC INR (0.9-1.1) APTT (24.1-38.0) SEC D-Dimer High Sensitivty NG/ML Sodium 142 (135-145) mmol/L Potassium 4.0 (3.3-5.1) mmol/L Chloride 109 H (96-108) mmol/L Carbon Dioxide 23 (22-29) mmol/L Anion Gap 14 (12-20) BUN 7 L (9-16) mg/dL Creatinine 0.82 (0.5-1.4) mg/dL Estim Creat Clear Calc 87.7 Estimated GFR > 60 Random Glucose 144 H (60-115) mg/dL Calcium 8.5 (8.4-10.2) mg/dL Total Bilirubin 0.6 (0.0-1.0) mg/dL AST 11 (5-31) U/L ALT 15 (0-31) U/L Alkaline Phosphatase 65 D (39-117) U/L B-Natriuretic Peptide 82 (<100) pg/mL Total Protein 5.5 L (6.5-8.0) g/dL Albumin 3.4 L (3.5-5.0) g/dL COVID-19 (ELYSE) (Negative) COVID-19 Clin Com <MARISOL John - Last Filed: 11/08/21 21:18> Lab Results 11/08/21 11/08/21 11/08/21 Range/Units 18:33 19:17 19:17 WBC 6.3 (4.8-10.8) X10*3/uL RBC 2.97 L (4.20-5.50) X10*6/uL Hgb 8.7 L (12.0-16.0) g/dl Hct 27.8 L (37.0-47.0) % MCV 93.6 (80.0-98.0) fL MCH 29.3 (27.0-33.0) pg MCHC 31.3 (31.0-35.0) g/dl RDW 19.2 H (11.0-16.0) % Plt Count 156 L (160-400) X10*3/uL MPV 10.7 (9.4-12.3) fL Immature Gran % (Auto) 2.1 H (0.0-0.4) % Neut % (Auto) 67.9 (45-73) % Lymph % (Auto) 21.3 (20-40) % [place] % (Auto) 7.9 (2-11) % Eos % (Auto) 0.6 (0-4) % Baso % (Auto) 0.2 (0-2) % Lymph # (Auto) 1.4 (1.2-4.9) X10*3/uL [place] # (Auto) 0.5 (0.1-1.2) X10*3/uL Eos # (Auto) 0.0 (0.0-0.4) X10*3/uL Baso # (Auto) 0.0 (0.0-0.2) X10*3/uL Abs Immat Gran (auto) 0.13 H (0.00-0.03) X10*3/uL Absolute Neuts (auto) 4.3 (2.0-8.3) x10*3/uL Absolute Nucleated RBC 0.000 (0.0-0.012) X10*3/uL Nucleated RBC % (auto) 0.0 (0.0-0.2) /100WBC PT 17.0 H (9.9-13.0) SEC INR 1.5 H (0.9-1.1) APTT 103.8 H* D (24.1-38.0) SEC D-Dimer High Sensitivty < 150 NG/ML Sodium (135-145) mmol/L Potassium (3.3-5.1) mmol/L Chloride (96-108) mmol/L Carbon Dioxide (22-29) mmol/L Anion Gap (12-20) BUN (9-16) mg/dL Creatinine (0.5-1.4) mg/dL Estim Creat Clear Calc Estimated GFR Random Glucose (60-115) mg/dL Calcium (8.4-10.2) mg/dL Total Bilirubin (0.0-1.0) mg/dL AST (5-31) U/L ALT (0-31) U/L Alkaline Phosphatase (39-117) U/L B-Natriuretic Peptide (<100) pg/mL Total Protein (6.5-8.0) g/dL Albumin (3.5-5.0) g/dL COVID-19 (ELYSE) Negative (Negative) COVID-19 Clin Com See Note 11/08/21 11/08/21 Range/Units 19:17 19:17 WBC (4.8-10.8) X10*3/uL RBC (4.20-5.50) X10*6/uL Hgb (12.0-16.0) g/dl Hct (37.0-47.0) % MCV (80.0-98.0) fL MCH (27.0-33.0) pg MCHC (31.0-35.0) g/dl RDW (11.0-16.0) % Plt Count (160-400) X10*3/uL MPV (9.4-12.3) fL Immature Gran % (Auto) (0.0-0.4) % Neut % (Auto) (45-73) % Lymph % (Auto) (20-40) % [place] % (Auto) (2-11) % Eos % (Auto) (0-4) % Baso % (Auto) (0-2) % Lymph # (Auto) (1.2-4.9) X10*3/uL [place] # (Auto) (0.1-1.2) X10*3/uL Eos # (Auto) (0.0-0.4) X10*3/uL Baso # (Auto) (0.0-0.2) X10*3/uL Abs Immat Gran (auto) (0.00-0.03) X10*3/uL Absolute Neuts (auto) (2.0-8.3) x10*3/uL Absolute Nucleated RBC (0.0-0.012) X10*3/uL Nucleated RBC % (auto) (0.0-0.2) /100WBC PT (9.9-13.0) SEC INR (0.9-1.1) APTT (24.1-38.0) SEC D-Dimer High Sensitivty NG/ML Sodium 142 (135-145) mmol/L Potassium 4.0 (3.3-5.1) mmol/L Chloride 109 H (96-108) mmol/L Carbon Dioxide 23 (22-29) mmol/L Anion Gap 14 (12-20) BUN 7 L (9-16) mg/dL Creatinine 0.82 (0.5-1.4) mg/dL Estim Creat Clear Calc 87.7 Estimated GFR > 60 Random Glucose 144 H (60-115) mg/dL Calcium 8.5 (8.4-10.2) mg/dL Total Bilirubin 0.6 (0.0-1.0) mg/dL AST 11 (5-31) U/L ALT 15 (0-31) U/L Alkaline Phosphatase 65 D (39-117) U/L B-Natriuretic Peptide 82 (<100) pg/mL Total Protein 5.5 L (6.5-8.0) g/dL Albumin 3.4 L (3.5-5.0) g/dL COVID-19 (ELYSE) (Negative) COVID-19 Clin Com <MARISOL Angulo - Last Filed: 11/08/21 22:39> Imaging Data Chest x-ray: Attestation: I personally reviewed and interpreted this imaging study as follows: <MARISOL John Last Filed: 11/08/21 21:18> Radiologist's impression: FINDINGS: Left-sided chest port terminating within the proximal right atrium, similar to prior. Stable appearance of the cardiomediastinal silhouette. No focal airspace opacities, pleural effusions or pneumothorax. No acute osseous abnormalities. Visualized upper abdomen is within normal limits. XR/XR chest 1V IMPRESSION: No acute cardiopulmonary findings. <MARISOL John Last Filed: 11/08/21 21:18> ECG Data Attestation: I personally reviewed and interpreted this ECG as follows: <MARISOL John Last Filed: 11/08/21 21:18> ECG interpretation date: 11/08/21 <MARISOL John Filed: 11/08/21 21:18> ECG interpretation time: 19:13 <MARISOL John - Last Filed: 11/08/21 21:18> Prior ECG tracings: available for review <MARISOL John - Last Filed: 11/08/21 21:18> Interpretation: Ventricular rate of 113, RI normal, QRS normal, QT / QTC normal EKG shows sinus tachycardia. No ST elevations or inversions that are concerning for ischemia. No significant changes when compared with EKG from September 01, 2021. <MARISOL John - Last Filed: 11/08/21 21:18> Critical Care Time Critical Care Time Critical Care Time: No <MARISOL John Last Filed: 11/08/21 21:18> Discharge Plan Discharge Clinical Impression: Asthma with exacerbation <MARISOL John Last Filed: 11/08/21 21:18> Patient Disposition: Home, Self-Care <MARISOL John - Last Filed: 11/08/21 21:18> Instructions: Asthma (ED) <MARISOL John - Last Filed: 11/08/21 21:18> Additional Instructions: Take your medications as prescribed. If you were prescribed antibiotics today, it is important that you take your medication to their entirety, do not skip any doses, do not finish them early. Follow-up with your primary care provider this week. 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 Return to the emergency department with new or worsening symptoms. Such as chest pain, shortness of breath, fevers, chills, nausea, vomiting, abdominal pain, headache, weakness. In case of emergency call 911 <MARISOL John Last Filed: 11/08/21 21:18> Prescriptions: No Action risperidone [Risperdal] 1 mg Tablet 1 mg PO BEDTIME RF: 0 albuterol sulfate [Ventolin HFA] 90 mcg/actuation Hfa Aerosol Inhaler 2 puff inhalation RQ4H PRN (Reason: Shortness Of Breath) Qty: 6.7 RF: 0 lorazepam [Ativan] 1 mg tablet 1 mg PO BID PRN (Reason: anxiety) Qty: 30 RF: 0 montelukast 10 mg Tablet 10 mg PO BEDTIME RF: 0 trazodone 100 mg Tablet 150 mg PO BEDTIME RF: 0 omeprazole 40 mg Capsule,Delayed Release(Dr/Ec) 40 mg PO BEDTIME RF: 0 ipratropium-albuterol 0.5 mg-3 mg(2.5 mg base)/3 mL Solution For Nebulization 3 ml INHALATION Q6H PRN (Reason: Wheezing) RF: 0 diltiazem HCl 120 mg capsule,extended release 24hr 1 cap PO DAILY RF: 0 escitalopram oxalate 20 mg tablet 1 tab PO DAILY RF: 0 potassium chloride 20 mEq tablet,ER particles/crystals 1 tab PO BID RF: 0 fludrocortisone 0.1 mg tablet 1 tab PO DAILY RF: 0 prednisone 10 mg tablet 40 mg PO DAILY Qty: 16 RF: 0 Trelegy Ellipta 200-62.5-25 mcg blister with device 1 inh inhalation DAILY 30 Days Qty: 1 RF: 6 <MARISOL John - Last Filed: 11/08/21 21:18> Referrals: Spohie Tang MD [Primary Care Provider] - 2 days <MARISOL John - Last Filed: 11/08/21 21:18> Stand Alone Forms: Work/School Release <MARISOL John - Last Filed: 11/08/21 21:18>
--- NOTE | 2021-11-08 18:37 | ECG_ITS ---
Test Reason : SOB Blood Pressure : / mmHG Vent. Rate : 113 BPM Atrial Rate : 113 BPM P-R Int : 150 ms QRS Dur : 074 ms QT Int : 332 ms P-R-T Axes : 051 -16 050 degrees QTc Int : 455 ms Sinus tachycardia Inferior infarct , age undetermined Cannot rule out Anterior infarct (cited on or before 08-NOV-2021) Abnormal ECG When compared with ECG of 01-SEP-2021 21:41, Nonspecific T wave abnormality no longer evident in Anterior leads Referred By: Freedom Arias Electronically Signed By:Carlos Quick
[2021-11-08] MEDS: Albuterol/Iprat 2.5/0.5MG 3 ML AMPUL.NEB INHALE ×2 (18:52→21:53)
[2021-11-08 18:54] LABS: COVID-19 Test Negative (Negative); IDNOW Serial# 55D5AD1C
[2021-11-08 19:29] LABS: MANUAL DIFF FLAG NO
[2021-11-08 19:36] LABS: INTERNATIONAL NORM RATIO 1.5 (0.9-1.1)
[2021-11-08 19:48] LABS: Basophils Percent Auto 0.2 % (0-2); Eosinophils Percent Auto 0.6 % (0-4); Hematocrit 27.8 % (37.0-47.0); Hemoglobin 8.7 g/dl (12.0-16.0); Imm Gran Abs Auto 0.13 X10*3/uL (0.00-0.03); Imm Gran Pct Auto 2.1 % (0.0-0.4); Lymphocytes Absolute Auto 1.4 X10*3/uL (1.2-4.9); Lymphocytes Percent Auto 21.3 % (20-40); Mean Corpuscular HGB Conc 31.3 g/dl (31.0-35.0); Mean Corpuscular Hemoglobin 29.3 pg (27.0-33.0); Mean Corpuscular Volume 93.6 fL (80.0-98.0); Mean Platelet Volume 10.7 fL (9.4-12.3); Monocytes Absolute Auto 0.5 X10*3/uL (0.1-1.2); Monocytes Percent Auto 7.9 % (2-11); Neutrophils Absolute Auto 4.3 x10*3/uL (2.0-8.3); Neutrophils Percent Auto 67.9 % (45-73); Platelet Count 156 X10*3/uL (160-400); Red Blood Count 2.97 X10*6/uL (4.20-5.50); Red Cell Distribution Width 19.2 % (11.0-16.0); White Blood Count 6.3 X10*3/uL (4.8-10.8)
[2021-11-08 19:49] LABS: B Type Natriuretic Peptide 82 pg/mL (<100)
[2021-11-08 19:53] LABS: D Dimer High Sensitivity < 150 NG/ML
[2021-11-08 19:58] LABS: Alanine Aminotransferase 15 U/L (0-31); Albumin Level 3.4 g/dL (3.5-5.0); Alkaline Phosphatase 65 U/L (39-117); Anion Gap 14 (12-20); Aspartate Amino Transferase 11 U/L (5-31); Bilirubin Total 0.6 mg/dL (0.0-1.0); Blood Urea Nitrogen 7 mg/dL (9-16); Calcium 8.5 mg/dL (8.4-10.2); Carbon Dioxide 23 mmol/L (22-29); Chloride 109 mmol/L (96-108); Creatinine Clr Calc Pharmacy 87.7; Estimated Glomerular Filt Rate > 60; Glucose Random 144 mg/dL (60-115); Partial Thromboplastin Time 103.8 SEC (24.1-38.0); Sodium 142 mmol/L (135-145); Total Protein 5.5 g/dL (6.5-8.0)
[2021-11-08] MEDS: Ketorolac Tromethamine 30 MG/ML VIAL IVPUSH (20:03)
--- NOTE | 2021-11-08 21:12 | PC.NURSE ---
pt requesting pain meds c/o 07/29 pain, provider notified, no new orders given at this time
[2021-11-08] MEDS: Morphine Sulfate 2 MG/ML CARTRIDGE IVPUSH (21:59)
--- NOTE | 2021-11-08 22:01 | PC.NURSE ---
patient medicated per order
[2021-11-08] MEDS: diphenhydrAMINE HCL 50 MG/ML VIAL IVPUSH (23:02)
[2021-11-08] MEDS: Magnesium Sulfate/H2O 2 GM/50 ML PIGGYBACK IV (23:02)
[2021-11-08] MEDS: methylPREDNISolone Sod Succ 125 MG/2 ML VIAL IVPUSH (23:02)
--- NOTE | 2021-11-08 23:02 | P.HPHOSP_ITS ---
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 Patient reports that she was recently discharged on last Friday from the [facility]. Mentions that she was COVID-19 positive in September. Also noted to have pulmonary embolism. On Coumadin and bridging Lovenox. Last took her Lovenox dose this morning. Complains of cough without any sputum production. Denies any fevers and chills. Reports she still has leg generalized body aches and tiredness. Denies any numbness tingling or focal weakness. Reports that she has chest discomfort on deep inspiration. Review of all other systems is negative except mentioned above ER course: Per ER team patient on presentation noted to be diffusely wheezing; saturating 94% on supplemental oxygen; given nebulizations and steroids. Admitted for asthma exacerbation. EKG was nonischemic. D-dimer was negative. But noted to have elevated PTT. INR subtherapeutic. [facility] Medical History Anxiety Asthma Atrial fibrillation CHF (congestive heart failure) Depression DVT (deep venous thrombosis) Hypertension Irritable bowel Morbid obesity Pulmonary embolism Surgical History H/O adenoidectomy History of hysterectomy History of tonsillectomy Hx of breast reduction, elective Social History Household Members: Spouse and Children Household Members Other:: 3 Housing: House Housing Other:: duplex Do you presently have visiting nurse or other home services: No Alcohol intake: unknown Patient Tobacco Use Status: Former Tobacco user e-Cigarette/Vaping Use: Never Used Second Hand Smoke Exposure: No Substance Use Type: Marijuana Advance Directives: Yes Advance Directives on File: Yes Advance Directives Date on File: 09/06/20 service: No Current occupational status: disabled Sexual orientation: Straight/Heterosexual Meds Allergies Allergy/AdvReac Type Severity Reaction Status Date / Time azithromycin Allergy Intermediate ITCHING Verified 08/27/21 15:17 [From ZITHROMAX Z-XANDER] amoxicillin Allergy Unknown UNKNOWN, Verified 08/27/21 15:17 [AMOXICILLIN] hives, swelling budesonide [From Allergy Unknown UNKNOWN Verified 08/27/21 15:17 SYMBICORT] cefpodoxime [From Allergy Unknown UNKNOWN Verified 08/27/21 15:17 VANTIN] cefuroxime [From Allergy Unknown UNKNOWN Verified 08/27/21 15:17 CEFTIN] Cephalosporins Allergy Unknown UNKNOWN Verified 08/27/21 15:17 [CEPHALOSPORINS] ciprofloxacin [From Allergy Unknown UNKNOWN Verified 08/27/21 15:17 CIPRO] diphtheria,pertussis Allergy Unknown Unknown Verified 08/27/21 15:17 (acellular),te [Adacel(Tdap Adolesn/Adult)(PF)] erythromycin base Allergy Unknown UNKNOWN Verified 08/27/21 15:17 [ERYTHROMYCIN BASE] fluticasone [Advair Allergy Unknown Unknown Verified 08/27/21 15:17 Diskus] formoterol [From Allergy Unknown UNKNOWN Verified 08/27/21 15:17 SYMBICORT] hydrocodone [From Allergy Unknown unknown Verified 08/27/21 15:17 VICODIN] Iodinated Contrast Allergy Unknown UNKNOWN Verified 08/27/21 15:17 Media [CONTRAST, IV] levofloxacin [From Allergy Unknown UNKNOWN Verified 08/27/21 15:17 LEVAQUIN] penicillin G Allergy Unknown Unknown Verified 08/27/21 15:17 penicillin V Allergy Unknown Unknown Verified 08/27/21 15:17 Penicillins Allergy Unknown UNKNOWN Verified 08/27/21 15:17 [PENICILLINS] salmeterol [Advair Allergy Unknown Unknown Verified 08/27/21 15:17 Diskus] sertraline [From Allergy Unknown SUICIDAL Verified 08/27/21 15:17 ZOLOFT] Sulfa (Sulfonamide Allergy Unknown hives Verified 08/27/21 15:17 Antibiotics) tetanus and Allergy Unknown UNKNOWN Verified 08/27/21 15:17 diphtheria toxoids [TETANUS & DIPHTHERIA TOXOIDS] Vantin Allergy Unknown Unknown Verified 08/27/21 15:17 ketorolac [From AdvReac Mild ITCHING Verified 08/27/21 15:17 TORADOL] Ceftin Allergy Unknown Unknown Uncoded 05/18/21 20:19 IV dye Allergy Unknown Unknown Uncoded 03/06/21 20:19 Symbicort Allergy Unknown Unknown Uncoded 03/06/21 20:19 Tetanus Allergy Unknown Unknown Uncoded 03/06/21 20:19 Erythromycin Allergy Unknown Uncoded 03/06/21 20:19 Active Medications: Current Medications Magnesium Sulfate (Magnesium Sulfate/H2o) 2 gm in 50 mls @ 25 mls/hr IV ONCE ONE Stop: 11/09/21 00:23 Pharmacy Consult (Consult Rx Perform Med Rec) 1 each MISCELLANE ONCE PRN PRN Reason: Consult order Home Medications Medication Instructions Recorded Confirmed Last Taken Type montelukast 10 mg 10 mg PO BEDTIME 09/03/20 07/09/21 07/08/21 History tablet trazodone 100 mg 150 mg PO 09/03/20 07/09/21 07/08/21 History tablet BEDTIME omeprazole 40 mg 40 mg PO BEDTIME 02/16/21 07/09/21 07/08/21 History capsule,delayed release ipratropium 0.5 3 ml INHALATION 03/08/21 07/09/21 Unknown History mg-albuterol 3 mg Q6H PRN (2.5 mg base)/3 mL nebulization soln risperidone 1 mg 1 mg PO BEDTIME 05/13/21 07/09/21 07/08/21 History tablet (Risperdal) diltiazem HCl 120 1 cap PO DAILY 07/09/21 07/09/21 07/09/21 History mg capsule,extended release 24 hr escitalopram 1 tab PO DAILY 07/09/21 07/09/21 07/09/21 History oxalate 20 mg tablet fludrocortisone 1 tab PO DAILY 07/09/21 07/09/21 07/09/21 History 0.1 mg tablet potassium 1 tab PO BID 07/09/21 07/09/21 07/09/21 History chloride 20 mEq tablet,extended release(part/billy t) metformin 500 mg mg PO 08/27/21 Unknown History tablet Physical Exam Verdana 4l Vital Signs and Narrative: Verdana 4d Verdana 4d Vital Signs: Verdana 4d Verdana 4Bd Last Vital Signs Verdana 4d Boring Machine Operator New 4d Boring Machine Operator New 4d Temp 99.6 F 11/08/21 18:21 Boring Machine Operator New 4d Pulse 103 H 11/08/21 22:00 Bina Loza 4d Resp 25 H 11/08/21 22:00 BP 105/41 L 11/08/21 22:00 Pulse Ox 96 11/08/21 22:00 BMI result Body Mass Index 44.3 Gen: Appears be in no acute distress. Obese. Speaks in full sentences. On supplemental oxygen. HEENT: NCAT, Moist mucosa. Pulmonary: Slightly diminished breath sounds. CVS: Normal S1-S2 Abdomen: BS+, Soft, Nontender Extremities: Warm well perfused Neuro: Alert and awake. Results Labs CBC and Chem 7: 11/08/21 19:17 11/08/21 19:17 Labs: Laboratory Results - last 24 hr 11/08/21 11/08/21 11/08/21 18:33 19:17 19:17 MCV 93.6 MCH 29.3 MCHC 31.3 RDW 19.2 H Plt Count 156 L MPV 10.7 Immature Gran % (Auto) 2.1 H Neut % (Auto) 67.9 Lymph % (Auto) 21.3 [place] % (Auto) 7.9 Eos % (Auto) 0.6 Baso % (Auto) 0.2 Lymph # (Auto) 1.4 [place] # (Auto) 0.5 Eos # (Auto) 0.0 Baso # (Auto) 0.0 Abs Immat Gran (auto) 0.13 H Absolute Neuts (auto) 4.3 Absolute Nucleated RBC 0.000 Nucleated RBC % (auto) 0.0 PT 17.0 H INR 1.5 H APTT 103.8 H* D D-Dimer High Sensitivty < 150 Anion Gap Estim Creat Clear Calc Estimated GFR Random Glucose Calcium Total Bilirubin AST ALT Alkaline Phosphatase B-Natriuretic Peptide Total Protein Albumin COVID-19 (ELYSE) Negative COVID-19 Clin Com See Note 11/08/21 11/08/21 19:17 19:17 MCV MCH MCHC RDW Plt Count MPV Immature Gran % (Auto) Neut % (Auto) Lymph % (Auto) [place] % (Auto) Eos % (Auto) Baso % (Auto) Lymph # (Auto) [place] # (Auto) Eos # (Auto) Baso # (Auto) Abs Immat Gran (auto) Absolute Neuts (auto) Absolute Nucleated RBC Nucleated RBC % (auto) PT INR APTT D-Dimer High Sensitivty Anion Gap 14 Estim Creat Clear Calc 87.7 Estimated GFR > 60 Random Glucose 144 H Calcium 8.5 Total Bilirubin 0.6 AST 11 ALT 15 Alkaline Phosphatase 65 D B-Natriuretic Peptide 82 Total Protein 5.5 L Albumin 3.4 L COVID-19 (ELYSE) COVID-19 Clin Com Imaging Radiologist's Impressions: Impressions Chest X-Ray 11/08/21 19:26 IMPRESSION: No acute cardiopulmonary findings. 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 Noted to be in acute asthma exacerbation. Admitted for further management. Acute asthma exacerbation: Patient able to speak in full sentences. Not in respiratory distress. On supplemental oxygen. Continue nebulizations standing and p.r.n. Solu-Medrol IV t.i.d. Chest pain: Worsens with deep inspiration. EKG nonischemic. D-dimer negative. Troponins negative. Monitor on telemetry. 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 Patient had GI bleed in August of 2021, anticoagulation was stopped and placed on IVC filter. In September patient had PE-started back on warfarin; Patient reported that she took Lovenox therapeutic dose at [facility] on 11/07/21 a.m. Patient's INR is subtherapeutic History of generalized anxiety/depression: Continue home resident however trazodonJose J laradawill GERD: Ppi TONYA: CPAP at night DVT prophylaxis: Patient on systemic anticoagulation Code status: Full code Disposition: Patient had multiple admissions with similar complaints. To follow with Case Management for multidisciplinary approach. Prior investigations: CTA chest: 11/06/21: IMPRESSION: CTA 1. Small segmental emboli and subsegmental emboli may not be detected on this exam... 2. No thoracic aortic aneurysm or dissection.. CHEST 1. Improved aeration of lungs with mild persistent disease in the lower lobes as noted above and no associated effusion. No new lung abnormality.. 2. No change small pericardial effusion. 3. No bony abnormality. Stress test: April 2021: INTERPRETATION: Baseline EKG sinus rhythm Unable to exercise on treadmill due to shortness of breath and dizziness. Patient reported continual chest heaviness rated 8/10 and present since admission. No ischemic EKG changes with pharmacologic stress. Overall risk is higher in patients undergoing pharmacologic stress (who cannot exercise) when compared to patients undergoing exercise stress even if imaging results are normal. Patient reported headache and dizziness following Regadenoson. Aminophylline 50 mg IV given with improvement in symptoms. Chest heaviness did not change during stress or recovery. No arrhythmias. Vital signs stable. Nuclear scan report to follow. Nuclear scan: April 2021: Summary 1. Myocardial perfusion imaging is normal without any fixed or reversible perfusion defect after Regadenoson infusion. 2. LV function is normal at rest and after IV administration of Regadenoson with normal wall motion and thickening. 3. EKG portion of the stress test is reported separately. Quality Stroke Does the patient have a stroke diagnosis?: No VTE Prior VTE?: No VTE Risk Level:: Medical - moderate - high VTE Device Contraindication: Treatment Not Indicated VTE Drug Contraindication: N/A - Med Ordered
--- NOTE | 2021-11-08 23:05 | PC.NURSE ---
patient medicated per order
[2021-11-08] MEDS: Albuterol Sulfate (0.083%) 2.5 MG/3 ML VIAL.NEB 5 MG INHALE (23:25)
[2021-11-09] VITALS (10 sets, daily range): BP systolic 113–130; BP diastolic 55–78; PULSE 75–111; RESP 15–22; TEMP 36.5–36.9; O2SAT 93–99
[2021-11-09] MEDS: Enoxaparin Sodium 100 MG/ML SYRINGE SUBCUT (00:10)
[2021-11-09] MEDS: Morphine Sulfate 2 MG/ML CARTRIDGE IM (00:11)
[2021-11-09 00:21] LABS: Troponin-I High Sensitivity 6.1 ng/L (<3.5-17.0)
--- NOTE | 2021-11-09 00:46 | PC.NURSE ---
Assumed care of pt Pt ambulated over to hospital bed. Pt tolerated well Pt placed on full patient monitor Pt on 2L NC with O2 sat in 96-98% Pt given sandwich and drink per request Will continue to monitor
[2021-11-09] MEDS: Warfarin Sodium 10 MG TABLET 8 MG PO (04:10)
[2021-11-09] MEDS: Morphine Sulfate 2 MG/ML CARTRIDGE 1 MG IVPUSH ×4 (05:08→20:58)
[2021-11-09] MEDS: diphenhydrAMINE HCL 50 MG/ML VIAL 25 MG IVPUSH ×4 (06:10→22:45)
[2021-11-09] MEDS: methylPREDNISolone Sod Succ 40 MG/ML VIAL IVPUSH (06:10)
--- NOTE | 2021-11-09 06:23 | PC.NURSE ---
Pt medicated per DEC Pt tolerated well Pt states achieved partial relief from CP with morphine Pt sitting on stretcher watching TV and playing with phone NAD Will continue to monitor
[2021-11-09 07:35] LABS: Hematocrit 28.5 % (37.0-47.0); Hemoglobin 8.6 g/dl (12.0-16.0); Imm Gran Abs Auto 0.06 X10*3/uL (0.00-0.03); Imm Gran Pct Auto 1.1 % (0.0-0.4); Lymphocytes Absolute Auto 0.2 X10*3/uL (1.2-4.9); Lymphocytes Percent Auto 3.8 % (20-40); MANUAL DIFF FLAG SCAN; Mean Corpuscular HGB Conc 30.2 g/dl (31.0-35.0); Mean Corpuscular Hemoglobin 28.9 pg (27.0-33.0); Mean Corpuscular Volume 95.6 fL (80.0-98.0); Mean Platelet Volume 12.3 fL (9.4-12.3); Monocytes Percent Auto 0.7 % (2-11); Neutrophils Absolute Auto 5.2 x10*3/uL (2.0-8.3); Neutrophils Percent Auto 94.4 % (45-73); Platelet Count 164 X10*3/uL (160-400); Red Blood Count 2.98 X10*6/uL (4.20-5.50); Red Cell Distribution Width 19.2 % (11.0-16.0); SCAN SMEAR FLAG 1; White Blood Count 5.5 X10*3/uL (4.8-10.8)
[2021-11-09 07:58] LABS: SLIDE REVIEW VERIFIED
[2021-11-09 08:15] LABS: Anion Gap 14 (12-20); Blood Urea Nitrogen 10 mg/dL (9-16); Calcium 8.5 mg/dL (8.4-10.2); Carbon Dioxide 24 mmol/L (22-29); Chloride 107 mmol/L (96-108); Creatinine Clr Calc Pharmacy 87.7; Estimated Glomerular Filt Rate > 60; Glucose Random 390 mg/dL (60-115); Potassium 4.5 mmol/L (3.3-5.1); Sodium 140 mmol/L (135-145)
--- NOTE | 2021-11-09 09:11 | PC.NURSE ---
Pt received from [facility] shift: AOX4 and in no acute distress. pt remains on RA and O2 sat within normal limits and respiration normal. NSR noted and lungs clear. Pt abd soft and non-tender. Pt continuously asking for pain medication on the exact time they are due.
[2021-11-09] MEDS: predniSONE 20 MG TABLET 40 MG PO (09:14)
--- NOTE | 2021-11-09 09:15 | PC.NURSE ---
Pt asking for pain medications continuously. Pt noted to self ambulate to BR with no issue, distress and/or complaints.
--- NOTE | 2021-11-09 09:19 | PHA.MEDREC ---
med rec complete, no issues Pharmacy Consult ? Medication Reconciliation Pharmacy has completed the medication reconciliation.
[2021-11-09] MEDS: Albuterol/Iprat 2.5/0.5MG 3 ML AMPUL.NEB INHALE ×3 (09:35→20:28)
[2021-11-09 11:14] LABS: Glucose, Whole Blood 401 mg/dL (60-115)
--- NOTE | 2021-11-09 11:28 | PC.NURSE ---
Pt received ordered solumedrol and as result pt c/o mild itchiness to face. Pt already received ordered PRN dose of benadryl. During morning rounds, MD Fairchild discussed with pt that an additional order of benadryl will be given, but this RN has not received any addtional order. also made aware, at this time, that pt has hx DM and has not had any insulin for the past 2 days. Recent blood sugar of 401. RN will continue to monitor.
--- NOTE | 2021-11-09 12:45 | P.PNIM_ITS ---
Subjective Subjective Date of Service: 11/10/21 Interval History: f/u copd, reports that her face is swollen, i could only appreciate the effect of steroid on her face Review of Systems Gen: no fever Resp: no sob, no cough CV: no chest, no FUNEZ, no leg edema GI: No n/v, no abd pain Neuro: No confusion Physical Exam Vital Signs: Vital Signs: Last Vital Signs Temp 97.7 F 11/09/21 05:05 Pulse 91 11/09/21 11:06 Resp 15 11/09/21 11:06 BP 115/78 11/09/21 11:06 Pulse Ox 96 11/09/21 11:06 BMI result Body Mass Index 44.3 Const: Other: General: AO X 3, no acute distress Resp: CTA bilateral CVS: S1,S2,RRR GI: +BS, NT, no distention Skin: No rash Neuro: motor grossly intact Psych: appropriate affect Objective Data Active Medications Acetaminophen (Acetaminophen 325 Mg Tablet) 650 mg PO Q6H PRN PRN Reason: Pain, Mild (Pain Scale 1-3) Albuterol/Ipratropium (Albuterol/Iprat 2.5/0.5mg 3 Ml Ampul.Neb) 3 ml INHALE RQ4H WHILE AWAKE [facility] Last Admin: 11/09/21 11:11 Dose: Not Given Documented by: DIETER Non-Admin Reason: udn given at 0930 Albuterol/Ipratropium (Albuterol/Iprat 2.5/0.5mg 3 Ml Ampul.Neb) 3 ml INHALE RQ4H PRN PRN Reason: Shortness of Breath/Wheezing Diphenhydramine HCl (Diphenhydramine Hcl 50 Mg/Ml Vial) 25 mg IVPUSH Q4H PRN PRN Reason: Itching Insulin Human Lispro (Insulin Lispro 100 Unit/Ml 3 Ml Vial) 5 unit SUBCUT QIDACHS [facility] Insulin Human Lispro (Insulin Lispro 100 Unit/Ml 3 Ml Vial) 0 unit SUBCUT QIDACHS [facility]; Protocol Melatonin (Melatonin 3 Mg Tablet) 6 mg PO BEDTIME PRN PRN Reason: Insomnia Morphine Sulfate (Morphine Sulfate 2 Mg/Ml Cartridge) 1 mg IVPUSH Q4H PRN; Protocol PRN Reason: pain/sob Last Admin: 11/09/21 11:06 Dose: 1 mg Documented by: KAVEH Pharmacy Consult (Consult Rx Perform Med Rec) 1 each MISCELLANE ONCE PRN PRN Reason: Consult order Prednisone (Prednisone 10 Mg Tablet) 10 mg PO DAILY ONEIDA Senna (Sennosides 8.6 Mg Tablet) 17.2 mg PO BEDTIME PRN PRN Reason: Constipation Sodium Chloride (0.9 % Sodium Chloride Flush 3 Ml Syringe) 3 ml IVFLUSH QSHIFT ONEIDA Last Admin: 11/09/21 07:32 Dose: Not Given Documented by: KAVEH Non-Admin Reason: Med Not Available Labs CBC & Chem 7: 11/09/21 07:05 11/09/21 07:05 Labs: Laboratory Results - last 24 hr 11/08/21 11/08/21 11/08/21 18:33 19:17 19:17 MCV 93.6 MCH 29.3 MCHC 31.3 RDW 19.2 H Plt Count 156 L MPV 10.7 Immature Gran % (Auto) 2.1 H Neut % (Auto) 67.9 Lymph % (Auto) 21.3 [place] % (Auto) 7.9 Eos % (Auto) 0.6 Baso % (Auto) 0.2 Lymph # (Auto) 1.4 [place] # (Auto) 0.5 Eos # (Auto) 0.0 Baso # (Auto) 0.0 Abs Immat Gran (auto) 0.13 H Absolute Neuts (auto) 4.3 Absolute Nucleated RBC 0.000 Nucleated RBC % (auto) 0.0 Smear Tech's Comments PT 17.0 H INR 1.5 H APTT 103.8 H* D D-Dimer High Sensitivty < 150 Anion Gap Estim Creat Clear Calc Estimated GFR POC Glucose Random Glucose Calcium Total Bilirubin AST ALT Alkaline Phosphatase Troponin I High Sens B-Natriuretic Peptide Total Protein Albumin COVID-19 (ELYSE) Negative COVID-19 Clin Com See Note 11/08/21 11/08/21 11/09/21 19:17 19:17 07:05 MCV 95.6 MCH 28.9 MCHC 30.2 L RDW 19.2 H Plt Count 164 MPV 12.3 Immature Gran % (Auto) 1.1 H Neut % (Auto) 94.4 H Lymph % (Auto) 3.8 L [place] % (Auto) 0.7 L Eos % (Auto) 0.0 Baso % (Auto) 0.0 Lymph # (Auto) 0.2 L [place] # (Auto) 0.0 L Eos # (Auto) 0.0 Baso # (Auto) 0.0 Abs Immat Gran (auto) 0.06 H Absolute Neuts (auto) 5.2 Absolute Nucleated RBC 0.000 Nucleated RBC % (auto) 0.0 Smear Tech's Comments VERIFIED PT INR APTT D-Dimer High Sensitivty Anion Gap 14 Estim Creat Clear Calc 87.7 Estimated GFR > 60 POC Glucose Random Glucose 144 H Calcium 8.5 Total Bilirubin 0.6 AST 11 ALT 15 Alkaline Phosphatase 65 D Troponin I High Sens 6.1 B-Natriuretic Peptide 82 Total Protein 5.5 L Albumin 3.4 L COVID-19 (ELYSE) COVID-19 Clin Com 11/09/21 11/09/21 07:05 11:09 MCV MCH MCHC RDW Plt Count MPV Immature Gran % (Auto) Neut % (Auto) Lymph % (Auto) [place] % (Auto) Eos % (Auto) Baso % (Auto) Lymph # (Auto) [place] # (Auto) Eos # (Auto) Baso # (Auto) Abs Immat Gran (auto) Absolute Neuts (auto) Absolute Nucleated RBC Nucleated RBC % (auto) Smear Tech's Comments PT INR APTT D-Dimer High Sensitivty Anion Gap 14 Estim Creat Clear Calc 87.7 Estimated GFR > 60 POC Glucose 401 H* Random Glucose 390 H* Calcium 8.5 Total Bilirubin AST ALT Alkaline Phosphatase Troponin I High Sens B-Natriuretic Peptide Total Protein Albumin COVID-19 (ELYSE) COVID-19 Clin Com Assessment and Plan (1) Acute exacerbation of chronic obstructive airways disease: Status: Acute Assessment and Plan: ?50-year-old female with a past medical history of hypertension, prediabetes, morbid obesity, obstructive sleep apnea, generalized anxiety disorder, depression, OCD, asthma, restless legs syndrome, 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 Noted to be in acute asthma exacerbation.? Admitted for further management.? Acute asthma exacerbation: Better, on PO steroid, contine Nebs and possibly home today Chest pain:? Worsens with deep inspiration.? EKG nonischemic.? D-dimer negative.? Troponins negative.? Monitor on telemetry. 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 Patient had GI bleed in August of 2021, anticoagulation was stopped and placed on IVC filter.? In September patient had PE-started back on warfarin; Patient reported that she took Lovenox therapeutic dose at [facility] on 11/07/21 a.m. Patient's INR is subtherapeutic. She has INR monitoring kit at home and is stock pposed to be on Lovenox and coumadin. History of generalized anxiety/depression: Continue home resident however trazodoneJose Jdal GERD:? Ppi TONYA: CPAP at night Quality Stroke Does the patient have a stroke diagnosis?: No VTE Prior VTE?: No VTE Risk Level:: Medical - moderate - high VTE Device Contraindication: Treatment Not Indicated VTE Drug Contraindication: N/A - Med Ordered
[2021-11-09] MEDS: Insulin Lispro 100 UNIT/ML 3 ML VIAL SUBCUT ×6 (12:51→21:00)
[2021-11-09] MEDS: diphenhydrAMINE HCL 25 MG TABLET PO (12:51)
--- NOTE | 2021-11-09 13:53 | MHC.CM.PN ---
PT REPORTS SHE LIVES WITH HER AND CHILDREN SHE REPORTS BEING INDEPENDENT WITH CARE PT HAS NO HOME SERVICES SHE HAS A NEBULIZER AND INR MACHINE SHE USES AT HOME PT HAS A HCP ON FILE AND HER PCP IS DANK GARCIA DELIVERED, ORIGINAL GIVEN TO PT, COPY SENT TO [facility] CURRENT DC PLAN IS HOME WITH NO SERVICES PTS TO TRANSPORT
[2021-11-09 18:11] LABS: Glucose, Whole Blood 357 mg/dL (60-115)
[2021-11-09 20:52] LABS: Glucose, Whole Blood 385 mg/dL (60-115)
--- NOTE | 2021-11-09 21:00 | PC.NURSE ---
Assumed care of pt Pt c/o redness and itchiness around the eyes. Pt states pain around chest also back Pt given benadryl and morphine per request Pt given cold wash cloth to clean around the eyes Pt tolerated well BG 385. Pt covered with 5 units of lispro and sliding scale Pt tolerated well Will continue to monitor
[2021-11-09] MEDS: Melatonin 3 MG TABLET 6 MG PO (22:45)
[2021-11-09 23:26] LABS: Glucose, Whole Blood 278 mg/dL (60-115)
[2021-11-09] MEDS: ondansetron HCL 4 MG/2 ML VIAL IVPUSH (23:36)
[2021-11-10 00:12] VITALS: PULSE 73; RESP 29; O2SAT 96
[2021-11-10 00:20] LABS: INTERNATIONAL NORM RATIO 1.6 (0.9-1.1); Prothrombin Time 18.6 SEC (9.9-13.0)
[2021-11-10] MEDS: Morphine Sulfate 2 MG/ML CARTRIDGE 1 MG IVPUSH ×4 (00:34→12:46)
[2021-11-10] MEDS: 0.9 % Sodium Chloride Flush 3 ML SYRINGE IVFLUSH ×2 (00:37→08:40)
[2021-11-10 00:41] VITALS: BP 131/56; PULSE 68; RESP 21; O2SAT 95
[2021-11-10] MEDS: diphenhydrAMINE HCL 50 MG/ML VIAL 25 MG IVPUSH (05:02)
[2021-11-10 06:35] VITALS: BP 138/56; PULSE 66; RESP 18; O2SAT 96
[2021-11-10 07:32] LABS: Glucose, Whole Blood 237 mg/dL (60-115)
[2021-11-10] MEDS: Albuterol/Iprat 2.5/0.5MG 3 ML AMPUL.NEB INHALE (07:39)
[2021-11-10 07:41] VITALS: PULSE 71; RESP 17; O2SAT 100
[2021-11-10] MEDS: predniSONE 10 MG TABLET PO (07:57)
[2021-11-10] MEDS: Insulin Lispro 100 UNIT/ML 3 ML VIAL SUBCUT ×4 (07:58→12:29)
[2021-11-10] MEDS: diphenhydrAMINE HCL 50 MG/ML VIAL 12.5 MG IVPUSH (09:26)
[2021-11-10 09:41] VITALS: BP 120/57; PULSE 80; RESP 16; O2SAT 96
[2021-11-10] MEDS: Enoxaparin Sodium 100 MG/ML SYRINGE SUBCUT (10:13)
[2021-11-10 12:21] LABS: Glucose, Whole Blood 159 mg/dL (60-115)
--- NOTE | 2021-11-10 13:02 | P.DS_ITS ---
DS: Providers Provider Date of Service: 11/10/21 Date of admission: 11/08/21 22:55 Primary care physician: Sophie Tang MD DS: Diagnosis Discharge Diagnosis (1) Acute exacerbation of chronic obstructive airways disease: Status: Acute DS: Summary Hospital Course Hospital Course: She was admitted with shortness of breath due to acute exacerbation of asthma and was treated with steroids, bronchodilators by Nebulizer and has improved signficantly, of note she has history of PE and DVT and is supososed to be on coumadin pending therapeutic INR.. Her INR is presetnly 1.6 and she will resume coumadin, she has a home INR monitoring kit at home and presently has Lovenox at home and is able to self inject and advised to take recommended dose of coumadin and Lovnenox until INR is 2 to 3 then stop Lovenox and is to follow up with coumadin clinic. She understands instruction and feels comfortable going home. Time Spent with Patient Time attestation: Total time spent providing and/or coordinating discharge services: Discharge coordination time: Greater than 30 minutes Quality: Stroke Does the patient have a stroke diagnosis?: No Physical Exam Verdana 4l Vital Signs: Verdana 4d Verdana 4d Vital Signs: Verdana 4d Verdana 4Bd Last Vital Signs Verdana 4d Director Of Business Services New 4d Director Of Business Services New 4d Temp 98.5 F 11/09/21 21:07 Director Of Business Services New 4d Pulse 80 11/10/21 09:41 Director Of Business Services NewNew 4d Resp 16 11/10/21 09:41 BP 120/57 L 11/10/21 09:41 Pulse Ox 96 11/10/21 09:41 BMI result Body Mass Index 44.3 DS: Data Data Completed and Pending Completed studies during hospitalization [Text1]: Procedures Assistance with Respiratory Ventilation, Less than 24 Consecutive Hours, Continuous Positive Airway Pressure (07/09/21) Labs on day of discharge: Laboratory Results - last 24 hr 11/09/21 11/09/21 11/09/21 17:58 20:48 23:22 PT INR POC Glucose 357 H* 385 H* 278 H 11/10/21 11/10/21 11/10/21 00:02 07:15 12:18 PT 18.6 H INR 1.6 H POC Glucose 237 H 159 H Discharge Plan Discharge Anticipated Discharge Date/Time: 11/10/21 12:52 Patient Disposition: Home, Self-Care Discharge Diagnosis: Asthma exacerbation Referrals: Sophie Tang MD [Primary Care Provider] - 2 days Discharge Medications: Continued risperidone [Risperdal] 1 mg Tablet 1 mg PO BEDTIME RF: 0 albuterol sulfate [Ventolin HFA] 90 mcg/actuation Hfa Aerosol Inhaler 2 puff inhalation RQ4H PRN (Reason: Shortness Of Breath) Qty: 6.7 RF: 0 montelukast 10 mg Tablet 10 mg PO BEDTIME RF: 0 trazodone 100 mg Tablet 200 mg PO BEDTIME RF: 0 diltiazem HCl 120 mg capsule,extended release 24hr 1 cap PO DAILY RF: 0 escitalopram oxalate 20 mg tablet 40 mg PO DAILY RF: 0 lorazepam [Ativan] 1 mg tablet 2 mg PO DAILY PRN (Reason: anxiety) RF: 0 warfarin 3 mg tablet 8 mg PO DAILY@1800 RF: 0 pantoprazole 40 mg tablet,delayed release (DR/EC) 1 tab PO BEDTIME RF: 0 insulin aspart U-100 [Novolog Flexpen U-100 Insulin] 100 unit/mL (3 mL) insulin pen 2 - 16 unit subcut TID RF: 0 Lantus Solostar U-100 Insulin 100 unit/mL (3 mL) insulin pen 15 unit subcut BEDTIME RF: 0 enoxaparin 100 mg/mL Syringe 100 mg SUBCUT Q12H RF: 0 cetirizine 10 mg Tablet 10 mg PO BEDTIME RF: 0 Trelegy Ellipta 200-62.5-25 mcg blister with device 1 inh inhalation DAILY 30 Days Qty: 1 RF: 6 Discharge Orders: Discharge Order (Routine); Ordered 11/10/21 Ordered By: Rodolfo Fairchild Diet: advance to usual diet Activity on Discharge: As tolerated Stand Alone Forms: Patient Portal Discharge page, Work/School Release Activity Restrictions/Additional Instructions: Take your medications as prescribed. , it is important that you take your medication to their entirety, do not skip any doses, do not finish them early. Follow-up with your primary care provider this week. Follow-up with your retail sales vitamin consultant. Return to the emergency department with new or worsening symptoms. Such as chest pain, shortness of breath, fevers, chills, nausea, vomiting, abdominal pain, headache, weakness. In case of emergency call 911 Care Plan Goals: Avoid rehospitalization for asthma and control of asthma Health Concerns: Asthma with frequent hospitalization history of blood clot Plan of Treatment: Use inhalers and take steroid as recommended and follow up with your lung doctor within a week Take coumadin and lovemox and monitor your INR at home and report to the coumadin clinic as usual, the goal of the INR to be 2 to3, then to stop using Lovenox injection -Follow up with your PCP Assessment: As above Patient Instructions: Asthma (ED)
--- NOTE | 2021-11-10 13:20 | MHC.CM.PN ---
PT TO DC HOME TODAY WITH NO SERVICES TO TRANSPORT
== END 2021-11-10 14:00 | disposition home or self-care (01) | DRG 202 ==
LOC: HO.ED 21:18 → HO.EDOVER 23:36
PROVIDERS: Physician Assistant; Admitting Provider Hospitalist; Emergency Provider Emergency Medicine; PCP Family Medicine; Visit Provider Internal Medicine
DX: J45.901 Unspecified asthma with (acute) exacerbation (principal); Z68.41 Body mass index [BMI] 40.0-44.9, adult; E66.01 Morbid (severe) obesity due to excess calories; K21.9 Gastro-esophageal reflux disease without esophagitis; G47.33 Obstructive sleep apnea (adult) (pediatric); I11.0 Hypertensive heart disease with heart failure; I50.9 Heart failure, unspecified; Z87.891 Personal history of nicotine dependence; I48.91 Unspecified atrial fibrillation; F41.9 Anxiety disorder, unspecified; Z86.711 Personal history of pulmonary embolism; Z86.718 Personal history of other venous thrombosis and embolism; Z20.822 Contact with and (suspected) exposure to COVID-19; Z86.16 Personal history of COVID-19; Z88.0 Allergy status to penicillin; Z88.2 Allergy status to sulfonamides; Z79.4 Long term (current) use of insulin; Z79.51 Long term (current) use of inhaled steroids; Z79.01 Long term (current) use of anticoagulants; Z79.899 Other long term (current) drug therapy
CPT/HCPCS: 36415; 71045; 80048; 80053; 82947; 83880; 84484; 85025; 85379; 85610; 85730; 87635; 93005; 94640; 94644; 96365; 96366; 96372; 96375; 99285; J1200; J1650; J1885; J2270; J2405; J2920; J2930; J3475; Q0163

== ENCOUNTER 2021-11-22 14:55 | Outpatient (REF) | payer MEDICARE, MEDICAID, SELFPAY ==
--- NOTE | 2021-11-22 17:29 | PFT_ITS ---
INDICATION: Dyspnea. SPIROMETRY: FEV1 to FVC 93% with an FEV1 of 1.87 L, which is 81% predicted; an FVC of 2.01 L, which is 68% predicted. No significant response to bronchodilators noted. Maximum voluntary ventilation 90% predicted. LUNG VOLUMES: Total lung capacity 77% with expiratory reserve volume of 6% predicted. DIFFUSION CAPACITY: DLCO 73% predicted. COMPARISONS: PFTs in 2019. INTERPRETATION: No obstructive ventilatory defect. No significant response to bronchodilators noted. Normal maximum voluntary ventilation. Lung volumes demonstrating a restrictive ventilatory defect consistent with mild restrictive lung disease. In addition to that, there is a mild diffusion impairment. When compared to 2019, there is no significant change in the FVC, a trend decrease in the FEV1, a significant improvement in the total lung capacity, and a significant improvement in the diffusion capacity. Clinical correlation warranted. MD PRANAY Mcgarry/MARY / [id number]
== END 2021-11-22 14:56 | disposition home or self-care (01) ==
LOC: HO.RESP 14:55
PROVIDERS: Visit Provider Internal Medicine Pulmonary Disease
DX: R06.00 Dyspnea, unspecified (principal); J45.909 Unspecified asthma, uncomplicated
CPT/HCPCS: 94060; 94727; 94729

== ENCOUNTER 2021-11-22 16:17 | Emergency (ER) | payer MEDICARE, MEDICAID, SELFPAY ==
--- NOTE | 2021-11-22 | ECG_ITS ---
Test Reason : palpitations Blood Pressure : / mmHG Vent. Rate : 107 BPM Atrial Rate : 107 BPM P-R Int : 154 ms QRS Dur : 068 ms QT Int : 352 ms P-R-T Axes : 037 -02 029 degrees QTc Int : 469 ms Sinus tachycardia Possible Left atrial enlargement Low voltage QRS Inferior infarct (cited on or before 08-NOV-2021) Cannot rule out Anterior infarct (cited on or before 08-NOV-2021) Abnormal ECG When compared with ECG of 08-NOV-2021 18:45, Questionable change in initial forces of Anterior leads Nonspecific T wave abnormality now evident in Anterior leads Referred By: Generic ED Physician Electronically Signed By:AUTUMN BALLARD
--- NOTE | ~2021-11-22 | CT_ITS ---
EXAMINATION: CT HEAD WITHOUT CONTRAST CLINICAL INFORMATION: Severe headache. COMPARISON: Head CT dated 12/13/2019. TECHNIQUE: Contiguous axial imaging was performed from the skull base to vertex without intravenous administration of contrast. This CT examination was performed using dose optimization techniques as appropriate, variously including the following: *Automated exposure control *Adjustment of mA and/or kV according to patient size (this includes techniques or standardized protocols for targeted exams where dose is matched to indication/reason for exam; i.e. extremities or head) *Use of iterative reconstruction technique DLP: 837 mGy-cm FINDINGS: There is no evidence of acute intracranial hemorrhage or territorial infarction. No abnormal mass effect or midline shift is seen. Ni to white matter differentiation is well preserved. No extra-axial fluid collections are identified. The ventricles are normal in size. There is no abnormal attenuation within the brain parenchyma. The osseous structures and soft tissues are normal. The mastoid air cells and visualized portions of the paranasal sinuses are well aerated. CT/CT head/brain wo con IMPRESSION: No acute intracranial pathology.
--- NOTE | ~2021-11-22 | CT_ITS ---
EXAMINATION: CTA OF THE HEAD AND NECK CLINICAL INFORMATION: Headache. Neck pain. COMPARISON: Head CT from 12/13/2019. TECHNIQUE: Test bolus sequences followed by intravenous administration 70 mL of Omnipaque 350. Helical imaging was performed in the axial plane from the mediastinum to the skull vertex. Delayed postcontrast imaging of the head was also performed. The data was processed at the manufacturing technologist's workstation for generation of MIP sequences. Three-dimensional volume rendered reformatted images were also generated at an offline 3-D workstation. Stenoses are assessed in accordance with NASCET criteria unless otherwise indicated. This CT examination was performed using dose optimization techniques as appropriate, variously including the following: *Automated exposure control *Adjustment of mA and/or kV according to patient size (this includes techniques or standardized protocols for targeted exams where dose is matched to indication/reason for exam; i.e. extremities or head) *Use of iterative reconstruction technique DLP: 1482 mGy-cm FINDINGS: CT HEAD: There is no evidence of acute intracranial hemorrhage or territorial infarction. There is no loss of pacheco to white matter differentiation. No abnormal mass effect or midline shift is seen. No extra-axial fluid collections are identified. There is no abnormal enhancement. The ventricles are normal in size. There is no abnormal attenuation within the brain parenchyma. The osseous structures and soft tissues are normal. The mastoid air cells and visualized portions of the paranasal sinuses are well aerated. CTA NECK: The imaged aortic arch and origins of the great vessels are normal. The common carotid arteries are widely patent. Retropharyngeal course of the common carotid arteries. The carotid bifurcations are normal. The cervical internal carotid arteries are normal. The vertebral arteries opacify normally and are of normal caliber. The soft tissues of the neck are unremarkable. Subsegmental atelectatic changes visible in the lungs. CTA HEAD: The intradural vertebral arteries and basilar artery are normal. The posterior cerebral arteries are widely patent. The internal carotid arteries are of normal caliber. The ALPHONSO and MCA vascular complexes bilaterally are normal. The venous sinuses opacify normally. CT/CT angio head neck IMPRESSION: Normal CT angiogram of the head and neck. No acute process. Imaging findings reported to Dr. Mi at 7:02 PM on 11/22/2021.
[2021-11-22 16:24] VITALS: BP 147/82; PULSE 105; RESP 20; TEMP 36.8; O2SAT 96; BMI 46.4
--- NOTE | 2021-11-22 16:42 | ED_ITS ---
HPI - General Adult General Chief complaint: General Medical Stated complaint: SOB Time Seen by Provider: 11/22/21 16:42 Source: patient Mode of arrival: ambulatory Limitations: no limitations History of Present Illness HPI narrative: 51 year old female past medical history of poorly controlled asthma/COPD, afib, recurrent DVT's and PEs (on lovenox and warfarin), CHF, depression/anxiety, obesity presents to the emergency department from pulmonology where she was brought to the emergency department for a near syncopal episode status post doing pulmonary function testing. Patient tells me that after doing pulmonary function testing she felt very lightheaded, dizzy, weak, she tells me that her provider there told her that her eyes rolled back and it looked like she was about to pass out. She tells me that after this happened she started experiencing a severe 10/10 headache to the front left aspect of her head and part of her left neck. She tells me she has never had headaches like this before. She also tells me that she is having palpitations. She tells me that at this time her dizziness has resolved and her main complaint is really her 10/10 headache. However, patient appears extremely anxious at this time. She denies chest pain, nausea, vomiting, abdominal pain, weakness, vision changes, photophobia. She denies trauma to the head. Onset (ago): hour(s) Location: head Radiation: non-radiation Severity: severe Severity scale (1-10): 10 Quality: stabbing Pain Consistency: constant Relieving factors: none Exacerbating factors: none Associated symptoms: denies other symptoms Treatments prior to arrival: none Related Data Home Medications Medication Instructions Recorded Confirmed montelukast 10 mg tablet 10 mg PO BEDTIME 09/03/20 11/09/21 trazodone 100 mg tablet 200 mg PO BEDTIME 09/03/20 11/09/21 risperidone 1 mg tablet 1 mg PO BEDTIME 05/13/21 11/09/21 (Risperdal) diltiazem HCl 120 mg 1 cap PO DAILY 07/09/21 11/09/21 capsule,extended release 24 hr escitalopram oxalate 20 mg tablet 40 mg PO DAILY 07/09/21 11/09/21 cetirizine 10 mg tablet 10 mg PO BEDTIME 11/09/21 11/09/21 enoxaparin 100 mg/mL subcutaneous 100 mg SUBCUT Q12H 11/09/21 11/09/21 syringe insulin aspart U-100 100 unit/mL 2 - 16 unit SUBCUT TID 11/09/21 11/09/21 (3 mL) subcutaneous pen (Novolog Flexpen U-100 Insulin aspart) insulin glargine 100 unit/mL (3 15 unit SUBCUT BEDTIME 11/09/21 11/09/21 mL) subcutaneous pen (Lantus Solostar U-100 Insulin) lorazepam 1 mg tablet (Ativan) 2 mg PO DAILY PRN 11/09/21 11/09/21 pantoprazole 40 mg tablet,delayed 1 tab PO BEDTIME 11/09/21 11/09/21 release warfarin 3 mg tablet 8 mg PO DAILY@1800 11/09/21 11/09/21 Previous Rx's Medication Instructions Recorded albuterol sulfate 90 mcg/actuation 2 puff INHALATION RQ4H PRN #6.7 g 05/17/21 aerosol inhaler (Ventolin HFA) fluticasone fur. 200 mcg-umeclid 1 inh INHALATION DAILY 30 Days #1 08/27/21 62.5 mcg-vilant 25 mcg ea inhalat.powder (Trelegy Ellipta) Allergies Allergy/AdvReac Type Severity Reaction Status Date / Time azithromycin Allergy Intermediate ITCHING Verified 08/27/21 15:17 [From ZITHROMAX Z-XANDER] amoxicillin Allergy Unknown UNKNOWN, Verified 08/27/21 15:17 [AMOXICILLIN] hives, swelling budesonide [From Allergy Unknown UNKNOWN Verified 08/27/21 15:17 SYMBICORT] cefpodoxime [From Allergy Unknown UNKNOWN Verified 08/27/21 15:17 VANTIN] cefuroxime [From Allergy Unknown UNKNOWN Verified 08/27/21 15:17 CEFTIN] Cephalosporins Allergy Unknown UNKNOWN Verified 08/27/21 15:17 [CEPHALOSPORINS] ciprofloxacin [From Allergy Unknown UNKNOWN Verified 08/27/21 15:17 CIPRO] diphtheria,pertussis Allergy Unknown Unknown Verified 08/27/21 15:17 (acellular),te [Adacel(Tdap Adolesn/Adult)(PF)] erythromycin base Allergy Unknown UNKNOWN Verified 08/27/21 15:17 [ERYTHROMYCIN BASE] fluticasone [Advair Allergy Unknown Unknown Verified 08/27/21 15:17 Diskus] formoterol [From Allergy Unknown UNKNOWN Verified 08/27/21 15:17 SYMBICORT] hydrocodone [From Allergy Unknown unknown Verified 08/27/21 15:17 VICODIN] Iodinated Contrast Allergy Unknown UNKNOWN Verified 08/27/21 15:17 Media [CONTRAST, IV] levofloxacin [From Allergy Unknown UNKNOWN Verified 08/27/21 15:17 LEVAQUIN] penicillin G Allergy Unknown Unknown Verified 08/27/21 15:17 penicillin V Allergy Unknown Unknown Verified 08/27/21 15:17 Penicillins Allergy Unknown UNKNOWN Verified 08/27/21 15:17 [PENICILLINS] salmeterol [Advair Allergy Unknown Unknown Verified 08/27/21 15:17 Diskus] sertraline [From Allergy Unknown SUICIDAL Verified 08/27/21 15:17 ZOLOFT] Sulfa (Sulfonamide Allergy Unknown hives Verified 08/27/21 15:17 Antibiotics) tetanus and Allergy Unknown UNKNOWN Verified 08/27/21 15:17 diphtheria toxoids [TETANUS & DIPHTHERIA TOXOIDS] Vantin Allergy Unknown Unknown Verified 08/27/21 15:17 methylprednisolone Allergy Eye Verified 11/09/21 23:53 [From Solu-Medrol] Swelling ketorolac [From AdvReac Mild ITCHING Verified 08/27/21 15:17 TORADOL] Ceftin Allergy Unknown Unknown Uncoded 03/06/21 20:19 IV dye Allergy Unknown Unknown Uncoded 03/06/21 20:19 Symbicort Allergy Unknown Unknown Uncoded 03/06/21 20:19 Tetanus Allergy Unknown Unknown Uncoded 03/06/21 20:19 Erythromycin Allergy Unknown Uncoded 03/06/21 20:19 Review of Systems Verdana 4l Review of Systems: Verdana 4d Verdana 4d Constitutional : No Weight loss, No Fever, No Chills, No Fatigue, No Malaise ENT/Mouth : No sore throat, No Rhinorrhea Eyes: No Eye Pain, No Swelling, No Redness Cardiovascular : No Chest Pain, No SOB, No Dyspnea on Exertion, No OrthopneaOrthopnea, No Edema, No Palpitations Respiratory : No Cough, No Sputum, No Wheezing Gastrointestinal : No Nausea, No Vomiting, No Diarrhea, No Constipation, No abdominal Pain, No Hematochezia, No Melena Genitourinary : No Dysuria, No Urinary Frequency, No Hematuria, Musculoskeletal : No joint pain, No Myalgias, No Joint Swelling Skin : No Skin Lesions, No rash Neuro : No Weakness, No Numbness, No Dizziness, No Headache Psych : No Anxiety/Panic, No Depression All other systems reviewed and are negative Yes all other systems are reviewed and are negative [facility] Past Medical History Attestation statement: The following information was validated with the patient. Source: old records reviewed and nursing notes reviewed Medical History Anxiety Asthma Atrial fibrillation CHF (congestive heart failure) Depression DVT (deep venous thrombosis) Hypertension Irritable bowel Morbid obesity Pulmonary embolism Surgical History H/O adenoidectomy History of hysterectomy History of tonsillectomy Hx of breast reduction, elective Social History Social History Household Members: Spouse and Children Household Members Other:: 3 Housing: House Housing Other:: duplex Do you presently have visiting nurse or other home services: No Alcohol intake: unknown Patient Tobacco Use Status: Former Tobacco user e-Cigarette/Vaping Use: Never Used Second Hand Smoke Exposure: No Substance Use Type: Marijuana Advance Directives: Yes Advance Directives on File: Yes Advance Directives Date on File: 09/06/20 Patient : No service: No Current occupational status: unemployed and disabled Sexual orientation: Straight/Heterosexual Physical Exam Verdana 4l Vital Signs: Verdana 4d Verdana 4d Vital Signs: Verdana 4d Verdana 4Bd Last Vital Signs Verdana 4d Research/Program Director New 4d Research/Program Director New 4d Temp 98.8 F 11/22/21 19:05 Research/Program Director New 4d Pulse 116 H 11/22/21 19:38 Research/Program Director New 4d Resp 18 11/22/21 19:21 BP 130/80 11/22/21 19:38 Pulse Ox 98 11/22/21 19:21 BMI result Body Mass Index 46.4 VSS, slightly tachycardic however patient is anxious. Appearance: Alert.? Oriented X3.? No acute distress.?+ patient appears anxious. Head: Normocephalic, atraumatic, no step-offs or deformities Eyes: Pupils equal, round and reactive to light.? ENT: Pharynx normal.? Neck: Normal inspection.? Neck supple.? CVS: +Rapid rate normal rhythm, likely sinus tachycardia. .? Pulses normal.? Respiratory: No respiratory distress.? Breath sounds normal.? Abdomen: Soft and nontender.? Skin: Skin warm and dry.? Normal skin color.? Normal skin turgor.? Extremities: No lower extremity edema. No calf ttp, negative Herman sign bilaterally. 5/5 strength to bilateral upper and lower extremities Back: No midline tenderness, no C-spine tenderness, full range of motion, no CVA tenderness bilaterally Neuro: Oriented X 3.? No motor deficit.? No sensory deficit. Course Reevaluation(s) Reevaluation #1: CBC appears to be at patient's baseline, no acute findings. No acute electrolyte abnormalities. Patient is COVID negative. D-dimer negative. Time: 19:21 Reevaluation #2: [facility] called and reported normal CT to Dr. Mi. CT of head normal. Patient still reports severe headache, will give morphine for pain. Orthostatic vitals pending. Time: 19:27 Reevaluation #3: Discussed INR w/ Dr. Mi, suggest having her hold next dose of Warfarin, and following up with her PCP. Time: 19:32 Additional Reevaluation(s): 2006 Orthostatics negative Medical Decision Making [facility] Narrative Medical decision making narrative: [age] yo f pmhx poorly controlled asthma/COPD, afib, recurrent DVT's and PEs (on lovenox and warfarin), CHF, depression/anxiety, obesity presents to ED from pulmonology where she was brought to the emergency department for a near syncopal episode status post doing pulmonary function testing with complaints of severe frontal left sided headache and neck pain. PE benign, neuro nonfocal. Normal [id number], [id number], normal tandem gait, unlikely cerebellar infarct/posterior stroke. Plan at this time is to obtain basic labs, BNP, COVID, D-dimer, Mag, troponin, UA, urine . Based off patient's history and physical exam I will obtain a CT angiogram of head and neck to rule out clot. Medical Records Medical records reviewed: Yes I reviewed the patient's medical records. Lab Data Lab results reviewed: Yes I reviewed the patient's lab results. Result diagrams: 11/22/21 17:01 11/22/21 17:01 Labs: Lab Results 11/22/21 11/22/21 11/22/21 Range/Units 17:01 17:01 17:01 WBC 5.5 (4.8-10.8) X10*3/uL RBC 3.17 L (4.20-5.50) X10*6/uL Hgb 9.0 L (12.0-16.0) g/dl Hct 27.9 L (37.0-47.0) % MCV 88.0 (80.0-98.0) fL MCH 28.4 (27.0-33.0) pg MCHC 32.3 (31.0-35.0) g/dl RDW 15.9 (11.0-16.0) % Plt Count 234 D (160-400) X10*3/uL MPV 10.1 (9.4-12.3) fL Immature Gran % (Auto) 0.7 H (0.0-0.4) % Neut % (Auto) 59.8 (45-73) % Lymph % (Auto) 26.6 (20-40) % [place] % (Auto) 9.4 (2-11) % Eos % (Auto) 3.1 (0-4) % Baso % (Auto) 0.4 (0-2) % Lymph # (Auto) 1.5 (1.2-4.9) X10*3/uL [place] # (Auto) 0.5 (0.1-1.2) X10*3/uL Eos # (Auto) 0.2 (0.0-0.4) X10*3/uL Baso # (Auto) 0.0 (0.0-0.2) X10*3/uL Abs Immat Gran (auto) 0.04 H (0.00-0.03) X10*3/uL Absolute Neuts (auto) 3.3 (2.0-8.3) x10*3/uL Absolute Nucleated RBC 0.000 (0.0-0.012) X10*3/uL Nucleated RBC % (auto) 0.0 (0.0-0.2) /100WBC PT 37.4 H (9.9-13.0) SEC INR 3.2 H (0.9-1.1) D-Dimer High Sensitivty < 150 NG/ML Sodium 140 (135-145) mmol/L Potassium 3.4 D (3.3-5.1) mmol/L Chloride 108 (96-108) mmol/L Carbon Dioxide 22 (22-29) mmol/L Anion Gap 13 (12-20) BUN 6 L (9-16) mg/dL Creatinine 0.79 (0.5-1.4) mg/dL Estim Creat Clear Calc 88.9 Estimated GFR > 60 POC Glucose (60-115) mg/dL Random Glucose 151 H (60-115) mg/dL Calcium 9.1 D (8.4-10.2) mg/dL Magnesium 2.3 (1.6-2.6) mg/dL Total Bilirubin 0.3 (0.0-1.0) mg/dL AST 13 (5-31) U/L ALT 21 (0-31) U/L Alkaline Phosphatase 69 (39-117) U/L Troponin I High Sens (<3.5-17.0) ng/L B-Natriuretic Peptide (<100) pg/mL Total Protein 5.9 L (6.5-8.0) g/dL Albumin 3.8 (3.5-5.0) g/dL Urine Color Urine Appearance Urine pH (5.0-8.0) Ur Specific Basile (1.005-1.025) Urine Protein (NEG-TRACE) MG/DL Urine Glucose (UA) (NEG) MG/DL Urine Ketones (NEG) MG/DL Urine Blood (NEG) Urine Nitrite (NEG) Ur Leukocyte Esterase (NEG) Urine Test (NEGATIVE) COVID-19 (ELYSE) (Negative) COVID-19 Clin Com 11/22/21 11/22/21 11/22/21 Range/Units 17:01 17:01 19:46 WBC (4.8-10.8) X10*3/uL RBC (4.20-5.50) X10*6/uL Hgb (12.0-16.0) g/dl Hct (37.0-47.0) % MCV (80.0-98.0) fL MCH (27.0-33.0) pg MCHC (31.0-35.0) g/dl RDW (11.0-16.0) % Plt Count (160-400) X10*3/uL MPV (9.4-12.3) fL Immature Gran % (Auto) (0.0-0.4) % Neut % (Auto) (45-73) % Lymph % (Auto) (20-40) % [place] % (Auto) (2-11) % Eos % (Auto) (0-4) % Baso % (Auto) (0-2) % Lymph # (Auto) (1.2-4.9) X10*3/uL [place] # (Auto) (0.1-1.2) X10*3/uL Eos # (Auto) (0.0-0.4) X10*3/uL Baso # (Auto) (0.0-0.2) X10*3/uL Abs Immat Gran (auto) (0.00-0.03) X10*3/uL Absolute Neuts (auto) (2.0-8.3) x10*3/uL Absolute Nucleated RBC (0.0-0.012) X10*3/uL Nucleated RBC % (auto) (0.0-0.2) /100WBC PT (9.9-13.0) SEC INR (0.9-1.1) D-Dimer High Sensitivty NG/ML Sodium (135-145) mmol/L Potassium (3.3-5.1) mmol/L Chloride (96-108) mmol/L Carbon Dioxide (22-29) mmol/L Anion Gap (12-20) BUN (9-16) mg/dL Creatinine (0.5-1.4) mg/dL Estim Creat Clear Calc Estimated GFR POC Glucose 113 (60-115) mg/dL Random Glucose (60-115) mg/dL Calcium (8.4-10.2) mg/dL Magnesium (1.6-2.6) mg/dL Total Bilirubin (0.0-1.0) mg/dL AST (5-31) U/L ALT (0-31) U/L Alkaline Phosphatase (39-117) U/L Troponin I High Sens < 3.5 (<3.5-17.0) ng/L B-Natriuretic Peptide 13 (<100) pg/mL Total Protein (6.5-8.0) g/dL Albumin (3.5-5.0) g/dL Urine Color Urine Appearance Urine pH (5.0-8.0) Ur Specific Basile (1.005-1.025) Urine Protein (NEG-TRACE) MG/DL Urine Glucose (UA) (NEG) MG/DL Urine Ketones (NEG) MG/DL Urine Blood (NEG) Urine Nitrite (NEG) Ur Leukocyte Esterase (NEG) Urine Test (NEGATIVE) COVID-19 (ELYSE) Negative (Negative) COVID-19 Clin Com See Note 11/22/21 11/22/21 Range/Units 19:49 19:49 WBC (4.8-10.8) X10*3/uL RBC (4.20-5.50) X10*6/uL Hgb (12.0-16.0) g/dl Hct (37.0-47.0) % MCV (80.0-98.0) fL MCH (27.0-33.0) pg MCHC (31.0-35.0) g/dl RDW (11.0-16.0) % Plt Count (160-400) X10*3/uL MPV (9.4-12.3) fL Immature Gran % (Auto) (0.0-0.4) % Neut % (Auto) (45-73) % Lymph % (Auto) (20-40) % [place] % (Auto) (2-11) % Eos % (Auto) (0-4) % Baso % (Auto) (0-2) % Lymph # (Auto) (1.2-4.9) X10*3/uL [place] # (Auto) (0.1-1.2) X10*3/uL Eos # (Auto) (0.0-0.4) X10*3/uL Baso # (Auto) (0.0-0.2) X10*3/uL Abs Immat Gran (auto) (0.00-0.03) X10*3/uL Absolute Neuts (auto) (2.0-8.3) x10*3/uL Absolute Nucleated RBC (0.0-0.012) X10*3/uL Nucleated RBC % (auto) (0.0-0.2) /100WBC PT (9.9-13.0) SEC INR (0.9-1.1) D-Dimer High Sensitivty NG/ML Sodium (135-145) mmol/L Potassium (3.3-5.1) mmol/L Chloride (96-108) mmol/L Carbon Dioxide (22-29) mmol/L Anion Gap (12-20) BUN (9-16) mg/dL Creatinine (0.5-1.4) mg/dL Estim Creat Clear Calc Estimated GFR POC Glucose (60-115) mg/dL Random Glucose (60-115) mg/dL Calcium (8.4-10.2) mg/dL Magnesium (1.6-2.6) mg/dL Total Bilirubin (0.0-1.0) mg/dL AST (5-31) U/L ALT (0-31) U/L Alkaline Phosphatase (39-117) U/L Troponin I High Sens (<3.5-17.0) ng/L B-Natriuretic Peptide (<100) pg/mL Total Protein (6.5-8.0) g/dL Albumin (3.5-5.0) g/dL Urine Color YELLOW Urine Appearance CLEAR Urine pH 6.0 (5.0-8.0) Ur Specific Basile <= 1.005 (1.005-1.025) Urine Protein NEG (NEG-TRACE) MG/DL Urine Glucose (UA) 100 H (NEG) MG/DL Urine Ketones NEG (NEG) MG/DL Urine Blood NEG (NEG) Urine Nitrite NEG (NEG) Ur Leukocyte Esterase NEG (NEG) Urine Test NEGATIVE (NEGATIVE) COVID-19 (ELYSE) (Negative) COVID-19 Clin Com Imaging Data CTA head and neck : Attestation: I personally reviewed and interpreted this imaging study as follows: Radiologist's impression: CT/CT angio head neck IMPRESSION: Normal CT angiogram of the head and neck. No acute process. ? Imaging findings reported to Dr. Mi at 7:02 PM on 11/22/2021. Critical Care Time Critical Care Time Critical Care Time: No Discharge Plan Discharge Clinical Impression: Acute migraine Patient Disposition: Home, Self-Care Instructions: Migraine Headache (ED) Additional Instructions: Take your medications as prescribed. If you were prescribed antibiotics today, it is important that you take your medication to their entirety, do not skip any doses, do not finish them early. Follow-up with your primary care provider this week. Return to the emergency department with new or worsening symptoms. Such as chest pain, shortness of breath, nausea, vomiting, abdominal pain. In case of emergency call 911 Your INR today was 3.2 please hold your next dose of Warfarin and follow up with PCP or hematology tomorrow. CTA of head and neck normal. Prescriptions: No Action risperidone [Risperdal] 1 mg Tablet 1 mg PO BEDTIME 0RF albuterol sulfate [Ventolin HFA] 90 mcg/actuation Hfa Aerosol Inhaler 2 puff inhalation RQ4H PRN (Reason: Shortness Of Breath) Qty: 6.7 0RF montelukast 10 mg Tablet 10 mg PO BEDTIME 0RF trazodone 100 mg Tablet 200 mg PO BEDTIME 0RF diltiazem HCl 120 mg capsule,extended release 24hr 1 cap PO DAILY 0RF escitalopram oxalate 20 mg tablet 40 mg PO DAILY 0RF Label Comments: Unsure of dosage Rx Instructions: patient states she was recently increased to 40 mg /day lorazepam [Ativan] 1 mg tablet 2 mg PO DAILY PRN (Reason: anxiety) 0RF warfarin 3 mg tablet 8 mg PO DAILY@1800 0RF Rx Instructions: patient was supposed to increase to 8 mg daily, but last dose she actually had was for 5 mg on 11/07/21 pantoprazole 40 mg tablet,delayed release (DR/EC) 1 tab PO BEDTIME 0RF insulin aspart U-100 [Novolog Flexpen U-100 Insulin] 100 unit/mL (3 mL) insulin pen 2 - 16 unit subcut TID 0RF Rx Instructions: per sliding scale Lantus Solostar U-100 Insulin 100 unit/mL (3 mL) insulin pen 15 unit subcut BEDTIME 0RF enoxaparin 100 mg/mL Syringe 100 mg SUBCUT Q12H 0RF cetirizine 10 mg Tablet 10 mg PO BEDTIME 0RF Trelegy Ellipta 200-62.5-25 mcg blister with device 1 inh inhalation DAILY 30 Days Qty: 1 6RF Referrals: Physician,Unknown J [Primary Care Provider] - 1 day (Follow up with your PCP or Rv Mechanic tomorrow. ) Stand Alone Forms: Work/School Release
[2021-11-22 17:05] LABS: MANUAL DIFF FLAG NO
[2021-11-22 17:07] LABS: Basophils Percent Auto 0.4 % (0-2); Eosinophils Absolute Auto 0.2 X10*3/uL (0.0-0.4); Eosinophils Percent Auto 3.1 % (0-4); Hematocrit 27.9 % (37.0-47.0); Imm Gran Abs Auto 0.04 X10*3/uL (0.00-0.03); Imm Gran Pct Auto 0.7 % (0.0-0.4); Lymphocytes Absolute Auto 1.5 X10*3/uL (1.2-4.9); Lymphocytes Percent Auto 26.6 % (20-40); Mean Corpuscular HGB Conc 32.3 g/dl (31.0-35.0); Mean Corpuscular Hemoglobin 28.4 pg (27.0-33.0); Mean Platelet Volume 10.1 fL (9.4-12.3); Monocytes Absolute Auto 0.5 X10*3/uL (0.1-1.2); Monocytes Percent Auto 9.4 % (2-11); Neutrophils Absolute Auto 3.3 x10*3/uL (2.0-8.3); Neutrophils Percent Auto 59.8 % (45-73); Platelet Count 234 X10*3/uL (160-400); Red Blood Count 3.17 X10*6/uL (4.20-5.50); Red Cell Distribution Width 15.9 % (11.0-16.0); White Blood Count 5.5 X10*3/uL (4.8-10.8)
[2021-11-22 17:23] LABS: D Dimer High Sensitivity < 150 NG/ML
[2021-11-22 17:30] LABS: B Type Natriuretic Peptide 13 pg/mL (<100); COVID-19 Test Negative (Negative); Troponin-I High Sensitivity < 3.5 ng/L (<3.5-17.0)
[2021-11-22 17:59] LABS: Alanine Aminotransferase 21 U/L (0-31); Albumin Level 3.8 g/dL (3.5-5.0); Alkaline Phosphatase 69 U/L (39-117); Anion Gap 13 (12-20); Aspartate Amino Transferase 13 U/L (5-31); Bilirubin Total 0.3 mg/dL (0.0-1.0); Blood Urea Nitrogen 6 mg/dL (9-16); Calcium 9.1 mg/dL (8.4-10.2); Carbon Dioxide 22 mmol/L (22-29); Chloride 108 mmol/L (96-108); Creatinine Clr Calc Pharmacy 88.9; Estimated Glomerular Filt Rate > 60; Glucose Random 151 mg/dL (60-115); Magnesium 2.3 mg/dL (1.6-2.6); Potassium 3.4 mmol/L (3.3-5.1); Sodium 140 mmol/L (135-145); Total Protein 5.9 g/dL (6.5-8.0)
[2021-11-22] MEDS: Metoclopramide HCl 10 MG/2 ML VIAL IVPUSH (18:11)
[2021-11-22] MEDS: diphenhydrAMINE HCL 50 MG/ML VIAL IVPUSH (18:11)
[2021-11-22] MEDS: Acetaminophen 325 MG TABLET 650 MG PO (18:11)
[2021-11-22] MEDS: iohexoL 350 MG/ML 100 ML INFUS..BTL IV (18:40)
[2021-11-22 19:05] VITALS: BP 142/66; PULSE 105; RESP 17; TEMP 37.1; O2SAT 98
[2021-11-22 19:21] VITALS: BP 109/76; PULSE 101; RESP 18; O2SAT 98
[2021-11-22 19:27] LABS: INTERNATIONAL NORM RATIO 3.2 (0.9-1.1); Prothrombin Time 37.4 SEC (9.9-13.0)
[2021-11-22 19:37] VITALS: BP 112/63; BP 124/73; PULSE 106; PULSE 110
[2021-11-22 19:38] VITALS: BP 130/80; PULSE 116
[2021-11-22] MEDS: Morphine Sulfate 4 MG/ML CARTRIDGE IVPUSH (19:45)
[2021-11-22 19:50] LABS: Glucose, Whole Blood 113 mg/dL (60-115)
[2021-11-22 19:55] LABS: Appearance Urine CLEAR; Color Urine YELLOW; Glucose Urine UA 100 MG/DL (NEG); Leukocyte Esterase Urine NEG (NEG); Nitrite Urine NEG (NEG); Specific Gravity - Urine <= 1.005 (1.005-1.025); Urine Blood NEG (NEG); Urine Ketones NEG (NEG); Urine Protein NEG (NEG-TRACE)
[2021-11-22 19:58] LABS: UPreg QC Valid YES; Urine Pregnancy NEGATIVE (NEGATIVE)
[2021-11-22 20:22] VITALS: BP 137/70; PULSE 102; RESP 16; O2SAT 96
== END 2021-11-22 20:30 | disposition home or self-care (01) ==
PROVIDERS: Physician Assistant; Emergency Provider Student in an Organized Health Care Education/Training Program
DX: G43.909 Migraine, unspecified, not intractable, without status migrainosus (principal); R06.02 Shortness of breath; F41.9 Anxiety disorder, unspecified; Z20.822 Contact with and (suspected) exposure to COVID-19; I48.91 Unspecified atrial fibrillation; Z79.01 Long term (current) use of anticoagulants; Z86.718 Personal history of other venous thrombosis and embolism; Z86.711 Personal history of pulmonary embolism
CPT/HCPCS: 36415; 70450; 70496; 70498; 80053; 81003; 81025; 82947; 83735; 83880; 84484; 85025; 85379; 85610; 87635; 93005; 96374; 96375; 99284; J1200; J2270; J2765; Q9967

== ENCOUNTER → 2021-12-04 14:55 | Outpatient (BNVA) | payer MEDICARE, MEDICAID, SELFPAY | PROVIDERS: PCP Nurse Practitioner Family; Visit Provider Internal Medicine Pulmonary Disease | DX: J45.51 Severe persistent asthma with (acute) exacerbation (principal) | CPT/HCPCS: 99212 ==

== ENCOUNTER 2021-12-04 15:42 | Emergency (ER) | payer MEDICARE, MEDICAID, SELFPAY ==
--- NOTE | ~2021-12-04 | XR_ITS ---
EXAMINATION: XR CHEST CLINICAL INFORMATION: Shortness of breath COMPARISON: 11/08/2021 TECHNIQUE: 2 views of the chest were obtained. FINDINGS: Left chest wall port is present with its tip in good position in the proximal right atrium. No significant abnormality is noted involving the heart, lungs, mediastinum, bony thorax or soft tissues. XR/XR chest 2V IMPRESSION: No acute intrathoracic disease.
[2021-12-04 15:50] VITALS: BP 106/87; PULSE 145; RESP 32; TEMP 37; O2SAT 98; BMI 46.4
--- NOTE | 2021-12-04 15:57 | ECG_ITS ---
Test Reason : SOB Blood Pressure : / mmHG Vent. Rate : 134 BPM Atrial Rate : 134 BPM P-R Int : 138 ms QRS Dur : 070 ms QT Int : 284 ms P-R-T Axes : 045 -32 034 degrees QTc Int : 424 ms Sinus tachycardia Left axis deviation Inferior infarct (cited on or before 08-NOV-2021) Anterior infarct (cited on or before 08-NOV-2021) Abnormal ECG When compared with ECG of 22-NOV-2021 16:33, Nonspecific T wave abnormality no longer evident in Anterior leads Referred By: Generic ED Physician Electronically Signed By:LITTLE ROONEY MD
[2021-12-04 18:00] VITALS: BP 141/111; PULSE 136; RESP 20; TEMP 36.9; O2SAT 97
--- NOTE | 2021-12-04 18:03 | ED_ITS ---
HPI - SOB/Dyspnea General Chief Complaint: Dyspnea Stated Complaint: sent down Time Seen by Provider: 12/04/21 17:56 Source: patient Mode of arrival: ambulatory Limitations: no limitations History of Present Illness HPI Narrative: Patient is a 51 year old female presenting to the emergency department today with shortness of breath. Patient states that she has an extensive history of shortness of breath secondary to asthma. 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 Patient states that she has to have Benadryl with solu-medrol due to a rash she develops. Patient denies any dizziness, lightheadedness, abdominal pain, nausea, vomiting, fever, chills, blurry vision, double vision, loss of vision, chest pain, back pain, night sweats, pain with urination, increased urinary frequency, increased urinary urgency, blood in her urine or stool, syncope or a near syncopal episode, recent trauma or falls, bowel incontinence, bladder in continence, bowel retention, bladder retention, or any other complaints at this time. Patient states that she has a history of COPD, asthma, PEs and DVTs. Patient is presently on Warfarin and Lovenox. MD elicited complaint: shortness of breath Pertinent past history: asthma Onset (ago): day(s) Relieving factors: medication Known history of: asthma Associated symptoms: denies other symptoms Related Data Home Medications Medication Instructions Recorded Confirmed montelukast 10 mg tablet 10 mg PO BEDTIME 09/03/20 11/09/21 trazodone 100 mg tablet 200 mg PO BEDTIME 09/03/20 11/09/21 risperidone 1 mg tablet (Risperdal) 1 mg PO BEDTIME 05/13/21 11/09/21 diltiazem HCl 120 mg 1 cap PO DAILY 07/09/21 11/09/21 capsule,extended release 24 hr escitalopram oxalate 20 mg tablet 40 mg PO DAILY 07/09/21 11/09/21 cetirizine 10 mg tablet 10 mg PO BEDTIME 11/09/21 11/09/21 enoxaparin 100 mg/mL subcutaneous 100 mg SUBCUT Q12H 11/09/21 11/09/21 syringe insulin aspart U-100 100 unit/mL 2 - 16 unit SUBCUT TID 11/09/21 11/09/21 (3 mL) subcutaneous pen (Novolog Flexpen U-100 Insulin aspart) insulin glargine 100 unit/mL (3 15 unit SUBCUT BEDTIME 11/09/21 11/09/21 mL) subcutaneous pen (Lantus Solostar U-100 Insulin) lorazepam 1 mg tablet (Ativan) 2 mg PO DAILY PRN 11/09/21 11/09/21 pantoprazole 40 mg tablet,delayed 1 tab PO BEDTIME 11/09/21 11/09/21 release warfarin 3 mg tablet 8 mg PO DAILY@1800 11/09/21 11/09/21 Previous Rx's Medication Instructions Recorded albuterol sulfate 90 mcg/actuation 2 puff INHALATION RQ4H PRN #6.7 g 05/17/21 aerosol inhaler (Ventolin HFA) fluticasone fur. 200 mcg-umeclid 1 inh INHALATION DAILY 30 Days #1 08/27/21 62.5 mcg-vilant 25 mcg ea inhalat.powder (Trelegy Ellipta) Allergies Allergy/AdvReac Type Severity Reaction Status Date / Time azithromycin Allergy Intermediate ITCHING Verified 12/04/21 15:50 [From ZITHROMAX Z-XANDER] amoxicillin [AMOXICILLIN] Allergy Unknown UNKNOWN, Verified 12/04/21 15:50 hives, swelling budesonide [From SYMBICORT] Allergy Unknown UNKNOWN Verified 12/04/21 15:50 cefpodoxime [From VANTIN] Allergy Unknown UNKNOWN Verified 12/04/21 15:50 cefuroxime [From CEFTIN] Allergy Unknown UNKNOWN Verified 12/04/21 15:50 Cephalosporins Allergy Unknown UNKNOWN Verified 12/04/21 15:50 [CEPHALOSPORINS] ciprofloxacin [From CIPRO] Allergy Unknown UNKNOWN Verified 12/04/21 15:50 diphtheria,pertussis Allergy Unknown Unknown Verified 12/04/21 15:50 (acellular),te [Adacel(Tdap Adolesn/Adult)(PF)] erythromycin base Allergy Unknown UNKNOWN Verified 12/04/21 15:50 [ERYTHROMYCIN BASE] fluticasone [Advair Diskus] Allergy Unknown Unknown Verified 12/04/21 15:50 formoterol [From SYMBICORT] Allergy Unknown UNKNOWN Verified 12/04/21 15:50 hydrocodone [From VICODIN] Allergy Unknown unknown Verified 12/04/21 15:50 Iodinated Contrast Media Allergy Unknown UNKNOWN Verified 12/04/21 15:50 [CONTRAST, IV] levofloxacin [From LEVAQUIN] Allergy Unknown UNKNOWN Verified 12/04/21 15:50 penicillin G Allergy Unknown Unknown Verified 12/04/21 15:50 penicillin V Allergy Unknown Unknown Verified 12/04/21 15:50 Penicillins [PENICILLINS] Allergy Unknown UNKNOWN Verified 12/04/21 15:50 salmeterol [Advair Diskus] Allergy Unknown Unknown Verified 12/04/21 15:50 sertraline [From ZOLOFT] Allergy Unknown SUICIDAL Verified 12/04/21 15:50 Sulfa (Sulfonamide Allergy Unknown hives Verified 12/04/21 15:50 Antibiotics) tetanus and diphtheria Allergy Unknown UNKNOWN Verified 12/04/21 15:50 toxoids [TETANUS & DIPHTHERIA TOXOIDS] Vantin Allergy Unknown Unknown Verified 12/04/21 15:50 methylprednisolone Allergy Eye Verified 12/04/21 15:50 [From Solu-Medrol] Swelling ketorolac [From TORADOL] AdvReac Mild ITCHING Verified 12/04/21 15:50 Ceftin Allergy Unknown Unknown Uncoded 03/06/21 20:19 IV dye Allergy Unknown Unknown Uncoded 03/06/21 20:19 Symbicort Allergy Unknown Unknown Uncoded 03/06/21 20:19 Tetanus Allergy Unknown Unknown Uncoded 03/06/21 20:19 Erythromycin Allergy Unknown Uncoded 03/06/21 20:19 Review of Systems Constitutional: Constitutional: Reports no additional constitutional complaints, Denies chills, Denies fever(s) and Denies night sweats Eyes: Eyes: Reports no additional eye complaints, Denies blurry vision, Denies change in vision, Denies diplopia, Denies eye discharge, Denies loss of vision and Denies eye pain ENT: Denies dizziness Cardiovascular: Cardiovascular: Reports no additional cardiovascular complaints, Denies chest pain, Denies lightheadedness, Denies Loss of Consciousness and Reports dyspnea Respiratory: Respiratory: Reports no additional respiratory complaints and Reports dyspnea Gastrointestinal: Gastrointestinal: Reports no additional gastrointestinal complaints, Denies abdominal pain, Denies melena, Denies hematochezia, Denies change in bowel habits and Denies change in stool character Genitourinary: Genitourinary: Denies hematuria, Denies urinary frequency, Denies dysuria, Denies urinary incontinence, Denies urinary hesitancy and Denies urinary urgency Musculoskeletal: Musculoskeletal: Reports no additional musculoskeletal complaints, Denies numbness and Denies tingling Neurologic: Denies dizziness, Denies loss of vision, Denies numbness and D enies tingling Psychiatric: Psychiatric: Reports no additional psychiatric complaints Endocrine: Endocrine: Reports no additional endocrine complaints Hematologic/Lymphatic: Hematologic/Lymphatic: Reports no additional hematologic/lymphatic complaints Allergic/Immunologic: Allergic/Immunologic: Reports no additional allergic/immunologic complaints PMFSH Past Medical History Attestation statement: The following information was validated with the patient. Source: old records reviewed Medical History Anxiety Anxiety Asthma Atrial fibrillation CHF (congestive heart failure) Depression DVT (deep venous thrombosis) Hypertension Irritable bowel Morbid obesity Pulmonary embolism Surgical History H/O adenoidectomy History of hysterectomy History of tonsillectomy Hx of breast reduction, elective Social History Social History Household Members: Spouse and Children Household Members Other:: 3 Housing: House Housing Other:: duplex Do you presently have visiting nurse or other home services: No Alcohol intake: unknown Patient Tobacco Use Status: Former Tobacco user e-Cigarette/Vaping Use: Never Used Second Hand Smoke Exposure: No Substance Use Type: Marijuana Advance Directives: Yes Advance Directives on File: Yes Advance Directives Date on File: 09/06/20 service: No Current occupational status: unemployed and disabled Sexual orientation: Straight/Heterosexual Physical Exam Vital Signs: Vital Signs: Last Vital Signs Temp 98.4 F 12/04/21 18:00 Pulse 123 H 12/04/21 20:21 Resp 24 H 12/04/21 20:21 BP 156/72 H 12/04/21 20:21 Pulse Ox 97 12/04/21 20:21 BMI result Body Mass Index 46.4 Const: General: cooperative, no acute distress, alert and awake Nutritional Appearance: well nourished Orientation/consciousness: patient oriented x3 Limitations: no limitations HENMT: Head: Yes normal to inspection and Yes atraumatic Ears: hearing grossly normal bilaterally and external ears normal General nose exam: Normal external nose present, no nasal discharge noted and no epistaxis Face and sinus: Yes normal facial exam, No abrasion and No laceration Mouth: Normal oral and palatal mucosa present, no drooling and no muffled voice Eyes: General: appearance normal, both eyes and all related structures Periorbital: periorbital findings normal Eyelids: Yes eyelids normal Conjunctivae: conjunctivae normal Pupils: Equal, round and reactive pupils present EOM: EOMs intact bilaterally Neck: Neck: Yes normal visual inspection, Yes full ROM and Yes no lymphadenopathy Chest: Chest palpation & inspection: normal inspection of the chest Resp: Effort & Inspection: normal respiratory effort, able to speak in complete sentences and audible wheezes (from upper airway - forced sounding) Cardio: Rate: regular rate Rhythm: regular rhythm GI: Inspection: Yes normal to inspection Neuro: General: patient oriented x3 and moves all extremities Cranial nerves: Yes Equal, round and reactive pupils present Cognition (Neuro): normal cognition Motor exam (neuro): 5/5 motor strength present throughout Sensory Exam: Normal double simultaneous stimulation for sensation Coordination: [id number] test normal Extrem: General: Yes normal to inspection, Yes full ROM and Yes capillary refill normal Psych: Appearance: grossly normal Mental Status: mental status grossly normal Affect: normal affect Attitude: cooperative Thought process: Normal thought process present Thought content: Normal thought content present Insight: Good insight present (Psych) MDM - SOB/Dyspnea MDM Narrative Medical decision making narrative: Patient is a 51 year old female presenting to the emergency department today with shortness of breath. Patient's physical exam showed audible wheezing however, this wheezing was obviously forced from the patient and sounded completely superior to her lungs. This breathing is most consistent with anxiety and not an acute respiratory process. Patient's blood work was the same as her multiple previous. Patient's EKG was unremarkable. Patient's chest x-ray showed no acute process. I explained my physical exam findings as well as all test results to the patient. I answered all questions asked by the patient. Patient received IM Benadryl and Solu-medrol which she stated helped her symptoms significantly. I stressed the importance of the patient taking her medication as prescribed. I stressed the importance of the patient following up with her primary care provider. I stressed the importance of the patient returning to the emergency department immediately if her symptoms were to worsen or if she were to develop any dizziness, shortness of breath, difficulty breathing, chest pain, blurry vision, loss of vision, nausea, vomiting, abdominal pain, fever, chills, back pain, or any other complaints. Patient verbalized agreement and understanding with this treatment plan and discharge. Differential Diagnosis Differential diagnosis: Likely acute exacerbation of chronic obstructive airways disease and asthma with exacerbation Medical Records Attestation: I reviewed the patient's medical records. Lab Data Attestation: I reviewed the patient's lab results. Result diagrams: 12/04/21 21:18 12/04/21 21:18 Labs: Lab Results 12/04/21 12/04/21 12/04/21 Range/Units 21:18 21:18 21:22 WBC 7.4 (4.8-10.8) X10*3/uL RBC 3.38 L (4.20-5.50) X10*6/uL Hgb 9.2 L (12.0-16.0) g/dl Hct 29.4 L (37.0-47.0) % MCV 87.0 (80.0-98.0) fL MCH 27.2 (27.0-33.0) pg MCHC 31.3 (31.0-35.0) g/dl RDW 15.8 (11.0-16.0) % Plt Count 230 (160-400) X10*3/uL MPV 11.0 (9.4-12.3) fL Immature Gran % (Auto) 0.7 H (0.0-0.4) % Neut % (Auto) 71.0 (45-73) % Lymph % (Auto) 18.0 L (20-40) % Ransom % (Auto) 8.5 (2-11) % Eos % (Auto) 1.4 (0-4) % Baso % (Auto) 0.4 (0-2) % Lymph # (Auto) 1.3 (1.2-4.9) X10*3/uL Ransom # (Auto) 0.6 (0.1-1.2) X10*3/uL Eos # (Auto) 0.1 (0.0-0.4) X10*3/uL Baso # (Auto) 0.0 (0.0-0.2) X10*3/uL Abs Immat Gran (auto) 0.05 H (0.00-0.03) X10*3/uL Absolute Neuts (auto) 5.3 (2.0-8.3) x10*3/uL Absolute Nucleated RBC 0.000 (0.0-0.012) X10*3/uL Nucleated RBC % (auto) 0.0 (0.0-0.2) /100WBC VBG pH 7.47 H (7.32-7.43) VBG pCO2 31 mmHg VBG pO2 34 mmHg VBG HCO3 23 (22-26) mmol/L VBG O2 Saturation 53.0 % VBG Base Excess 0.6 mmol/L Sodium 140 (135-145) mmol/L Potassium 3.9 (3.3-5.1) mmol/L Chloride 108 (96-108) mmol/L Carbon Dioxide 23 (22-29) mmol/L Anion Gap 13 (12-20) BUN 15 D (9-16) mg/dL Creatinine 0.82 (0.5-1.4) mg/dL Estim Creat Clear Calc 85.7 Estimated GFR > 60 Fasting Glucose 183 H (60-99) mg/dL Calcium 9.1 (8.4-10.2) mg/dL Total Bilirubin 0.4 (0.0-1.0) mg/dL AST 12 (5-31) U/L ALT 11 (0-31) U/L Alkaline Phosphatase 69 (39-117) U/L Total Protein 6.0 L (6.5-8.0) g/dL Albumin 3.9 (3.5-5.0) g/dL Imaging Data Chest x-ray: Attestation: I personally reviewed and interpreted this imaging study as follows: Radiologist's impression: EXAMINATION: XR CHEST CLINICAL INFORMATION: Shortness of breath COMPARISON: 11/08/2021 TECHNIQUE: 2 views of the chest were obtained. FINDINGS: Left chest wall port is present with its tip in good position in the proximal right atrium. No significant abnormality is noted involving the heart, lungs, mediastinum, bony thorax or soft tissues. XR/XR chest 2V IMPRESSION: No acute intrathoracic disease. Dictated By: BLANCA SINGLETON MD Signed By: Electronically signed by BLANCA SINGLETON MD 12/04/21 Discharge Plan Discharge Clinical Impression: Asthma Patient Disposition: Home, Self-Care Instructions: Asthma (ED) Additional Instructions: Follow up with your primary care provider and tray line supervisor. Return to the emergency department immediately if your symptoms worsen or if you develop any dizziness, shortness of breath, difficulty breathing, chest pain, blurry vision, loss of vision, nausea, vomiting, abdominal pain, fever, chills, back pain, or any other complaints. Prescriptions: No Action risperidone [Risperdal] 1 mg Tablet 1 mg PO BEDTIME 0RF albuterol sulfate [Ventolin HFA] 90 mcg/actuation Hfa Aerosol Inhaler 2 puff inhalation RQ4H PRN (Reason: Shortness Of Breath) Qty: 6.7 0RF montelukast 10 mg Tablet 10 mg PO BEDTIME 0RF trazodone 100 mg Tablet 200 mg PO BEDTIME 0RF diltiazem HCl 120 mg capsule,extended release 24hr 1 cap PO DAILY 0RF escitalopram oxalate 20 mg tablet 40 mg PO DAILY 0RF Label Comments: Unsure of dosage Rx Instructions: patient states she was recently increased to 40 mg /day lorazepam [Ativan] 1 mg tablet 2 mg PO DAILY PRN (Reason: anxiety) 0RF warfarin 3 mg tablet 8 mg PO DAILY@1800 0RF Rx Instructions: patient was supposed to increase to 8 mg daily, but last dose she actually had was for 5 mg on 11/07/21 pantoprazole 40 mg tablet,delayed release (DR/EC) 1 tab PO BEDTIME 0RF insulin aspart U-100 [Novolog Flexpen U-100 Insulin] 100 unit/mL (3 mL) insulin pen 2 - 16 unit subcut TID 0RF Rx Instructions: per sliding scale Lantus Solostar U-100 Insulin 100 unit/mL (3 mL) insulin pen 15 unit subcut BEDTIME 0RF enoxaparin 100 mg/mL Syringe 100 mg SUBCUT Q12H 0RF cetirizine 10 mg Tablet 10 mg PO BEDTIME 0RF Trelegy Ellipta 200-62.5-25 mcg blister with device 1 inh inhalation DAILY 30 Days Qty: 1 6RF Print Language: Setswana
[2021-12-04] MEDS: Albuterol/Iprat 2.5/0.5MG 3 ML AMPUL.NEB INHALE (18:10)
[2021-12-04 18:11] VITALS: PULSE 127; RESP 20; O2SAT 100
[2021-12-04] MEDS: methylPREDNISolone Sod Succ 125 MG/2 ML VIAL 120 MG IM (20:15)
[2021-12-04] MEDS: diphenhydrAMINE HCL 50 MG/ML VIAL IM (20:15)
[2021-12-04 20:21] VITALS: BP 156/72; PULSE 123; RESP 24; O2SAT 97
--- NOTE | 2021-12-04 20:21 | PC.NURSE ---
provider made aware pt is a difficult stick and her power port is not accessable, due to pain and resistance. pt last used the port over 1 week ago and no heparin was given.
--- NOTE | 2021-12-04 20:22 | PC.NURSE ---
provider meds to be given im.
[2021-12-04 21:25] LABS: MANUAL DIFF FLAG NO
[2021-12-04 21:26] LABS: Basophils Percent Auto 0.4 % (0-2); Eosinophils Absolute Auto 0.1 X10*3/uL (0.0-0.4); Eosinophils Percent Auto 1.4 % (0-4); Hematocrit 29.4 % (37.0-47.0); Hemoglobin 9.2 g/dl (12.0-16.0); Imm Gran Abs Auto 0.05 X10*3/uL (0.00-0.03); Imm Gran Pct Auto 0.7 % (0.0-0.4); Lymphocytes Absolute Auto 1.3 X10*3/uL (1.2-4.9); Mean Corpuscular HGB Conc 31.3 g/dl (31.0-35.0); Mean Corpuscular Hemoglobin 27.2 pg (27.0-33.0); Monocytes Absolute Auto 0.6 X10*3/uL (0.1-1.2); Monocytes Percent Auto 8.5 % (2-11); Neutrophils Absolute Auto 5.3 x10*3/uL (2.0-8.3); Platelet Count 230 X10*3/uL (160-400); Red Blood Count 3.38 X10*6/uL (4.20-5.50); Red Cell Distribution Width 15.8 % (11.0-16.0); White Blood Count 7.4 X10*3/uL (4.8-10.8)
[2021-12-04 21:27] LABS: Venous Blood Gas Refer to POC result
[2021-12-04 21:28] LABS: VBG Base Excess 0.6 mmol/L; VBG HCO3 23 mmol/L (22-26); VBG pCO2 31 mmHg; VBG pH 7.47 (7.32-7.43); VBG pO2 34 mmHg
[2021-12-04 21:42] LABS: Alanine Aminotransferase 11 U/L (0-31); Albumin Level 3.9 g/dL (3.5-5.0); Alkaline Phosphatase 69 U/L (39-117); Anion Gap 13 (12-20); Aspartate Amino Transferase 12 U/L (5-31); Bilirubin Total 0.4 mg/dL (0.0-1.0); Blood Urea Nitrogen 15 mg/dL (9-16); Calcium 9.1 mg/dL (8.4-10.2); Carbon Dioxide 23 mmol/L (22-29); Chloride 108 mmol/L (96-108); Creatinine Clr Calc Pharmacy 85.7; Estimated Glomerular Filt Rate > 60; Glucose Fasting 183 mg/dL (60-99); Potassium 3.9 mmol/L (3.3-5.1); Sodium 140 mmol/L (135-145)
[2021-12-04 22:02] VITALS: BP 122/59; PULSE 114; RESP 16; TEMP 37; O2SAT 95
== END 2021-12-04 22:19 | disposition home or self-care (01) ==
PROVIDERS: Physician Assistant Medical; Emergency Provider Internal Medicine
DX: J45.909 Unspecified asthma, uncomplicated (principal); R06.02 Shortness of breath
CPT/HCPCS: 36415; 71046; 80053; 82803; 85025; 93005; 94640; 96365; 96366; 96372; 99212; 99284; J1200; J2930

== ENCOUNTER → 2022-03-19 15:08 | Outpatient (BNVA) | payer MEDICARE, MEDICAID, SELFPAY | PROVIDERS: Visit Provider Internal Medicine Pulmonary Disease | DX: Z13.89 Encounter for screening for other disorder (principal) | CPT/HCPCS: 99212 ==

== ENCOUNTER 2022-03-19 15:40 | Emergency (ER) | payer MEDICARE, MEDICAID, SELFPAY ==
--- NOTE | 2022-03-19 | ECG_ITS ---
Test Reason : chest pain /sob Blood Pressure : / mmHG Vent. Rate : 116 BPM Atrial Rate : 116 BPM P-R Int : 160 ms QRS Dur : 082 ms QT Int : 348 ms P-R-T Axes : 045 -18 036 degrees QTc Int : 483 ms Sinus tachycardia Low voltage QRS Inferior infarct (cited on or before 08-NOV-2021) Cannot rule out Anterior infarct (cited on or before 08-NOV-2021) Abnormal ECG When compared with ECG of 04-DEC-2021 15:56, No significant change was found Referred By: Generic ED Physician Electronically Signed By:LITTLE ROONEY MD
--- NOTE | ~2022-03-19 | XR_ITS ---
EXAMINATION: XR CHEST CLINICAL INFORMATION: Dyspnea COMPARISON: Chest x-ray 12/04/2021 TECHNIQUE: Frontal view of the chest was obtained. 4:47 PM FINDINGS: Central port catheter tip at caval atrial junction. No change position since prior study. Heart size is normal. Cardiac mediastinal contours are normal. No pulmonary vascular congestion. Lungs normally aerated. No pleural effusion. No pneumothorax. XR/XR chest 1V IMPRESSION: No acute abnormality of the chest.
[2022-03-19 16:06] VITALS: BP 119/68; PULSE 120; RESP 22; TEMP 37.9; O2SAT 98; BMI 47.8
[2022-03-19 17:05] LABS: COVID-19 Test Negative (Negative)
--- NOTE | 2022-03-19 19:47 | ED.GENADULT ---
HPI - General Adult General Chief complaint: Dyspnea Stated complaint: CHF Sent By Dr Baxter Time Seen by Provider: 03/19/22 16:34 Source: patient Mode of arrival: ambulatory Limitations: no limitations History of Present Illness HPI narrative: 51-year-old female history of asthma, recurrent DVT, depression, anxiety, history of GI bleed, came in for shortness of breath wheezing, gained 3 lb in 2 days with difficulty breathing. Patient was evaluated by the armhole raiser lockstitch today sent to the hospital for further evaluation for concern of congestive heart failure exacerbation. Patient was recently hospitalized at [facility] for left lower extremity cellulitis and sepsis, patient was discharged on doxycycline. Related Data Home Medications Medication Instructions Recorded Confirmed montelukast 10 mg tablet 10 mg PO BEDTIME 09/03/20 11/09/21 trazodone 100 mg tablet 200 mg PO BEDTIME 09/03/20 11/09/21 risperidone 1 mg tablet (Risperdal) 1 mg PO BEDTIME 05/13/21 11/09/21 diltiazem HCl 120 mg 1 cap PO DAILY 07/09/21 11/09/21 capsule,extended release 24 hr escitalopram oxalate 20 mg tablet 40 mg PO DAILY 07/09/21 11/09/21 cetirizine 10 mg tablet 10 mg PO BEDTIME 11/09/21 11/09/21 insulin aspart U-100 100 unit/mL 2 - 16 unit SUBCUT TID 11/09/21 11/09/21 (3 mL) subcutaneous pen (Novolog Flexpen U-100 Insulin aspart) insulin glargine 100 unit/mL (3 15 unit SUBCUT BEDTIME 11/09/21 11/09/21 mL) subcutaneous pen (Lantus Solostar U-100 Insulin) lorazepam 1 mg tablet (Ativan) 2 mg PO DAILY PRN 11/09/21 11/09/21 pantoprazole 40 mg tablet,delayed 1 tab PO BEDTIME 11/09/21 11/09/21 release warfarin 3 mg tablet 8 mg PO DAILY@1800 11/09/21 11/09/21 buspirone 15 mg tablet 15 mg PO tab 03/19/22 Previous Rx's Medication Instructions Recorded albuterol sulfate 90 mcg/actuation 2 puff INHALATION RQ4H PRN #6.7 g 05/17/21 aerosol inhaler (Ventolin HFA) fluticasone fur. 200 mcg-umeclid 1 inh INHALATION DAILY 30 Days #1 08/27/21 62.5 mcg-vilant 25 mcg ea inhalat.powder (Trelegy Ellipta) Allergies Allergy/AdvReac Type Severity Reaction Status Date / Time azithromycin Allergy Intermediate ITCHING Verified 03/19/22 16:06 [From ZITHROMAX Z-XANDER] amoxicillin [AMOXICILLIN] Allergy Unknown UNKNOWN, Verified 03/19/22 16:06 hives, swelling budesonide [From SYMBICORT] Allergy Unknown UNKNOWN Verified 03/19/22 16:06 cefpodoxime [From VANTIN] Allergy Unknown UNKNOWN Verified 03/19/22 16:06 cefuroxime [From CEFTIN] Allergy Unknown UNKNOWN Verified 03/19/22 16:06 Cephalosporins Allergy Unknown UNKNOWN Verified 03/19/22 16:06 [CEPHALOSPORINS] ciprofloxacin [From CIPRO] Allergy Unknown UNKNOWN Verified 03/19/22 16:06 diphtheria,pertussis Allergy Unknown Unknown Verified 03/19/22 16:06 (acellular),te [Adacel(Tdap Adolesn/Adult)(PF)] erythromycin base Allergy Unknown UNKNOWN Verified 03/19/22 16:06 [ERYTHROMYCIN BASE] fluticasone [Advair Diskus] Allergy Unknown Unknown Verified 03/19/22 16:06 formoterol [From SYMBICORT] Allergy Unknown UNKNOWN Verified 03/19/22 16:06 hydrocodone [From VICODIN] Allergy Unknown unknown Verified 03/19/22 16:06 Iodinated Contrast Media Allergy Unknown UNKNOWN Verified 03/19/22 16:06 [CONTRAST, IV] levofloxacin [From LEVAQUIN] Allergy Unknown UNKNOWN Verified 03/19/22 16:06 penicillin G Allergy Unknown Unknown Verified 03/19/22 16:06 penicillin V Allergy Unknown Unknown Verified 03/19/22 16:06 Penicillins [PENICILLINS] Allergy Unknown UNKNOWN Verified 03/19/22 16:06 salmeterol [Advair Diskus] Allergy Unknown Unknown Verified 03/19/22 16:06 sertraline [From ZOLOFT] Allergy Unknown SUICIDAL Verified 03/19/22 16:06 Sulfa (Sulfonamide Allergy Unknown hives Verified 03/19/22 16:06 Antibiotics) tetanus and diphtheria Allergy Unknown UNKNOWN Verified 03/19/22 16:06 toxoids [TETANUS & DIPHTHERIA TOXOIDS] Vantin Allergy Unknown Unknown Verified 03/19/22 16:06 methylprednisolone Allergy Eye Verified 03/19/22 16:06 [From Solu-Medrol] Swelling ketorolac [From TORADOL] AdvReac Mild ITCHING Verified 03/19/22 16:06 Ceftin Allergy Unknown Unknown Uncoded 03/19/22 16:06 IV dye Allergy Unknown Unknown Uncoded 03/19/22 16:06 Symbicort Allergy Unknown Unknown Uncoded 03/19/22 16:06 Tetanus Allergy Unknown Unknown Uncoded 03/19/22 16:06 Erythromycin Allergy Unknown Uncoded 03/19/22 16:06 Review of Systems Review of Systems: All other systems are reviewed and are negative Constitutional: Reports as per HPI and Reports no additional constitutional complaints Eyes: Reports as per HPI and Reports no additional eye complaints Reports system reviewed and no additional complaints, except as documented Cardiovascular: Reports as per HPI and Reports no additional cardiovascular complaints Respiratory: Reports as per HPI and Reports no additional respiratory complaints Gastrointestinal: Reports as per HPI and Reports no additional gastrointestinal complaints Genitourinary: Reports no additional female genitourinary complaints Musculoskeletal: Reports no additional musculoskeletal complaints Skin/Breast: Reports system reviewed and no additional complaints, except as docu Psychiatric: Reports no additional psychiatric complaints Endocrine: Reports no additional endocrine complaints Hematologic/Lymphatic: Reports no additional hematologic/lymphatic complaints Allergic/Immunologic: Reports no additional allergic/immunologic complaints Reports system reviewed and no additional complaints, except as documented and Reports Abnormal speech present [facility] Past Medical History Medical History Anxiety Anxiety Asthma Atrial fibrillation CHF (congestive heart failure) Depression DVT (deep venous thrombosis) Hypertension Irritable bowel Morbid obesity Pulmonary embolism Surgical History H/O adenoidectomy History of hysterectomy History of tonsillectomy Hx of breast reduction, elective Social History Social History Household Members: Spouse and Children Household Members Other:: 3 Housing: House Housing Other:: duplex Do you presently have visiting nurse or other home services: No Alcohol intake: current Alcohol intake frequency: holidays/special occasions only Alcohol type: hard liquor Patient Tobacco Use Status: Former Tobacco user e-Cigarette/Vaping Use: Never Used Second Hand Smoke Exposure: No Substance Use Type: Marijuana Advance Directives: Yes Advance Directives on File: Yes Advance Directives Date on File: 09/06/20 service: No Current occupational status: unemployed and disabled Sexual orientation: Straight/Heterosexual Physical Exam ED Vital Signs: Vital Signs - 24 hr 03/19/22 16:06 Temperature 100.3 F Pulse Rate 120 H Respiratory Rate 22 H Blood Pressure 119/68 Pulse Oximetry 98 BMI result Body Mass Index 47.8 Vital signs have been reviewed as appeared to be correct. Blood pressure normal. Heart rate elevated Respiration rate normal. Low-grade fever. Oxygen saturation normal. Appearance: Alert. Oriented X3. No acute distress. Head: Normal external exam. Normocephalic. Atraumatic. No Salter signs noted. No raccoon eyes noted Eyes: PERRLA. EOMI. Conjunctiva and sclera normal. Eyelids normal. ENT: TM's Normal. Pharynx normal. Uvula midline. Moist mucous membranes. No trismus noted. No drooling noted. No muffled voice noted. Neck: Normal inspection. Neck supple. FROM. No adenopathy. Thyroid Normal. No meningeal signs. No neck mass noted. CVS: Normal heart rate and rhythm. Heart sound normal. No murmurs noted. Pulses normal throughout. Respiratory: No respiratory distress. Painless inspiration. Breath sounds normal. Bilateral lung bases rales. nontender. No accessory muscle usage noted or decreased air movement noted. Abdomen: Soft and nontender. Bowel sounds normal in all 4 quadrants. No distention noted. No organomegaly noted. No visible injury noted. Back: No CVA tenderness. Full range of motion noted. Skin: Skin warm and dry. Normal skin color. Normal skin turgor. No rashes/lesions/lacerations noted. Extremities: +2 lower extremity edema. Extremities exhibit normal range of motion. Extremities nontender. Neuro: Oriented X 3. Cranial nerve exam: II-XII are grossly intact No motor deficit. No sensory deficit. Reflexes normal. Course Course Course Narrative: Assessment and plan. 51 years old female came in for evaluation of shortness of breath bilateral lower extremities edema exam is consistent with mild congestive heart failure, labs still pending case signed to Dr. Mi. Medical Decision Making Lab Data Labs: Lab Results 03/19/22 Range/Units 16:23 COVID-19 (ELYSE) Negative (Negative) COVID-19 Clin Com See Note Discharge Plan Discharge Clinical Impression: Acute exacerbation of chronic obstructive airways disease, CHF (congestive heart failure) Patient Disposition: Still a Patient Prescriptions: No Action risperidone [Risperdal] 1 mg Tablet 1 mg PO BEDTIME 0RF albuterol sulfate [Ventolin HFA] 90 mcg/actuation Hfa Aerosol Inhaler 2 puff inhalation RQ4H PRN (Reason: Shortness Of Breath) Qty: 6.7 0RF montelukast 10 mg Tablet 10 mg PO BEDTIME 0RF trazodone 100 mg Tablet 200 mg PO BEDTIME 0RF diltiazem HCl 120 mg capsule,extended release 24hr 1 cap PO DAILY 0RF escitalopram oxalate 20 mg tablet 40 mg PO DAILY 0RF Label Comments: Unsure of dosage Rx Instructions: patient states she was recently increased to 40 mg /day lorazepam [Ativan] 1 mg tablet 2 mg PO DAILY PRN (Reason: anxiety) 0RF warfarin 3 mg tablet 8 mg PO DAILY@1800 0RF Rx Instructions: patient was supposed to increase to 8 mg daily, but last dose she actually had was for 5 mg on 11/07/21 pantoprazole 40 mg tablet,delayed release (DR/EC) 1 tab PO BEDTIME 0RF insulin aspart U-100 [Novolog Flexpen U-100 Insulin] 100 unit/mL (3 mL) insulin pen 2 - 16 unit subcut TID 0RF Rx Instructions: per sliding scale Lantus Solostar U-100 Insulin 100 unit/mL (3 mL) insulin pen 15 unit subcut BEDTIME 0RF cetirizine 10 mg Tablet 10 mg PO BEDTIME 0RF Trelegy Ellipta 200-62.5-25 mcg blister with device 1 inh inhalation DAILY 30 Days Qty: 1 6RF buspirone 15 mg tablet 15 mg PO 0RF
--- NOTE | 2022-03-19 20:25 | PC.NURSE ---
ATTEMPTED TO OBTAIN BLOODWORK WITH NO SUCCESS. PHLEBOTOMY WAS CALLED AND WAS ALSO UNABLE TO OBTAIN BLOODWORK. RN AND AWARE.
[2022-03-19 20:56] LABS: MANUAL DIFF FLAG NO
[2022-03-19 20:58] LABS: Basophils Percent Auto 0.4 % (0-2); Eosinophils Absolute Auto 0.1 X10*3/uL (0.0-0.4); Eosinophils Percent Auto 1.7 % (0-4); Hematocrit 26.1 % (37.0-47.0); Hemoglobin 8.4 g/dl (12.0-16.0); Imm Gran Abs Auto 0.04 X10*3/uL (0.00-0.03); Imm Gran Pct Auto 0.8 % (0.0-0.4); Lymphocytes Absolute Auto 1.3 X10*3/uL (1.2-4.9); Lymphocytes Percent Auto 24.9 % (20-40); Mean Corpuscular HGB Conc 32.2 g/dl (31.0-35.0); Mean Corpuscular Hemoglobin 27.7 pg (27.0-33.0); Mean Corpuscular Volume 86.1 fL (80.0-98.0); Mean Platelet Volume 10.5 fL (9.4-12.3); Monocytes Absolute Auto 0.5 X10*3/uL (0.1-1.2); Monocytes Percent Auto 9.1 % (2-11); Neutrophils Absolute Auto 3.3 x10*3/uL (2.0-8.3); Neutrophils Percent Auto 63.1 % (45-73); Platelet Count 213 X10*3/uL (160-400); Red Blood Count 3.03 X10*6/uL (4.20-5.50); Red Cell Distribution Width 15.1 % (11.0-16.0); White Blood Count 5.2 X10*3/uL (4.8-10.8)
[2022-03-19 21:13] LABS: Lactic Acid 2.5 mmol/L (0.5-2.0)
[2022-03-19 21:18] LABS: B Type Natriuretic Peptide 41 pg/mL (<100); Troponin-I High Sensitivity < 3.5 ng/L (<3.5-17.0)
[2022-03-19 21:20] VITALS: BP 137/73; PULSE 91; RESP 20; O2SAT 97
[2022-03-19 22:00] VITALS: BP 112/74; PULSE 96; RESP 16; O2SAT 98
[2022-03-19 22:00] LABS: Venous Blood Gas Refer to POC result
[2022-03-19 22:05] LABS: VBG Base Excess 7.2 mmol/L; VBG HCO3 30 mmol/L (22-26); VBG pCO2 40 mmHg; VBG pH 7.49 (7.32-7.43); VBG pO2 68 mmHg
[2022-03-19 22:07] LABS: Prothrombin Time 23.6 SEC (9.9-13.0)
--- NOTE | 2022-03-19 22:09 | PC.NURSE ---
cONTACT MADE TO LAB REGARDING CHEMISTRY: DELAY DUE TO CLOTTING IN ANALYZER.
[2022-03-19 22:13] LABS: Anion Gap 13 (12-20); Blood Urea Nitrogen 8 mg/dL (9-16); Calcium 9.1 mg/dL (8.4-10.2); Carbon Dioxide 26 mmol/L (22-29); Chloride 103 mmol/L (96-108); Creatinine Clr Calc Pharmacy 91.7; Estimated Glomerular Filt Rate > 60; Glucose Random 180 mg/dL (60-115); Potassium 2.9 mmol/L (3.3-5.1); Sodium 139 mmol/L (135-145)
[2022-03-19 22:55] LABS: Reflex Lactate? Lactic Acid Added
[2022-03-19 23:46] LABS: OBS Int Ctl Valid YES; OBS1 NEGATIVE (NEGATIVE)
[2022-03-19] MEDS: 0.9 % Sodium Chloride 500 ML 999 ML IV (23:53)
[2022-03-19 23:55] LABS: ~Lactic Acid-LAB USE ONLY 1.7 mmol/L (0.5-2.0)
[2022-03-20] MEDS: Potassium Chloride ER 20 MEQ TAB.ER.PRT 60 MEQ PO
[2022-03-20] MEDS: Magnesium Hydrox/Alum Hydrox 30 ML ORAL.SUSP PO (00:08)
[2022-03-20 00:09] VITALS: RESP 12
[2022-03-20] MEDS: Lidocaine HCl Viscous 2 % 15 ML SOLUTION 10 ML MUCOUS MEM (00:09)
[2022-03-20] MEDS: fentaNYL citrate/PF 100 MCG/2 ML VIAL 25 MCG IVPUSH (00:09)
[2022-03-20 00:33] VITALS: BP 122/68; PULSE 87; RESP 19; TEMP 36.9; O2SAT 97
[2022-03-20 00:45] LABS: Glucose, Whole Blood 118 mg/dL (60-115)
[2022-03-20] MEDS: Potassium Chloride/H20 10 MEQ/100 ML PIGGYBACK 100 MEQ IV ×2 (01:07)
[2022-03-20 02:48] VITALS: BP 115/62; PULSE 86; RESP 20; TEMP 36.9; O2SAT 100
[2022-03-20 02:48] LABS: Anion Gap 12 (12-20); Blood Urea Nitrogen 7 mg/dL (9-16); Calcium 8.6 mg/dL (8.4-10.2); Carbon Dioxide 26 mmol/L (22-29); Chloride 105 mmol/L (96-108); Estimated Glomerular Filt Rate > 60; Glucose Random 137 mg/dL (60-115); Potassium 3.8 mmol/L (3.3-5.1); Sodium 139 mmol/L (135-145)
[2022-03-20] MEDS: HYDROmorphone HCl 2 MG TABLET 1 MG PO (03:38)
== END 2022-03-20 04:00 | disposition home or self-care (01) ==
PROVIDERS: Emergency Medicine; Emergency Provider Student in an Organized Health Care Education/Training Program
DX: J44.1 Chronic obstructive pulmonary disease with (acute) exacerbation (principal); I11.0 Hypertensive heart disease with heart failure; I50.9 Heart failure, unspecified; D64.9 Anemia, unspecified; E87.6 Hypokalemia; Z20.822 Contact with and (suspected) exposure to COVID-19; R60.0 Localized edema; R06.02 Shortness of breath; R50.9 Fever, unspecified; I48.91 Unspecified atrial fibrillation; F41.9 Anxiety disorder, unspecified; Z86.711 Personal history of pulmonary embolism; Z86.718 Personal history of other venous thrombosis and embolism; Z79.4 Long term (current) use of insulin; Z79.899 Other long term (current) drug therapy; Z79.01 Long term (current) use of anticoagulants
CPT/HCPCS: 36415; 71045; 80048; 82272; 82803; 82947; 83605; 83880; 84484; 85025; 85610; 87040; 87635; 93005; 96361; 96365; 96375; 99212; 99285; J1642; J3010

== ENCOUNTER → 2022-06-14 15:13 | Outpatient (BNVA) | payer MEDICARE, MEDICAID, SELFPAY | PROVIDERS: PCP Internal Medicine; Visit Provider Internal Medicine Pulmonary Disease | DX: J45.909 Unspecified asthma, uncomplicated (principal); R06.00 Dyspnea, unspecified | CPT/HCPCS: 99212 ==

== ENCOUNTER 2023-05-16 15:15 | Emergency (ER) | payer MEDICARE, SELFPAY ==
--- NOTE | ~2023-05-16 | CT_ITS ---
EXAMINATION: CT ANGIOGRAM OF THE CHEST WITH AND WITHOUT CONTRAST (CT PULMONARY ANGIOGRAM FOR PE) CLINICAL INFORMATION: Reason for Exam hx PE, off anticoag, CP, SOB, tachycardia COMPARISON: 06/11/2019 TECHNIQUE: Prior to contrast administration, noncontrast localization images were obtained. Subsequently, multidetector volumetric imaging was performed from the thoracic inlet to below the diaphragms following the administration of 80 mL Omnipaque 350 intravenous contrast. No contrast reaction reported Sagittal, coronal, and MIP oblique sagittal reformatted images were obtained on the CT workstation, uploaded to PACS, and reviewed. This CT examination was performed using dose optimization techniques as appropriate, variously including the following: *Automated exposure control *Adjustment of mA and/or kV according to patient size (this includes techniques or standardized protocols for targeted exams where dose is matched to indication/reason for exam; i.e. extremities or head) *Use of iterative reconstruction technique Total exam dose-length product 329 mGy-cm FINDINGS: QUALITY OF STUDY/CONTRAST BOLUS: Satisfactory. PULMONARY ARTERIES: This exam is limited by patient body habitus which creates artifact limiting evaluation. Given this there is no convincing evidence of filling defect to suggest a pulmonary embolism. There is no bowing of the septum. No reflux into the hepatic veins. The thoracic inlet is within normal limits. The axillary regions are unremarkable. Partially imaged upper abdominal structures unremarkable. Centrally no significant coronary calcifications. There is no bulky central adenopathy. The hilar regions do not appear pathologically enlarged. Imaging lung botello. Right lung; There is no infiltrate or effusion. Left lung; There is no infiltrate or effusion Review of the bone window shows no suspicious finding. Degenerative change in the thoracic spine. CT/CT angio chest PE protocol IMPRESSION: Limited from patient body habitus. Given this there is no convincing evidence of a filling defect to suggest a pulmonary embolism. No significant infiltrate or effusion VTE: negative
--- NOTE | ~2023-05-16 | XR_ITS ---
EXAMINATION: XR CHEST CLINICAL INFORMATION: Chest pain. Dyspnea. COMPARISON: 03/19/2022 TECHNIQUE: 2 views of the chest were obtained. FINDINGS: The lungs are well expanded. There is a left chest wall Port-A-Cath with tip projecting over the right atrium. No focal consolidation. No pleural effusion. Cardiac silhouette is unchanged. XR/XR chest 2V IMPRESSION: No acute abnormality.
--- NOTE | 2023-05-16 15:17 | ECG_ITS ---
Test Reason : chest pain Blood Pressure : / mmHG Vent. Rate : 107 BPM Atrial Rate : 107 BPM P-R Int : 164 ms QRS Dur : 078 ms QT Int : 344 ms P-R-T Axes : 051 -11 048 degrees QTc Int : 459 ms Sinus tachycardia Low voltage QRS Cannot rule out Inferior infarct (cited on or before 08-NOV-2021) Possible Anterolateral infarct (cited on or before 08-NOV-2021) Abnormal ECG When compared with ECG of 19-MAR-2022 16:10, No significant change was found Referred By: Jesenia Grover Electronically Signed By:LITTLE ROONEY MD
--- NOTE | 2023-05-16 15:29 | ED.GENADULT ---
HPI - General Adult General Chief complaint: Chest Pain Stated complaint: trouble breathing, chest pain Time Seen by Provider: 05/16/23 19:45 Source: patient Mode of arrival: ambulatory Limitations: no limitations History of Present Illness HPI narrative: Patient is a 52-year-old female with past medical history of pulmonary embolism, DVT, factor 5 Leiden, atrial fibrillation,CHF, asthma, depression who presents emergency department for evaluation of sudden onset chest pain and shortness of breath earlier today. She states [place] the [place] and she developed mid chest pain, unable to describe it, unable to identify any exacerbating factors, and she felt acutely short of breath she also became flushed and lightheaded. She reports a history of pulmonary embolism in September of 2022, for which she was treated with warfarin. She states that in March of 2023 she was admitted to [facility] for rectal bleeding, at which point her warfarin was discontinued and she was transitioned to Eliquis. She states that she has not been taking the Eliquis for the past 1-2 weeks as she ran out of the medication, and her primary care provider will not refill it as it is a new medication and she has an appointment to follow-up with them in 2 days. Related Data Home Medications Medication Instructions Recorded Confirmed montelukast 10 mg tablet 10 mg PO BEDTIME 09/03/20 11/09/21 trazodone 100 mg tablet 200 mg PO BEDTIME 09/03/20 11/09/21 risperidone 1 mg tablet (Risperdal) 1 mg PO BEDTIME 05/13/21 11/09/21 diltiazem HCl 120 mg 1 cap PO DAILY 07/09/21 11/09/21 capsule,extended release 24 hr escitalopram oxalate 20 mg tablet 40 mg PO DAILY 07/09/21 11/09/21 cetirizine 10 mg tablet 10 mg PO BEDTIME 11/09/21 11/09/21 insulin aspart U-100 100 unit/mL 2 - 16 unit subcut TID 11/09/21 11/09/21 (3 mL) subcutaneous pen (Novolog FlexPen U-100 Insulin aspart) insulin glargine 100 unit/mL (3 15 unit subcut BEDTIME 11/09/21 11/09/21 mL) subcutaneous pen (Lantus Solostar U-100 Insulin) lorazepam 1 mg tablet (Ativan) 2 mg PO DAILY PRN anxiety 11/09/21 11/09/21 pantoprazole 40 mg tablet,delayed 1 tab PO BEDTIME 11/09/21 11/09/21 release warfarin 3 mg tablet 8 mg PO DAILY@1800 11/09/21 11/09/21 buspirone 15 mg tablet 15 mg PO 03/19/22 diazepam 2 mg tablet mg PO 06/14/22 risperidone 2 mg tablet mg PO 06/14/22 spironolactone 25 mg tablet mg PO 06/14/22 Previous Rx's Medication Instructions Recorded albuterol sulfate 90 mcg/actuation 2 puff inhalation RQ4H PRN 05/17/21 aerosol inhaler (Ventolin HFA) Shortness Of Breath #6.7 grams fluticasone fur. 200 mcg-umeclid 1 inh inhalation DAILY 30 days #1 08/27/21 62.5 mcg-vilant 25 mcg ea inhalat.powder (Trelegy Ellipta) apixaban 5 mg tablet (Eliquis) 5 mg PO BID 30 days #60 tabs 05/17/23 Allergies Allergy/AdvReac Type Severity Reaction Status Date / Time azithromycin Allergy Intermediate ITCHING Verified 06/14/22 15:15 [From ZITHROMAX Z-XANDER] amoxicillin [AMOXICILLIN] Allergy Unknown UNKNOWN, Verified 06/14/22 15:15 hives, swelling budesonide [From SYMBICORT] Allergy Unknown UNKNOWN Verified 06/14/22 15:15 cefpodoxime [From VANTIN] Allergy Unknown UNKNOWN Verified 06/14/22 15:15 cefuroxime [From CEFTIN] Allergy Unknown UNKNOWN Verified 06/14/22 15:15 Cephalosporins Allergy Unknown UNKNOWN Verified 06/14/22 15:15 [CEPHALOSPORINS] ciprofloxacin [From CIPRO] Allergy Unknown UNKNOWN Verified 06/14/22 15:15 diphtheria,pertussis Allergy Unknown Unknown Verified 06/14/22 15:15 (acellular),te [Adacel(Tdap Adolesn/Adult)(PF)] erythromycin base Allergy Unknown UNKNOWN Verified 06/14/22 15:15 [ERYTHROMYCIN BASE] fluticasone [Advair Diskus] Allergy Unknown Unknown Verified 06/14/22 15:15 formoterol [From SYMBICORT] Allergy Unknown UNKNOWN Verified 06/14/22 15:15 hydrocodone [From VICODIN] Allergy Unknown unknown Verified 06/14/22 15:15 Iodinated Contrast Media Allergy Unknown UNKNOWN Verified 06/14/22 15:15 [CONTRAST, IV] levofloxacin [From LEVAQUIN] Allergy Unknown UNKNOWN Verified 06/14/22 15:15 penicillin G Allergy Unknown Unknown Verified 06/14/22 15:15 penicillin V Allergy Unknown Unknown Verified 06/14/22 15:15 Penicillins [PENICILLINS] Allergy Unknown UNKNOWN Verified 06/14/22 15:15 salmeterol [Advair Diskus] Allergy Unknown Unknown Verified 06/14/22 15:15 sertraline [From ZOLOFT] Allergy Unknown SUICIDAL Verified 06/14/22 15:15 Sulfa (Sulfonamide Allergy Unknown hives Verified 06/14/22 15:15 Antibiotics) tetanus and diphtheria Allergy Unknown UNKNOWN Verified 06/14/22 15:15 toxoids [TETANUS & DIPHTHERIA TOXOIDS] ertapenem Allergy Swelling Verified 05/16/23 15:30 methylprednisolone Allergy Eye Verified 06/14/22 15:15 [From Solu-Medrol] Swelling ketorolac [From TORADOL] AdvReac Mild ITCHING Verified 06/14/22 15:15 iron AdvReac Anaphylaxis Verified 05/16/23 15:30 Ceftin Allergy Unknown Unknown Uncoded 03/19/22 16:06 Symbicort Allergy Unknown Unknown Uncoded 03/19/22 16:06 Tetanus Allergy Unknown Unknown Uncoded 03/19/22 16:06 Erythromycin Allergy Unknown Uncoded 03/19/22 16:06 Review of Systems Review of Systems: Constitutional: No fever. No chills. No weakness. No fatigue. Eye: No swelling. No redness. ENT: No sore throat. No rhinorrhea. No nasal congestion. No sore throat. No difficulty swallowing. Skin: No rash. No itching. Cardiovascular: Positive chest pain. positive palpitations. No pedal edema. Respiratory: positive shortness of breath. No cough. No sputum production. Gastrointestinal: No anorexia. No nausea. No vomiting. No diarrhea. No abdominal pain. No blood in stool. Genitourinary: No burning micturition. No urinary frequency. No incontinence. Neurologic: No headache. positivedizziness. No pre-syncope/ syncope. No unilateral weakness. No ataxia. No numbness. No tingling. No change in bowel or bladder control. Musculoskeletal: No muscle pain. No back pain. No joint pain. No stiffness. Hematologic: No bleeding. No bruising. Yes all other systems are reviewed and are negative [facility] Past Medical History Attestation statement: The following information was validated with the patient. Source: old records reviewed Medical History Anxiety Anxiety Asthma Atrial fibrillation CHF (congestive heart failure) Depression DVT (deep venous thrombosis) Hypertension Irritable bowel Morbid obesity Pulmonary embolism Surgical History H/O adenoidectomy History of hysterectomy History of tonsillectomy Hx of breast reduction, elective Social History Social History Household Members: Spouse and Children Household Members Other:: 3 Housing: House Housing Other:: duplex Do you presently have visiting nurse or other home services: No Alcohol intake: former Patient Tobacco Use Status: Former Tobacco user Smoked in Last 30 Days: No e-Cigarette/Vaping Use: Never Used Second Hand Smoke Exposure: No Use of substances other than those prescribed or required for medical reasons: No Substance Use Type: Marijuana Advance Directives: Yes Advance Directives on File: Yes Advance Directives Date on File: 09/06/20 service: No Current occupational status: unemployed and disabled Sexual orientation: Straight/Heterosexual Physical Exam ED Vital Signs: Vital Signs - 24 hr 05/16/23 15:30 05/16/23 20:00 05/16/23 21:36 Temperature 97.9 F 98.4 F Pulse Rate 107 H 96 97 Respiratory Rate 20 23 H 20 Blood Pressure 127/50 L 106/56 L 101/65 Pulse Oximetry 99 99 99 Oxygen Delivery Method Room Air Room Air Room Air 05/16/23 21:53 05/16/23 22:00 05/16/23 23:33 Temperature 97.1 F 98.3 F Pulse Rate 97 92 97 Respiratory Rate 18 16 15 Blood Pressure 119/72 114/67 116/61 Pulse Oximetry 98 96 94 Oxygen Delivery Method Room Air Room Air Room Air BMI result Body Mass Index 40.0 Appearance: Alert.?Oriented to person, place and time. No acute distress.?Normal affect. Eyes: Pupils equal, round and reactive to light.? ENT: Pharynx normal.?? Neck: Normal inspection.? Neck supple.?? CVS: Heart sounds normal. sinus tachycardia.? Pulses normal.?? Respiratory: No respiratory distress.? Lung sounds clear to auscultation bilaterally?? Abdomen: Soft and non-tender. Normoactive bowel sounds. Skin: Skin warm and dry.? Normal skin color.? Extremities: No lower extremity edema.? No calf ttp? Neuro: Moves all extremities spontaneously. Sensation intact bilaterally. CN II-XII intact. No focal neuro deficits. Ambulates with normal steady gait. Course Course Course Narrative: This is a rapid medical exam: Additional HPI, ROS, PE not included below will be deferred to primary provider. Patient is a 52-year-old female with history of asthma, CHF, MDD presenting to the emergency department with complaint of chest pain and shortness of breath since earlier today. States became flushed, lightheaded, and felt short of breath. States has recently lost weight due to being on Trulicity. Reports had a PE in September, was on Eliquis but has been off of it for the past 1-2 weeks, was told her doctor wanted her off of it until she was re-evaluated, appointment is next week. Reports dyspnea is worse with exertion. Plan: EKG, labs, CXR Reevaluation(s) Reevaluation #1: patient has reported allergy to IV contrast, states that she develops facial rash and itching, denies this to be urticaria. States that she has had numerous CT scans with IV contrast and she is premedicated with Benadryl and Solu-Medrol in tolerates the contrast fine. Upon review of our records here there is an allergy listed to Solu-Medrol including eye swelling, when asked patient denies this allergy. She states that she receives this without issue prior to any CT contrast Time: 21:00 Reevaluation #2: Patient did endorse having itching after receiving the IV contrast, no anaphylaxis, no urticaria, no respiratory compromise. CT is without evidence of filling defect to suggest pulmonary embolism and no significant infiltrates or effusion. I spoke with patient she was advised of these findings. Will obtain delta troponin to completely exclude ACS. If this is normal, advised outpatient follow-up with her primary care provider as scheduled in 2 days. Time: 00:51 Reevaluation #3: Delta troponin negative, unlikely ACS. Will send prescription for Eliquis 5 mg b.i.d. to patient's pharmacy to that she may take until she follows up with her primary care provider, reviewed worrisome signs and symptoms that would warrant re-evaluation in the emergency department. All questions answered. Stable for discharge. Time: 01:41 Medications Administered Generic Name Dose Route Start Last Admin Trade Name Freq PRN Reason Stop Dose Admin Sodium Chloride 1,000 mls @ 999 mls/hr 05/17/23 00:45 05/17/23 01:12 Ns IV 05/17/23 01:45 999 mls/hr .Q1H1M ONEIDA Administration Discontinued Medications Generic Name Dose Route Start Last Admin Trade Name Freq PRN Reason Stop Dose Admin Diphenhydramine HCl 50 mg 05/16/23 21:22 05/16/23 21:28 Diphenhydramine Hcl 50 Mg/Ml Vial IVPUSH 05/16/23 21:23 50 mg ONCE ONE Administration Diphenhydramine HCl 12.5 mg 05/17/23 00:50 05/17/23 01:12 Diphenhydramine Hcl 50 Mg/Ml Vial IVPUSH 05/17/23 00:51 12.5 mg ONCE ONE Administration Methylprednisolone Sodium Succinate 125 mg 05/16/23 21:22 05/16/23 21:28 Methylprednisolone Sod Succ 125 Mg/2 Ml Vial IVPUSH 05/16/23 21:23 125 mg ONCE ONE Administration Ondansetron HCl 4 mg 05/16/23 21:24 05/16/23 21:28 Ondansetron Hcl 4 Mg/2 Ml Vial IVPUSH 05/16/23 21:25 4 mg ONCE ONE Administration Ondansetron HCl 4 mg 05/16/23 21:44 05/16/23 22:22 Ondansetron Hcl 4 Mg/2 Ml Vial IVPUSH 05/16/23 21:45 4 mg ONCE ONE Administration Medical Decision Making Medical Decision Making MDM Narrative: Patient is a 52-year-old female with past medical history of pulmonary embolism, DVT, factor 5 Leiden, atrial fibrillation,CHF, asthma presented to the emergency department for evaluation of chest pain and shortness of breath as per HPI. At the time my examination she is in no apparent respiratory distress, she is noted to be tachycardic, without tachypnea, hypoxia. Lung sounds are clear bilaterally. Given her a pulmonary embolism and not having been on anticoagulants for the past 1-2 weeks, will obtain CT angio of the chest. Will obtain CBC to evaluate for leukocytosis/ anemia, CMP and lipase to evaluate for abnormal electrolytes /abnormal renal function/ abnormal hepatic/biliary function, EKG and troponin to evaluate for ischemia/ACS. Differential Diagnosis Differential Diagnoses: The differential diagnosis associated with the presentation includes ( ACS, pulmonary embolism, pneumonia, asthma exacerbation,) Admission/Observation Consideration of admission/observation: Escalation of care including admission/observation considered ( I considered admission for chest pain and shortness of breath, see course narrative for further detail) Lab Data MDM Lab Attestation statement: I reviewed the patient's lab results. (see coarse narrative) 05/16/23 20:19 05/16/23 20:19 Labs: Lab Results 05/16/23 05/16/23 05/16/23 Range/Units 20:19 20:19 20:19 WBC 5.7 (4.8-10.8) X10*3/uL RBC 3.76 L D (4.20-5.50) X10*6/uL Hgb 9.8 L (12.0-16.0) g/dl Hct 30.7 L (37.0-47.0) % MCV 81.6 (80.0-98.0) fL MCH 26.1 L (27.0-33.0) pg MCHC 31.9 (31.0-35.0) g/dl RDW 15.0 (11.0-16.0) % Plt Count 233 (160-400) X10*3/uL MPV 11.6 (9.4-12.3) fL Immature Gran % (Auto) 0.2 (0.0-0.4) % Neut % (Auto) 67.9 (45-73) % Lymph % (Auto) 24.5 (20-40) % Thomas % (Auto) 7.0 (2-11) % Eos % (Auto) 0.2 (0-4) % Baso % (Auto) 0.2 (0-2) % Lymph # (Auto) 1.4 (1.2-4.9) X10*3/uL Thomas # (Auto) 0.4 (0.1-1.2) X10*3/uL Eos # (Auto) 0.0 (0.0-0.4) X10*3/uL Baso # (Auto) 0.0 (0.0-0.2) X10*3/uL Abs Immat Gran (auto) 0.01 (0.00-0.03) X10*3/uL Absolute Neuts (auto) 3.9 (2.0-8.3) x10*3/uL Absolute Nucleated RBC 0.000 (0.0-0.012) X10*3/uL Nucleated RBC % (auto) 0.0 (0.0-0.2) /100WBC PT 12.2 (11.1-13.3) SEC INR 1.0 (0.9-1.1) D-Dimer High Sensitivty < 150 NG/ML Sodium 138 (135-145) mmol/L Potassium 4.1 (3.3-5.1) mmol/L Chloride 107 (96-108) mmol/L Carbon Dioxide 18 L (22-29) mmol/L Anion Gap 17 (12-20) BUN 6 L (9-16) mg/dL Creatinine 0.73 (0.5-1.4) mg/dL Estim Creat Clear Calc 87.0 Estimated GFR > 60 Random Glucose 94 (60-115) mg/dL Calcium 9.8 D (8.4-10.2) mg/dL Total Bilirubin 0.4 (0.0-1.0) mg/dL AST 14 (5-31) U/L ALT 15 (0-31) U/L Alkaline Phosphatase 102 (39-117) U/L Troponin I High Sens (<3.5-17.0) ng/L B-Natriuretic Peptide (<100) pg/mL Total Protein 6.8 (6.5-8.0) g/dL Albumin 4.1 (3.5-5.0) g/dL 05/16/23 05/16/23 05/17/23 Range/Units 20:20 20:20 01:10 WBC (4.8-10.8) X10*3/uL RBC (4.20-5.50) X10*6/uL Hgb (12.0-16.0) g/dl Hct (37.0-47.0) % MCV (80.0-98.0) fL MCH (27.0-33.0) pg MCHC (31.0-35.0) g/dl RDW (11.0-16.0) % Plt Count (160-400) X10*3/uL MPV (9.4-12.3) fL Immature Gran % (Auto) (0.0-0.4) % Neut % (Auto) (45-73) % Lymph % (Auto) (20-40) % Thomas % (Auto) (2-11) % Eos % (Auto) (0-4) % Baso % (Auto) (0-2) % Lymph # (Auto) (1.2-4.9) X10*3/uL Thomas # (Auto) (0.1-1.2) X10*3/uL Eos # (Auto) (0.0-0.4) X10*3/uL Baso # (Auto) (0.0-0.2) X10*3/uL Abs Immat Gran (auto) (0.00-0.03) X10*3/uL Absolute Neuts (auto) (2.0-8.3) x10*3/uL Absolute Nucleated RBC (0.0-0.012) X10*3/uL Nucleated RBC % (auto) (0.0-0.2) /100WBC PT (11.1-13.3) SEC INR (0.9-1.1) D-Dimer High Sensitivty NG/ML Sodium (135-145) mmol/L Potassium (3.3-5.1) mmol/L Chloride (96-108) mmol/L Carbon Dioxide (22-29) mmol/L Anion Gap (12-20) BUN (9-16) mg/dL Creatinine (0.5-1.4) mg/dL Estim Creat Clear Calc Estimated GFR Random Glucose (60-115) mg/dL Calcium (8.4-10.2) mg/dL Total Bilirubin (0.0-1.0) mg/dL AST (5-31) U/L ALT (0-31) U/L Alkaline Phosphatase (39-117) U/L Troponin I High Sens < 2.7 < 2.7 (<3.5-17.0) ng/L B-Natriuretic Peptide < 10 (<100) pg/mL Total Protein (6.5-8.0) g/dL Albumin (3.5-5.0) g/dL Independent Interpretation I performed an independent interpretation of an: EKG Interpretation: Rate: 107 Rhythm:? Sinus tachycardia [place]:? Normal Normal P waves.? Normal ADRIANA.?? Normal QRS complex.?? ST T wave :??No ST elevation, no ST depression, qTC: 459 prior studies:? 2021, no significant change The study has been interpreted contemporaneously by me. Radiology Impression Discussion of test interpretation with radiology: I have reviewed the radiologist's reading. Radiologist Impression: CT/CT angio chest PE protocol IMPRESSION: Limited from patient body habitus. Given this there is no convincing evidence of a filling defect to suggest a pulmonary embolism. ? No significant infiltrate or effusion External Record Review External record reviewed: Prior outpatient labs Critical Care Time Critical Care Time Critical Care Time: Yes Total Critical Care Time: 48 Attestation: I personally attest to this critical care time spent taking care of the patient exclusive of all other billable procedures was approximately 78 minutes including initial evaluation of patient, ordering tests, x-ray interpretation, EKG interpretation, medical consultation, documentation, re-evaluation. Discharge Plan Discharge Clinical Impression: Chest pain Patient Disposition: Home, Self-Care Instructions: Chest Pain (ED) Additional Instructions: As discussed, your blood work today was overall normal, anemia is consistent with her baseline. Cardiac enzymes were normal x2. There is no evidence of CHF exacerbation. Chest x-ray was normal. CT of your chest did not reveal evidence of a pulmonary embolism. You have been without your Eliquis, I have sent a prescription for refill to your pharmacy. Please follow-up with your primary care provider Within 1-3 days. You may return back to the emergency department any new or worsening symptoms or concerns. You can take Tylenol 500 mg, 2 tablets (1,000mg) every 4-6 hours as needed for pain, but not to exceed 3 doses daily (3,000mg).? Prescriptions: New Eliquis 5 mg tablet 5 mg PO BID 30 Days Qty: 60 0RF No Action risperidone [Risperdal] 1 mg Tablet 1 mg PO BEDTIME albuterol sulfate [Ventolin HFA] 90 mcg/actuation Hfa Aerosol Inhaler 2 puff inhalation RQ4H PRN (Reason: Shortness Of Breath) Qty: 6.7 0RF montelukast 10 mg Tablet 10 mg PO BEDTIME trazodone 100 mg Tablet 200 mg PO BEDTIME diltiazem HCl 120 mg capsule,extended release 24hr 1 cap PO DAILY escitalopram oxalate 20 mg tablet 40 mg PO DAILY Patient Comments: Unsure of dosage Rx Instructions: patient states she was recently increased to 40 mg /day lorazepam [Ativan] 1 mg tablet 2 mg PO DAILY PRN (Reason: anxiety) warfarin 3 mg tablet 8 mg PO DAILY@1800 Rx Instructions: patient was supposed to increase to 8 mg daily, but last dose she actually had was for 5 mg on 11/07/21 pantoprazole 40 mg tablet,delayed release (DR/EC) 1 tab PO BEDTIME insulin aspart U-100 [Novolog FlexPen U-100 Insulin] 100 unit/mL (3 mL) insulin pen 2 - 16 unit subcut TID Rx Instructions: per sliding scale Lantus Solostar U-100 Insulin 100 unit/mL (3 mL) insulin pen 15 unit subcut BEDTIME cetirizine 10 mg Tablet 10 mg PO BEDTIME Trelegy Ellipta 200-62.5-25 mcg blister with device 1 inh inhalation DAILY 30 Days Qty: 1 6RF spironolactone 25 mg tablet PO diazepam 2 mg tablet PO risperidone 2 mg tablet PO buspirone 15 mg tablet 15 mg PO Referrals: Physician,Unknown J [Primary Care Provider] -
[2023-05-16 15:30] VITALS: BP 127/50; PULSE 107; RESP 20; TEMP 36.6; O2SAT 99; BMI 40.0
[2023-05-16 20:00] VITALS: BP 106/56; PULSE 96; RESP 23; TEMP 36.9; O2SAT 99
[2023-05-16 20:25] LABS: MANUAL DIFF FLAG NO
[2023-05-16 20:33] LABS: Basophils Percent Auto 0.2 % (0-2); Eosinophils Percent Auto 0.2 % (0-4); Hematocrit 30.7 % (37.0-47.0); Hemoglobin 9.8 g/dl (12.0-16.0); Imm Gran Abs Auto 0.01 X10*3/uL (0.00-0.03); Imm Gran Pct Auto 0.2 % (0.0-0.4); Lymphocytes Absolute Auto 1.4 X10*3/uL (1.2-4.9); Lymphocytes Percent Auto 24.5 % (20-40); Mean Corpuscular HGB Conc 31.9 g/dl (31.0-35.0); Mean Corpuscular Hemoglobin 26.1 pg (27.0-33.0); Mean Corpuscular Volume 81.6 fL (80.0-98.0); Mean Platelet Volume 11.6 fL (9.4-12.3); Monocytes Absolute Auto 0.4 X10*3/uL (0.1-1.2); Neutrophils Absolute Auto 3.9 x10*3/uL (2.0-8.3); Neutrophils Percent Auto 67.9 % (45-73); Platelet Count 233 X10*3/uL (160-400); Red Blood Count 3.76 X10*6/uL (4.20-5.50); White Blood Count 5.7 X10*3/uL (4.8-10.8)
[2023-05-16 20:38] LABS: Prothrombin Time 12.2 SEC (11.1-13.3)
[2023-05-16 20:44] LABS: Alanine Aminotransferase 15 U/L (0-31); Albumin Level 4.1 g/dL (3.5-5.0); Alkaline Phosphatase 102 U/L (39-117); Anion Gap 17 (12-20); Aspartate Amino Transferase 14 U/L (5-31); Bilirubin Total 0.4 mg/dL (0.0-1.0); Blood Urea Nitrogen 6 mg/dL (9-16); Calcium 9.8 mg/dL (8.4-10.2); Carbon Dioxide 18 mmol/L (22-29); Chloride 107 mmol/L (96-108); Estimated Glomerular Filt Rate > 60; Glucose Random 94 mg/dL (60-115); Potassium 4.1 mmol/L (3.3-5.1); Sodium 138 mmol/L (135-145); Total Protein 6.8 g/dL (6.5-8.0)
[2023-05-16 20:48] LABS: B Type Natriuretic Peptide < 10 pg/mL (<100)
[2023-05-16 20:52] LABS: Troponin-I High Sensitivity < 2.7 ng/L (<3.5-17.0)
[2023-05-16 20:56] LABS: D Dimer High Sensitivity < 150 NG/ML
[2023-05-16] MEDS: ondansetron HCL 4 MG/2 ML VIAL IVPUSH ×2 (21:28→22:22)
[2023-05-16] MEDS: diphenhydrAMINE HCL 50 MG/ML VIAL IVPUSH (21:28)
[2023-05-16] MEDS: methylPREDNISolone Sod Succ 125 MG/2 ML VIAL IVPUSH (21:28)
--- NOTE | 2023-05-16 21:35 | PC.NURSE ---
pt medicated before ct, and ct will be in one hour at 2230. rad made aware.
[2023-05-16 21:36] VITALS: BP 101/65; PULSE 97; RESP 20; O2SAT 99
--- NOTE | 2023-05-16 21:52 | PC.NURSE ---
pt states she might be having a reaction to the solumederal. she is feeling swelling around her eyes with itching and chest feels different. provider made aware, vital recorded and stable. sat 100% on room air. no airway difficulty noted, pt talking in full sentences. order to monitor pt at this time per [facility] certified medical coder.
[2023-05-16 21:53] VITALS: BP 119/72; PULSE 97; RESP 18; TEMP 36.2; O2SAT 98
[2023-05-16 22:00] VITALS: BP 114/67; PULSE 92; RESP 16; O2SAT 96
--- NOTE | 2023-05-16 22:45 | PC.NURSE ---
no increase in eye swelling, but still feels itchy. no s/s of resp distress sat 96-100% on room air. pt taken to ct.
[2023-05-16 23:33] VITALS: BP 116/61; PULSE 97; RESP 15; TEMP 36.8; O2SAT 94
--- NOTE | 2023-05-16 23:34 | PC.NURSE ---
Took over care from RAFI Acevedo at 23:00 pt a&o, no sign respiratory distress, pt able to speak in full sentence, pt on bed side monitor. No sign of distress pt requesting food and a drink, We provided a sandwich and a drink. Notified PA Chase of pt current condition. Will continue to monitor.
[2023-05-17] MEDS: diphenhydrAMINE HCL 50 MG/ML VIAL 12.5 MG IVPUSH (01:12)
[2023-05-17] MEDS: 0.9 % Sodium Chloride 1,000 ML 999 ML IV (01:12)
--- NOTE | 2023-05-17 01:17 | PC.NURSE ---
pt a&o, no sob or chest pain, Medicated per Mar. Will continue to monitor.
[2023-05-17 01:37] LABS: Troponin-I High Sensitivity < 2.7 ng/L (<3.5-17.0)
--- NOTE | 2023-05-17 01:55 | PC.NURSE ---
Reviewed discharge instruction with pt, pt verbalized understanding, 0/10 pain, disconnected port. Clean, dry dressing applied, no sign of distress. Will continue to monitor.
== END 2023-05-17 01:57 | disposition home or self-care (01) ==
PROVIDERS: Nurse Practitioner Family; Registered Nurse Emergency; Emergency Provider Emergency Medicine
DX: R07.89 Other chest pain (principal); R06.02 Shortness of breath; Z86.718 Personal history of other venous thrombosis and embolism; Z79.01 Long term (current) use of anticoagulants; Z79.899 Other long term (current) drug therapy; Z87.891 Personal history of nicotine dependence
CPT/HCPCS: 36415; 71046; 71275; 80053; 83880; 84484; 85025; 85379; 85610; 93005; 96374; 96375; 96376; 99284; 99285; J1200; J2405; J2930

== ENCOUNTER → 2023-05-16 15:17 | Outpatient (BNV) | payer MEDICARE, MEDICAID, SELFPAY | PROVIDERS: Emergency Provider Emergency Medicine; Visit Provider Internal Medicine Cardiovascular Disease | DX: R07.9 Chest pain, unspecified (principal) | CPT/HCPCS: 93010 ==

== ENCOUNTER 2023-06-15 15:15 | Emergency (ER) | payer MEDICARE, SELFPAY ==
--- NOTE | ~2023-06-15 | XR_ITS ---
EXAMINATION: XR CHEST CLINICAL INFORMATION: Chest pain, shortness of breath COMPARISON: CT pulmonary angiogram 05/16/2023 TECHNIQUE: 2 views of the chest were obtained. FINDINGS: Left-sided Port-A-Cath with catheter tip overlying the expected location of the right atrium. The heart and mediastinal borders are normal. No focal consolidation. No pleural effusion. No pneumothorax. XR/XR chest 2V IMPRESSION: Unremarkable examination.
--- NOTE | ~2023-06-15 | CT_ITS ---
EXAMINATION: CT ABDOMEN AND PELVIS WITH AND WITHOUT CONTRAST: CT GI BLEEDING STUDY CLINICAL INFORMATION: Reason for Exam GIB, abdominal pain. COMPARISON: 01/12/2021. TECHNIQUE: Multidetector volumetric imaging was performed from the lung bases to the pubic symphysis before and after the administration of: Intravenous contrast: 80 mL Omnipaque 350 No contrast reaction reported MIP coronal, sagittal and coronal reformatted images were obtained on the technologist workstation. This CT examination was performed using dose optimization techniques as appropriate, variously including the following: *Automated exposure control *Adjustment of mA and/or kV according to patient size (this includes techniques or standardized protocols for targeted exams where dose is matched to indication/reason for exam; i.e. extremities or head) *Use of iterative reconstruction technique Total exam dose-length product 2099 mGy-cm FINDINGS: STOMACH: Small hiatal hernia. No abnormal wall thickening or mass. No intraluminal contrast accumulation to suggest hemorrhage. SMALL BOWEL: No abnormal wall thickening or dilation. No intraluminal contrast accumulation to suggest hemorrhage. COLON: No intraluminal contrast accumulation to suggest hemorrhage. No colonic wall thickening or pericolonic inflammatory changes. Moderate volume of well-formed stool throughout the colon. No significant diverticulosis. Normal appendix. LUNG BASES: No nodules, mass, or focal consolidation. PLEURA: No pleural effusion. LIVER, GALLBLADDER, AND BILIARY TREE: The liver is normal in size, shape, and attenuation. No focal hepatic lesion or biliary ductal dilatation is present. The gallbladder is unremarkable with no evidence of radiopaque gallstones, gallbladder wall thickening, or obvious pericholecystic inflammatory changes. PANCREAS: Normal; no mass or surrounding fluid. SPLEEN: Borderline enlarged, measuring 14 cm in diameter. ADRENAL GLANDS: Normal; no mass. KIDNEYS AND URETERS: The kidneys are normal in size, shape, and attenuation. No hydronephrosis, hydroureter, or calculi. ABDOMINAL WALL: No hernia seen. LYMPHOVASCULAR STRUCTURES: No lymphadenopathy. The aorta is normal in caliber. And IVC filter appears appropriately positioned. BLADDER: No focal mass or wall thickening seen. No bladder calculi. PELVIC VISCERA: Uterus is not seen, likely surgically absent. No adnexal lesions are identified. OSSEOUS STRUCTURES: There is mild right convex rotoscoliosis. Bilateral pars defects are present at L5-S1. There is grade 1 anterolisthesis of L5 on S1 by 2 mm . Mild multilevel degenerative disc disease in lower lumbar spine. No acute osseous findings. CT/CT gi bleed abd pel wo/w IVcon IMPRESSION: 1. No acute abnormalities are identified in the abdomen and pelvis. No evidence of active gastrointestinal hemorrhage. Moderate volume of stool throughout the colon. 2. Small hiatal hernia. 3. Borderline splenomegaly. 4. Pars defects at L5-S1 with grade 1 anterolisthesis of L5 on S1.
[2023-06-15 15:16] VITALS: BP 139/61; PULSE 94; RESP 18; TEMP 36.8; O2SAT 100; BMI 35.0
--- NOTE | 2023-06-15 15:16 | ED.ABDPAIN ---
HPI - Abdominal Pain General Chief Complaint: GI Bleed Stated Complaint: abd pain Time Seen by Provider: 06/15/23 19:02 Source: patient Mode of arrival: ambulatory Limitations: no limitations History of Present Illness HPI narrative: 52-year-old female with past medical history of pulmonary embolism on eliquis, DVT, factor 5 Leiden,? atrial fibrillation,CHF, asthma, depression, anemia here with complaints of SOB/chest pain x 4 days and lower abdominal pain with BRB per rectum since last evening. Patient reports she has had intermittent CP/SOB x 4 days which is felt at rest and with movement. No associated cough, fever, uri symptoms. Has been compliant with her home medications including eliquis with no missed doses. Last night developed lower abdominal pain with 3-4 episodes of maroon stool per patient. No vomiting. +nausea. Per patient has had GIB before but cannot recall her last colonoscopy. Related Data Home Medications Medication Instructions Recorded Confirmed montelukast 10 mg tablet 10 mg PO BEDTIME 09/03/20 11/09/21 trazodone 100 mg tablet 200 mg PO BEDTIME 09/03/20 11/09/21 risperidone 1 mg tablet (Risperdal) 1 mg PO BEDTIME 05/13/21 11/09/21 diltiazem HCl 120 mg 1 cap PO DAILY 07/09/21 11/09/21 capsule,extended release 24 hr escitalopram oxalate 20 mg tablet 40 mg PO DAILY 07/09/21 11/09/21 cetirizine 10 mg tablet 10 mg PO BEDTIME 11/09/21 11/09/21 insulin aspart U-100 100 unit/mL 2 - 16 unit subcut TID 11/09/21 11/09/21 (3 mL) subcutaneous pen (Novolog FlexPen U-100 Insulin aspart) insulin glargine 100 unit/mL (3 15 unit subcut BEDTIME 11/09/21 11/09/21 mL) subcutaneous pen (Lantus Solostar U-100 Insulin) lorazepam 1 mg tablet (Ativan) 2 mg PO DAILY PRN anxiety 11/09/21 11/09/21 pantoprazole 40 mg tablet,delayed 1 tab PO BEDTIME 11/09/21 11/09/21 release warfarin 3 mg tablet 8 mg PO DAILY@1800 11/09/21 11/09/21 buspirone 15 mg tablet 15 mg PO 03/19/22 diazepam 2 mg tablet mg PO 06/14/22 risperidone 2 mg tablet mg PO 06/14/22 spironolactone 25 mg tablet mg PO 06/14/22 Previous Rx's Medication Instructions Recorded albuterol sulfate 90 mcg/actuation 2 puff inhalation RQ4H PRN 05/17/21 aerosol inhaler (Ventolin HFA) Shortness Of Breath #6.7 grams fluticasone fur. 200 mcg-umeclid 1 inh inhalation DAILY 30 days #1 08/27/21 62.5 mcg-vilant 25 mcg ea inhalat.powder (Trelegy Ellipta) apixaban 5 mg tablet (Eliquis) 5 mg PO BID 30 days #60 tabs 05/17/23 Allergies Allergy/AdvReac Type Severity Reaction Status Date / Time azithromycin Allergy Intermediate ITCHING Verified 06/15/23 15:22 [From ZITHROMAX Z-XANDER] amoxicillin [AMOXICILLIN] Allergy Unknown UNKNOWN, Verified 06/15/23 15:22 hives, swelling budesonide [From SYMBICORT] Allergy Unknown UNKNOWN Verified 06/15/23 15:22 cefpodoxime [From VANTIN] Allergy Unknown UNKNOWN Verified 06/15/23 15:22 cefuroxime [From CEFTIN] Allergy Unknown UNKNOWN Verified 06/15/23 15:22 Cephalosporins Allergy Unknown UNKNOWN Verified 06/15/23 15:22 [CEPHALOSPORINS] ciprofloxacin [From CIPRO] Allergy Unknown UNKNOWN Verified 06/15/23 15:22 diphtheria,pertussis Allergy Unknown Unknown Verified 06/15/23 15:22 (acellular),te [Adacel(Tdap Adolesn/Adult)(PF)] erythromycin base Allergy Unknown UNKNOWN Verified 06/15/23 15:22 [ERYTHROMYCIN BASE] fluticasone [Advair Diskus] Allergy Unknown Unknown Verified 06/15/23 15:22 formoterol [From SYMBICORT] Allergy Unknown UNKNOWN Verified 06/15/23 15:22 hydrocodone [From VICODIN] Allergy Unknown unknown Verified 06/15/23 15:22 Iodinated Contrast Media Allergy Unknown UNKNOWN Verified 06/15/23 15:22 [CONTRAST, IV] levofloxacin [From LEVAQUIN] Allergy Unknown UNKNOWN Verified 06/15/23 15:22 penicillin G Allergy Unknown Unknown Verified 06/15/23 15:22 penicillin V Allergy Unknown Unknown Verified 06/15/23 15:22 Penicillins [PENICILLINS] Allergy Unknown UNKNOWN Verified 06/15/23 15:22 salmeterol [Advair Diskus] Allergy Unknown Unknown Verified 06/15/23 15:22 sertraline [From ZOLOFT] Allergy Unknown SUICIDAL Verified 06/15/23 15:22 Sulfa (Sulfonamide Allergy Unknown hives Verified 06/15/23 15:22 Antibiotics) tetanus and diphtheria Allergy Unknown UNKNOWN Verified 06/15/23 15:22 toxoids [TETANUS & DIPHTHERIA TOXOIDS] ertapenem Allergy Swelling Verified 06/15/23 15:22 methylprednisolone Allergy Eye Verified 06/15/23 15:22 [From Solu-Medrol] Swelling ketorolac [From TORADOL] AdvReac Mild ITCHING Verified 06/15/23 15:22 iron AdvReac Anaphylaxis Verified 06/15/23 15:22 Ceftin Allergy Unknown Unknown Uncoded 03/19/22 16:06 Symbicort Allergy Unknown Unknown Uncoded 03/19/22 16:06 Tetanus Allergy Unknown Unknown Uncoded 03/19/22 16:06 Erythromycin Allergy Unknown Uncoded 03/19/22 16:06 Review of Systems Review of Systems Yes all other systems are reviewed and are negative Constitutional: Reports no additional constitutional complaints, Denies body ache(s), Denies chills, Denies fever(s), Denies headache(s) and Denies weakness Eyes: Reports no additional eye complaints and Denies change in vision Reports system reviewed and no additional complaints, except as documented, Denies dizziness, Denies headache(s), Denies nasal congestion, Denies nasal discharge and Denies neck pain Cardiovascular: Reports no additional cardiovascular complaints, Reports chest pain, Denies leg edema and Reports dyspnea Respiratory: Reports no additional respiratory complaints, Denies cough and Reports dyspnea Gastrointestinal: Reports no additional gastrointestinal complaints, Reports abdominal pain, Denies melena, Reports hematochezia, Denies coffee ground emesis, Denies diarrhea, Reports nausea and Denies vomiting Genitourinary: Reports no additional female genitourinary complaints and Denies urinary incontinence Musculoskeletal: Reports no additional musculoskeletal complaints, Denies back pain, Denies arthralgias, Denies joint swelling, Denies neck pain, Denies numbness and Denies tingling Skin/Breast: Reports system reviewed and no additional complaints, except as docu and Denies rash Reports system reviewed and no additional complaints, except as documented, Denies dizziness, Denies headache(s), Denies numbness, Denies tingling and Denies weakness PMFSH Past Medical History Attestation statement: The following information was validated with the patient. Source: old records reviewed and nursing notes reviewed Medical History Anxiety Anxiety Asthma Atrial fibrillation CHF (congestive heart failure) Depression DVT (deep venous thrombosis) Hypertension Irritable bowel Morbid obesity Pulmonary embolism Surgical History H/O adenoidectomy History of hysterectomy History of tonsillectomy Hx of breast reduction, elective Social History Social History Household Members: Spouse and Children Household Members Other:: 3 Housing: House Housing Other:: duplex Do you presently have visiting nurse or other home services: No Alcohol intake: never Patient Tobacco Use Status: Former Tobacco user Smoked in Last 30 Days: No e-Cigarette/Vaping Use: Never Used Second Hand Smoke Exposure: No Use of substances other than those prescribed or required for medical reasons: No Substance Use Type: Marijuana Advance Directives: Yes Advance Directives on File: Yes Advance Directives Date on File: 09/06/20 Patient : No service: No Current occupational status: unemployed and disabled Sexual orientation: Straight/Heterosexual Physical Exam ED Vital Signs: Vital Signs - 24 hr 06/15/23 15:16 06/15/23 17:49 06/15/23 19:58 Temperature 98.2 F 97.0 F Pulse Rate 94 94 Respiratory Rate 18 20 18 Blood Pressure 139/61 139/79 Pulse Oximetry 100 98 Oxygen Delivery Method Room Air Room Air 06/15/23 20:00 06/15/23 22:00 Temperature 98.2 F 98.6 F Pulse Rate 89 90 Respiratory Rate 18 16 Blood Pressure 120/70 137/56 L Pulse Oximetry 100 100 Oxygen Delivery Method Room Air Room Air BMI result Body Mass Index 35.0 Const General: cooperative, healthy appearing, comfortable and no acute distress Orientation/consciousness: patient oriented x3 Limitations: no limitations HENMT Head: Yes normal to inspection Ears: hearing grossly normal bilaterally Eyes General: appearance normal, both eyes and all related structures Pupils: Equal, round and reactive pupils present Neck Neck: Yes normal visual inspection and Yes full ROM Chest Chest palpation & inspection: normal inspection of the chest Resp Effort & Inspection: normal respiratory effort Auscultation: clear to auscultation bilaterally Cardio Rate: regular rate Rhythm: regular rhythm Peripheral pulses: Peripheral pulses 2+ throughout 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 Inspection: Yes normal to inspection Palpation (GI): Soft to palpation, Tenderness to palpation present (GI) in the LLQ and in the RLQ; with no rebound tenderness and no guarding Auscultation: normal bowel sounds Rectal Exam - Female: visual inspection normal and normal sphincter tone General: Yes no CVA tenderness Back/Spine/Pelvis Back: no CVA tenderness Thoracic/Lumbar Spine: thoracic and lumbar spine normal to inspection Skin General skin exam: no rashes or lesions noted Neuro General: patient oriented x3 and moves all extremities Cranial nerves: Yes Equal, round and reactive pupils present Cognition (Neuro): normal cognition Extrem General: Yes normal to inspection, Yes no pedal edema and Yes no calf tenderness Course Course Course Narrative: This is an RME: Additional HPI, ROS, PE not included below will be deferred to primary provider. Patient is a 52-year-old female who presents emergency department for evaluation of shortness of breath, Mid chest pain described as pressure with onset yesterday. Today with severe lower abdominal pain, maroon blood per rectum reportedly pouring out , nausea, vomiting, severe anemia , hx hemorrhoidectomy April 11. Reports hx Factor V Leiden. Plan: labs, U/A, EKG, CXR Reevaluation(s) Reevaluation #1: Labs show anemia which is at baseline. Stool is brown. GI bleed study is negative for any acute bleeding or acute abdominal pathology. Patient does have moderate constipation and so I recommended she increase her bowel regimen which we discussed at the bedside. I have low concern for active GI bleed at this time. Patient's EKG is nonischemic. Her troponin is negative. She has had symptoms for several days. I doubt ACS. See further differential an MDM. Recommend patient follow up outpatient with her primary providers. Reviewed worrisome signs and symptoms of when to return to the emergency room. Comfortable plan for discharge home. Medical Decision Making Medical Decision Making MDM Narrative: 52-year-old female with past medical history of pulmonary embolism on eliquis, DVT, factor 5 Leiden,? atrial fibrillation,CHF, asthma, depression, anemia here with complaints of SOB/chest pain x 4 days and lower abdominal pain with BRB per rectum since last evening. Patient reports she has had intermittent CP/SOB x 4 days which is felt at rest and with movement. No associated cough, fever, uri symptoms. Has been compliant with her home medications including eliquis with no missed doses. Last night developed lower abdominal pain with 3-4 episodes of maroon stool per patient. No vomiting. +nausea. Per patient has had GIB before but cannot recall her last colonoscopy. On exam LS CTA, VSS. Abdomen with mild TTP with lower quadrants with no rebound or guarding. Stool is brown Will obtain labs, EKG, CXR, COVID testing, CT GIB study (patient needs to be pre-medicated with solumedrol/benadryl before). Differential Diagnosis Differential Diagnoses: The differential diagnosis associated with the presentation includes GIB, divert, hemorrhoids ACS-low concern w/symptoms x days with negative troponin, nonischemic EKG, PE-less likely as patient is compliant with her AC therapy with no missed doses, aortic dissection-less likely gradial onset Admission/Observation Consideration of admission/observation: Escalation of care including admission/observation considered See discussion in course of care Lab Data MDM Lab Attestation statement: I reviewed the patient's lab results. Anemia at baseline 06/15/23 20:45 06/15/23 20:45 Labs: Lab Results 06/15/23 06/15/23 06/15/23 Range/Units 15:25 15:43 19:20 WBC (4.8-10.8) X10*3/uL RBC (4.20-5.50) X10*6/uL Hgb (12.0-16.0) g/dl Hct (37.0-47.0) % MCV (80.0-98.0) fL MCH (27.0-33.0) pg MCHC (31.0-35.0) g/dl RDW (11.0-16.0) % Plt Count (160-400) X10*3/uL MPV (9.4-12.3) fL Immature Gran % (Auto) (0.0-0.4) % Neut % (Auto) (45-73) % Lymph % (Auto) (20-40) % Grayson % (Auto) (2-11) % Eos % (Auto) (0-4) % Baso % (Auto) (0-2) % Lymph # (Auto) (1.2-4.9) X10*3/uL Grayson # (Auto) (0.1-1.2) X10*3/uL Eos # (Auto) (0.0-0.4) X10*3/uL Baso # (Auto) (0.0-0.2) X10*3/uL Abs Immat Gran (auto) (0.00-0.03) X10*3/uL Absolute Neuts (auto) (2.0-8.3) x10*3/uL Absolute Nucleated RBC (0.0-0.012) X10*3/uL Nucleated RBC % (auto) (0.0-0.2) /100WBC PT (11.1-13.3) SEC INR (0.9-1.1) Sodium (135-145) mmol/L Potassium (3.3-5.1) mmol/L Chloride (96-108) mmol/L Carbon Dioxide (22-29) mmol/L Anion Gap (12-20) BUN (9-16) mg/dL Creatinine (0.5-1.4) mg/dL Estim Creat Clear Calc Estimated GFR Random Glucose (60-115) mg/dL Calcium (8.4-10.2) mg/dL Total Bilirubin (0.0-1.0) mg/dL AST (5-31) U/L ALT (0-31) U/L Alkaline Phosphatase (39-117) U/L Troponin I High Sens (<3.5-17.0) ng/L Total Protein (6.5-8.0) g/dL Albumin (3.5-5.0) g/dL Lipase (8-78) U/L Urine Color Yellow Urine Appearance Clear Urine pH 8.5 (5.0-9.0) Ur Specific Outlook 1.010 (1.005-1.025) Urine Protein Negative (Neg-Trace) mg/dL Urine Glucose (UA) Negative (Negative) mg/dL Urine Ketones Negative (Negative) mg/dL Urine Blood Negative (Negative) Urine Nitrite Negative (Negative) Ur Leukocyte Esterase Negative (Negative) Stool Occult Blood NEGATIVE (NEGATIVE) COVID-19 (ELYSE) Negative (Negative) COVID-19 Clin Com See Note 06/15/23 06/15/23 06/15/23 Range/Units 20:45 20:45 20:45 WBC 4.9 (4.8-10.8) X10*3/uL RBC 3.38 L (4.20-5.50) X10*6/uL Hgb 8.3 L (12.0-16.0) g/dl Hct 27.5 L (37.0-47.0) % MCV 81.4 (80.0-98.0) fL MCH 24.6 L (27.0-33.0) pg MCHC 30.2 L (31.0-35.0) g/dl RDW 15.5 (11.0-16.0) % Plt Count 183 (160-400) X10*3/uL MPV 11.6 (9.4-12.3) fL Immature Gran % (Auto) 0.4 (0.0-0.4) % Neut % (Auto) 62.6 (45-73) % Lymph % (Auto) 28.4 (20-40) % Grayson % (Auto) 8.2 (2-11) % Eos % (Auto) 0.0 (0-4) % Baso % (Auto) 0.4 (0-2) % Lymph # (Auto) 1.4 (1.2-4.9) X10*3/uL Grayson # (Auto) 0.4 (0.1-1.2) X10*3/uL Eos # (Auto) 0.0 (0.0-0.4) X10*3/uL Baso # (Auto) 0.0 (0.0-0.2) X10*3/uL Abs Immat Gran (auto) 0.02 (0.00-0.03) X10*3/uL Absolute Neuts (auto) 3.1 (2.0-8.3) x10*3/uL Absolute Nucleated RBC 0.000 (0.0-0.012) X10*3/uL Nucleated RBC % (auto) 0.0 (0.0-0.2) /100WBC PT (11.1-13.3) SEC INR (0.9-1.1) Sodium 140 (135-145) mmol/L Potassium 4.1 (3.3-5.1) mmol/L Chloride 112 H (96-108) mmol/L Carbon Dioxide 22 (22-29) mmol/L Anion Gap 10 L (12-20) BUN 10 (9-16) mg/dL Creatinine 0.72 (0.5-1.4) mg/dL Estim Creat Clear Calc 99.5 Estimated GFR > 60 Random Glucose 87 (60-115) mg/dL Calcium 9.0 D (8.4-10.2) mg/dL Total Bilirubin 0.2 (0.0-1.0) mg/dL AST 14 (5-31) U/L ALT 14 (0-31) U/L Alkaline Phosphatase 70 (39-117) U/L Troponin I High Sens < 2.7 (<3.5-17.0) ng/L Total Protein 5.9 L (6.5-8.0) g/dL Albumin 3.6 (3.5-5.0) g/dL Lipase 19 (8-78) U/L Urine Color Urine Appearance Urine pH (5.0-9.0) Ur Specific Outlook (1.005-1.025) Urine Protein (Neg-Trace) mg/dL Urine Glucose (UA) (Negative) mg/dL Urine Ketones (Negative) mg/dL Urine Blood (Negative) Urine Nitrite (Negative) Ur Leukocyte Esterase (Negative) Stool Occult Blood (NEGATIVE) COVID-19 (ELYSE) (Negative) COVID-19 Clin Com 06/15/23 Range/Units 20:45 WBC (4.8-10.8) X10*3/uL RBC (4.20-5.50) X10*6/uL Hgb (12.0-16.0) g/dl Hct (37.0-47.0) % MCV (80.0-98.0) fL MCH (27.0-33.0) pg MCHC (31.0-35.0) g/dl RDW (11.0-16.0) % Plt Count (160-400) X10*3/uL MPV (9.4-12.3) fL Immature Gran % (Auto) (0.0-0.4) % Neut % (Auto) (45-73) % Lymph % (Auto) (20-40) % Grayson % (Auto) (2-11) % Eos % (Auto) (0-4) % Baso % (Auto) (0-2) % Lymph # (Auto) (1.2-4.9) X10*3/uL Grayson # (Auto) (0.1-1.2) X10*3/uL Eos # (Auto) (0.0-0.4) X10*3/uL Baso # (Auto) (0.0-0.2) X10*3/uL Abs Immat Gran (auto) (0.00-0.03) X10*3/uL Absolute Neuts (auto) (2.0-8.3) x10*3/uL Absolute Nucleated RBC (0.0-0.012) X10*3/uL Nucleated RBC % (auto) (0.0-0.2) /100WBC PT 12.4 (11.1-13.3) SEC INR 1.0 (0.9-1.1) Sodium (135-145) mmol/L Potassium (3.3-5.1) mmol/L Chloride (96-108) mmol/L Carbon Dioxide (22-29) mmol/L Anion Gap (12-20) BUN (9-16) mg/dL Creatinine (0.5-1.4) mg/dL Estim Creat Clear Calc Estimated GFR Random Glucose (60-115) mg/dL Calcium (8.4-10.2) mg/dL Total Bilirubin (0.0-1.0) mg/dL AST (5-31) U/L ALT (0-31) U/L Alkaline Phosphatase (39-117) U/L Troponin I High Sens (<3.5-17.0) ng/L Total Protein (6.5-8.0) g/dL Albumin (3.5-5.0) g/dL Lipase (8-78) U/L Urine Color Urine Appearance Urine pH (5.0-9.0) Ur Specific Outlook (1.005-1.025) Urine Protein (Neg-Trace) mg/dL Urine Glucose (UA) (Negative) mg/dL Urine Ketones (Negative) mg/dL Urine Blood (Negative) Urine Nitrite (Negative) Ur Leukocyte Esterase (Negative) Stool Occult Blood (NEGATIVE) COVID-19 (ELYSE) (Negative) COVID-19 Clin Com Independent Interpretation I performed an independent interpretation of an: EKG, Plain X-Ray and CT Scan Interpretation: I independently viewed the chest x-ray /CT GIB study and agree with radiologist's report I indepedentely reviewed EKG which shows a rate in the 80s, normal IA, normal QRS, normal QT-the rate measured on the ekg is incorrect Radiology Impression Discussion of test interpretation with radiology: I have reviewed the radiologist's reading. Radiologist Impression: [address] [address] XRay Report Signed Patient: Samara Taylor MR#: [id number] : 1970 Acct:[id number] Age/Sex: 52 / F ADM Date: 06/15/23 Loc: .ED Attending Dr: Ordering Physician: Lea Collins CNP Date of Service: 06/15/23 Procedure(s): XR chest 2V Accession Number(s): [id number] cc: Lea Collins CNP~ EXAMINATION: XR CHEST CLINICAL INFORMATION: Chest pain, shortness of breath COMPARISON: CT pulmonary angiogram 05/16/2023 TECHNIQUE: 2 views of the chest were obtained. FINDINGS: Left-sided Port-A-Cath with catheter tip overlying the expected location of the right atrium. The heart and mediastinal borders are normal. No focal consolidation. No pleural effusion. No pneumothorax. XR/XR chest 2V IMPRESSION: Unremarkable examination. 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 COMPARISON: 01/12/2021. TECHNIQUE: Multidetector volumetric imaging was performed from the lung bases to the pubic symphysis before and after the administration of: Intravenous contrast: 80 mL Omnipaque 350 No contrast reaction reported MIP coronal, sagittal and coronal reformatted images were obtained on the technologist workstation. This CT examination was performed using dose optimization techniques as appropriate, variously including the following: *Automated exposure control *Adjustment of mA and/or kV according to patient size (this includes techniques or standardized protocols for targeted exams where dose is matched to indication/reason for exam; i.e. extremities or head) *Use of iterative reconstruction technique Total exam dose-length product 2099 mGy-cm FINDINGS: STOMACH: Small hiatal hernia. No abnormal wall thickening or mass.? No intraluminal contrast accumulation to suggest hemorrhage. SMALL BOWEL: No abnormal wall thickening or dilation. No intraluminal contrast accumulation to suggest hemorrhage. COLON: No intraluminal contrast accumulation to suggest hemorrhage.? No colonic wall thickening or pericolonic inflammatory changes. Moderate volume of well-formed stool throughout the colon. No significant diverticulosis.? Normal appendix. LUNG BASES: No nodules, mass, or focal consolidation. PLEURA: No pleural effusion. LIVER, GALLBLADDER, AND BILIARY TREE: The liver is normal in size, shape, and attenuation. No focal hepatic lesion or biliary ductal dilatation is present. The gallbladder is unremarkable with no evidence of radiopaque gallstones, gallbladder wall thickening, or obvious pericholecystic inflammatory changes.? PANCREAS: Normal; no mass or surrounding fluid.? SPLEEN: Borderline enlarged, measuring 14 cm in diameter.? ADRENAL GLANDS: Normal; no mass.? KIDNEYS AND URETERS: The kidneys are normal in size, shape, and attenuation. No hydronephrosis, hydroureter, or calculi. ? ABDOMINAL WALL: No hernia seen.? LYMPHOVASCULAR STRUCTURES: No lymphadenopathy. The aorta is normal in caliber. And IVC filter appears appropriately positioned. BLADDER: No focal mass or wall thickening seen.? No bladder calculi.? PELVIC VISCERA: Uterus is not seen, likely surgically absent. No adnexal lesions are identified. OSSEOUS STRUCTURES: There is mild right convex rotoscoliosis. Bilateral pars defects are present at L5-S1. There is grade 1 anterolisthesis of L5 on S1 by 2 mm . Mild multilevel degenerative disc disease in lower lumbar spine. No acute osseous findings.? CT/CT gi bleed abd pel wo/w IVcon IMPRESSION: 1.? No acute abnormalities are identified in the abdomen and pelvis. No evidence of active gastrointestinal hemorrhage. Moderate volume of stool throughout the colon. 2.? Small hiatal hernia. 3.? Borderline splenomegaly. 4.? Pars defects at L5-S1 with grade 1 anterolisthesis of L5 on S1. Medications Administered Discontinued Medications Generic Name Dose Route Start Last Admin Trade Name Freq PRN Reason Stop Dose Admin Diphenhydramine HCl 50 mg 06/15/23 21:36 06/15/23 21:56 Diphenhydramine Hcl 50 Mg/Ml Vial IVPUSH 06/15/23 21:37 50 mg ONCE ONE Administration Sodium Chloride 1,000 mls @ 999 mls/hr 06/15/23 19:13 06/15/23 21:10 Ns IV 06/15/23 20:13 Infused .Q1H1M STA Infusion Iohexol 100 ml 06/15/23 22:21 06/15/23 22:22 Iohexol 350 Mg/Ml 100 Ml Infus..Btl IV 06/15/23 22:22 80 ml ONCE ONE Administration Methylprednisolone Sodium Succinate 125 mg 06/15/23 21:36 06/15/23 21:56 Methylprednisolone Sod Succ 125 Mg/2 Ml Vial IVPUSH 06/15/23 21:37 125 mg ONCE ONE Administration Morphine Sulfate 4 mg 06/15/23 19:13 06/15/23 19:58 Morphine Sulfate 4 Mg/Ml Cartridge IVPUSH 06/15/23 19:14 4 mg ONCE ONE Administration Protocol Ondansetron HCl 4 mg 06/15/23 19:13 06/15/23 19:58 Ondansetron Hcl 4 Mg/2 Ml Vial IVPUSH 06/15/23 19:14 4 mg ONCE ONE Administration Discharge Plan Discharge Clinical Impression: Abdominal pain, Chest pain Patient Disposition: Home, Self-Care Instructions: Chest Pain (ED), Abdominal Pain (ED) Additional Instructions: Your CT scan does show moderate stool burden. There is no signs of active GI bleeding. Please continue your MiraLax, Colace, milk of magnesia. You may also consider adding senna as needed. Your labs do show mild anemia which is unchanged from her previous. Your EKG and heart enzyme levels are reassuring Please follow-up with your outpatient provider Prescriptions: No Action risperidone [Risperdal] 1 mg Tablet 1 mg PO BEDTIME albuterol sulfate [Ventolin HFA] 90 mcg/actuation Hfa Aerosol Inhaler 2 puff inhalation RQ4H PRN (Reason: Shortness Of Breath) Qty: 6.7 0RF montelukast 10 mg Tablet 10 mg PO BEDTIME trazodone 100 mg Tablet 200 mg PO BEDTIME diltiazem HCl 120 mg capsule,extended release 24hr 1 cap PO DAILY escitalopram oxalate 20 mg tablet 40 mg PO DAILY Patient Comments: Unsure of dosage Rx Instructions: patient states she was recently increased to 40 mg /day lorazepam [Ativan] 1 mg tablet 2 mg PO DAILY PRN (Reason: anxiety) warfarin 3 mg tablet 8 mg PO DAILY@1800 Rx Instructions: patient was supposed to increase to 8 mg daily, but last dose she actually had was for 5 mg on 11/07/21 pantoprazole 40 mg tablet,delayed release (DR/EC) 1 tab PO BEDTIME insulin aspart U-100 [Novolog FlexPen U-100 Insulin] 100 unit/mL (3 mL) insulin pen 2 - 16 unit subcut TID Rx Instructions: per sliding scale Lantus Solostar U-100 Insulin 100 unit/mL (3 mL) insulin pen 15 unit subcut BEDTIME cetirizine 10 mg Tablet 10 mg PO BEDTIME Eliquis 5 mg tablet 5 mg PO BID 30 Days Qty: 60 0RF Trelegy Ellipta 200-62.5-25 mcg blister with device 1 inh inhalation DAILY 30 Days Qty: 1 6RF spironolactone 25 mg tablet PO diazepam 2 mg tablet PO risperidone 2 mg tablet PO buspirone 15 mg tablet 15 mg PO Referrals: Physician,Unknown J [Primary Care Provider] - 1 week
--- NOTE | 2023-06-15 15:20 | ECG_ITS ---
Test Reason : CP/SOB Blood Pressure : / mmHG Vent. Rate : 168 BPM Atrial Rate : 182 BPM P-R Int : 168 ms QRS Dur : 050 ms QT Int : 112 ms P-R-T Axes : 046 000 216 degrees QTc Int : 187 ms Normal sinus rhythm Normal ECG When compared with ECG of 16-MAY-2023 15:22, Heart rate has decreased Referred By: Lea Collins Electronically Signed By:REYNA POWER
[2023-06-15 15:34] LABS: Appearance Urine Clear; Color Urine Yellow; Glucose Urine UA Negative (Negative); Leukocyte Esterase Urine Negative (Negative); Nitrite Urine Negative (Negative); PH 8.5 (5.0-9.0); Urine Blood Negative (Negative); Urine Ketones Negative (Negative); Urine Protein Negative (Neg-Trace)
[2023-06-15 16:14] LABS: COVID-19 Test Negative (Negative); IDNOW Serial# BCCEAD1C
[2023-06-15 17:49] VITALS: BP 139/79; PULSE 94; RESP 20; TEMP 36.1; O2SAT 98
[2023-06-15 19:49] LABS: OBS Int Ctl Valid YES; OBS1 NEGATIVE (NEGATIVE)
[2023-06-15 19:58] VITALS: RESP 18
[2023-06-15] MEDS: Morphine Sulfate 4 MG/ML CARTRIDGE IVPUSH (19:58)
[2023-06-15] MEDS: ondansetron HCL 4 MG/2 ML VIAL IVPUSH (19:58)
[2023-06-15 20:00] VITALS: BP 120/70; PULSE 89; RESP 18; TEMP 36.8; O2SAT 100
[2023-06-15] MEDS: 0.9 % Sodium Chloride 1,000 ML 999 ML IV (20:03)
[2023-06-15 20:57] LABS: MANUAL DIFF FLAG NO
[2023-06-15 21:02] LABS: Basophils Percent Auto 0.4 % (0-2); Hematocrit 27.5 % (37.0-47.0); Hemoglobin 8.3 g/dl (12.0-16.0); Imm Gran Abs Auto 0.02 X10*3/uL (0.00-0.03); Imm Gran Pct Auto 0.4 % (0.0-0.4); Lymphocytes Absolute Auto 1.4 X10*3/uL (1.2-4.9); Lymphocytes Percent Auto 28.4 % (20-40); Mean Corpuscular HGB Conc 30.2 g/dl (31.0-35.0); Mean Corpuscular Hemoglobin 24.6 pg (27.0-33.0); Mean Corpuscular Volume 81.4 fL (80.0-98.0); Mean Platelet Volume 11.6 fL (9.4-12.3); Monocytes Absolute Auto 0.4 X10*3/uL (0.1-1.2); Monocytes Percent Auto 8.2 % (2-11); Neutrophils Absolute Auto 3.1 x10*3/uL (2.0-8.3); Neutrophils Percent Auto 62.6 % (45-73); Platelet Count 183 X10*3/uL (160-400); Red Blood Count 3.38 X10*6/uL (4.20-5.50); Red Cell Distribution Width 15.5 % (11.0-16.0); White Blood Count 4.9 X10*3/uL (4.8-10.8)
[2023-06-15 21:08] LABS: Prothrombin Time 12.4 SEC (11.1-13.3)
[2023-06-15 21:16] LABS: Alanine Aminotransferase 14 U/L (0-31); Albumin Level 3.6 g/dL (3.5-5.0); Alkaline Phosphatase 70 U/L (39-117); Anion Gap 10 (12-20); Aspartate Amino Transferase 14 U/L (5-31); Bilirubin Total 0.2 mg/dL (0.0-1.0); Blood Urea Nitrogen 10 mg/dL (9-16); Carbon Dioxide 22 mmol/L (22-29); Chloride 112 mmol/L (96-108); Creatinine Clr Calc Pharmacy 99.5; Estimated Glomerular Filt Rate > 60; Glucose Random 87 mg/dL (60-115); Lipase 19 U/L (8-78); Potassium 4.1 mmol/L (3.3-5.1); Sodium 140 mmol/L (135-145); Total Protein 5.9 g/dL (6.5-8.0)
[2023-06-15 21:37] LABS: Troponin-I High Sensitivity < 2.7 ng/L (<3.5-17.0)
[2023-06-15] MEDS: methylPREDNISolone Sod Succ 125 MG/2 ML VIAL IVPUSH (21:56)
[2023-06-15] MEDS: diphenhydrAMINE HCL 50 MG/ML VIAL IVPUSH (21:56)
[2023-06-15 22:00] VITALS: BP 137/56; PULSE 90; RESP 16; TEMP 37; O2SAT 100
--- NOTE | 2023-06-15 22:11 | PC.NURSE ---
medicated with solumedrol and Benadryl prior to ct-scan
[2023-06-15] MEDS: iohexoL 350 MG/ML 100 ML INFUS..BTL IV (22:22)
--- NOTE | 2023-06-15 23:42 | PC.NURSE ---
no active bleeding at d/c
== END 2023-06-15 23:42 | disposition home or self-care (01) ==
PROVIDERS: Nurse Practitioner Family; Emergency Provider Emergency Medicine
DX: R10.30 Lower abdominal pain, unspecified (principal); R07.9 Chest pain, unspecified; K62.5 Hemorrhage of anus and rectum; K44.9 Diaphragmatic hernia without obstruction or gangrene; R06.02 Shortness of breath; Z20.822 Contact with and (suspected) exposure to COVID-19; E11.9 Type 2 diabetes mellitus without complications; I11.0 Hypertensive heart disease with heart failure; I50.9 Heart failure, unspecified; D64.9 Anemia, unspecified; D68.51 Activated protein C resistance; I48.91 Unspecified atrial fibrillation; E66.9 Obesity, unspecified; Z68.35 Body mass index [BMI] 35.0-35.9, adult; Z86.711 Personal history of pulmonary embolism; Z86.718 Personal history of other venous thrombosis and embolism; Z87.891 Personal history of nicotine dependence; Z79.01 Long term (current) use of anticoagulants; Z79.4 Long term (current) use of insulin; Z79.899 Other long term (current) drug therapy
CPT/HCPCS: 36415; 71046; 74178; 80053; 81003; 82272; 83690; 84484; 85025; 85610; 87635; 93005; 96361; 96374; 96375; 99284; 99285; J1200; J2270; J2405; J2930; Q9967

== ENCOUNTER 2023-06-16 16:08 | Emergency (ER) | payer MEDICARE, SELFPAY ==
--- NOTE | 2023-06-16 | ECG_ITS ---
Test Reason : chest pain Blood Pressure : / mmHG Vent. Rate : 077 BPM Atrial Rate : 077 BPM P-R Int : 176 ms QRS Dur : 074 ms QT Int : 380 ms P-R-T Axes : 044 004 039 degrees QTc Int : 430 ms Normal sinus rhythm Low voltage QRS Cannot rule out Anterior infarct , age undetermined Abnormal ECG When compared with ECG of 15-JUN-2023 15:32, No significant change was found Referred By: Malik Gregorio Electronically Signed By:REYNA POWER
[2023-06-16 16:28] VITALS: BP 143/78; PULSE 103; RESP 16; TEMP 36.7; O2SAT 100; BMI 41.4
--- NOTE | 2023-06-16 16:29 | ED.GENADULT ---
HPI - General Adult General Chief complaint: Allergic Reaction Stated complaint: rash on the chest, shortness of breath Time Seen by Provider: 06/16/23 18:44 Source: patient Mode of arrival: ambulatory Limitations: no limitations History of Present Illness HPI narrative: A 52-year-old female return to the emergency department for evaluation after having allergic reaction to IV contrast. Patient was seen in the emergency department yesterday for evaluation of abdominal pain and possible GI bleeding patient had a CT scan with IV contrast yesterday reportedly patient received premedication before the IV contrast yesterday, returned today for increase itching and diffuse rash at all over her body, patient feels her voice is changing with mild difficulty breathing and wheezing. No fever, no chills. Related Data Home Medications Medication Instructions Recorded Confirmed montelukast 10 mg tablet 10 mg PO BEDTIME 09/03/20 11/09/21 trazodone 100 mg tablet 200 mg PO BEDTIME 09/03/20 11/09/21 risperidone 1 mg tablet (Risperdal) 1 mg PO BEDTIME 05/13/21 11/09/21 diltiazem HCl 120 mg 1 cap PO DAILY 07/09/21 11/09/21 capsule,extended release 24 hr escitalopram oxalate 20 mg tablet 40 mg PO DAILY 07/09/21 11/09/21 cetirizine 10 mg tablet 10 mg PO BEDTIME 11/09/21 11/09/21 insulin aspart U-100 100 unit/mL 2 - 16 unit subcut TID 11/09/21 11/09/21 (3 mL) subcutaneous pen (Novolog FlexPen U-100 Insulin aspart) insulin glargine 100 unit/mL (3 15 unit subcut BEDTIME 11/09/21 11/09/21 mL) subcutaneous pen (Lantus Solostar U-100 Insulin) lorazepam 1 mg tablet (Ativan) 2 mg PO DAILY PRN anxiety 11/09/21 11/09/21 pantoprazole 40 mg tablet,delayed 1 tab PO BEDTIME 11/09/21 11/09/21 release warfarin 3 mg tablet 8 mg PO DAILY@1800 11/09/21 11/09/21 buspirone 15 mg tablet 15 mg PO 03/19/22 diazepam 2 mg tablet mg PO 06/14/22 risperidone 2 mg tablet mg PO 06/14/22 spironolactone 25 mg tablet mg PO 06/14/22 Previous Rx's Medication Instructions Recorded albuterol sulfate 90 mcg/actuation 2 puff inhalation RQ4H PRN 05/17/21 aerosol inhaler (Ventolin HFA) Shortness Of Breath #6.7 grams fluticasone fur. 200 mcg-umeclid 1 inh inhalation DAILY 30 days #1 08/27/21 62.5 mcg-vilant 25 mcg ea inhalat.powder (Trelegy Ellipta) apixaban 5 mg tablet (Eliquis) 5 mg PO BID 30 days #60 tabs 05/17/23 Allergies Allergy/AdvReac Type Severity Reaction Status Date / Time azithromycin Allergy Intermediate ITCHING Verified 06/15/23 15:22 [From ZITHROMAX Z-XANDER] amoxicillin [AMOXICILLIN] Allergy Unknown UNKNOWN, Verified 06/15/23 15:22 hives, swelling budesonide [From SYMBICORT] Allergy Unknown UNKNOWN Verified 06/15/23 15:22 cefpodoxime [From VANTIN] Allergy Unknown UNKNOWN Verified 06/15/23 15:22 cefuroxime [From CEFTIN] Allergy Unknown UNKNOWN Verified 06/15/23 15:22 Cephalosporins Allergy Unknown UNKNOWN Verified 06/15/23 15:22 [CEPHALOSPORINS] ciprofloxacin [From CIPRO] Allergy Unknown UNKNOWN Verified 06/15/23 15:22 diphtheria,pertussis Allergy Unknown Unknown Verified 06/15/23 15:22 (acellular),te [Adacel(Tdap Adolesn/Adult)(PF)] erythromycin base Allergy Unknown UNKNOWN Verified 06/15/23 15:22 [ERYTHROMYCIN BASE] fluticasone [Advair Diskus] Allergy Unknown Unknown Verified 06/15/23 15:22 formoterol [From SYMBICORT] Allergy Unknown UNKNOWN Verified 06/15/23 15:22 hydrocodone [From VICODIN] Allergy Unknown unknown Verified 06/15/23 15:22 Iodinated Contrast Media Allergy Unknown UNKNOWN Verified 06/15/23 15:22 [CONTRAST, IV] levofloxacin [From LEVAQUIN] Allergy Unknown UNKNOWN Verified 06/15/23 15:22 penicillin G Allergy Unknown Unknown Verified 06/15/23 15:22 penicillin V Allergy Unknown Unknown Verified 06/15/23 15:22 Penicillins [PENICILLINS] Allergy Unknown UNKNOWN Verified 06/15/23 15:22 salmeterol [Advair Diskus] Allergy Unknown Unknown Verified 06/15/23 15:22 sertraline [From ZOLOFT] Allergy Unknown SUICIDAL Verified 06/15/23 15:22 Sulfa (Sulfonamide Allergy Unknown hives Verified 06/15/23 15:22 Antibiotics) tetanus and diphtheria Allergy Unknown UNKNOWN Verified 06/15/23 15:22 toxoids [TETANUS & DIPHTHERIA TOXOIDS] ertapenem Allergy Swelling Verified 06/15/23 15:22 methylprednisolone Allergy Eye Verified 06/15/23 15:22 [From Solu-Medrol] Swelling ketorolac [From TORADOL] AdvReac Mild ITCHING Verified 06/15/23 15:22 iron AdvReac Anaphylaxis Verified 06/15/23 15:22 Ceftin Allergy Unknown Unknown Uncoded 03/19/22 16:06 Symbicort Allergy Unknown Unknown Uncoded 03/19/22 16:06 Tetanus Allergy Unknown Unknown Uncoded 03/19/22 16:06 Erythromycin Allergy Unknown Uncoded 03/19/22 16:06 Review of Systems Review of Systems: All other systems are reviewed and are negative Constitutional: Reports as per HPI and Reports no additional constitutional complaints Eyes: Reports as per HPI and Reports no additional eye complaints Reports system reviewed and no additional complaints, except as documented Cardiovascular: Reports as per HPI and Reports no additional cardiovascular complaints Respiratory: Reports as per HPI and Reports no additional respiratory complaints Gastrointestinal: Reports as per HPI and Reports no additional gastrointestinal complaints Genitourinary: Reports no additional female genitourinary complaints Musculoskeletal: Reports no additional musculoskeletal complaints Skin/Breast: Reports system reviewed and no additional complaints, except as docu Psychiatric: Reports no additional psychiatric complaints Endocrine: Reports no additional endocrine complaints Hematologic/Lymphatic: Reports no additional hematologic/lymphatic complaints Allergic/Immunologic: Reports no additional allergic/immunologic complaints Reports system reviewed and no additional complaints, except as documented and Reports Abnormal speech present [facility] Past Medical History Medical History Anxiety Anxiety Asthma Atrial fibrillation CHF (congestive heart failure) Depression DVT (deep venous thrombosis) Hypertension Irritable bowel Morbid obesity Pulmonary embolism Surgical History H/O adenoidectomy History of hysterectomy History of tonsillectomy Hx of breast reduction, elective Social History Social History Household Members: Spouse and Children Household Members Other:: 3 Housing: House Housing Other:: duplex Do you presently have visiting nurse or other home services: No Alcohol intake: never Patient Tobacco Use Status: Former Tobacco user Smoked in Last 30 Days: No e-Cigarette/Vaping Use: Never Used Second Hand Smoke Exposure: No Use of substances other than those prescribed or required for medical reasons: No Substance Use Type: Marijuana Advance Directives: Yes Advance Directives on File: Yes Advance Directives Date on File: 09/06/20 Patient : No service: No Current occupational status: unemployed and disabled Sexual orientation: Straight/Heterosexual Physical Exam ED Vital Signs: Vital Signs - 24 hr 06/16/23 16:28 06/16/23 18:51 06/16/23 21:33 Temperature 98.0 F 98.2 F 98.1 F Pulse Rate 103 H 95 73 Respiratory Rate 16 16 18 Blood Pressure 143/78 H 127/72 143/73 H Pulse Oximetry 100 99 97 Oxygen Delivery Method Room Air Room Air Room Air 06/16/23 22:25 06/16/23 23:52 Temperature 98.3 F 98.5 F Pulse Rate 77 90 Respiratory Rate 16 18 Blood Pressure 131/60 132/61 Pulse Oximetry 95 96 Oxygen Delivery Method Room Air Room Air BMI result Body Mass Index 41.4 Vital signs have been reviewed as appeared to be correct. Blood pressure normal. Heart rate normal. Respiration rate normal. Temperature normal. Oxygen saturation normal. Appearance: Alert. Oriented X3. No acute distress. Head: Normal external exam. Normocephalic. Atraumatic. No Salter signs noted. No raccoon eyes noted Eyes: PERRLA. EOMI. Conjunctiva and sclera normal. Eyelids normal. ENT: TM's Normal. Pharynx normal. Uvula midline. Moist mucous membranes. No trismus noted. No drooling noted. No muffled voice noted. Neck: Normal inspection. Neck supple. FROM. No adenopathy. Thyroid Normal. No meningeal signs. No neck mass noted. CVS: Normal heart rate and rhythm. Heart sound normal. No murmurs noted. Pulses normal throughout. Respiratory: No respiratory distress. Painless inspiration. Breath sounds normal. No wheezes/rales/rhonchi noted. Chest nontender. No accessory muscle usage noted or decreased air movement noted. Abdomen: Soft and nontender. Bowel sounds normal in all 4 quadrants. No distention noted. No organomegaly noted. No visible injury noted. Back: No CVA tenderness. Full range of motion noted. Skin: Skin warm and dry. Normal skin color. Normal skin turgor. No rashes/lesions/lacerations noted. Extremities: No lower extremity edema. Extremities exhibit normal range of motion. Extremities nontender. Neuro: Oriented X 3. Cranial nerve exam: II-XII are grossly intact No motor deficit. No sensory deficit. Reflexes normal. Course Course Course Narrative: This is an RME: Additional HPI, ROS, PE not included below will be deferred to primary provider. 52 ear old female presenting with an allergic reaction. She explains she is itchy head to toe and feels like her voice sounds different after receiving IV contrast yesterday. She is allergic to contrast dye and was premedicated. Airway is patent on exam and patient is maintaining secretions, no signs of airway compromise. Plan- Benadryl Reevaluation(s) Reevaluation #1: 52-year-old female presented with facial swelling, voice change, shortness of breath, intermittent chest pain after having IV contrast CT yesterday, patient received IV fluids, Solu-Medrol, multiple doses of Benadryl, Pepcid, patient still have subjective symptoms of SOB, chest pain, still feels change of voice and tongue swelling nevertheless physical exam showing no tongue swelling and patent airway with no stridor. Patient feels if she goes home it will get worse. Patient is complaining of chest pain while she is in the emergency department had multiple EKGs and 1st troponin was negative 2nd troponin is due at 2:30, the case was signed out to Dr. Restrepo to keep monitoring the patient and dispo accordingly. Time: 01:14 Medications Administered Discontinued Medications Generic Name Dose Route Start Last Admin Trade Name Freq PRN Reason Stop Dose Admin Diphenhydramine HCl 50 mg 06/16/23 16:35 06/16/23 19:56 Diphenhydramine Hcl 50 Mg/Ml Vial IVPUSH 06/16/23 16:36 50 mg ONCE ONE Administration Diphenhydramine HCl 50 mg 06/16/23 21:31 06/16/23 21:39 Diphenhydramine Hcl 50 Mg/Ml Vial IVPUSH 06/16/23 21:32 50 mg ONCE ONE Administration Diphenhydramine HCl 50 mg 06/17/23 00:12 06/17/23 00:23 Diphenhydramine Hcl 50 Mg/Ml Vial IVPUSH 06/17/23 00:13 50 mg ONCE ONE Administration Famotidine 20 mg 06/16/23 18:49 06/16/23 19:56 Famotidine/Pf 20 Mg/2 Ml Vial IVPUSH 06/16/23 18:50 20 mg ONCE ONE Administration Sodium Chloride 1,000 mls @ 999 mls/hr 06/16/23 18:51 06/16/23 23:13 Ns IV 06/16/23 19:51 Infused .Q1H1M ONE Infusion Methylprednisolone Sodium Succinate 125 mg 06/16/23 18:49 06/16/23 19:55 Methylprednisolone Sod Succ 125 Mg/2 Ml Vial IVPUSH 06/16/23 18:50 125 mg ONCE ONE Administration Medical Decision Making Medical Decision Making MDM Narrative: -I received sign-out from Dr. Gregorio -the 2nd troponin is pending -on physical exam prior to discharge, patient's airway is intact, no signs of angioedema, normal tongue, no breathing difficulty, vital stable -patient refuses 2nd troponin. Patient is requesting to be discharged home, states that she feels well. -patient aware that the 2nd troponin would help us rule out ACS, patient states that she is aware of the risks but does not want to stay any longer in the hospital -patient was given 1 dose of aspirin prior to discharge Differential Diagnosis Differential Diagnoses: The differential diagnosis associated with the presentation includes (Allergic reaction, angioedema, ACS, anaphylaxis, severe electrolyte abnormality, severe anemia, UTI.) Admission/Observation Consideration of admission/observation: Escalation of care including admission/observation considered Consult Healthcare Provider Management of the patient was discussed with: Hospitalist (Dr. Alexander.) Lab Data MDM Lab Attestation statement: I reviewed the patient's lab results. 06/16/23 23:36 06/16/23 23:36 Labs: Lab Results 06/16/23 06/16/23 06/16/23 Range/Units 23:36 23:36 23:36 WBC 10.1 (4.8-10.8) X10*3/uL RBC 3.58 L (4.20-5.50) X10*6/uL Hgb 8.8 L (12.0-16.0) g/dl Hct 29.1 L (37.0-47.0) % MCV 81.3 (80.0-98.0) fL MCH 24.6 L (27.0-33.0) pg MCHC 30.2 L (31.0-35.0) g/dl RDW 15.5 (11.0-16.0) % Plt Count 188 (160-400) X10*3/uL MPV 11.0 (9.4-12.3) fL Immature Gran % (Auto) 0.4 (0.0-0.4) % Neut % (Auto) 91.2 H (45-73) % Lymph % (Auto) 6.9 L (20-40) % [place] % (Auto) 1.4 L (2-11) % Eos % (Auto) 0.0 (0-4) % Baso % (Auto) 0.1 (0-2) % Lymph # (Auto) 0.7 L (1.2-4.9) X10*3/uL [place] # (Auto) 0.1 (0.1-1.2) X10*3/uL Eos # (Auto) 0.0 (0.0-0.4) X10*3/uL Baso # (Auto) 0.0 (0.0-0.2) X10*3/uL Abs Immat Gran (auto) 0.04 H (0.00-0.03) X10*3/uL Absolute Neuts (auto) 9.2 H (2.0-8.3) x10*3/uL Absolute Nucleated RBC 0.000 (0.0-0.012) X10*3/uL Nucleated RBC % (auto) 0.0 (0.0-0.2) /100WBC Smear Tech's Comments VERIFIED Sodium 140 (135-145) mmol/L Potassium 4.3 (3.3-5.1) mmol/L Chloride 111 H (96-108) mmol/L Carbon Dioxide 21 L (22-29) mmol/L Anion Gap 12 (12-20) BUN 10 (9-16) mg/dL Creatinine 0.71 (0.5-1.4) mg/dL Estim Creat Clear Calc 91.3 Estimated GFR > 60 Random Glucose 123 H (60-115) mg/dL Calcium 8.9 (8.4-10.2) mg/dL Total Bilirubin 0.3 (0.0-1.0) mg/dL Direct Bilirubin 0.1 (0.0-0.5) mg/dL AST 13 (5-31) U/L ALT 14 (0-31) U/L Alkaline Phosphatase 79 (39-117) U/L Troponin I High Sens < 2.7 (<3.5-17.0) ng/L Total Protein 6.4 L (6.5-8.0) g/dL Albumin 4.0 (3.5-5.0) g/dL Lipase 15 (8-78) U/L Urine Color Urine Appearance Urine pH (5.0-9.0) Ur Specific [place] (1.005-1.025) Urine Protein (Neg-Trace) mg/dL Urine Glucose (UA) (Negative) mg/dL Urine Ketones (Negative) mg/dL Urine Blood (Negative) Urine Nitrite (Negative) Ur Leukocyte Esterase (Negative) 06/17/23 Range/Units 00:28 WBC (4.8-10.8) X10*3/uL RBC (4.20-5.50) X10*6/uL Hgb (12.0-16.0) g/dl Hct (37.0-47.0) % MCV (80.0-98.0) fL MCH (27.0-33.0) pg MCHC (31.0-35.0) g/dl RDW (11.0-16.0) % Plt Count (160-400) X10*3/uL MPV (9.4-12.3) fL Immature Gran % (Auto) (0.0-0.4) % Neut % (Auto) (45-73) % Lymph % (Auto) (20-40) % [place] % (Auto) (2-11) % Eos % (Auto) (0-4) % Baso % (Auto) (0-2) % Lymph # (Auto) (1.2-4.9) X10*3/uL [place] # (Auto) (0.1-1.2) X10*3/uL Eos # (Auto) (0.0-0.4) X10*3/uL Baso # (Auto) (0.0-0.2) X10*3/uL Abs Immat Gran (auto) (0.00-0.03) X10*3/uL Absolute Neuts (auto) (2.0-8.3) x10*3/uL Absolute Nucleated RBC (0.0-0.012) X10*3/uL Nucleated RBC % (auto) (0.0-0.2) /100WBC Smear Tech's Comments Sodium (135-145) mmol/L Potassium (3.3-5.1) mmol/L Chloride (96-108) mmol/L Carbon Dioxide (22-29) mmol/L Anion Gap (12-20) BUN (9-16) mg/dL Creatinine (0.5-1.4) mg/dL Estim Creat Clear Calc Estimated GFR Random Glucose (60-115) mg/dL Calcium (8.4-10.2) mg/dL Total Bilirubin (0.0-1.0) mg/dL Direct Bilirubin (0.0-0.5) mg/dL AST (5-31) U/L ALT (0-31) U/L Alkaline Phosphatase (39-117) U/L Troponin I High Sens (<3.5-17.0) ng/L Total Protein (6.5-8.0) g/dL Albumin (3.5-5.0) g/dL Lipase (8-78) U/L Urine Color Yellow Urine Appearance Clear Urine pH 5.5 (5.0-9.0) Ur Specific [place] 1.010 (1.005-1.025) Urine Protein Negative (Neg-Trace) mg/dL Urine Glucose (UA) Negative (Negative) mg/dL Urine Ketones Negative (Negative) mg/dL Urine Blood Negative (Negative) Urine Nitrite Negative (Negative) Ur Leukocyte Esterase Negative (Negative) Independent Interpretation I performed an independent interpretation of an: EKG (EKG 1. : Normal sinus rhythm, left axis deviation, normal intervals, no ST-T wave ischemic changes.) Interpretation: EKG 2. Normal sinus rhythm at 77 beats per minute, left axis deviation, normal intervals, no ST-T changes. Discharge Plan Discharge Clinical Impression: Allergic reaction, Chest pain Patient Disposition: Home, Self-Care Instructions: Chest Pain (ED), General Allergic Reaction (ED) Additional Instructions: Please follow-up with your primary care physician tomorrow. If you have any worsening or new symptoms, please return to the emergency room or call 911 Prescriptions: No Action risperidone [Risperdal] 1 mg Tablet 1 mg PO BEDTIME albuterol sulfate [Ventolin HFA] 90 mcg/actuation Hfa Aerosol Inhaler 2 puff inhalation RQ4H PRN (Reason: Shortness Of Breath) Qty: 6.7 0RF montelukast 10 mg Tablet 10 mg PO BEDTIME trazodone 100 mg Tablet 200 mg PO BEDTIME diltiazem HCl 120 mg capsule,extended release 24hr 1 cap PO DAILY escitalopram oxalate 20 mg tablet 40 mg PO DAILY Patient Comments: Unsure of dosage Rx Instructions: patient states she was recently increased to 40 mg /day lorazepam [Ativan] 1 mg tablet 2 mg PO DAILY PRN (Reason: anxiety) warfarin 3 mg tablet 8 mg PO DAILY@1800 Rx Instructions: patient was supposed to increase to 8 mg daily, but last dose she actually had was for 5 mg on 11/07/21 pantoprazole 40 mg tablet,delayed release (DR/EC) 1 tab PO BEDTIME insulin aspart U-100 [Novolog FlexPen U-100 Insulin] 100 unit/mL (3 mL) insulin pen 2 - 16 unit subcut TID Rx Instructions: per sliding scale Lantus Solostar U-100 Insulin 100 unit/mL (3 mL) insulin pen 15 unit subcut BEDTIME cetirizine 10 mg Tablet 10 mg PO BEDTIME Eliquis 5 mg tablet 5 mg PO BID 30 Days Qty: 60 0RF Trelegy Ellipta 200-62.5-25 mcg blister with device 1 inh inhalation DAILY 30 Days Qty: 1 6RF spironolactone 25 mg tablet PO diazepam 2 mg tablet PO risperidone 2 mg tablet PO buspirone 15 mg tablet 15 mg PO
[2023-06-16 18:51] VITALS: BP 127/72; PULSE 95; RESP 16; TEMP 36.8; O2SAT 99
[2023-06-16] MEDS: methylPREDNISolone Sod Succ 125 MG/2 ML VIAL IVPUSH (19:55)
[2023-06-16] MEDS: 0.9 % Sodium Chloride 1,000 ML 999 ML IV (19:56)
[2023-06-16] MEDS: Famotidine/PF 20 MG/2 ML VIAL IVPUSH (19:56)
[2023-06-16] MEDS: diphenhydrAMINE HCL 50 MG/ML VIAL IVPUSH ×2 (19:56→21:39)
--- NOTE | 2023-06-16 20:01 | PC.NURSE ---
Pt resting quietly in bed at this time. Reportinh itchiness all over after receiving contrast dye in the ED yesterday. Pt has had reactions in the past, resulting in intubation. Pt is A&Ox4, GCS 15, ambulatory. Pt has pink splotches on her face. I accessed her power port using sterile technique and administered medications per DEC. Pt now resting quietly in bed.
[2023-06-16 21:33] VITALS: BP 143/73; PULSE 73; RESP 18; TEMP 36.7; O2SAT 97
--- NOTE | 2023-06-16 21:50 | PC.NURSE ---
Pt reports continuing itchiness. Dr Gregorio aware, ordered more benadryl IV.
[2023-06-16 22:25] VITALS: BP 131/60; PULSE 77; RESP 16; TEMP 36.8; O2SAT 95
[2023-06-16 23:41] LABS: Basophils Percent Auto 0.1 % (0-2); Hematocrit 29.1 % (37.0-47.0); Hemoglobin 8.8 g/dl (12.0-16.0); Imm Gran Abs Auto 0.04 X10*3/uL (0.00-0.03); Imm Gran Pct Auto 0.4 % (0.0-0.4); Lymphocytes Absolute Auto 0.7 X10*3/uL (1.2-4.9); Lymphocytes Percent Auto 6.9 % (20-40); MANUAL DIFF FLAG SCAN; Mean Corpuscular HGB Conc 30.2 g/dl (31.0-35.0); Mean Corpuscular Hemoglobin 24.6 pg (27.0-33.0); Mean Corpuscular Volume 81.3 fL (80.0-98.0); Monocytes Absolute Auto 0.1 X10*3/uL (0.1-1.2); Monocytes Percent Auto 1.4 % (2-11); Neutrophils Absolute Auto 9.2 x10*3/uL (2.0-8.3); Neutrophils Percent Auto 91.2 % (45-73); Platelet Count 188 X10*3/uL (160-400); Red Blood Count 3.58 X10*6/uL (4.20-5.50); Red Cell Distribution Width 15.5 % (11.0-16.0); SCAN SMEAR FLAG 1; White Blood Count 10.1 X10*3/uL (4.8-10.8)
[2023-06-16 23:43] LABS: SLIDE REVIEW VERIFIED
[2023-06-16 23:52] VITALS: BP 132/61; PULSE 90; RESP 18; TEMP 36.9; O2SAT 96
[2023-06-16 23:57] LABS: Alanine Aminotransferase 14 U/L (0-31); Alkaline Phosphatase 79 U/L (39-117); Anion Gap 12 (12-20); Aspartate Amino Transferase 13 U/L (5-31); Bilirubin Direct 0.1 mg/dL (0.0-0.5); Bilirubin Total 0.3 mg/dL (0.0-1.0); Blood Urea Nitrogen 10 mg/dL (9-16); Calcium 8.9 mg/dL (8.4-10.2); Carbon Dioxide 21 mmol/L (22-29); Chloride 111 mmol/L (96-108); Creatinine Clr Calc Pharmacy 91.3; Estimated Glomerular Filt Rate > 60; Glucose Random 123 mg/dL (60-115); Lipase 15 U/L (8-78); Potassium 4.3 mmol/L (3.3-5.1); Sodium 140 mmol/L (135-145); Total Protein 6.4 g/dL (6.5-8.0)
--- NOTE | 2023-06-17 | ECG_ITS ---
Test Reason : chest discomfort Blood Pressure : / mmHG Vent. Rate : 076 BPM Atrial Rate : 076 BPM P-R Int : 174 ms QRS Dur : 072 ms QT Int : 386 ms P-R-T Axes : 044 -01 032 degrees QTc Int : 434 ms Normal sinus rhythm Low voltage QRS Cannot rule out Anterior infarct , age undetermined Abnormal ECG When compared with ECG of 16-JUN-2023 22:35, No significant change was found Referred By: Malik Gregorio Electronically Signed By:REYNA POWER
[2023-06-17 00:18] LABS: Troponin-I High Sensitivity < 2.7 ng/L (<3.5-17.0)
[2023-06-17] MEDS: diphenhydrAMINE HCL 50 MG/ML VIAL IVPUSH (00:23)
--- NOTE | 2023-06-17 00:26 | PM.EVENT ---
Event Note Date of Service: 06/17/23 Event Note: I was asked to evaluate the patient for allergic reaction . Patient states she is allergic to IV contrast which she received 24 hours prior to current presentation, although patient was premedicated prior to IV contrast on 06/15. Patient states that she is here for redness over her face and itching of her legs. Also feels that her voice has changed due to the allergic reaction. Does have vague complaints including dyspnea and chest discomfort although patient's EKG is within normal limits and 1st set of troponin is negative. She is without wheezing on physical exam and is saturating 96% on room air. I was asked to evaluate the patient for allergic reaction' including swelling of tongue although I do not appreciate it on my physical exam and did not see mention of angioedema of the tongue in ER physician's HPI or in triage note. Patient also did not mention swelling of her tongue at the time of my evaluation. ER physician is also concerned about various symptoms associated with allergic reaction. I asked for a chest x-ray and 2nd set of troponin to differentiate between cardiac and noncardiac chest discomfort if that is the concern for admission. ER physician is concerned that patient will again come back due to her allergies and history of severe asthma. I conveyed that currently I do not think that the patient meets inpatient criteria as she is without angioedema, maintaining normal oxygen saturation on room air, not wheezing. I was told that patient does not want to go home as she is v anxious and might complaint to higher authorities if discharged. I feel patient does not meet inpatient criteria and is safe to be discharged with po antihistaminics and steroids. Time Spent With Patient Time: Total time managing care of this patient today ____ minutes.
--- NOTE | 2023-06-17 00:32 | PC.NURSE ---
Pt complaining of 10/10 chest discomfort. Pt also breaking into sweats and is still itchy. MD aware, EKG and benadryl ordered.
[2023-06-17 00:42] LABS: Appearance Urine Clear; Color Urine Yellow; Glucose Urine UA Negative (Negative); Leukocyte Esterase Urine Negative (Negative); Nitrite Urine Negative (Negative); PH 5.5 (5.0-9.0); Urine Blood Negative (Negative); Urine Ketones Negative (Negative); Urine Protein Negative (Neg-Trace)
[2023-06-17 02:46] VITALS: BP 132/56; PULSE 79; RESP 14; O2SAT 97
[2023-06-17] MEDS: Aspirin Enteric Coated 325 MG TABLET.DR PO (03:02)
== END 2023-06-17 03:07 | disposition home or self-care (01) ==
PROVIDERS: Emergency Provider Emergency Medicine
DX: L50.0 Allergic urticaria (principal); L29.9 Pruritus, unspecified; R07.89 Other chest pain; R06.02 Shortness of breath; R22.1 Localized swelling, mass and lump, neck; Z87.891 Personal history of nicotine dependence; Z79.899 Other long term (current) drug therapy
CPT/HCPCS: 36415; 80048; 80076; 81003; 83690; 84484; 85025; 92950; 93005; 96361; 96374; 96375; 96376; 99285; J1200; J2930

== ENCOUNTER 2023-06-25 17:24 | Emergency (ER) | payer MEDICARE, SELFPAY ==
--- NOTE | ~2023-06-25 | XR_ITS ---
EXAMINATION: XR CHEST CLINICAL INFORMATION: Difficulty breathing COMPARISON: Chest 06/15/2023 TECHNIQUE: Frontal view of the chest was obtained. FINDINGS: The lungs are well-expanded and clear. The heart size and pulmonary vascularity is normal. There is a left subclavian port with its tip at the atrioventricular junction. No gross bony abnormality is seen. XR/XR chest 1V IMPRESSION: Unremarkable chest exam.
[2023-06-25 17:31] VITALS: PULSE 130; RESP 22; O2SAT 97; BMI 40.4
--- NOTE | 2023-06-25 17:31 | ED.SOB ---
HPI - SOB/Dyspnea General Chief Complaint: Asthma Stated Complaint: asthma ,sob,coughing Time Seen by Provider: 06/25/23 17:51 Source: patient Mode of arrival: ambulatory History of Present Illness HPI Narrative: 52-year-old female presents with asthma like symptoms with shortness breath and coughing but denies any fever, chills, nausea, vomiting, abdominal pain or urinary symptoms. Related Data Home Medications Medication Instructions Recorded Confirmed montelukast 10 mg tablet 10 mg PO BEDTIME 09/03/20 11/09/21 trazodone 100 mg tablet 200 mg PO BEDTIME 09/03/20 11/09/21 risperidone 1 mg tablet (Risperdal) 1 mg PO BEDTIME 05/13/21 11/09/21 diltiazem HCl 120 mg 1 cap PO DAILY 07/09/21 11/09/21 capsule,extended release 24 hr escitalopram oxalate 20 mg tablet 40 mg PO DAILY 07/09/21 11/09/21 cetirizine 10 mg tablet 10 mg PO BEDTIME 11/09/21 11/09/21 insulin aspart U-100 100 unit/mL 2 - 16 unit subcut TID 11/09/21 11/09/21 (3 mL) subcutaneous pen (Novolog FlexPen U-100 Insulin aspart) insulin glargine 100 unit/mL (3 15 unit subcut BEDTIME 11/09/21 11/09/21 mL) subcutaneous pen (Lantus Solostar U-100 Insulin) lorazepam 1 mg tablet (Ativan) 2 mg PO DAILY PRN anxiety 11/09/21 11/09/21 pantoprazole 40 mg tablet,delayed 1 tab PO BEDTIME 11/09/21 11/09/21 release warfarin 3 mg tablet 8 mg PO DAILY@1800 11/09/21 11/09/21 buspirone 15 mg tablet 15 mg PO 03/19/22 diazepam 2 mg tablet mg PO 06/14/22 risperidone 2 mg tablet mg PO 06/14/22 spironolactone 25 mg tablet mg PO 06/14/22 Previous Rx's Medication Instructions Recorded albuterol sulfate 90 mcg/actuation 2 puff inhalation RQ4H PRN 05/17/21 aerosol inhaler (Ventolin HFA) Shortness Of Breath #6.7 grams fluticasone fur. 200 mcg-umeclid 1 inh inhalation DAILY 30 days #1 11/08/21 62.5 mcg-vilant 25 mcg ea inhalat.powder (Trelegy Ellipta) apixaban 5 mg tablet (Eliquis) 5 mg PO BID 30 days #60 tabs 05/17/23 Allergies Allergy/AdvReac Type Severity Reaction Status Date / Time azithromycin Allergy Intermediate ITCHING Verified 06/15/23 15:22 [From ZITHROMAX Z-XANDER] amoxicillin [AMOXICILLIN] Allergy Unknown UNKNOWN, Verified 06/15/23 15:22 hives, swelling budesonide [From SYMBICORT] Allergy Unknown UNKNOWN Verified 06/15/23 15:22 cefpodoxime [From VANTIN] Allergy Unknown UNKNOWN Verified 06/15/23 15:22 cefuroxime [From CEFTIN] Allergy Unknown UNKNOWN Verified 06/15/23 15:22 Cephalosporins Allergy Unknown UNKNOWN Verified 06/15/23 15:22 [CEPHALOSPORINS] ciprofloxacin [From CIPRO] Allergy Unknown UNKNOWN Verified 06/15/23 15:22 diphtheria,pertussis Allergy Unknown Unknown Verified 06/15/23 15:22 (acellular),te [Adacel(Tdap Adolesn/Adult)(PF)] erythromycin base Allergy Unknown UNKNOWN Verified 06/15/23 15:22 [ERYTHROMYCIN BASE] fluticasone [Advair Diskus] Allergy Unknown Unknown Verified 06/15/23 15:22 formoterol [From SYMBICORT] Allergy Unknown UNKNOWN Verified 06/15/23 15:22 hydrocodone [From VICODIN] Allergy Unknown unknown Verified 06/15/23 15:22 Iodinated Contrast Media Allergy Unknown UNKNOWN Verified 06/15/23 15:22 [CONTRAST, IV] levofloxacin [From LEVAQUIN] Allergy Unknown UNKNOWN Verified 06/15/23 15:22 penicillin G Allergy Unknown Unknown Verified 06/15/23 15:22 penicillin V Allergy Unknown Unknown Verified 06/15/23 15:22 Penicillins [PENICILLINS] Allergy Unknown UNKNOWN Verified 06/15/23 15:22 salmeterol [Advair Diskus] Allergy Unknown Unknown Verified 06/15/23 15:22 sertraline [From ZOLOFT] Allergy Unknown SUICIDAL Verified 06/15/23 15:22 Sulfa (Sulfonamide Allergy Unknown hives Verified 06/15/23 15:22 Antibiotics) tetanus and diphtheria Allergy Unknown UNKNOWN Verified 06/15/23 15:22 toxoids [TETANUS & DIPHTHERIA TOXOIDS] ertapenem Allergy Swelling Verified 06/15/23 15:22 methylprednisolone Allergy Eye Verified 06/15/23 15:22 [From Solu-Medrol] Swelling ketorolac [From TORADOL] AdvReac Mild ITCHING Verified 06/15/23 15:22 iron AdvReac Anaphylaxis Verified 06/15/23 15:22 Ceftin Allergy Unknown Unknown Uncoded 03/19/22 16:06 Symbicort Allergy Unknown Unknown Uncoded 03/19/22 16:06 Tetanus Allergy Unknown Unknown Uncoded 03/19/22 16:06 Erythromycin Allergy Unknown Uncoded 03/19/22 16:06 Review of Systems Review of Systems: Pertinent positives and negatives as stated in HPI [facility] Past Medical History Source: nursing notes reviewed Medical History Anxiety Anxiety Asthma Atrial fibrillation CHF (congestive heart failure) Depression DVT (deep venous thrombosis) Hypertension Irritable bowel Morbid obesity Pulmonary embolism Surgical History H/O adenoidectomy History of hysterectomy History of tonsillectomy Hx of breast reduction, elective Social History Social History Household Members: Spouse and Children Household Members Other:: 3 Housing: House Housing Other:: duplex Do you presently have visiting nurse or other home services: No Alcohol intake: never Patient Tobacco Use Status: Former Tobacco user Smoked in Last 30 Days: No e-Cigarette/Vaping Use: Never Used Second Hand Smoke Exposure: No Use of substances other than those prescribed or required for medical reasons: No Substance Use Type: Marijuana Advance Directives: Yes Advance Directives on File: Yes Advance Directives Date on File: 09/06/20 Patient : No service: No Current occupational status: unemployed and disabled Sexual orientation: Straight/Heterosexual Physical Exam Vital Signs: Vital Signs: Last Vital Signs Pulse 108 H 06/25/23 18:42 Resp 20 06/25/23 18:42 Pulse Ox 97 06/25/23 17:31 O2 Del Method Room Air 06/25/23 17:31 BMI result Body Mass Index 40.4 VITAL SIGNS: Reviewed. GENERAL: Well developed, well nourished, in no acute distress. HEAD: Normocephalic/atraumatic EYES: PERRLA, EOMI EARS: Ext canals without abnormality NOSE: Nares patent bilateral OROPHARYNX: no oral lesions noted, posterior pharynx clear NECK: Supple, no adenopathy LUNGS: Normal breath sounds, although there is a lot of coughing I do not appreciate expiratory wheezing. SpO2<97> CARDIOVASCULAR: Regular rate and rhythm without noted murmurs ABDOMEN: Soft, non-tender, non-distended with bowel sounds. MUSCULOSKELETAL: No tenderness, deformities, or effusions noted on gross inspection. EXTREMITIES: No cyanosis, clubbing or edema. SKIN: Inspection of the skin reveals no rashes NEUROLOGIC: Alert and oriented x 4. Strength and sensation to light touch were grossly intact x 4. Course Course Course Narrative: This is a rapid medical exam. deferred additional HPI, ROS, PE to primary provider. 52-year-old female with past medical history of pulmonary embolism on eliquis, DVT, factor 5 Leiden,?atrial fibrillation,CHF, asthma, depression, anemia?here with complaints of diff breathing x 30 minutes. Has had URI symptoms since Friday. Tachycardic in triage with rates 130's, tachypnic in triage. Will obtain labs, EKG, CXR, viral testing Medications Administered Discontinued Medications Generic Name Dose Route Start Last Admin Trade Name Freq PRN Reason Stop Dose Admin Albuterol/Ipratropium 3 ml 06/25/23 17:33 06/25/23 18:42 Albuterol/Iprat 2.5/0.5mg 3 Ml Ampul.Neb INHALE 06/25/23 17:34 3 ml ONCE ONE Administration Methylprednisolone Sodium Succinate 125 mg 06/25/23 17:33 06/25/23 18:20 Methylprednisolone Sod Succ 125 Mg/2 Ml Vial IVPUSH 06/25/23 17:34 125 mg ONCE ONE Administration Medical Decision Making Medical Decision Making MDM Narrative: 52-year-old female with history and clinical presentation, DDX: pneumonia, asthma I reviewed all investigations and hematologic indices are negative for leukocytosis or left shift, patient has normocytic anemia and no thrombocytopenia. Chemistry indices are negative for ABIMAEL and electrolyte as well as liver enzymes are within normal limits, troponin is undetectable. Chest x-ray without infiltrate and otherwise my interpretation is in agreement with radiology's impression. EKG does not show any ST elevations. 2030: On re-evaluation patient is feeling better and request Benadryl. My interpretation is patient has had a mild asthma exacerbation is otherwise stable for discharge. Differential Diagnosis Differential Diagnoses: The differential diagnosis associated with the presentation includes Please see the discussion above Admission/Observation Consideration of admission/observation: Escalation of care including admission/observation considered Please see the discussion above Lab Data MDM Lab Attestation statement: I reviewed the patient's lab results. Please see the discussion above 06/25/23 18:16 06/25/23 18:16 Labs: Lab Results 06/25/23 06/25/23 06/25/23 Range/Units 18:16 18:16 18:16 WBC 6.2 (4.8-10.8) X10*3/uL RBC 4.02 L (4.20-5.50) X10*6/uL Hgb 10.1 L (12.0-16.0) g/dl Hct 33.1 L (37.0-47.0) % MCV 82.3 (80.0-98.0) fL MCH 25.1 L (27.0-33.0) pg MCHC 30.5 L (31.0-35.0) g/dl RDW 17.1 H (11.0-16.0) % Plt Count 225 (160-400) X10*3/uL MPV 12.0 (9.4-12.3) fL Immature Gran % (Auto) 1.1 H (0.0-0.4) % Neut % (Auto) 63.1 (45-73) % Lymph % (Auto) 26.5 (20-40) % Dup[place] % (Auto) 9.0 (2-11) % Eos % (Auto) 0.0 (0-4) % Baso % (Auto) 0.3 (0-2) % Lymph # (Auto) 1.6 (1.2-4.9) X10*3/uL Dup[place] # (Auto) 0.6 (0.1-1.2) X10*3/uL Eos # (Auto) 0.0 (0.0-0.4) X10*3/uL Baso # (Auto) 0.0 (0.0-0.2) X10*3/uL Abs Immat Gran (auto) 0.07 H (0.00-0.03) X10*3/uL Absolute Neuts (auto) 3.9 (2.0-8.3) x10*3/uL Absolute Nucleated RBC 0.000 (0.0-0.012) X10*3/uL Nucleated RBC % (auto) 0.0 (0.0-0.2) /100WBC Sodium 141 (135-145) mmol/L Potassium 4.2 (3.3-5.1) mmol/L Chloride 109 H (96-108) mmol/L Carbon Dioxide 21 L (22-29) mmol/L Anion Gap 15 (12-20) BUN 8 L (9-16) mg/dL Creatinine 1.17 (0.5-1.4) mg/dL Estim Creat Clear Calc 54.6 Estimated GFR 48 Random Glucose 99 (60-115) mg/dL Calcium 9.3 (8.4-10.2) mg/dL Total Bilirubin 0.3 (0.0-1.0) mg/dL Direct Bilirubin 0.1 (0.0-0.5) mg/dL AST 16 (5-31) U/L ALT 16 (0-31) U/L Alkaline Phosphatase 92 (39-117) U/L Troponin I High Sens < 2.7 (<3.5-17.0) ng/L Total Protein 6.9 (6.5-8.0) g/dL Albumin 4.3 (3.5-5.0) g/dL Influenza Type A (PCR) (Negative) Influenza Type B (PCR) (Negative) RSV RNA Qual (PCR) (Negative) SARS-CoV-2 RNA (RT-PCR) (Negative) 06/25/23 Range/Units 18:16 WBC (4.8-10.8) X10*3/uL RBC (4.20-5.50) X10*6/uL Hgb (12.0-16.0) g/dl Hct (37.0-47.0) % MCV (80.0-98.0) fL MCH (27.0-33.0) pg MCHC (31.0-35.0) g/dl RDW (11.0-16.0) % Plt Count (160-400) X10*3/uL MPV (9.4-12.3) fL Immature Gran % (Auto) (0.0-0.4) % Neut % (Auto) (45-73) % Lymph % (Auto) (20-40) % [place] % (Auto) (2-11) % Eos % (Auto) (0-4) % Baso % (Auto) (0-2) % Lymph # (Auto) (1.2-4.9) X10*3/uL [place] # (Auto) (0.1-1.2) X10*3/uL Eos # (Auto) (0.0-0.4) X10*3/uL Baso # (Auto) (0.0-0.2) X10*3/uL Abs Immat Gran (auto) (0.00-0.03) X10*3/uL Absolute Neuts (auto) (2.0-8.3) x10*3/uL Absolute Nucleated RBC (0.0-0.012) X10*3/uL Nucleated RBC % (auto) (0.0-0.2) /100WBC Sodium (135-145) mmol/L Potassium (3.3-5.1) mmol/L Chloride (96-108) mmol/L Carbon Dioxide (22-29) mmol/L Anion Gap (12-20) BUN (9-16) mg/dL Creatinine (0.5-1.4) mg/dL Estim Creat Clear Calc Estimated GFR Random Glucose (60-115) mg/dL Calcium (8.4-10.2) mg/dL Total Bilirubin (0.0-1.0) mg/dL Direct Bilirubin (0.0-0.5) mg/dL AST (5-31) U/L ALT (0-31) U/L Alkaline Phosphatase (39-117) U/L Troponin I High Sens (<3.5-17.0) ng/L Total Protein (6.5-8.0) g/dL Albumin (3.5-5.0) g/dL Influenza Type A (PCR) NEGATIVE (Negative) Influenza Type B (PCR) NEGATIVE (Negative) RSV RNA Qual (PCR) NEGATIVE (Negative) SARS-CoV-2 RNA (RT-PCR) NEGATIVE (Negative) Independent Interpretation I performed an independent interpretation of an: EKG Interpretation: Sinus tachycardia, HR-115, no STEMI, AR/QRS/QTC is within normal limits. Radiology Impression Discussion of test interpretation with radiology: I have reviewed the radiologist's reading. Radiologist Impression: Please see the discussion above External Record Review External record reviewed: Outpatient record, Prior outpatient labs and Prior outpatient radiology Chronic Conditions Patient?s care impacted by: Hypertension Critical Care Time Critical Care Time Critical Care Time: Yes Total Critical Care Time: 30 Attestation: I personally attest to this time spent taking care of the patient. Discharge Plan Discharge Clinical Impression: Asthma exacerbation Patient Disposition: Home, Self-Care Instructions: Asthma (ED) Additional Instructions: 1. Resume all home medications as prescribed. Your workup was otherwise negative for evidence of pneumonia or COVID-19/flu. 2. Follow-up with your primary care provider next 1-2 days. Return to the ER for any worsening symptoms. Prescriptions: No Action risperidone [Risperdal] 1 mg Tablet 1 mg PO BEDTIME albuterol sulfate [Ventolin HFA] 90 mcg/actuation Hfa Aerosol Inhaler 2 puff inhalation RQ4H PRN (Reason: Shortness Of Breath) Qty: 6.7 0RF montelukast 10 mg Tablet 10 mg PO BEDTIME trazodone 100 mg Tablet 200 mg PO BEDTIME diltiazem HCl 120 mg capsule,extended release 24hr 1 cap PO DAILY escitalopram oxalate 20 mg tablet 40 mg PO DAILY Patient Comments: Unsure of dosage Rx Instructions: patient states she was recently increased to 40 mg /day lorazepam [Ativan] 1 mg tablet 2 mg PO DAILY PRN (Reason: anxiety) warfarin 3 mg tablet 8 mg PO DAILY@1800 Rx Instructions: patient was supposed to increase to 8 mg daily, but last dose she actually had was for 5 mg on 11/07/21 pantoprazole 40 mg tablet,delayed release (DR/EC) 1 tab PO BEDTIME insulin aspart U-100 [Novolog FlexPen U-100 Insulin] 100 unit/mL (3 mL) insulin pen 2 - 16 unit subcut TID Rx Instructions: per sliding scale Lantus Solostar U-100 Insulin 100 unit/mL (3 mL) insulin pen 15 unit subcut BEDTIME cetirizine 10 mg Tablet 10 mg PO BEDTIME Eliquis 5 mg tablet 5 mg PO BID 30 Days Qty: 60 0RF Trelegy Ellipta 200-62.5-25 mcg blister with device 1 inh inhalation DAILY 30 Days Qty: 1 6RF spironolactone 25 mg tablet PO diazepam 2 mg tablet PO risperidone 2 mg tablet PO buspirone 15 mg tablet 15 mg PO
--- NOTE | 2023-06-25 17:33 | ECG_ITS ---
Test Reason : SHORT OF BREATH Blood Pressure : / mmHG Vent. Rate : 115 BPM Atrial Rate : 115 BPM P-R Int : 160 ms QRS Dur : 066 ms QT Int : 320 ms P-R-T Axes : 037 -56 032 degrees QTc Int : 442 ms Sinus tachycardia Low voltage QRS Left anterior fascicular block Possible Inferior infarct , age undetermined Possible Anterolateral infarct (cited on or before 16-JUN-2023) Abnormal ECG When compared with ECG of 17-JUN-2023 00:38, Vent. rate has increased BY 39 BPM Left anterior fascicular block is now Present Borderline criteria for Inferior infarct are now Present Questionable change in initial forces of Lateral leads Referred By: Griselda Talley Electronically Signed By:REYNA POWER
[2023-06-25] MEDS: methylPREDNISolone Sod Succ 125 MG/2 ML VIAL IVPUSH (18:20)
[2023-06-25 18:22] LABS: MANUAL DIFF FLAG NO
[2023-06-25 18:37] LABS: Basophils Percent Auto 0.3 % (0-2); Hematocrit 33.1 % (37.0-47.0); Hemoglobin 10.1 g/dl (12.0-16.0); Imm Gran Abs Auto 0.07 X10*3/uL (0.00-0.03); Imm Gran Pct Auto 1.1 % (0.0-0.4); Lymphocytes Absolute Auto 1.6 X10*3/uL (1.2-4.9); Lymphocytes Percent Auto 26.5 % (20-40); Mean Corpuscular HGB Conc 30.5 g/dl (31.0-35.0); Mean Corpuscular Hemoglobin 25.1 pg (27.0-33.0); Mean Corpuscular Volume 82.3 fL (80.0-98.0); Monocytes Absolute Auto 0.6 X10*3/uL (0.1-1.2); Neutrophils Absolute Auto 3.9 x10*3/uL (2.0-8.3); Neutrophils Percent Auto 63.1 % (45-73); Platelet Count 225 X10*3/uL (160-400); Red Blood Count 4.02 X10*6/uL (4.20-5.50); Red Cell Distribution Width 17.1 % (11.0-16.0); White Blood Count 6.2 X10*3/uL (4.8-10.8)
[2023-06-25 18:42] VITALS: PULSE 108; RESP 20; O2SAT 95
[2023-06-25] MEDS: Albuterol/Iprat 2.5/0.5MG 3 ML AMPUL.NEB INHALE (18:42)
[2023-06-25 18:48] LABS: Alanine Aminotransferase 16 U/L (0-31); Albumin Level 4.3 g/dL (3.5-5.0); Alkaline Phosphatase 92 U/L (39-117); Anion Gap 15 (12-20); Aspartate Amino Transferase 16 U/L (5-31); Bilirubin Direct 0.1 mg/dL (0.0-0.5); Bilirubin Total 0.3 mg/dL (0.0-1.0); Blood Urea Nitrogen 8 mg/dL (9-16); Calcium 9.3 mg/dL (8.4-10.2); Carbon Dioxide 21 mmol/L (22-29); Chloride 109 mmol/L (96-108); Creatinine Clr Calc Pharmacy 54.6; Estimated Glomerular Filt Rate 48; Glucose Random 99 mg/dL (60-115); Potassium 4.2 mmol/L (3.3-5.1); Sodium 141 mmol/L (135-145); Total Protein 6.9 g/dL (6.5-8.0)
[2023-06-25 18:54] LABS: Troponin-I High Sensitivity < 2.7 ng/L (<3.5-17.0)
[2023-06-25 19:13] LABS: Influenza A PCR NEGATIVE (Negative); Influenza B PCR NEGATIVE (Negative); Resp Syncy Virus RNA Qual PCR NEGATIVE (Negative); SARS COV2 PCR INHOUSE NEGATIVE (Negative)
[2023-06-25] MEDS: Benzonatate 100 MG CAPSULE 200 MG PO (20:39)
[2023-06-25] MEDS: diphenhydrAMINE HCL 25 MG CAPSULE PO (20:39)
== END 2023-06-25 20:45 | disposition home or self-care (01) ==
PROVIDERS: Nurse Practitioner Family; Emergency Provider Student in an Organized Health Care Education/Training Program
DX: J45.901 Unspecified asthma with (acute) exacerbation (principal); R06.02 Shortness of breath; Z20.828 Contact with and (suspected) exposure to other viral communicable diseases; Z20.822 Contact with and (suspected) exposure to COVID-19; I11.0 Hypertensive heart disease with heart failure; I50.9 Heart failure, unspecified; E66.9 Obesity, unspecified; Z68.41 Body mass index [BMI] 40.0-44.9, adult; Z79.4 Long term (current) use of insulin; Z86.718 Personal history of other venous thrombosis and embolism; Z86.711 Personal history of pulmonary embolism; Z87.891 Personal history of nicotine dependence; Z79.01 Long term (current) use of anticoagulants; Z79.899 Other long term (current) drug therapy
CPT/HCPCS: 0241U; 36415; 71045; 80048; 80076; 84484; 85025; 93005; 94640; 96374; 99284; 99285; J2930

== ENCOUNTER 2023-08-01 17:18 | Emergency (ER) | payer MEDICARE, SELFPAY ==
[2023-08-01 17:46] VITALS: BP 153/72; PULSE 95; RESP 17; TEMP 36.5; O2SAT 98; BMI 43.5
--- NOTE | 2023-08-01 17:47 | ED.GENADULT ---
HPI - General Adult General Chief complaint: General Medical Stated complaint: Abdominal pain/Rectal bleeding Time Seen by Provider: 08/01/23 22:42 Source: patient Mode of arrival: ambulatory Limitations: no limitations History of Present Illness HPI narrative: Patient has frequent ED visits home so comes with rectal bleeding from the hemorrhoid surgery for last 3 days diffuse abdominal pain which is going on for last few days been to different hospitals was seen at [facility] last week workup was negative had hemorrhoid surgery in 04/11 at [facility]. No nausea no vomiting no diarrhea no fever or chills patient had CT scan of abdomen done on 06/11 which was negative Related Data Home Medications Medication Instructions Recorded Confirmed montelukast 10 mg tablet 10 mg PO BEDTIME 09/03/20 11/09/21 trazodone 100 mg tablet 200 mg PO BEDTIME 09/03/20 11/09/21 risperidone 1 mg tablet (Risperdal) 1 mg PO BEDTIME 05/13/21 11/09/21 diltiazem HCl 120 mg 1 cap PO DAILY 07/09/21 11/09/21 capsule,extended release 24 hr escitalopram oxalate 20 mg tablet 40 mg PO DAILY 07/09/21 11/09/21 cetirizine 10 mg tablet 10 mg PO BEDTIME 11/09/21 11/09/21 insulin aspart U-100 100 unit/mL 2 - 16 unit subcut TID 11/09/21 11/09/21 (3 mL) subcutaneous pen (Novolog FlexPen U-100 Insulin aspart) insulin glargine 100 unit/mL (3 15 unit subcut BEDTIME 11/09/21 11/09/21 mL) subcutaneous pen (Lantus Solostar U-100 Insulin) lorazepam 1 mg tablet (Ativan) 2 mg PO DAILY PRN anxiety 11/09/21 11/09/21 pantoprazole 40 mg tablet,delayed 1 tab PO BEDTIME 11/09/21 11/09/21 release warfarin 3 mg tablet 8 mg PO DAILY@1800 11/09/21 11/09/21 buspirone 15 mg tablet 15 mg PO 03/19/22 diazepam 2 mg tablet mg PO 06/14/22 risperidone 2 mg tablet mg PO 06/14/22 spironolactone 25 mg tablet mg PO 06/14/22 Previous Rx's Medication Instructions Recorded albuterol sulfate 90 mcg/actuation 2 puff inhalation RQ4H PRN 05/17/21 aerosol inhaler (Ventolin HFA) Shortness Of Breath #6.7 grams fluticasone fur. 200 mcg-umeclid 1 inh inhalation DAILY 30 days #1 08/27/21 62.5 mcg-vilant 25 mcg ea inhalat.powder (Trelegy Ellipta) apixaban 5 mg tablet (Eliquis) 5 mg PO BID 30 days #60 tabs 05/17/23 morphine 15 mg immediate release 15 mg PO Q8H PRN pain #15 tabs 08/01/23 tablet Allergies Allergy/AdvReac Type Severity Reaction Status Date / Time azithromycin Allergy Intermediate ITCHING Verified 06/15/23 15:22 [From ZITHROMAX Z-XANDER] amoxicillin [AMOXICILLIN] Allergy Unknown UNKNOWN, Verified 06/15/23 15:22 hives, swelling budesonide [From SYMBICORT] Allergy Unknown UNKNOWN Verified 06/15/23 15:22 cefpodoxime [From VANTIN] Allergy Unknown UNKNOWN Verified 06/15/23 15:22 cefuroxime [From CEFTIN] Allergy Unknown UNKNOWN Verified 06/15/23 15:22 Cephalosporins Allergy Unknown UNKNOWN Verified 06/15/23 15:22 [CEPHALOSPORINS] ciprofloxacin [From CIPRO] Allergy Unknown UNKNOWN Verified 06/15/23 15:22 diphtheria,pertussis Allergy Unknown Unknown Verified 06/15/23 15:22 (acellular),te [Adacel(Tdap Adolesn/Adult)(PF)] erythromycin base Allergy Unknown UNKNOWN Verified 06/15/23 15:22 [ERYTHROMYCIN BASE] fluticasone [Advair Diskus] Allergy Unknown Unknown Verified 06/15/23 15:22 formoterol [From SYMBICORT] Allergy Unknown UNKNOWN Verified 06/15/23 15:22 hydrocodone [From VICODIN] Allergy Unknown unknown Verified 06/15/23 15:22 Iodinated Contrast Media Allergy Unknown UNKNOWN Verified 06/15/23 15:22 [CONTRAST, IV] levofloxacin [From LEVAQUIN] Allergy Unknown UNKNOWN Verified 06/15/23 15:22 penicillin G Allergy Unknown Unknown Verified 06/15/23 15:22 penicillin V Allergy Unknown Unknown Verified 06/15/23 15:22 Penicillins [PENICILLINS] Allergy Unknown UNKNOWN Verified 06/15/23 15:22 salmeterol [Advair Diskus] Allergy Unknown Unknown Verified 06/15/23 15:22 sertraline [From ZOLOFT] Allergy Unknown SUICIDAL Verified 06/15/23 15:22 Sulfa (Sulfonamide Allergy Unknown hives Verified 06/15/23 15:22 Antibiotics) tetanus and diphtheria Allergy Unknown UNKNOWN Verified 06/15/23 15:22 toxoids [TETANUS & DIPHTHERIA TOXOIDS] ertapenem Allergy Swelling Verified 06/15/23 15:22 methylprednisolone Allergy Eye Verified 06/15/23 15:22 [From Solu-Medrol] Swelling ketorolac [From TORADOL] AdvReac Mild ITCHING Verified 06/15/23 15:22 iron AdvReac Anaphylaxis Verified 06/15/23 15:22 Ceftin Allergy Unknown Unknown Uncoded 03/19/22 16:06 Symbicort Allergy Unknown Unknown Uncoded 03/19/22 16:06 Tetanus Allergy Unknown Unknown Uncoded 03/19/22 16:06 Erythromycin Allergy Unknown Uncoded 03/19/22 16:06 Review of Systems Review of Systems: Yes all other systems are reviewed and are negative PMFSH Past Medical History Medical History Pulmonary embolism Irritable bowel Anxiety Atrial fibrillation Morbid obesity CHF (congestive heart failure) Hypertension Depression Anxiety DVT (deep venous thrombosis) Asthma Surgical History Hx of breast reduction, elective History of tonsillectomy H/O adenoidectomy History of hysterectomy Social History Social History Household Members: Spouse and Children Household Members Other:: 3 Housing: House Housing Other:: duplex Do you presently have visiting nurse or other home services: No Alcohol intake: never Patient Tobacco Use Status: Former Tobacco user e-Cigarette/Vaping Use: Never Used Second Hand Smoke Exposure: No Substance Use Type: Marijuana Advance Directives: Yes Advance Directives on File: Yes Advance Directives Date on File: 09/06/20 service: No Current occupational status: unemployed and disabled Sexual orientation: Straight/Heterosexual Physical Exam ED Vital Signs: Vital Signs - 24 hr 08/01/23 17:46 08/01/23 22:38 Temperature 97.7 F 98.2 F Pulse Rate 95 87 Respiratory Rate 17 20 Blood Pressure 153/72 H 130/69 Pulse Oximetry 98 98 Oxygen Delivery Method Room Air Room Air BMI result Body Mass Index 43.5 Appearance: Alert. Oriented X3. No acute distress. Eyes: PERRLA, No Nystagmus ENT: Pharynx normal. Oral Mucosa moist Neck: Normal inspection. Neck supple. CVS: Normal heart rate and rhythm. Pulses normal. Respiratory: No respiratory distress. Equal air entry bilateral, no wheezing/rales/rhonchi Abdomen: Soft , diffuse tenderness no rebound tenderness , Bowel sounds are present, no mass palpable, no CVA tenderness Skin: Skin warm and dry. Normal skin color. Normal skin turgor. Extremities: No lower extremity edema. No calf tenderness Neuro: Oriented X 3. No motor deficit. Medications Administered Discontinued Medications Generic Name Dose Route Start Last Admin Trade Name Freq PRN Reason Stop Dose Admin Morphine Sulfate 15 mg 08/01/23 22:56 08/01/23 23:07 Morphine Sulfate Immed Release 15 Mg Tablet PO 08/01/23 22:57 15 mg ONCE ONE Administration Medical Decision Making Medical Decision Making [facility] Narrative: RME- 52 year old female presents for evaluation of abominal pain and bloody stool for three days, She reports abdominal pain starting last week and she has been on Pepcid, Sucralfate, and Omeprazole since last week after being seein at [facility]. She reports dark red stool and severe abdominal pain. Plan for labs. Patient has stable labs likely has chronic abdominal pain no signs of acute infection his H&H stable patient advised to follow with GI for endoscopy Differential Diagnosis Differential Diagnoses: The differential diagnosis associated with the presentation includes Gastritis/ chronic abdominal pain/ hemorrhoid bleed/cholelithiasis/cholecystitis Lab Data [facility] Lab Attestation statement: I reviewed the patient's lab results. 08/01/23 18:03 08/01/23 18:03 Labs: Lab Results 08/01/23 Range/Units 18:03 WBC 5.9 (4.8-10.8) X10*3/uL RBC 4.17 L (4.20-5.50) X10*6/uL Hgb 10.4 L (12.0-16.0) g/dl Hct 33.3 L (37.0-47.0) % MCV 79.9 L (80.0-98.0) fL MCH 24.9 L (27.0-33.0) pg MCHC 31.2 (31.0-35.0) g/dl RDW 16.6 H (11.0-16.0) % Plt Count 200 (160-400) X10*3/uL MPV 11.4 (9.4-12.3) fL Immature Gran % (Auto) 0.3 (0.0-0.4) % Neut % (Auto) 74.8 H (45-73) % Lymph % (Auto) 19.0 L (20-40) % [facility] [facility] % (Auto) 5.6 (2-11) % Eos % (Auto) 0.0 (0-4) % Baso % (Auto) 0.3 (0-2) % Lymph # (Auto) 1.1 L (1.2-4.9) X10*3/uL [facility] [place] [facility] # (Auto) 0.3 (0.1-1.2) X10*3/uL Eos # (Auto) 0.0 (0.0-0.4) X10*3/uL Baso # (Auto) 0.0 (0.0-0.2) X10*3/uL Abs Immat Gran (auto) 0.02 (0.00-0.03) X10*3/uL Absolute Neuts (auto) 4.4 (2.0-8.3) x10*3/uL Absolute Nucleated RBC 0.000 (0.0-0.012) X10*3/uL Nucleated RBC % (auto) 0.0 (0.0-0.2) /100WBC PT 12.0 (11.1-13.3) SEC INR 1.0 (0.9-1.1) APTT 31.0 (26.0-36.4) SEC Sodium 140 (135-145) mmol/L Potassium 4.4 (3.3-5.1) mmol/L Chloride 110 H (96-108) mmol/L Carbon Dioxide 21 L (22-29) mmol/L Anion Gap 13 (12-20) BUN 10 (9-16) mg/dL Creatinine 0.93 (0.5-1.4) mg/dL Estim Creat Clear Calc 71.7 Estimated GFR > 60 Random Glucose 113 (60-115) mg/dL Calcium 9.4 (8.4-10.2) mg/dL Total Bilirubin 0.2 (0.0-1.0) mg/dL AST 15 (5-31) U/L ALT 15 (0-31) U/L Alkaline Phosphatase 86 (39-117) U/L Troponin I High Sens < 2.7 (<3.5-17.0) ng/L Total Protein 6.7 (6.5-8.0) g/dL Albumin 4.1 (3.5-5.0) g/dL Lipase 29 (8-78) U/L Discharge Plan Discharge Clinical Impression: Abdominal pain, chronic, epigastric Patient Disposition: Home, Self-Care Instructions: Gastroesophageal Reflux Disease (ED), Abdominal Pain (ED) Additional Instructions: Continue medications Protonix and sucralfate as prescribed Pain medication as prescribed Avoid fried and spicy food Drink plenty of fluids 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 No Action risperidone [Risperdal] 1 mg Tablet 1 mg PO BEDTIME albuterol sulfate [Ventolin HFA] 90 mcg/actuation Hfa Aerosol Inhaler 2 puff inhalation RQ4H PRN (Reason: Shortness Of Breath) Qty: 6.7 0RF montelukast 10 mg Tablet 10 mg PO BEDTIME trazodone 100 mg Tablet 200 mg PO BEDTIME diltiazem HCl 120 mg capsule,extended release 24hr 1 cap PO DAILY escitalopram oxalate 20 mg tablet 40 mg PO DAILY Patient Comments: Unsure of dosage Rx Instructions: patient states she was recently increased to 40 mg /day lorazepam [Ativan] 1 mg tablet 2 mg PO DAILY PRN (Reason: anxiety) warfarin 3 mg tablet 8 mg PO DAILY@1800 Rx Instructions: patient was supposed to increase to 8 mg daily, but last dose she actually had was for 5 mg on 11/07/21 pantoprazole 40 mg tablet,delayed release (DR/EC) 1 tab PO BEDTIME insulin aspart U-100 [Novolog FlexPen U-100 Insulin] 100 unit/mL (3 mL) insulin pen 2 - 16 unit subcut TID Rx Instructions: per sliding scale Lantus Solostar U-100 Insulin 100 unit/mL (3 mL) insulin pen 15 unit subcut BEDTIME cetirizine 10 mg Tablet 10 mg PO BEDTIME Eliquis 5 mg tablet 5 mg PO BID 30 Days Qty: 60 0RF Trelegy Ellipta 200-62.5-25 mcg blister with device 1 inh inhalation DAILY 30 Days Qty: 1 6RF spironolactone 25 mg tablet PO diazepam 2 mg tablet PO risperidone 2 mg tablet PO buspirone 15 mg tablet 15 mg PO Referrals: Willem Hernandez MD [Physician] - 2 weeks Interventions: ED Discharge Assessment Last Done: 08/02/23 00:16 Discharge Date/Time: 08/02/23 00:17
[2023-08-01 18:08] LABS: MANUAL DIFF FLAG NO
[2023-08-01 18:14] LABS: Basophils Percent Auto 0.3 % (0-2); Hematocrit 33.3 % (37.0-47.0); Hemoglobin 10.4 g/dl (12.0-16.0); Imm Gran Abs Auto 0.02 X10*3/uL (0.00-0.03); Imm Gran Pct Auto 0.3 % (0.0-0.4); Lymphocytes Absolute Auto 1.1 X10*3/uL (1.2-4.9); Mean Corpuscular HGB Conc 31.2 g/dl (31.0-35.0); Mean Corpuscular Hemoglobin 24.9 pg (27.0-33.0); Mean Corpuscular Volume 79.9 fL (80.0-98.0); Mean Platelet Volume 11.4 fL (9.4-12.3); Monocytes Absolute Auto 0.3 X10*3/uL (0.1-1.2); Monocytes Percent Auto 5.6 % (2-11); Neutrophils Absolute Auto 4.4 x10*3/uL (2.0-8.3); Neutrophils Percent Auto 74.8 % (45-73); Platelet Count 200 X10*3/uL (160-400); Red Blood Count 4.17 X10*6/uL (4.20-5.50); Red Cell Distribution Width 16.6 % (11.0-16.0); White Blood Count 5.9 X10*3/uL (4.8-10.8)
[2023-08-01 18:22] LABS: Alanine Aminotransferase 15 U/L (0-31); Albumin Level 4.1 g/dL (3.5-5.0); Alkaline Phosphatase 86 U/L (39-117); Anion Gap 13 (12-20); Aspartate Amino Transferase 15 U/L (5-31); Bilirubin Total 0.2 mg/dL (0.0-1.0); Blood Urea Nitrogen 10 mg/dL (9-16); Calcium 9.4 mg/dL (8.4-10.2); Carbon Dioxide 21 mmol/L (22-29); Chloride 110 mmol/L (96-108); Creatinine Clr Calc Pharmacy 71.7; Estimated Glomerular Filt Rate > 60; Glucose Random 113 mg/dL (60-115); Lipase 29 U/L (8-78); Potassium 4.4 mmol/L (3.3-5.1); Sodium 140 mmol/L (135-145); Total Protein 6.7 g/dL (6.5-8.0)
[2023-08-01 18:31] LABS: Troponin-I High Sensitivity < 2.7 ng/L (<3.5-17.0)
[2023-08-01 22:38] VITALS: BP 130/69; PULSE 87; RESP 20; TEMP 36.8; O2SAT 98
--- NOTE | 2023-08-01 22:58 | PC.NURSE ---
Dr. Westbrook to bedside for primary eval.
[2023-08-01] MEDS: Morphine Sulfate Immed Release 15 MG TABLET PO (23:07)
== END 2023-08-02 00:17 | disposition home or self-care (01) ==
PROVIDERS: Physician Assistant; Emergency Provider Internal Medicine
DX: G89.29 Other chronic pain (principal); R10.13 Epigastric pain; I10 Essential (primary) hypertension; I48.91 Unspecified atrial fibrillation; Z86.711 Personal history of pulmonary embolism; Z86.718 Personal history of other venous thrombosis and embolism; Z79.4 Long term (current) use of insulin; Z79.899 Other long term (current) drug therapy; Z87.891 Personal history of nicotine dependence; Z79.01 Long term (current) use of anticoagulants
CPT/HCPCS: 36415; 80053; 83690; 84484; 85025; 85610; 85730; 99283; 99284